=== PATIENT | male | born 1955 | race African-American/Black ===

== ENCOUNTER 2016-05-25 06:00 | Inpatient (IN) | payer MEDICARE, MEDICAID ==
[~2016-05-25] VITALS: Ht 185.4 cm; Wt 75.0 kg
--- NOTE | ~2016-05-25 | HEMODYNAMI ---
PATIENT:VIVIEN REYES SR MEDICAL RECORD: [id number] : 57 LOCATION:[facility] [facility]# [id number] ADMISSION DATE: 05/25/16 Generatedon:05/26/201610:07 Patient name: VIVIEN REYES Patient #: [id number] : 1955 Date of study: 05/26/2016 Page: Of Hemodynamic Procedure Report Patient Data Patient Demographics Procedure consent was obtained First Name: VIVIEN Gender: Male Last Name: ERIC Suffix: [facility] Initial: D : 1955 Patient #: [id number] Age: 61 year(s) Race: Black SSN: [id number] Additional ID: [id number] Contact details [address]: [address] [place] [address] State: [place] City: [place] Zip code: [address] Past Medical History Allergies Allergen Reaction Date Comments Reported Other allergy 01/01/2016 penicillin Penicillins 01/02/2016 Penicillins 05/25/2016 Admission Admission Data Admission Date: 05/25/2016 Admission Time: 16:47 Arrival Date: 05/25/2016 Arrival Time: 10:30 Admit Source: Other Insurance Payor: Medicare Room #: D.2116 Height (in.): 73 BSA: 1.96 (m2) Height (cm.): 185.42 BMI: 21.11 (kg/m2) Weight (lbs.): 160 Weight (kg.): 72.57 Lab Results Lab Result Date: 05/25/2016 Lab Result Time: 0:00 Biochemistry Name Units Result Min Max BUN mg/dl 16 --(---*)-- 7 18 Creatinine mg/dl 1.4 --(----)*- 0.6 1.3 CBC Name Units Result Min Max Hemoglobin g/dl 11.1 *-(----)-- 13.5 17.5 Procedure Procedure Types Cath Procedure Diagnostic Procedure FFR/IVUS Intra-Coronary IVUS Initial PCI Procedure Coronary Stent Initial Miscellaneous Procedures Moderate Sedation up to 45 minutes Procedure Description Procedure Date Procedure Date: 05/26/2016 Procedure Start Time: 9:51 Procedure End Time: 10:07 Procedure Staff Name Function Gio Gomez MD Performing Physician Kell Ang RN Nurse Vidal Donnelly RN Service And Repair Supervisor Gissell Murguia RT Scrub Ramirez Arrieta RT Monitor Procedure Data Cath Procedure Fluoroscopy Diagnostic fluoroscopy Total fluoroscopy Time: 4 time: 4 min min Diagnostic fluoroscopy Total fluoroscopy dose: 342 dose: 342 mGy mGy Contrast Material Contrast Material Type Amount (ml) Isovue 300 74 Entry Location Entry Primary Successful Side Size Upsize Upsize Entry Closure Succes sful Closure Location (Fr) 1 (Fr) 2 (Fr) Remarks Device Remarks Femoral Left 6 Fr Exoseal artery Short Estimated blood loss: 10 ml Procedure Complications No complications Procedure Medications Medication Administration Route Dosage Oxygen NC 2 l/min Lidocaine 2% added to field 20 Heparin Flush Bag added to field 2 bags (1000units/500ml NS) 0.9% NaCl I.V. 100 ml/hr Versed I.V. 1 mg Fentanyl I.V. 50 mcg Fentanyl I.V. 50 mcg Versed I.V. 1 mg Versed I.V. 1 mg Fentanyl I.V. 50 mcg Versed I.V. 1 mg Fentanyl I.V. 50 mcg Heparin Bolus I.V. 4000 units Hemodynamics Rest BSA: 1.96 (m2) HGB: 11.1 (g/dl) O2 Consumption: Estimated: 247.26 (ml/min) O2 Co nsumption indexed: Estimated:126.15 (ml/min/m) Heart Rate: 93 (bpm) Snapshots Pre Cath Intra NCS Post Cath Vital Signs Time Heart Resp SPO2 etCO2 IQ2oqup NIBP (mmHg) Rhythm Pain Sedation Rate (ipm) (%) (mmHg) (mmHg) Status Level (bpm) 9:05:33 95 24 100 0 0 115/78(94) NSR 0 (11) 10(A) , No pain 9:09:37 93 23 100 0 0 120/82(101) NSR 0 (11) 10(A) , No pain 9:13:40 94 19 100 0 0 117/82(94) NSR 0 (11) 10(A) , No pain 9:17:46 93 21 100 0 0 118/73(99) NSR 0 (11) 10(A) , No pain 9:21:52 93 21 99 0 0 118/76(93) NSR 0 (11) 10(A) , No pain 9:25:56 91 22 99 0 0 121/78(93) NSR 0 (11) 10(A) , No pain 9:30:03 95 22 100 0 0 114/71(88) NSR 0 (11) 10(A) , No pain 9:34:09 92 18 98 0 0 111/69(91) NSR 0 (11) 9(A) , No pain 9:38:15 90 19 99 0 0 107/67(86) NSR 0 (11) 9(A) , No pain 9:42:18 87 19 99 0 0 114/69(94) NSR 0 (11) 9(A) , No pain 9:46:20 92 22 94 0 0 106/82(97) NSR 0 (11) 9(A) , No pain 9:50:30 88 15 95 0 0 114/62(100) NSR 0 (11) 9(A) , No pain 9:54:32 98 20 94 0 0 110/85(92) NSR 0 (11) 9(A) , No pain 9:58:34 95 20 96 0 0 120/77(86) NSR 0 (11) 10(A) , No pain 10:02:41 96 31 95 0 0 117/70(90) NSR 0 (11) 10(A) , No pain 10:06:45 97 20 98 0 0 120/77(99) NSR 0 (11) 10(A) , No pain Medications Time Medication Route Dose Verified Delivered Reason Notes Effectiveness by by 9:12:26 Oxygen NC 2 Gio Castorena used for l/min Patricia Ang RN procedure 9:12:37 Lidocaine 2% added 20ml Gio Powers for local to vial Patricia Gomez MD anesthetic field 9:12:42 Heparin Flush added 2 Gio Powers used for Bag to bags Patricia Gomez MD procedure (1000units/500ml field NS) 9:12:50 0.9% NaCl I.V. 100 Giocarmen Castorena Per physician ml/hr Patricia Ang RN 9:32:33 Versed I.V. 1 mg Gio Buffie for sedation Patricia Ang RN 9:32:38 Fentanyl I.V. 50 Gio Buffie for sedation mcg Patricia Ang RN 9:37:05 Fentanyl I.V. 50 Gio Buffie for sedation mcg Patricia Ang RN 9:37:15 Versed I.V. 1 mg Gio Buffie for sedation Patricia Ang RN 9:48:19 Versed I.V. 1 mg Gio Buffie for sedation Patricia Ang RN 9:48:22 Fentanyl I.V. 50 Gio Buffie for sedation mcg Patricia Ang RN 9:52:08 Heparin Bolus I.V. 4000 Gio Buffie for verifie d units Patricia Ang RN anticoagulation with dr gomez 9:55:17 Versed I.V. 1 mg Gio Buffie for sedation Patricia Ang RN 9:55:26 Fentanyl I.V. 50 Gio Estevezie for sedation mcg Patricia Ang RN Procedure Log Time Note 8:53:06 Patient Height : 73 inches 8:53:06 Patient Weight : 160 lbs 8:53:07 Vidal Donnelly RN sent for patient. Start room use. 8:53:08 Time tracking: Regular hours 8:53:13 Plan of Care:Hemodynamics will remain stable., Cardiac rhythm will remain stable., Comfort level will be maintained., Respiratory function will remain adequate., Patient/ family verbilizes understanding of procedure., Procedure tolerated without complication., Recovers from procedure without complications.. 9:04:28 Patient received from PCU to CCL 1 Alert and oriented. Tansferred to table in Supine position. 9:04:29 Warm blankets applied, and connie hugger turned on for patient comfort. 9:04:29 Correct patient and procedure confirmed by team. 9:04:31 Signed procedure consent form obtained from patient. 9:04:32 ECG and BP/O2 sat monitors applied to patient. 9:04:33 Vital chart was started 9:04:34 Full Disclosure recording started 9:04:37 Rhythm: sinus rhythm 9:07:45 H&P Date Dictated: 05/26/2016 Within 30 days and on chart.. 9:07:47 Pre-procedure instructions explained to patient. 9:07:47 Pre-op teaching completed and patient verbalized understanding. 9:07:48 Family in waiting room. 9:07:50 Patient NPO since Midnight. 9:07:52 Is the patient allergic to Iodine/contrast media? No. 9:07:53 Is patient on blood thinner?Yes 9:07:56 ACC The patient was administered the following blood thiners within the last 24 hours: ACCPlavix 9:07:58 Patient diabetic? No. 9:08:01 Previous problem with sedation/anesthesia? No ? 9:08:03 Snore? No 9:08:05 Sleep apnea? No 9:08:06 Deviated septum? No 9:08:07 Opens mouth fully? Yes 9:08:07 Sticks out tongue? Yes 9:08:09 Airway obstruction? No ? 9:08:11 Dentures? No ? 9:08:14 Pre procedure: left dorsailis pedis pulse 1+ Palpable, but thready & weak; easily obliterated 9:08:17 Patient pain scale 0/10 ?. 9:08:24 IV patent on arrival in left forearm with 0.9% NaCl at [facility]. 9:08:26 Lab results completed and on chart. 9:08:30 Left groin area was prepped with chlora-prep and draped in sterile fashion 9:08:32 Alarms reviewed by R. N. 9:08:32 Sharps counted by scrub and verified by R.N. 9:08:36 Use device set Femoral PCI 9:08:37 Tegaderm 4 x 4 opened to sterile field. 9:08:38 Acist Manifold opened to sterile field. 9:08:39 Acist Syringe opened to sterile field. 9:08:40 Acist Hand Control opened to sterile field. 9:08:40 Bag Decanter opened to sterile field. 9:08:40 Medline Cath Pack opened to sterile field. 9:08:41 Terumo 6Fr Troy Sheath opened to sterile field. 9:08:41 St Thien 260cm J .035 wire opened to sterile field. 9:08:41 Merit BasixCompak Inflation Kit opened to sterile field. 9:12:26 Oxygen 2 l/min NC was given by Kell Ang RN; used for procedure; 9:12:37 Lidocaine 2% 20ml vial added to field was given by Gio Gomez MD; for local anesthetic; 9:12:42 Heparin Flush Bag (1000units/500ml NS) 2 bags added to field was given by Gio Gomez MD; used for procedure; 9:12:50 0.9% NaCl 100 ml/hr I.V. was given by Kell Ang RN; Per physician; 9:14:06 Baseline sample Acquired. 9:14:19 Tegaderm 4 x 4 opened to sterile field. 9:14:21 Acist Manifold opened to sterile field. 9:14:22 Acist Hand Control opened to sterile field. 9:14:23 Acist Syringe opened to sterile field. 9:14:23 Bag Decanter opened to sterile field. 9:14:24 Medline Cath Pack opened to sterile field. 9:14:24 Terumo 5Fr Troy Sheath opened to sterile field. 9:14:24 St Thien 260cm J .035 wire opened to sterile field. 9:18:40 Zero performed for pressure channel P1 9:19:43 Zero performed for pressure channel P1 9:26:15 Physician arrived 9::15 --------ALL STOP TIME OUT------ 9::15 Final Timeout: patient, procedure, and site verified with staff and physician. All members of the team are in agreement. 9:26:18 Left groin site verified by team. 9::21 Physical assessment completed. ASA score P 2 - A patient with mild systemic disease as per Gio Gomez MD. 9:26:26 Sedation plan: IV Moderate Sedation Versed, Fentanyl 9:32:33 Versed 1 mg I.V. was given by Kell Ang RN; for sedation; 9:32:38 Fentanyl 50 mcg I.V. was given by Kell Ang RN; for sedation; 9:37:05 Fentanyl 50 mcg I.V. was given by Kell Ang RN; for sedation; 9:37:15 Versed 1 mg I.V. was given by Kell Ang RN; for sedation; 9:48:19 Versed 1 mg I.V. was given by Kell Ang RN; for sedation; 9:48:22 Fentanyl 50 mcg I.V. was given by Kell Ang RN; for sedation; 9:51:01 Cordis 6FR XBLAD 3.5 guide catheter opened to sterile field. 9:51:02 Baltazar Whisper J 300cm 0.014 guide wire opened to sterile field. 9:51:03 Merit BasixCompak Inflation Kit opened to sterile field. 9:51:04 [place] Flanagan Eagleye IVUS Catheter opened to sterile field. 9:51:08 Procedure started. 9:51:11 Local anesthetic to left femerol artery with Lidocaine 2% by Gio Gomez MD.INITIAL ACCESS ONLY 9:51:17 Terumo 6Fr Troy Sheath opened to sterile field. 9:51:25 A 6 Fr Short sheath was inserted into the Left Femoral artery 9:51:39 6 Fr XBLAD 3.5 guide catheter was inserted over the wire 9:51:41 WHISPER wire advanced. 9:51:44 Wire advanced across lesion. 9:52:08 Heparin Bolus 4000 units I.V. was given by Kell Ang RN; for anticoagulation; verified with dr gomez 9:52:15 IVUS catheter advanced over wire. 9:52:17 IVUS pass to LAD lesion performed. 9:53:59 IVUS catheter removed over wire. 9:55:17 Versed 1 mg I.V. was given by Kell Ang RN; for sedation; 9:55:26 Fentanyl 50 mcg I.V. was given by Kell Ang RN; for sedation; 9:56:49 Inflation Number: 1 A Medtronic Resolute 3.5 X 22 stent was prepped and advanced across the Mid LAD. The stent was deployed at 17 MIKKI for 0:10 (min:sec). 9:58:19 ACC PCI Site: mLAD has 71% stenosis. 9:58:21 ACC Pre-intervention RADHA Flow is 3. 9:58:23 ACC Post-intervention RADHA Flow is 3. 9:59:53 Stent catheter was removed intact over wire. 9:59:53 Wire removed. 9:59:54 Guide catheter removed. 10:00:27 Cordis 6Fr Exoseal opened to sterile field. 10:00:36 Sheath removed intact; hemostasis achieved with Exoseal to the Left Femoral artery. 10:00:38 Procedure ended.(Physican Out) 10:02:54 Fluoroscopy time 04.00 minutes. 10:02:57 Flurop Dose total: 342 10::57 Fluoroscopy dose: 342 mGy 10:03:01 Contrast amount:Isovue 300 74ml. 10:03:02 Sharps counted by scrub and verified by R.N. 10:03:04 Insertion/operative site no bleeding no hematoma. 10:03:06 Post-op/insertion site Left Femoral artery dressed using a 4 x 4 and Tegaderm. 10:03:11 Post left femerol artery:stable, soft, clean and dry 10:03:19 Post Procedure Pulses reassessed and unchanged 10:03:22 Post-procedure physical assessment completed. ASA score P 2 - A patient with mild systemic disease as per Gio Gomez MD. 10:03:24 Post procedure rhythm: unchanged. 10:03:26 Estimated blood loss: 10 ml 10:03:28 Post procedure instruction explained to patient.Patient verbalizes understanding. 10:03:28 Patient needs reinforcement of post procedure teaching. 10:04:07 Procedure type changed to Cath procedure, Diagnostic procedure, FFR/IVUS, Intra-Coronary IVUS Initial, PCI procedure, Coronary Stent Initial, Miscellaneous Procedures, Moderate Sedation up to 45 minutes 10:06:25 Procedure and supply charges have been captured, reviewed, submitted and are correct. 10:06:27 Procedure Complication : No complications 10:06:29 Vital chart was stopped 10:06:29 See physician's report for complete and final results. 10:06:35 Report given to PCU. 10:06:37 Patient transfered to PCU with Stretcher. 10:07:07 Procedure ended. 10:07:07 Full Disclosure recording stopped 10:07:15 ACC-PCI Only Patient was given prescriptions, or instructed by Gio Gomez MD to start/continue the following medications upon discharge: Plavix 10:07:17 End room use (Document Last) Intervention Summary Intervention Notes Time ActionType Lesion and Equipment Action# Pressure Duration Attributes Used 9:56:49 Place stent Mid LAD Medtronic 1 17 00:10 Resolute 3.5 X 22 stent Device Usage Item Name Manufacture Quantity Catalog Hospital Part Current Minimal Lot# / Number Charge Number Stock Stock Serial# Code Tegaderm 4 3M 2 [id number] [id number] [id number] 5 x 4 Acist Acist 2 73921 712247 083640 291043 5 Manifold [employer] Inc Acist Acist 2 41006 228116 220618 441759 20 Syringe Medical Systems Inc Acist Hand Acist 2 15450 478851 493853 185769 5 Control Medical Systems Inc Bag Microtek 2 2002S 731833 25546 806351 5 Decanter Medical Inc. Medline Cardinal 2 [id number] 478940 39452 553974 5 Cath Pack Health Terumo 6Fr Terumo 2 [id number] 648124 021833 595833 [address] Thien St Thien 2 463032 874154 593365 499734 30 260cm J .035 wire Merit Merit 2 [id number] 260975 837804 287305 15 BasixCompak Medical Inflation Kit Terumo 5Fr Terumo 1 [id number] 982096 855343 046106 40 Troy Sheath Cordis 6FR Cardinal 1 [id number] 509617 970356 012294 10 XBLAD 3.5 Health guide catheter Baltazar Baltazar 1 [id number] 274593 645220 234090 5 Whisper J Vascular 300cm 0.014 guide wire [place] 1 [id number] 448318 254285 838139 8 Flanagan Eagleye IVUS Catheter Medtronic Medtronic 1 [id number] 927716 980967 8 [id number] Resolute 3.5 X 22 stent Cordis 6Fr Cardinal 1 EX600 871962 298958 933024 10 [employer] Signature Audit Gay Stage Time Signature Unsigned Intra-Procedure 05/26/2016 Ramirez Arrieta 10:07:38 AM RT(R) Signatures Monitor : Ramirez Arrieta RT Signature : Date : Time : [facility] [address] [place] [address]
--- NOTE | ~2016-05-25 | HEMODYNAMI ---
PATIENT:VIVIEN REYES SR MEDICAL RECORD: [id number] : 57 LOCATION:D.CAT ADMISSION DATE: 05/25/16 Generatedon:05/25/201613:05 Patient name: VIVIEN REYES Patient #: [id number] : 1955 Date of study: 05/25/2016 Page: Of Hemodynamic Procedure Report Patient Data Patient Demographics Procedure consent was obtained First Name: VIVIEN Gender: Male Last Name: ERIC Suffix: [facility] Initial: D : 1955 Patient #: [id number] Age: 61 year(s) Race: Black SSN: [id number] Additional ID: [id number] Contact details Address: [address] [place] [address] State: [place] City: [place] Zip code: [address] Past Medical History Allergies Allergen Reaction Date Comments Reported Other allergy 01/01/2016 penicillin Penicillins 01/02/2016 Penicillins 05/25/2016 Admission Admission Data Admission Date: 05/25/2016 Admission Time: 8:11 Arrival Date: 05/25/2016 Arrival Time: 10:30 Admit Source: Other Insurance Payor: Medicare Height (in.): 73 BSA: 1.96 (m2) Height (cm.): 185.42 BMI: 21.11 (kg/m2) Weight (lbs.): 160 Weight (kg.): 72.57 Lab Results Lab Result Date: 05/25/2016 Lab Result Time: 0:00 Biochemistry Name Units Result Min Max BUN mg/dl 16 --(---*)-- 7 18 Creatinine mg/dl 1.4 --(----)*- 0.6 1.3 CBC Name Units Result Min Max Hemoglobin g/dl 11.1 *-(----)-- 13.5 17.5 Procedure Procedure Types Cath Procedure Diagnostic Procedure [facility] LH w/Coronaries FFR/IVUS Intra-Coronary IVUS Initial PCI Procedure PTCA Initial Miscellaneous Procedures Moderate Sedation up to 30 minutes Procedure Description Procedure Date Procedure Date: 05/25/2016 Procedure Start Time: 12:42 Procedure End Time: 13:00 Procedure Staff Name Function Gio Gomez MD Performing Physician Georgie Lamb RN Nurse Campos Salguero RT Monitor Priyank Dominguez RT Scrub Procedure Data Cath Procedure Fluoroscopy Diagnostic fluoroscopy Total fluoroscopy Time: 5 time: 5 min min Diagnostic fluoroscopy Total fluoroscopy dose: 748 dose: 748 mGy mGy Contrast Material Contrast Material Type Amount (ml) Isovue 300 94 Entry Location Entry Primary Successful Side Size Upsize Upsize Entry Closure Succes sful Closure Location (Fr) 1 (Fr) 2 (Fr) Remarks Device Remarks Femoral Right 5 Fr 6 Fr Vascade artery Short Closure System Diagnostic catheters Device Type Used For End Catheter Placement Cordis 5Fr Pigtail LV Angiography Catheter (MP) Cordis 5Fr JL 4.0 Left Coronary Catheter (MP) Angiography Cordis 5Fr 3DRC Catheter Right Coronary (MP) Angiography Procedure Complications No complications Procedure Medications Medication Administration Route Dosage Oxygen NC 2 l/min Heparin Flush Bag added to field 2 bags (1000units/500ml NS) Lidocaine 2% added to field 20 Versed I.V. 1 mg Fentanyl I.V. 50 mcg Heparin Bolus I.V. 4000 units Versed I.V. 1 mg Fentanyl I.V. 50 mcg Versed I.V. 1 mg Fentanyl I.V. 50 mcg Versed I.V. 1 mg Fentanyl I.V. 50 mcg Hemodynamics Rest BSA: 1.96 (m2) HGB: 11.1 (g/dl) O2 Consumption: Estimated: 253.14 (ml/min) O2 Co nsumption indexed: Estimated:129.15 (ml/min/m) Heart Rate: 101 (bpm) Snapshots Pre Cath Intra NCS Post Cath Vital Signs Time Heart Resp SPO2 NIBP Rhythm Pain Sedation Rate (ipm) (%) (mmHg) Status Level (bpm) 12:16:59 90 13 97 119/79(89) NSR 0 (11) 10(A) , No pain 12:21:02 89 19 100 113/74(91) NSR 0 (11) 10(A) , No pain 12:25:06 91 20 100 112/74(91) NSR 0 (11) 10(A) , No pain 12:29:10 95 33 98 101/72(93) NSR 0 (11) 10(A) , No pain 12:33:10 93 18 99 104/71(84) NSR 0 (11) 10(A) , No pain 12:37:09 96 16 96 102/81(90) NSR 0 (11) 10(A) , No pain 12:41:09 93 16 98 109/69(80) NSR 0 (11) 10(A) , No pain 12:45:11 93 15 99 111/75(97) NSR 0 (11) 10(A) , No pain 12:49:12 100 20 97 101/74(87) NSR 0 (11) 9(A) , No pain 12:53:10 98 19 97 109/73(84) NSR 0 (11) 9(A) , No pain 12:57:09 98 21 97 118/76(92) NSR 0 (11) 9(A) , No pain 13:03:01 98 17 96 114/80(87) NSR 0 (11) 9(A) , No pain Medications Time Medication Route Dose Verified Delivered Reason Notes Effectiveness by by 12:17:40 Oxygen NC 2 Gio Georgie Per physician l/min Patricia Lamb RN 12:17:46 Heparin Flush added 2 Gio Gio used for Bag to bags Patricia Gomez MD procedure (1000units/500ml field NS) 12:17:54 Lidocaine 2% added 20ml Gio Gio used for to vial Patricia Gomez MD procedure field 12:40:28 Versed I.V. 1 mg Gio Georgie for sedation Patricia Lamb RN 12:40:36 Fentanyl I.V. 50 Gio Georgie for sedation mcg Patricia Lamb RN 12:43:21 Versed I.V. 1 mg Gio Georgie for sedation Patricia Lamb RN 12:43:31 Fentanyl I.V. 50 Gio Georgie for sedation mcg Patricia Lamb RN 12:45:08 Fentanyl I.V. 50 Gio Georgie for sedation mcg Patricia Lamb RN 12:45:48 Versed I.V. 1 mg Gio Georgie for sedation Patricia Lamb RN 12:47:53 Heparin Bolus I.V. 4000 Gio Georgie for dose units Patricia Lamb RN anticoagulation verified with dr gomez 12:48:17 Versed I.V. 1 mg Gio Jacques for sedation Patricia Lamb RN 12:48:32 Fentanyl I.V. 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 Start room use. 12:01:03 Lab Result : BUN 16 mg/dl 12:01:03 Lab Result : Hemoglobin 11.1 g/dl 12:01:03 Lab Result : Creatinine 1.4 mg/dl 12:08:36 Time tracking: Regular hours 12:08:41 Plan of Care:Hemodynamics will remain stable., Cardiac rhythm will remain stable., Comfort level will be maintained., Respiratory function will remain adequate., Patient/ family verbilizes understanding of procedure., Procedure tolerated without complication., Recovers from procedure without complications.. 12:12:22 Patient received from Outpatients to [facility] 2 Alert and oriented. Tansferred to table in Supine position. 12:12:23 Warm blankets applied, and connie hugger turned on for patient comfort. 12:12:24 Correct patient and procedure confirmed by team. 12:12:24 ECG and BP/O2 sat monitors applied to patient. 12:15:48 Vital chart was started 12:16:28 Baseline sample Acquired. 12:17:40 Oxygen 2 l/min NC was given by Georgie Lamb RN; Per physician; 12:17:46 Heparin Flush Bag (1000units/500ml NS) 2 bags added to field was given by Gio Gomez MD; used for procedure; 12:17:54 Lidocaine 2% 20ml vial added to field was given by Gio Gomez MD; used for procedure; 12:20:35 Baseline sample Acquired. 12:20:38 Rhythm: sinus rhythm 12:20:40 Full Disclosure recording started 12:26:01 H&P Date Dictated: 05/20/2016 Within 30 days and on chart., H&P Addendum completed by physician on day of procedure. (MUST COMPLETE FOR ALL OUTPATIENTS). 12:26:06 Pre-procedure instructions explained to patient. 12:26:06 Pre-op teaching completed and patient verbalized understanding. 12:26:08 Family unavailable. 12:26:10 Patient NPO since Midnight. 12:28:42 Patient allergic to Penicillins 12:28:44 Is the patient allergic to Iodine/contrast media? No. 12:28:48 Is patient on blood thinner?Yes 12:28:50 ACC The patient was administered the following blood thiners within the last 24 hours: ACCPlavix 12:28:52 Patient diabetic? No. 12:28:53 ----Pre-sedation anethsthesia assessment.---- 12:28:55 Previous problem with sedation/anesthesia? No ? 12:28:56 Snore? No 12:28:58 Sleep apnea? No 12:28:59 Deviated septum? No 12:29:03 Opens mouth fully? Yes 12:29:04 Sticks out tongue? Yes 12:29:07 Airway obstruction? Unknown ? 12:29:09 Dentures? No ? 12:29:11 Pre procedure: right dorsailis pedis pulse 1+ Palpable, but thready & weak; easily obliterated 12:29:16 Patient pain scale 0/10 ?. 12:29:19 IV patent on arrival in left antecubital with 0.9% NaCl at 10ml/hr. 12:29:21 Lab results completed and on chart. 12:29:25 Right groin area was prepped with chlora-prep and draped in sterile fashion 12:: Alarms reviewed by R. N. 12:: Sharps counted by scrub and verified by R.N. 12:: Physician paged 12:29:30 Use device set Femoral Dx 12:29:31 Acist Syringe opened to sterile field. 12:29:32 Bag Decanter opened to sterile field. 12:29:33 Medline Cath Pack opened to sterile field. 12:29:33 Terumo 5Fr [place] Sheath opened to sterile field. 12:29:33 St Thien 260cm J .035 wire opened to sterile field. 12::34 Acist Hand Control opened to sterile field. 12::35 Acist Manifold opened to sterile field. 12::35 Diagnostic Infinity 5Fr Multipack catheter opened to sterile field. 12:29:36 Tegaderm 4 x 4 opened to sterile field. 12:31:42 Zero performed for pressure channel P1 12:40:15 --------ALL STOP TIME OUT------ 12:40:16 Final Timeout: patient, procedure, and site verified with staff and physician. All members of the team are in agreement. 12:40:17 Right groin site verified by team. 12:40:20 Physical assessment completed. ASA score P 2 - A patient with mild systemic disease as per Gio Gomez MD. 12:40:24 Sedation plan: IV Moderate Sedation Versed, Fentanyl 12:40:28 Versed 1 mg I.V. was given by Georgie Lamb RN; for sedation; 12:40:36 Fentanyl 50 mcg I.V. was given by Georgie Lamb RN; for sedation; 12:42:01 Procedure started. 12:42:11 Local anesthetic to right femoral artery with Lidocaine 2% by Gio Gomez MD.INITIAL ACCESS ONLY 12:42:18 A 5 Fr sheath was inserted into the Right Femoral artery 12:42:23 A Cordis 5Fr Pigtail Catheter (MP) was advanced over the wire and used for LV Angiography. 12:42:27 LV angiography performed. 12:42:29 LV gram done using GARCIA 12::36 Injector settings: Ml/sec: 10, Volume: 20, 12:43:21 Versed 1 mg I.V. was given by Georgie Lamb RN; for sedation; 12:43:31 Fentanyl 50 mcg I.V. was given by Georgie Lamb RN; for sedation; 12:43:31 EF : 20 % 12:43:57 Catheter removed. 12:44:14 A Cordis 5Fr JL 4.0 Catheter (MP) was advanced over the wire and used for Left Coronary Angiography. 12:44:39 LCA angiography performed. 12:44:48 Catheter removed. 12:44:54 A Cordis 5Fr 3DRC Catheter (MP) was advanced over the wire and used for Right Coronary Angiography. 12:44:57 RCA angiography performed. 12:45:08 Fentanyl 50 mcg I.V. was given by Georgie Lamb RN; for sedation; 12:45:32 Catheter removed. 12:45:48 Versed 1 mg I.V. was given by Georgie Lamb RN; for sedation; 12:46:02 Terumo 6Fr [place] Sheath opened to sterile field. 12:46:02 Baltazar Whisper J 300cm 0.014 guide wire opened to sterile field. 12:46:03 [place] IVUS Catheter opened to sterile field. 12:46:03 PoachIt BasixCompak Inflation Kit opened to sterile field. 12:46:04 Machinimatronic Launcher 6Fr 3DRC guide catheter opened to sterile field. 12:46:20 Sheath upsized to a 6 Fr Short. 12:46:25 6 Fr 3drc guide catheter was inserted over the wire 12:46:28 whisper wire advanced. 12:46:31 FFR/IVUS 12:46:31 IVUS catheter advanced over wire. 12:46:33 IVUS pass to RCA lesion performed. 12:47:53 Heparin Bolus 4000 units I.V. was given by Georgie Lamb RN; for anticoagulation; dose verified with dr gomez 12:48:10 Procedure type changed to Cath procedure, Diagnostic procedure, LHC, LHC w/Coronaries, FFR/IVUS, Intra-Coronary IVUS Initial, PCI procedure, PTCA Initial, Miscellaneous Procedures, Moderate Sedation up to 30 minutes 12:48:17 Versed 1 mg I.V. was given by Georgie Lamb RN; for sedation; 12:48:32 Fentanyl 50 mcg I.V. was given by Georgie Lamb RN; for sedation; 12:51:23 IVUS catheter removed over wire. 12:52:58 Inflation number: 1 A NC Emerge OTW 5.0 x 12 balloon was prepped and advanced across the Mid RCA, then inflated to 13 MIKKI for 0:10 (min:sec). 12:53:08 Inflation number: 2 The NC Emerge OTW 5.0 x 12 balloon was reinflated across the Mid RCA, to 13 MIKKI for 0:09 (min:sec). 12:53:20 Inflation number: 3 The NC Emerge OTW 5.0 x 12 balloon was reinflated across the Mid RCA, to 13 MIKKI for 0:11 (min:sec). 12:53:45 Inflation number: 4 The NC Emerge OTW 5.0 x 12 balloon was reinflated across the Mid RCA, to 9 MIKKI for 0:10 (min:sec). 12:54:59 Balloon removed over the wire. 12:54:59 Wire removed. 12:55:00 Guide catheter removed. 12:55:32 Medtronic Launcher 6Fr AR 2.0 guide catheter opened to sterile field. 12:55:43 whisper wire advanced. 12:57:33 Inflation number: 5 The NC Emerge OTW 5.0 x 12 balloon was reinflated across the Mid RCA, to 17 MIKKI for 0:15 (min:sec). 12:57:47 Inflation number: 6 The NC Emerge OTW 5.0 x 12 balloon was reinflated across the Mid RCA, to 17 MIKKI for 0:10 (min:sec). 12:57:58 Inflation number: 7 The NC Emerge OTW 5.0 x 12 balloon was reinflated across the Mid RCA, to 17 MIKKI for 0:00 (min:sec). 12:58:05 Balloon removed over the wire. 12:58:06 Wire removed. 12:58:06 Guide catheter removed. 12:58:11 Contrast amount:Isovue 300 94ml. 12:58:17 Sheath removed intact; hemostasis achieved with Vascade Closure System to the Right Femoral artery. 12:58:24 Vascade 6/7 Fr Closure Device opened to sterile field. 12:58:26 Procedure ended.(Physican Out) 12:58:49 Fluoroscopy time 05.00 minutes. 12:58:54 Fluoroscopy dose: 748 mGy 12:58:54 Flurop Dose total: 748 12:58:55 Sharps counted by scrub and verified by R.N. 12:58:56 Insertion/operative site no bleeding no hematoma. 12:58:58 Post-op/insertion site Right Femoral artery dressed using a 4 x 4 and Tegaderm. 12:59:01 Post right femoral artery:stable 12:59:03 Post Procedure Pulses reassessed and unchanged 12:59:05 Post procedure: right dorsailis pedis pulse 1+ Palpable, but thready & weak; easily obliterated. 12:59:11 Post procedure rhythm: sinus tachycardia 12:59:13 Post procedure instruction explained to patient.Patient verbalizes understanding. 12:59:43 Procedure and supply charges have been captured, reviewed, submitted and are correct. 12:59:48 Procedure Complication : No complications 13:00:27 Vital chart was stopped 13:00:28 See physician's report for complete and final results. 13:00:31 Report given to PCU. 13:00:34 Patient transfered to PCU with Bed. 13:00:36 Procedure ended. 13:00:36 Full Disclosure recording stopped 13:00:39 End room use (Document Last) Intervention Summary Intervention Notes Time ActionType Lesion and Equipment Action# Pressure Duration Attributes Used 12:52:58 Inflate Mid RCA NC Emerge 1 13 00:10 balloon OTW 5.0 x 12 balloon 12:53:08 Reinflate Mid RCA NC Emerge 2 13 00:09 balloon OTW 5.0 x 12 balloon 12:53:20 Reinflate Mid RCA NC Emerge 3 13 00:11 balloon OTW 5.0 x 12 balloon 12:53:45 Reinflate Mid RCA NC Emerge 4 9 00:10 balloon OTW 5.0 x 12 balloon 12:57:33 Reinflate Mid RCA NC Emerge 5 17 00:15 balloon OTW 5.0 x 12 balloon 12:57:47 Reinflate Mid RCA NC Emerge 6 17 00:10 balloon OTW 5.0 x 12 balloon 12:57:58 Reinflate Mid RCA NC Emerge 7 17 00:00 balloon OTW 5.0 x 12 balloon Device Usage Item Name Manufacture Quantity Catalog Number Hospital Part Current Mini mal Lot# / Charge Number Stock Stock Serial# Code Acist Acist 1 19841 [id number] 816960 700746 20 Syringe Medical Systems Inc Bag Microtek 1 2002S 312517 16885 983618 5 Carrot.mx Medical Inc. Medline Cardinal 1 [id number] 226589 63203 096425 5 Cath Pack [employer] Terumo 5Fr Terumo 1 [id number] 720839 736826 270558 [address] St Thien 1 151169 449933 168495 020687 30 260cm J .035 wire Acist Hand Acist 1 25037 752486 241663 086208 5 Control Medical Systems Inc Acist Acist 1 09211 878551 510970 776573 5 Kontera Medical Systems Inc Diagnostic Cardinal 1 [id number] 956590 51423 181488 30 Infinity Health 5Fr Multipack catheter Tegaderm 4 3M 1 1626W 092124 722512 182212 5 x 4 Cordis 5Fr Cardinal 1 328563 5 Pigtail Health Catheter (MP) Cordis 5Fr Cardinal 1 276161 5 JL 4.0 Health Catheter (MP) Cordis 5Fr Cardinal 1 667578 5 3DRC Health Catheter (MP) Terumo 6Fr Terumo 1 [id number] 631258 320876 944158 40 [place]ps [place] Sheath Baltazar Baltazar 1 [id number] 716269 610575 822878 5 Whisper J Vascular 300cm 0.014 guide wire [place] 1 [id number] 315072 248312 871144 8 [place] IVUS Catheter Merit Merit 1 [id number] 696395 618503 550723 15 BasixCompak Medical Inflation Kit Medtronic Medtronic 1 [id number] 256525 972621 882290 1 Launcher 6Fr 3DRC guide catheter NC Emerge [place] 1 [id number] 952369 196278 387425 5 [id number] OTW 5.0 x Scientific 12 balloon Medtronic Medtronic 1 [id number] 697576 18073 364854 1 Launcher 6Fr AR 2.0 guide catheter Vascade 6/7 Cardiva 1 [id number] 171079 480043 732799 5 Fr Closure Medical, Device Inc. Signature Audit [place] Stage Time Signature Unsigned Intra-Procedure 05/25/2016 Campos Salguero 1:05:42 PM RT(R) Signatures Monitor : Campos Salguero RT Signature : Date : Time : [facility] [address] [place] [address]
[~2016-05-25 06:00] MED LIST: ASPIRIN325 MG PO; BAYER CHEWABLE81 MG PO; CARDIZEM CD120 MG PO; CLEOCIN HCL300 MG PO; COREG12.5 MG PO; FLAGYL500 MG PO; FLUTICASONE PRO16 GM NASAL; HYDROCODON-ACE1 EAC7 PO; HYDROCODONE-APA1 TAB PO; KEFLEX500 MG PO; LEVAQUIN500 MG PO; MACROBID100 MG PO; MIRALAX17 GM PO; MUCINEX DM ER1 EAC1 PO; NAPROSYN500 MG PO; NICODERM C1 PATCH .2 TRANSDERM; PLAVIX75 MG PO; PREDNISONE20 MG PO; SINGULAIR10 MG PO; TESSALON PERLE100 MG PO
[2016-05-25 08:44] VITALS: BP 122/78; BMI 21.8
[2016-05-25 09:01] LABS: BASOPHILS 0.3 % (0.0-2.0); EOSINOPHILS 5.2 % (0-7); HEMOGLOBIN 11.1 g/dL (13.5-17.5); IMMATURE GRANULOCYTES 0.4 % (0-5); LYMPHOCYTES 13.2 % (15-50); MCHC 32.6 g/dL (31.0-37.0); MCV 91.9 fL (80.0-100.0); MEAN PLATELET VOLUME 9.6 fL (7.4-10.4); MONOCYTES 10.4 % (2-11); NEUTROPHILS 70.5 % (40-80); PLATELET COUNT 360 10x3/uL (130-400); RDW 15.9 % (11.5-14.5); WBC 15.7 10x3/uL (4.8-10.8)
[2016-05-25 09:26] LABS: ANION GAP 12.6 mmol/L (8-16); CARBON DIOXIDE 26.6 mmol/L (21.0-32.0); CREATININE - SERUM 1.4 mg/dL (0.6-1.3); POTASSIUM - SERUM 4.2 mmol/L (3.5-5.1)
--- NOTE | 2016-05-25 13:43 | NUR ---
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 V/S STABLE TELEMERTY SHOWS SR. RIGHT GRON SOFT WITH DRSG DRY AND INTACT. PPP. CALL LIGHT IN REACH WITH SR UP. SEDATED BUT AROUSES EASILY
--- NOTE | 2016-05-25 14:18 | NUR ---
PT LYING QUIETLY. V/S STABLE . RIGHT GROIN SOFT WITH DRSG DRY AND INTACT. PPP. TELEMERTY SHOWS SR. DENIES ANY NEEDS. WILL MONITOR
[2016-05-25 14:20] VITALS: BP 114/80; Ht 185.4 cm; Wt 75.0 kg
--- NOTE | 2016-05-25 14:28 | NUR ---
ADMISSION ASSSESSMENT DONE. 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 MONITOR SHOWS NSR @ RATE OF 87. WILL CONTINUE TO MONITOR. CATH SITE IS CDI AND SHOWS NO EDEMA OR BLEEDING.
[2016-05-25 16:00] VITALS: BP 99/60
--- NOTE | 2016-05-25 18:23 | NUR ---
LYING QUIETLY. RIGHT GROIN SOFT WITH DSG DRY AND INTACT. UP TO BATHROOM. DENIES ANY NEEDS
--- NOTE | 2016-05-25 19:25 | NUR ---
INITIAL ROUNDS MADE. PT SITTING UP IN BED WATCHING TV WITH FAMILY IN ROOM. DISCUSSED PLAN OF CARE AND NPO AFTER [facility] FOR [facility] IN AM. QUESTIONS ANSWERED. DENIES NEEDS OR C/O AT THIS TIME.
[2016-05-25 20:00] VITALS: BP 131/87
[2016-05-26] VITALS (7 sets, daily range): BP systolic 103–121; BP diastolic 61–84
--- NOTE | 2016-05-26 00:38 | NUR ---
PHOTOGRAPHY COLORIST AT BEDSIDE FOR VS, NEEDS ADDRESSED. CALL LIGHT IN REACH. WILL CONT TO MONITOR.
--- NOTE | 2016-05-26 06:30 | NUR ---
RESTING WELL, WATCHING TV. DENIES NEEDS, CONT TO MONITOR.
--- NOTE | 2016-05-26 11:53 | NUR ---
Patient Name: VIVIEN REYES Admission Status: Elective Accout number: [id number] Admission Date: 05-25-2016 : 1955 Admission Diagnosis: Attending: TIA Current LOS: 1 Anticipated DC Date: 05-26-2016 Planned Disposition: Home Primary Insurance: [facility] [place] Discharge Planning Comments: * Is the patient Alert and Oriented? Yes 0 * How many steps to enter\exit or inside your home? 4 0 * PCP DR. HALL 0 * Pharmacy [facility] 0 * Preadmission Environment Home Alone 0 * ADLs Independent 0 * Equipment None 0 * Other Equipment NO MEDICAL EQUIPMENT PROVIDER PREFERENCE 0 * List name and contact numbers for known caregivers / representatives who currently or will assist patient after discharge: JEFF REYES, BROTHER, 0 * Community resources currently utilized None 0 * Please name any agencies selected above. NONE 0 * Additional services required to return to the preadmission environment? No 0 * Can the patient safely return to the preadmission environment? Yes 0 * Has this patient been hospitalized within the prior 30 days at any hospital? No 0 CM MET WITH PT IN ROOM TO DISCUSS DISCHARGE PLANNING AND NEEDS. PT REPORTS LIVING AT HOME INDEPENDENTLY AND ALONE. PT HAS NO MEDICAL EQUIPMENT AND NO OUTSIDE SERVICES ASSISTING IN THE HOME. CM DISCUSSED AVAILABILITY OF HOME HEALTH, REHAB SERVICES AND MEDICAL EQUIPMENT. PT DENIES DISCHARGE NEEDS, REPORTS HE WILL CALL IS SON OR A FRIEND FOR TRANSPORTATION HOME. Hemodialysis Charge Nurse: Robel Brown
[2016-05-26] MEDS ORDERED: COREG 3.1253.125 MG PO (13:22)
--- NOTE | 2016-06-01 10:08 | OP ---
PATIENT NAME: VIVIEN REYES SR MEDICAL RECORD: [id number] :[birth year] LOCATION:D.M2 D.2116 ADMISSION DATE:05/25/16 SURGEON: SALBADOR SHEA MD DATE OF OPERATION: 05/26/2016 PROCEDURES: 1. PTCA stent LAD. 2. Intravascular ultrasound of the LAD. 3. Selective coronary angiography. INDICATION: Cardiomyopathy, congestive heart failure, angina and coronary artery disease. PROCEDURE: After informed consent was obtained and after detailed explanation of risks, benefits as well as alternative therapies, the patient elected to proceed with angiogram and angioplasty. The left femoral area was prepped and draped in normal sterile fashion. The left femoral artery was cannulated via modified Seldinger technique with placement of 6-Ind[place]ian sheath. All catheters exchanged through this sheath. FINDINGS: The left anterior descending has a 74% stenosis in the proximal mid vessel confirmed by intravascular ultrasound, addressed with a 3.5 x 22 mm Resolute stent taken to 17 atmospheres. Result was 0% residual stenosis. OVERALL IMPRESSION: Successful percutaneous transluminal coronary angioplasty stent of the left anterior descending going from 74% residual stenosis confirmed by intravascular ultrasound to 0% residual stenosis. TRANSINT:[id number] Voice Confirmation ID: [id number] DOCUMENT ID: [id number] SALBADOR SHEA MD at 1008 CC: [id number] DICTATION DATE: 05/26/16 1004 CAREGIVERS NON MEDICAL: 05/26/16 1121 DIS IN 05/26/16 [facility] [address] [id number]
--- NOTE | 2016-06-01 10:08 | OP ---
PATIENT NAME: VIVIEN REYES SR MEDICAL RECORD: [id number] :[birth year] LOCATION:D.M2 D.2116 ADMISSION DATE:05/25/16 SURGEON: SALBADOR SHEA MD DATE OF OPERATION: 05/25/2016 PROCEDURES: 1. PTCA, high pressure RCA. 2. Left heart catheterization. 3. Selective coronary angiography. 4. Left ventriculogram. 5. Intravascular ultrasound. INDICATION: Angina and coronary artery disease. PROCEDURE IN DETAIL: After informed consent was obtained and after detailed explanation of risks, benefits as well as alternative therapies, the patient elected to proceed with angiogram and angioplasty. The right femoral area was prepped and draped in normal sterile fashion. The right femoral artery was cannulated via modified Seldinger technique with placement of a 6-Vietnamese sheath. All catheters exchanged through this sheath. FINDINGS: Left ventriculogram was performed in the standard 30-degree GARCIA view reveals global hypokinesis throughout all segments. Overall ejection fraction is 20%. SELECTIVE CORONARY ANGIOGRAPHY: 1. Left main showed no significant angiographic disease. 2. Left anterior descending has a hazy questionable stenosis in the mid vessel, better delineated by the intravascular ultrasound. 3. Left circumflex has previously placed stent, there is hazy area proximal in the stent that would be better delineated by intravascular ultrasound, but this does appear to be at least 70%. 4. The right coronary has multiple areas through the previously placed stent that appear to be greater than 70%. Intravascular ultrasound confirmed that this is a 73% stenosis. PTCA STENT: The in-stent restenosis was treated with 5.0 balloon. Multiple inflations were done to 17 atmospheres. Result was 0% residual stenosis. OVERALL IMPRESSION: Successful high pressure percutaneous transluminal coronary angioplasty for in-stent restenosis to the RCA with a 5.0 balloon going from 73% initial stenosis confirmed by intravascular ultrasound to 0% residual stenosis. TRANSINT:[id number] Voice Confirmation ID: [id number] DOCUMENT ID: [id number] SALBADOR SHEA MD at 1008 CC: [id number] DICTATION DATE: 05/25/16 1302 MEAT GRADER: 05/25/16 1935 DIS IN 05/26/16 [id number] [place] [address]
--- NOTE | 2016-06-01 10:08 | DS ---
PATIENT:VIVIEN CHASE SR :[birth year] MEDICAL RECORD: [id number] DISCHARGE SUMMARY ADMISSION DATE: 05/25/16 DISCHARGE DATE: 05/26/16 DATE OF DISCHARGE: 05/26/2016 DIAGNOSES: 1. Angina. 2. Coronary artery disease. 3. Percutaneous transluminal coronary angioplasty stent of the right coronary artery and left anterior descending this admission. 4. Cardiomyopathy, ischemic. 5. Hypertension. 6. Hyperlipidemia. HOSPITAL COURSE: Mr. Chase presents with anginal symptomatology, found to have an ischemic cardiomyopathy, ejection fraction in the 20%-25% range. He was already on a beta-noemi. He was not put on an SANAZ inhibitor due to past history of renal failure with SANAZ inhibitors. He was found to have 2-vessel coronary artery disease, underwent successful PTCA stent of above territories and was discharged home with the addition of aspirin and Plavix to his medical regimen. We will follow up with [facility] in 1 month. TRANSINT:[id number] Voice Confirmation ID: [id number] DOCUMENT ID: [id number] SALBADOR SHEA MD at 1008 CC: [id number] DICTATION DATE: 05/26/16 1005 CITY SUPERINTENDENT: 05/26/16 1449 DIS IN 05/26/16 [address] [place] [address]
== END 2016-05-26 17:45 | disposition home or self-care (01) | DRG 247 ==
LOC: D.CATH 06:00 → D.M2 13:27 → D.CATH 16:47 → D.M2 16:47
PROVIDERS: ADMIT Internal Medicine Interventional Cardiology
PROC: 4A023N7 Measurement of Cardiac Sampling and Pressure, Left Heart, Percutaneous Approach (ICD-10-PCS; 2016-05-25)
PROC: B2111ZZ Fluoroscopy of Multiple Coronary Arteries using Low Osmolar Contrast (ICD-10-PCS; 2016-05-25)
PROC: B2151ZZ Fluoroscopy of Left Heart using Low Osmolar Contrast (ICD-10-PCS; 2016-05-25)
PROC: B240ZZ3 Ultrasonography of Single Coronary Artery, Intravascular (ICD-10-PCS; 2016-05-25)
PROC: 02703ZZ Dilation of Coronary Artery, One Artery, Percutaneous Approach (ICD-10-PCS; principal; 2016-05-25 10:30)
PROC: 027034Z Dilation of Coronary Artery, One Artery with Drug-eluting Intraluminal Device, Percutaneous Approach (ICD-10-PCS; 2016-05-26)
PROC: B240ZZ3 Ultrasonography of Single Coronary Artery, Intravascular (ICD-10-PCS; 2016-05-26)
DX: T82.855A Stenosis of coronary artery stent, initial encounter (principal); I25.119 Atherosclerotic heart disease of native coronary artery with unspecified angina pectoris; Y83.8 Other surgical procedures as the cause of abnormal reaction of the patient, or of later complication, without mention of misadventure at the time of the procedure; I25.5 Ischemic cardiomyopathy; I11.0 Hypertensive heart disease with heart failure; I50.9 Heart failure, unspecified; E78.5 Hyperlipidemia, unspecified

== ENCOUNTER 2016-06-25 13:09 | Observation (INO) | payer MEDICARE, MEDICAID ==
[~2016-06-25] VITALS: Ht 185.4 cm; Wt 69.4 kg
--- NOTE | ~2016-06-25 | HEMODYNAMI ---
PATIENT:VIVIEN REYES SR MEDICAL RECORD: [id number] : 57 LOCATION[facility] D.2120 [id number] ADMISSION DATE: 06/25/16 Generatedon:06/26/201611:26 Patient name: VIVIEN REYES Patient #: [id number] : 1955 Date of study: 06/26/2016 Page: Of Hemodynamic Procedure Report Patient Data Patient Demographics Procedure consent was obtained First Name: VIVIEN Gender: Male Last Name: ERIC Suffix: [facility] Initial: D : 1955 Patient #: [id number] Age: 61 year(s) Race: Black SSN: [id number] Additional ID: [id number] Contact details Address: [address] [place] [address] State: [place] City: [place] Zip code: [address] Past Medical History Allergies Allergen Reaction Date Comments Reported Other allergy 01/01/2016 penicillin Penicillins 01/02/2016 Penicillins 05/25/2016 Other allergy 06/26/2016 [facility] Admission Admission Data Admission Date: 06/25/2016 Admission Time: 20:10 Arrival Date: 06/25/2016 Arrival Time: 20:10 Admit Source: Other Insurance Payor: Medicare Room #: D.2120 Height (in.): 72.44 BSA: 1.9 (m2) Height (cm.): 184 BMI: 20.38 (kg/m2) Weight (lbs.): 152.12 Weight (kg.): 69 Lab Results Lab Result Date: 06/26/2016 Lab Result Time: 0:00 Biochemistry Name Units Result Min Max BUN mg/dl 14 --(--*-)-- 7 18 Creatinine mg/dl 1.4 --(----)*- 0.6 1.3 CBC Name Units Result Min Max Hemoglobin g/dl 12.8 -*(----)-- 13.5 17.5 Procedure Procedure Types Cath Procedure Diagnostic Procedure LHC LHC w/Coronaries Miscellaneous Procedures Moderate Sedation up to 15 minutes Procedure Description Procedure Date Procedure Date: 06/26/2016 Procedure Start Time: 11:12 Procedure End Time: 11:23 Procedure Staff Name Function Danish Villalta MD Performing Physician Theresa Sutton RT Scrub Kell Ang RN Nurse Latia Alvarado RT Monitor Procedure Data Cath Procedure Fluoroscopy Diagnostic fluoroscopy Total fluoroscopy Time: 1.1 time: 1.1 min min Diagnostic fluoroscopy Total fluoroscopy dose: 310 dose: 310 mGy mGy Contrast Material Contrast Material Type Amount (ml) Isovue 300 60 Entry Location Entry Primary Successful Side Size Upsize Upsize Entry Closure Succes sful Closure Location (Fr) 1 (Fr) 2 (Fr) Remarks Device Remarks Femoral Right 5 Fr Exoseal artery Estimated blood loss: 10 ml Diagnostic catheters Device Type Used For End Catheter Placement Cordis 5Fr JL 4.0 Left Coronary Catheter (MP) Angiography Cordis 5Fr 3DRC Catheter Procedure (MP) Cordis 5Fr Pigtail LV Angiography Catheter (MP) Procedure Complications No complications Procedure Medications Medication Administration Route Dosage Oxygen NC 2 l/min Lidocaine 2% added to field 20 Heparin Flush Bag added to field 2 bags (1000units/500ml NS) 0.9% NaCl I.V. 100 ml/hr Versed I.V. 1 mg Fentanyl I.V. 50 mcg Versed I.V. 1 mg Fentanyl I.V. 50 mcg Fentanyl I.V. 100 mcg Hemodynamics Rest BSA: 1.9 (m2) HGB: 12.8 (g/dl) O2 Consumption: Estimated: 185.05 (ml/min) O2 Con sumption indexed: Estimated:97.39 (ml/min/m) Heart Rate: 17 (bpm) Pressure Samples Time Site Value (mmHg) Purpose Heart Use Rate(bpm) 11:18 LV 86/14,22 Snapshot 79 Gradients Valve Time Site Site Mean SEP/DFP Peak To Heart Use 1 2 (mmHg) (sec/min) Peak Rate (mmHg) (bpm) Aortic 11:19 LV AO 74 Snapshots Pre Cath Intra NCS Post Cath Vital Signs Time Heart Resp SPO2 etCO2 [id number] NIBP Rhythm Pain Sedation Rate (ipm) (%) (mmHg) (mmHg) (mmHg) Status Level (bpm) 10:48:47 75 18 98 0 0 95/63(77) NSR 0 (11) 10(A) , No pain 10:52:46 80 21 100 0 0 103/66(79) NSR 0 (11) 10(A) , No pain 10:56:50 83 17 99 0 0 96/59(71) NSR 0 (11) 10(A) , No pain 11:00:52 78 19 96 0 0 95/63(77) NSR 0 (11) 10(A) , No pain 11:04:54 82 30 95 0 0 92/58(74) NSR 0 (11) 10(A) , No pain 11:08:55 71 18 97 0 0 95/57(70) NSR 0 (11) 10(A) , No pain 11:12:57 69 16 97 0 0 95/61(71) NSR 0 (11) 9(A) , No pain 11:16:59 75 27 95 0 0 92/60(74) NSR 0 (11) 9(A) , No pain 11:20:58 77 25 95 0 0 96/63(81) NSR 0 (11) 10(A) , No pain Medications Time Medication Route Dose Verified Delivered Reason Notes Effe ctiveness by by 10:52:52 Oxygen NC 2 Danish Buffie used for l/min St. Booker Ang RN procedure 10:52:59 Lidocaine 2% added 20ml Danish Danish for local to vial [facility] anesthetic field MD MEYER 10:53:04 Heparin Flush added 2 Danish Danish used for Bag to bags [facility] procedure (1000units/500ml field MD MEYER NS) 10:53:14 0.9% NaCl I.V. 100 Danish Buffie Per ml/hr St. Booker Ang RN physician 11:09:10 Versed I.V. 1 mg Danish Buffie for [facility]. Booker Ang RN sedation 11:09:16 Fentanyl I.V. 50 Danish Buffie for mcg [facility] Booker Ang RN sedation 11:14:43 Versed I.V. 1 mg Danish Buffie for [facility]. Booker Ang RN sedation 11:14:47 Fentanyl I.V. 50 Danish Buffie for mcg [address] Booker Ang RN sedation 11:18:37 Fentanyl I.V. [address] Danish Buffie [address] mcg [address] Booker Ang RN sedation Procedure Log Time Note 9:35:09 Informed consent obtained and on chart 9:35:15 Diagnostic Cath Status : Elective 9:39:45 Admit Source: Other 9:39:52 Arrival Date: 06/25/2016 8:10:00 PM 9:40:00 Insurance Payor : Medicare 9:41:31 Lab Result : Creatinine 1.4 mg/dl 9:41:31 Lab Result : BUN 14 mg/dl 9:41:31 Lab Result : Hemoglobin 12.8 g/dl 10:30:00 Theresa FIGUEROA(R) sent for patient. Start room use. 10:46:07 Time tracking: Regular hours 10:46:16 Plan of Care:Hemodynamics will remain stable., Cardiac rhythm will remain stable., Comfort level will be maintained., Respiratory function will remain adequate., Patient/ family verbilizes understanding of procedure., Procedure tolerated without complication., Recovers from procedure without complications.. 10:46:21 Patient received from Med II to CCL 1 Alert and oriented. Tansferred to table in Supine position. 10:46:22 Warm blankets applied, and connie hugger turned on for patient comfort. 10:46:23 Correct patient and procedure confirmed by team. 10:46:23 ECG and BP/O2 sat monitors applied to patient. 10:47:31 Vital chart was started 10:47:32 Baseline sample Acquired. 10:47:37 Rhythm: sinus rhythm 10:47:40 Full Disclosure recording started 10:47:46 H&P Date Dictated: 06/26/2016 Within 30 days and on chart.. 10:47:47 Pre-procedure instructions explained to patient. 10:47:49 Family in patients room. 10:47:52 Patient NPO since Midnight. 10:48:04 Patient allergic to Other allergyPCN 10:48:12 Is the patient allergic to Iodine/contrast media? No. 10:48:14 Is patient on blood thinner?Yes 10:48:23 ACC The patient was administered the following blood thiners within the last 24 hours: ACCPlavix 10:48:25 Patient diabetic? No. 10:48:29 Snore? Yes 10:48:30 Sleep apnea? No 10:48:51 Airway obstruction? Yes inhaler 10:49:08 Patient pain scale 0/10 ?. 10:49:15 IV patent on arrival in left forearm with 0.9% NaCl at [facility]. 10:49:20 Lab results completed and on chart. 10:49:23 Right groin area was prepped with chlora-prep and draped in sterile fashion 10:49:27 Alarms reviewed by R. N. 10:49:28 Sharps counted by scrub and verified by R.N. 10:49:35 Physician paged 10:49:41 Use device set Femoral Dx 10:49:42 Acist Syringe opened to sterile field. 10:49:43 Bag Decanter opened to sterile field. 10:49:43 Medline Cath Pack opened to sterile field. 10:49:44 Terumo 5Fr [place] Sheath opened to sterile field. 10:49:44 St Thien 260cm J .035 wire opened to sterile field. 10:49:45 Acist Hand Control opened to sterile field. 10:49:46 Acist Manifold opened to sterile field. 10:49:46 Diagnostic Infinity 5Fr Multipack catheter opened to sterile field. 10:49:48 Tegaderm 4 x 4 opened to sterile field. 10:52:52 Oxygen 2 l/min NC was administered by Kell Ang RN; used for procedure; 10:52:59 Lidocaine 2% 20ml vial added to field was administered by Danish Villalta MD; for local anesthetic; 10:53:04 Heparin Flush Bag (1000units/500ml NS) 2 bags added to field was administered by Danish Villalta MD; used for procedure; 10:53:14 0.9% NaCl 100 ml/hr I.V. was administered by Kell Ang RN; Per physician; 10:53:31 IV Extension Set opened to sterile field. 10:56:09 Patient Weight : 152.12 kg 10:56:29 Patient Height : 72.44 cm 10:56:51 Procedure type changed to Cath procedure, Diagnostic procedure, LHC, LHC w/Coronaries, Miscellaneous Procedures, Moderate Sedation up to 15 minutes 11:01:49 Baseline sample Acquired. 11:02:59 Zero performed for pressure channel P1 11:08:18 Physician arrived 11:08:19 --------ALL STOP TIME OUT------ 11:08:23 Final Timeout: patient, procedure, and site verified with staff and physician. All members of the team are in agreement. 11:08:26 Right groin site verified by team. 11:08:36 Physical assessment completed. ASA score P 2 - A patient with mild systemic disease as per Danish Villalta MD. 11:08:41 Sedation plan: IV Moderate Sedation Versed, Fentanyl 11:09:10 Versed 1 mg I.V. was administered by Kell Ang RN; for sedation; 11:09:16 Fentanyl 50 mcg I.V. was administered by Kell Ang RN; for sedation; 11:10:54 End room use (Document Last) 11:12:16 Procedure started. 11:12:38 Local anesthetic to right femoral artery with Lidocaine 2% by Danish Villalta MD.INITIAL ACCESS ONLY 11:12:55 A 5 Fr sheath was inserted into the Right Femoral artery 11:14:15 A Cordis 5Fr JL 4.0 Catheter (MP) was advanced over the wire and used for Left Coronary Angiography. 11:14:43 Versed 1 mg I.V. was administered by Kell Ang RN; for sedation; 11:14:47 Fentanyl 50 mcg I.V. was administered by Kell Agn RN; for sedation; 11:16:33 Catheter removed. 11:16:45 A Cordis 5Fr 3DRC Catheter (MP) was advanced over the wire and used for Procedure. 11:17:49 Catheter removed. 11:18:01 A Cordis 5Fr Pigtail Catheter (MP) was advanced over the wire and used for LV Angiography. 11:18:37 Fentanyl 100 mcg I.V. was administered by Kell Ang RN; for sedation; 11:18:51 EF : 15 % 11:19:23 LV hemodynamics recorded. 11:19:25 Catheter removed. 11:19:33 Cordis 5Fr Exoseal opened to sterile field. 11:20:56 Sheath removed intact; hemostasis achieved with Exoseal to the Right Femoral artery. 11:21:00 Procedure ended.(Physican Out) 11:21:13 Fluoroscopy time 01.10 minutes. 11:21:22 Flurop Dose total: 310 11:21:22 Fluoroscopy dose: 310 mGy 11:21:27 Contrast amount:Isovue 300 60ml. 11:21:29 Sharps counted by scrub and verified by R.N. 11:21:33 Insertion/operative site no bleeding no hematoma. 11:21:39 Post right femoral artery:stable 11:22:25 Post Procedure Pulses reassessed and unchanged 11:22:40 Post-procedure physical assessment completed. ASA score P 3 - A patient with severe systemic disease as per Danish Villalta MD. 11:22:52 Insertion/operative site no bleeding no hematoma. 11:23:09 Estimated blood loss: 10 ml 11:23:13 Post procedure instruction explained to patient.Patient verbalizes understanding. 11:23:16 Procedure and supply charges have been captured, reviewed, submitted and are correct. 11:23:37 Procedure Complication : No complications 11:23:41 Vital chart was stopped 11:23:42 See physician's report for complete and final results. 11:23:44 Report given to Pre/Post Procedure Room. 11:23:47 Patient transfered to Pre/Post Procedure Room with Bed. 11:23:50 Procedure ended. 11:23:50 Full Disclosure recording stopped Device Usage Item Name Manufacture Quantity Catalog Hospital Part Current Minimal Lo t# / Number Charge Number Stock Stock Serial# Code Acist Acist 1 24251 233502 729427 [id number] 20 Syringe Medical Systems Inc Bag Microtek 1 2002S 937576 84966 034168 5 Dec[employer]Ocean [employer]. Medline Cardinal 1 [id number] 664531 74244 473821 5 Cath Pack Health Terumo 5Fr Terumo 1 [id number] 680253 561082 144612 [address] St Thien 1 531976 802538 287565 748298 30 260cm J .035 wire Acist Hand Acist 1 34993 436675 007769 752065 5 Control Medical Systems Inc Acist Acist 1 50759 762086 706301 575943 5 Manifold Medical Systems Inc Diagnostic Cardinal 1 [id number] 936103 23617 918962 30 Infinity Health 5Fr Multipack catheter Tegaderm 4 3M 1 1626W 689401 559440 890203 5 x 4 Cordis 5Fr Cardinal 1 553449 5 JL 4.0 Health Catheter (MP) Cordis 5Fr Cardinal 1 922757 5 3DRC Health Catheter (MP) Cordis 5Fr Cardinal 1 900396 5 Pigtail Health Catheter (MP) Cordis 5Fr Cardinal 1 EX500 041881 328424 574468 10 [facility] IV Hospira 1 81905-60 132970 43905 993341 5 Extension Set Signature Audit Lily Stage Time Signature Unsigned Intra-Procedure 06/26/2016 Theresa Sutton 11:26:23 AM RT(R) Signatures Monitor : Latia Alvarado RT Signature : Date : Time : [address] [address]
[~2016-06-25 13:09] MED LIST changes: +COREG 3.1253.125 MG PO
[2016-06-25 13:36] LABS: BASOPHILS 0.3 % (0.0-2.0); EOSINOPHILS 2.7 % (0-7); HEMATOCRIT 41.5 % (42.0-54.0); HEMOGLOBIN 13.6 g/dL (13.5-17.5); IMMATURE GRANULOCYTES 0.3 % (0-5); LYMPHOCYTES 10.9 % (15-50); MCH 30.8 pg (26.0-34.0); MCHC 32.8 g/dL (31.0-37.0); MCV 94.1 fL (80.0-100.0); MEAN PLATELET VOLUME 9.5 fL (7.4-10.4); MONOCYTES 9.5 % (2-11); NEUTROPHILS 76.3 % (40-80); PLATELET COUNT 314 10x3/uL (130-400); RBC 4.41 10x6/uL (4.20-6.10); RDW 17.3 % (11.5-14.5); WBC 14.6 10x3/uL (4.8-10.8)
[2016-06-25 13:56] LABS: ALBUMIN 2.5 g/dL (3.4-5.0); ALKALINE PHOSPHATASE 175 U/L (46-116); ALT (SGPT) 9 U/L (10-68); CALC OSMOLALITY 272 mosm/kg (275-300); CALCIUM 9.1 mg/dL (8.5-10.1); CARBON DIOXIDE 23.4 mmol/L (21.0-32.0); CHLORIDE - SERUM 102 mmol/L (98-107); CREATININE - SERUM 1.4 mg/dL (0.6-1.3); GLUCOSE 107 mg/dL (74-106); POTASSIUM - SERUM 3.8 mmol/L (3.5-5.1); SODIUM 136 mmol/L (136-145); UREA NITROGEN 14 mg/dL (7-18); eGFR NON AFRICAN AMERICAN 55 mL/min (90-120)
[2016-06-25 14:11] LABS: CHOL - HDL RATIO 2.9 ratio (2.3-4.9); CHOLESTEROL, TOTAL 194 mg/dL (0-200); CKMB 1.4 U/L (0.0-3.6); CREATINE KINASE 51 UL (21-232); HDL CHOLESTEROL 67 mg/dL (32-96); LDL CHOLESTEROL 111 mg/dL (0-100); LDL-HDL RATIO 1.7 ratio (1.5-3.5); TRIGLYCERIDE 83 mg/dL (30-200)
[2016-06-25 14:14] LABS: TROPONIN-I 0.416 ng/mL (0.000-0.060)
[2016-06-25 16:08] LABS: UDS - AMPHET NEGATIVE QUAL (NEGATIVE); UDS - BARB NEGATIVE QUAL (NEGATIVE); UDS - BENZO NEGATIVE QUAL (NEGATIVE); UDS - COCAINE POSITIVE QUAL (NEGATIVE); UDS - METH NEGATIVE QUAL (NEGATIVE); UDS - OPIATE NEGATIVE QUAL (NEGATIVE); UDS - PCP NEGATIVE QUAL (NEGATIVE); UDS - THC NEGATIVE QUAL (NEGATIVE)
--- NOTE | 2016-06-25 21:21 | NUR ---
ADMIT TO ROOM 2120 FROM ER VIA WHEELCHAIR. ALERT/ORIENTED. ADMISSION HISTORY AND ASSESSMENT INITIATED. HOME MEDS REVIEWED. PLAN OF CARE ESTABLISHED AND REVIEWED WITH PATIENT. INSTRUCT ON NPO AFTER MIDNIGHT.
[2016-06-25 23:54] VITALS: BMI 20.2
[2016-06-26] VITALS: BP 110/67
--- NOTE | 2016-06-26 03:39 | NUR ---
PT AWAKE AND RECIEVED A PHONE CALL. DENIES PAIN OR DISCOMFORT. 80/SR PER TELEMETRY. CPOC. NPO UNTIL SEEN BY VIDEO TAPE TRANSFERRER.
[2016-06-26 04:00] VITALS: BP 100/58
[2016-06-26 08:25] VITALS: BP 104/65
[2016-06-26 08:46] LABS: ANION GAP 16.3 mmol/L (8-16); CALCIUM 8.9 mg/dL (8.5-10.1); CARBON DIOXIDE 22.8 mmol/L (21.0-32.0); CREATININE - SERUM 1.5 mg/dL (0.6-1.3); POTASSIUM - SERUM 4.1 mmol/L (3.5-5.1)
[2016-06-26 08:56] LABS: BASOPHILS 0.2 % (0.0-2.0); EOSINOPHILS 3.4 % (0-7); HEMATOCRIT 39.8 % (42.0-54.0); HEMOGLOBIN 12.8 g/dL (13.5-17.5); IMMATURE GRANULOCYTES 0.3 % (0-5); LYMPHOCYTES 12.4 % (15-50); MCH 30.7 pg (26.0-34.0); MCHC 32.2 g/dL (31.0-37.0); MCV 95.4 fL (80.0-100.0); MEAN PLATELET VOLUME 9.9 fL (7.4-10.4); MONOCYTES 7.7 % (2-11); PLATELET COUNT 311 10x3/uL (130-400); RBC 4.17 10x6/uL (4.20-6.10); RDW 17.9 % (11.5-14.5); WBC 14.9 10x3/uL (4.8-10.8)
[2016-06-26 09:44] VITALS: Ht 185.4 cm; Wt 69.4 kg
--- NOTE | 2016-06-26 09:49 | NUR ---
CONSENTS SIGNED FOR ACC[facility]. PRE-OPS GIVEN. WILL CONT. PLAN OF CARE.
--- NOTE | 2016-06-26 11:44 | NUR ---
BACK FROM RIBBON HAND. VS WNL. RIGHT GROIN STABLE WITHOUT BLEEDING OR HEMATOMA NOTED. WILL MONITOR.
[2016-06-26 12:28] VITALS: BP 96/62
--- NOTE | 2016-06-26 13:30 | NUR ---
BED REST UP. GROIN STABLE.
--- NOTE | 2016-06-26 14:18 | NUR ---
IV AND TELEMETRY DCD.. DC PLANS GIVEN. UNDERSTANDING VOICED. ESCORTED TO CAR BY W/C.
--- NOTE | 2016-06-29 13:10 | OP ---
PATIENT NAME: VIVIEN REYES SR MEDICAL RECORD: [id number] :57 LOCATION:D.M2 D.2120 ADMISSION DATE:06/25/16 SURGEON: AGATA GREEN MD DATE OF OPERATION: 06/26/2016 PROCEDURE: Left heart catheterization, selective coronary angiography, right femoral artery approach. CATHETERS: A 5-Pashto sheath, 5-4 left and right Georgette, 5/4 pig. The procedure was well tolerated and the patient was returned to the thompson, sheath removed. ExoSeal device placed. FINDINGS: Left ventriculography, 30-degree GARCIA view, severe global hypokinesis, reduced EF, estimated EF 15% to 20%. CORONARY ANATOMY: Left main: Left main is free of disease. LAD: LAD in the area of previous stenting is widely patent with RADHA runoff 3 distally. Circumflex: Minimal luminal irregularities. Right coronary artery: Area of previous intervention is widely patent. IMPRESSION: No evidence of stent thrombosis, restenosis, suspect vasospasm secondary to cocaine use. EF is severely decreased, currently on carvedilol, blood pressure too marginal for addition of SANAZ and/or ARB at this point. We will consider as this an outpatient. TRANSINT:[id number] Voice Confirmation ID: [id number] DOCUMENT ID: [id number] AGATA GREEN MD at 1310 CC: [id number] DICTATION DATE: 06/26/16 1125 MARINE DESIGNER: 06/26/162052 DIS IN 06/26/16 [id number] [place] [address]
--- NOTE | 2016-06-29 13:10 | HP ---
PATIENT: VIVIEN REYES MEDICAL RECORD: [id number] ACCOUNT: [id number] LOCATION:[address] : [birth year] ADMISSION DATE: 06/25/16 HISTORY AND PHYSICAL EXAMINATION HISTORY OF PRESENT ILLNESS: A 61-year-old gentleman with a known history of coronary artery disease, status post intervention. Unfortunately, he has a history of cocaine and alcohol abuse as well as ongoing smoking. He presented to the ER with chest pain, had lateral changes on his ECG and positive enzymes. His tox screen is positive for cocaine, he said this is the first he has used since his last intervention. We are asked to see him concerning his cardiovascular status. PAST MEDICAL HISTORY: Includes: 1. History of hypertension. 2. Coronary artery disease. 3. Ongoing tobacco use. 4. Ongoing illicit drug use. ALLERGIES: PENICILLIN. MEDICATIONS: Include Plavix 75 daily, Cardizem 120 daily, Coreg 3.125 daily, aspirin 81 daily, Singulair 10 q.h.s. SOCIAL HISTORY: Lives here in [place]. Smokes less than a pack a day, illicit drug use as described above as well as alcohol use. REVIEW OF SYSTEMS: The patient reports easy bruising but reports no swollen glands. The patient reports no fever, no night sweats, no significant weight gain, no significant weight loss. No significant exercise tolerance. The patient reports no dry eyes, no irritation, no vision change. Patient reports no difficulty hearing and no ear pain. Patient reports no frequent nose bleeds or nose and sinus problems. Patient reports on arm pain on exertion. No shortness of breath while lying down. No history of heart murmur. Patient reports no cough, no wheezing or coughing up blood. Patient reports no abdominal pain, no vomiting. Normal appetite. No diarrhea and not vomiting blood. No nausea and no constipation. Patient reports no incontinence. No difficulty urinating. No hematuria. No increased frequency. Patient reports no muscle aches. No weakness, no arthralgias, no back pain. No swelling of the extremities. Patient reports no abnormal mole, no jaundice, no rashes. Reports no loss of consciousness. No weakness and no numbness. No seizures, dizziness, or headaches. The patient reports no depression, no sleep disturbance, feeling safe in a relationship and no alcohol abuse. Patient reports on fatigue. Reports no runny nose or sinus pressure. No itching, no hives, and no frequent sneezing. PHYSICAL EXAMINATION: GENERAL: Pleasant gentleman in no acute distress. VITAL SIGNS: Blood pressure 100/58, pulse 90 and regular. HEENT: Normocephalic, atraumatic. NECK: No bruises are noted. HEART: Regular, II/ systolic ejection murmur. S4 gallop is noted. LUNGS: Fair air excursion. ABDOMEN: Soft, nontender. EXTREMITIES: Pulse is actually preserved, 2+ with no edema. HISTORY AND PHYSICAL [id number] VIVIEN REYES SR NEUROLOGIC: Grossly intact. DIAGNOSTIC DATA: ECG shows lateral ST-T changes. Cardiac enzymes are elevated with troponin of 2.2. IMPRESSION: Concern obviously for vasospasm versus acute thrombosis secondary to cocaine use. PLAN: For angiography, intervention based on the above. We will keep ____ to minimum given history of noncompliance in the past. TRANSINT:[id number] Voice Confirmation ID: [id number] DOCUMENT ID: [id number] AGATA GREEN MD at 1310 CC: [id number] DICTATION DATE: 06/26/16 0825 BOAT TESTER: 06/26/16 0953 DIS IN 06/26/16 [facility] [address] [place] [address]
== END 2016-06-26 18:04 | disposition home or self-care (01) ==
LOC: D.ER 13:09 → OBSVTIME 20:10 → D.M2 20:10
PROVIDERS: Emergency Medicine; ADMIT Internal Medicine Interventional Cardiology
DX: I25.111 Atherosclerotic heart disease of native coronary artery with angina pectoris with documented spasm (principal); Z95.5 Presence of coronary angioplasty implant and graft; Z72.0 Tobacco use; F14.90 Cocaine use, unspecified, uncomplicated; I10 Essential (primary) hypertension

== ENCOUNTER 2016-10-24 08:16 | Emergency (ER) | payer MEDICARE, MEDICAID ==
[2016-06-26 09:44] VITALS: BMI 20.1
== END 2016-10-24 12:00 | disposition home or self-care (01) ==
LOC: D.ER 08:16
DX: S22.42XA Multiple fractures of ribs, left side, initial encounter for closed fracture (principal); W10.9XXA Fall (on) (from) unspecified stairs and steps, initial encounter; Y93.89 Activity, other specified; Y92.019 Unspecified place in single-family (private) house as the place of occurrence of the external cause; F17.200 Nicotine dependence, unspecified, uncomplicated; K50.90 Crohn's disease, unspecified, without complications

== ENCOUNTER 2016-10-26 15:55 | Emergency (ER) | payer MEDICARE, MEDICAID ==
[2016-06-26 09:44] VITALS: BMI 20.1
== END 2016-10-26 19:30 | disposition home or self-care (01) ==
LOC: D.ER 15:55
DX: S22.32XS Fracture of one rib, left side, sequela (principal); X58.XXXS Exposure to other specified factors, sequela; F17.200 Nicotine dependence, unspecified, uncomplicated; R05 Cough

== ENCOUNTER 2017-02-26 11:06 | Inpatient (IN) | payer MEDICARE, MEDICAID ==
[~2017-02-26] VITALS: Ht 180.3 cm; Wt 76.2 kg
[2017-02-26 12:20] VITALS: BMI 23.4
[2017-02-26 12:44] LABS: BASOPHILS 0.2 % (0-2); EOSINOPHILS 1.3 % (0-7); HEMATOCRIT 37.9 % (42.0-54.0); HEMOGLOBIN 12.3 g/dL (13.5-17.5); IMMATURE GRANULOCYTES 0.4 % (0-5); LYMPHOCYTES 12.2 % (15-50); MCH 29.3 pg (26.0-34.0); MCHC 32.5 g/dL (31.0-37.0); MCV 90.2 fL (80.0-100.0); MEAN PLATELET VOLUME 10.2 fL (7.4-10.4); MONOCYTES 7.8 % (2-11); NEUTROPHILS 78.1 % (40-80); PLATELET COUNT 305 10x3/uL (130-400); WBC 13.4 10x3/uL (4.8-10.8)
[2017-02-26 13:03] VITALS: BP 132/82
[2017-02-26 16:05] VITALS: BP 142/76
[2017-02-26 20:00] VITALS: BP 118/70
[2017-02-27] VITALS: BP 110/76
[2017-02-27 04:00] VITALS: BP 146/94
--- NOTE | 2017-02-27 07:47 | NUR ---
PATIENT RESTING QUIETLY IN BED. EYES ARE CLOSED. PATIENT AWAKENS EASILY TO VERBAL STIMULI. PATIENT DENIES ANY NEEDS AT PRESENT TIME. CALL LIGHT IN PATIENT'S REACH. WILL MONITOR PATIENT.
[2017-02-27 10:52] VITALS: BP 152/99
--- NOTE | 2017-02-27 12:40 | NUR ---
PATIENT SITTING UP ON THE SIDE OF HIS BED. PATIENT REQUESTS TO SIT UP IN A CHAIR. A CHAIR PROVIDED FOR PATIENT AT HIS BEDSIDE. PATIENT TRANSFERRED TO THE CHAIR WITHOUT ANY PROBLEMS NOTED. CALL LIGHT IN PATIENT'S REACH. WILL MONITOR PATIENT.
[2017-02-27 12:53] VITALS: BP 132/83
[2017-02-27 13:39] LABS: BASOPHILS 0.3 % (0-2); EOSINOPHILS 1.3 % (0-7); HEMATOCRIT 39.7 % (42.0-54.0); HEMOGLOBIN 12.8 g/dL (13.5-17.5); IMMATURE GRANULOCYTES 0.4 % (0-5); LYMPHOCYTES 13.2 % (15-50); MCH 29.2 pg (26.0-34.0); MCHC 32.2 g/dL (31.0-37.0); MCV 90.6 fL (80.0-100.0); MEAN PLATELET VOLUME 9.7 fL (7.4-10.4); MONOCYTES 7.4 % (2-11); NEUTROPHILS 77.4 % (40-80); PLATELET COUNT 277 10x3/uL (130-400); RBC 4.38 10x6/uL (4.20-6.10); WBC 12.8 10x3/uL (4.8-10.8)
[2017-02-27 14:10] LABS: ALBUMIN 2.1 g/dL (3.4-5.0); ANION GAP 16.3 mmol/L (8-16); BILIRUBIN - TOTAL 0.81 mg/dL (0.2-1.3); CALCIUM 8.4 mg/dL (8.5-10.1); CARBON DIOXIDE 23.2 mmol/L (21.0-32.0); CREATININE - SERUM 1.7 mg/dL (0.6-1.3); POTASSIUM - SERUM 4.5 mmol/L (3.5-5.1); PROTEIN - SERUM 7.1 g/dL (6.4-8.2)
[2017-02-27 20:00] VITALS: BP 117/70
--- NOTE | 2017-02-27 20:35 | NUR ---
PATIENT RESTING IN BED COMPLAINING HE CAN'T BREATH. CHECKED PATIENT'S 02 AND IT WAS 98%. INSTRUCTED PATIENT ON DEEP BREATHING. PATIENT APPEARS TO HAVE CALMED DOWN AND HAS NO VISIBLE SIGNS OF DISTRESS. ADMINISTERED MEDS PER ORDERS. BED IN LOWEST POSITION AND CALL LIGHT WITHIN REACH. ENCOURAGED THE PATIENT TO CALL IF HE HAS NEEDS.
[2017-02-28] VITALS: BP 122/77
[2017-02-28 04:00] VITALS: BP 115/67
[2017-02-28 05:46] LABS: BASOPHILS 0.2 % (0-2); EOSINOPHILS 0.2 % (0-7); HEMATOCRIT 37.9 % (42.0-54.0); HEMOGLOBIN 12.2 g/dL (13.5-17.5); IMMATURE GRANULOCYTES 0.3 % (0-5); LYMPHOCYTES 12.4 % (15-50); MCH 28.9 pg (26.0-34.0); MCHC 32.2 g/dL (31.0-37.0); MCV 89.8 fL (80.0-100.0); MEAN PLATELET VOLUME 10.4 fL (7.4-10.4); MONOCYTES 9.3 % (2-11); NEUTROPHILS 77.6 % (40-80); PLATELET COUNT 295 10x3/uL (130-400); RBC 4.22 10x6/uL (4.20-6.10); RDW 17.9 % (11.5-14.5); WBC 12.6 10x3/uL (4.8-10.8)
[2017-02-28 06:16] LABS: ALBUMIN 2.1 g/dL (3.4-5.0); ANION GAP 15.4 mmol/L (8-16); BILIRUBIN - TOTAL 0.8 mg/dL (0.2-1.3); CALCIUM 8.8 mg/dL (8.5-10.1); CARBON DIOXIDE 21.3 mmol/L (21.0-32.0); CREATININE - SERUM 1.8 mg/dL (0.6-1.3); POTASSIUM - SERUM 4.7 mmol/L (3.5-5.1); PROTEIN - SERUM 6.9 g/dL (6.4-8.2)
--- NOTE | 2017-02-28 07:14 | NUR ---
PATIENT RESTING QUIETLY WITH EYES CLOSED. NO S/S OF DISTRESS NOTED. CALL LIGTH IN PATIENT'S REACH. WILL MONITOR PATIENT.
[2017-02-28 13:32] VITALS: BP 132/92
--- NOTE | 2017-02-28 13:46 | NUR ---
PATIENT RESTING ON HIS RIGHT SIDE. EYES ARE CLOSED. RESPIRATIONS ARE EVEN AND UNLABORED. CALL LIGHT IN PATIENT'S REACH. WILL MONITOR PATIENT.
[2017-02-28 20:00] VITALS: BP 124/75
[2017-03-01] VITALS: BP 106/77
[2017-03-01 04:00] VITALS: BP 139/92
[2017-03-01 06:37] LABS: BASOPHILS 0 % (0-2); EOSINOPHILS 0 % (0-7); HEMATOCRIT 37.8 % (42.0-54.0); HEMOGLOBIN 12.3 g/dL (13.5-17.5); IMMATURE GRANULOCYTES 0.4 % (0-5); LYMPHOCYTES 6.4 % (15-50); MCH 29.1 pg (26.0-34.0); MCHC 32.5 g/dL (31.0-37.0); MCV 89.4 fL (80.0-100.0); MEAN PLATELET VOLUME 10.7 fL (7.4-10.4); MONOCYTES 2.9 % (2-11); NEUTROPHILS 90.3 % (40-80); PLATELET COUNT 282 10x3/uL (130-400); RBC 4.23 10x6/uL (4.20-6.10); RDW 17.6 % (11.5-14.5); WBC 12.1 10x3/uL (4.8-10.8)
[2017-03-01 07:05] LABS: ALBUMIN 2.2 g/dL (3.4-5.0); ANION GAP 20.4 mmol/L (8-16); BILIRUBIN - TOTAL 0.58 mg/dL (0.2-1.3); CALCIUM 8.7 mg/dL (8.5-10.1); CARBON DIOXIDE 19.7 mmol/L (21.0-32.0); CREATININE - SERUM 1.9 mg/dL (0.6-1.3); POTASSIUM - SERUM 5.1 mmol/L (3.5-5.1); PROTEIN - SERUM 7.1 g/dL (6.4-8.2)
[2017-03-01 09:33] VITALS: BP 118/79
[2017-03-01 13:03] VITALS: BP 124/95
--- NOTE | 2017-03-01 14:04 | NUR ---
PATIENT SLEEPING QUIETLY IN BED.
[2017-03-01 16:32] VITALS: BP 122/76
[2017-03-01 20:00] VITALS: BP 126/79
[2017-03-02 04:00] VITALS: BP 101/94
[2017-03-02 05:41] LABS: BASOPHILS 0.1 % (0-2); EOSINOPHILS 0 % (0-7); HEMATOCRIT 36.6 % (42.0-54.0); IMMATURE GRANULOCYTES 0.4 % (0-5); LYMPHOCYTES 6.8 % (15-50); MCH 29.1 pg (26.0-34.0); MCHC 32.8 g/dL (31.0-37.0); MCV 88.6 fL (80.0-100.0); MEAN PLATELET VOLUME 10.8 fL (7.4-10.4); MONOCYTES 8.1 % (2-11); NEUTROPHILS 84.6 % (40-80); PLATELET COUNT 265 10x3/uL (130-400); RBC 4.13 10x6/uL (4.20-6.10); RDW 17.4 % (11.5-14.5)
[2017-03-02 06:16] LABS: WBC 18.1 10x3/uL (4.8-10.8)
[2017-03-02 06:26] LABS: ALBUMIN 2.1 g/dL (3.4-5.0); ANION GAP 16.9 mmol/L (8-16); BILIRUBIN - TOTAL 0.61 mg/dL (0.2-1.3); CALCIUM 8.5 mg/dL (8.5-10.1); CARBON DIOXIDE 19.3 mmol/L (21.0-32.0); CREATININE - SERUM 2.1 mg/dL (0.6-1.3); POTASSIUM - SERUM 5.2 mmol/L (3.5-5.1); PROTEIN - SERUM 6.6 g/dL (6.4-8.2)
[2017-03-02 07:55] VITALS: BP 128/83
--- NOTE | 2017-03-02 09:37 | NUR ---
AWAKE AND ALERT. ORIENTED X3. NO C/O THIS AM. LUNGS HAVE CRACKLES THROUGHOUT LUNG HOUSER, OCCASSIONAL DRY COUGH NOTED. SKIN IS INTACT WITHOUT REDNESS. IV TO LEFT FOREARM IS PATENT WITHOUT REDNESS AT INSERTION SITE. BREAKFAST AT BEDSIDE. NOT EATING AT THIS TIME. WILL MONITOR.
--- NOTE | 2017-03-02 10:00 | NUR ---
REFUSED TO EAT ANY OF BREAKFAST. DENIES NEEDS AT THIS TIME.
[2017-03-02 12:24] VITALS: BP 138/75
--- NOTE | 2017-03-02 12:30 | NUR ---
SITTING UP ON SIDE OF BED EATING LUNCH. DENIES NEEDS.
[2017-03-02 15:34] VITALS: BP 131/83
[2017-03-02 15:49] VITALS: BMI 23.4
--- NOTE | 2017-03-02 17:01 | NUR ---
OT NOTE: PT COMPLETED BED MOB AND STANDING BALANCE WITH CGA/SBA. THANK YOU, IRIS PENALOZA/Negar
--- NOTE | 2017-03-02 18:29 | NUR ---
RESTING QUIETLY IN BED. DENIES NEEDS. NO CHANGES NOTED.
[2017-03-02 20:49] VITALS: BP 121/88
[2017-03-02 23:44] VITALS: BP 119/79
[2017-03-03 04:24] VITALS: BP 129/78
[2017-03-03 06:18] LABS: BASOPHILS 0 % (0-2); EOSINOPHILS 0 % (0-7); HEMATOCRIT 37.2 % (42.0-54.0); HEMOGLOBIN 12.2 g/dL (13.5-17.5); IMMATURE GRANULOCYTES 0.3 % (0-5); MCHC 32.8 g/dL (31.0-37.0); MCV 88.4 fL (80.0-100.0); MEAN PLATELET VOLUME 10.7 fL (7.4-10.4); MONOCYTES 6.3 % (2-11); NEUTROPHILS 88.4 % (40-80); PLATELET COUNT 234 10x3/uL (130-400); RBC 4.21 10x6/uL (4.20-6.10); RDW 17.8 % (11.5-14.5); WBC 15.2 10x3/uL (4.8-10.8)
[2017-03-03 06:48] LABS: ALBUMIN 2.1 g/dL (3.4-5.0); ANION GAP 15.7 mmol/L (8-16); BILIRUBIN - TOTAL 0.54 mg/dL (0.2-1.3); CARBON DIOXIDE 19.1 mmol/L (21.0-32.0); POTASSIUM - SERUM 4.8 mmol/L (3.5-5.1); PROTEIN - SERUM 6.8 g/dL (6.4-8.2)
--- NOTE | 2017-03-03 08:00 | NUR ---
ASSESSMENT PPER FLOW SHEET.PT WITHOUT DISTRESS.DENIES NEEDS.CALL LIGHT IN REACH
[2017-03-03 08:20] VITALS: BP 126/87
--- NOTE | 2017-03-03 10:59 | NUR ---
Patient Name: VIVIEN REYES Admission Status: Urgent Accout number: [id number] Admission Date: 02-26-2017 : 1955 Admission Diagnosis:PNEUMONIA, UNSPECIFIED ORGANISM Attending: RAFAEL, Current LOS: 5 Anticipated DC Date: 03-05-2017 Planned Disposition: Home Primary Insurance: [facility] Discharge Planning Comments: CM MET WITH PATIENT REGARDING D/C NEEDS AND PLANS. PATIENT STATED HE LIVES ALONE BUT HIS FAMILY CHECKS ON HIM DAILY. PATIENT HAS 3 STEPS TO ENTER HOME AND NO STAIRS ONCE INSIDE. PATIENT STATED HE IS INDEPENDENT WITH HIS CARE AND HAS OXYGEN, PORTABLE O2, AND A NEBULIZER AT HOME. PATIENTS PCP IS DR. HALL AND PHARMACY IS [facility]. PATIENT STATED HE HAS [facility]ARE [facility] THAT HELPS HIM IF NEEDED. PATIENT DENIED NEEDS FOR HOME HEALTH AT THIS TIME. CM WILL CONTINUE TO FOLLOW PATIENT WITH D/C NEEDS AND PLANS. PCP DR. HALL [facility]- [phone] CHELSEY (SISTER) [phone] ALESIA (FRIEND) [phone] Reel System Operator: Sybil Freedman Is the patient Alert and Oriented? Yes 0 * How many steps to enter\exit or inside your home? 3 0 * PCP DR. HALL 0 * Pharm[place] 0 * Preadmission Environment Home Alone 0 * ADLs Independent 0 * Equipment Nebulizer Oxygen 0 * Other Equipment PORTABLE O2 0 * List name and contact numbers for known caregivers / representatives who currently or will assist patient after discharge: CHELSEY (SISTER) [phone] ALESIA (FRIEND) [phone] 0 * Community resources currently utilized Other 0 * Please name any agencies selected above. [facility] 0 * Additional services required to return to the preadmission environment? Yes 0 * Can the patient safely return to the preadmission environment? Yes 0 * Has this patient been hospitalized within the prior 30 days at any hospital? No 0 Grand Total: 0
[2017-03-03 12:17] VITALS: BP 132/83
--- NOTE | 2017-03-03 13:30 | NUR ---
CALL FROM FAMILY.PASSWORD SET UP WITH PATIENT.MONITOR
--- NOTE | 2017-03-03 14:28 | NUR ---
OT NOTE: PERFORMED BED MOB INDEPENDENTLY; TRANSFER TRAINING WITH SBA; AMB AROUND BED WITH SBA. PT REPORTS THAT HES WAITING FOR STEP SON TO BRING HIM SOMETHING. RUBENS KAY, OTR/L
--- NOTE | 2017-03-03 14:32 | NUR ---
BROUGHT PT TO X-RAY FOR CHEST X-RAY AND NOTICED PT IV LEAKING ON FLOOR. QUESTIONED PT AND HE SAID IT HAD BEEN LEAKING. WHEN TOOK PT BACK TO FLOOR, LET NURSE KALPANA KNOW.EMILIANA
--- NOTE | 2017-03-03 20:51 | NUR ---
OT NOTE: PT COMPLETED BED MOB WITH SPV. PT COMPLETED BUE AROM AXS FOR INCREASED AX TOLERANCE. THANK YOU, IRIS PENALOZA/Negar
[2017-03-03 21:03] VITALS: BP 118/73
[2017-03-04 00:37] VITALS: BP 132/82
--- NOTE | 2017-03-04 02:00 | NUR ---
PATIENT IS AWAKE AND ALERT, REQUESTING TO TAKE A SHOWER, WEB MASTER IN ROOM GETTING PATIENT READY FOR A SHOWER.
[2017-03-04 05:00] VITALS: BP 138/72
[2017-03-04 06:25] LABS: BASOPHILS 0 % (0-2); EOSINOPHILS 0 % (0-7); HEMATOCRIT 36.5 % (42.0-54.0); HEMOGLOBIN 11.9 g/dL (13.5-17.5); IMMATURE GRANULOCYTES 0.4 % (0-5); LYMPHOCYTES 6.1 % (15-50); MCH 28.6 pg (26.0-34.0); MCHC 32.6 g/dL (31.0-37.0); MCV 87.7 fL (80.0-100.0); MEAN PLATELET VOLUME 10.6 fL (7.4-10.4); MONOCYTES 3.3 % (2-11); NEUTROPHILS 90.2 % (40-80); PLATELET COUNT 223 10x3/uL (130-400); RBC 4.16 10x6/uL (4.20-6.10); RDW 17.5 % (11.5-14.5); WBC 13.7 10x3/uL (4.8-10.8)
[2017-03-04 07:01] LABS: ALBUMIN 2.2 g/dL (3.4-5.0); ANION GAP 15.4 mmol/L (8-16); BILIRUBIN - TOTAL 0.56 mg/dL (0.2-1.3); CALCIUM 7.8 mg/dL (8.5-10.1); CARBON DIOXIDE 16.9 mmol/L (21.0-32.0); CREATININE - SERUM 1.7 mg/dL (0.6-1.3); POTASSIUM - SERUM 4.3 mmol/L (3.5-5.1); PROTEIN - SERUM 6.5 g/dL (6.4-8.2)
[2017-03-04 08:22] VITALS: BP 135/79
--- NOTE | 2017-03-04 13:15 | NUR ---
OT NOTE: PT INITALLY ASLEEP; EASILY AROUSED. SPEECH UNINTELLIGABLE; ABLE TO PERFORM BED MOB AND IN ROOM AMB WITH SBA..SOB NOTED ONLY WHEN HE RETURNED TO BED. PT WANTING TO GO HOME. RUBENS KAY, OTR/L
--- NOTE | 2017-03-04 15:24 | NUR ---
NUTRITION F/U CHART REVIEWED. PT TOLERATING REG DIET, 75% INTAKE RECENT MEALS. WILL CONTINUE TO PROVIDE DIET, HONOR FOOD PREFERENCES. RD FOLLOWING
[2017-03-04 16:19] VITALS: BP 105/69
[2017-03-04 19:04] VITALS: Ht 180.3 cm; Wt 76.2 kg
--- NOTE | 2017-03-04 19:49 | NUR ---
PATIENT INFORMED OF NEEDING TO GET A URINE SAMPLE. URINE CUP GIVEN WITH INSTRUCTIONS TO CALL NURSE AFTER SAMPLE IS PROVIDED.
[2017-03-04 20:00] VITALS: BP 117/73
[2017-03-04 20:14] LABS: ERYTHROCYTE SEDIMENTATION RATE 2 mm/hr (0-20)
[2017-03-04 21:27] LABS: APPEARANCE CLEAR (CLEAR); BILIRUBIN NEGATIVE (NEGATIVE); COLOR YELLOW (YELLOW); GLUCOSE NEGATIVE (NEGATIVE); KETONE NEGATIVE (NEGATIVE); NITRITE NEGATIVE (NEGATIVE); PROTEIN 2+ mg/dL (NEGATIVE); UROBILINOGEN NORMAL (NORMAL)
[2017-03-04 21:29] LABS: BACTERIA FEW /hpf (NONE SEEN); EPITHELIAL CELLS 0-5 /hpf (0-5); GRANULAR CAST OCC /lpf (NONE SEEN); HYALINE CAST RARE /lpf (NONE SEEN); MUCUS <1+ /lpf (NONE SEEN); RED CELLS - URINE 25-50 /hpf (0-5); WHITE CELLS - URINE 0-5 /hpf (0-5); YEAST <1+ /hpf (NONE SEEN)
[2017-03-04 21:30] LABS: CREATININE - URINE 79.1 mg/dL (30-125); PROTEIN - URINE 161.6 mg/dL (0.0-11.9)
[2017-03-05] VITALS: BP 134/79
[2017-03-05 04:00] VITALS: BP 116/81
--- NOTE | 2017-03-05 05:38 | NUR ---
ASSESSED, PT IS UP TO THE BATHROOM TO HAVE A BM AND HAS HIS O2 HE IS UP. THE BED IS LOW, RAILS UP X'S 2 WITH THE CALL LIGHT AT HAND.
[2017-03-05 06:31] LABS: BASOPHILS 0 % (0-2); EOSINOPHILS 0 % (0-7); HEMOGLOBIN 11.7 g/dL (13.5-17.5); IMMATURE GRANULOCYTES 0.3 % (0-5); LYMPHOCYTES 7.4 % (15-50); MCH 28.5 pg (26.0-34.0); MCHC 32.5 g/dL (31.0-37.0); MCV 87.8 fL (80.0-100.0); MONOCYTES 2.3 % (2-11); PLATELET COUNT 204 10x3/uL (130-400); RDW 17.6 % (11.5-14.5); WBC 12.4 10x3/uL (4.8-10.8)
[2017-03-05 06:56] LABS: ALBUMIN 2.2 g/dL (3.4-5.0); ANION GAP 13.3 mmol/L (8-16); BILIRUBIN - TOTAL 0.49 mg/dL (0.2-1.3); CALCIUM 8.1 mg/dL (8.5-10.1); CARBON DIOXIDE 17.8 mmol/L (21.0-32.0); CREATININE - SERUM 1.6 mg/dL (0.6-1.3); POTASSIUM - SERUM 4.1 mmol/L (3.5-5.1); PROTEIN - SERUM 6.4 g/dL (6.4-8.2)
[2017-03-05 08:18] VITALS: BP 136/98
[2017-03-05 11:40] VITALS: BP 145/84
[2017-03-05] MEDS ORDERED: VITAMIN B-1100 M1 PO (14:58)
[2017-03-05] MEDS ORDERED: FLORAJEN3 CAPS460 MG PO (14:58)
[2017-03-05] MEDS ORDERED: FOLIC ACID1 MG PO (14:58)
[2017-03-05] MEDS ORDERED: MUCINEX600 MG PO (14:58)
[2017-03-05] MEDS ORDERED: DOXYCYCLINE HY100 M2 PO (14:58)
[2017-03-05] MEDS ORDERED: PREDNISONE10 MG PO (14:58)
[2017-03-05] MEDS ORDERED: CEFUROXIME250 MG PO (14:58)
[2017-03-05] MEDS ORDERED: SODIUM BICARBO650 MG PO ×2 (14:58→16:01)
--- NOTE | 2017-03-05 16:24 | NUR ---
CM REASSESSMENT NOTE: PATIENT IS DISCHARGING HOME TODAY/REFUSED HOME HEALTH. PASSED THE O2 WALK TEST SAT 96%. PATIENTS FRIEND IS PICKING HIM UP AT DISCHARGE.
--- NOTE | 2017-03-05 18:56 | NUR ---
OT NOTE: PT COMPLETED BED MOB AND SITTING BALANCE WITH SPV. PT COMPLETED GROOMING WITH SET UP. THANK YOU, IRIS PENALOZA/Negar
[2017-03-09 07:25] LABS: SPE - A/G RATIO 0.7 (0.7-1.7); SPE - ALBUMIN 2.5 g/dL (2.9-4.4); SPE - ALPHA-1 GLOBULIN 0.3 g/dL (0.0-0.4); SPE - ALPHA-2 GLOBULIN 0.8 g/dL (0.4-1.0); SPE - BETA GLOBULIN 1.3 g/dL (0.7-1.3); SPE - GAMMA GLOBULIN 1.2 g/dL (0.4-1.8); SPE - M-SPIKE Not Observed g/dL (Not Observed); SPE - TOTAL PROTEIN 6.1 g/dL (6.0-8.5)
[2017-03-09 08:17] LABS: UPE RAND - ALBUMIN 48.6 % (()); UPE RAND - ALPHA 1 GLOBULIN 8.4 % (()); UPE RAND - ALPHA 2 GLOBULIN 7.7 % (()); UPE RAND - BETA GLOBULIN 15.6 % (()); UPE RAND - GAMMA GLOBULIN 19.7 % (())
[2017-03-14 16:07] LABS: AEROBE ID Final report (()); RESULT 1 Pantoea species (())
--- NOTE | 2017-03-18 14:06 | CN ---
PATIENT NAME:VIVIEN REYES SR MEDICAL RECORD: [id number] : 57 LOCATION:D.MS Ny2240 ADMIT DATE: 02/26/17 ACCOUNT: [id number] CONSULTING PHYSICIAN: MALENA RENAE MD REFERRING PHYSICIAN: KINJAL HALL MD DATE OF CONSULTATION: 03/02/2017 Pulmonary Consultation CONSULT REQUESTING PHYSICIAN: Edwin Wilson MD REASON FOR CONSULTATION: Bilateral pneumonia. HISTORY OF PRESENT ILLNESS: Mr. Reyes is a 61-year-old -[place] gentleman who was admitted on with bilateral lower lobe pneumonia. The patient still has bilateral infiltrate and significant leukocytosis. Currently, his cough with very little sputum production. He does have a fever that has been resolved, now denies any chest pain. REVIEW OF SYSTEMS: Mainly in the history of present illness. PAST MEDICAL HISTORY: 1. Coronary artery disease. 2. History of myocardial infarction. 3. Hypertension. 4. Hyperlipidemia. 5. Gastroesophageal reflux disease. 6. History of Crohn disease. 7. BPH. 8. Chronic insomnia. PAST SURGICAL HISTORY: Cardiac catheterization and stent placement. ALLERGIES: HE IS ALLERGIC TO PENICILLIN. PRESENT MEDICATIONS: On Narrative, reviewed. PERSONAL AND SOCIAL HISTORY: He is a smoker. He is also a drinker. FAMILY HISTORY: Noncontributory. PHYSICAL EXAMINATION: GENERAL: Now, the patient is lying comfortably. He is not in acute distress. VITAL SIGNS: The blood pressure is 131/83, pulse is 85, respiration is 19, temperature is 97.7, SpO2 is 97% on nasal cannula oxygen. HEENT: Conjunctivae are pink. Sclerae nonicteric. NECK: Supple, no JVD. CHEST: Excursion is minimal on both sides. There are bibasilar crackles. No wheezing. HEART: Rhythm regular, normal sound, no murmur. ABDOMEN: Soft, bowel sounds present. No hepatosplenomegaly. RECTAL: Deferred. EXTREMITIES: No cyanosis, no clubbing, no pedal edema. SKIN: Warm, normal turgor. CENTRAL NERVOUS SYSTEM: The patient is awake and alert. There are no obvious CONSULT REPORT [id number] VIVIEN REYES SR cranial nerve abnormalities. The gait was not tested. DIAGNOSTIC STUDIES: Chest radiograph, there are bibasilar infiltrate. OTHER LABORATORY DATA: CBC: WBC 18.1, hemoglobin 12, hematocrit is 36.6, platelet count is 265. Chemistry: Sodium is 136, potassium 5.2, BUN is 52, creatinine is 2.1. IMPRESSION: 1. Acute hypoxic respiratory failure. 2. Bilateral lower lobe pneumonia, most likely community-acquired pneumonia, possible aspiration secondary to gastroesophageal reflux disease. 3. Leukocytosis. 4. Hypertension. 5. Vouvs-qw-ifktlhq kidney disease. 6. Coronary artery disease. RECOMMENDATIONS: 1. Continue Levaquin. I will add doxycycline and cefepime. 2. Follow up labs and chest radiograph. 3. Check sputum culture. 4. I will hold on the bronchoscopy as the patient is on Plavix and aspirin. Dr. Wilson, thank you for involving me in the care of Mr. Reyes. TRANSINT:[id number] Voice Confirmation ID: [id number] DOCUMENT ID: [id number] MALENA RENAE MD at 1406 CC: EDWIN WILSON MD [id number] DICTATION DATE: 03/02/17 160 AGRICULTURE SALES ACCOUNT MANAGER: 03/02/171933 DIS IN 03/05/17 [facility] [address] [place] [address]
== END 2017-03-05 17:27 | disposition home or self-care (01) | DRG 177 ==
LOC: D.MS 11:06 → UNDOADMIN 11:06 → D.SDCHOLD 11:06 → D.MS 03-05 17:27
PROVIDERS: Family Medicine; Internal Medicine Nephrology; Internal Medicine Pulmonary Disease; ADMIT Family Medicine
DX: J15.6 Pneumonia due to other Gram-negative bacteria (principal); J96.01 Acute respiratory failure with hypoxia; K50.90 Crohn's disease, unspecified, without complications; E87.1 Hypo-osmolality and hyponatremia; E87.2 Acidosis; I13.0 Hypertensive heart and chronic kidney disease with heart failure and stage 1 through stage 4 chronic kidney disease, or unspecified chronic kidney disease; I50.22 Chronic systolic (congestive) heart failure; K61.1 Rectal abscess; N17.9 Acute kidney failure, unspecified; J69.0 Pneumonitis due to inhalation of food and vomit; I73.9 Peripheral vascular disease, unspecified; F14.10 Cocaine abuse, uncomplicated; F17.200 Nicotine dependence, unspecified, uncomplicated; J20.9 Acute bronchitis, unspecified; I27.20 Pulmonary hypertension, unspecified; N18.3 Chronic kidney disease, stage 3 (moderate)

== ENCOUNTER 2017-04-04 13:42 | Inpatient (IN) | payer MEDICARE, MEDICAID ==
[~2017-04-04] VITALS: Ht 185.4 cm; Wt 66.5 kg
--- NOTE | ~2017-04-04 | OP ---
PATIENT NAME: VIVIEN REYES SR MEDICAL RECORD: [id number] :57 LOCATION:D.M2 D.2123 ADMISSION DATE:04/05/17 SURGEON: FABY VALENZUELA MD DATE OF OPERATION: 04/12/2017 SURGEON: Faby Valenzuela MD PREOPERATIVE DIAGNOSES: 1. Perirectal abscess. 2. Complex perirectal abscess. PROCEDURE PERFORMED: 1. Rectal biopsy. 2. Incision and drainage of perirectal abscess. 3. Seton placement. ANESTHESIA: General. COMPLICATIONS: None. SPECIMENS: 1. Rectal biopsy. 2. Tissue culture. 3. Fluid cultures. COMPLICATIONS: None. Case was grossly contaminated. OPERATIVE COURSE: After consent was obtained, the patient was taken to the operating room and placed in the supine position on the operating table. Next, general anesthesia was given via endotracheal intubation after a timeout was performed to confirm the correct patient and procedure. The patient was then placed into the lithotomy position. The rectum was prepped and draped in typical sterile fashion. Digital rectal exam was performed. The patient has fistula tracts too numerous to count. There was active drainage from greater than 30 open fistula tracts. The patient had severely indurated tissue circumferentially around the rectum. The rectum was dilated with Miles-Hill retractors. Rectal biopsies were obtained. The area of greatest fluctuance was opened in the left anterior position. A Richmond drain was placed in the skin incision site anteriorly through a fistula opening and posteriorly it was fashioned in a cutting Seton way. The Seton was secured with 2-0 silk suture. Tissue culture was sent for Gram stain. The fluid cultures were sent for Gram stain as well as rectal biopsies. At this time, the case was terminated. At the end of the case, all needle and instrument counts were correct. No complications occurred. The patient was extubated and transferred to the PACU in stable condition. TRANSINT:[id number] Voice Confirmation ID: [id number] DOCUMENT ID: [id number] OPERATIVE REPORT [id number] VIVIEN REYES FABY HA SR, MD at 2234 CC: [id number] DICTATION DATE: 04/12/17 1038 CERTIFIED TECHNICIAN: 04/12/17 1126 ADM IN [place] [address] [place] [address]
[~2017-04-04 13:42] MED LIST changes: +CEFUROXIME250 MG PO; +DOXYCYCLINE HY100 M2 PO; +FLORAJEN3 CAPS460 MG PO; +FOLIC ACID1 MG PO; +MUCINEX600 MG PO; +PREDNISONE10 MG PO; +SODIUM BICARBO650 MG PO; +VITAMIN B-1100 M1 PO
[2017-04-04 14:50] LABS: BASOPHILS 0.2 % (0-2); EOSINOPHILS 1.2 % (0-7); HEMATOCRIT 40.1 % (42.0-54.0); HEMOGLOBIN 13.1 g/dL (13.5-17.5); IMMATURE GRANULOCYTES 0.4 % (0-5); LYMPHOCYTES 14.8 % (15-50); MCH 29.6 pg (26.0-34.0); MCHC 32.7 g/dL (31.0-37.0); MCV 90.5 fL (80.0-100.0); MEAN PLATELET VOLUME 10.7 fL (7.4-10.4); MONOCYTES 10.6 % (2-11); NEUTROPHILS 72.8 % (40-80); PLATELET COUNT 239 10x3/uL (130-400); RBC 4.43 10x6/uL (4.20-6.10); RDW 20.1 % (11.5-14.5); WBC 10.5 10x3/uL (4.8-10.8)
[2017-04-04 15:12] LABS: ALBUMIN 2.6 g/dL (3.4-5.0); ANION GAP 16.2 mmol/L (8-16); BILIRUBIN - TOTAL 0.81 mg/dL (0.2-1.3); CALCIUM 9.3 mg/dL (8.5-10.1); CARBON DIOXIDE 24.6 mmol/L (21.0-32.0); CREATININE - SERUM 1.4 mg/dL (0.6-1.3); POTASSIUM - SERUM 4.8 mmol/L (3.5-5.1); PROTEIN - SERUM 7.1 g/dL (6.4-8.2)
[2017-04-04 16:14] LABS: MAGNESIUM - SERUM 2.6 mg/dL (1.8-2.4)
[2017-04-04 16:18] LABS: TROPONIN-I 0.311 ng/mL (0.000-0.060)
[2017-04-04 16:27] LABS: INR 1.26 (0.85-1.17); PROTIME 15.3 SECONDS (11.6-15.0)
[2017-04-04 20:07] VITALS: BP 125/98; BMI 23.8
[2017-04-05] VITALS: BP 132/88
[2017-04-05 04:00] VITALS: BP 116/78
[2017-04-05 07:00] VITALS: BP 140/96
[2017-04-05 12:48] VITALS: BP 124/80
[2017-04-05 13:47] VITALS: Ht 185.4 cm; Wt 66.5 kg
[2017-04-05 16:32] VITALS: BP 97/55
[2017-04-05 21:30] VITALS: BP 106/63
[2017-04-06 06:11] VITALS: BP 112/60
[2017-04-06 06:38] LABS: HEMATOCRIT 36.9 % (42.0-54.0); HEMOGLOBIN 11.8 g/dL (13.5-17.5); MCH 28.6 pg (26.0-34.0); MCV 89.3 fL (80.0-100.0); MEAN PLATELET VOLUME 9.6 fL (7.4-10.4); PLATELET COUNT 221 10x3/uL (130-400); RBC 4.13 10x6/uL (4.20-6.10); RDW 20.1 % (11.5-14.5); WBC 10.7 10x3/uL (4.8-10.8)
[2017-04-06 06:47] LABS: ANION GAP 12.3 mmol/L (8-16); CALCIUM 8.6 mg/dL (8.5-10.1); CARBON DIOXIDE 30.3 mmol/L (21.0-32.0); CREATININE - SERUM 1.7 mg/dL (0.6-1.3)
[2017-04-06 06:48] LABS: POTASSIUM - SERUM 3.6 mmol/L (3.5-5.1)
[2017-04-06 07:42] LABS: EOSINOPHILS 1 % (0-7); LYMPHOCYTES 24 % (15-50); MONOCYTES 9 % (2-11); NEUTROPHILS 65 % (40-80); PLATELET ESTIMATE NORMAL
[2017-04-06 08:36] VITALS: BP 105/56
[2017-04-06 11:50] VITALS: BP 105/57
[2017-04-06 15:12] VITALS: BP 95/53
[2017-04-06 20:00] VITALS: BP 118/66
[2017-04-07] VITALS: BP 104/52
[2017-04-07 04:00] VITALS: BP 115/49
[2017-04-07 06:08] LABS: CALCIUM 8.7 mg/dL (8.5-10.1); CARBON DIOXIDE 31.8 mmol/L (21.0-32.0); CREATININE - SERUM 1.6 mg/dL (0.6-1.3); POTASSIUM - SERUM 3.8 mmol/L (3.5-5.1)
[2017-04-07 06:15] LABS: BASOPHILS 0.2 % (0-2); EOSINOPHILS 1.3 % (0-7); HEMATOCRIT 38.6 % (42.0-54.0); HEMOGLOBIN 12.2 g/dL (13.5-17.5); IMMATURE GRANULOCYTES 0.4 % (0-5); LYMPHOCYTES 13.1 % (15-50); MCH 28.2 pg (26.0-34.0); MCHC 31.6 g/dL (31.0-37.0); MCV 89.4 fL (80.0-100.0); MEAN PLATELET VOLUME 9.3 fL (7.4-10.4); MONOCYTES 11.4 % (2-11); NEUTROPHILS 73.6 % (40-80); PLATELET COUNT 240 10x3/uL (130-400); RBC 4.32 10x6/uL (4.20-6.10); RDW 20.3 % (11.5-14.5); WBC 12.8 10x3/uL (4.8-10.8)
[2017-04-07 08:41] VITALS: BP 149/81
[2017-04-07 12:30] VITALS: BP 107/67
[2017-04-07 17:27] VITALS: BP 100/67
[2017-04-07 19:00] VITALS: BP 99/64
[2017-04-08] VITALS: BP 95/57
[2017-04-08 04:00] VITALS: BP 129/70
[2017-04-08 04:55] LABS: BASOPHILS 0.2 % (0-2); EOSINOPHILS 1.4 % (0-7); HEMATOCRIT 41.2 % (42.0-54.0); HEMOGLOBIN 13.4 g/dL (13.5-17.5); IMMATURE GRANULOCYTES 0.4 % (0-5); LYMPHOCYTES 14.1 % (15-50); MCH 28.9 pg (26.0-34.0); MCHC 32.5 g/dL (31.0-37.0); MCV 88.8 fL (80.0-100.0); MEAN PLATELET VOLUME 9.4 fL (7.4-10.4); NEUTROPHILS 72.9 % (40-80); PLATELET COUNT 267 10x3/uL (130-400); RBC 4.64 10x6/uL (4.20-6.10); RDW 19.8 % (11.5-14.5); WBC 15.8 10x3/uL (4.8-10.8)
[2017-04-08 05:34] LABS: ANION GAP 14.9 mmol/L (8-16); CARBON DIOXIDE 29.9 mmol/L (21.0-32.0); CREATININE - SERUM 1.8 mg/dL (0.6-1.3); POTASSIUM - SERUM 3.8 mmol/L (3.5-5.1)
[2017-04-08 08:34] VITALS: BP 116/58
[2017-04-08 12:09] VITALS: BP 118/66
[2017-04-08 16:49] LABS: APPEARANCE CLEAR (CLEAR); BILIRUBIN NEGATIVE (NEGATIVE); COLOR YELLOW (YELLOW); GLUCOSE NEGATIVE (NEGATIVE); KETONE NEGATIVE (NEGATIVE); NITRITE NEGATIVE (NEGATIVE); PROTEIN 1+ mg/dL (NEGATIVE); SPECIFIC GRAVITY 1.015 (1.005-1.020); UROBILINOGEN NORMAL (NORMAL)
[2017-04-08 16:54] VITALS: BP 117/67
[2017-04-08 20:00] VITALS: BP 127/69; BP 96/66
[2017-04-09] VITALS: BP 109/55
[2017-04-09 04:00] VITALS: BP 119/52
[2017-04-09 05:43] LABS: ANION GAP 16.7 mmol/L (8-16); CALCIUM 8.5 mg/dL (8.5-10.1); CARBON DIOXIDE 29.4 mmol/L (21.0-32.0); CREATININE - SERUM 1.7 mg/dL (0.6-1.3); POTASSIUM - SERUM 4.1 mmol/L (3.5-5.1)
[2017-04-09 06:53] LABS: HEMATOCRIT 41.3 % (42.0-54.0); HEMOGLOBIN 13.8 g/dL (13.5-17.5); MCH 29.2 pg (26.0-34.0); MCHC 33.4 g/dL (31.0-37.0); MCV 87.5 fL (80.0-100.0); MEAN PLATELET VOLUME 9.9 fL (7.4-10.4); PLATELET COUNT 292 10x3/uL (130-400); RBC 4.72 10x6/uL (4.20-6.10); RDW 19.1 % (11.5-14.5); WBC 21.7 10x3/uL (4.8-10.8)
[2017-04-09 06:54] LABS: BASOPHILS 0.1 % (0-2); EOSINOPHILS 0.5 % (0-7); IMMATURE GRANULOCYTES 0.4 % (0-5); LYMPHOCYTES 7.8 % (15-50); MONOCYTES 12.8 % (2-11); NEUTROPHILS 78.4 % (40-80)
[2017-04-09 07:42] VITALS: BP 111/68
[2017-04-09 12:41] VITALS: BP 100/61
[2017-04-09 17:09] VITALS: BP 126/55
[2017-04-09 19:00] VITALS: BP 121/69
[2017-04-10 04:00] VITALS: BP 115/62
[2017-04-10 06:35] LABS: BASOPHILS 0.1 % (0-2); EOSINOPHILS 0.2 % (0-7); HEMATOCRIT 41.9 % (42.0-54.0); HEMOGLOBIN 13.9 g/dL (13.5-17.5); IMMATURE GRANULOCYTES 0.7 % (0-5); LYMPHOCYTES 7.3 % (15-50); MCHC 33.2 g/dL (31.0-37.0); MCV 87.5 fL (80.0-100.0); MEAN PLATELET VOLUME 9.4 fL (7.4-10.4); MONOCYTES 11.9 % (2-11); NEUTROPHILS 79.8 % (40-80); PLATELET COUNT 320 10x3/uL (130-400); RBC 4.79 10x6/uL (4.20-6.10); RDW 19.1 % (11.5-14.5); WBC 28.8 10x3/uL (4.8-10.8)
[2017-04-10 06:36] LABS: ANION GAP 15.7 mmol/L (8-16); CALCIUM 9.7 mg/dL (8.5-10.1); CARBON DIOXIDE 28.2 mmol/L (21.0-32.0); CREATININE - SERUM 1.7 mg/dL (0.6-1.3); POTASSIUM - SERUM 3.9 mmol/L (3.5-5.1)
[2017-04-10 08:26] VITALS: BP 104/52
[2017-04-10 11:40] VITALS: BP 109/49
[2017-04-10 16:11] VITALS: BP 131/62
[2017-04-10 16:34] LABS: APPEARANCE CLEAR (CLEAR); BILIRUBIN NEGATIVE (NEGATIVE); COLOR YELLOW (YELLOW); GLUCOSE NEGATIVE (NEGATIVE); KETONE NEGATIVE (NEGATIVE); NITRITE NEGATIVE (NEGATIVE); PROTEIN 2+ mg/dL (NEGATIVE); SPECIFIC GRAVITY 1.015 (1.005-1.020); UROBILINOGEN NORMAL (NORMAL)
[2017-04-10 16:35] LABS: BACTERIA FEW /hpf (NONE SEEN); RED CELLS - URINE 0-5 /hpf (0-5); WHITE CELLS - URINE 0-5 /hpf (0-5)
[2017-04-10 20:25] VITALS: BP 114/70
[2017-04-11 01:13] VITALS: BP 106/75
[2017-04-11 04:32] VITALS: BP 103/53
[2017-04-11 05:27] LABS: BASOPHILS 0.2 % (0-2); EOSINOPHILS 0.4 % (0-7); HEMATOCRIT 42.8 % (42.0-54.0); IMMATURE GRANULOCYTES 0.6 % (0-5); LYMPHOCYTES 10.1 % (15-50); MCH 28.5 pg (26.0-34.0); MCHC 32.7 g/dL (31.0-37.0); MEAN PLATELET VOLUME 9.5 fL (7.4-10.4); NEUTROPHILS 81.7 % (40-80); PLATELET COUNT 358 10x3/uL (130-400); RBC 4.92 10x6/uL (4.20-6.10); RDW 18.9 % (11.5-14.5)
[2017-04-11 05:46] LABS: CALCIUM 9.5 mg/dL (8.5-10.1); CARBON DIOXIDE 28.8 mmol/L (21.0-32.0); CREATININE - SERUM 1.7 mg/dL (0.6-1.3); POTASSIUM - SERUM 3.8 mmol/L (3.5-5.1)
[2017-04-11 08:32] VITALS: BP 94/56
[2017-04-11 11:24] VITALS: BP 106/60
[2017-04-11 15:46] VITALS: BP 107/59
[2017-04-11 20:00] VITALS: BP 120/61
[2017-04-12] VITALS: BP 108/74
[2017-04-12 04:00] VITALS: BP 104/59
[2017-04-12 06:29] LABS: BASOPHILS 0.2 % (0-2); HEMATOCRIT 40.7 % (42.0-54.0); IMMATURE GRANULOCYTES 0.6 % (0-5); LYMPHOCYTES 14.6 % (15-50); MCH 28.2 pg (26.0-34.0); MCHC 31.9 g/dL (31.0-37.0); MCV 88.3 fL (80.0-100.0); MEAN PLATELET VOLUME 9.4 fL (7.4-10.4); MONOCYTES 7.5 % (2-11); NEUTROPHILS 76.1 % (40-80); PLATELET COUNT 425 10x3/uL (130-400); RBC 4.61 10x6/uL (4.20-6.10); RDW 18.8 % (11.5-14.5); WBC 17.1 10x3/uL (4.8-10.8)
[2017-04-12 06:49] LABS: ANION GAP 14.4 mmol/L (8-16); CALCIUM 9.9 mg/dL (8.5-10.1); CARBON DIOXIDE 30.5 mmol/L (21.0-32.0); CREATININE - SERUM 1.7 mg/dL (0.6-1.3); POTASSIUM - SERUM 3.9 mmol/L (3.5-5.1); VANCOMYCIN - TROUGH 21.1 ug/mL (10.0-20.0)
[2017-04-12 07:45] VITALS: BP 103/58
[2017-04-12 11:49] VITALS: BP 126/70
[2017-04-12 16:17] VITALS: BP 108/62
[2017-04-12 19:00] VITALS: BP 99/60
[2017-04-13 04:00] VITALS: BP 99/67
[2017-04-13 06:06] LABS: BASOPHILS 0.2 % (0-2); EOSINOPHILS 1.1 % (0-7); HEMATOCRIT 37.5 % (42.0-54.0); HEMOGLOBIN 11.7 g/dL (13.5-17.5); IMMATURE GRANULOCYTES 0.7 % (0-5); LYMPHOCYTES 11.1 % (15-50); MCH 28.5 pg (26.0-34.0); MCHC 31.2 g/dL (31.0-37.0); MEAN PLATELET VOLUME 9.4 fL (7.4-10.4); MONOCYTES 9.8 % (2-11); NEUTROPHILS 77.1 % (40-80); PLATELET COUNT 442 10x3/uL (130-400); RBC 4.11 10x6/uL (4.20-6.10); RDW 18.7 % (11.5-14.5); WBC 16.1 10x3/uL (4.8-10.8)
[2017-04-13 06:24] LABS: ANION GAP 12.5 mmol/L (8-16); CALCIUM 9.2 mg/dL (8.5-10.1); CREATININE - SERUM 1.8 mg/dL (0.6-1.3); POTASSIUM - SERUM 3.5 mmol/L (3.5-5.1); VANCOMYCIN - RANDOM 16.6 ug/mL (10.0-20.0)
[2017-04-13 06:42] LABS: MCV 91.2 fL (80.0-100.0)
[2017-04-13 08:46] VITALS: BP 99/65
[2017-04-13 11:23] VITALS: BP 96/62
[2017-04-13 15:39] VITALS: BP 103/60
[2017-04-13 20:00] VITALS: BP 110/64
[2017-04-14] VITALS: BP 163/49
[2017-04-14 04:00] VITALS: BP 109/68
[2017-04-14 05:25] LABS: BASOPHILS 0.1 % (0-2); EOSINOPHILS 1.1 % (0-7); HEMOGLOBIN 12.1 g/dL (13.5-17.5); IMMATURE GRANULOCYTES 1.1 % (0-5); LYMPHOCYTES 11.7 % (15-50); MCH 28.5 pg (26.0-34.0); MCHC 31.8 g/dL (31.0-37.0); MCV 89.6 fL (80.0-100.0); MEAN PLATELET VOLUME 9.2 fL (7.4-10.4); MONOCYTES 11.1 % (2-11); NEUTROPHILS 74.9 % (40-80); PLATELET COUNT 479 10x3/uL (130-400); RBC 4.24 10x6/uL (4.20-6.10); RDW 18.6 % (11.5-14.5); WBC 15.6 10x3/uL (4.8-10.8)
[2017-04-14 05:38] LABS: ANION GAP 9.1 mmol/L (8-16); CALCIUM 9.4 mg/dL (8.5-10.1); CARBON DIOXIDE 34.4 mmol/L (21.0-32.0); CREATININE - SERUM 1.6 mg/dL (0.6-1.3); POTASSIUM - SERUM 3.5 mmol/L (3.5-5.1)
[2017-04-14 08:31] VITALS: BP 130/66
[2017-04-14 11:04] VITALS: BP 107/55
[2017-04-14 15:33] VITALS: BP 105/70
[2017-04-14 19:00] VITALS: BP 106/74
[2017-04-15 04:00] VITALS: BP 111/60
[2017-04-15 05:25] LABS: BASOPHILS 0.1 % (0-2); EOSINOPHILS 1.2 % (0-7); HEMATOCRIT 38.1 % (42.0-54.0); HEMOGLOBIN 12.3 g/dL (13.5-17.5); IMMATURE GRANULOCYTES 1.6 % (0-5); LYMPHOCYTES 15.3 % (15-50); MCH 29.1 pg (26.0-34.0); MCHC 32.3 g/dL (31.0-37.0); MCV 90.1 fL (80.0-100.0); MEAN PLATELET VOLUME 9.1 fL (7.4-10.4); MONOCYTES 8.2 % (2-11); NEUTROPHILS 73.6 % (40-80); PLATELET COUNT 483 10x3/uL (130-400); RBC 4.23 10x6/uL (4.20-6.10); RDW 19.2 % (11.5-14.5); WBC 15.6 10x3/uL (4.8-10.8)
[2017-04-15 05:35] LABS: ANION GAP 9.6 mmol/L (8-16); CALCIUM 9.1 mg/dL (8.5-10.1); CREATININE - SERUM 1.7 mg/dL (0.6-1.3); POTASSIUM - SERUM 3.6 mmol/L (3.5-5.1)
[2017-04-15 08:02] VITALS: BP 113/72
[2017-04-15 12:00] VITALS: BP 119/070
[2017-04-15 16:00] VITALS: BP 102/055
[2017-04-15 21:54] VITALS: BP 106/73
[2017-04-16 01:14] VITALS: BP 100/63
[2017-04-16 05:06] LABS: BASOPHILS 0.2 % (0-2); EOSINOPHILS 1.5 % (0-7); HEMATOCRIT 37.9 % (42.0-54.0); HEMOGLOBIN 12.2 g/dL (13.5-17.5); IMMATURE GRANULOCYTES 1.4 % (0-5); LYMPHOCYTES 15.9 % (15-50); MCH 28.9 pg (26.0-34.0); MCHC 32.2 g/dL (31.0-37.0); MCV 89.8 fL (80.0-100.0); MEAN PLATELET VOLUME 8.5 fL (7.4-10.4); MONOCYTES 8.5 % (2-11); NEUTROPHILS 72.5 % (40-80); PLATELET COUNT 478 10x3/uL (130-400); RBC 4.22 10x6/uL (4.20-6.10); RDW 19.3 % (11.5-14.5); WBC 15.1 10x3/uL (4.8-10.8)
[2017-04-16 05:19] LABS: ANION GAP 11.1 mmol/L (8-16); CALCIUM 9.1 mg/dL (8.5-10.1); CARBON DIOXIDE 32.4 mmol/L (21.0-32.0); CREATININE - SERUM 1.5 mg/dL (0.6-1.3); POTASSIUM - SERUM 3.5 mmol/L (3.5-5.1)
[2017-04-16 06:08] VITALS: BP 110/53
[2017-04-16 09:18] VITALS: BP 115/70
[2017-04-16 18:10] VITALS: BP 94/57
[2017-04-16 19:00] VITALS: BP 101/65
[2017-04-17 03:48] LABS: BASOPHILS 0.3 % (0-2); EOSINOPHILS 2.3 % (0-7); HEMATOCRIT 37.4 % (42.0-54.0); HEMOGLOBIN 12.1 g/dL (13.5-17.5); IMMATURE GRANULOCYTES 2.1 % (0-5); MCH 28.5 pg (26.0-34.0); MCHC 32.4 g/dL (31.0-37.0); MCV 88.2 fL (80.0-100.0); MEAN PLATELET VOLUME 8.5 fL (7.4-10.4); MONOCYTES 8.8 % (2-11); NEUTROPHILS 68.5 % (40-80); PLATELET COUNT 493 10x3/uL (130-400); RBC 4.24 10x6/uL (4.20-6.10); RDW 19.1 % (11.5-14.5); WBC 13.3 10x3/uL (4.8-10.8)
[2017-04-17 03:57] LABS: ANION GAP 12.1 mmol/L (8-16); CALCIUM 9.5 mg/dL (8.5-10.1); CARBON DIOXIDE 33.1 mmol/L (21.0-32.0); CREATININE - SERUM 1.5 mg/dL (0.6-1.3)
[2017-04-17 03:59] LABS: POTASSIUM - SERUM 4.2 mmol/L (3.5-5.1)
[2017-04-17 04:40] VITALS: BP 103/65
[2017-04-17 09:02] VITALS: BP 124/72
[2017-04-17 11:13] VITALS: BP 131/70
[2017-04-17 17:07] VITALS: BP 138/72
[2017-04-17 19:00] VITALS: BP 100/62
[2017-04-18] VITALS: BP 107/68
[2017-04-18 04:00] VITALS: BP 111/69
[2017-04-18 04:30] LABS: BASOPHILS 0.5 % (0-2); EOSINOPHILS 2.8 % (0-7); HEMATOCRIT 37.3 % (42.0-54.0); IMMATURE GRANULOCYTES 2.4 % (0-5); LYMPHOCYTES 18.2 % (15-50); MCH 28.6 pg (26.0-34.0); MCHC 32.2 g/dL (31.0-37.0); MCV 88.8 fL (80.0-100.0); MEAN PLATELET VOLUME 8.9 fL (7.4-10.4); MONOCYTES 9.1 % (2-11); PLATELET COUNT 507 10x3/uL (130-400); RDW 19.1 % (11.5-14.5); WBC 13.1 10x3/uL (4.8-10.8)
[2017-04-18 04:52] LABS: ANION GAP 10.3 mmol/L (8-16); CALCIUM 9.3 mg/dL (8.5-10.1); CREATININE - SERUM 1.7 mg/dL (0.6-1.3); POTASSIUM - SERUM 4.3 mmol/L (3.5-5.1)
[2017-04-18 08:21] VITALS: BP 113/90
[2017-04-18 12:06] VITALS: BP 140/50
[2017-04-18 16:12] VITALS: BP 101/66
[2017-04-18 17:07] LABS: AEROBE ID Final report (())
[2017-04-18 17:07] LABS: AEROBE ID Final report (())
[2017-04-18 21:26] VITALS: BP 100/63
[2017-04-19 01:03] VITALS: BP 104/59
[2017-04-19 04:54] VITALS: BP 104/59
[2017-04-19 06:04] LABS: BASOPHILS 0.4 % (0-2); HEMATOCRIT 35.6 % (42.0-54.0); HEMOGLOBIN 11.4 g/dL (13.5-17.5); IMMATURE GRANULOCYTES 2.2 % (0-5); LYMPHOCYTES 21.1 % (15-50); MCH 28.4 pg (26.0-34.0); MCV 88.6 fL (80.0-100.0); MEAN PLATELET VOLUME 8.9 fL (7.4-10.4); MONOCYTES 11.1 % (2-11); NEUTROPHILS 62.2 % (40-80); PLATELET COUNT 491 10x3/uL (130-400); RBC 4.02 10x6/uL (4.20-6.10); RDW 19.4 % (11.5-14.5); WBC 13.5 10x3/uL (4.8-10.8)
[2017-04-19 06:35] LABS: ANION GAP 12.2 mmol/L (8-16); CALCIUM 9.2 mg/dL (8.5-10.1); CARBON DIOXIDE 32.9 mmol/L (21.0-32.0); CREATININE - SERUM 1.6 mg/dL (0.6-1.3); POTASSIUM - SERUM 4.1 mmol/L (3.5-5.1)
[2017-04-19 08:01] VITALS: BP 107/61
[2017-04-19 11:26] VITALS: BP 102/64
[2017-04-19 15:41] VITALS: BP 99/62
[2017-04-19 21:12] VITALS: BP 114/72
[2017-04-20 05:39] VITALS: BP 100/61
[2017-04-20 06:27] LABS: BASOPHILS 0.4 % (0-2); EOSINOPHILS 3.5 % (0-7); HEMATOCRIT 39.9 % (42.0-54.0); HEMOGLOBIN 12.8 g/dL (13.5-17.5); IMMATURE GRANULOCYTES 2.3 % (0-5); LYMPHOCYTES 18.8 % (15-50); MCH 28.7 pg (26.0-34.0); MCHC 32.1 g/dL (31.0-37.0); MCV 89.5 fL (80.0-100.0); MONOCYTES 10.1 % (2-11); NEUTROPHILS 64.9 % (40-80); PLATELET COUNT 504 10x3/uL (130-400); RBC 4.46 10x6/uL (4.20-6.10); RDW 19.5 % (11.5-14.5); WBC 15.1 10x3/uL (4.8-10.8)
[2017-04-20 06:37] LABS: ANION GAP 12.4 mmol/L (8-16); CARBON DIOXIDE 34.9 mmol/L (21.0-32.0); CREATININE - SERUM 1.6 mg/dL (0.6-1.3); POTASSIUM - SERUM 4.3 mmol/L (3.5-5.1)
[2017-04-20 08:02] VITALS: BP 103/63
[2017-04-20 11:29] VITALS: BP 96/64
[2017-04-20 15:11] VITALS: BP 95/66
[2017-04-22 16:15] LABS: AEROBE ID Final report (())
== END 2017-04-20 17:47 | disposition home or self-care (01) | DRG 982 ==
LOC: D.ER 13:42 → D.M2 18:32 → OBSVTIME 18:32 → D.M2 04-05 12:39
PROVIDERS: Emergency Medicine; Family Medicine; Internal Medicine Nephrology; Nurse Practitioner Family; Student in an Organized Health Care Education/Training Program; Surgery
PROC: 0DQP3ZZ Repair Rectum, Percutaneous Approach (ICD-10-PCS; 2017-04-12)
PROC: 0DBP3ZX Excision of Rectum, Percutaneous Approach, Diagnostic (ICD-10-PCS; 2017-04-12)
PROC: 0D9P3ZZ Drainage of Rectum, Percutaneous Approach (ICD-10-PCS; principal; 2017-04-12 09:15)
DX: I11.0 Hypertensive heart disease with heart failure (principal); K61.1 Rectal abscess; F17.203 Nicotine dependence unspecified, with withdrawal; N17.9 Acute kidney failure, unspecified; K51.90 Ulcerative colitis, unspecified, without complications; J98.11 Atelectasis; I50.23 Acute on chronic systolic (congestive) heart failure; J44.9 Chronic obstructive pulmonary disease, unspecified; I25.10 Atherosclerotic heart disease of native coronary artery without angina pectoris; Z95.5 Presence of coronary angioplasty implant and graft; I42.9 Cardiomyopathy, unspecified; E78.5 Hyperlipidemia, unspecified; Z91.19 Patient's noncompliance with other medical treatment and regimen; I73.9 Peripheral vascular disease, unspecified; L73.2 Hidradenitis suppurativa

== ENCOUNTER 2017-04-29 21:54 | Inpatient (IN) | payer MEDICARE, MEDICAID ==
[~2017-04-29] VITALS: Ht 185.4 cm; Wt 78.6 kg
--- NOTE | ~2017-04-29 | CN ---
PATIENT NAME:VIVIEN REYES SR MEDICAL RECORD: [id number] : 57 LOCATION:D.M2 D.2134 ADMIT DATE: 04/30/17 ACCOUNT: [id number] CONSULTING PHYSICIAN: MIRELLA BOUDREAUX MD REFERRING PHYSICIAN: ALEE JARA MD DATE OF CONSULTATION: 04/30/2017 CHIEF COMPLAINT: Infection. HISTORY OF PRESENT ILLNESS: The patient presents again with a buttock abscesses. This is either a very bad hidradenitis suppurativa or it represents a watering pot perineum consistent with Crohn's disease. The patient is a very poor historian. His symptoms are recurrent. His current symptoms have been going on for about a week. Palpation aggravates. Nothing alleviates. This is a consultation note addendum. For the typed portion of the consult note, please see the chart. This will include the past medical and surgical history, current medications, allergies, social history as well as family history. PHYSICAL EXAMINATION: GENERAL: The patient does not appear acutely ill. He does appear chronically ill. VITAL SIGNS: Reviewed. EARS: External ears appear normal. EYES: Extraocular movements are intact. NECK: Trachea is midline. CHEST: No intercostal retractions. PULMONARY: Nonlabored, no stridor. ABDOMEN: No peritonitis with movement. INTEGUMENT: Numerous areas on both buttocks in the entire perianal area that is draining purulent material. There are probably over 20 inseparable areas that are draining pus. There is some trapped pus as well. PSYCHIATRIC: Normal affect. NEUROLOGIC: There is evidence of decreased higher cortical functioning. BACK: No thoracic kyphosis. LYMPHATIC: No lymphangitic streaking of the exposed extremities. IMPRESSION: Infected hidradenitis suppurativa versus Crohn's disease. PLAN: IV antibiotics. Excisional debridement in the operating room tomorrow. TRANSINT:[id number] Voice Confirmation ID: [id number] DOCUMENT ID: [id number] MIRELLA BOUDREAUX MD CC: [id number] DICTATION DATE: 05/01/171701 FAILURE ANALYSIS TECHNICIAN: 05/01/17 175 ADM IN [facility] [address] [place] [id number]
--- NOTE | ~2017-04-29 | OP ---
PATIENT NAME: VIVIEN REYES SR MEDICAL RECORD: [id number] :57 LOCATION:D.M2 D.2134 ADMISSION DATE:04/30/17 SURGEON: MIRELLA BOUDREAUX MD DATE OF OPERATION: 05/01/2017 PREOPERATIVE DIAGNOSIS: Multiple buttock abscesses. POSTOPERATIVE DIAGNOSES: Multiple buttock abscesses with probable numerous perirectal abscesses with fistulization to the anus and rectum. PROCEDURE: Incision and drainage of multiple buttock abscess. SURGEON: Tristan Ayers MD CHEMICAL MACHINE TENDER: None. BLOOD LOSS: Minimal. ANESTHESIA: General. COMPLICATIONS: None. The risks, possible complications and alternatives to procedure were explained to the patient. He elects to proceed. OPERATIVE COURSE: The patient was conveyed to the operating room electively on 05/01/2017. General anesthesia was induced by the anesthesia staff. The patient was placed in the prone position. The buttocks were sterilely prepped and draped. I incised several of the abscesses that were undrained and curetted other fistulous tracts. Cultures were obtained. Sterile dressing was then applied. The patient was then extubated and conveyed to post-anesthesia care unit. I think the best remedy for him would be to determine whether he has Crohn's disease or not. If he does, then I would recommend a total proctocolectomy. TRANSINT:[id number] Voice Confirmation ID: [id number] DOCUMENT ID: [id number] MIRELLA BOUDREAUX MD CC: [id number] DICTATION DATE: 05/01/17 1732 ANGIOGRAPHY TECHNOLOGIST: 05/01/17 1806 ADM IN [facility] [address] [place] [address]
[2017-04-30 00:14] LABS: BASOPHILS 0.2 % (0-2); EOSINOPHILS 1.5 % (0-7); HEMATOCRIT 31.6 % (42.0-54.0); HEMOGLOBIN 9.9 g/dL (13.5-17.5); IMMATURE GRANULOCYTES 0.4 % (0-5); LYMPHOCYTES 13.1 % (15-50); MCHC 31.3 g/dL (31.0-37.0); MCV 89.5 fL (80.0-100.0); MEAN PLATELET VOLUME 10.1 fL (7.4-10.4); MONOCYTES 10.7 % (2-11); NEUTROPHILS 74.1 % (40-80); RBC 3.53 10x6/uL (4.20-6.10); RDW 20.2 % (11.5-14.5); WBC 16.8 10x3/uL (4.8-10.8)
[2017-04-30 00:16] LABS: PLATELET COUNT 293 10x3/uL (130-400)
[2017-04-30 00:27] LABS: ALBUMIN 2.5 g/dL (3.4-5.0); ANION GAP 18.6 mmol/L (8-16); BILIRUBIN - TOTAL 0.6 mg/dL (0.2-1.3); CALCIUM 8.4 mg/dL (8.5-10.1); CARBON DIOXIDE 20.2 mmol/L (21.0-32.0); CREATININE - SERUM 1.6 mg/dL (0.6-1.3); POTASSIUM - SERUM 4.8 mmol/L (3.5-5.1)
[2017-04-30 00:41] LABS: C-REACTIVE PROTEIN 12.2 mg/dL (0.0-0.9)
[2017-04-30 00:50] LABS: TROPONIN-I 1.606 ng/mL (0.000-0.060)
[2017-04-30 01:56] LABS: APPEARANCE CLEAR (CLEAR); BILIRUBIN NEGATIVE (NEGATIVE); COLOR DK YELLOW (YELLOW); GLUCOSE NEGATIVE (NEGATIVE); KETONE NEGATIVE (NEGATIVE); NITRITE NEGATIVE (NEGATIVE); PROTEIN NEGATIVE (NEGATIVE); SPECIFIC GRAVITY 1.015 (1.005-1.020)
[2017-04-30 01:58] LABS: UDS - AMPHET NEGATIVE QUAL (NEGATIVE); UDS - BARB NEGATIVE QUAL (NEGATIVE); UDS - BENZO NEGATIVE QUAL (NEGATIVE); UDS - COCAINE NEGATIVE QUAL (NEGATIVE); UDS - OPIATE NEGATIVE QUAL (NEGATIVE); UDS - PCP NEGATIVE QUAL (NEGATIVE); UDS - THC NEGATIVE QUAL (NEGATIVE)
[2017-04-30 05:40] VITALS: BP 124/76
[2017-04-30 09:51] LABS: CHOL - HDL RATIO 3.6 ratio (2.3-4.9); LDL-HDL RATIO 2.1 ratio (1.5-3.5)
[2017-04-30 10:24] VITALS: BP 110/66
[2017-04-30 14:51] VITALS: Ht 185.4 cm; Wt 78.6 kg
[2017-04-30 15:37] VITALS: BP 96/53
[2017-04-30 18:40] LABS: BASOPHILS 0.3 % (0-2); EOSINOPHILS 1.5 % (0-7); HEMATOCRIT 32.8 % (42.0-54.0); HEMOGLOBIN 10.5 g/dL (13.5-17.5); IMMATURE GRANULOCYTES 0.3 % (0-5); LYMPHOCYTES 12.7 % (15-50); MCH 28.5 pg (26.0-34.0); MCV 89.1 fL (80.0-100.0); MEAN PLATELET VOLUME 9.9 fL (7.4-10.4); MONOCYTES 13.2 % (2-11); PLATELET COUNT 309 10x3/uL (130-400); RBC 3.68 10x6/uL (4.20-6.10); RDW 20.2 % (11.5-14.5)
[2017-04-30 19:13] LABS: CALCIUM 8.6 mg/dL (8.5-10.1); CARBON DIOXIDE 20.8 mmol/L (21.0-32.0); CHLORIDE - SERUM 101 mmol/L (98-107); CKMB 1.9 U/L (0.0-3.6); GLUCOSE 121 mg/dL (74-106); SODIUM 132 mmol/L (136-145)
[2017-04-30 19:17] LABS: CALC OSMOLALITY 275 mosm/kg (275-300); CREATININE - SERUM 2.3 mg/dL (0.6-1.3); POTASSIUM - SERUM 5.6 mmol/L (3.5-5.1); UREA NITROGEN 41 mg/dL (7-18); eGFR NON AFRICAN AMERICAN 31 mL/min (90-120)
[2017-04-30 19:18] LABS: TROPONIN-I 1.594 ng/mL (0.000-0.060)
[2017-04-30 21:18] VITALS: BP 100/62
[2017-05-01 04:39] LABS: BASOPHILS 0.3 % (0-2); EOSINOPHILS 0.7 % (0-7); HEMATOCRIT 29.8 % (42.0-54.0); HEMOGLOBIN 9.7 g/dL (13.5-17.5); IMMATURE GRANULOCYTES 0.4 % (0-5); LYMPHOCYTES 12.4 % (15-50); MCH 28.9 pg (26.0-34.0); MCHC 32.6 g/dL (31.0-37.0); MCV 88.7 fL (80.0-100.0); MEAN PLATELET VOLUME 9.6 fL (7.4-10.4); MONOCYTES 13.8 % (2-11); NEUTROPHILS 72.4 % (40-80); PLATELET COUNT 248 10x3/uL (130-400); RBC 3.36 10x6/uL (4.20-6.10); WBC 18.3 10x3/uL (4.8-10.8)
[2017-05-01 04:55] LABS: ANION GAP 17.7 mmol/L (8-16); CALCIUM 8.3 mg/dL (8.5-10.1); CARBON DIOXIDE 19.8 mmol/L (21.0-32.0); CREATININE - SERUM 2.5 mg/dL (0.6-1.3)
[2017-05-01 04:57] LABS: POTASSIUM - SERUM 4.5 mmol/L (3.5-5.1)
[2017-05-01 06:37] VITALS: BP 95/64
[2017-05-01 08:21] VITALS: BP 102/68
[2017-05-01 17:32] VITALS: BP 97/80
[2017-05-01 18:01] VITALS: BP 102/72
[2017-05-01 18:28] VITALS: BP 110/74
[2017-05-01 19:00] VITALS: BP 99/74
[2017-05-02] VITALS: BP 103/69
[2017-05-02 04:00] VITALS: BP 95/64
[2017-05-02 04:29] LABS: BASOPHILS 0.3 % (0-2); EOSINOPHILS 1.6 % (0-7); HEMATOCRIT 29.7 % (42.0-54.0); HEMOGLOBIN 9.3 g/dL (13.5-17.5); IMMATURE GRANULOCYTES 0.5 % (0-5); LYMPHOCYTES 12.3 % (15-50); MCH 28.2 pg (26.0-34.0); MCHC 31.3 g/dL (31.0-37.0); MEAN PLATELET VOLUME 9.7 fL (7.4-10.4); MONOCYTES 14.2 % (2-11); NEUTROPHILS 71.1 % (40-80); PLATELET COUNT 235 10x3/uL (130-400); RDW 20.2 % (11.5-14.5); WBC 14.9 10x3/uL (4.8-10.8)
[2017-05-02 04:51] LABS: ALBUMIN 2.3 g/dL (3.4-5.0); ANION GAP 15.8 mmol/L (8-16); BILIRUBIN - TOTAL 0.4 mg/dL (0.2-1.3); CALCIUM 8.1 mg/dL (8.5-10.1); CARBON DIOXIDE 21.2 mmol/L (21.0-32.0); CREATININE - SERUM 2.1 mg/dL (0.6-1.3); PROTEIN - SERUM 6.7 g/dL (6.4-8.2)
[2017-05-02 08:29] VITALS: BP 112/75
[2017-05-02 11:09] VITALS: BP 120/76
[2017-05-02 14:49] VITALS: BP 101/66
[2017-05-02 20:30] VITALS: BP 113/72
[2017-05-03 00:30] VITALS: BP 90/58
[2017-05-03 04:00] VITALS: BP 98/56
[2017-05-03 05:41] LABS: BASOPHILS 0.1 % (0-2); EOSINOPHILS 2.2 % (0-7); HEMATOCRIT 29.8 % (42.0-54.0); HEMOGLOBIN 9.4 g/dL (13.5-17.5); IMMATURE GRANULOCYTES 0.5 % (0-5); LYMPHOCYTES 10.1 % (15-50); MCH 28.1 pg (26.0-34.0); MCHC 31.5 g/dL (31.0-37.0); MCV 89.2 fL (80.0-100.0); MEAN PLATELET VOLUME 9.8 fL (7.4-10.4); MONOCYTES 15.8 % (2-11); NEUTROPHILS 71.3 % (40-80); PLATELET COUNT 230 10x3/uL (130-400); RBC 3.34 10x6/uL (4.20-6.10); RDW 20.2 % (11.5-14.5); WBC 13.5 10x3/uL (4.8-10.8)
[2017-05-03 06:24] LABS: ALBUMIN 2.1 g/dL (3.4-5.0); ANION GAP 13.2 mmol/L (8-16); BILIRUBIN - TOTAL 0.4 mg/dL (0.2-1.3); CALCIUM 8.1 mg/dL (8.5-10.1); CARBON DIOXIDE 23.7 mmol/L (21.0-32.0); CREATININE - SERUM 1.7 mg/dL (0.6-1.3); POTASSIUM - SERUM 3.9 mmol/L (3.5-5.1); PROTEIN - SERUM 6.7 g/dL (6.4-8.2)
[2017-05-03 07:50] VITALS: BP 103/73
[2017-05-03 11:47] VITALS: BP 100/52
[2017-05-03 15:37] VITALS: BP 127/73
[2017-05-03 19:00] VITALS: BP 126/72
[2017-05-04 04:00] VITALS: BP 106/75
[2017-05-04 04:57] LABS: BASOPHILS 0.2 % (0-2); EOSINOPHILS 4.1 % (0-7); HEMATOCRIT 31.4 % (42.0-54.0); HEMOGLOBIN 9.7 g/dL (13.5-17.5); IMMATURE GRANULOCYTES 0.3 % (0-5); LYMPHOCYTES 13.9 % (15-50); MCH 28.1 pg (26.0-34.0); MCHC 30.9 g/dL (31.0-37.0); MEAN PLATELET VOLUME 9.6 fL (7.4-10.4); NEUTROPHILS 68.5 % (40-80); PLATELET COUNT 257 10x3/uL (130-400); RBC 3.45 10x6/uL (4.20-6.10); RDW 20.7 % (11.5-14.5); WBC 12.7 10x3/uL (4.8-10.8)
[2017-05-04 05:31] LABS: ALBUMIN 2.2 g/dL (3.4-5.0); ANION GAP 10.1 mmol/L (8-16); BILIRUBIN - TOTAL 0.38 mg/dL (0.2-1.3); CALCIUM 8.3 mg/dL (8.5-10.1); CARBON DIOXIDE 26.8 mmol/L (21.0-32.0); CREATININE - SERUM 1.5 mg/dL (0.6-1.3); POTASSIUM - SERUM 3.9 mmol/L (3.5-5.1); PROTEIN - SERUM 6.7 g/dL (6.4-8.2)
[2017-05-04 08:02] VITALS: BP 114/74
[2017-05-04] MEDS ORDERED: KEFLEX500 MG PO (10:41)
[2017-05-04] MEDS ORDERED: FLAGYL500 MG PO (10:41)
[2017-05-04 11:10] VITALS: BP 104/77
== END 2017-05-04 15:38 | disposition home health service (06) | DRG 393 ==
LOC: D.ER 21:54 → D.M2 04-30 04:17
PROVIDERS: Family Medicine; Surgery
PROC: 0H98XZZ Drainage of Buttock Skin, External Approach (ICD-10-PCS; principal; 2017-05-01 07:36)
DX: K61.1 Rectal abscess (principal); I21.A1 Myocardial infarction type 2; I50.23 Acute on chronic systolic (congestive) heart failure; J18.9 Pneumonia, unspecified organism; F17.203 Nicotine dependence unspecified, with withdrawal; I42.9 Cardiomyopathy, unspecified; N17.9 Acute kidney failure, unspecified; I13.0 Hypertensive heart and chronic kidney disease with heart failure and stage 1 through stage 4 chronic kidney disease, or unspecified chronic kidney disease; N39.0 Urinary tract infection, site not specified; J44.0 Chronic obstructive pulmonary disease with (acute) lower respiratory infection; K50.90 Crohn's disease, unspecified, without complications; B96.20 Unspecified Escherichia coli [E. coli] as the cause of diseases classified elsewhere; I25.10 Atherosclerotic heart disease of native coronary artery without angina pectoris; N18.3 Chronic kidney disease, stage 3 (moderate); D64.9 Anemia, unspecified; E78.5 Hyperlipidemia, unspecified; F14.188 Cocaine abuse with other cocaine-induced disorder; I73.9 Peripheral vascular disease, unspecified; Z91.19 Patient's noncompliance with other medical treatment and regimen

== ENCOUNTER 2017-12-01 21:14 | Inpatient (IN) | payer MEDICARE, MEDICAID ==
[~2017-12-01] VITALS: Ht 185.4 cm; Wt 78.9 kg
[2017-12-01 21:46] LABS: BASOPHILS 0.3 % (0-2); HEMATOCRIT 34.7 % (42.0-54.0); HEMOGLOBIN 11.4 g/dL (13.5-17.5); IMMATURE GRANULOCYTES 0.2 % (0-5); LYMPHOCYTES 17.9 % (15-50); MCH 26.8 pg (26.0-34.0); MCHC 32.9 g/dL (31.0-37.0); MCV 81.5 fL (80.0-100.0); MEAN PLATELET VOLUME 9.3 fL (7.4-10.4); MONOCYTES 10.7 % (2-11); NEUTROPHILS 67.9 % (40-80); RBC 4.26 10x6/uL (4.20-6.10); RDW 18.8 % (11.5-14.5); WBC 9.5 10x3/uL (4.8-10.8)
[2017-12-01 22:01] LABS: ALBUMIN 2.2 g/dL (3.4-5.0); ANION GAP 15.9 mmol/L (8-16); BILIRUBIN - TOTAL 0.82 mg/dL (0.2-1.3); CALCIUM 8.2 mg/dL (8.5-10.1); CARBON DIOXIDE 22.8 mmol/L (21.0-32.0); CREATININE - SERUM 1.6 mg/dL (0.6-1.3); POTASSIUM - SERUM 3.7 mmol/L (3.5-5.1); PROTEIN - SERUM 7.1 g/dL (6.4-8.2)
[2017-12-01 22:04] LABS: PLATELET COUNT 201 10x3/uL (130-400)
[2017-12-01 22:21] LABS: TROPONIN-I 0.376 ng/mL (0.000-0.060)
[2017-12-01 22:31] VITALS: BP 105/66
[2017-12-02] MEDS ORDERED: LASIX40 MG PO (00:54)
[2017-12-02 01:35] VITALS: BP 109/84
[2017-12-02 06:09] VITALS: BP 127/97
[2017-12-02 07:53] VITALS: BP 110/76
[2017-12-02 10:55] VITALS: BMI 22.8
[2017-12-02 12:29] VITALS: BP 136/87
[2017-12-02 13:17] VITALS: Ht 185.4 cm; Wt 78.9 kg
[2017-12-02 14:27] LABS: % SATURATION 6 % (15-55); IRON 17 ug/dl (35-150); TOTAL IRON BIND CAPACITY 263 ug/dl (260-445); UNSAT IRON BIND CAPACITY 246 ug/dl (150-375)
[2017-12-02 14:37] LABS: CKMB 7.3 U/L (0.0-3.6); CREATINE KINASE 306 UL (21-232); TROPONIN-I 0.309 ng/mL (0.000-0.060)
[2017-12-02 17:35] VITALS: BP 129/89
[2017-12-02 18:46] LABS: CREATINE KINASE 272 UL (21-232)
[2017-12-02 18:47] LABS: TROPONIN-I 0.305 ng/mL (0.000-0.060)
[2017-12-02 20:00] VITALS: BP 104/77
[2017-12-02 23:45] LABS: APPEARANCE CLEAR (CLEAR); BILIRUBIN NEGATIVE (NEGATIVE); COLOR YELLOW (YELLOW); GLUCOSE NEGATIVE (NEGATIVE); KETONE NEGATIVE (NEGATIVE); NITRITE NEGATIVE (NEGATIVE); PROTEIN NEGATIVE (NEGATIVE); SPECIFIC GRAVITY 1.015 (1.005-1.020); UROBILINOGEN NORMAL (NORMAL)
[2017-12-03] VITALS: BP 114/82
[2017-12-03 00:16] LABS: UDS - AMPHET NEGATIVE QUAL (NEGATIVE); UDS - BARB NEGATIVE QUAL (NEGATIVE); UDS - BENZO NEGATIVE QUAL (NEGATIVE); UDS - COCAINE POSITIVE QUAL (NEGATIVE); UDS - OPIATE NEGATIVE QUAL (NEGATIVE); UDS - PCP NEGATIVE QUAL (NEGATIVE); UDS - THC NEGATIVE QUAL (NEGATIVE)
[2017-12-03 01:16] LABS: CKMB 6.2 U/L (0.0-3.6); CREATINE KINASE 242 UL (21-232)
[2017-12-03 01:17] LABS: TROPONIN-I 0.313 ng/mL (0.000-0.060)
[2017-12-03 04:03] LABS: BASOPHILS 0.1 % (0-2); EOSINOPHILS 0 % (0-7); IMMATURE GRANULOCYTES 0.4 % (0-5); LYMPHOCYTES 7.9 % (15-50); MCH 26.5 pg (26.0-34.0); MCHC 32.4 g/dL (31.0-37.0); MCV 81.9 fL (80.0-100.0); MEAN PLATELET VOLUME 9.9 fL (7.4-10.4); MONOCYTES 6.4 % (2-11); NEUTROPHILS 85.2 % (40-80); PLATELET COUNT 226 10x3/uL (130-400); RBC 4.15 10x6/uL (4.20-6.10); RDW 18.7 % (11.5-14.5); WBC 8.1 10x3/uL (4.8-10.8)
[2017-12-03 04:24] LABS: ANION GAP 14.5 mmol/L (8-16); CALCIUM 8.1 mg/dL (8.5-10.1); CARBON DIOXIDE 22.4 mmol/L (21.0-32.0); CREATININE - SERUM 1.7 mg/dL (0.6-1.3)
[2017-12-03 04:29] LABS: POTASSIUM - SERUM 4.9 mmol/L (3.5-5.1)
[2017-12-03 06:31] VITALS: BP 115/84
[2017-12-03 07:59] VITALS: BP 119/91
[2017-12-03 09:16] LABS: FOLATE (FOLIC ACID) - SERUM 8.4 ng/mL (>3.0)
[2017-12-03 11:03] VITALS: BP 110/80
[2017-12-03 15:12] VITALS: BP 107/79
[2017-12-03 22:45] VITALS: BP 108/77
[2017-12-04 05:09] LABS: BASOPHILS 0 % (0-2); EOSINOPHILS 0 % (0-7); HEMATOCRIT 34.7 % (42.0-54.0); HEMOGLOBIN 11.4 g/dL (13.5-17.5); IMMATURE GRANULOCYTES 0.3 % (0-5); LYMPHOCYTES 6.2 % (15-50); MCH 26.7 pg (26.0-34.0); MCHC 32.9 g/dL (31.0-37.0); MCV 81.3 fL (80.0-100.0); MEAN PLATELET VOLUME 10.2 fL (7.4-10.4); MONOCYTES 4.8 % (2-11); NEUTROPHILS 88.7 % (40-80); PLATELET COUNT 248 10x3/uL (130-400); RBC 4.27 10x6/uL (4.20-6.10); RDW 19.1 % (11.5-14.5); WBC 9.7 10x3/uL (4.8-10.8)
[2017-12-04 05:24] LABS: ANION GAP 17.8 mmol/L (8-16); CALCIUM 8.3 mg/dL (8.5-10.1); CREATININE - SERUM 1.7 mg/dL (0.6-1.3); POTASSIUM - SERUM 4.8 mmol/L (3.5-5.1)
[2017-12-04 06:43] VITALS: BP 130/91
[2017-12-04 07:57] VITALS: BP 119/89
[2017-12-04 11:59] VITALS: BP 128/83
[2017-12-04] MEDS ORDERED: VIBRAMYCIN 100100 MG PO (13:58)
== END 2017-12-04 16:30 | disposition home or self-care (01) | DRG 291 ==
LOC: D.ER 21:14 → D.M2 23:01
PROVIDERS: Emergency Medicine; Internal Medicine Nephrology
DX: I13.0 Hypertensive heart and chronic kidney disease with heart failure and stage 1 through stage 4 chronic kidney disease, or unspecified chronic kidney disease (principal); J96.01 Acute respiratory failure with hypoxia; I50.23 Acute on chronic systolic (congestive) heart failure; J44.0 Chronic obstructive pulmonary disease with (acute) lower respiratory infection; N17.9 Acute kidney failure, unspecified; F17.213 Nicotine dependence, cigarettes, with withdrawal; J44.1 Chronic obstructive pulmonary disease with (acute) exacerbation; I42.9 Cardiomyopathy, unspecified; J20.9 Acute bronchitis, unspecified; T17.900A Unspecified foreign body in respiratory tract, part unspecified causing asphyxiation, initial encounter; N18.9 Chronic kidney disease, unspecified; D50.9 Iron deficiency anemia, unspecified; Z91.19 Patient's noncompliance with other medical treatment and regimen; I27.20 Pulmonary hypertension, unspecified; I25.10 Atherosclerotic heart disease of native coronary artery without angina pectoris; F10.10 Alcohol abuse, uncomplicated; F14.90 Cocaine use, unspecified, uncomplicated; I08.1 Rheumatic disorders of both mitral and tricuspid valves; I73.9 Peripheral vascular disease, unspecified

== ENCOUNTER 2018-01-02 17:40 | Inpatient (IN) | payer MEDICARE, MEDICAID ==
[~2018-01-02] VITALS: Ht 185.4 cm; Wt 75.0 kg
[2018-01-02] VITALS (9 sets, daily range): BP systolic 95–140; BP diastolic 55–85; BMI 21.8
--- NOTE | ~2018-01-02 | MORECARE ---
CASE MANAGEMENT DISCHARGE SUMMARY PATIENT: VIVIEN REYES UNIT: [id number] ADM DATE: 01/03/18 AGE: 62 : 57 SEX: M ROOM/BED: D.5162 AUTHOR: CHARO SONG PHYSICIAN: REFERRING PHYSICIAN: DAVID MCCLAIN MD DATE OF SERVICE: 01/10/18 Discharge Plan Patient Name: VIVIEN REYES Facility: [facility]:[place] : 1955 Planned Disposition: Home with Home Health Anticipated Discharge Date: 01/07/18 Discharge Date: 01/07/2018 Expected LOS: 4 Initial Reviewer: [email or web address] Initial Review Date: 01/02/2018 Generated: 01/10/18 6:36 pm Comments DCP- Discharge Planning Updated by [email or web address]: Robel Stout on 01/10/18 4:[address] Patient Name: VIVIEN REYES Encounter No: [id number] : 1955 Primary Insurance: [facility] MEDICARE SOLUTIONS Anticipated DC Date: 01-07-2018 Planned Disposition: Home with Home Health External Planned Provider: [facility] DCP follow-up note: CM RECEIVED CALL FROM ROMULO OF [facility] WHO INFORMED CM THAT THEY ARE NOT ABLE TO CONTACT PT AFTER MULTIPLE ATTEMPTS AND PT IS NOT CALLING HOME HEALTH BACK. CM OBSERVED THAT PT HAD [facility] CONTACT NUMBER PROVIDED IN DISCHARGE INSTRUCTIONS. [facility] HAS NOT RECEIVED A CALL FROM PT AT ALL. [facility] IS NOT ABLE TO ADMIT PT FOR HOME HEALTH SERVICES, PT HAS NOT CONTACTED THEM AND THEY HAVE NOT BEEN ABLE TO LOCATE PT AT HOME OR REACH VIA PHONE. HORACIO Garcia DCP- Discharge Planning Updated by [email or web address]: Robel Stout on 01/07/18 3:[address] Patient Name: VIVIEN REYES Encounter No: [id number] : 1955 Primary Insurance: [facility] MEDICARE SOLUTIONS Anticipated DC Date: 01-07-2018 Planned Disposition: Home with Home Health External Planned Provider: [facility] DISCHARGE PLANNING COMMENTS: CM MET WITH PT IN ROOM TO DISCUSS DISCHARGE PLANNING AND NEEDS. PT REPORTS LIVING AT HOME INDEPENDENTLY AND ALONE. PT HAS A CANE AND HOME OXYGEN ONLY FROM [facility]. PT HAS NO OUTSIDE SERVICES ASSISTING IN THE HOME. CM DISCUSSED AVAILABILITY OF HOME HEALTH, REHAB SERVICES AND MEDICAL EQUIPMENT. PT REPORTS HE WAS IN HERE LAST MONTH AND IS BACK WITH SHORTNESS OF BREATH. PT WILL ACCEPT HOME HEALTH, CHOICE FOR [facility] SIGNED. PT REPORTS HE WILL PHONE A FRIEND WHO WILL PICK HIM UP FOR DISCHARGE HOME. IMPORTANT MESSAGE FROM MEDICARE PROVIDED AND EXPLAINED. CM CALLED [facility], , SPOKE TO ROMULO WHO REPORTS THEY WILL ACCEPT REFERRAL AND CHECK PT'S INSURANCE TO ENSURE HOME HEALTH COVERAGE. THEY WILL PLAN TO DO HOME HEALTH ADMISSION 01-10-18. PT NOTIFIED IN AGREEMENT. CM FAXED REFERRAL TO [facility] AT [phone]. TO COMPLETE HOME HEALTH ARRANGEMENTS FOR OBSERVATION AND ASSESSMENT, MEDICATION MANAGEMENT AND CHF TEACHING, CM REQUIRES HOME HEALTH ORDER FROM PHYSICIAN. CM TO COMPLETE HOME HEALTH ARRANGEMENTS WITH [facility] WITH PHYSICIAN AGREEMENT AND ORDER. Robel Stout, CASE MANAGEMENT Appended by Robel Stout on 01/07/2018 16:25 CDT: CM RECEIVED DISCHARGE INFORMATION, SPOKE TO BEDSIDE NURSE AND RECEIVED HOME HEALTH ORDERS; CM CALLED [facility], , SPOKE TO ROMULO WHO REPORTS THEY WILL ACCEPT REFERRAL AND WILL DO HOME HEALTH ADMISSION 01-10-18. PT NOTIFIED IN AGREEMENT. CM FAXED DISCHARGE INFORMATION TO [facility] AT [phone]. PT DENIES DISCHARGE NEEDS. ROBEL STOUT, CASE MANAGEMENT DCPIA - Discharge Planning Initial Assessment Updated by [email or web address]: Robel Stout on 01/07/18 10:23 am * Is the patient Alert and Oriented? Yes * How many steps to enter\exit or inside your home? * PCP DR. HALL * Pharmacy [facility] * Preadmission Environment Home Alone * ADLs Independent * Equipment [facility] Oxygen * Other Equipment HOME OXYGEN ONLY - [facility] IS PROVIDER * List name and contact numbers for known caregivers / representatives who currently or will assist patient after discharge: ALESIA LARSON, FRIEND, CLIVE PUCKETT, FRIEND, * Verbal permission to speak to the caregivers and representatives has been obtained from the patient. N/A * Community resources currently utilized None * Please name any agencies selected above. NONE * Additional services required to return to the preadmission environment? No * Can the patient safely return to the preadmission environment? Yes * Has this patient been hospitalized within the prior 30 days at any hospital? No Coverage Notice Reviewer: [id number] Hudson Stout Notice Issued Date-Time: 01/07/2018 10:15 Notice Type: IM Discharge Notice Notice Delivered To: Patient Relationship to Patient: [employer] [employer] Orthodontist Name: Delivery Method: HAND - Hand Delivered Shae Days: Prior Verbal Notification: Recipient Understood Notice: Yes Recipient Signature: Yes Med Rec Note Co-signed by Attending: Coverage Notice Comment: Last DP export: 01/07/18 3:25 Patient Name: VIVIEN REYES Page [id number] at 1736 All edits/amendments must be made on the electronic document DICTATION DATE: 01/10/181735 GLAZIER METAL FURNITURE: LEIGH 01/10/181735 RPT#: [id number] DC DATE:01/07/18 STATUS: DIS IN [facility] [address] [place] [address] END OF REPORT
--- NOTE | ~2018-01-02 | MORECARE ---
CASE MANAGEMENT DISCHARGE SUMMARY PATIENT: VIVIEN REYES SR UNIT: [id number] ADM DATE: 01/03/18 AGE: 62 : 57 SEX: M ROOM/BED: D.2118 AUTHOR: CHARO SONG PHYSICIAN: REFERRING PHYSICIAN: DAVID MCCLAIN MD DATE OF SERVICE: 01/07/18 Discharge Plan Patient Name: VIVIEN REYES Facility: [facility]:[place] : 1955 Planned Disposition: Home with Home Health Anticipated Discharge Date: 01/07/18 Discharge Date: Expected LOS: 4 Initial Reviewer: [email or web address] Initial Review Date: 01/02/2018 Generated: 01/07/18 10:55 am Patient Name: VIVIEN REYES Page [phone] at 0955 All edits/amendments must be made on the electronic document DICTATION DATE: 01/07/18954 LABOR ECONOMICS TEACHER: LEIGH 01/07/18954 RPT#: [id number] DC DATE: STATUS: ADM IN [facility] [address] [place] [address] END OF REPORT
--- NOTE | ~2018-01-02 | MORECARE ---
CASE MANAGEMENT DISCHARGE SUMMARY PATIENT: VIVIEN REYES UNIT: [id number] ADM DATE: 01/03/18 AGE: 62 : 57 SEX: M ROOM/BED: D.8014 AUTHOR: CHARO SONG PHYSICIAN: REFERRING PHYSICIAN: DAVID MCCLAIN MD DATE OF SERVICE: 01/07/18 Discharge Plan Patient Name: VIVIEN REYES Facility: [facility]:[place] : 1955 Planned Disposition: Home with Home Health Anticipated Discharge Date: 01/07/18 Discharge Date: Expected LOS: 4 Initial Reviewer: [email or web address] Initial Review Date: 01/02/2018 Generated: 01/07/18 11:43 am Comments DCP- Discharge Planning Updated by [email or web address]: Robel Brown on 01/07/18 9:[address] Patient Name: VIVIEN REYES Encounter No: [id number] : 1955 Primary Insurance: [facility] MEDICARE SOLUTIONS Anticipated DC Date: 01-07-2018 Planned Disposition: Home with Home Health External Planned Provider: [facility] DISCHARGE PLANNING COMMENTS: CM MET WITH PT IN ROOM TO DISCUSS DISCHARGE PLANNING AND NEEDS. PT REPORTS LIVING AT HOME INDEPENDENTLY AND ALONE. PT HAS A CANE AND HOME OXYGEN ONLY FROM [facility]. PT HAS NO OUTSIDE SERVICES ASSISTING IN THE HOME. CM DISCUSSED AVAILABILITY OF HOME HEALTH, REHAB SERVICES AND MEDICAL EQUIPMENT. PT REPORTS HE WAS IN HERE LAST MONTH AND IS BACK WITH SHORTNESS OF BREATH. PT WILL ACCEPT HOME HEALTH, CHOICE FOR [facility] SIGNED. PT REPORTS HE WILL PHONE A FRIEND WHO WILL PICK HIM UP FOR DISCHARGE HOME. IMPORTANT MESSAGE FROM MEDICARE PROVIDED AND EXPLAINED. CM CALLED [facility], , SPOKE TO ROMULO WHO REPORTS THEY WILL ACCEPT REFERRAL AND CHECK PT'S INSURANCE TO ENSURE HOME HEALTH COVERAGE. THEY WILL PLAN TO DO HOME HEALTH ADMISSION 01-10-18. PT NOTIFIED IN AGREEMENT. CM FAXED REFERRAL TO [facility] AT [phone]. TO COMPLETE HOME HEALTH ARRANGEMENTS FOR OBSERVATION AND ASSESSMENT, MEDICATION MANAGEMENT AND CHF TEACHING, CM REQUIRES HOME HEALTH ORDER FROM PHYSICIAN. CM TO COMPLETE HOME HEALTH ARRANGEMENTS WITH [facility] WITH PHYSICIAN AGREEMENT AND ORDER. Robel Brown CASE MANAGEMENT DCPIA - Discharge Planning Initial Assessment Updated by [email or web address]: Robel Brown on 01/07/18 10:23 am * Is the patient Alert and Oriented? Yes * How many steps to enter\exit or inside your home? * PCP DR. HALL * Pharmacy [facility] * Preadmission Environment Home Alone * ADLs Independent * Equipment [facility] Oxygen * Other Equipment HOME OXYGEN ONLY - [facility] IS PROVIDER * List name and contact numbers for known caregivers / representatives who currently or will assist patient after discharge: ALESIA LARSON, FRIEND, CLIVE PUCKETT, FRIEND, * Verbal permission to speak to the caregivers and representatives has been obtained from the patient. N/A * Community resources currently utilized None * Please name any agencies selected above. NONE * Additional services required to return to the preadmission environment? No * Can the patient safely return to the preadmission environment? Yes * Has this patient been hospitalized within the prior 30 days at any hospital? No External Providers External Provider: [facility] Next Contact Date: 01/07/2018 Service Request Date: Service Type: Resolution: Reviewer: Comments: Last DP export: 01/07/18 9:27 Patient Name: VIVIEN REYES Page [phone] at 1043 All edits/amendments must be made on the electronic document DICTATION DATE: 01/07/181042 PHYSICAL PLANT EMPLOYEE: LEIGH 01/07/18 104 RPT#: [id number] DC DATE: STATUS: ADM IN [facility] [address] [place] [address] END OF REPORT
--- NOTE | ~2018-01-02 | MORECARE ---
CASE MANAGEMENT DISCHARGE SUMMARY PATIENT: VIVIEN REYES UNIT: [id number] ADM DATE: 01/03/18 AGE: 62 : 57 SEX: M ROOM/BED: D.2118 AUTHOR: CHARO SONG PHYSICIAN: REFERRING PHYSICIAN: DAVID MCCLAIN MD DATE OF SERVICE: 01/07/18 Discharge Plan Patient Name: VIVIEN REYES [facility] [facility] 1955 Planned Disposition: Home with Home Health Anticipated Discharge Date: 01/07/18 Discharge Date: Expected LOS: 4 Initial Reviewer: [email or web address] Initial Review Date: 01/02/2018 Generated: 01/07/18 11:27 am DCPIA - Discharge Planning Initial Assessment Updated by [email or web address]: Robel Brown on 01/07/18 10:23 am * Is the patient Alert and Oriented? Yes * How many steps to enter\exit or inside your home? * PCP DR. HALL * Pharmacy [facility] * Preadmission Environment Home Alone * ADLs Independent * Equipment Cane Oxygen * Other Equipment HOME OXYGEN ONLY - [facility] IS PROVIDER * List name and contact numbers for known caregivers / representatives who currently or will assist patient after discharge: ALESIA LARSON, FRIEND, CLIVE PUCKETT, FRIEND, * Verbal permission to speak to the caregivers and representatives has been obtained from the patient. N/A * Community resources currently utilized None * Please name any agencies selected above. NONE * Additional services required to return to the preadmission environment? No * Can the patient safely return to the preadmission environment? Yes * Has this patient been hospitalized within the prior 30 days at any hospital? No Last DP export: 01/07/18 8:55 Patient Name: VIVIEN REYES Page [phone] at 1027 All edits/amendments must be made on the electronic document DICTATION DATE: 01/07/18 1027 STEEL FIXER: LEIGH 01/07/18 1027 RPT#: [id number] DC DATE: STATUS: ADM IN [facility] [address] [place] [address] END OF REPORT
--- NOTE | ~2018-01-02 | MORECARE ---
CASE MANAGEMENT DISCHARGE SUMMARY PATIENT: VIVIEN REYES SR UNIT: [id number] ADM DATE: 01/03/18 AGE: 62 : 57 SEX: M ROOM/BED: D.6286 AUTHOR: NOHEMIDOC PHYSICIAN: REFERRING PHYSICIAN: DAVID MCCLAIN MD DATE OF SERVICE: 01/07/18 Discharge Plan Patient Name: VIVIEN REYES Facility: [facility]:[place] : 1955 Planned Disposition: Home with Home Health Anticipated Discharge Date: 01/07/18 Discharge Date: 01/07/2018 Expected LOS: 4 Initial Reviewer: [id number] Initial Review Date: 01/02/2018 Generated: 01/07/18 5:25 pm Comments DCP- Discharge Planning Updated by [email or web address]: Robel Stout on 01/07/18 3:[address] Patient Name: VIVIEN REYES Encounter No: [id number] : 1955 Primary Insurance: [facility] MEDICARE SOLUTIONS Anticipated DC Date: 01-07-2018 Planned Disposition: Home with Home Health External Planned Provider: [facility] DISCHARGE PLANNING COMMENTS: CM MET WITH PT IN ROOM TO DISCUSS DISCHARGE PLANNING AND NEEDS. PT REPORTS LIVING AT HOME INDEPENDENTLY AND ALONE. PT HAS A CANE AND HOME OXYGEN ONLY FROM [facility]. PT HAS NO OUTSIDE SERVICES ASSISTING IN THE HOME. CM DISCUSSED AVAILABILITY OF HOME HEALTH, REHAB SERVICES AND MEDICAL EQUIPMENT. PT REPORTS HE WAS IN HERE LAST MONTH AND IS BACK WITH SHORTNESS OF BREATH. PT WILL ACCEPT HOME HEALTH, CHOICE FOR [facility] SIGNED. PT REPORTS HE WILL PHONE A FRIEND WHO WILL PICK HIM UP FOR DISCHARGE HOME. IMPORTANT MESSAGE FROM MEDICARE PROVIDED AND EXPLAINED. CM CALLED [facility], , SPOKE TO ROMULO WHO REPORTS THEY WILL ACCEPT REFERRAL AND CHECK PT'S INSURANCE TO ENSURE HOME HEALTH COVERAGE. THEY WILL PLAN TO DO HOME HEALTH ADMISSION 01-10-18. PT NOTIFIED IN AGREEMENT. CM FAXED REFERRAL TO [facility] AT [phone]. TO COMPLETE HOME HEALTH ARRANGEMENTS FOR OBSERVATION AND ASSESSMENT, MEDICATION MANAGEMENT AND CHF TEACHING, CM REQUIRES HOME HEALTH ORDER FROM PHYSICIAN. CM TO COMPLETE HOME HEALTH ARRANGEMENTS WITH [facility] WITH PHYSICIAN AGREEMENT AND ORDER. Robel Stout, CASE MANAGEMENT Appended by Robel Stout on 01/07/2018 16:25 CDT: CM RECEIVED DISCHARGE INFORMATION, SPOKE TO BEDSIDE NURSE AND RECEIVED HOME HEALTH ORDERS; CM CALLED [facility], , SPOKE TO ROMULO WHO REPORTS THEY WILL ACCEPT REFERRAL AND WILL DO HOME HEALTH ADMISSION 01-10-18. PT NOTIFIED IN AGREEMENT. CM FAXED DISCHARGE INFORMATION TO [facility] AT [phone]. PT DENIES DISCHARGE NEEDS. ROBEL STOUT, CASE MANAGEMENT DCPIA - Discharge Planning Initial Assessment Updated by [id number]: Robel Stout on 01/07/18 10:23 am * Is the patient Alert and Oriented? Yes * How many steps to enter\exit or inside your home? * PCP DR. HALL * Pharmacy [facility] * Preadmission Environment Home Alone * ADLs Independent * Equipment Cane Oxygen * Other Equipment HOME OXYGEN ONLY - [facility] IS PROVIDER * List name and contact numbers for known caregivers / representatives who currently or will assist patient after discharge: ALESIA LARSON, FRIEND, CLIVE PUCKETT, FRIEND, * Verbal permission to speak to the caregivers and representatives has been obtained from the patient. N/A * Community resources currently utilized None * Please name any agencies selected above. NONE * Additional services required to return to the preadmission environment? No * Can the patient safely return to the preadmission environment? Yes * Has this patient been hospitalized within the prior 30 days at any hospital? No Coverage Notice Reviewer: [id number] - Robel Stout Notice Issued Date-Time: 01/07/2018 10:15 Notice Type: IM Discharge Notice Notice Delivered To: Patient Relationship to Patient: Ice Plant Operator Name: Delivery Method: HAND - Hand Delivered Shae Days: Prior Verbal Notification: Recipient Understood Notice: Yes Recipient Signature: Yes Med Rec Note Co-signed by Attending: Coverage Notice Comment: Last DP export: 01/07/18 9:43 Patient Name: VIVIEN REYES Page [id number] at 1621 All edits/amendments must be made on the electronic document DICTATION DATE: 01/07/181624 LANDING SIGNAL OFFICER: LEIGH 01/07/181 RPT#: [id number] DC DATE:01/07/18 STATUS: DIS IN [facility] [address] [place] [address] END OF REPORT
[~2018-01-02 17:40] MED LIST changes: +LASIX40 MG PO; +VIBRAMYCIN 100100 MG PO
[2018-01-02 18:36] LABS: BASOPHILS 0.2 % (0-2); EOSINOPHILS 3.4 % (0-7); HEMOGLOBIN 10.5 g/dL (13.5-17.5); IMMATURE GRANULOCYTES 0.2 % (0-5); LYMPHOCYTES 18.4 % (15-50); MCH 27.1 pg (26.0-34.0); MCHC 31.8 g/dL (31.0-37.0); MCV 85.1 fL (80.0-100.0); MEAN PLATELET VOLUME 8.8 fL (7.4-10.4); MONOCYTES 9.8 % (2-11); PLATELET COUNT 272 10x3/uL (130-400); RBC 3.88 10x6/uL (4.20-6.10); RDW 20.3 % (11.5-14.5); WBC 9.2 10x3/uL (4.8-10.8)
[2018-01-02 19:00] LABS: APTT 33.9 SECONDS (22.8-39.4); INR 1.29 (0.85-1.17); PROTIME 15.7 SECONDS (11.6-15.0)
[2018-01-02 19:01] LABS: D-DIMER-QUANTITATIVE 1.73 ug/mLFEU (0.20-0.54)
[2018-01-02 19:12] LABS: ALBUMIN 2.8 g/dL (3.4-5.0); ALKALINE PHOSPHATASE 372 U/L (46-116); ALT (SGPT) 14 U/L (10-68); BILIRUBIN - TOTAL 1.08 mg/dL (0.2-1.3); CALC OSMOLALITY 283 mosm/kg (275-300); CARBON DIOXIDE 25.3 mmol/L (21.0-32.0); CHLORIDE - SERUM 101 mmol/L (98-107); CREATININE - SERUM 1.9 mg/dL (0.6-1.3); GLUCOSE 91 mg/dL (74-106); POTASSIUM - SERUM 4.1 mmol/L (3.5-5.1); PROTEIN - SERUM 7.6 g/dL (6.4-8.2); SODIUM 139 mmol/L (136-145); UREA NITROGEN 28 mg/dL (7-18); eGFR NON AFRICAN AMERICAN 38 mL/min (90-120)
[2018-01-02 19:29] LABS: CKMB 2.6 U/L (0.0-3.6); CREATINE KINASE 115 UL (21-232); PRO BNP 21599 pg/mL (0-125)
[2018-01-02 19:31] LABS: TROPONIN-I 0.402 ng/mL (0.000-0.060)
[2018-01-02 21:39] LABS: UDS - AMPHET NEGATIVE QUAL (NEGATIVE); UDS - BARB NEGATIVE QUAL (NEGATIVE); UDS - BENZO NEGATIVE QUAL (NEGATIVE); UDS - COCAINE POSITIVE QUAL (NEGATIVE); UDS - OPIATE NEGATIVE QUAL (NEGATIVE); UDS - PCP NEGATIVE QUAL (NEGATIVE); UDS - THC NEGATIVE QUAL (NEGATIVE)
[2018-01-03] VITALS: BP 129/57; BP 135/75
[2018-01-03 01:53] LABS: CKMB 2.9 U/L (0.0-3.6); CREATINE KINASE 111 UL (21-232)
[2018-01-03 01:54] LABS: TROPONIN-I 0.392 ng/mL (0.000-0.060)
[2018-01-03 04:00] VITALS: BP 122/69
[2018-01-03 06:33] LABS: BASOPHILS 0 % (0-2); EOSINOPHILS 0 % (0-7); HEMATOCRIT 32.2 % (42.0-54.0); HEMOGLOBIN 10.2 g/dL (13.5-17.5); IMMATURE GRANULOCYTES 0.3 % (0-5); LYMPHOCYTES 11.1 % (15-50); MCHC 31.7 g/dL (31.0-37.0); MCV 85.2 fL (80.0-100.0); MEAN PLATELET VOLUME 9.3 fL (7.4-10.4); MONOCYTES 1.1 % (2-11); NEUTROPHILS 87.5 % (40-80); PLATELET COUNT 293 10x3/uL (130-400); RBC 3.78 10x6/uL (4.20-6.10); RDW 20.3 % (11.5-14.5)
[2018-01-03 06:45] LABS: WBC 6.5 10x3/uL (4.8-10.8)
[2018-01-03 06:58] LABS: CALCIUM 8.7 mg/dL (8.5-10.1); CARBON DIOXIDE 22.6 mmol/L (21.0-32.0); CHLORIDE - SERUM 103 mmol/L (98-107); CKMB 3.1 U/L (0.0-3.6); CREATINE KINASE 108 UL (21-232); POTASSIUM - SERUM 4.4 mmol/L (3.5-5.1); SODIUM 140 mmol/L (136-145); UREA NITROGEN 28 mg/dL (7-18); eGFR NON AFRICAN AMERICAN 36 mL/min (90-120)
[2018-01-03 07:02] LABS: CALC OSMOLALITY 287 mosm/kg (275-300); GLUCOSE 145 mg/dL (74-106); TROPONIN-I 0.368 ng/mL (0.000-0.060)
[2018-01-03 08:34] VITALS: BP 130/95
[2018-01-03 11:05] VITALS: BP 130/88
[2018-01-03] MEDS ORDERED: ALBUTEROL SULF8.5 GM INH (11:06)
[2018-01-03] MEDS ORDERED: IPRAT-ALBUT 0.5-3 ML UPD (11:07)
[2018-01-03] MEDS ORDERED: POTASSIUM CHLO10 ME1 PO (11:07)
[2018-01-03] MEDS ORDERED: OMEPRAZOLE20 M1 PO (11:07)
[2018-01-03 13:29] LABS: CKMB 3.1 U/L (0.0-3.6); CREATINE KINASE 109 UL (21-232)
[2018-01-03 13:31] LABS: TROPONIN-I 0.351 ng/mL (0.000-0.060)
[2018-01-03 15:42] VITALS: BP 131/82
[2018-01-03 20:44] VITALS: BP 111/87
[2018-01-04 00:25] VITALS: BP 107/73
[2018-01-04 04:00] VITALS: BP 116/70
[2018-01-04 05:55] LABS: BASOPHILS 0.1 % (0-2); EOSINOPHILS 0.1 % (0-7); HEMATOCRIT 34.2 % (42.0-54.0); HEMOGLOBIN 10.6 g/dL (13.5-17.5); IMMATURE GRANULOCYTES 0.5 % (0-5); LYMPHOCYTES 9.7 % (15-50); MCH 26.7 pg (26.0-34.0); MCV 86.1 fL (80.0-100.0); MEAN PLATELET VOLUME 9.5 fL (7.4-10.4); MONOCYTES 14.5 % (2-11); NEUTROPHILS 75.1 % (40-80); PLATELET COUNT 293 10x3/uL (130-400); RBC 3.97 10x6/uL (4.20-6.10); RDW 20.2 % (11.5-14.5)
[2018-01-04 06:06] LABS: WBC 13.9 10x3/uL (4.8-10.8)
[2018-01-04 06:14] LABS: ALBUMIN 2.7 g/dL (3.4-5.0); ANION GAP 16.9 mmol/L (8-16); BILIRUBIN - TOTAL 0.75 mg/dL (0.2-1.3); CALCIUM 8.4 mg/dL (8.5-10.1); CARBON DIOXIDE 25.6 mmol/L (21.0-32.0); CREATININE - SERUM 2.5 mg/dL (0.6-1.3); MAGNESIUM - SERUM 1.7 mg/dL (1.8-2.4); POTASSIUM - SERUM 4.5 mmol/L (3.5-5.1); PROTEIN - SERUM 7.2 g/dL (6.4-8.2)
[2018-01-04 07:56] VITALS: BP 113/81
[2018-01-04 10:57] VITALS: BP 96/64
[2018-01-04 12:24] VITALS: BMI 21.7
[2018-01-04 13:09] VITALS: Ht 185.4 cm; Wt 75.0 kg
[2018-01-04 15:30] VITALS: BP 116/72
[2018-01-04 16:16] LABS: APPEARANCE CLEAR (CLEAR); BILIRUBIN NEGATIVE (NEGATIVE); COLOR YELLOW (YELLOW); GLUCOSE NEGATIVE (NEGATIVE); KETONE NEGATIVE (NEGATIVE); NITRITE NEGATIVE (NEGATIVE); PROTEIN TRACE mg/dL (NEGATIVE); RED CELLS - URINE RARE /hpf (0-5); UROBILINOGEN NORMAL (NORMAL); WHITE CELLS - URINE NSEEN /hpf (0-5)
[2018-01-04 21:28] VITALS: BP 117/76
[2018-01-05 01:34] VITALS: BP 101/58
[2018-01-05 05:59] LABS: BASOPHILS 0.1 % (0-2); EOSINOPHILS 0.1 % (0-7); HEMATOCRIT 31.6 % (42.0-54.0); IMMATURE GRANULOCYTES 0.3 % (0-5); LYMPHOCYTES 11.4 % (15-50); MCH 26.8 pg (26.0-34.0); MCHC 31.6 g/dL (31.0-37.0); MCV 84.7 fL (80.0-100.0); MEAN PLATELET VOLUME 9.8 fL (7.4-10.4); MONOCYTES 12.9 % (2-11); NEUTROPHILS 75.2 % (40-80); PLATELET COUNT 275 10x3/uL (130-400); RBC 3.73 10x6/uL (4.20-6.10); RDW 19.6 % (11.5-14.5); WBC 12.3 10x3/uL (4.8-10.8)
[2018-01-05 06:10] VITALS: BP 96/60
[2018-01-05 06:27] LABS: ALBUMIN 2.6 g/dL (3.4-5.0); BILIRUBIN - TOTAL 0.78 mg/dL (0.2-1.3); CARBON DIOXIDE 24.1 mmol/L (21.0-32.0); CREATININE - SERUM 2.6 mg/dL (0.6-1.3); MAGNESIUM - SERUM 1.7 mg/dL (1.8-2.4); POTASSIUM - SERUM 4.1 mmol/L (3.5-5.1); PROTEIN - SERUM 6.7 g/dL (6.4-8.2)
[2018-01-05 10:19] VITALS: BP 108/71
[2018-01-05 11:20] VITALS: BP 96/50
[2018-01-05 14:47] VITALS: BP 113/78
[2018-01-05 21:31] VITALS: BP 117/69
[2018-01-06 01:11] VITALS: BP 110/72
[2018-01-06 05:48] LABS: BASOPHILS 0.1 % (0-2); EOSINOPHILS 0.1 % (0-7); IMMATURE GRANULOCYTES 0.3 % (0-5); LYMPHOCYTES 13.1 % (15-50); MCHC 32.3 g/dL (31.0-37.0); MCV 83.6 fL (80.0-100.0); MEAN PLATELET VOLUME 9.9 fL (7.4-10.4); MONOCYTES 15.1 % (2-11); NEUTROPHILS 71.3 % (40-80); PLATELET COUNT 246 10x3/uL (130-400); RBC 3.71 10x6/uL (4.20-6.10); RDW 19.5 % (11.5-14.5); WBC 10.6 10x3/uL (4.8-10.8)
[2018-01-06 06:08] LABS: ALBUMIN 2.6 g/dL (3.4-5.0); ANION GAP 15.6 mmol/L (8-16); BILIRUBIN - TOTAL 0.73 mg/dL (0.2-1.3); CARBON DIOXIDE 23.7 mmol/L (21.0-32.0); CREATININE - SERUM 2.8 mg/dL (0.6-1.3); MAGNESIUM - SERUM 1.7 mg/dL (1.8-2.4); POTASSIUM - SERUM 4.3 mmol/L (3.5-5.1); PROTEIN - SERUM 6.7 g/dL (6.4-8.2)
[2018-01-06 07:25] VITALS: BP 119/79
[2018-01-06 12:10] VITALS: BP 92/54
[2018-01-06 15:46] VITALS: BP 112/74
[2018-01-06 22:02] VITALS: BP 116/72
[2018-01-07 01:00] VITALS: BP 109/70
[2018-01-07 04:00] VITALS: BP 103/69
[2018-01-07 04:53] LABS: BASOPHILS 0.1 % (0-2); EOSINOPHILS 0.2 % (0-7); HEMATOCRIT 31.1 % (42.0-54.0); HEMOGLOBIN 9.8 g/dL (13.5-17.5); IMMATURE GRANULOCYTES 0.5 % (0-5); MCH 26.4 pg (26.0-34.0); MCHC 31.5 g/dL (31.0-37.0); MCV 83.8 fL (80.0-100.0); MEAN PLATELET VOLUME 9.8 fL (7.4-10.4); MONOCYTES 16.5 % (2-11); NEUTROPHILS 72.7 % (40-80); PLATELET COUNT 239 10x3/uL (130-400); RBC 3.71 10x6/uL (4.20-6.10); RDW 19.7 % (11.5-14.5); WBC 9.9 10x3/uL (4.8-10.8)
[2018-01-07 05:14] LABS: ALBUMIN 2.5 g/dL (3.4-5.0); ANION GAP 15.4 mmol/L (8-16); BILIRUBIN - TOTAL 0.62 mg/dL (0.2-1.3); CALCIUM 7.8 mg/dL (8.5-10.1); CARBON DIOXIDE 21.9 mmol/L (21.0-32.0); CREATININE - SERUM 2.4 mg/dL (0.6-1.3); MAGNESIUM - SERUM 1.8 mg/dL (1.8-2.4); POTASSIUM - SERUM 4.3 mmol/L (3.5-5.1); PROTEIN - SERUM 6.6 g/dL (6.4-8.2)
[2018-01-07 08:08] VITALS: BP 132/69
[2018-01-07 10:55] VITALS: BP 113/64
[2018-01-07] MEDS ORDERED: LEVAQUIN250 MG PO (15:16)
[2018-01-07] MEDS ORDERED: FLORAJEN3 CAPS460 MG PO (15:16)
[2018-01-07 15:58] VITALS: BP 127/79
== END 2018-01-07 16:10 | disposition home health service (06) | DRG 291 ==
LOC: D.ER 17:40 → D.M2 20:08 → OBSVTIME 20:08 → D.M2 01-03 15:54
PROVIDERS: Emergency Medicine; Internal Medicine Nephrology
DX: I13.0 Hypertensive heart and chronic kidney disease with heart failure and stage 1 through stage 4 chronic kidney disease, or unspecified chronic kidney disease (principal); J18.9 Pneumonia, unspecified organism; I50.23 Acute on chronic systolic (congestive) heart failure; N17.9 Acute kidney failure, unspecified; J44.0 Chronic obstructive pulmonary disease with (acute) lower respiratory infection; I24.8 Other forms of acute ischemic heart disease; F17.213 Nicotine dependence, cigarettes, with withdrawal; J44.1 Chronic obstructive pulmonary disease with (acute) exacerbation; E87.1 Hypo-osmolality and hyponatremia; K56.7 Ileus, unspecified; N18.3 Chronic kidney disease, stage 3 (moderate); I25.10 Atherosclerotic heart disease of native coronary artery without angina pectoris; I08.1 Rheumatic disorders of both mitral and tricuspid valves; I27.20 Pulmonary hypertension, unspecified; F14.90 Cocaine use, unspecified, uncomplicated; E78.5 Hyperlipidemia, unspecified; D50.9 Iron deficiency anemia, unspecified; Z91.19 Patient's noncompliance with other medical treatment and regimen; I42.9 Cardiomyopathy, unspecified

== ENCOUNTER 2018-01-19 14:34 | Observation (INO) | payer MEDICARE, MEDICAID ==
[~2018-01-19] VITALS: Ht 185.4 cm; Wt 73.8 kg
--- NOTE | ~2018-01-19 | EC ---
PATIENT:VIVIEN REYES SR DATE OF SERVICE: 01/19/18 SEX: M MEDICAL RECORD: [id number] DATE OF : 57 LOCATION:D. D.213 AGE OF PATIENT: 62 ADMISSION DATE: 01/19/18 REFERRING PHYSICIAN: INTERPRETING PHYSICIAN: SALBADOR GOMEZ MD ECHOCARDIOGRAM REPORT ECHO CHARGES 5 ECHO LIMITED Date: 01/20/18 CLINICAL DIAGNOSIS: CHF, ASSESS EF, LIMITED ECHOCARDIOGRAPHIC MEASUREMENTS (adult normal given) AC root (d.<3.7cm) cm LV Septum d (<1.2 cm> cm Valve Excursion cm LV Septum (systole) cm Left Atria (s.<4.0cm> cm LVPW d(<1.2cm) cm RV (d.<2.3cm) cm LVPW (sytole) cm LV diastole(<5.6CM) 7.3 cm MV E-F(>70mm/sec) cm LV systole 5.6 cm LVOT Diameter cm MV exc.(>10mm) cm Est.ejection fraction (50-75%) % DOPPLER: LVIT cm/sec A cm/sec E cm/sec LA cm/sec RVSP 57 mmHg LVOT cm/sec AOP1/2T m/s Asc. Ao cm/sec RVOT cm/sec RA cm/sec PA cm/sec AV Gradient Peak mmHg AV Mean mmHg AV Area cm MV Gradient Peak mmHg MV Mean mmHg MV Area cm COMMENTS: Imposer: Samira WHITMAN Unit Controller: Jacobo Gomez TAPE# PACS Pericardial Effusion N DATE OF SERVICE: 01/20/2018 DATE OF SERVICE: 01/20/2018 ECHOCARDIOGRAM FINDINGS: 1. Left ventricular chamber size is within normal limits. Left ventricular systolic function is preserved at 50%. 2. Left atrium is enlarged at 4.7 cm. Right atrium and right ventricle chamber ECHOCARDIOGRAM REPORT [id number] VIVIEN REYES SR sizes are moderately dilated. 3. Valvular structures have normal structure and motion. 4. Doppler interrogation reveals moderate mitral regurgitation, moderate to severe tricuspid regurgitation, no other valvular insufficiency or stenosis. Pulmonary systolic pressure is estimated at 57 mmHg. 5. No evidence of pericardial effusion or left ventricular thrombus. TRANSINT:[id number] Voice Confirmation ID: [id number] DOCUMENT ID: [id number] SALBADOR GOMEZ MD at 1059 CC: [id number] DICTATION DATE: 01/20/18 1157 TOOL GRINDING MACHINE OPERATOR: 01/20/18 1227 DIS IN 01/24/18 [place] [id number] [place] [address]
--- NOTE | ~2018-01-19 | MORECARE ---
CASE MANAGEMENT DISCHARGE SUMMARY PATIENT: VIVIEN REYES SR UNIT: [id number] ADM DATE: 01/19/18 AGE: 62 : 57 SEX: M ROOM/BED: D.2138 AUTHOR: CHARO SONG PHYSICIAN: REFERRING PHYSICIAN: SALBADOR SHEA MD DATE OF SERVICE: 01/27/18 Discharge Plan Patient Name: VIVIEN REYES [facility] [facility] 1955 Planned Disposition: Home Anticipated Discharge Date: 01/24/18 Discharge Date: 01/24/2018 Expected LOS: 5 Initial Reviewer: [email or web address] Initial Review Date: 01/27/2018 Generated: 01/27/18 12:48 pm Coverage Notice Reviewer: [email or web address] Hudson Lewis Notice Issued Date-Time: 01/20/2018 14:33 Notice Type: Medicare Outpatient Observation Notice Notice Delivered To: Patient Relationship to Patient: Self Lab Support Tech Name: Delivery Method: HAND - Hand Delivered Shae Days: Prior Verbal Notification: Recipient Understood Notice: Yes Recipient Signature: Yes Med Rec Note Co-signed by Attending: Coverage Notice Comment: Patient Name: VIVIEN REYES Page [id number] at 1149 All edits/amendments must be made on the electronic document DICTATION DATE: 01/27/18 1148 ARC WELDING MACHINE OPERATOR: LEIGH 01/27/18 1148 RPT#: [id number] DC DATE:01/24/18 STATUS: DIS IN [facility] [address] [place] [address] END OF REPORT
--- NOTE | ~2018-01-19 | DS ---
PATIENT:VIVIEN CHASE SR :57 MEDICAL RECORD: [id number] DISCHARGE SUMMARY ADMISSION DATE: 01/19/18 DISCHARGE DATE: 01/24/18 DIAGNOSES: 1. Congestive heart failure, chronic systolic dysfunction. 2. Cardiomyopathy, ischemic. 3. Coronary artery disease. 4. Smoking history. 5. Chronic obstructive pulmonary disease. 6. Hypertension. HISTORY OF PRESENT ILLNESS: Mr. Chase presents with decompensated congestive heart failure, received IV Dobutrex as well as diuretics, had total clearing of his heart failure symptomatology. He was discharged home with no changes in his medications. Will follow up with [facility] in 1 month. TRANSINT:[id number] Voice Confirmation ID: [id number] DOCUMENT ID: [id number] SALBADOR SHEA MD at 1059 CC: [id number] DICTATION DATE: 01/24/18840 ZUMBA INSTRUCTOR: 01/24/18 0848 DIS IN 01/24/18 [place] [id number] [place] [address]
[~2018-01-19 14:34] MED LIST changes: +ALBUTEROL SULF8.5 GM INH; +IPRAT-ALBUT 0.5-3 ML UPD; +LEVAQUIN250 MG PO; +OMEPRAZOLE20 M1 PO; +POTASSIUM CHLO10 ME1 PO
[2018-01-19 17:29] VITALS: BP 112/69; BMI 23.9
[2018-01-19 18:39] LABS: ALBUMIN 2.7 g/dL (3.4-5.0); ANION GAP 12.6 mmol/L (8-16); BILIRUBIN - TOTAL 0.68 mg/dL (0.2-1.3); CALCIUM 8.7 mg/dL (8.5-10.1); CARBON DIOXIDE 28.3 mmol/L (21.0-32.0); CREATININE - SERUM 1.7 mg/dL (0.6-1.3); POTASSIUM - SERUM 3.9 mmol/L (3.5-5.1); PROTEIN - SERUM 6.8 g/dL (6.4-8.2)
[2018-01-20 06:04] LABS: BASOPHILS 0 % (0-2); EOSINOPHILS 0 % (0-7); HEMOGLOBIN 8.7 g/dL (13.5-17.5); IMMATURE GRANULOCYTES 0.3 % (0-5); LYMPHOCYTES 5.1 % (15-50); MCH 26.4 pg (26.0-34.0); MCHC 31.1 g/dL (31.0-37.0); MCV 84.8 fL (80.0-100.0); MEAN PLATELET VOLUME 9.5 fL (7.4-10.4); MONOCYTES 0.4 % (2-11); NEUTROPHILS 94.2 % (40-80); RDW 21.2 % (11.5-14.5); WBC 9.7 10x3/uL (4.8-10.8)
[2018-01-20 06:24] LABS: ANION GAP 14.3 mmol/L (8-16); CALCIUM 8.8 mg/dL (8.5-10.1); CARBON DIOXIDE 26.5 mmol/L (21.0-32.0); CREATININE - SERUM 1.5 mg/dL (0.6-1.3); POTASSIUM - SERUM 3.8 mmol/L (3.5-5.1)
[2018-01-20 06:41] LABS: PLATELET COUNT 186 10x3/uL (130-400)
[2018-01-20 08:16] VITALS: BP 140/89
[2018-01-20 11:19] VITALS: BP 125/67
[2018-01-20 13:42] VITALS: Ht 185.4 cm; Wt 73.8 kg
[2018-01-20 15:28] VITALS: BP 132/66
[2018-01-20 20:00] VITALS: BP 112/58
[2018-01-21] VITALS: BP 112/58
[2018-01-21 04:00] VITALS: BP 130/83
[2018-01-21 08:05] VITALS: BP 124/82
[2018-01-21 11:59] VITALS: BP 120/79
[2018-01-21 14:53] VITALS: BP 111/63
[2018-01-21 21:00] VITALS: BP 126/83
[2018-01-22] VITALS: BP 129/74
[2018-01-22 04:00] VITALS: BP 116/78
[2018-01-22 07:53] VITALS: BP 125/74
[2018-01-22 10:58] VITALS: BP 99/50
[2018-01-22 16:03] VITALS: BP 110/75
[2018-01-22 20:45] VITALS: BP 112/63
[2018-01-23 01:15] VITALS: BP 122/76
[2018-01-23 04:30] VITALS: BP 145/64
[2018-01-23 08:26] VITALS: BP 118/62
[2018-01-23 13:39] VITALS: BP 114/71
[2018-01-23 17:13] VITALS: BP 122/65
[2018-01-23 20:23] VITALS: BP 122/59
[2018-01-24 01:20] VITALS: BP 121/62
[2018-01-24 05:15] VITALS: BP 119/61
[2018-01-24 08:22] VITALS: BP 146/69
== END 2018-01-24 10:32 | disposition home or self-care (01) ==
LOC: OBSVTIME 14:34 → D.M2 14:34 → D.SDCHOLD 14:34 → D.M2 16:04
PROVIDERS: Internal Medicine Interventional Cardiology
DX: I11.0 Hypertensive heart disease with heart failure (principal); I50.23 Acute on chronic systolic (congestive) heart failure; I25.10 Atherosclerotic heart disease of native coronary artery without angina pectoris; Z98.61 Coronary angioplasty status; E78.5 Hyperlipidemia, unspecified; I73.9 Peripheral vascular disease, unspecified; I25.5 Ischemic cardiomyopathy; J44.9 Chronic obstructive pulmonary disease, unspecified; R79.89 Other specified abnormal findings of blood chemistry

== ENCOUNTER 2018-02-20 18:48 | Inpatient (IN) | payer MEDICARE, MEDICAID ==
[~2018-02-20] VITALS: Ht 185.4 cm; Wt 79.1 kg
[2018-02-20 19:16] LABS: BASOPHILS 0.4 % (0-2); EOSINOPHILS 3.8 % (0-7); HEMATOCRIT 32.3 % (42.0-54.0); IMMATURE GRANULOCYTES 0.4 % (0-5); LYMPHOCYTES 15.1 % (15-50); MCH 26.3 pg (26.0-34.0); MEAN PLATELET VOLUME 9.1 fL (7.4-10.4); MONOCYTES 14.1 % (2-11); NEUTROPHILS 66.2 % (40-80); RDW 19.7 % (11.5-14.5); WBC 9.8 10x3/uL (4.8-10.8)
[2018-02-20 19:21] LABS: PLATELET COUNT 276 10x3/uL (130-400)
[2018-02-20 19:36] LABS: ANION GAP 16.1 mmol/L (8-16); BILIRUBIN - TOTAL 1.05 mg/dL (0.2-1.3); CALCIUM 9.1 mg/dL (8.5-10.1); CARBON DIOXIDE 19.4 mmol/L (21.0-32.0); CREATININE - SERUM 1.8 mg/dL (0.6-1.3); POTASSIUM - SERUM 4.5 mmol/L (3.5-5.1); PROTEIN - SERUM 7.8 g/dL (6.4-8.2)
[2018-02-20 20:58] VITALS: BP 123/81
[2018-02-20 23:06] LABS: APPEARANCE CLEAR (CLEAR); BACTERIA NONE SEEN /hpf (NONE SEEN); BILIRUBIN NEGATIVE (NEGATIVE); COLOR YELLOW (YELLOW); EPITHELIAL CELLS NSEEN /hpf (0-5); GLUCOSE NEGATIVE (NEGATIVE); KETONE NEGATIVE (NEGATIVE); NITRITE NEGATIVE (NEGATIVE); PROTEIN 1+ mg/dL (NEGATIVE); RED CELLS - URINE 0-5 /hpf (0-5); WHITE CELLS - URINE NSEEN /hpf (0-5)
[2018-02-21] VITALS (21 sets, daily range): BP systolic 104–149; BP diastolic 62–89; Ht 185.4 cm; Wt 79.1 kg
[2018-02-21 05:51] LABS: BASOPHILS 0.1 % (0-2); HEMATOCRIT 34.6 % (42.0-54.0); HEMOGLOBIN 10.4 g/dL (13.5-17.5); IMMATURE GRANULOCYTES 0.5 % (0-5); MCH 26.4 pg (26.0-34.0); MCHC 30.1 g/dL (31.0-37.0); MEAN PLATELET VOLUME 9.6 fL (7.4-10.4); MONOCYTES 10.9 % (2-11); NEUTROPHILS 74.5 % (40-80); PLATELET COUNT 292 10x3/uL (130-400); RBC 3.94 10x6/uL (4.20-6.10); RDW 20.2 % (11.5-14.5)
[2018-02-21 06:01] LABS: MCV 87.8 fL (80.0-100.0); WBC 18.8 10x3/uL (4.8-10.8)
[2018-02-21 06:05] LABS: ALBUMIN 3.2 g/dL (3.4-5.0); BILIRUBIN - TOTAL 1.28 mg/dL (0.2-1.3); CALCIUM 8.9 mg/dL (8.5-10.1); CARBON DIOXIDE 21.3 mmol/L (21.0-32.0); PHOSPHOROUS 6.1 mg/dL (2.5-4.9); PROTEIN - SERUM 8.3 g/dL (6.4-8.2)
[2018-02-21 06:29] LABS: POTASSIUM - SERUM 5.3 mmol/L (3.5-5.1)
[2018-02-21 07:52] LABS: INR 1.41 (0.85-1.17); PROTIME 16.7 SECONDS (11.6-15.0)
[2018-02-21 13:38] LABS: UDS - AMPHET NEGATIVE QUAL (NEGATIVE); UDS - BARB NEGATIVE QUAL (NEGATIVE); UDS - BENZO NEGATIVE QUAL (NEGATIVE); UDS - COCAINE POSITIVE QUAL (NEGATIVE); UDS - OPIATE POSITIVE QUAL (NEGATIVE); UDS - PCP NEGATIVE QUAL (NEGATIVE); UDS - THC NEGATIVE QUAL (NEGATIVE)
--- NOTE | 2018-02-21 19:16 | MORECARE ---
CASE MANAGEMENT DISCHARGE SUMMARY PATIENT: VIVIEN REYES UNIT: [id number] ADM DATE: 02/20/18 AGE: 62 : 57 SEX: M ROOM/BED: D.2308 AUTHOR: CHARO SONG PHYSICIAN: REFERRING PHYSICIAN: PATTI WELDON MD DATE OF SERVICE: 02/21/18 Discharge Plan Patient Name: VIVIEN REYES [facility] [facility] 1955 Planned Disposition: Anticipated Discharge Date: Discharge Date: Expected LOS: Initial Reviewer: [email or web address] Initial Review Date: 02/21/2018 Generated: 02/21/18 8:16 pm Comments DCP- Discharge Planning Updated by [id number]: Jeannie Mccray on 02/21/18 6:[address] CM attempted visit with patient but he is currently on vent. No family available at this time. CM will continue to follow and assist as needed with discharge planning / needs. Patient Name: VIVIEN REYES Page [phone] at 1916 All edits/amendments must be made on the electronic document DICTATION DATE: 02/21/181915 PRECISION CROP MANAGER: LEIGH 02/21/181915 RPT#: [id number] DC DATE: STATUS: ADM IN [facility] [address] [place] [address] END OF REPORT
[2018-02-22] VITALS (24 sets, daily range): BP systolic 94–123; BP diastolic 60–79
[2018-02-22 05:01] LABS: HEMATOCRIT 30.3 % (42.0-54.0); HEMOGLOBIN 9.4 g/dL (13.5-17.5); MCH 26.1 pg (26.0-34.0); MCV 84.2 fL (80.0-100.0); MEAN PLATELET VOLUME 9.4 fL (7.4-10.4); PLATELET COUNT 227 10x3/uL (130-400); RDW 19.7 % (11.5-14.5); WBC 21.2 10x3/uL (4.8-10.8)
[2018-02-22 05:14] LABS: % SATURATION 3 % (15-55); INR 1.56 (0.85-1.17); IRON 10 ug/dl (35-150); PROTIME 18.1 SECONDS (11.6-15.0); TOTAL IRON BIND CAPACITY 260 ug/dl (260-445); UNSAT IRON BIND CAPACITY 250 ug/dl (150-375)
[2018-02-22 05:19] LABS: ALBUMIN 2.4 g/dL (3.4-5.0); BILIRUBIN - TOTAL 1.04 mg/dL (0.2-1.3); CALCIUM 8.1 mg/dL (8.5-10.1); CARBON DIOXIDE 22.1 mmol/L (21.0-32.0); CREATININE - SERUM 2.3 mg/dL (0.6-1.3); MAGNESIUM - SERUM 1.6 mg/dL (1.8-2.4); PROTEIN - SERUM 6.6 g/dL (6.4-8.2)
[2018-02-22 05:48] LABS: ANION GAP 16.9 mmol/L (8-16); PHOSPHOROUS 3.6 mg/dL (2.5-4.9); TROPONIN-I 0.709 ng/mL (0.000-0.060)
[2018-02-22 07:25] LABS: BURR CELLS OCC; CRENATED CELLS OCC; HYPOCHROMASIA OCC; LYMPHOCYTES 11 % (15-50); MONOCYTES 6 % (2-11); NEUTROPHILS 71 % (40-80); PLATELET ESTIMATE NORMAL
[2018-02-23] VITALS (24 sets, daily range): BP systolic 106–132; BP diastolic 62–89
[2018-02-23 04:19] LABS: BASOPHILS 0.1 % (0-2); EOSINOPHILS 0.6 % (0-7); HEMATOCRIT 29.5 % (42.0-54.0); HEMOGLOBIN 9.2 g/dL (13.5-17.5); IMMATURE GRANULOCYTES 0.4 % (0-5); LYMPHOCYTES 5.9 % (15-50); MCH 26.1 pg (26.0-34.0); MCHC 31.2 g/dL (31.0-37.0); MCV 83.6 fL (80.0-100.0); MEAN PLATELET VOLUME 9.6 fL (7.4-10.4); MONOCYTES 11.3 % (2-11); NEUTROPHILS 81.7 % (40-80); PLATELET COUNT 222 10x3/uL (130-400); RBC 3.53 10x6/uL (4.20-6.10); RDW 19.9 % (11.5-14.5); WBC 17.3 10x3/uL (4.8-10.8)
[2018-02-23 04:42] LABS: ALBUMIN 2.2 g/dL (3.4-5.0); ANION GAP 16.3 mmol/L (8-16); BILIRUBIN - TOTAL 1.08 mg/dL (0.2-1.3); CALCIUM 8.1 mg/dL (8.5-10.1); CARBON DIOXIDE 22.4 mmol/L (21.0-32.0); CREATININE - SERUM 1.9 mg/dL (0.6-1.3); PHOSPHOROUS 3.5 mg/dL (2.5-4.9); POTASSIUM - SERUM 3.7 mmol/L (3.5-5.1); PROTEIN - SERUM 6.6 g/dL (6.4-8.2)
[2018-02-24] VITALS (24 sets, daily range): BP systolic 100–143; BP diastolic 68–96
[2018-02-24 04:22] LABS: BASOPHILS 0.1 % (0-2); EOSINOPHILS 1.9 % (0-7); HEMATOCRIT 30.5 % (42.0-54.0); HEMOGLOBIN 9.4 g/dL (13.5-17.5); IMMATURE GRANULOCYTES 0.4 % (0-5); LYMPHOCYTES 5.5 % (15-50); MCH 25.8 pg (26.0-34.0); MCHC 30.8 g/dL (31.0-37.0); MCV 83.8 fL (80.0-100.0); MONOCYTES 8.3 % (2-11); NEUTROPHILS 83.8 % (40-80); PLATELET COUNT 232 10x3/uL (130-400); RBC 3.64 10x6/uL (4.20-6.10); RDW 19.8 % (11.5-14.5); WBC 17.2 10x3/uL (4.8-10.8)
[2018-02-24 05:24] LABS: ALBUMIN 2.1 g/dL (3.4-5.0); ANION GAP 13.7 mmol/L (8-16); BILIRUBIN - TOTAL 0.97 mg/dL (0.2-1.3); CALCIUM 8.2 mg/dL (8.5-10.1); CARBON DIOXIDE 24.8 mmol/L (21.0-32.0); CREATININE - SERUM 1.5 mg/dL (0.6-1.3); MAGNESIUM - SERUM 1.9 mg/dL (1.8-2.4); PHOSPHOROUS 3.2 mg/dL (2.5-4.9); POTASSIUM - SERUM 3.5 mmol/L (3.5-5.1); PROTEIN - SERUM 6.7 g/dL (6.4-8.2)
[2018-02-25] VITALS (24 sets, daily range): BP systolic 73–144; BP diastolic 62–103
[2018-02-25 06:39] LABS: BASOPHILS 0.1 % (0-2); EOSINOPHILS 3.9 % (0-7); HEMATOCRIT 32.8 % (42.0-54.0); HEMOGLOBIN 10.1 g/dL (13.5-17.5); IMMATURE GRANULOCYTES 0.3 % (0-5); LYMPHOCYTES 5.2 % (15-50); MCH 25.9 pg (26.0-34.0); MCHC 30.8 g/dL (31.0-37.0); MCV 84.1 fL (80.0-100.0); MEAN PLATELET VOLUME 9.1 fL (7.4-10.4); MONOCYTES 10.1 % (2-11); NEUTROPHILS 80.4 % (40-80); PLATELET COUNT 269 10x3/uL (130-400); RDW 19.8 % (11.5-14.5); WBC 15.5 10x3/uL (4.8-10.8)
[2018-02-25 06:40] LABS: ALBUMIN 2.1 g/dL (3.4-5.0); ANION GAP 14.9 mmol/L (8-16); BILIRUBIN - TOTAL 1.1 mg/dL (0.2-1.3); CALCIUM 8.3 mg/dL (8.5-10.1); CARBON DIOXIDE 25.6 mmol/L (21.0-32.0); CREATININE - SERUM 1.2 mg/dL (0.6-1.3); POTASSIUM - SERUM 3.5 mmol/L (3.5-5.1); PROTEIN - SERUM 6.9 g/dL (6.4-8.2)
--- NOTE | 2018-02-25 10:25 | EC ---
PATIENT:VIVIEN REYES SR DATE OF SERVICE: 02/20/18 SEX: M MEDICAL RECORD: [id number] DATE OF : 57 LOCATION:[facility] AGE OF PATIENT: 62 ADMISSION DATE: 02/20/18 REFERRING PHYSICIAN: INTERPRETING PHYSICIAN: SALBADOR GOMEZ MD ECHOCARDIOGRAM REPORT ECHO CHARGES 4 ECHO COMPLETE Date: 02/21/18 CLINICAL DIAGNOSIS: CHF ECHOCARDIOGRAPHIC MEASUREMENTS (adult normal given) AC root (d.<3.7cm) 0 cm LV Septum d (<1.2 cm> 0 cm Valve Excursion 0 cm LV Septum (systole) 0 cm Left Atria (s.<4.0cm> 0 cm LVPW d(<1.2cm) 0 cm RV (d.<2.3cm) 0 cm LVPW (sytole) 0 cm LV diastole(<5.6CM) 0 cm MV E-F(>70mm/sec) 0 cm LV systole 0 cm LVOT Diameter 0 cm MV exc.(>10mm) 0 cm Est.ejection fraction (50-75%) % DOPPLER: LVIT 0 cm/sec A 0 cm/sec E 0 cm/sec LA 0 cm/sec RVSP 41.3 mmHg LVOT 0 cm/sec AOP1/2T 0 m/s Asc. Ao 0 cm/sec RVOT 0 cm/sec RA 0 cm/sec PA 0 cm/sec AV Gradient Peak 0 mmHg AV Mean 0 mmHg AV Area 0 cm MV Gradient Peak 0 mmHg MV Mean 0 mmHg MV Area 0 cm COMMENTS: LIMITED STUDY (2-D,COLOR,DOPPLER) Jewel Sawyer: Jacobo TOURE User Support Analyst Supervisor: 1 Dr. Gomez TAPE# PACS Pericardial Effusion N DATE OF SERVICE: 02/21/2018 Echocardiogram FINDINGS: 1. Left ventricular chamber size is dilated. Left ventricular systolic function is markedly reduced, overall ejection fraction 25%. 2. Left atrium, right atrium, and right ventricle chamber sizes are dilated giving 4-chamber dilatation. 3. Valvular structures have normal structure and motion. ECHOCARDIOGRAM REPORT [id number] VIVIEN REYES SR 4. Doppler interrogation reveals moderate to severe tricuspid regurgitation, moderate to severe mitral regurgitation. No other valvular insufficiency or stenosis. Pulmonary systolic pressure is estimated at 41 mmHg. 5. No evidence of pericardial effusion or left ventricular thrombus. TRANSINT:[id number] Voice Confirmation ID: [id number] DOCUMENT ID: [id number] SALBADOR GOMEZ MD at 1025 CC: [id number] DICTATION DATE: 02/21/18 170 PSYCHOLOGIST EDUCATIONAL: 02/22/18 0040 ADM IN [facility] [address] [place] [address]
--- NOTE | 2018-02-25 17:14 | MORECARE ---
CASE MANAGEMENT DISCHARGE SUMMARY PATIENT: VIVIEN REYES UNIT: [id number] ADM DATE: 02/20/18 AGE: 62 : 57 SEX: M ROOM/BED: D.2308 AUTHOR: CHARO SONG PHYSICIAN: REFERRING PHYSICIAN: PATTI WELDON MD DATE OF SERVICE: 02/25/18 Discharge Plan Patient Name: VIVIEN REYES Facility: [facility]:[place] : 1955 Planned Disposition: Anticipated Discharge Date: Discharge Date: Expected LOS: Initial Reviewer: [email or web address] Initial Review Date: 02/21/2018 Generated: 02/25/18 6:13 pm Comments DCP- Discharge Planning Updated by [email or web address]: Jeannie Mccray on 02/25/18 4:[address] CM attempted to speak with patient regarding discharge planning. Patient requested for CM to come back at a later time. He stated he didn't feel very well at this time. He also requested CM not to call his brother to obtain his information. CM will continue to follow and assist with discharge planning / needs. DCP- Discharge Planning Updated by [id number]: Jeannie Mccray on 02/21/18 6:[address] CM attempted visit with patient but he is currently on vent. No family available at this time. CM will continue to follow and assist as needed with discharge planning / needs. Last DP export: 02/21/18 6:16 p Patient Name: VIVIEN REYES Page 18145 at 1714 All edits/amendments must be made on the electronic document DICTATION DATE: 02/25/181712 RETURNED GOODS INSPECTOR: LEIGH 02/25/181712 RPT#: [id number] DC DATE: STATUS: ADM IN [facility] [address] [place] [address] END OF REPORT
[2018-02-26] VITALS (12 sets, daily range): BP systolic 102–129; BP diastolic 56–73
[2018-02-26 07:29] LABS: BASOPHILS 0.1 % (0-2); HEMATOCRIT 29.9 % (42.0-54.0); HEMOGLOBIN 9.3 g/dL (13.5-17.5); IMMATURE GRANULOCYTES 0.3 % (0-5); LYMPHOCYTES 14.8 % (15-50); MCH 26.1 pg (26.0-34.0); MCHC 31.1 g/dL (31.0-37.0); MEAN PLATELET VOLUME 8.4 fL (7.4-10.4); MONOCYTES 5.6 % (2-11); NEUTROPHILS 75.2 % (40-80); RBC 3.56 10x6/uL (4.20-6.10); RDW 19.2 % (11.5-14.5); WBC 13.7 10x3/uL (4.8-10.8)
[2018-02-26 07:39] LABS: PLATELET COUNT 215 10x3/uL (130-400)
[2018-02-26 07:42] LABS: ANION GAP 11.3 mmol/L (8-16); BILIRUBIN - TOTAL 0.56 mg/dL (0.2-1.3); CALCIUM 8.4 mg/dL (8.5-10.1); CARBON DIOXIDE 25.9 mmol/L (21.0-32.0); CREATININE - SERUM 1.3 mg/dL (0.6-1.3); POTASSIUM - SERUM 3.2 mmol/L (3.5-5.1); PROTEIN - SERUM 6.7 g/dL (6.4-8.2)
[2018-02-26 19:07] LABS: ACID FAST SMEAR Negative (()); AFB SPECIMEN PROCESSING Concentration (())
[2018-02-27 00:30] VITALS: BP 123/73
[2018-02-27 04:30] VITALS: BP 112/65
[2018-02-27 05:12] LABS: BASOPHILS 0.1 % (0-2); EOSINOPHILS 3.8 % (0-7); HEMATOCRIT 29.2 % (42.0-54.0); HEMOGLOBIN 9.2 g/dL (13.5-17.5); IMMATURE GRANULOCYTES 0.5 % (0-5); LYMPHOCYTES 13.5 % (15-50); MCH 26.4 pg (26.0-34.0); MCHC 31.5 g/dL (31.0-37.0); MCV 83.9 fL (80.0-100.0); MEAN PLATELET VOLUME 8.6 fL (7.4-10.4); MONOCYTES 5.7 % (2-11); NEUTROPHILS 76.4 % (40-80); PLATELET COUNT 219 10x3/uL (130-400); RBC 3.48 10x6/uL (4.20-6.10); RDW 19.4 % (11.5-14.5); WBC 16.6 10x3/uL (4.8-10.8)
[2018-02-27 05:29] LABS: INR 1.26 (0.85-1.17); PROTIME 15.3 SECONDS (11.6-15.0)
[2018-02-27 05:31] LABS: ALBUMIN 2.2 g/dL (3.4-5.0); ANION GAP 9.6 mmol/L (8-16); BILIRUBIN - TOTAL 0.92 mg/dL (0.2-1.3); CALCIUM 8.5 mg/dL (8.5-10.1); CREATININE - SERUM 1.4 mg/dL (0.6-1.3); MAGNESIUM - SERUM 1.7 mg/dL (1.8-2.4); PHOSPHOROUS 2.1 mg/dL (2.5-4.9); POTASSIUM - SERUM 3.6 mmol/L (3.5-5.1); PROTEIN - SERUM 7.1 g/dL (6.4-8.2)
[2018-02-27 08:38] VITALS: BP 105/75
[2018-02-27 12:19] VITALS: BP 120/80
[2018-02-27 15:42] VITALS: BP 92/51
[2018-02-27 20:30] VITALS: BP 119/75
[2018-02-28] VITALS (13 sets, daily range): BP systolic 107–148; BP diastolic 61–82
[2018-02-28 05:41] LABS: HEMATOCRIT 28.8 % (42.0-54.0); HEMOGLOBIN 8.9 g/dL (13.5-17.5); IMMATURE GRANULOCYTES 0.6 % (0-5); MCH 26.2 pg (26.0-34.0); MCHC 30.9 g/dL (31.0-37.0); MCV 84.7 fL (80.0-100.0); MEAN PLATELET VOLUME 9.4 fL (7.4-10.4); PLATELET COUNT 260 10x3/uL (130-400); RDW 19.4 % (11.5-14.5); WBC 16.1 10x3/uL (4.8-10.8)
[2018-02-28 06:03] LABS: INR 1.22 (0.85-1.17); PROTIME 14.9 SECONDS (11.6-15.0)
[2018-02-28 06:04] LABS: APTT 41.5 SECONDS (22.8-39.4)
[2018-02-28 06:14] LABS: ANION GAP 12.9 mmol/L (8-16); CALCIUM 8.4 mg/dL (8.5-10.1); CARBON DIOXIDE 28.1 mmol/L (21.0-32.0); CREATININE - SERUM 1.6 mg/dL (0.6-1.3); MAGNESIUM - SERUM 1.8 mg/dL (1.8-2.4); PHOSPHOROUS 2.4 mg/dL (2.5-4.9); PROTEIN - SERUM 7.3 g/dL (6.4-8.2)
[2018-02-28 06:39] LABS: EOSINOPHILS 1 % (0-7); NEUTROPHILS 84 % (40-80); PLATELET ESTIMATE NORMAL; PLATELET MORPHOLOGY NORMAL PLT MORPH
[2018-02-28 06:46] LABS: LYMPHOCYTES 7 % (15-50); MONOCYTES 5 % (2-11)
[2018-02-28 07:25] LABS: BASOPHILS 0 % (0-2)
[2018-02-28 13:01] LABS: EOS BF 0 %; MACROPHAGES BF 0 %; MESOTHELIALS BF 0 %; NEUT - BF 0 %
[2018-02-28 13:04] LABS: PROTEIN - BODY FLUID 2.6 G/DL
[2018-02-28 13:13] LABS: FUNGUS STAIN Final report (())
[2018-03-01] VITALS: BP 103/62
[2018-03-01 04:00] VITALS: BP 126/80
[2018-03-01 05:50] LABS: BASOPHILS 0.2 % (0-2); EOSINOPHILS 5.1 % (0-7); HEMATOCRIT 29.2 % (42.0-54.0); HEMOGLOBIN 8.9 g/dL (13.5-17.5); IMMATURE GRANULOCYTES 0.5 % (0-5); LYMPHOCYTES 6.4 % (15-50); MCHC 30.5 g/dL (31.0-37.0); MCV 85.4 fL (80.0-100.0); MEAN PLATELET VOLUME 9.3 fL (7.4-10.4); MONOCYTES 11.8 % (2-11); PLATELET COUNT 285 10x3/uL (130-400); RBC 3.42 10x6/uL (4.20-6.10); RDW 19.4 % (11.5-14.5); WBC 14.6 10x3/uL (4.8-10.8)
[2018-03-01 06:19] LABS: ALBUMIN 2.3 g/dL (3.4-5.0); BILIRUBIN - TOTAL 0.78 mg/dL (0.2-1.3); CALCIUM 8.7 mg/dL (8.5-10.1); CARBON DIOXIDE 28.2 mmol/L (21.0-32.0); CREATININE - SERUM 1.9 mg/dL (0.6-1.3); PROTEIN - SERUM 7.2 g/dL (6.4-8.2)
[2018-03-01 06:26] LABS: POTASSIUM - SERUM 5.2 mmol/L (3.5-5.1)
[2018-03-01 08:22] VITALS: BP 135/63
[2018-03-01 11:24] VITALS: BP 114/68
--- NOTE | 2018-03-01 13:04 | MORECARE ---
CASE MANAGEMENT DISCHARGE SUMMARY PATIENT: VIVIEN REYES UNIT: [id number] ADM DATE: 02/20/18 AGE: 62 : 57 SEX: M ROOM/BED: D.9453 AUTHOR: CHARO SONG PHYSICIAN: REFERRING PHYSICIAN: PATTI WELDON MD DATE OF SERVICE: 03/01/18 Discharge Plan Patient Name: VIVIEN REYES Facility: [facility]:[place] : 1955 Planned Disposition: Home Anticipated Discharge Date: 03/02/18 Discharge Date: Expected LOS: 10 Initial Reviewer: [email or web address] Initial Review Date: 02/21/2018 Generated: 03/01/18 2:04 pm Comments DCP- Discharge Planning Updated by [email or web address]: Jeannie Mccray on 02/25/18 4:[address] CM attempted to speak with patient regarding discharge planning. Patient requested for CM to come back at a later time. He stated he didn't feel very well at this time. He also requested CM not to call his brother to obtain his information. CM will continue to follow and assist with discharge planning / needs. DCP- Discharge Planning Updated by [id number]: Jeannie Mccray on 02/21/18 6:[address] CM attempted visit with patient but he is currently on vent. No family available at this time. CM will continue to follow and assist as needed with discharge planning / needs. Last DP export: 02/25/18 4:13 p Patient Name: VIVIEN REYES Page [phone] at 1304 All edits/amendments must be made on the electronic document DICTATION DATE: 03/01/18 1303 SALESPERSON SHOES: LEIGH 03/01/18 1303 RPT#: [id number] DC DATE: STATUS: ADM IN [facility] [address] [place] [address] END OF REPORT
--- NOTE | 2018-03-01 13:13 | MORECARE ---
CASE MANAGEMENT DISCHARGE SUMMARY PATIENT: VIVIEN REYES SR UNIT: [id number] ADM DATE: 02/20/18 AGE: 62 : 57 SEX: M ROOM/BED: D.8833 AUTHOR: NOHEMI,DOC PHYSICIAN: REFERRING PHYSICIAN: PATTI WELDON MD DATE OF SERVICE: 03/01/18 Discharge Plan Patient Name: VIVIEN REYES [facility] : 1955 Planned Disposition: Home Anticipated Discharge Date: 03/02/18 Discharge Date: Expected LOS: 10 Initial Reviewer: [email or web address] Initial Review Date: 02/21/2018 Generated: 03/01/18 2:13 pm Comments DCP- Discharge Planning Updated by [email or web address]: Jeannie Mccray on 02/25/18 4:[address] CM attempted to speak with patient regarding discharge planning. Patient requested for CM to come back at a later time. He stated he didn't feel very well at this time. He also requested CM not to call his brother to obtain his information. CM will continue to follow and assist with discharge planning / needs. DCP- Discharge Planning Updated by [email or web address]: Jeannie Mccray on 02/21/18 6:[address] CM attempted visit with patient but he is currently on vent. No family available at this time. CM will continue to follow and assist as needed with discharge planning / needs. DCPIA - Discharge Planning Initial Assessment Updated by [email or web address]: Robel Brown on 03/01/18 1:11 pm * Is the patient Alert and Oriented? Yes * How many steps to enter\exit or inside your home? NONE * PCP DR. HALL * Pharmacy [facility] * Preadmission Environment Home with Family * ADLs Independent * Equipment Cane Oxygen * Other Equipment HOME OXYGEN ONLY - [facility] * List name and contact numbers for known caregivers / representatives who currently or will assist patient after discharge: ALESIA UNKNOWN, FRIEND, CLIVE UNKNOWN, FRIEND, * Verbal permission to speak to the caregivers and representatives has been obtained from the patient. No * Community resources currently utilized None * Please name any agencies selected above. NONE * Additional services required to return to the preadmission environment? No * Can the patient safely return to the preadmission environment? Yes * Has this patient been hospitalized within the prior 30 days at any hospital? No Last DP export: 03/01/18 12:04 Patient Name: VIVIEN REYES Page [phone] at 1313 All edits/amendments must be made on the electronic document DICTATION DATE: 03/01/18 131 TURBINE TECHNICIAN: LEIGH 03/01/18 131 RPT#: [id number] DC DATE: STATUS: ADM IN [facility] [address] [place] [address] END OF REPORT
--- NOTE | 2018-03-01 13:23 | MORECARE ---
CASE MANAGEMENT DISCHARGE SUMMARY PATIENT: VIVIEN REYES UNIT: [id number] ADM DATE: 02/20/18 AGE: 62 : 57 SEX: M ROOM/BED: D.2292 AUTHOR: CHARO SONG PHYSICIAN: REFERRING PHYSICIAN: PATTI WELDON MD DATE OF SERVICE: 03/01/18 Discharge Plan Patient Name: VIVIEN REYES Facility: [facility]:[place] : 1955 Planned Disposition: Home Anticipated Discharge Date: 03/02/18 Discharge Date: Expected LOS: 10 Initial Reviewer: [email or web address] Initial Review Date: 02/21/2018 Generated: 03/01/18 2:23 pm Comments DCP- Discharge Planning Updated by [email or web address]: Robel Brown on 03/01/18 12:[address] Patient Name: VIVIEN REYES Admission Status: ER Accout number: [id number] Admission Date: 02-20-2018 : 1955 Admission Diagnosis:ACUTE PANCREATITIS WITHOUT NECROSIS OR INFECTION, UNSP Attending: PATTI WELDON Current LOS: 9 Anticipated DC Date: 03-02-2018 Planned Disposition: Home Primary Insurance: [facility] MEDICARE SOLUTIONS Discharge Planning Comments: CM MET WITH PT IN ROOM TO DISCUSS DISCHARGE PLANNING AND NEEDS. PT REPORTS LIVING AT HOME INDEPENDENTLY WITH FRIENDS WHO ASSIST WITH TRANSPORTATION "ANYWHERE I WANT TO GO". PT HAS A CANE AND HOME OXYGEN FROM [facility]. PT HAS NO OUTSIDE SERVICES ASSISTING IN THE HOME. CM DISCUSSED AVAILABILITY OF HOME HEALTH, REHAB SERVICES AND MEDICAL EQUIPMENT. PT DENIES DISCHARGE NEEDS, REPORTS HIS FRIEND WILL PICK HIM UP FOR DISCHARGE HOME. IMPORTANT MESSAGE FROM MEDICARE PROVIDED AND EXPLAINED. CM EXPLAINED THE BENEFITS OF HOME HEALTH AND THAT HOME HEALTH MAY HELP KEEP PT FROM READMISSION TO THE HOSPITAL. PT DECLINES HOME HEALTH, REPORTS HIS FRIENDS, ALESIA AND CLIVE, TAKE GOOD CARE OF HIM AND HE DOES NOT WANT HOME HEALTH. CM EXPLAINED TO PT HOW TO CONTACT HIS PRIMARY CARE DOCTOR TO ARRANGE HOME HEALTH IF PT CHANGES MIND AFTER GETTING HOME. PT REPORTS UNDERSTANDING. PT PLANS TO DISCHARGE HOME WITH FRIENDS, REFUSED HOME HEALTH, DENIES NEEDS. CM TO FOLLOW AND ASSIST IF NEEDED. Patient Registration Representative: Robel Brown DCP- Discharge Planning Updated by [id number]: Jeannie Mccray on 02/25/18 4:[address] CM attempted to speak with patient regarding discharge planning. Patient requested for CM to come back at a later time. He stated he didn't feel very well at this time. He also requested CM not to call his brother to obtain his information. CM will continue to follow and assist with discharge planning / needs. DCP- Discharge Planning Updated by [email or web address]: Jeannie Mccray on 02/21/18 6:[address] CM attempted visit with patient but he is currently on vent. No family available at this time. CM will continue to follow and assist as needed with discharge planning / needs. DCPIA - Discharge Planning Initial Assessment Updated by [email or web address]: Robel Brown on 03/01/18 1:11 pm * Is the patient Alert and Oriented? Yes * How many steps to enter\\exit or inside your home? NONE * PCP DR. HALL * Pharmacy [facility] * Preadmission Environment Home with Family * ADLs Independent * Equipment Cane Oxygen * Other Equipment HOME OXYGEN ONLY - [facility] * List name and contact numbers for known caregivers / representatives who currently or will assist patient after discharge: ALESIA UNKNOWN, FRIEND, CLIVE UNKNOWN, FRIEND, * Verbal permission to speak to the caregivers and representatives has been obtained from the patient. No * Community resources currently utilized None * Please name any agencies selected above. NONE * Additional services required to return to the preadmission environment? No * Can the patient safely return to the preadmission environment? Yes * Has this patient been hospitalized within the prior 30 days at any hospital? No Coverage Notice Reviewer: [id number] - Robel Brown Notice Issued Date-Time: 03/01/2018 10:00 Notice Type: IM Discharge Notice Notice Delivered To: Patient Relationship to Patient: Freight Loading Supervisor Name: Delivery Method: HAND - Hand Delivered Shae Days: Prior Verbal Notification: Recipient Understood Notice: Yes Recipient Signature: Yes Med Rec Note Co-signed by Attending: Coverage Notice Comment: Last DP export: 03/01/18 12:13 Patient Name: VIVIEN REYES Page [phone] at 1323 All edits/amendments must be made on the electronic document DICTATION DATE: 03/01/18 1323 RESEARCH AGRICULTURAL ENGINEER: LEIGH 03/01/18 1323 RPT#: [id number] DC DATE: STATUS: ADM IN [facility] [address] [place] [address] END OF REPORT
[2018-03-01 15:33] LABS: ACID FAST SMEAR Negative (()); AFB SPECIMEN PROCESSING Not Indicated (())
[2018-03-01 16:10] VITALS: BP 120/74
[2018-03-01 20:00] VITALS: BP 121/72
[2018-03-02] VITALS: BP 132/82
[2018-03-02 04:00] VITALS: BP 110/62
[2018-03-02 05:50] LABS: BASOPHILS 0.2 % (0-2); EOSINOPHILS 4.4 % (0-7); HEMOGLOBIN 8.8 g/dL (13.5-17.5); IMMATURE GRANULOCYTES 0.6 % (0-5); LYMPHOCYTES 9.2 % (15-50); MCH 25.7 pg (26.0-34.0); MCHC 30.3 g/dL (31.0-37.0); MCV 84.5 fL (80.0-100.0); MEAN PLATELET VOLUME 9.2 fL (7.4-10.4); MONOCYTES 8.5 % (2-11); NEUTROPHILS 77.1 % (40-80); PLATELET COUNT 292 10x3/uL (130-400); RBC 3.43 10x6/uL (4.20-6.10); RDW 18.9 % (11.5-14.5); WBC 12.3 10x3/uL (4.8-10.8)
[2018-03-02 06:17] LABS: ALBUMIN 2.2 g/dL (3.4-5.0); ANION GAP 15.6 mmol/L (8-16); BILIRUBIN - TOTAL 0.9 mg/dL (0.2-1.3); CALCIUM 8.5 mg/dL (8.5-10.1); CARBON DIOXIDE 25.7 mmol/L (21.0-32.0); CREATININE - SERUM 2.3 mg/dL (0.6-1.3); PROTEIN - SERUM 7.5 g/dL (6.4-8.2)
[2018-03-02 06:19] LABS: POTASSIUM - SERUM 4.3 mmol/L (3.5-5.1)
[2018-03-02 07:57] VITALS: BP 118/75
[2018-03-02 11:34] VITALS: BP 126/71
[2018-03-02 13:19] LABS: FUNGUS STAIN Final report (())
[2018-03-02 16:07] VITALS: BP 138/69
[2018-03-02 20:00] VITALS: BP 122/85
[2018-03-03] VITALS: BP 103/66
[2018-03-03 04:00] VITALS: BP 107/59
[2018-03-03 05:16] LABS: BASOPHILS 0.3 % (0-2); EOSINOPHILS 3.9 % (0-7); HEMATOCRIT 28.2 % (42.0-54.0); HEMOGLOBIN 8.7 g/dL (13.5-17.5); IMMATURE GRANULOCYTES 0.7 % (0-5); LYMPHOCYTES 10.8 % (15-50); MCH 25.8 pg (26.0-34.0); MCHC 30.9 g/dL (31.0-37.0); MCV 83.7 fL (80.0-100.0); MEAN PLATELET VOLUME 9.5 fL (7.4-10.4); MONOCYTES 9.7 % (2-11); NEUTROPHILS 74.6 % (40-80); PLATELET COUNT 340 10x3/uL (130-400); RBC 3.37 10x6/uL (4.20-6.10); RDW 19.1 % (11.5-14.5); WBC 13.4 10x3/uL (4.8-10.8)
[2018-03-03 06:01] LABS: ALBUMIN 2.2 g/dL (3.4-5.0); ANION GAP 15.5 mmol/L (8-16); BILIRUBIN - TOTAL 0.84 mg/dL (0.2-1.3); CALCIUM 9.1 mg/dL (8.5-10.1); CARBON DIOXIDE 25.7 mmol/L (21.0-32.0); CREATININE - SERUM 2.8 mg/dL (0.6-1.3); POTASSIUM - SERUM 4.2 mmol/L (3.5-5.1); PROTEIN - SERUM 7.7 g/dL (6.4-8.2)
[2018-03-03 07:54] VITALS: BP 96/57
[2018-03-03 15:00] VITALS: BP 119/69
[2018-03-03 17:13] LABS: FUNGUS CULTURE RESULT 1 Candida dubliniensis (()); FUNGUS MYCOLOGY CULTURE Preliminary report (())
[2018-03-03 20:00] VITALS: BP 106/71
[2018-03-04] VITALS: BP 111/64
[2018-03-04 04:00] VITALS: BP 108/58
[2018-03-04 05:36] LABS: BASOPHILS 0.5 % (0-2); EOSINOPHILS 4.1 % (0-7); HEMATOCRIT 26.2 % (42.0-54.0); HEMOGLOBIN 8.1 g/dL (13.5-17.5); IMMATURE GRANULOCYTES 0.6 % (0-5); LYMPHOCYTES 11.2 % (15-50); MCH 25.7 pg (26.0-34.0); MCHC 30.9 g/dL (31.0-37.0); MCV 83.2 fL (80.0-100.0); MEAN PLATELET VOLUME 9.1 fL (7.4-10.4); MONOCYTES 9.8 % (2-11); NEUTROPHILS 73.8 % (40-80); PLATELET COUNT 336 10x3/uL (130-400); RBC 3.15 10x6/uL (4.20-6.10); RDW 19.1 % (11.5-14.5); WBC 11.6 10x3/uL (4.8-10.8)
[2018-03-04 06:30] LABS: ALBUMIN 2.1 g/dL (3.4-5.0); BILIRUBIN - TOTAL 0.73 mg/dL (0.2-1.3); CALCIUM 8.6 mg/dL (8.5-10.1); CARBON DIOXIDE 23.4 mmol/L (21.0-32.0); CREATININE - SERUM 3.1 mg/dL (0.6-1.3); POTASSIUM - SERUM 4.4 mmol/L (3.5-5.1); PROTEIN - SERUM 6.5 g/dL (6.4-8.2)
[2018-03-04 11:03] VITALS: BP 144/86
[2018-03-04 18:04] VITALS: BP 139/86
[2018-03-04 20:00] VITALS: BP 115/75
[2018-03-05] VITALS: BP 105/64
[2018-03-05 04:00] VITALS: BP 103/58
[2018-03-05 05:43] LABS: BASOPHILS 0.4 % (0-2); EOSINOPHILS 3.3 % (0-7); HEMATOCRIT 30.8 % (42.0-54.0); HEMOGLOBIN 9.5 g/dL (13.5-17.5); IMMATURE GRANULOCYTES 0.6 % (0-5); LYMPHOCYTES 7.5 % (15-50); MCH 25.9 pg (26.0-34.0); MCHC 30.8 g/dL (31.0-37.0); MCV 83.9 fL (80.0-100.0); MEAN PLATELET VOLUME 9.5 fL (7.4-10.4); MONOCYTES 12.4 % (2-11); NEUTROPHILS 75.8 % (40-80); PLATELET COUNT 334 10x3/uL (130-400); RBC 3.67 10x6/uL (4.20-6.10); RDW 18.1 % (11.5-14.5); WBC 13.4 10x3/uL (4.8-10.8)
[2018-03-05 06:06] LABS: ALBUMIN 2.2 g/dL (3.4-5.0); ANION GAP 17.3 mmol/L (8-16); BILIRUBIN - TOTAL 1.28 mg/dL (0.2-1.3); CALCIUM 8.9 mg/dL (8.5-10.1); CARBON DIOXIDE 24.2 mmol/L (21.0-32.0); CREATININE - SERUM 3.4 mg/dL (0.6-1.3); POTASSIUM - SERUM 4.5 mmol/L (3.5-5.1); PROTEIN - SERUM 6.9 g/dL (6.4-8.2)
[2018-03-05 08:46] VITALS: BP 136/78
[2018-03-05 14:51] VITALS: BP 114/73
[2018-03-05 17:52] VITALS: BP 114/75
[2018-03-05 20:30] VITALS: BP 108/62
[2018-03-06 00:30] VITALS: BP 109/68
[2018-03-06 04:30] VITALS: BP 172/85
[2018-03-06 04:37] LABS: BASOPHILS 0.4 % (0-2); EOSINOPHILS 3.2 % (0-7); HEMOGLOBIN 10.1 g/dL (13.5-17.5); IMMATURE GRANULOCYTES 0.6 % (0-5); LYMPHOCYTES 8.6 % (15-50); MCH 26.7 pg (26.0-34.0); MCHC 31.6 g/dL (31.0-37.0); MCV 84.7 fL (80.0-100.0); MEAN PLATELET VOLUME 9.2 fL (7.4-10.4); MONOCYTES 10.6 % (2-11); NEUTROPHILS 76.6 % (40-80); PLATELET COUNT 345 10x3/uL (130-400); RBC 3.78 10x6/uL (4.20-6.10); RDW 18.8 % (11.5-14.5); WBC 14.3 10x3/uL (4.8-10.8)
[2018-03-06 04:53] LABS: ALBUMIN 2.2 g/dL (3.4-5.0); BILIRUBIN - TOTAL 0.87 mg/dL (0.2-1.3); CALCIUM 8.9 mg/dL (8.5-10.1); CARBON DIOXIDE 23.3 mmol/L (21.0-32.0); CREATININE - SERUM 3.6 mg/dL (0.6-1.3); PROTEIN - SERUM 7.8 g/dL (6.4-8.2)
[2018-03-06 04:58] LABS: ANION GAP 16.5 mmol/L (8-16); POTASSIUM - SERUM 4.8 mmol/L (3.5-5.1)
[2018-03-06 09:32] VITALS: BP 134/72
[2018-03-06 13:17] VITALS: BP 124/71
[2018-03-06 17:22] VITALS: BP 136/76
[2018-03-06 20:30] VITALS: BP 103/69
[2018-03-07 00:30] VITALS: BP 134/84
[2018-03-07 04:30] VITALS: BP 116/82
[2018-03-07 04:47] LABS: BASOPHILS 0.6 % (0-2); EOSINOPHILS 4.3 % (0-7); HEMATOCRIT 29.6 % (42.0-54.0); HEMOGLOBIN 9.3 g/dL (13.5-17.5); IMMATURE GRANULOCYTES 0.5 % (0-5); LYMPHOCYTES 10.1 % (15-50); MCH 26.5 pg (26.0-34.0); MCHC 31.4 g/dL (31.0-37.0); MCV 84.3 fL (80.0-100.0); MEAN PLATELET VOLUME 8.8 fL (7.4-10.4); MONOCYTES 11.4 % (2-11); NEUTROPHILS 73.1 % (40-80); PLATELET COUNT 307 10x3/uL (130-400); RBC 3.51 10x6/uL (4.20-6.10); WBC 11.7 10x3/uL (4.8-10.8)
[2018-03-07 05:07] LABS: ALBUMIN 2.2 g/dL (3.4-5.0); ANION GAP 18.1 mmol/L (8-16); BILIRUBIN - TOTAL 0.72 mg/dL (0.2-1.3); CALCIUM 8.4 mg/dL (8.5-10.1); CARBON DIOXIDE 21.3 mmol/L (21.0-32.0); CREATININE - SERUM 3.6 mg/dL (0.6-1.3); POTASSIUM - SERUM 4.4 mmol/L (3.5-5.1); PROTEIN - SERUM 7.2 g/dL (6.4-8.2)
[2018-03-07 11:13] LABS: FUNGUS MYCOLOGY CULTURE Preliminary report (())
[2018-03-07 12:03] VITALS: BP 101/70
[2018-03-07 16:16] VITALS: BP 107/66
[2018-03-07 20:00] VITALS: BP 95/63
[2018-03-08 04:00] VITALS: BP 100/60
[2018-03-08 04:42] LABS: BASOPHILS 0.4 % (0-2); EOSINOPHILS 3.5 % (0-7); HEMATOCRIT 29.5 % (42.0-54.0); HEMOGLOBIN 9.2 g/dL (13.5-17.5); IMMATURE GRANULOCYTES 0.6 % (0-5); LYMPHOCYTES 9.5 % (15-50); MCH 26.4 pg (26.0-34.0); MCHC 31.2 g/dL (31.0-37.0); MCV 84.5 fL (80.0-100.0); MEAN PLATELET VOLUME 8.9 fL (7.4-10.4); MONOCYTES 10.4 % (2-11); NEUTROPHILS 75.6 % (40-80); PLATELET COUNT 307 10x3/uL (130-400); RBC 3.49 10x6/uL (4.20-6.10); RDW 19.2 % (11.5-14.5); WBC 12.8 10x3/uL (4.8-10.8)
[2018-03-08 04:57] LABS: ALBUMIN 2.2 g/dL (3.4-5.0); BILIRUBIN - TOTAL 0.53 mg/dL (0.2-1.3); CALCIUM 8.4 mg/dL (8.5-10.1); CARBON DIOXIDE 22.9 mmol/L (21.0-32.0); CREATININE - SERUM 3.6 mg/dL (0.6-1.3); POTASSIUM - SERUM 4.9 mmol/L (3.5-5.1); PROTEIN - SERUM 7.2 g/dL (6.4-8.2)
[2018-03-08 08:30] VITALS: BP 108/65
--- NOTE | 2018-03-08 11:35 | MORECARE ---
CASE MANAGEMENT DISCHARGE SUMMARY PATIENT: VIVIEN REYES UNIT: [id number] ADM DATE: 02/20/18 AGE: 62 : 57 SEX: M ROOM/BED: D.6146 AUTHOR: CHARO SONG PHYSICIAN: REFERRING PHYSICIAN: PATTI WELDON MD DATE OF SERVICE: 03/08/18 Discharge Plan Patient Name: IVVIEN REYES Facility: [facility]:[place] : 1955 Planned Disposition: Home Anticipated Discharge Date: 03/08/18 Discharge Date: Expected LOS: 16 Initial Reviewer: [email or web address] Initial Review Date: 02/21/2018 Generated: 03/08/18 12:35 pm Comments DCP- Discharge Planning Updated by [email or web address]: Robel Brown on 03/08/18 10:[address] Patient Name: VIVIEN REYES Encounter No: [id number] : 1955 Primary Insurance: [facility] MEDICARE SOLUTIONS Anticipated DC Date: 03-08-2018 Planned Disposition: Home DCP follow-up note: CM MET WITH PT IN ROOM TO DISCUSS DISCHARGE NEEDS AND PLANNING. CM DISCUSSED AVAILABILITY OF HOME HEALTH, REHAB SERVICES AND MEDICAL EQUIPMENT. PT DENIES DISCHARGE NEEDS. FRIEND TO TRANSPORT HOME AT DISCHARGE. IMPORTANT MESSAGE FROM MEDICARE PROVIDED AND EXPLAINED. CM TO CONTINUE TO FOLLOW AND ASSIST IF NEEDED. HORACIO Garcia DCP- Discharge Planning Updated by [email or web address]: Robel Brown on 03/01/18 12:[address] Patient Name: VIVIEN REYES Admission Status: ER Accout number: [id number] Admission Date: 02-20-2018 : 1955 Admission Diagnosis:ACUTE PANCREATITIS WITHOUT NECROSIS OR INFECTION, UNSP Attending: PATTI WELDON Current LOS: 9 Anticipated DC Date: 03-02-2018 Planned Disposition: Home Primary Insurance: [facility] MEDICARE SOLUTIONS Discharge Planning Comments: CM MET WITH PT IN ROOM TO DISCUSS DISCHARGE PLANNING AND NEEDS. PT REPORTS LIVING AT HOME INDEPENDENTLY WITH FRIENDS WHO ASSIST WITH TRANSPORTATION "ANYWHERE I WANT TO GO". PT HAS A CANE AND HOME OXYGEN FROM [facility]. PT HAS NO OUTSIDE SERVICES ASSISTING IN THE HOME. CM DISCUSSED AVAILABILITY OF HOME HEALTH, REHAB SERVICES AND MEDICAL EQUIPMENT. PT DENIES DISCHARGE NEEDS, REPORTS HIS FRIEND WILL PICK HIM UP FOR DISCHARGE HOME. IMPORTANT MESSAGE FROM MEDICARE PROVIDED AND EXPLAINED. CM EXPLAINED THE BENEFITS OF HOME HEALTH AND THAT HOME HEALTH MAY HELP KEEP PT FROM READMISSION TO THE HOSPITAL. PT DECLINES HOME HEALTH, REPORTS HIS FRIENDS, ALESIA AND CLIVE, TAKE GOOD CARE OF HIM AND HE DOES NOT WANT HOME HEALTH. CM EXPLAINED TO PT HOW TO CONTACT HIS PRIMARY CARE DOCTOR TO ARRANGE HOME HEALTH IF PT CHANGES MIND AFTER GETTING HOME. PT REPORTS UNDERSTANDING. PT PLANS TO DISCHARGE HOME WITH FRIENDS, REFUSED HOME HEALTH, DENIES NEEDS. CM TO FOLLOW AND ASSIST IF NEEDED. Manager Access: Robel Brown DCP- Discharge Planning Updated by [email or web address]: Jeannie Mccray on 02/25/18 4:[address] CM attempted to speak with patient regarding discharge planning. Patient requested for CM to come back at a later time. He stated he didn't feel very well at this time. He also requested CM not to call his brother to obtain his information. CM will continue to follow and assist with discharge planning / needs. DCP- Discharge Planning Updated by [email or web address]: Jeannie Mccray on 02/21/18 6:[address] CM attempted visit with patient but he is currently on vent. No family available at this time. CM will continue to follow and assist as needed with discharge planning / needs. DCPIA - Discharge Planning Initial Assessment Updated by [email or web address]: Robel Brown on 03/01/18 1:11 pm * Is the patient Alert and Oriented? Yes * How many steps to enter\\exit or inside your home? NONE * PCP DR. HALL * [facility] * Preadmission Environment Home with Family * ADLs Independent * Equipment Cane Oxygen * Other Equipment HOME OXYGEN ONLY - [facility] * List name and contact numbers for known caregivers / representatives who currently or will assist patient after discharge: ALESIA UNKNOWN, FRIEND, CLIVE UNKNOWN, FRIEND, * Verbal permission to speak to the caregivers and representatives has been obtained from the patient. No * Community resources currently utilized None * Please name any agencies selected above. NONE * Additional services required to return to the preadmission environment? No * Can the patient safely return to the preadmission environment? Yes * Has this patient been hospitalized within the prior 30 days at any hospital? No Coverage Notice Reviewer: [id number] - Robel Brown Notice Issued Date-Time: 03/01/2018 10:00 Notice Type: IM Discharge Notice Notice Delivered To: Patient Relationship to Patient: Process Control Board Operator Name: Delivery Method: HAND - Hand Delivered Shae Days: Prior Verbal Notification: Recipient Understood Notice: Yes Recipient Signature: Yes Med Rec Note Co-signed by Attending: Coverage Notice Comment: Reviewer: [email or web address] Hudson Brown Notice Issued Date-Time: 03/08/2018 9:20 Notice Type: IM Discharge Notice Notice Delivered To: Patient Relationship to Patient: Process Control Board Operator Name: Delivery Method: HAND - Hand Delivered Shae Days: Prior Verbal Notification: Recipient Understood Notice: Yes Recipient Signature: Yes Med Rec Note Co-signed by Attending: Coverage Notice Comment: Last DP export: 03/01/18 12:23 Patient Name: VIVIEN REYES Page 70414 at 1135 All edits/amendments must be made on the electronic document DICTATION DATE: 03/08/18 113 CONTINUITY MANAGER: LEIGH 03/08/18 1134 RPT#: [id number] [place] DATE: STATUS: ADM IN [facility] [address] [place] [address] END OF REPORT
[2018-03-08 12:08] VITALS: BP 122/77
[2018-03-08] MEDS ORDERED: COREG 3.1253.125 MG PO (12:51)
[2018-03-08] MEDS ORDERED: AMIODARONE HCL200 MG PO (12:51)
[2018-03-08] MEDS ORDERED: BROVANA15 MCG/2 M INH (13:35)
[2018-03-08] MEDS ORDERED: PULMICORT0.5 MG/21 UPD (13:35)
[2018-03-08] MEDS ORDERED: ATROVENT 0.02%2.5 ML UPD (13:35)
--- NOTE | 2018-03-10 09:52 | MORECARE ---
CASE MANAGEMENT DISCHARGE SUMMARY PATIENT: VIVIEN REYES SR UNIT: [id number] ADM DATE: 02/20/18 AGE: 62 : 57 SEX: M ROOM/BED: D.3237 AUTHOR: NOHEMI,DOC PHYSICIAN: REFERRING PHYSICIAN: PATTI WELDON MD DATE OF SERVICE: 03/10/18 Discharge Plan Patient Name: VIVIEN REEYS Facility: [facility]:[place] : 1955 Planned Disposition: Home Anticipated Discharge Date: 03/08/18 Discharge Date: 03/08/2018 Expected LOS: 16 Initial Reviewer: [email or web address] Initial Review Date: 02/21/2018 Generated: 03/10/18 10:52 am Comments DCP- Discharge Planning Updated by [email or web address]: Robel Brown on 03/08/18 10:[address] Patient Name: VIVIEN REYES Encounter No: [id number] : 1955 Primary Insurance: [facility] MEDICARE SOLUTIONS Anticipated DC Date: 03-08-2018 Planned Disposition: Home DCP follow-up note: CM MET WITH PT IN ROOM TO DISCUSS DISCHARGE NEEDS AND PLANNING. CM DISCUSSED AVAILABILITY OF HOME HEALTH, REHAB SERVICES AND MEDICAL EQUIPMENT. PT DENIES DISCHARGE NEEDS. FRIEND TO TRANSPORT HOME AT DISCHARGE. IMPORTANT MESSAGE FROM MEDICARE PROVIDED AND EXPLAINED. CM TO CONTINUE TO FOLLOW AND ASSIST IF NEEDED. HORACIO Garcia DCP- Discharge Planning Updated by [email or web address]: Robel Brown on 03/01/18 12:[address] Patient Name: VIVIEN REYES Admission Status: ER Accout number: [id number] Admission Date: 02-20-2018 : 1955 Admission Diagnosis:ACUTE PANCREATITIS WITHOUT NECROSIS OR INFECTION, UNSP Attending: PATTI WELDON Current LOS: 9 Anticipated DC Date: 03-02-2018 Planned Disposition: Home Primary Insurance: [facility] MEDICARE SOLUTIONS Discharge Planning Comments: CM MET WITH PT IN ROOM TO DISCUSS DISCHARGE PLANNING AND NEEDS. PT REPORTS LIVING AT HOME INDEPENDENTLY WITH FRIENDS WHO ASSIST WITH TRANSPORTATION "ANYWHERE I WANT TO GO". PT HAS A CANE AND HOME OXYGEN FROM [facility]. PT HAS NO OUTSIDE SERVICES ASSISTING IN THE HOME. CM DISCUSSED AVAILABILITY OF HOME HEALTH, REHAB SERVICES AND MEDICAL EQUIPMENT. PT DENIES DISCHARGE NEEDS, REPORTS HIS FRIEND WILL PICK HIM UP FOR DISCHARGE HOME. IMPORTANT MESSAGE FROM MEDICARE PROVIDED AND EXPLAINED. CM EXPLAINED THE BENEFITS OF HOME HEALTH AND THAT HOME HEALTH MAY HELP KEEP PT FROM READMISSION TO THE HOSPITAL. PT DECLINES HOME HEALTH, REPORTS HIS FRIENDS, ALESIA AND CLIVE, TAKE GOOD CARE OF HIM AND HE DOES NOT WANT HOME HEALTH. CM EXPLAINED TO PT HOW TO CONTACT HIS PRIMARY CARE DOCTOR TO ARRANGE HOME HEALTH IF PT CHANGES MIND AFTER GETTING HOME. PT REPORTS UNDERSTANDING. PT PLANS TO DISCHARGE HOME WITH FRIENDS, REFUSED HOME HEALTH, DENIES NEEDS. CM TO FOLLOW AND ASSIST IF NEEDED. Relations Mgr: Robel Brown DCP- Discharge Planning Updated by [id number]: Jeannie Mccray on 02/25/18 4:[address] CM attempted to speak with patient regarding discharge planning. Patient requested for CM to come back at a later time. He stated he didn't feel very well at this time. He also requested CM not to call his brother to obtain his information. CM will continue to follow and assist with discharge planning / needs. DCP- Discharge Planning Updated by [email or web address]: Jeannie Mccray on 02/21/18 6:[address] CM attempted visit with patient but he is currently on vent. No family available at this time. CM will continue to follow and assist as needed with discharge planning / needs. DCPIA - Discharge Planning Initial Assessment Updated by [email or web address]: Robel Brown on 03/01/18 1:11 pm * Is the patient Alert and Oriented? Yes * How many steps to enter\\exit or inside your home? NONE * PCP DR. HALL * [facility] * Preadmission Environment Home with Family * ADLs Independent * Equipment Cane Oxygen * Other Equipment HOME OXYGEN ONLY - [facility] * List name and contact numbers for known caregivers / representatives who currently or will assist patient after discharge: ALESIA UNKNOWN, FRIEND, CLIVE UNKNOWN, FRIEND, * Verbal permission to speak to the caregivers and representatives has been obtained from the patient. No * Community resources currently utilized None * Please name any agencies selected above. NONE * Additional services required to return to the preadmission environment? No * Can the patient safely return to the preadmission environment? Yes * Has this patient been hospitalized within the prior 30 days at any hospital? No Coverage Notice Reviewer: [email or web address] Hudson Brown Notice Issued Date-Time: 03/01/2018 10:00 Notice Type: IM Discharge Notice Notice Delivered To: Patient Relationship to Patient: Gas Dispatcher Name: Delivery Method: HAND - Hand Delivered Shae Days: Prior Verbal Notification: Recipient Understood Notice: Yes Recipient Signature: Yes Med Rec Note Co-signed by Attending: Coverage Notice Comment: Reviewer: [email or web address] Hudson Brown Notice Issued Date-Time: 03/08/2018 9:20 Notice Type: IM Discharge Notice Notice Delivered To: Patient Relationship to Patient: Gas Dispatcher Name: Delivery Method: HAND - Hand Delivered Shae Days: Prior Verbal Notification: Recipient Understood Notice: Yes Recipient Signature: Yes Med Rec Note Co-signed by Attending: Coverage Notice Comment: Last DP export: 03/08/18 10:35 Patient Name: VIVIEN REYES Page [phone] at 0952 All edits/amendments must be made on the electronic document DICTATION DATE: 03/10/18951 CENTER DIRECTOR LEAD TEACHER: LEIGH 03/10/18951 RPT#: [id number] DC DATE:03/08/18 STATUS: DIS IN [facility] [address] [place] [address] END OF REPORT
== END 2018-03-08 17:59 | disposition home or self-care (01) | DRG 438 ==
LOC: D.ER 18:48 → D.ICU 23:10 → D.M2 23:10 → D.ICU 02-21 06:35 → D.M2 02-26 16:54 → D.SDCHOLD 03-01 10:17 → D.M2 03-01 10:48
PROVIDERS: Family Medicine; Family Medicine Adult Medicine; Internal Medicine Nephrology; Internal Medicine Pulmonary Disease; Specialist; ADMIT Family Medicine
PROC: 5A1955Z Respiratory Ventilation, Greater than 96 Consecutive Hours (ICD-10-PCS; principal; 2018-02-21)
PROC: 0BH17EZ Insertion of Endotracheal Airway into Trachea, Via Natural or Artificial Opening (ICD-10-PCS; 2018-02-21)
PROC: 05HY33Z Insertion of Infusion Device into Upper Vein, Percutaneous Approach (ICD-10-PCS; 2018-02-22)
PROC: 0B9B8ZZ Drainage of Left Lower Lobe Bronchus, Via Natural or Artificial Opening Endoscopic (ICD-10-PCS; 2018-02-24)
PROC: 0B968ZZ Drainage of Right Lower Lobe Bronchus, Via Natural or Artificial Opening Endoscopic (ICD-10-PCS; 2018-02-24)
PROC: 0W993ZZ Drainage of Right Pleural Cavity, Percutaneous Approach (ICD-10-PCS; 2018-02-28)
DX: K85.20 Alcohol induced acute pancreatitis without necrosis or infection (principal); J96.21 Acute and chronic respiratory failure with hypoxia; J96.22 Acute and chronic respiratory failure with hypercapnia; I50.23 Acute on chronic systolic (congestive) heart failure; J69.0 Pneumonitis due to inhalation of food and vomit; G93.41 Metabolic encephalopathy; I13.0 Hypertensive heart and chronic kidney disease with heart failure and stage 1 through stage 4 chronic kidney disease, or unspecified chronic kidney disease; N17.9 Acute kidney failure, unspecified; J44.1 Chronic obstructive pulmonary disease with (acute) exacerbation; R18.8 Other ascites; E87.4 Mixed disorder of acid-base balance; G93.1 Anoxic brain damage, not elsewhere classified; F17.203 Nicotine dependence unspecified, with withdrawal; I42.9 Cardiomyopathy, unspecified; J98.11 Atelectasis; F10.10 Alcohol abuse, uncomplicated; E87.5 Hyperkalemia; I25.10 Atherosclerotic heart disease of native coronary artery without angina pectoris; E16.2 Hypoglycemia, unspecified; D50.9 Iron deficiency anemia, unspecified; I48.91 Unspecified atrial fibrillation; F19.10 Other psychoactive substance abuse, uncomplicated; N18.3 Chronic kidney disease, stage 3 (moderate)

== ENCOUNTER → 2018-03-30 16:12 | Outpatient (CLI) | payer MEDICARE, MEDICAID ==
[2018-02-21 12:02] VITALS: BMI 19.7
[~2018-03-30 16:12] MED LIST changes: +AMIODARONE HCL200 MG PO; +ATROVENT 0.02%2.5 ML UPD; +BROVANA15 MCG/2 M INH; +PULMICORT0.5 MG/21 UPD
[2018-03-30 18:25] LABS: ANION GAP 16.5 mmol/L (8-16); CALCIUM 9.7 mg/dL (8.5-10.1); CARBON DIOXIDE 24.8 mmol/L (21.0-32.0); CREATININE - SERUM 1.7 mg/dL (0.6-1.3); POTASSIUM - SERUM 5.3 mmol/L (3.5-5.1)
== END | disposition home or self-care (01) ==
LOC: D.LABREF 16:12
PROVIDERS: Nurse Practitioner Adult Health
DX: N28.9 Disorder of kidney and ureter, unspecified (principal)

== ENCOUNTER 2018-05-27 08:33 | Inpatient (IN) | payer MEDICARE, MEDICAID ==
[~2018-05-27] VITALS: Ht 185.4 cm; Wt 82.5 kg
--- NOTE | ~2018-05-27 | HEMODYNAMI ---
PATIENT:VIVIEN REYES SR MEDICAL RECORD: [id number] : [birth year] [facility] [id number] ADMISSION DATE: 05/27/18 Generatedon:05/30/201812:33 Patient name: VIVIEN REYES Patient #: [id number] : 1955 Date of study: 05/30/2018 Page: Of Hemodynamic Procedure Report Patient Data Patient Demographics Procedure consent was obtained First Name: VIVIEN Gender: Male Last Name: ERIC Suffix: [facility] Initial: D : 1955 Patient #: [id number] Age: 63 year(s) Race: Black SSN: [id number] Additional ID: [id number] Contact details [address]: [address] [place] [address] State: [place] City: [place] Zip code: [address] Past Medical History Allergies Allergen Reaction Date Comments Reported Other allergy 01/01/2016 penicillin Penicillins 01/02/2016 Penicillins 05/25/2016 Other allergy 06/26/2016 PCN Penicillins 05/30/2018 Admission Admission Data Admission Date: 05/27/2018 Admission Time: 11:18 Room #: 2115 Lab Results Lab Result Date: 05/30/2018 Lab Result Time: 0:00 Biochemistry Name Units Result Min Max BUN mg/dl 45 --(----)-* 7 18 Creatinine mg/dl 1.5 --(----)-* 0.6 1.3 CBC Name Units Result Min Max Hemoglobin g/dl 9.6 *-(----)-- 13.5 17.5 Procedure Procedure Types Cath Procedure Diagnostic Procedure LHC LHC w/Coronaries Procedure Description Procedure Date Procedure Date: 05/30/2018 Procedure Start Time: 12:25 Procedure End Time: 12:30 Procedure Staff Name Function Gio Gomez MD Performing Physician Corrina Liu RT Monitor Priyank Dominguez RT Scrub Viadl Donnelly RN Nurse Procedure Data Cath Procedure Fluoroscopy Diagnostic fluoroscopy Total fluoroscopy Time: 1 time: 1 min min Diagnostic fluoroscopy Total fluoroscopy dose: 160 dose: 160 mGy mGy Contrast Material Contrast Material Type Amount (ml) Isovue 300 46 Entry Location Entry Primary Successful Side Size Upsize Upsize Entry Closure Stuart ccessful Closure Location (Fr) 1 (Fr) 2 (Fr) Remarks Device Remarks Radial Right 6 Fr Mechanical artery Short Compression Estimated blood loss: 5 ml Diagnostic catheters Device Type Used For End Catheter Placement DIAGNOSTIC Chester 110cm 5 Procedure Fr catheter ([id number]) Procedure Complications No complications Procedure Medications Medication Administration Route Dosage Oxygen etCO2 Nasal cannula 2 l/min Heparin Flush Bag added to field 2 bags (1000units/500ml NS) 0.9% NaCl I.V. 100 ml/hr Lidocaine 2% added to field 20 Radial Cocktail added to field 1 syringe (Verapomil 2mg/Nitro 400mcg/Heparin 1500units) Fentanyl I.V. 50 mcg Versed I.V. 1 mg Radial Cocktail I.A. 1 syringe (Verapomil 2mg/Nitro 400mcg/Heparin 1500units) Fentanyl I.V. 50 mcg Versed I.V. 1 mg Hemodynamics Rest HGB: 9.6 (g/dl) Heart Rate: 77 (bpm) Snapshots Pre Cath Intra NCS Post Cath Vital Signs Time Heart Resp SPO2 etCO2 NIBP (mmHg) Rhythm Pain Sedation Rate (ipm) (%) (mmHg) Status Level (bpm) 12:00:47 77 21 97 0 127/89(112) NSR 0 (11) 10(A) , No pain 12:04:45 76 21 98 0 122/92(108) NSR 0 (11) 10(A) , No pain 12:08:46 76 23 96 0 121/83(102) NSR 0 (11) 10(A) , No pain 12:12:46 75 21 85 0 119/86(103) NSR 0 (11) 10(A) , No pain 12:16:50 71 22 91 0 115/77(96) NSR 0 (11) 10(A) , No pain 12:20:45 74 19 91 0 116/90(94) NSR 0 (11) 10(A) , No pain 12:24:49 72 20 95 0 116/76(103) NSR 0 (11) 10(A) , No pain 12:28:55 70 23 90 0 105/77(88) NSR 0 (11) 9(A) , No pain 12:31:55 70 22 94 0 112/78(89) NSR 0 (11) 9(A) , No pain Medications Time Medication Route Dose Verified Delivered Reason Notes Effectiveness by by 12:02:43 Oxygen etCO2 2 l/min Gio Drake Per Nasal Patricia Donnelly RN physician cannula 12:02:51 Heparin Flush added 2 bags Gio Drake used for Bag to Patricia Donnelly RN procedure (1000units/500ml field NS) 12:03:00 0.9% NaCl I.V. 100 Gio Drake Per ml/hr Patricia Donnelly RN physician 12:03:12 Lidocaine 2% added 20ml Gio Drake for local to vial Patricia Donnelly RN anesthetic field 12:03:21 Radial Cocktail added 1 Gio Drake used for (Verapomil to syringe Patricia Donnelly RN procedure 2mg/Nitro field 400mcg/Heparin 1500units) 12:24:30 Fentanyl I.V. 50 mcg Gio Drake for sedation Patricia Donnelly RN 12:24:36 Versed I.V. 1 mg Gio Drake for sedation Patricia Donnelly RN 12:25:40 Radial Cocktail I.A. 1 Gio Powers for (Verapomil syringe Patricia Gomez MD vasodilation 2mg/Nitro 400mcg/Heparin 1500units) 12:26:28 Fentanyl I.V. 50 mcg Gio Drake for sedation Patricia Donnelly RN 12:26:33 Versed I.V. 1 mg Gio Drake for sedation Patricia Donnelly RN Procedure Log Time Note 11:43:29 Signed procedure consent form obtained from patient. 11:43:31 Time tracking: Regular hours (M-F 7:00 - 5:00) 11:43:35 Plan of Care:Hemodynamics will remain stable., Cardiac rhythm will remain stable., Comfort level will be maintained., Respiratory function will remain adequate., Patient/ family verbilizes understanding of procedure., Procedure tolerated without complication., Recovers from procedure without complications.. 11:43:37 Diagnostic Cath status Elective 11:43:58 H&P Date Dictated: 05/27/2018 Within 30 days and on chart.. 11:44:59 Patient allergic to Penicillins 11:45:51 Vidal Donnelly RN sent for patient. Start room use. 11:53:15 Patient received from Med II to CCL 3 Alert and oriented. Tansferred to table in Supine position. 11:53:17 Warm blankets applied, and connie hugger turned on for patient comfort. 11:53:18 Correct patient and procedure confirmed by team. 11:53:20 ECG and BP/O2 sat monitors applied to patient. 11:59:58 Vital chart was started 12:02:43 Oxygen 2 l/min etCO2 Nasal cannula was administered by Vidal Donnelly RN; Per physician; 12:02:51 Heparin Flush Bag (1000units/500ml NS) 2 bags added to field was administered by Vidal Donnelly RN; used for procedure; 12:03:00 Baseline sample Acquired. 12:03:00 0.9% NaCl 100 ml/hr I.V. was administered by Vidal Donnelly RN; Per physician; 12:03:09 Rhythm: sinus rhythm 12:03:10 Full Disclosure recording started 12:03:11 Pre-procedure instructions explained to patient. 12:03:11 Pre-op teaching completed and patient verbalized understanding. 12:03:12 Lidocaine 2% 20ml vial added to field was administered by Vidal Donnelly RN; for local anesthetic; 12:03:16 Family unavailable. 12:03:17 Patient NPO since Midnight. 12:03:20 Is patient on blood thinner?Yes 12:03:21 Radial Cocktail (Verapomil 2mg/Nitro 400mcg/Heparin 1500units) 1 syringe added to field was administered by Vidal Donnelly RN; used for procedure; 12:03:22 ACC The patient was administered the following blood thiners within the last 24 hours: ACCPlavix 12:03:58 Patient diabetic? No. 12:04:37 Previous problem with sedation/anesthesia? No ? 12:04:39 Snore? Yes 12:04:40 Sleep apnea? No 12:04:41 Deviated septum? No 12:04:42 Opens mouth fully? Yes 12:04:43 Sticks out tongue? Yes 12:04:47 Airway obstruction? Yes COPD 12:04:53 Dentures? No LOST TEETH 12:05:24 Modified Helder's test Ulnar < 7 seconds 12:05:32 Patient pain scale 0/10 ?. 12:05:47 IV patent on arrival in left forearm with 0.9% NaCl at [facility]. 12:06:04 Lab Result : BUN 45 mg/dl 12:06:04 Lab Result : Creatinine 1.5 mg/dl 12:06:04 Lab Result : Hemoglobin 9.6 g/dl 12:06:07 Lab results completed and on chart. 12:06:11 Right Radial & Right Groin area was prepped with chlora-prep and draped in sterile fashion 12:06:11 Alarms reviewed by R. N. 12:06:12 Sharps counted by scrub and verified by R.N. 12:11:47 Use device set Radial Dx or PCI 12:11:49 ACIST Syringe (91174) opened to sterile field. 12:11:50 Bag Decanter (2002S) opened to sterile field. 12:11:51 ACIST Hand Control (01036) opened to sterile field. 12:11:51 ACIST Manifold (35727) opened to sterile field. 12:11:52 Tegaderm 4 x 4 (1626W) opened to sterile field. 12:11:53 Medline Cath Pack ([id number]) opened to sterile field. 12:11:54 DIAGNOSTIC WIRE .035 260cm J wire (518461) opened to sterile field. 12:11:54 MBrace Wrist Support ([id number]) opened to sterile field. 12:11:56 SHEATH 6FR Slender (82-1060) opened to sterile field. 12:16:00 Zero performed for pressure channel P1 12:17:02 Zero performed for pressure channel P1 12:23:15 --------ALL STOP TIME OUT------ 12:23:15 Final Timeout: patient, procedure, and site verified with staff and physician. All members of the team are in agreement. 12:23:17 Right Radial & Right Groin site verified by team. 12:23:31 Maximum allowable Isovue 300 dose 300ml. Physician notified. (300ml for normal creatinines. For patients with creatinine of 1.7 or higher multiply weight(kg) x 5 divided by creatinine.) 12:23:35 Fire Safety Assessment: A--An alcohol-based skin anteseptic being used preoperatively., C--Open oxygen or nitrous oxide is being used., D--An ESU, laser, or fiber-optic light is being used. 12::38 Physical assessment completed. ASA score P 3 - A patient with severe systemic disease as per Gio Gomez MD. 12::41 Sedation plan: IV Moderate Sedation Medication:Versed, Fentanyl 12::30 Fentanyl 50 mcg I.V. was administered by Vidal Donnelly RN; for sedation; 12::36 Versed 1 mg I.V. was administered by Vidal Donnelly RN; for sedation; 12::49 Procedure started. 12::18 Local anesthetic to right radial artery with Lidocaine 2% by Gio Gomez MD.INITIAL ACCESS ONLY 12::40 Radial Cocktail (Verapomil 2mg/Nitro 400mcg/Heparin 1500units) 1 syringe I.A. was administered by Gio Gomez MD; for vasodilation; 12::42 A 6 Fr Short sheath was inserted into the Right Radial artery 12:: A DIAGNOSTIC Chester 110cm 5 Fr catheter ([id number]) was advanced over the wire and used for Procedure. 12:: Fentanyl 50 mcg I.V. was administered by Vidal Donnelly RN; for sedation; :: LV gram done using GARCIA 12::33 Versed 1 mg I.V. was administered by Vidal Donnelly RN; for sedation; 12::39 Injector settings: Ml/sec: 5, Volume: 15, 12::48 EF : 20 % 12:: LCA angiography performed. 12::43 RCA angiography performed. 12::14 Catheter removed. 12::18 TR BAND Standard ([id number]) opened to sterile field. 12::28 Procedure ended.(Physican Out) 12::49 Sheath removed intact; hemostasis achieved with Mechanical Compression to the Right Radial artery. 12::54 Fluoroscopy time 01.00 minutes. ::59 Fluoroscopy dose: 160 mGy 12::59 Flurop Dose total: 160 12:29:03 Contrast amount:Isovue 300 46ml. 12:29:04 Sharps counted by scrub and verified by R.N. 12:29:07 TR band inflated with 10cc of air. 12:29:10 Post-procedure physical assessment completed. ASA score P 3 - A patient with severe systemic disease as per Gio Gomez MD. 12:29:14 Post procedure rhythm: sinus rhythm 12:29:16 Estimated blood loss: 5 ml 12:29:18 Post procedure instruction explained to patient.Patient verbalizes understanding. 12:29:18 Patient needs reinforcement of post procedure teaching. 12:29:53 Procedure and supply charges have been captured, reviewed, submitted and are correct. 12:29:55 Procedure Complication : No complications 12::57 Vital chart was stopped 12::57 See physician's report for complete and final results. 12:29:59 Report given to PCU. 12:30:02 Patient transfered to PCU with Bed. 12:30:04 Procedure ended. 12:30:04 Full Disclosure recording stopped 12:30:09 End room use (Document Last) Device Usage Item Name Manufacture Quantity Catalog Hospital Part Current Minimal Lot# / Number Charge Number Stock Stock Serial# Code ACIST Acist 1 28512 252009 421179 671821 20 Syringe Medical (83233) Systems Inc Bag Microtek 1 2001S 607918 54139 892549 5 Decanter Medical Inc. (2001S) ACIST Hand Acist 1 39739 861056 279516 259711 5 Control Medical (95526) Systems Inc ACIST Acist 1 37019 553916 837944 448559 5 Manifold Medical (11285) Systems Inc Tegaderm 4 3M 1 1626W 633960 652669 811329 5 x 4 (1626W) Medline Medline 1 [id number] 528227 92652 516031 5 Cath Pack ([id number]) DIAGNOSTIC St Tihen 1 348557 514538 281360 168654 30 WIRE .035 260cm J wire (516521) MBrace Advanced 1 140-0250-00 024832 50291 702221 5 Wrist Vascular Support Dynamics ([id number]) SHEATH 6FR Terumo 1 [id number] 626624 449890 232532 5 Slender (80-1060) DIAGNOSTIC Terumo 1 40-9533 626118 658594 231941 5 Chester 110cm 5 Fr catheter (589763) TR BAND Terumo 1 [id number] 596258 200397 131968 40 Standard ([id number]) Signature Audit Maple Stage Time Signature Unsigned Intra-Procedure 05/30/2018 Corrina Liu 12:33:25 PM RT(R) Signatures Monitor : Corrina Liu Signature : RT Date : Time : [address] [address]
[2018-05-27 09:05] LABS: HEMATOCRIT 31.2 % (42.0-54.0); HEMOGLOBIN 10.3 g/dL (13.5-17.5); MCH 28.5 pg (26.0-34.0); MCV 86.4 fL (80.0-100.0); MEAN PLATELET VOLUME 8.9 fL (7.4-10.4); RBC 3.61 10x6/uL (4.20-6.10); RDW 19.8 % (11.5-14.5); WBC 16.8 10x3/uL (4.8-10.8)
[2018-05-27 09:12] LABS: PLATELET COUNT 231 10x3/uL (130-400)
[2018-05-27 09:14] LABS: APTT 33.9 SECONDS (22.8-39.4); INR 1.33 (0.85-1.17); PROTIME 15.9 SECONDS (11.6-15.0)
[2018-05-27 09:19] LABS: ALBUMIN 2.7 g/dL (3.4-5.0); ALKALINE PHOSPHATASE 348 U/L (46-116); ALT (SGPT) 14 U/L (10-68); BILIRUBIN - TOTAL 1.44 mg/dL (0.2-1.3); CALC OSMOLALITY 270 mosm/kg (275-300); CALCIUM 8.8 mg/dL (8.5-10.1); CARBON DIOXIDE 22.4 mmol/L (21.0-32.0); CHLORIDE - SERUM 100 mmol/L (98-107); CREATININE - SERUM 1.1 mg/dL (0.6-1.3); GLUCOSE 100 mg/dL (74-106); PROTEIN - SERUM 7.7 g/dL (6.4-8.2); SODIUM 134 mmol/L (136-145); UREA NITROGEN 21 mg/dL (7-18); eGFR NON AFRICAN AMERICAN 72 mL/min (90-120)
[2018-05-27 09:33] LABS: CKMB 2.5 U/L (0.0-3.6); CREATINE KINASE 98 UL (21-232); MAGNESIUM - SERUM 1.5 mg/dL (1.8-2.4); PRO BNP 7484 pg/mL (0-125)
[2018-05-27 09:42] LABS: TROPONIN-I 0.133 ng/mL (0.000-0.060)
[2018-05-27 10:03] VITALS: BP 124/81
--- NOTE | 2018-05-27 11:02 | NUR ---
ORDERED ZITHROMAX TO BE GIVEN AFTER ORDERED ROCEPHIN IS DISCONTINUED.
[2018-05-27 11:24] LABS: BASOPHILS 1 % (0-2); LYMPHOCYTES 10 % (15-50); MONOCYTES 8 % (2-11); NEUTROPHILS 77 % (40-80); PLATELET ESTIMATE NORMAL
--- NOTE | 2018-05-27 11:30 | NUR ---
ORDERED ROCEPHIN COMPLETED. STOP TIME 1130.
[2018-05-27 12:11] LABS: CKMB 2.3 U/L (0.0-3.6); CREATINE KINASE 94 UL (21-232); TROPONIN-I 0.129 ng/mL (0.000-0.060)
[2018-05-27 13:47] VITALS: BP 126/80; BMI 22.6
[2018-05-27 15:49] VITALS: BP 121/68
[2018-05-27 17:59] LABS: CKMB 2.3 U/L (0.0-3.6); CREATINE KINASE 87 UL (21-232)
[2018-05-27 18:02] LABS: TROPONIN-I 0.127 ng/mL (0.000-0.060)
[2018-05-27 19:58] VITALS: BP 118/57
--- NOTE | 2018-05-27 20:18 | NUR ---
INITIAL ROUNDS AND ASSESSMENT COMPLETED. SEE ASSESSMENT. MONITOR AND CPOC.
--- NOTE | 2018-05-27 22:36 | NUR ---
BEDTIME MEDS GIVEN. IV DOBUTREX INFUSING AT 11.5ML/HR TO LFA. O2 @ 2LNC. VOIDING TO URINAL. / PER TELEMETRY. CALL LIGHT IN REACH. MONITOR AND CPOC.
[2018-05-27 23:10] LABS: CREATINE KINASE 81 UL (21-232)
[2018-05-27 23:11] LABS: TROPONIN-I 0.123 ng/mL (0.000-0.060)
[2018-05-27 23:35] VITALS: BP 127/75
[2018-05-28 05:10] VITALS: BP 144/74
[2018-05-28 05:44] LABS: BASOPHILS 0 % (0-2); EOSINOPHILS 0 % (0-7); HEMATOCRIT 28.3 % (42.0-54.0); HEMOGLOBIN 9.4 g/dL (13.5-17.5); IMMATURE GRANULOCYTES 0.4 % (0-5); LYMPHOCYTES 5.1 % (15-50); MCH 28.7 pg (26.0-34.0); MCHC 33.2 g/dL (31.0-37.0); MCV 86.3 fL (80.0-100.0); MEAN PLATELET VOLUME 8.9 fL (7.4-10.4); MONOCYTES 1.9 % (2-11); NEUTROPHILS 92.6 % (40-80); PLATELET COUNT 231 10x3/uL (130-400); RBC 3.28 10x6/uL (4.20-6.10); RDW 19.6 % (11.5-14.5)
[2018-05-28 05:48] LABS: ALBUMIN 2.4 g/dL (3.4-5.0); BILIRUBIN - TOTAL 0.85 mg/dL (0.2-1.3); CALCIUM 8.3 mg/dL (8.5-10.1); CARBON DIOXIDE 21.8 mmol/L (21.0-32.0); MAGNESIUM - SERUM 1.4 mg/dL (1.8-2.4); POTASSIUM - SERUM 3.8 mmol/L (3.5-5.1); PROTEIN - SERUM 7.3 g/dL (6.4-8.2)
[2018-05-28 05:52] LABS: CREATININE - SERUM 1.4 mg/dL (0.6-1.3)
[2018-05-28 06:11] LABS: WBC 10.3 10x3/uL (4.8-10.8)
--- NOTE | 2018-05-28 07:30 | NUR ---
RECEIVED PT IN BED EYES CLOSED RESP UNLABORED NAD NOTED
[2018-05-28 08:59] VITALS: BP 113/64
[2018-05-28 09:10] VITALS: Ht 185.4 cm; Wt 82.5 kg
[2018-05-28 11:30] VITALS: BP 103/59
--- NOTE | 2018-05-28 15:00 | NUR ---
PT IS UP AD SKY REFUSES TO WERE SCDs
[2018-05-28 15:30] VITALS: BP 121/65
--- NOTE | 2018-05-28 19:54 | NUR ---
INITIAL ROUNDS AND ASSESSMENT COMPLETED. O2 @ 2L/NC WITH NONLABORED RESPIRATIONS. DOBUTREX DRIP AT 5MCG/KG=11.5ML/HR INFUSING TO LFA. PT ALERT/ORIENTED. SAYING HE IS FEELING BETTER. SR PER TELEMETRY. VOIDING PER URINAL. MONITOR AND CPOC.
[2018-05-28 20:00] VITALS: BP 132/75
[2018-05-29] VITALS: BP 108/54; BP 132/75
[2018-05-29 04:00] VITALS: BP 105/72
[2018-05-29 05:34] LABS: BASOPHILS 0 % (0-2); EOSINOPHILS 0 % (0-7); HEMATOCRIT 28.6 % (42.0-54.0); HEMOGLOBIN 9.2 g/dL (13.5-17.5); IMMATURE GRANULOCYTES 0.4 % (0-5); LYMPHOCYTES 2.7 % (15-50); MCH 28.1 pg (26.0-34.0); MCHC 32.2 g/dL (31.0-37.0); MCV 87.5 fL (80.0-100.0); MEAN PLATELET VOLUME 8.9 fL (7.4-10.4); MONOCYTES 3.8 % (2-11); NEUTROPHILS 93.1 % (40-80); PLATELET COUNT 233 10x3/uL (130-400); RBC 3.27 10x6/uL (4.20-6.10); RDW 19.7 % (11.5-14.5)
[2018-05-29 05:59] LABS: ALBUMIN 2.4 g/dL (3.4-5.0); ANION GAP 16.4 mmol/L (8-16); BILIRUBIN - TOTAL 0.58 mg/dL (0.2-1.3); CALCIUM 8.1 mg/dL (8.5-10.1); CARBON DIOXIDE 23.5 mmol/L (21.0-32.0); CREATININE - SERUM 1.5 mg/dL (0.6-1.3); MAGNESIUM - SERUM 1.5 mg/dL (1.8-2.4); POTASSIUM - SERUM 3.9 mmol/L (3.5-5.1); PROTEIN - SERUM 7.2 g/dL (6.4-8.2)
[2018-05-29 06:00] LABS: WBC 16.8 10x3/uL (4.8-10.8)
--- NOTE | 2018-05-29 07:30 | NUR ---
RECEIVED PT IN BED AAOX4 RESP UNLABORED DENIES ANY NEEDS OR DISCOMFORT DOBUTREX PATENT TO LFA AT 11.5ML/HR PER PUMP SITE FREE OF REDNESS OR EDEMA NAD NOTED
[2018-05-29 08:51] VITALS: BP 129/80
[2018-05-29 14:43] VITALS: BP 104/74
--- NOTE | 2018-05-29 16:24 | NUR ---
AMBULATING IN HALLWAY TOLERATING WELL
--- NOTE | 2018-05-29 20:16 | NUR ---
INITIAL ROUNDS AND ASSESSMENT COMPLETED. PT UP AND AMBULATING IN HALLWAY. IV DOBUTREX AT 11.5ML/HR INFUSING. O2 @ 2L/NC NEEDED FOR SOB. SR PER TELEMETRY. WILL BE NPO AFTER MIDNIGHT FOR HEART CATH IN THE AM. MONITOR AND CPOC.
--- NOTE | 2018-05-29 21:09 | NUR ---
BEDTIME MEDS GIVEN. PT RESTING. EATING A HAMBURGER. UNDERSTANDS HE IS NPO AFTER MIDNIGHT. MONITOR AND CPOC.
[2018-05-29 21:53] VITALS: BP 134/67
[2018-05-30 04:53] VITALS: BP 98/59
[2018-05-30 06:26] LABS: ALBUMIN 2.5 g/dL (3.4-5.0); ANION GAP 16.7 mmol/L (8-16); BILIRUBIN - TOTAL 0.54 mg/dL (0.2-1.3); CALCIUM 8.4 mg/dL (8.5-10.1); CARBON DIOXIDE 25.2 mmol/L (21.0-32.0); CREATININE - SERUM 1.5 mg/dL (0.6-1.3); MAGNESIUM - SERUM 1.6 mg/dL (1.8-2.4); POTASSIUM - SERUM 3.9 mmol/L (3.5-5.1); PROTEIN - SERUM 7.5 g/dL (6.4-8.2)
[2018-05-30 06:33] LABS: BASOPHILS 0 % (0-2); EOSINOPHILS 0.1 % (0-7); HEMATOCRIT 30.1 % (42.0-54.0); HEMOGLOBIN 9.6 g/dL (13.5-17.5); IMMATURE GRANULOCYTES 0.3 % (0-5); MCH 28.4 pg (26.0-34.0); MCHC 31.9 g/dL (31.0-37.0); MCV 89.1 fL (80.0-100.0); MEAN PLATELET VOLUME 9.3 fL (7.4-10.4); NEUTROPHILS 88.6 % (40-80); RBC 3.38 10x6/uL (4.20-6.10); WBC 18.1 10x3/uL (4.8-10.8)
[2018-05-30 07:02] LABS: PLATELET COUNT 281 10x3/uL (130-400)
[2018-05-30 08:50] VITALS: BP 118/73
--- NOTE | 2018-05-30 10:55 | CN ---
PATIENT NAME:VIVIEN CHASE SR MEDICAL RECORD: [id number] : 57 LOCATION:D. D.2115 ADMIT DATE: 05/27/18 ACCOUNT: [id number] CONSULTING PHYSICIAN: SALBADOR SHEA MD REFERRING PHYSICIAN: ROSEMARIE HERNANDEZ MD DATE OF CONSULTATION: 05/27/2018 CARDIOLOGY CONSULT ADMITTING DIAGNOSES: 1. Congestive heart failure, chronic systolic dysfunction. 2. Ischemic cardiomyopathy. 3. Coronary artery disease. 4. Angina. 5. Elevated troponin. 6. Pneumonia. 7. Pulmonary edema. 8. Shortness of breath, dyspnea on exertion. 9. Hypertension. 10. Hyperlipidemia. HISTORY OF PRESENT ILLNESS: Mr. Chase is well known to us with a past history of coronary artery disease, multivessel PTCA stent, and an ischemic cardiomyopathy, last ejection fraction was 25%. He presents with chest pain, elevated troponin, shortness of breath. Chest x-ray is compatible with pneumonia as well as pulmonary edema, congestive heart failure. PHYSICAL EXAMINATION: GENERAL APPEARANCE: Well-nourished, well-developed, appears stated age. Level of distress, comfortable. PSYCHIATRIC: Mental status, alert, normal affect. Orientation, oriented to time, place and person. EYES: Lids and conjunctiva, noninjected. No discharge, no pallor. ENT: Lips, teeth, gums, normal dentition. Oropharynx, no cyanosis, no pallor. NECK: Carotid arteries, bilateral normal upstroke, no bruits, no thrills. JUGULAR VEINS: No jugular venous pressure or distention. CERVICAL LYMPH NODES: Nontender, nonenlarged. THYROID: Not enlarged. Nontender. No nodules. LUNGS: Respiratory effort, unlabored. CHEST: Normal curvature. No thoracic deformity. No chest wall tenderness. Percussion, resonant. Auscultation, clear. No wheezes, no rales, no rhonchi. CARDIOVASCULAR: Precordial exam, nondisplaced. No heaves or pericardial thrills. Rate and rhythm, regular. Heart sounds, normal S1, normal S2. No S3, no gallop, no rub. Systolic murmur, not heard. Diastolic murmur, not heard. EXTREMITIES: No cyanosis, no edema. Peripheral pulses, full and equal in all extremities, except as noted. No bruits appreciated. ABDOMEN: Soft, nondistended. Normal aorta. No bruit. Nontender. No masses. Liver, nontender, no hepatomegaly. Spleen, nontender, no splenomegaly. MUSCULOSKELETAL: No joint tenderness. No joint swelling. No erythema. NEUROLOGICAL: Normal gait, normal strength, normal tone. SKIN: Warm and dry. OVERALL IMPRESSION: Congestive heart failure. The elevated troponin is mildly elevated. No acute ST-T changes, most likely demand ischemia. He does have a significant cardiomyopathy. We will start him on dobutamine and Lasix. He has CONSULT REPORT [id number] VIVIEN CHASE SR responded to this in the past. Treatment of the pneumonia per primary. At this time, I do not think he needs repeat cardiac catheterization unless he continues to have anginal symptomatology once the shortness of breath and pulmonary edema and pneumonia have cleared. TRANSINT:[id number] Voice Confirmation ID: [id number] DOCUMENT ID: [id number] SALBADOR SHEA MD at 1055 CC: [id number] DICTATION DATE: 05/27/18 1114 HEAD HOST/HOSTESS: 05/27/18 1257 ADM IN [place] [id number] [place] [id number]
--- NOTE | 2018-05-30 11:52 | NUR ---
PRE-OPS GIVEN. TO FOUNDRY SUPERINTENDANT BY BED.
[2018-05-30 11:53] VITALS: BP 115/73
--- NOTE | 2018-05-30 12:57 | NUR ---
BACK FROM DIAMOND CLEAVER. VS WNL. RIGHT WRIST STABLE WITH TR BAND INTACT. WILL MONITOR.
--- NOTE | 2018-05-30 15:09 | NUR ---
TR BAND DCD WITHOUT BLEEDING OR HEMATOMA NOTED.
[2018-05-30 15:42] VITALS: BP 135/80
--- NOTE | 2018-05-30 19:54 | NUR ---
INITIAL ROUNDS AND ASSESSMENT COMPLETED. PT UP AND AMBULATING IN THE [place]. ALERT/ORIENTED. GREAT SPIRITS. IV DOBUTREX @ 11.2ML/HR INFUSING TO LFA. 88/SR PER TELEMETRY. MONITOR AND CPOC.
--- NOTE | 2018-05-30 20:44 | NUR ---
PT NOW BACK IN ROOM AND IN HIS BED. BEDTIME MEDS GIVEN. WATCHING TV. MONITOR AND CPOC.
[2018-05-30 21:03] VITALS: BP 123/65
--- NOTE | 2018-05-30 21:36 | NUR ---
PT NOW EATING A DINNER PROVIDED TO HIM BY A FRIEND. IV DOBUTREX INFUSING.
--- NOTE | 2018-05-31 05:42 | NUR ---
PT HAS SLEPT WELL THIS NIGHT. IV DOBUTREX INFUSING. NO DISTRESS. MONITOR AND CPOC.
[2018-05-31 06:25] VITALS: BP 118/69
[2018-05-31 06:36] LABS: BASOPHILS 0 % (0-2); EOSINOPHILS 0 % (0-7); HEMATOCRIT 30.9 % (42.0-54.0); HEMOGLOBIN 9.6 g/dL (13.5-17.5); IMMATURE GRANULOCYTES 0.4 % (0-5); LYMPHOCYTES 12.2 % (15-50); MCH 27.7 pg (26.0-34.0); MCHC 31.1 g/dL (31.0-37.0); MCV 89.3 fL (80.0-100.0); MEAN PLATELET VOLUME 8.8 fL (7.4-10.4); MONOCYTES 5.1 % (2-11); NEUTROPHILS 82.3 % (40-80); PLATELET COUNT 279 10x3/uL (130-400); RBC 3.46 10x6/uL (4.20-6.10); RDW 19.8 % (11.5-14.5)
[2018-05-31 06:55] LABS: ALBUMIN 2.4 g/dL (3.4-5.0); ANION GAP 12.4 mmol/L (8-16); BILIRUBIN - TOTAL 0.45 mg/dL (0.2-1.3); CALCIUM 8.4 mg/dL (8.5-10.1); CARBON DIOXIDE 29.6 mmol/L (21.0-32.0); CREATININE - SERUM 1.4 mg/dL (0.6-1.3); MAGNESIUM - SERUM 1.6 mg/dL (1.8-2.4); PROTEIN - SERUM 7.1 g/dL (6.4-8.2)
[2018-05-31 09:13] VITALS: BP 139/69
--- NOTE | 2018-05-31 10:19 | NUR ---
TELEMETRY SR. UP AMBULATING HALLWAY ON ROOM AIR. GAIT STEADY.
--- NOTE | 2018-05-31 12:24 | NUR ---
URINE SPECIMEN COLLECTED AND TAKEN TO LAB. WILL MONITOR.
--- NOTE | 2018-05-31 12:37 | MORECARE ---
CASE MANAGEMENT DISCHARGE SUMMARY PATIENT: VIVIEN REYES SR UNIT: [id number] ADM DATE: 05/27/18 AGE: 63 : 57 SEX: M ROOM/BED: D.2115 AUTHOR: CHARO SONG PHYSICIAN: REFERRING PHYSICIAN: ROSEMARIE HERNANDEZ MD DATE OF SERVICE: 05/31/18 Discharge Plan Patient Name: VIVIEN REYES [facility] [facility] 1955 Planned Disposition: Anticipated Discharge Date: Discharge Date: Expected LOS: Initial Reviewer: [email or web address] Initial Review Date: 05/31/2018 Generated: 05/31/18 1:37 pm DCPIA - Discharge Planning Initial Assessment Updated by [email or web address]: Iraida Lowe on 05/31/18 12:37 pm * Is the patient Alert and Oriented? Yes * PCP RAFAEL * Pharmacy [facility] * Preadmission Environment Home Alone * ADLs Independent * Equipment Cane Nebulizer Oxygen * List name and contact numbers for known caregivers / representatives who currently or will assist patient after discharge: BROTHER AGUILAR, * Additional services required to return to the preadmission environment? No * Can the patient safely return to the preadmission environment? Yes * Has this patient been hospitalized within the prior 30 days at any hospital? No Patient Name: VIVIEN REYES Page [phone] at 1237 All edits/amendments must be made on the electronic document DICTATION DATE: 05/31/18 1237 ENVIRONMENTAL TECHNICAL OFFICER: LEIGH 05/31/18 1237 RPT#: [id number] DC DATE: STATUS: ADM IN [facility] [address] [place] [address] END OF REPORT
--- NOTE | 2018-05-31 12:44 | MORECARE ---
CASE MANAGEMENT DISCHARGE SUMMARY PATIENT: VIVIEN REYES UNIT: [id number] ADM DATE: 05/27/18 AGE: 63 : 57 SEX: M ROOM/BED: D.2115 AUTHOR: CHARO SONG PHYSICIAN: REFERRING PHYSICIAN: ROSEMARIE HERNANDEZ MD DATE OF SERVICE: 05/31/18 Discharge Plan Patient Name: VIVIEN REYES Facility: [facility]:[place] : 1955 Planned Disposition: Anticipated Discharge Date: Discharge Date: Expected LOS: Initial Reviewer: [email or web address] Initial Review Date: 05/31/2018 Generated: 05/31/18 1:44 pm Comments DCP- Discharge Planning Updated by [email or web address]: Iraida Lowe on 05/31/18 11:[address] Patient Name: VIVIEN REYES Admission Status: ER Accout number: [id number] Admission Date: 05-27-2018 : 1955 Admission Diagnosis: Attending: ROSEMARIE HERNANDEZ Current LOS: 4 Anticipated DC Date: Planned Disposition: Primary Insurance: [facility] MEDICARE SOLUTIONS Discharge Planning Comments: CM MET WITH PATIENT ABOUT DC PLANNING/NEEDS. DENIES ANY NEEDS. DOES NOT WANT HH OR REHAB, HAS PLENTY OF BROTHERS THAT COME TO HIS HOME. CM WILL FOLLOW AND ASSIST NEEDED WITH DC PLANNING/NEEDS. Music Cataloguer: Iraida Lowe DCPIA - Discharge Planning Initial Assessment Updated by [email or web address]: Iraida Lowe on 05/31/18 12:37 pm * Is the patient Alert and Oriented? Yes * PCP RAFAEL * Pharmacy [facility] * Preadmission Environment Home Alone * ADLs Independent * Equipment Cane Nebulizer Oxygen * List name and contact numbers for known caregivers / representatives who currently or will assist patient after discharge: BROTHER AGUILAR, * Additional services required to return to the preadmission environment? No * Can the patient safely return to the preadmission environment? Yes * Has this patient been hospitalized within the prior 30 days at any hospital? No Last DP export: 05/31/18 11:37 a Patient Name: VIVIEN REYES Page [phone] at 1244 All edits/amendments must be made on the electronic document DICTATION DATE: 05/31/181243 WIRE PREPARATION WORKER: LEIGH 05/31/18 1244 RPT#: [id number] DC DATE: STATUS: ADM IN [facility] [address] [place] [address] END OF REPORT
[2018-05-31 12:45] LABS: UDS - AMPHET NEGATIVE QUAL (NEGATIVE); UDS - BARB NEGATIVE QUAL (NEGATIVE); UDS - BENZO POSITIVE QUAL (NEGATIVE); UDS - COCAINE NEGATIVE QUAL (NEGATIVE); UDS - OPIATE NEGATIVE QUAL (NEGATIVE); UDS - PCP NEGATIVE QUAL (NEGATIVE); UDS - THC NEGATIVE QUAL (NEGATIVE)
[2018-05-31 13:09] LABS: APPEARANCE CLEAR (CLEAR); BILIRUBIN NEGATIVE (NEGATIVE); COLOR YELLOW (YELLOW); GLUCOSE NEGATIVE (NEGATIVE); KETONE NEGATIVE (NEGATIVE); NITRITE NEGATIVE (NEGATIVE); PROTEIN TRACE mg/dL (NEGATIVE); SPECIFIC GRAVITY 1.005 (1.005-1.020); UROBILINOGEN NORMAL (NORMAL)
[2018-05-31 13:10] LABS: BACTERIA FEW /hpf (NONE SEEN); EPITHELIAL CELLS RARE /hpf (0-5); MUCUS <1+ /lpf (NONE SEEN); WHITE CELLS - URINE RARE /hpf (0-5)
[2018-05-31 13:13] VITALS: BP 129/82
[2018-05-31 16:41] VITALS: BP 140/84
--- NOTE | 2018-05-31 17:16 | MORECARE ---
CASE MANAGEMENT DISCHARGE SUMMARY PATIENT: VIVIEN REYES UNIT: [id number] ADM DATE: 05/27/18 AGE: 63 : 57 SEX: M ROOM/BED: D.2115 AUTHOR: CHARO SONG PHYSICIAN: REFERRING PHYSICIAN: ROSEMARIE HERNANDEZ MD DATE OF SERVICE: 05/31/18 Discharge Plan Patient Name: VIVIEN REYES [facility] [facility] 1955 Planned Disposition: Home Anticipated Discharge Date: 05/31/18 Discharge Date: Expected LOS: 4 Initial Reviewer: [email or web address] Initial Review Date: 05/31/2018 Generated: 05/31/18 6:16 pm Comments DCP- Discharge Planning Updated by [email or web address]: Iraida Lowe on 05/31/18 11:[address] Patient Name: VIVIEN REYES Admission Status: ER Accout number: [id number] Admission Date: 05-27-2018 : 1955 Admission Diagnosis: Attending: ROSEMARIE HERNANDEZ Current LOS: 4 Anticipated DC Date: Planned Disposition: Primary Insurance: [facility] MEDICARE SOLUTIONS Discharge Planning Comments: CM MET WITH PATIENT ABOUT DC PLANNING/NEEDS. DENIES ANY NEEDS. DOES NOT WANT HH OR REHAB, HAS PLENTY OF BROTHERS THAT COME TO HIS HOME. CM WILL FOLLOW AND ASSIST NEEDED WITH DC PLANNING/NEEDS. Finished Cloth Examiner: Iraida Lowe DCPIA - Discharge Planning Initial Assessment Updated by [email or web address]: Iraida Lowe on 05/31/18 12:37 pm * Is the patient Alert and Oriented? Yes * PCP RAFAEL * Pharmacy [facility] * Preadmission Environment Home Alone * ADLs Independent * Equipment Cane Nebulizer Oxygen * List name and contact numbers for known caregivers / representatives who currently or will assist patient after discharge: JEFFBROTHER, * Additional services required to return to the preadmission environment? No * Can the patient safely return to the preadmission environment? Yes * Has this patient been hospitalized within the prior 30 days at any hospital? No Coverage Notice Reviewer: [email or web address] Hudson Lowe Notice Issued Date-Time: 05/31/2018 17:13 Notice Type: IM Discharge Notice Notice Delivered To: Patient Relationship to Patient: Self Director Oncology Name: Delivery Method: HAND - Hand Delivered Shae Days: Prior Verbal Notification: Recipient Understood Notice: Yes Recipient Signature: Yes Med Rec Note Co-signed by Attending: Coverage Notice Comment: Last DP export: 05/31/18 11:44 a Patient Name: VIVIEN REYES Page [phone] at 1716 All edits/amendments must be made on the electronic document DICTATION DATE: 05/31/181714 MANAGER PUBLISHING: LEIGH 05/31/181714 RPT#: [id number] DC DATE: STATUS: ADM IN [facility] [address] [place] [address] END OF REPORT
--- NOTE | 2018-05-31 17:23 | MORECARE ---
CASE MANAGEMENT DISCHARGE SUMMARY PATIENT: VIVIEN REYES SR UNIT: [id number] ADM DATE: 05/27/18 AGE: 63 : 57 SEX: M ROOM/BED: D.7214 AUTHOR: CHARO SONG PHYSICIAN: REFERRING PHYSICIAN: ROSEMARIE HERNANDEZ MD DATE OF SERVICE: 05/31/18 Discharge Plan Patient Name: VIVIEN REYES Facility: [facility]:[place] : 1955 Planned Disposition: Home Anticipated Discharge Date: 05/31/18 Discharge Date: Expected LOS: 4 Initial Reviewer: [email or web address] Initial Review Date: 05/31/2018 Generated: 05/31/18 6:23 pm Comments DCP- Discharge Planning Updated by [email or web address]: Iraida Lowe on 05/31/18 4:[address] Patient Name: VIVIEN REYES Encounter No: [id number] : 1955 Primary Insurance: [facility] MEDICARE SOLUTIONS Anticipated DC Date: 05-31-2018 Planned Disposition: Home External Planned Provider: : DCP follow-up note: Patient and family in agreement with discharge plan. No changes to plan. [facility] family member to picker. Patient expecting dc today. Case management will follow and assist as needed. Iraida Lowe DCP- Discharge Planning Updated by [email or web address]: Iraida Lowe on 05/31/18 11:[address] Patient Name: VIVIEN REYES Admission Status: ER Accout number: [id number] Admission Date: 05-27-2018 : 1955 Admission Diagnosis: Attending: ROSEMARIE HERNANDEZ Current LOS: 4 Anticipated DC Date: Planned Disposition: Primary Insurance: [facility] MEDICARE SOLUTIONS Discharge Planning Comments: CM MET WITH PATIENT ABOUT DC PLANNING/NEEDS. DENIES ANY NEEDS. STATES DOES NOT WANT HH OR REHAB, STATES HAS PLENTY OF BROTHERS THAT COME TO HIS HOME. CM WILL FOLLOW AND ASSIST NEEDED WITH DC PLANNING/NEEDS. Automatic Machines Supervisor: Iraida Lowe DCPIA - Discharge Planning Initial Assessment Updated by [email or web address]: Iraida Loew on 05/31/18 12:37 pm * Is the patient Alert and Oriented? Yes * PCP RAFAEL * Pharmacy [facility] * Preadmission Environment Home Alone * ADLs Independent * Equipment Cane Nebulizer Oxygen * List name and contact numbers for known caregivers / representatives who currently or will assist patient after discharge: BROTHER AGUILAR, * Additional services required to return to the preadmission environment? No * Can the patient safely return to the preadmission environment? Yes * Has this patient been hospitalized within the prior 30 days at any hospital? No Coverage Notice Reviewer: [email or web address] Hudson Lowe Notice Issued Date-Time: 05/31/2018 17:13 Notice Type: IM Discharge Notice Notice Delivered To: Patient Relationship to Patient: Self French Teacher Name: Delivery Method: HAND - Hand Delivered Shae Days: Prior Verbal Notification: Recipient Understood Notice: Yes Recipient Signature: Yes Med Rec Note Co-signed by Attending: Coverage Notice Comment: Last DP export: 05/31/18 4:16 p Patient Name: VIVIEN REYES Page 59469 at 1723 All edits/amendments must be made on the electronic document DICTATION DATE: 05/31/181722 BAG BUILDER: LEIGH 05/31/181722 RPT#: [id number] DC DATE: STATUS: ADM IN [facility] [address] [place] [address] END OF REPORT
--- NOTE | 2018-05-31 19:47 | NUR ---
RESUMING PATIENT CARE. PATIENT IS ALERT AND ORIENTED, RESTING IN BED. RESPIRATIONS ARE EVEN AND UNLABORED. NO S/S OF DISTRESS. NO C/O PAIN. CALL LIGHT WITHIN REACH. WILL CPOC.
[2018-05-31 21:13] VITALS: BP 120/72
--- NOTE | 2018-06-01 04:12 | NUR ---
PATIENT AWAKE WALKING AROUND UNIT. PATIENT ASKED FOR A SNACK WHICH WAS GIVEN. WILL CPOC
[2018-06-01 05:13] VITALS: BP 124/72
[2018-06-01 05:51] LABS: BASOPHILS 0.1 % (0-2); EOSINOPHILS 0.1 % (0-7); HEMATOCRIT 30.4 % (42.0-54.0); HEMOGLOBIN 9.7 g/dL (13.5-17.5); IMMATURE GRANULOCYTES 0.5 % (0-5); LYMPHOCYTES 12.7 % (15-50); MCH 28.1 pg (26.0-34.0); MCHC 31.9 g/dL (31.0-37.0); MCV 88.1 fL (80.0-100.0); MEAN PLATELET VOLUME 9.1 fL (7.4-10.4); MONOCYTES 3.7 % (2-11); NEUTROPHILS 82.9 % (40-80); PLATELET COUNT 321 10x3/uL (130-400); RBC 3.45 10x6/uL (4.20-6.10); RDW 19.2 % (11.5-14.5); WBC 14.7 10x3/uL (4.8-10.8)
[2018-06-01 05:56] LABS: ALBUMIN 2.6 g/dL (3.4-5.0); ANION GAP 12.2 mmol/L (8-16); BILIRUBIN - TOTAL 0.48 mg/dL (0.2-1.3); CALCIUM 8.6 mg/dL (8.5-10.1); CREATININE - SERUM 1.5 mg/dL (0.6-1.3); MAGNESIUM - SERUM 1.7 mg/dL (1.8-2.4); POTASSIUM - SERUM 4.2 mmol/L (3.5-5.1); PROTEIN - SERUM 7.2 g/dL (6.4-8.2)
[2018-06-01 08:18] VITALS: BP 112/73
[2018-06-01 11:13] VITALS: BP 120/74
[2018-06-01] MEDS ORDERED: BUMEX2 MG PO (12:38)
--- NOTE | 2018-06-01 15:35 | NUR ---
IV AND TELEMETRY DCD. DC PLANS GIVEN. UNDERSTANDING VOICED. ESCORTED TO CAR BY W/C.
--- NOTE | 2018-06-02 07:54 | MORECARE ---
CASE MANAGEMENT DISCHARGE SUMMARY PATIENT: VIVIEN REYES SR UNIT: [id number] ADM DATE: 05/27/18 AGE: 63 : 57 SEX: M ROOM/BED: D.2825 AUTHOR: CHARO SONG PHYSICIAN: REFERRING PHYSICIAN: ROSEMARIE HERNANDEZ MD DATE OF SERVICE: 06/02/18 Discharge Plan Patient Name: VIVIEN REYES Facility: [facility]:[place] : 1955 Planned Disposition: Home Anticipated Discharge Date: 06/01/18 Discharge Date: 06/01/2018 Expected LOS: 5 Initial Reviewer: [email or web address] Initial Review Date: 05/31/2018 Generated: 06/02/18 8:54 am Comments DCP- Discharge Planning Updated by [email or web address]: Iraida Lowe on 05/31/18 4:[address] Patient Name: VIVIEN REYES Encounter No: [id number] : 1955 Primary Insurance: [facility] MEDICARE SOLUTIONS Anticipated DC Date: 05-31-2018 Planned Disposition: Home External Planned Provider: : DCP follow-up note: Patient and family in agreement with discharge plan. No changes to plan. [facility] family member to milk pickup driver. Patient expecting dc today. Case management will follow and assist as needed. Iraida Lowe DCP- Discharge Planning Updated by [email or web address]: Iraida Lowe on 05/31/18 11:[address] Patient Name: VIVIEN REYES Admission Status: ER Accout number: [id number] Admission Date: 05-27-2018 : 1955 Admission Diagnosis: Attending: ROSEMARIE HERNANDEZ Current LOS: 4 Anticipated DC Date: Planned Disposition: Primary Insurance: [facility] MEDICARE SOLUTIONS Discharge Planning Comments: CM MET WITH PATIENT ABOUT DC PLANNING/NEEDS. DENIES ANY NEEDS. DOES NOT WANT HH OR REHAB, STATES HAS PLENTY OF BROTHERS THAT COME TO HIS HOME. CM WILL FOLLOW AND ASSIST NEEDED WITH DC PLANNING/NEEDS. Dental Floss Packer: Iraida Lowe DCPIA - Discharge Planning Initial Assessment Updated by [email or web address]: Iraida Lowe on 05/31/18 12:37 pm * Is the patient Alert and Oriented? Yes * PCP RAFAEL * Pharmacy [facility] * Preadmission Environment Home Alone * ADLs Independent * Equipment Cane Nebulizer Oxygen * List name and contact numbers for known caregivers / representatives who currently or will assist patient after discharge: BROTHER AGUILAR, * Additional services required to return to the preadmission environment? No * Can the patient safely return to the preadmission environment? Yes * Has this patient been hospitalized within the prior 30 days at any hospital? No Coverage Notice Reviewer: [id number] Hudson Lowe Notice Issued Date-Time: 05/31/2018 17:13 Notice Type: IM Discharge Notice Notice Delivered To: Patient Relationship to Patient: Self Farmhand Name: Delivery Method: HAND - Hand Delivered Shae Days: Prior Verbal Notification: Recipient Understood Notice: Yes Recipient Signature: Yes Med Rec Note Co-signed by Attending: Coverage Notice Comment: Last DP export: 05/31/18 4:23 p Patient Name: VIVIEN REYES Page 52624 at 0754 All edits/amendments must be made on the electronic document DICTATION DATE: 06/02/18 0753 INSIDE B2B SALES: LEIGH 06/02/18 0753 RPT#: [id number] DC DATE:06/01/18 STATUS: DIS IN [facility] [address] [place] [address] END OF REPORT
--- NOTE | 2018-06-03 14:57 | OP ---
PATIENT NAME: VIVIEN REYES SR MEDICAL RECORD: [id number] :57 LOCATION:D.M2 D.2115 ADMISSION DATE:05/27/18 SURGEON: SALBADOR SHEA MD DATE OF OPERATION: 05/30/2018 PROCEDURES: 1. Left heart catheterization. 2. Selective coronary angiography. 3. Left ventriculogram. INDICATION: Angina, congestive heart failure, cardiomyopathy, coronary artery disease. PROCEDURE IN DETAIL: After informed consent was obtained and after a detailed description of risks, benefits as well as alternative therapies, the patient elected to proceed with angiogram and heart catheterization. The right radial area was prepped and draped in normal sterile fashion. Right radial artery was cannulated via modified Seldinger technique with placement of 6-Divehi sheath. All catheters exchanged through this sheath. FINDINGS: The left ventriculogram was performed in standard 30-degree GARCIA view, reveals global hypokinesis throughout all segments. Overall ejection fraction in the 10% to 15% range. SELECTIVE CORONARY ANGIOGRAPHY: 1. Left main showed no significant angiographic disease. 2. Left anterior descending has previously placed stent that is widely patent with no significant restenosis. No disease elsewise throughout the LAD or its branches. 3. Left circumflex has moderate irregularities, but no flow-limiting stenosis. 4. The right coronary artery has previously placed stents, these are widely patent with no significant restenosis. No disease elsewise of significance throughout the RCA or its branches. OVERALL IMPRESSION: Severe ischemic cardiomyopathy. Center medical management on treatment of the cardiomyopathy. TRANSINT:[id number] Voice Confirmation ID: [id number] DOCUMENT ID: [id number] SALBADOR SHEA MD at 1457 CC: [id number] DICTATION DATE: 05/30/18 1231 ROLL LINE OPERATOR: 05/30/18 1243 DIS IN 06/01/18 [facility] [address] [place] [id number]
== END 2018-06-01 15:36 | disposition home or self-care (01) | DRG 286 ==
LOC: D.ER 08:33 → D.M2 11:18 → D.EDHOLD 11:18 → D.M2 11:46
PROVIDERS: Family Medicine; Internal Medicine Interventional Cardiology; Internal Medicine Nephrology; ADMIT Emergency Medicine; ATTEND Emergency Medicine
PROC: B2151ZZ Fluoroscopy of Left Heart using Low Osmolar Contrast (ICD-10-PCS; 2018-05-30)
PROC: 4A023N7 Measurement of Cardiac Sampling and Pressure, Left Heart, Percutaneous Approach (ICD-10-PCS; 2018-05-30)
PROC: B2111ZZ Fluoroscopy of Multiple Coronary Arteries using Low Osmolar Contrast (ICD-10-PCS; principal; 2018-05-30 12:30)
DX: I13.0 Hypertensive heart and chronic kidney disease with heart failure and stage 1 through stage 4 chronic kidney disease, or unspecified chronic kidney disease (principal); I50.23 Acute on chronic systolic (congestive) heart failure; J96.01 Acute respiratory failure with hypoxia; J44.0 Chronic obstructive pulmonary disease with (acute) lower respiratory infection; I25.5 Ischemic cardiomyopathy; I25.119 Atherosclerotic heart disease of native coronary artery with unspecified angina pectoris; N18.3 Chronic kidney disease, stage 3 (moderate); N28.9 Disorder of kidney and ureter, unspecified; E78.5 Hyperlipidemia, unspecified; J20.9 Acute bronchitis, unspecified

== ENCOUNTER → 2018-08-16 12:43 | Outpatient (CLI) | payer MEDICARE, MEDICAID ==
[2018-05-28 09:10] VITALS: BMI 22.5
[~2018-08-16 12:43] MED LIST changes: +BUMEX2 MG PO
== END | disposition home or self-care (01) ==
LOC: D.RT 12:43
PROVIDERS: ATTEND Internal Medicine Pulmonary Disease
DX: J44.9 Chronic obstructive pulmonary disease, unspecified (principal)

== ENCOUNTER 2018-09-26 23:08 | Inpatient (IN) | payer MEDICARE, MEDICAID ==
[~2018-09-26] VITALS: Ht 185.4 cm; Wt 87.0 kg
[2018-09-26 23:58] LABS: APTT 33.7 SECONDS (22.8-39.4); INR 1.44 (0.85-1.17)
--- NOTE | 2018-09-27 | NUR ---
PT O2 SAT 90% ON RA. PT PLACED ON 2L.
[2018-09-27 00:02] LABS: ALBUMIN 2.9 g/dL (3.4-5.0); ALKALINE PHOSPHATASE 454 U/L (46-116); ALT (SGPT) 18 U/L (10-68); BILIRUBIN - TOTAL 1.47 mg/dL (0.2-1.3); CALC OSMOLALITY 263 mosm/kg (275-300); CALCIUM 8.9 mg/dL (8.5-10.1); CARBON DIOXIDE 24.5 mmol/L (21.0-32.0); CHLORIDE - SERUM 95 mmol/L (98-107); CREATININE - SERUM 1.4 mg/dL (0.6-1.3); GLUCOSE 137 mg/dL (74-106); POTASSIUM - SERUM 4.4 mmol/L (3.5-5.1); SODIUM 128 mmol/L (136-145); UREA NITROGEN 26 mg/dL (7-18); eGFR NON AFRICAN AMERICAN 54 mL/min (90-120)
[2018-09-27 00:08] LABS: D-DIMER-QUANTITATIVE 3.3 ug/mLFEU (0.20-0.54)
[2018-09-27 00:15] LABS: BASOPHILS 0.2 % (0-2); EOSINOPHILS 0.5 % (0-7); HEMATOCRIT 32.9 % (42.0-54.0); HEMOGLOBIN 10.6 g/dL (13.5-17.5); IMMATURE GRANULOCYTES 0.3 % (0-5); LYMPHOCYTES 6.2 % (15-50); MCH 25.7 pg (26.0-34.0); MCHC 32.2 g/dL (31.0-37.0); MCV 79.9 fL (80.0-100.0); MEAN PLATELET VOLUME 9.1 fL (7.4-10.4); MONOCYTES 10.7 % (2-11); NEUTROPHILS 82.1 % (40-80); PLATELET COUNT 270 10x3/uL (130-400); RBC 4.12 10x6/uL (4.20-6.10); WBC 13.2 10x3/uL (4.8-10.8)
[2018-09-27 00:20] LABS: AMYLASE - SERUM 159 U/L (25-115); CKMB 3.7 U/L (0.0-3.6); CREATINE KINASE 157 UL (21-232); LIPASE 1395 U/L (73-393); MAGNESIUM - SERUM 1.9 mg/dL (1.8-2.4); PRO BNP 12621 pg/mL (0-125)
[2018-09-27 00:24] LABS: TROPONIN-I 0.142 ng/mL (0.000-0.060)
--- NOTE | 2018-09-27 00:24 | NUR ---
PT LEFT ED VIA STRETCHER FOR CT.
[2018-09-27 01:00] VITALS: BP 121/78
--- NOTE | 2018-09-27 01:08 | NUR ---
PT SLEEPING ON BED, NO S/S OF ACUTE DISTRESS NOTED.
[2018-09-27 03:37] VITALS: BP 134/84; BMI 21.1
[2018-09-27 05:43] LABS: BASOPHILS 0.2 % (0-2); EOSINOPHILS 0.5 % (0-7); HEMATOCRIT 33.7 % (42.0-54.0); HEMOGLOBIN 10.5 g/dL (13.5-17.5); IMMATURE GRANULOCYTES 0.3 % (0-5); MCH 25.3 pg (26.0-34.0); MCHC 31.2 g/dL (31.0-37.0); MCV 81.2 fL (80.0-100.0); MEAN PLATELET VOLUME 9.1 fL (7.4-10.4); MONOCYTES 12.9 % (2-11); NEUTROPHILS 77.1 % (40-80); PLATELET COUNT 294 10x3/uL (130-400); RBC 4.15 10x6/uL (4.20-6.10); WBC 12.8 10x3/uL (4.8-10.8)
[2018-09-27 06:11] LABS: ALBUMIN 2.9 g/dL (3.4-5.0); ALKALINE PHOSPHATASE 441 U/L (46-116); ALT (SGPT) 17 U/L (10-68); AMYLASE - SERUM 178 U/L (25-115); BILIRUBIN - TOTAL 1.37 mg/dL (0.2-1.3); CALC OSMOLALITY 267 mosm/kg (275-300); CARBON DIOXIDE 24.6 mmol/L (21.0-32.0); CHLORIDE - SERUM 96 mmol/L (98-107); CKMB 3.6 U/L (0.0-3.6); CREATINE KINASE 136 UL (21-232); CREATININE - SERUM 1.4 mg/dL (0.6-1.3); FERRITIN 46 ng/mL (3-244); GLUCOSE 98 mg/dL (74-106); LIPASE 1424 U/L (73-393); MAGNESIUM - SERUM 1.9 mg/dL (1.8-2.4); PHOSPHOROUS 4.6 mg/dL (2.5-4.9); POTASSIUM - SERUM 4.6 mmol/L (3.5-5.1); SODIUM 131 mmol/L (136-145); UREA NITROGEN 26 mg/dL (7-18); eGFR NON AFRICAN AMERICAN 54 mL/min (90-120)
[2018-09-27 06:23] LABS: TROPONIN-I 0.146 ng/mL (0.000-0.060)
--- NOTE | 2018-09-27 08:53 | NUR ---
ARRIVED FROMMED SURG. AWAKE AND ORIENTED.
--- NOTE | 2018-09-27 09:34 | NUR ---
DOBUTAMINE GTT STARTED. MONITOR SHOWS 81 SR. EDUCATED PT TO USE URINAL FOR OUTPUT SO WE CAN GET AN ACCURATE I&O
[2018-09-27 11:57] LABS: % SATURATION 7 % (15-55); IRON 22 ug/dl (35-150); TOTAL IRON BIND CAPACITY 314 ug/dl (260-445); UNSAT IRON BIND CAPACITY 292 ug/dl (150-375)
[2018-09-27 12:04] VITALS: Ht 185.4 cm; Wt 87.0 kg
[2018-09-27 12:35] VITALS: BP 148/73
[2018-09-27 12:46] LABS: CKMB 3.6 U/L (0.0-3.6); CREATINE KINASE 119 UL (21-232)
[2018-09-27 12:50] LABS: TROPONIN-I 0.141 ng/mL (0.000-0.060)
[2018-09-27 15:11] VITALS: BP 132/74
[2018-09-27 17:52] LABS: CKMB 3.5 U/L (0.0-3.6); CREATINE KINASE 109 UL (21-232)
[2018-09-27 17:57] LABS: TROPONIN-I 0.147 ng/mL (0.000-0.060)
--- NOTE | 2018-09-27 19:05 | NUR ---
AWAKE AND ALERT SKIN WARM AND A BIT DIAPHORETIC. LCTA BED IS LOW AND LOCKED CALL LIGHT IN REACH OF PT,,, OBSERVING NPO
[2018-09-27 20:00] VITALS: BP 129/82
[2018-09-28] VITALS: BP 132/76
--- NOTE | 2018-09-28 00:06 | NUR ---
FOUND IV TO BE INFILTRATED DCED WITH CATH INTACT....RESTARTED X2 TRIES TO RT UPPER ARM
[2018-09-28 00:39] LABS: CKMB 3.5 U/L (0.0-3.6); CREATINE KINASE 113 UL (21-232)
[2018-09-28 00:46] LABS: TROPONIN-I 0.179 ng/mL (0.000-0.060)
[2018-09-28 05:59] LABS: BASOPHILS 0.5 % (0-2); EOSINOPHILS 1.2 % (0-7); HEMATOCRIT 29.5 % (42.0-54.0); IMMATURE GRANULOCYTES 0.3 % (0-5); LYMPHOCYTES 7.3 % (15-50); MCH 25.3 pg (26.0-34.0); MCHC 30.5 g/dL (31.0-37.0); MCV 82.9 fL (80.0-100.0); MEAN PLATELET VOLUME 8.5 fL (7.4-10.4); MONOCYTES 12.8 % (2-11); NEUTROPHILS 77.9 % (40-80); RBC 3.56 10x6/uL (4.20-6.10); RDW 19.3 % (11.5-14.5); WBC 10.1 10x3/uL (4.8-10.8)
[2018-09-28 06:08] LABS: PLATELET COUNT 202 10x3/uL (130-400)
[2018-09-28 06:26] LABS: ANION GAP 14.9 mmol/L (8-16); CALCIUM 8.1 mg/dL (8.5-10.1); CARBON DIOXIDE 23.9 mmol/L (21.0-32.0); CREATININE - SERUM 1.5 mg/dL (0.6-1.3); MAGNESIUM - SERUM 1.7 mg/dL (1.8-2.4); PHOSPHOROUS 3.9 mg/dL (2.5-4.9)
[2018-09-28 06:27] LABS: POTASSIUM - SERUM 3.8 mmol/L (3.5-5.1)
--- NOTE | 2018-09-28 07:30 | NUR ---
ASSESSMENT COMPLETED. ALERT AND ORIENTED. UP AB SKY. IV TO RIGHT UPPER ARM. NS AT 100 AND DOBUTAMINE AT 10.9. NPO. TELEMERTY SHOWS SR WITH RARE PVCS WITH A HEARTRATE OF 92. SR UP WITH CALL LIGHT IN REACH. WILL MONITOR
[2018-09-28 09:15] VITALS: BP 127/68
[2018-09-28 12:16] VITALS: BP 123/50
--- NOTE | 2018-09-28 16:12 | NUR ---
PT ASLEEP IN BED. NO NEEDS NOTED. SINUS.
--- NOTE | 2018-09-28 16:40 | NUR ---
PT HAS SCRATCHED HIS BACK AND CREATED A LESION IN THE LEFT MIDDLE OF HIS BACK. CLEANED AREA AND PLACED A BANDAGE.
[2018-09-28 17:37] VITALS: BP 138/75
[2018-09-28 20:00] VITALS: BP 103/74
--- NOTE | 2018-09-28 22:30 | NUR ---
REPORT RECIEVED AND ROUNDING COMPLETE. BEGINING PATIENT CARE WITH ASSISTANCE FROM RASHAD LAZARO RN.
[2018-09-29 02:42] LABS: UDS - AMPHET NEGATIVE QUAL (NEGATIVE); UDS - BARB NEGATIVE QUAL (NEGATIVE); UDS - BENZO NEGATIVE QUAL (NEGATIVE); UDS - COCAINE POSITIVE QUAL (NEGATIVE); UDS - OPIATE POSITIVE QUAL (NEGATIVE); UDS - PCP NEGATIVE QUAL (NEGATIVE); UDS - THC NEGATIVE QUAL (NEGATIVE)
[2018-09-29 02:47] LABS: APPEARANCE CLEAR (CLEAR); BILIRUBIN NEGATIVE (NEGATIVE); COLOR DK YELLOW (YELLOW); GLUCOSE NEGATIVE (NEGATIVE); KETONE NEGATIVE (NEGATIVE); NITRITE NEGATIVE (NEGATIVE); PROTEIN TRACE mg/dL (NEGATIVE)
[2018-09-29 02:48] LABS: BACTERIA FEW /hpf (NONE SEEN); EPITHELIAL CELLS 0-5 /hpf (0-5); RED CELLS - URINE NONE SEEN /hpf (0-5); WHITE CELLS - URINE 0-5 /hpf (0-5)
[2018-09-29 04:00] VITALS: BP 121/70
[2018-09-29 06:39] LABS: BASOPHILS 0.3 % (0-2); EOSINOPHILS 3.6 % (0-7); HEMATOCRIT 28.7 % (42.0-54.0); HEMOGLOBIN 8.9 g/dL (13.5-17.5); IMMATURE GRANULOCYTES 0.2 % (0-5); LYMPHOCYTES 9.1 % (15-50); MCH 25.2 pg (26.0-34.0); MCV 81.3 fL (80.0-100.0); MEAN PLATELET VOLUME 8.7 fL (7.4-10.4); MONOCYTES 11.1 % (2-11); NEUTROPHILS 75.7 % (40-80); PLATELET COUNT 198 10x3/uL (130-400); RBC 3.53 10x6/uL (4.20-6.10); RDW 19.1 % (11.5-14.5); WBC 9.5 10x3/uL (4.8-10.8)
--- NOTE | 2018-09-29 06:45 | NUR ---
PATIENT CALLED ME INTO ROOM TO SHOW ME THAT HIS RIGHT AC PIV WAS BLEEDING AT SITE. PATIENT STATED HE SCRATCHED HIS ARM AND PULLED ON HIS IV. RESITED PIV TO ROIGHT FOREARM AND REMOVED IV FROM AC. CATH INTACT AND NO LONGER BLEEDING AT RIGHT AC SITE. REHOOKED UP FLUIDS. NO OTHER NEEDS AT THIS TIME CALL LIGHT WITHIN REACH AND BED IN LOWEST POSITION.
[2018-09-29 07:05] LABS: ANION GAP 13.5 mmol/L (8-16); CALCIUM 8.2 mg/dL (8.5-10.1); CARBON DIOXIDE 26.1 mmol/L (21.0-32.0); CREATININE - SERUM 1.6 mg/dL (0.6-1.3); MAGNESIUM - SERUM 1.7 mg/dL (1.8-2.4); POTASSIUM - SERUM 3.6 mmol/L (3.5-5.1)
[2018-09-29 07:07] LABS: PHOSPHOROUS 2.9 mg/dL (2.5-4.9)
--- NOTE | 2018-09-29 07:45 | NUR ---
INITIAL ROUNDING, PATIENT IS SLEEPING ON HIS RIGHT SIDE, LIGHTS OFF. CALL LIGHT IN REACH. ON ROOM AIR, O2 TUBING ON THE PILLOW. NO S/S OF SOB AT THIS TIME. WHITE BOARD UPDATED
[2018-09-29 08:03] VITALS: BP 115/54
[2018-09-29 12:06] VITALS: BP 112/57
--- NOTE | 2018-09-29 16:07 | MORECARE ---
CASE MANAGEMENT DISCHARGE SUMMARY PATIENT: VIVIEN REYES SR UNIT: [id number] ADM DATE: 09/27/18 AGE: 63 : 57 SEX: M ROOM/BED: D.8950 AUTHOR: CHARO SONG PHYSICIAN: REFERRING PHYSICIAN: VAHE KRAUSE MD DATE OF SERVICE: 09/29/18 Discharge Plan Patient Name: VIVIEN REYES [facility] : 1955 Planned Disposition: Home Anticipated Discharge Date: Discharge Date: Expected LOS: Initial Reviewer: [email or web address] Initial Review Date: 09/29/2018 Generated: 09/29/18 5:07 pm Patient Name: VIVIEN REYES Page [phone] at 1607 All edits/amendments must be made on the electronic document DICTATION DATE: 09/29/181605 SEISMOGRAPH OPERATOR: LEIGH 09/29/181605 RPT#: [id number] DC DATE: STATUS: ADM IN [facility] [address] [place] [address] END OF REPORT
--- NOTE | 2018-09-29 16:16 | MORECARE ---
CASE MANAGEMENT DISCHARGE SUMMARY PATIENT: VIVIEN REYES UNIT: [id number] ADM DATE: 09/27/18 AGE: 63 : 57 SEX: M ROOM/BED: D.8243 AUTHOR: NOHEMI,DOC PHYSICIAN: REFERRING PHYSICIAN: VAHE KRAUSE MD DATE OF SERVICE: 09/29/18 Discharge Plan Patient Name: VIVIEN REYES Facility: [facility]:[place] : 1955 Planned Disposition: Home Anticipated Discharge Date: Discharge Date: Expected LOS: Initial Reviewer: [id number] Initial Review Date: 09/29/2018 Generated: 09/29/18 5:16 pm Comments DCP- Discharge Planning Updated by [id number]: Robel Brown on 09/29/18 3:[address] Patient Name: VIVIEN REYES Admission Status: ER Accout number: [id number] Admission Date: 09-27-2018 : 1955 Admission Diagnosis: Attending: VAHE GAYTAN Current LOS: 2 Anticipated DC Date: Planned Disposition: Home Primary Insurance: [facility] MEDICARE SOLUTIONS Discharge Planning Comments: CM MET WITH PT IN ROOM TO DISCUSS DISCHARGE PLANNING AND NEEDS. PT REPORTS LIVING AT HOME INDEPENDENTLY WITH A ROOMMATE. PT HAS CANE, OXYGEN AT NIGHT AND NEBULIZER FROM [facility]. PT HAS NO OUTSIDE SERVICES ASSISTING IN THE HOME. CM DISCUSSED AVAILABILITY OF HOME HEALTH, REHAB SERVICES AND MEDICAL EQUIPMENT. PT DENIES DISCHARGE NEEDS, REPORTS HIS ROOMMATE WILL PICK HIM UP FOR DISCHARGE HOME. IMPORTANT MESSAGE FROM MEDICARE PROVIDED AND EXPLAINED. PT PLANS TO DISCHARGE HOME WITH ROOMMATE. PT HAS NO ANTICIPATED DISCHARGE NEEDS AT THIS TIME. ROOMMATE TO ENAMEL BUFFER FOR DISCHARGE HOME. CM TO FOLLOW AND ASSIST NEEDED. Game Designer: Robel Brown DCPIA - Discharge Planning Initial Assessment Updated by [id number]: Robel Brown on 09/29/18 4:07 pm * Is the patient Alert and Oriented? Yes * How many steps to enter\exit or inside your home? * PCP DR. HALL * Pharmacy [facility] ([place] * Preadmission Environment Home with Family * ADLs Independent * Equipment Cane Nebulizer Oxygen * Other Equipment [facility] - MEDICAL EQUIPMENT PROVIDER * List name and contact numbers for known caregivers / representatives who currently or will assist patient after discharge: ALESIA FLORIAN, FRIEND, JEFF REYES, BROTHER, * Verbal permission to speak to the caregivers and representatives has been obtained from the patient. N/A * Community resources currently utilized None * Please name any agencies selected above. NONE * Additional services required to return to the preadmission environment? No * Can the patient safely return to the preadmission environment? Yes * Has this patient been hospitalized within the prior 30 days at any hospital? No Coverage Notice Reviewer: [id number] Hudson Brown Notice Issued Date-Time: 09/29/2018 9:55 Notice Type: IM Discharge Notice Notice Delivered To: Patient Relationship to Patient: Wellness Rn Name: Delivery Method: HAND - Hand Delivered Shae Days: Prior Verbal Notification: Recipient Understood Notice: Yes Recipient Signature: Yes Med Rec Note Co-signed by Attending: Coverage Notice Comment: Last DP export: 09/29/18 3:07 p Patient Name: VIVIEN REYES Page [id number] at 1616 All edits/amendments must be made on the electronic document DICTATION DATE: 09/29/18 161 TUFTER OPERATOR: LEIGH 09/29/18 1616 RPT#: [id number] DC DATE: STATUS: ADM IN [facility] [address] [place] [address] END OF REPORT
[2018-09-29 19:13] VITALS: BP 111/61
--- NOTE | 2018-09-29 19:20 | NUR ---
BED SIDE REPORT RECEIVED. PT SITTING ON SIDE OF BED. NO S/S OF DISTRESS. DOBUTAMINE INFUSING ORDERED TO RIGHT FOREARM. PT DENIES ANY NEEDS. NAME AND DATE PLACED ON BOARD. WILL CPOC
[2018-09-29 20:00] VITALS: BP 140/81
--- NOTE | 2018-09-29 22:21 | NUR ---
ENSURE GIVEN. PT GIVEN NIGHT TIME MEDICATIONS. RETIMING LOVENOX TO 0900 AND 2100 PT SITTING ON SIDE OF BED. NO S/S OF DISTRESS. WILL CPOC
[2018-09-30] VITALS: BP 117/67
--- NOTE | 2018-09-30 01:07 | NUR ---
PT HAS BLOOD IN MOUTH AND FEELS LIKE JAW AND NECK ARE SWELLING UP. CALLED DARRYL MACHINE OPERATOR FARMWORKER AND UPDATED ON PT STATUS. [facility] IS COMING TO ASSESS PT.
--- NOTE | 2018-09-30 01:19 | NUR ---
PT COMPLAINS OF NECK AND THROAT SWELLING. DARRYL BARTHOLOMEW IN ROOM. IV BENADRYL GIVEN AND WAITING FOR PRACHI TRACTOR OPERATOR LASER LEVELING TO PULL SOLU MEDROL. WILL GIVE ONCE AVALIBLE
--- NOTE | 2018-09-30 01:37 | NUR ---
SOLUMEDROL GIVEN. NURSE ASSISTING PT TO CT SCAN
[2018-09-30 01:42] LABS: BASOPHILS 0.2 % (0-2); EOSINOPHILS 5.4 % (0-7); HEMATOCRIT 28.7 % (42.0-54.0); HEMOGLOBIN 9.2 g/dL (13.5-17.5); IMMATURE GRANULOCYTES 0.3 % (0-5); LYMPHOCYTES 8.1 % (15-50); MCH 25.8 pg (26.0-34.0); MCHC 32.1 g/dL (31.0-37.0); MCV 80.6 fL (80.0-100.0); MEAN PLATELET VOLUME 8.6 fL (7.4-10.4); MONOCYTES 12.1 % (2-11); NEUTROPHILS 73.9 % (40-80); PLATELET COUNT 181 10x3/uL (130-400); RBC 3.56 10x6/uL (4.20-6.10); RDW 18.9 % (11.5-14.5); WBC 10.3 10x3/uL (4.8-10.8)
[2018-09-30 01:49] LABS: INR 1.4 (0.85-1.17); PROTIME 16.5 SECONDS (11.6-15.0)
--- NOTE | 2018-09-30 01:59 | NUR ---
PT BACK FROM CT SCAN. STILL GRUNTING AND STILL HAVING SOB. NO MORE BLOOD OUT OF MOUTH AT THIS TIME. DID SPIT PINK AFTER COUGHING. PT ON 2L O2 SAT IS 97% ORDERED PEPCID WILL GIVE ORDERED. PT DOBUTAMINIE PAUSED AT THIS TIME. WILL RESTART ONCE ABLE. WILL CPOC
[2018-09-30 04:00] VITALS: BP 147/76
--- NOTE | 2018-09-30 04:39 | NUR ---
PT BEING RESTLESS AND ASKING FOR BREATHING TREATMENT. RESP CALLED. MORPHINE AND ZOFRAN GIVEN FOR PAIN AND NAUSEA. PT NOW GETTING A BREATHING TREATMENT. WILL CPOC
--- NOTE | 2018-09-30 05:12 | NUR ---
PT NOW RESTING IN BED. NO COMPLAINTS AT THIS TIME. WILL CPOC
[2018-09-30 06:16] LABS: BASOPHILS 0.2 % (0-2); EOSINOPHILS 1.4 % (0-7); HEMATOCRIT 29.3 % (42.0-54.0); HEMOGLOBIN 9.3 g/dL (13.5-17.5); IMMATURE GRANULOCYTES 0.3 % (0-5); LYMPHOCYTES 3.7 % (15-50); MCH 25.6 pg (26.0-34.0); MCHC 31.7 g/dL (31.0-37.0); MCV 80.7 fL (80.0-100.0); MONOCYTES 1.8 % (2-11); NEUTROPHILS 92.6 % (40-80); PLATELET COUNT 212 10x3/uL (130-400); RBC 3.63 10x6/uL (4.20-6.10); WBC 10.8 10x3/uL (4.8-10.8)
[2018-09-30 06:42] LABS: ANION GAP 12.4 mmol/L (8-16); CALCIUM 8.3 mg/dL (8.5-10.1); CARBON DIOXIDE 25.6 mmol/L (21.0-32.0); CREATININE - SERUM 1.5 mg/dL (0.6-1.3); MAGNESIUM - SERUM 1.7 mg/dL (1.8-2.4); PHOSPHOROUS 2.7 mg/dL (2.5-4.9)
--- NOTE | 2018-09-30 06:43 | NUR ---
MORNING PROTONIX GIVEN. DOBUTAMINE INFUSING ORDERED. PT DENIES ANY NEEDS AT THIS TIME. NO S/S OF DISTRESS. WILL CPOC
[2018-09-30 08:13] VITALS: BP 129/79
--- NOTE | 2018-09-30 09:56 | NUR ---
I have reviewed this patient and I concur with the Shift Assessment completed by the Licensed Practical Nurse today this shift.
[2018-09-30 12:36] VITALS: BP 119/75
--- NOTE | 2018-09-30 17:27 | NUR ---
WITHOUT CHANGES OR DISTRESS NOTED AT THIS TIME. DENIES NEEDS
[2018-09-30 20:00] VITALS: BP 129/80
--- NOTE | 2018-09-30 20:13 | NUR ---
RECIEVED UP AMB IN HALLWAY. DIRECTED BACK TO ROOM. ALERT AND ORIENTED X4. UP AD SKY. ON RA AT THIS TIME. LUNG SOUNDS CLEAR BILAT.. IV TO RIGHT FA WITH DOBUATREX INFUSING AT 10.9CC/HR. TELEMETRY IN PLACE. DENIES ANY NEEDS AT THIS TIME.
[2018-10-01] VITALS: BP 140/82
[2018-10-01 04:00] VITALS: BP 125/81
[2018-10-01 05:44] LABS: BASOPHILS 0.1 % (0-2); EOSINOPHILS 0.2 % (0-7); HEMATOCRIT 27.9 % (42.0-54.0); HEMOGLOBIN 8.7 g/dL (13.5-17.5); IMMATURE GRANULOCYTES 0.1 % (0-5); LYMPHOCYTES 8.4 % (15-50); MCH 25.1 pg (26.0-34.0); MCHC 31.2 g/dL (31.0-37.0); MCV 80.4 fL (80.0-100.0); MONOCYTES 15.5 % (2-11); NEUTROPHILS 75.7 % (40-80); PLATELET COUNT 214 10x3/uL (130-400); RBC 3.47 10x6/uL (4.20-6.10); RDW 18.5 % (11.5-14.5); WBC 8.8 10x3/uL (4.8-10.8)
[2018-10-01 06:09] LABS: ANION GAP 12.4 mmol/L (8-16); CALCIUM 8.3 mg/dL (8.5-10.1); CARBON DIOXIDE 25.1 mmol/L (21.0-32.0); CREATININE - SERUM 1.8 mg/dL (0.6-1.3); MAGNESIUM - SERUM 1.8 mg/dL (1.8-2.4); POTASSIUM - SERUM 4.5 mmol/L (3.5-5.1)
[2018-10-01 06:16] LABS: PHOSPHOROUS 3.4 mg/dL (2.5-4.9)
--- NOTE | 2018-10-01 08:42 | NUR ---
AM MEDS GIVEN AT THIS TIME. PT REFUSED TO GET LOVENOX INJECTION, PT WALKS IN THE HALLWAY WITH NO TROUBLE. PT A/O X4, O2 RUNNING IN THE 80S ON RA. PLACED ON 2L NC. RT FA FA IV INFUSING DOBUTAMIN AT 10.9. PT DENIES ANY NEEDS AT THIS TIME. CALL LIGHT IN REACH, BEDSIDE RAILS X2, NAD NOTED, WILL CONTINUE PLAN OF CARE.
[2018-10-01 09:46] VITALS: BP 112/56
--- NOTE | 2018-10-01 13:19 | NUR ---
CALLED RESPIRATORY AND SPOKE WITH MARYANN, INFORMED HER THAT PT IS REQUESTING A BREATHING TREATMENT.
--- NOTE | 2018-10-01 13:42 | NUR ---
PER DR. MONICO TRAN TO DECREASE LOVENOX TO EMPIRIC LEVEL OR EVEN D/C.
[2018-10-01 16:35] VITALS: BP 134/77
--- NOTE | 2018-10-01 16:56 | NUR ---
INFORMED MARSHA LEONG OF HIGH BP OF 135/96. NO NEW ORDERS AT THIS TIME.
--- NOTE | 2018-10-01 19:30 | NUR ---
RECIEVED UP IN BED WITH EYES OPEN AND TV ON. ALERT AND ORINTED X4. UP AD SKY. IV TO RIGHT FA WITH DOBUTAMINE INFUSING AT 10.9CC/HR. DSG INTACT WITH NO REDNESS OR SWELLING TO SITE. TELEMETRY IN PLACE. HAS A NON PRODUCTIVE COUGH AND REQUEST UPDRAFT. RT CALLED AND IN ROOM AT THIS TIME WITH TX. DENIES ANY OTHER NEEDS.
[2018-10-01 20:00] VITALS: BP 118/77
[2018-10-02] VITALS: BP 130/86
[2018-10-02 04:00] VITALS: BP 140/80
[2018-10-02 05:58] LABS: BASOPHILS 0.1 % (0-2); HEMATOCRIT 27.7 % (42.0-54.0); HEMOGLOBIN 8.7 g/dL (13.5-17.5); IMMATURE GRANULOCYTES 0.2 % (0-5); LYMPHOCYTES 9.5 % (15-50); MCH 25.4 pg (26.0-34.0); MCHC 31.4 g/dL (31.0-37.0); MCV 80.8 fL (80.0-100.0); MEAN PLATELET VOLUME 8.9 fL (7.4-10.4); NEUTROPHILS 71.2 % (40-80); PLATELET COUNT 192 10x3/uL (130-400); RBC 3.43 10x6/uL (4.20-6.10); RDW 18.5 % (11.5-14.5); WBC 8.7 10x3/uL (4.8-10.8)
[2018-10-02 06:18] LABS: ANION GAP 10.5 mmol/L (8-16); CALCIUM 8.2 mg/dL (8.5-10.1); CARBON DIOXIDE 26.7 mmol/L (21.0-32.0); CREATININE - SERUM 1.6 mg/dL (0.6-1.3); MAGNESIUM - SERUM 1.7 mg/dL (1.8-2.4); POTASSIUM - SERUM 4.2 mmol/L (3.5-5.1)
[2018-10-02 06:22] LABS: PHOSPHOROUS 2.4 mg/dL (2.5-4.9)
--- NOTE | 2018-10-02 07:40 | NUR ---
ALERT AND ORIENTED. TELEMERTY SHOWS SR. RIGHT FA IV WITH DOBUTAMINE AT 10.9. UP AB SKY. SCROTUM SWOLLEN. UP TOBEDSIDE CHAIR. PT PLACED ON ISOLATION FOR VRE IN URINE
[2018-10-02 09:40] VITALS: BP 126/87
--- NOTE | 2018-10-02 15:45 | NUR ---
I have reviewed this patient and I concur with the Shift Assessment completed by the Licensed Practical Nurse today this shift.
[2018-10-02 17:00] VITALS: BP 122/73
--- NOTE | 2018-10-02 19:21 | NUR ---
RECIEVED UP IN BED WITH EYES OPEN AND TV ON. ALERT AND ORIENTED X4. NOT WEARING O2@ THIS TIME. IV TO RIGHT AC WITH DOBUTAMINE INFUSING AT 10.9. TELEMETRY IN PLACE. REMAINS IN ISOLATION R/T VRE IN URINE. DENIES ANY NEEDS AT THIS TIME.
[2018-10-02 20:00] VITALS: BP 121/71
[2018-10-03] VITALS: BP 167/74
[2018-10-03 04:00] VITALS: BP 128/74
[2018-10-03 05:53] LABS: BASOPHILS 0.2 % (0-2); EOSINOPHILS 2.3 % (0-7); HEMATOCRIT 26.2 % (42.0-54.0); HEMOGLOBIN 8.5 g/dL (13.5-17.5); IMMATURE GRANULOCYTES 1.4 % (0-5); LYMPHOCYTES 12.1 % (15-50); MCH 29.9 pg (26.0-34.0); MCHC 32.4 g/dL (31.0-37.0); MONOCYTES 8.4 % (2-11); NEUTROPHILS 75.6 % (40-80); PLATELET COUNT 166 10x3/uL (130-400); RBC 2.84 10x6/uL (4.20-6.10); RDW 14.9 % (11.5-14.5); WBC 6.6 10x3/uL (4.8-10.8)
[2018-10-03 06:12] LABS: ALBUMIN 2.7 g/dL (3.4-5.0); ANION GAP 11.6 mmol/L (8-16); BILIRUBIN - TOTAL 0.75 mg/dL (0.2-1.3); CALCIUM 8.3 mg/dL (8.5-10.1); CARBON DIOXIDE 29.7 mmol/L (21.0-32.0); CREATININE - SERUM 1.5 mg/dL (0.6-1.3); POTASSIUM - SERUM 4.3 mmol/L (3.5-5.1); PROTEIN - SERUM 7.1 g/dL (6.4-8.2)
--- NOTE | 2018-10-03 07:36 | NUR ---
BED SIDE SHIFT REPORT COMPLETE. PT SITTING UP ON SIDE OF BED WITH BREATHING TREATMENT. NO SIGNS OF DISTRESS NOTED. CONTACT PRECAUTIONS IN PLACE. RR EVEN AND UNLABORED ON 2L NC PRN. ALERT AND ORIENTED. UP AD SKY. DENIES NEEDS AT THIS TIME. WILL CONTINUE TO MONITOR.
[2018-10-03 09:12] VITALS: BP 144/84
--- NOTE | 2018-10-03 09:55 | NUR ---
I have reviewed this patient and I concur with the Shift Assessment completed by the Licensed Practical Nurse today this shift.
[2018-10-03 15:42] VITALS: BP 119/69
--- NOTE | 2018-10-03 18:38 | CN ---
PATIENT NAME:VIVIEN CHASE SR MEDICAL RECORD: [id number] : 57 LOCATION:D. D.2127 ADMIT DATE: 09/27/18 ACCOUNT: [id number] CONSULTING PHYSICIAN: SALBADOR SHEA MD REFERRING PHYSICIAN: VAHE KRAUSE MD DATE OF CONSULTATION: 09/27/2018 CARDIOLOGY CONSULTATION ADMITTING DIAGNOSES: 1. Congestive heart failure, chronic systolic dysfunction. 2. Ischemic cardiomyopathy. 3. Coronary artery disease. 4. Previous multivessel percutaneous transluminal coronary angioplasty stent. 5. Peripheral vascular disease. 6. Pancreatitis. 7. Chronic obstructive pulmonary disease. 8. Smoking history. 9. Paroxysmal atrial fibrillation. 10. Hypertension. HISTORY OF PRESENT ILLNESS: Mr. Chase is well known to us with a past history of coronary artery disease, multivessel PTCA stent, now presents with shortness of breath, dyspnea on exertion. He does have an increased troponin, the last cardiac catheterization was in May. He has ischemic cardiomyopathy, ejection fraction 10% to 15%, but he had no significant restenosis of the previously placed stents. His EKG is with no changes. BNP is markedly elevated. PHYSICAL EXAMINATION: GENERAL APPEARANCE: Well-nourished, well-developed, appears stated age. Level of distress, comfortable. PSYCHIATRIC: Mental status, alert, normal affect. Orientation, oriented to time, place and person. EYES: Lids and conjunctiva, noninjected. No discharge, no pallor. ENT: Lips, teeth, gums, normal dentition. Oropharynx, no cyanosis, no pallor. NECK: Carotid arteries, bilateral normal upstroke, no bruits, no thrills. JUGULAR VEINS: No jugular venous pressure or distention. CERVICAL LYMPH NODES: Nontender, nonenlarged. THYROID: Not enlarged. Nontender. No nodules. LUNGS: Respiratory effort, unlabored. CHEST: Normal curvature. No thoracic deformity. No chest wall tenderness. Percussion, resonant. Auscultation, clear. No wheezes, no rales, no rhonchi. CARDIOVASCULAR: Precordial exam, nondisplaced. No heaves or pericardial thrills. Rate and rhythm, regular. Heart sounds, normal S1, normal S2. No S3, no gallop, no rub. Systolic murmur, not heard. Diastolic murmur, not heard. EXTREMITIES: No cyanosis, no edema. Peripheral pulses, full and equal in all extremities, except as noted. No bruits appreciated. ABDOMEN: Soft, nondistended. Normal aorta. No bruit. Nontender. No masses. Liver, nontender, no hepatomegaly. Spleen, nontender, no splenomegaly. MUSCULOSKELETAL: No joint tenderness. No joint swelling. No erythema. NEUROLOGICAL: Normal gait, normal strength, normal tone. SKIN: Warm and dry. OVERALL IMPRESSION: Elevated troponin, demand ischemia. At this time, he has congestive heart failure. We will start him on dobutamine. Would discontinue CONSULT REPORT [id number] VIVIEN CHASE SR his IV fluids, place him on Lasix as well to clear the heart failure symptomatology and the pulmonary edema. Continue the Plavix, continue the aspirin, continue his amiodarone and Coreg. Further care depends upon the results with the dobutamine and diuresis. TRANSINT:[id number] Voice Confirmation ID: [id number] DOCUMENT ID: [id number] SALBADOR SHEA MD at 1838 CC: [id number] DICTATION DATE: 09/27/18808 ENGINEERING INTERN: 09/27/18 0826 ADM IN [facility] [address] [place] [id number]
--- NOTE | 2018-10-03 20:12 | NUR ---
RECIEVED UP IN BED WITH HOB ELEVATED. EYES OPEN AND TV ON. IV TO RIGHT FA WITH DOBUTREX INFUSING AT 10.9 CC/HR. ALERT AND ORIENTED X4. UP AD SKY. DENIES ANY NEEDS AT THGIS TIME.
[2018-10-04] VITALS: BP 130/70
[2018-10-04 04:00] VITALS: BP 118/57
[2018-10-04 05:18] LABS: BASOPHILS 0.2 % (0-2); EOSINOPHILS 4.9 % (0-7); HEMATOCRIT 25.5 % (42.0-54.0); HEMOGLOBIN 8.1 g/dL (13.5-17.5); IMMATURE GRANULOCYTES 0.3 % (0-5); LYMPHOCYTES 5.5 % (15-50); MCH 25.3 pg (26.0-34.0); MCHC 31.8 g/dL (31.0-37.0); MCV 79.7 fL (80.0-100.0); MEAN PLATELET VOLUME 8.7 fL (7.4-10.4); MONOCYTES 14.8 % (2-11); NEUTROPHILS 74.3 % (40-80); PLATELET COUNT 177 10x3/uL (130-400); RDW 18.5 % (11.5-14.5)
[2018-10-04 05:29] LABS: WBC 9.8 10x3/uL (4.8-10.8)
[2018-10-04 05:47] LABS: ALBUMIN 2.7 g/dL (3.4-5.0); ANION GAP 10.6 mmol/L (8-16); BILIRUBIN - TOTAL 0.76 mg/dL (0.2-1.3); CALCIUM 8.6 mg/dL (8.5-10.1); CARBON DIOXIDE 31.3 mmol/L (21.0-32.0); CREATININE - SERUM 1.5 mg/dL (0.6-1.3); POTASSIUM - SERUM 3.9 mmol/L (3.5-5.1); PROTEIN - SERUM 7.1 g/dL (6.4-8.2)
--- NOTE | 2018-10-04 07:19 | NUR ---
RESTING, NO DISTRESS NOTED. RESP EVEN AND UNLABORED. CL IN REACH.
[2018-10-04 08:45] VITALS: BP 126/75
[2018-10-04 11:29] VITALS: BP 122/82
--- NOTE | 2018-10-04 13:01 | NUR ---
FAMILY AT BS. ISOLATION MRSA URINE. NO DISTRESS NOTED. CL IN REACH.
[2018-10-04 15:05] VITALS: BP 119/68
--- NOTE | 2018-10-04 17:03 | NUR ---
NO CHANGE IN ASSESSMENT. VISITOR IN ROOM. NO C/O PAIN AT THIS TIME. CL IN REACH.
--- NOTE | 2018-10-04 19:30 | NUR ---
EVENING ROUNDS MADE. PT SITTING UP ON SIDE OF BED. STATES PAIN IN HEAD. TYLENOL GIVEN. CONTACT ISOLATION PRECAUTIONS TAKEN. 2L 02 VIA NC, BREATHING EVEN AND UNLABORED. NO FURTHER CONCERNS AT THIS TIME. BED LOWERED AND LOCKED. CL IN REACH. WILL CTM.
--- NOTE | 2018-10-04 22:12 | NUR ---
VITALS STABLE. PT TOOK MEDS WITHOUT DIFFICULTY. DENIES FURTHER NEED AT THIS TIME. BED LOWERED AND LOCKED. CL IN [facility]. WILL CTM.
[2018-10-04 22:14] VITALS: BP 116/70
--- NOTE | 2018-10-05 00:52 | NUR ---
IV TO R FA INFILTRATED, IV REMOVED, TIP INTACT. NEW IV SITED TO R UPPER ARM 20G, PATENT, DSRG C/D/I. NO FURTHER CONCERNS AT THIS TIME. BED LOWERED AND LOCKED. CL IN REACH. WILL CTM.
[2018-10-05 01:01] VITALS: BP 107/67
[2018-10-05 05:16] VITALS: BP 123/62
--- NOTE | 2018-10-05 06:00 | NUR ---
PT WT 185.1 LBS. DOBUTAMINE GTT ADJUSTED TO 12.6 CC/HR. PT RESTING COMFORTABLY. WILL CTM.
[2018-10-05 06:57] LABS: BASOPHILS 0.2 % (0-2); EOSINOPHILS 5.8 % (0-7); HEMATOCRIT 25.7 % (42.0-54.0); IMMATURE GRANULOCYTES 0.3 % (0-5); LYMPHOCYTES 9.4 % (15-50); MCH 25.3 pg (26.0-34.0); MCHC 31.1 g/dL (31.0-37.0); MCV 81.3 fL (80.0-100.0); MEAN PLATELET VOLUME 8.9 fL (7.4-10.4); MONOCYTES 12.1 % (2-11); NEUTROPHILS 72.2 % (40-80); PLATELET COUNT 193 10x3/uL (130-400); RBC 3.16 10x6/uL (4.20-6.10); RDW 18.9 % (11.5-14.5); WBC 10.5 10x3/uL (4.8-10.8)
[2018-10-05 07:23] LABS: ALBUMIN 2.7 g/dL (3.4-5.0); ANION GAP 8.5 mmol/L (8-16); BILIRUBIN - TOTAL 0.79 mg/dL (0.2-1.3); CALCIUM 8.6 mg/dL (8.5-10.1); CARBON DIOXIDE 32.6 mmol/L (21.0-32.0); CREATININE - SERUM 1.4 mg/dL (0.6-1.3); POTASSIUM - SERUM 4.1 mmol/L (3.5-5.1); PROTEIN - SERUM 7.2 g/dL (6.4-8.2)
[2018-10-05 07:40] LABS: APTT 32.6 SECONDS (22.8-39.4); INR 1.18 (0.85-1.17); PROTIME 14.5 SECONDS (11.6-15.0)
--- NOTE | 2018-10-05 08:15 | NUR ---
PATIENT CONCERNED WITH THE TIMING OF HIS PROCEDURE. UPSET THAT HE WILL NOT GET TO EAT BREAKFAST
[2018-10-05 08:41] VITALS: BP 129/64
--- NOTE | 2018-10-05 14:57 | NUR ---
Nutrition follow-up: Pt NPO for thoracentesis today PO intake of low sodium diet ~75% average of meals Labs reviewed WT: 185# NO BM charted since admit RDN following.
[2018-10-05 15:46] VITALS: BP 131/60
[2018-10-05 15:52] LABS: PROTEIN - BODY FLUID 3.1 G/DL
[2018-10-05 17:36] LABS: EOS BF 1 %; MACROPHAGES BF 62 %; MESOTHELIALS BF 4 %; NEUT - BF 16 %
--- NOTE | 2018-10-05 19:30 | NUR ---
EVENING ROUNDS MADE. PT LAYING IN BED RESTING. PT REQUESTED A BREATHING TREATMENT. RESPIRATORY INFORMED. DENIES PAIN AT THIS TIME. BREATHING EVEN ADN UNLAORED. O2 VIA NC AT 2L. NO FURTHER CONCERNS AT THIS TIME. CONTACT ISOLATION PRECAUTIONS TAKEN. WILL CTM.
[2018-10-05 20:00] VITALS: BP 124/70
--- NOTE | 2018-10-05 21:57 | NUR ---
VITALS STABLE. PT TOOK MEDS WITHOUT DIFFICULTY. NO FURTHER CONCERNS AT THIS TIME. BED LOWERED AND LOCKED. CL IN REACH. WILL CTM.
[2018-10-06] VITALS: BP 108/63
[2018-10-06 04:00] VITALS: BP 133/65
[2018-10-06 06:09] LABS: BASOPHILS 0.2 % (0-2); EOSINOPHILS 3.4 % (0-7); HEMATOCRIT 25.6 % (42.0-54.0); HEMOGLOBIN 8.2 g/dL (13.5-17.5); IMMATURE GRANULOCYTES 0.2 % (0-5); LYMPHOCYTES 3.7 % (15-50); MCH 25.7 pg (26.0-34.0); MCV 80.3 fL (80.0-100.0); NEUTROPHILS 84.5 % (40-80); PLATELET COUNT 222 10x3/uL (130-400); RBC 3.19 10x6/uL (4.20-6.10); RDW 18.9 % (11.5-14.5)
[2018-10-06 06:15] LABS: WBC 16.7 10x3/uL (4.8-10.8)
[2018-10-06 06:29] LABS: ALBUMIN 2.5 g/dL (3.4-5.0); ANION GAP 9.1 mmol/L (8-16); BILIRUBIN - TOTAL 0.99 mg/dL (0.2-1.3); CALCIUM 8.5 mg/dL (8.5-10.1); CARBON DIOXIDE 33.9 mmol/L (21.0-32.0); CREATININE - SERUM 1.5 mg/dL (0.6-1.3); PROTEIN - SERUM 6.7 g/dL (6.4-8.2)
[2018-10-06 08:49] VITALS: BP 116/71
[2018-10-06 12:25] VITALS: BP 123/82
[2018-10-06 16:08] LABS: AFB SPECIMEN PROCESSING Concentration (())
--- NOTE | 2018-10-06 17:12 | MORECARE ---
CASE MANAGEMENT DISCHARGE SUMMARY PATIENT: VIVIEN REYES SR UNIT: [id number] ADM DATE: 09/27/18 AGE: 63 : 57 SEX: M ROOM/BED: D.7852 AUTHOR: NOHEMI,DOC PHYSICIAN: REFERRING PHYSICIAN: VAHE KRAUSE MD DATE OF SERVICE: 10/06/18 Discharge Plan Patient Name: VIVIEN REYES Facility: [facility]:[place] : 1955 Planned Disposition: Home Anticipated Discharge Date: Discharge Date: Expected LOS: Initial Reviewer: [id number] Initial Review Date: 09/29/2018 Generated: 10/06/18 6:12 pm Comments DCP- Discharge Planning Updated by [id number]: Robel Brown on 10/06/18 4:[address] Patient Name: VIVIEN REYES Encounter No: [id number] : 1955 Primary Insurance: [facility] MEDICARE SOLUTIONS Anticipated DC Date: Planned Disposition: Home DCP follow-up note: CM MET WITH PT IN ROOM TO DISCUSS DISCHARGE NEEDS AND PLANNING. CM DISCUSSED AVAILABILITY OF HOME HEALTH, REHAB SERVICES AND MEDICAL EQUIPMENT. PT DENIES DISCHARGE NEEDS. FRIEND TO TRANSPORT HOME AT DISCHARGE. IMPORTANT MESSAGE FROM MEDICARE PROVIDED AND EXPLAINED. CM TO FOLLOW AND ASSIST NEEDED. HORACIO Garcia DCP- Discharge Planning Updated by [id number]: Robel Brown on 09/29/18 3:[address] Patient Name: VIVIEN REYES Admission Status: ER Accout number: [id number] Admission Date: 09-27-2018 : 1955 Admission Diagnosis: Attending: VAHE GAYTAN Current LOS: 2 Anticipated DC Date: Planned Disposition: Home Primary Insurance: [facility] MEDICARE SOLUTIONS Discharge Planning Comments: CM MET WITH PT IN ROOM TO DISCUSS DISCHARGE PLANNING AND NEEDS. PT REPORTS LIVING AT HOME INDEPENDENTLY WITH A ROOMMATE. PT HAS CANE, OXYGEN AT NIGHT AND NEBULIZER FROM [facility] [place]. PT HAS NO OUTSIDE SERVICES ASSISTING IN THE HOME. CM DISCUSSED AVAILABILITY OF HOME HEALTH, REHAB SERVICES AND MEDICAL EQUIPMENT. PT DENIES DISCHARGE NEEDS, REPORTS HIS ROOMMATE WILL PICK HIM UP FOR DISCHARGE HOME. IMPORTANT MESSAGE FROM MEDICARE PROVIDED AND EXPLAINED. PT PLANS TO DISCHARGE HOME WITH ROOMMATE. PT HAS NO ANTICIPATED DISCHARGE NEEDS AT THIS TIME. ROOMMATE TO PRINTING PRESS OPERATOR FOR DISCHARGE HOME. CM TO FOLLOW AND ASSIST NEEDED. International Trade Compliance Manager: Robel Brown DCPIA - Discharge Planning Initial Assessment Updated by [id number]: Robel Brown on 09/29/18 4:07 pm * Is the patient Alert and Oriented? Yes * How many steps to enter\exit or inside your home? * PCP DR. HALL * Pharmacy [facility] * Preadmission Environment Home with Family * ADLs Independent * Equipment Cane Nebulizer Oxygen * Other Equipment [facility] - MEDICAL EQUIPMENT PROVIDER * List name and contact numbers for known caregivers / representatives who currently or will assist patient after discharge: ALESIA FLORIAN, FRIEND, JEFF REYES, BROTHER, * Verbal permission to speak to the caregivers and representatives has been obtained from the patient. N/A * Community resources currently utilized None * Please name any agencies selected above. NONE * Additional services required to return to the preadmission environment? No * Can the patient safely return to the preadmission environment? Yes * Has this patient been hospitalized within the prior 30 days at any hospital? No Coverage Notice Reviewer: [id number] Hudson Brown Notice Issued Date-Time: 09/29/2018 9:55 Notice Type: IM Discharge Notice Notice Delivered To: Patient Relationship to Patient: Farm Consultant Name: Delivery Method: HAND - Hand Delivered Shae Days: Prior Verbal Notification: Recipient Understood Notice: Yes Recipient Signature: Yes Med Rec Note Co-signed by Attending: Coverage Notice Comment: Reviewer: [id number] Hudson Brown Notice Issued Date-Time: 10/06/2018 10:00 Notice Type: IM Discharge Notice Notice Delivered To: Patient Relationship to Patient: Farm Consultant Name: Delivery Method: HAND - Hand Delivered Shae Days: Prior Verbal Notification: Recipient Understood Notice: Yes Recipient Signature: Yes Med Rec Note Co-signed by Attending: Coverage Notice Comment: Last DP export: 09/29/18 3:16 p Patient Name: VIVIEN REYES Page [id number] at 1712 All edits/amendments must be made on the electronic document DICTATION DATE: 10/06/181711 DIRECT CARE STAFFER: LEIGH 10/06/181711 RPT#: [id number] DC DATE: STATUS: ADM IN [facility] [address] [place] [address] END OF REPORT
--- NOTE | 2018-10-06 19:30 | NUR ---
EVENING ROUNDS MADE. PT DENIES PAIN AT THIS TIME. A/O X4 UP AB SKY. DENIES FURTHER CONCERNS AT THIS TIME. CONTACT ISOLATION PRECAUTIONS TAKEN. BREATHING EVEN AND UNLABORED. NO FURTHER CONCERNS AT THIS TIME. BED LOWERED AND LOCKED. CL IN REACH. WILL CTM.
[2018-10-06 20:00] VITALS: BP 120/69
--- NOTE | 2018-10-06 20:55 | NUR ---
PT SITTING UP IN CHAIR AT BEDSIDE. VITALS STABLE. TOOK MEDS WITHOUT DIFFICULTY. REQUESTED A BREATHING TREATMENT. RESPIRATORY NOTIFIED. NO FURTHER CONCERNS AT THIS TIME. BED LOWERED AND LOCKED. CL IN REACH. WILL CTM.
[2018-10-07] VITALS: BP 128/59
[2018-10-07 04:00] VITALS: BP 107/76
[2018-10-07 05:29] LABS: BASOPHILS 0.2 % (0-2); HEMOGLOBIN 8.2 g/dL (13.5-17.5); IMMATURE GRANULOCYTES 0.3 % (0-5); LYMPHOCYTES 8.6 % (15-50); MCH 25.2 pg (26.0-34.0); MCHC 31.5 g/dL (31.0-37.0); MCV 79.8 fL (80.0-100.0); MEAN PLATELET VOLUME 9.5 fL (7.4-10.4); MONOCYTES 13.3 % (2-11); NEUTROPHILS 72.6 % (40-80); PLATELET COUNT 218 10x3/uL (130-400); RBC 3.26 10x6/uL (4.20-6.10); RDW 19.1 % (11.5-14.5)
[2018-10-07 05:35] LABS: WBC 12.5 10x3/uL (4.8-10.8)
--- NOTE | 2018-10-07 05:44 | NUR ---
I have reviewed this patient and I concur with the Shift Assessment completed by the Licensed Practical Nurse today this shift.
[2018-10-07 05:47] LABS: ALBUMIN 2.5 g/dL (3.4-5.0); ANION GAP 9.4 mmol/L (8-16); BILIRUBIN - TOTAL 0.9 mg/dL (0.2-1.3); CALCIUM 8.6 mg/dL (8.5-10.1); CARBON DIOXIDE 31.4 mmol/L (21.0-32.0); CREATININE - SERUM 1.5 mg/dL (0.6-1.3); POTASSIUM - SERUM 3.8 mmol/L (3.5-5.1); PROTEIN - SERUM 6.8 g/dL (6.4-8.2)
--- NOTE | 2018-10-07 08:09 | NUR ---
REPORT RECIEVED. PT A&O LYING SEMI FOWLERS. NO DISTRESS NOTED. RR EVEN AND UNLABORED. CL IN REACH. BED RAILS UP X2. WILL CTM
[2018-10-07 08:30] VITALS: BP 114/69
[2018-10-07 12:44] VITALS: BP 96/60
--- NOTE | 2018-10-07 13:54 | NUR ---
I have reviewed this patient and I concur with the Shift Assessment completed by the Licensed Practical Nurse today this shift.
--- NOTE | 2018-10-07 15:05 | NUR ---
Nutrition Follow Up: Chart reviewed Diet: AHA PO Intake: 94% meal avg BM: 10/01/18 Wt stable Labs reviewed Meds noted including Lasix Rec continue current diet. RD following.
[2018-10-07 16:30] VITALS: BP 128/73
--- NOTE | 2018-10-07 17:01 | MORECARE ---
CASE MANAGEMENT DISCHARGE SUMMARY PATIENT: VIVIEN REYES UNIT: [id number] ADM DATE: 09/27/18 AGE: 63 : 57 SEX: M ROOM/BED: D.3746 AUTHOR: NOHEMI,DOC PHYSICIAN: REFERRING PHYSICIAN: VAHE KRAUSE MD DATE OF SERVICE: 10/07/18 Discharge Plan Patient Name: VIVIEN REYES Facility: [facility]:[place] : 1955 Planned Disposition: Home Anticipated Discharge Date: Discharge Date: Expected LOS: Initial Reviewer: [id number] Initial Review Date: 09/29/2018 Generated: 10/07/18 6:00 pm Comments DCP- Discharge Planning Updated by [id number]: Yvette Chen on 10/07/18 4:[address] ORDER RECEIVED AT 1630 FOR HOME OXYGEN IF NEEDE AND NEBULIZER FOR UPDRAFTS AT DISCHARGE. PATIENT HAS A NEBULIZER AND HOME OXYGEN FOR NIGHT O2 WITH [facility]. TC TO RESPIRATORY FOR A WALK TEST. WILL NEED TO QUALIFY FOR PORTABILITY. DCP- Discharge Planning Updated by [id number]: Robel Brown on 10/06/18 4:[address] Patient Name: VIVIEN REYES Encounter No: [id number] : 1955 Primary Insurance: [facility] MEDICARE SOLUTIONS Anticipated DC Date: Planned Disposition: Home DCP follow-up note: CM MET WITH PT IN ROOM TO DISCUSS DISCHARGE NEEDS AND PLANNING. CM DISCUSSED AVAILABILITY OF HOME HEALTH, REHAB SERVICES AND MEDICAL EQUIPMENT. PT DENIES DISCHARGE NEEDS. FRIEND TO TRANSPORT HOME AT DISCHARGE. IMPORTANT MESSAGE FROM MEDICARE PROVIDED AND EXPLAINED. CM TO FOLLOW AND ASSIST NEEDED. Robel Brown CASE MANAGEMENT DCP- Discharge Planning Updated by [id number]: Robel Brown on 09/29/18 3:[address] Patient Name: VIVIEN REYES Admission Status: ER Accout number: [id number] Admission Date: 09-27-2018 : 1955 Admission Diagnosis: Attending: VAHE GAYTAN Current LOS: 2 Anticipated DC Date: Planned Disposition: Home Primary Insurance: [facility] MEDICARE SOLUTIONS Discharge Planning Comments: CM MET WITH PT IN ROOM TO DISCUSS DISCHARGE PLANNING AND NEEDS. PT REPORTS LIVING AT HOME INDEPENDENTLY WITH A ROOMMATE. PT HAS CANE, OXYGEN AT NIGHT AND NEBULIZER FROM [facility]. PT HAS NO OUTSIDE SERVICES ASSISTING IN THE HOME. CM DISCUSSED AVAILABILITY OF HOME HEALTH, REHAB SERVICES AND MEDICAL EQUIPMENT. PT DENIES DISCHARGE NEEDS, REPORTS HIS ROOMMATE WILL PICK HIM UP FOR DISCHARGE HOME. IMPORTANT MESSAGE FROM MEDICARE PROVIDED AND EXPLAINED. PT PLANS TO DISCHARGE HOME WITH ROOMMATE. PT HAS NO ANTICIPATED DISCHARGE NEEDS AT THIS TIME. ROOMMATE TO MANAGER PACU FOR DISCHARGE HOME. CM TO FOLLOW AND ASSIST NEEDED. Detail Maker And Fitter: Robel Brown DCPIA - Discharge Planning Initial Assessment Updated by [email or web address]: Robel Brown on 09/29/18 4:07 pm * Is the patient Alert and Oriented? Yes * How many steps to enter\exit or inside your home? * PCP DR. HALL * Pharmacy [facility] * Preadmission Environment Home with Family * ADLs Independent * Equipment Cane Nebulizer Oxygen * Other Equipment [facility] - MEDICAL EQUIPMENT PROVIDER * List name and contact numbers for known caregivers / representatives who currently or will assist patient after discharge: ALESIA FLORIAN, FRIEND, JEFF REYES, BROTHER, * Verbal permission to speak to the caregivers and representatives has been obtained from the patient. N/A * Community resources currently utilized None * Please name any agencies selected above. NONE * Additional services required to return to the preadmission environment? No * Can the patient safely return to the preadmission environment? Yes * Has this patient been hospitalized within the prior 30 days at any hospital? No Coverage Notice Reviewer: [id number] Hudson Brown Notice Issued Date-Time: 09/29/2018 9:55 Notice Type: IM Discharge Notice Notice Delivered To: Patient Relationship to Patient: Kerfer Machine Operator Name: Delivery Method: HAND - Hand Delivered Shae Days: Prior Verbal Notification: Recipient Understood Notice: Yes Recipient Signature: Yes Med Rec Note Co-signed by Attending: Coverage Notice Comment: Reviewer: [id number] Hudson Brown Notice Issued Date-Time: 10/06/2018 10:00 Notice Type: IM Discharge Notice Notice Delivered To: Patient Relationship to Patient: Kerfer Machine Operator Name: Delivery Method: HAND - Hand Delivered Shae Days: Prior Verbal Notification: Recipient Understood Notice: Yes Recipient Signature: Yes Med Rec Note Co-signed by Attending: Coverage Notice Comment: Last DP export: 10/06/18 4:12 p Patient Name: VIVIEN REYES Page [id number] at 1701 All edits/amendments must be made on the electronic document DICTATION DATE: 10/07/181699 BINDER SORTER: LEIGH 10/07/181699 RPT#: [id number] DC DATE: STATUS: ADM IN [facility] [address] [place] [address] END OF REPORT
--- NOTE | 2018-10-07 17:02 | NUR ---
PATIENT AMBULATED ON ROOM AIR AND 02 SAT AT 88%. PLACED ON 2L/NC AND PATIENT AMBULATED AT 95%
--- NOTE | 2018-10-07 17:15 | MORECARE ---
CASE MANAGEMENT DISCHARGE SUMMARY PATIENT: VIVIEN REYES UNIT: [id number] ADM DATE: 09/27/18 AGE: 63 : 57 SEX: M ROOM/BED: D.9562 AUTHOR: NOHEMIDOC PHYSICIAN: REFERRING PHYSICIAN: VAHE KRAUSE MD DATE OF SERVICE: 10/07/18 Discharge Plan Patient Name: VIVIEN REYES Facility: [facility]:[place] : 1955 Planned Disposition: Home Anticipated Discharge Date: Discharge Date: Expected LOS: Initial Reviewer: [id number] Initial Review Date: 09/29/2018 Generated: 10/07/18 6:14 pm Comments DCP- Discharge Planning Updated by [id number]: Yvette Chen on 10/07/18 4:[address] HOME/ PORTABLE O2 TESTING 10/07/18 RESTING ROOM AIR SAT 93% O2 SAT DURING EXERTION 88% O2 SAT 95% AFTER APPLYING 2/L NASAL O2 DURING AMBULATION. DCP- Discharge Planning Updated by [id number]: Yvette Chen on 10/07/18 4:[address] ORDER RECEIVED AT 1630 FOR HOME OXYGEN IF NEEDE AND NEBULIZER FOR UPDRAFTS AT DISCHARGE. PATIENT HAS A NEBULIZER AND HOME OXYGEN FOR NIGHT O2 WITH [facility]. TC TO RESPIRATORY FOR A WALK TEST. WILL NEED TO QUALIFY FOR PORTABILITY. DCP- Discharge Planning Updated by [id number]: Robel Brown on 10/06/18 4:[address] Patient Name: VIVIEN REYES Encounter No: [id number] : 1955 Primary Insurance: [facility] MEDICARE SOLUTIONS Anticipated DC Date: Planned Disposition: Home DCP follow-up note: CM MET WITH PT IN ROOM TO DISCUSS DISCHARGE NEEDS AND PLANNING. CM DISCUSSED AVAILABILITY OF HOME HEALTH, REHAB SERVICES AND MEDICAL EQUIPMENT. PT DENIES DISCHARGE NEEDS. FRIEND TO TRANSPORT HOME AT DISCHARGE. IMPORTANT MESSAGE FROM MEDICARE PROVIDED AND EXPLAINED. CM TO FOLLOW AND ASSIST NEEDED. Robel Brown CASE MANAGEMENT DCP- Discharge Planning Updated by [id number]: Robel Brown on 09/29/18 3:[address] Patient Name: VIVIEN REYES Admission Status: ER Accout number: [id number] Admission Date: 09-27-2018 : 1955 Admission Diagnosis: Attending: VAHE GAYTAN Current LOS: 2 Anticipated DC Date: Planned Disposition: Home Primary Insurance: [facility] MEDICARE SOLUTIONS Discharge Planning Comments: CM MET WITH PT IN ROOM TO DISCUSS DISCHARGE PLANNING AND NEEDS. PT REPORTS LIVING AT HOME INDEPENDENTLY WITH A ROOMMATE. PT HAS CANE, OXYGEN AT NIGHT AND NEBULIZER FROM [facility]. PT HAS NO OUTSIDE SERVICES ASSISTING IN THE HOME. CM DISCUSSED AVAILABILITY OF HOME HEALTH, REHAB SERVICES AND MEDICAL EQUIPMENT. PT DENIES DISCHARGE NEEDS, REPORTS HIS ROOMMATE WILL PICK HIM UP FOR DISCHARGE HOME. IMPORTANT MESSAGE FROM MEDICARE PROVIDED AND EXPLAINED. PT PLANS TO DISCHARGE HOME WITH ROOMMATE. PT HAS NO ANTICIPATED DISCHARGE NEEDS AT THIS TIME. ROOMMATE TO APRON MAN FOR DISCHARGE HOME. CM TO FOLLOW AND ASSIST NEEDED. Micro Computer Specialist: Robel Brown DCPIA - Discharge Planning Initial Assessment Updated by [email or web address]: Robel Brown on 09/29/18 4:07 pm * Is the patient Alert and Oriented? Yes * How many steps to enter\exit or inside your home? * PCP DR. HALL * Pharmacy [facility] * Preadmission Environment Home with Family * ADLs Independent * Equipment Cane Nebulizer Oxygen * Other Equipment [facility] - MEDICAL EQUIPMENT PROVIDER * List name and contact numbers for known caregivers / representatives who currently or will assist patient after discharge: ALESIA FLORIAN, FRIEND, JEFF REYES, BROTHER, * Verbal permission to speak to the caregivers and representatives has been obtained from the patient. N/A * Community resources currently utilized None * Please name any agencies selected above. NONE * Additional services required to return to the preadmission environment? No * Can the patient safely return to the preadmission environment? Yes * Has this patient been hospitalized within the prior 30 days at any hospital? No Coverage Notice Reviewer: [id number] Hudson Brown Notice Issued Date-Time: 09/29/2018 9:55 Notice Type: IM Discharge Notice Notice Delivered To: Patient Relationship to Patient: Interpreter And Translator Name: Delivery Method: HAND - Hand Delivered Shae Days: Prior Verbal Notification: Recipient Understood Notice: Yes Recipient Signature: Yes Med Rec Note Co-signed by Attending: Coverage Notice Comment: Reviewer: [id number] Hudson Brown Notice Issued Date-Time: 10/06/2018 10:00 Notice Type: IM Discharge Notice Notice Delivered To: Patient Relationship to Patient: Interpreter And Translator Name: Delivery Method: HAND - Hand Delivered Shae Days: Prior Verbal Notification: Recipient Understood Notice: Yes Recipient Signature: Yes Med Rec Note Co-signed by Attending: Coverage Notice Comment: Last DP export: 10/07/18 4:01 p Patient Name: VIVIEN REYES Page [id number] at 1715 All edits/amendments must be made on the electronic document DICTATION DATE: 10/07/181713 MACHINE GREASER: LEIGH 10/07/181713 RPT#: [id number] DC DATE: STATUS: ADM IN [facility] [address] [place] [address] END OF REPORT
--- NOTE | 2018-10-07 19:30 | NUR ---
RECEIVED REPORT, WILL ASSUME CARE OF PT, PT IS UP IN ROOM, DENIES ANY NEEDS AT THIS TIME, CALL LIGHT IN REACH, WILL CONTINUE PLAN OF CARE
[2018-10-07 20:00] VITALS: BP 122/74
[2018-10-08] VITALS: BP 116/65
[2018-10-08 04:00] VITALS: BP 123/73
--- NOTE | 2018-10-08 04:06 | NUR ---
I have reviewed this patient and I concur with the Shift Assessment completed by the Licensed Practical Nurse today this shift.
--- NOTE | 2018-10-08 07:00 | NUR ---
RECEIVED REPORT. ASSUMED CARE OF PATIENT. PATIENT SITTING TO SIDE OF BED. RESP EVEN AND UNLABORED. REMAINS IN ISOLOATION FOR VRE IN URINE. PATIENT ASKING IF HE IS GOING HOME TODAY. THIS TURRET LATHE SET UP OPERATOR CURRENTLY HAS NO ORDERS. EXPLAINED THIS TURRET LATHE SET UP OPERATOR WILL CHECK WITH [facility] AND MD FOR PLANS. NO DISTRESS. CALL LIGHT WITHIN REACH.
[2018-10-08 08:31] VITALS: BP 116/62
--- NOTE | 2018-10-08 12:06 | NUR ---
TOBACCO QUITLINE FORM COMPLETED AND FAXED.
[2018-10-08] MEDS ORDERED: OMNICEF300 MG PO (12:31)
--- NOTE | 2018-10-08 13:02 | MORECARE ---
CASE MANAGEMENT DISCHARGE SUMMARY PATIENT: VIVIEN REYES UNIT: [id number] ADM DATE: 09/27/18 AGE: 63 : 57 SEX: M ROOM/BED: D.2221 AUTHOR: NOHEMI,DOC PHYSICIAN: REFERRING PHYSICIAN: VAHE KRAUSE MD DATE OF SERVICE: 10/08/18 Discharge Plan Patient Name: VIVIEN REYES Facility: [facility]:[place] : 1955 Planned Disposition: Home Anticipated Discharge Date: 10/08/18 Discharge Date: Expected LOS: 11 Initial Reviewer: [email or web address] Initial Review Date: 09/29/2018 Generated: 10/08/18 2:02 pm Comments DCP- Discharge Planning Updated by [email or web address]: Yvette Chen on 10/07/18 4:[address] HOME/ PORTABLE O2 TESTING 10/07/18 RESTING ROOM AIR SAT 93% O2 SAT DURING EXERTION 88% O2 SAT 95% AFTER APPLYING 2/L NASAL O2 DURING AMBULATION. DCP- Discharge Planning Updated by [id number]: Yvette Chen on 10/07/18 4:[address] ORDER RECEIVED AT 1630 FOR HOME OXYGEN IF NEEDE AND NEBULIZER FOR UPDRAFTS AT DISCHARGE. PATIENT HAS A NEBULIZER AND HOME OXYGEN FOR NIGHT O2 WITH [facility]. TC TO RESPIRATORY FOR A WALK TEST. WILL NEED TO QUALIFY FOR PORTABILITY. DCP- Discharge Planning Updated by [id number]: Robel Brown on 10/06/18 4:[address] Patient Name: VIVIEN REYES Encounter No: [id number] : 1955 Primary Insurance: [facility] MEDICARE SOLUTIONS Anticipated DC Date: Planned Disposition: Home DCP follow-up note: CM MET WITH PT IN ROOM TO DISCUSS DISCHARGE NEEDS AND PLANNING. CM DISCUSSED AVAILABILITY OF HOME HEALTH, REHAB SERVICES AND MEDICAL EQUIPMENT. PT DENIES DISCHARGE NEEDS. FRIEND TO TRANSPORT HOME AT DISCHARGE. IMPORTANT MESSAGE FROM MEDICARE PROVIDED AND EXPLAINED. CM TO FOLLOW AND ASSIST NEEDED. Robel Brown, CASE MANAGEMENT DCP- Discharge Planning Updated by [id number]: Robel Brown on 09/29/18 3:[address] Patient Name: VIVIEN REYES Admission Status: ER Accout number: [id number] Admission Date: 09-27-2018 : 1955 Admission Diagnosis: Attending: VAHE GAYTAN Current LOS: 2 Anticipated DC Date: Planned Disposition: Home Primary Insurance: [facility] MEDICARE SOLUTIONS Discharge Planning Comments: CM MET WITH PT IN ROOM TO DISCUSS DISCHARGE PLANNING AND NEEDS. PT REPORTS LIVING AT HOME INDEPENDENTLY WITH A ROOMMATE. PT HAS CANE, OXYGEN AT NIGHT AND NEBULIZER FROM [facility]. PT HAS NO OUTSIDE SERVICES ASSISTING IN THE HOME. CM DISCUSSED AVAILABILITY OF HOME HEALTH, REHAB SERVICES AND MEDICAL EQUIPMENT. PT DENIES DISCHARGE NEEDS, REPORTS HIS ROOMMATE WILL PICK HIM UP FOR DISCHARGE HOME. IMPORTANT MESSAGE FROM MEDICARE PROVIDED AND EXPLAINED. PT PLANS TO DISCHARGE HOME WITH ROOMMATE. PT HAS NO ANTICIPATED DISCHARGE NEEDS AT THIS TIME. ROOMMATE TO MANAGER CLINICAL RESEARCH FOR DISCHARGE HOME. CM TO FOLLOW AND ASSIST NEEDED. Turner Splitter Machine Operator: Robel Brown DCPIA - Discharge Planning Initial Assessment Updated by [id number]: Robel Brown on 09/29/18 4:07 pm * Is the patient Alert and Oriented? Yes * How many steps to enter\exit or inside your home? * PCP DR. HALL * Pharmacy [facility] * Preadmission Environment Home with Family * ADLs Independent * Equipment Cane Nebulizer Oxygen * Other Equipment [facility] - MEDICAL EQUIPMENT PROVIDER * List name and contact numbers for known caregivers / representatives who currently or will assist patient after discharge: ALESIA FLORIAN, FRIEND, JEFF REYES, BROTHER, * Verbal permission to speak to the caregivers and representatives has been obtained from the patient. N/A * Community resources currently utilized None * Please name any agencies selected above. NONE * Additional services required to return to the preadmission environment? No * Can the patient safely return to the preadmission environment? Yes * Has this patient been hospitalized within the prior 30 days at any hospital? No Coverage Notice Reviewer: [id number] Hudson Brown Notice Issued Date-Time: 09/29/2018 9:55 Notice Type: IM Discharge Notice Notice Delivered To: Patient Relationship to Patient: Lunch Cook Name: Delivery Method: HAND - Hand Delivered Shae Days: Prior Verbal Notification: Recipient Understood Notice: Yes Recipient Signature: Yes Med Rec Note Co-signed by Attending: Coverage Notice Comment: Reviewer: [id number] Brown Notice Issued Date-Time: 10/06/2018 10:00 Notice Type: IM Discharge Notice Notice Delivered To: Patient Relationship to Patient: Lunch Cook Name: Delivery Method: HAND - Hand Delivered Shae Days: Prior Verbal Notification: Recipient Understood Notice: Yes Recipient Signature: Yes Med Rec Note Co-signed by Attending: Coverage Notice Comment: Last DP export: 10/07/18 4:15 p Patient Name: VIVIEN REYES Page [phone] at 1302 All edits/amendments must be made on the electronic document DICTATION DATE: 10/08/18 1302 SERVICE ORDER CLERK: LEIGH 10/08/18 1302 RPT#: [id number] DC DATE: STATUS: ADM IN [facility] [address] [place] [address] END OF REPORT
--- NOTE | 2018-10-08 13:03 | NUR ---
1245 20 GAUGE IV REMOVED FROM RIGHT UPPER ARM. NO BLEEDING FROM SITE. CATHETER TIP INTACT. 2X2 GAUZE APPLIED AND SECURED WITH BANDAID. TOELRATED IV REMOVAL WELL. 1300 PATIENT PROVIDED DISCHARGE INSTRUCTIONS AT THIS TIME. VERBALIZED UNDERSTANDING OF ALL INSTRUTIONS. PATIENT HAS HIS RIDE PRESCHEDULED TO PICK HIM UP. PATIENT REFUSES TO WAIT FOR PORTABLE OXYGEN TO BE DELIVERED TO THE HOSPITAL, IT WILL BE 1 1/2 HOUR UNTIL THEY CAN GET HERE. PATEINT STATES HE LIVES 2 BLOCKS AWAY AND HAS HOME OXYGEN CONCENTRATOR. PATIENT LEFT WITHOUT PORTABLE OXYGEN, CASE MANAGEMENT FELICIA AT PATIENTS ROOM AND AWARE. TELEMETRY RETURNED TO PALLET ASSEMBLER.
--- NOTE | 2018-10-08 13:09 | NUR ---
PATIENT LEFT UNIT IN NO DISTRESS WITHOUT PORTABLE OXYGEN. PATIENT LEFT UNIT WITH ALL PERSONAL BELONGINGS. PATIENT LEFT UNIT VIA WHEELCHAIR.
--- NOTE | 2018-10-08 13:15 | MORECARE ---
CASE MANAGEMENT DISCHARGE SUMMARY PATIENT: VIVIEN REYES SR UNIT: [id number] ADM DATE: 09/27/18 AGE: 63 : 57 SEX: M ROOM/BED: D.4679 AUTHOR: NOHEMI,DOC PHYSICIAN: REFERRING PHYSICIAN: VAHE KRAUSE MD DATE OF SERVICE: 10/08/18 Discharge Plan Patient Name: VIVIEN REYES Facility: [facility]:[place] : 1955 Planned Disposition: Home Anticipated Discharge Date: 10/08/18 Discharge Date: Expected LOS: 11 Initial Reviewer: [id number] Initial Review Date: 09/29/2018 Generated: 10/08/18 2:15 pm Comments DCP- Discharge Planning Updated by [id number]: Yvette Chen on 10/08/18 12:[address] 1230 CM RECEIVED TELEPHONE CALL FROM THE REHEATER HELPER THAT THE PATIENT IS FOR DISCHARGE TO HOME TODAY. JUNIE SPOKE WITH HIM. HE STATES DARLENE HAD BEEN AT HIS HOME THE DAY PRIOR TO HIS ADMIT TO CHECK HIS EQUIPMENT. HE CONFIRMS HE HAS BOTH A NEBULIZER AND STATIONARY OXYGEN UNIT. CM EXPLAINED THE DOCTOR HAD ORDERED PORTABILITY FOR HIM SECONDARY TO HIS WALK TEST FINDINGS. EXPLAIN CM WOULD CALL FOR A PORTABLE UNIT. 1242 TC TO [facility]. SPOKE W/ SAUTE CHEF DELIVER PERSON. DISCUSSED DELIVERY OF PORTABLE UNIT. HE STATED HE WAS IN [place] AT PRESENT. [place] W[place] WITHIN THE [place]OUR. TC BACK TO THE PATIENT TO ADVISE PORTABLE UNIT WOULD BE DELIVERED WITHIN THE HOUR. PATIENT STATES HE HAS MADE HIS ARRANGEMENTS FOR TRANSPORTATION FOR 1 PM. HE DOES NOT WANT TO WAIT. CM EXPLAINED IT IS HOT/ HUMID AND HIS OXYGEN LEVELS DROP BELOW NORMAL WITH LITTLE ACTIVITY. HE STATES HE LIVES 3 BLOCKS AWAY AND WILL NOT WAIT. JUNIE ADVISED THE [employer] II TURN DOWN WORKER ON HER RETURN FROM LUNCH. SHE WILL F/U WITH THE PATIENT AND DARLENE. SHE WILL FAX WALK TEST RESULTS AND MD ORDER. DCP- Discharge Planning Updated by [id number]: Yvette Chen on 10/07/18 4:[address] HOME/ PORTABLE O2 TESTING 10/07/18 RESTING ROOM AIR SAT 93% O2 SAT DURING EXERTION 88% O2 SAT 95% AFTER APPLYING 2/L NASAL O2 DURING AMBULATION. DCP- Discharge Planning Updated by [email or web address]: Yvette Chen on 10/07/18 4:[address] ORDER RECEIVED AT 1630 FOR HOME OXYGEN IF NEEDE AND NEBULIZER FOR UPDRAFTS AT DISCHARGE. PATIENT HAS A NEBULIZER AND HOME OXYGEN FOR NIGHT O2 WITH [facility]. TC TO RESPIRATORY FOR A WALK TEST. WILL NEED TO QUALIFY FOR PORTABILITY. DCP- Discharge Planning Updated by [id number]: Robel Brown on 10/06/18 4:[address] Patient Name: VIVIEN REYES Encounter No: [id number] : 1955 Primary Insurance: [facility] MEDICARE SOLUTIONS Anticipated DC Date: Planned Disposition: Home DCP follow-up note: CM MET WITH PT IN ROOM TO DISCUSS DISCHARGE NEEDS AND PLANNING. CM DISCUSSED AVAILABILITY OF HOME HEALTH, REHAB SERVICES AND MEDICAL EQUIPMENT. PT DENIES DISCHARGE NEEDS. FRIEND TO TRANSPORT HOME AT DISCHARGE. IMPORTANT MESSAGE FROM MEDICARE PROVIDED AND EXPLAINED. CM TO FOLLOW AND ASSIST NEEDED. Robel Brown, CASE MANAGEMENT DCP- Discharge Planning Updated by [email or web address]: Robel Brown on 09/29/18 3:[address] Patient Name: VIVIEN REYES Admission Status: ER Accout number: [id number] Admission Date: 09-27-2018 : 1955 Admission Diagnosis: Attending: VAHE GAYTAN Current LOS: 2 Anticipated DC Date: Planned Disposition: Home Primary Insurance: [facility] MEDICARE SOLUTIONS Discharge Planning Comments: CM MET WITH PT IN ROOM TO DISCUSS DISCHARGE PLANNING AND NEEDS. PT REPORTS LIVING AT HOME INDEPENDENTLY WITH A ROOMMATE. PT HAS CANE, OXYGEN AT NIGHT AND NEBULIZER FROM [facility]. PT HAS NO OUTSIDE SERVICES ASSISTING IN THE HOME. CM DISCUSSED AVAILABILITY OF HOME HEALTH, REHAB SERVICES AND MEDICAL EQUIPMENT. PT DENIES DISCHARGE NEEDS, REPORTS HIS ROOMMATE WILL PICK HIM UP FOR DISCHARGE HOME. IMPORTANT MESSAGE FROM MEDICARE PROVIDED AND EXPLAINED. PT PLANS TO DISCHARGE HOME WITH ROOMMATE. PT HAS NO ANTICIPATED DISCHARGE NEEDS AT THIS TIME. ROOMMATE TO CHEMISTRY TEACHER FOR DISCHARGE HOME. CM TO FOLLOW AND ASSIST NEEDED. Ammunition Assembly Ii Laborer: Robel Brown DCPIA - Discharge Planning Initial Assessment Updated by [id number]: Robel Brown on 09/29/18 4:07 pm * Is the patient Alert and Oriented? Yes * How many steps to enter\exit or inside your home? * PCP DR. HALL * Pharmacy [facility] * Preadmission Environment Home with Family * ADLs Independent * Equipment Cane Nebulizer Oxygen * Other Equipment [facility] - MEDICAL [facility]QUIPMENT PROVIDER * List name and contact numbers for known caregivers / representatives who currently or will assist patient after discharge: ALESIA FLORIAN, FRIEND, JEFF REYES, BROTHER, * Verbal permission to speak to the caregivers and representatives has been obtained from the patient. N/A * Community resources currently utilized None * Please name any agencies selected above. NONE * Additional services required to return to the preadmission environment? No * Can the patient safely return to the preadmission environment? Yes * Has this patient been hospitalized within the prior 30 days at any hospital? No Coverage Notice Reviewer: IVÁN Brown Notice Issued Date-Time: 09/29/2018 9:55 Notice Type: IM Discharge Notice Notice Delivered To: Patient Relationship to Patient: Palaeontologist Name: Delivery Method: HAND - Hand Delivered Shae Days: Prior Verbal Notification: Recipient Understood Notice: Yes Recipient Signature: Yes Med Rec Note Co-signed by Attending: Coverage Notice Comment: Reviewer: IVÁN Brown Notice Issued Date-Time: 10/06/2018 10:00 Notice Type: IM Discharge Notice Notice Delivered To: Patient Relationship to Patient: Palaeontologist Name: Delivery Method: HAND - Hand Delivered Shae Days: Prior Verbal Notification: Recipient Understood Notice: Yes Recipient Signature: Yes Med Rec Note Co-signed by Attending: Coverage Notice Comment: Last DP export: 10/08/18 12:02 p Patient Name: VIVIEN REYES Page [phone] at 1315 All edits/amendments must be made on the electronic document DICTATION DATE: 10/08/18 1315 POLISHING WHEEL SETTER: LEIGH 10/08/18 1315 RPT#: [id number] DC DATE: STATUS: ADM IN [facility] [address] [place] [address] END OF REPORT
--- NOTE | 2018-10-08 18:07 | NUR ---
IN PATIENT CHART BECAUSE WELL SERVICES OPERATOR FOR PORTABLE OXYGEN JUST NOW SHOWED UP AT THE [facility] TO DELIVER THE TANKS TO THE PATIENT! CALLED PATIENT AND PATIENT GAVE PERMISSION FOR THIS COLLECTIONS ATTORNEY TO GIVE PHONE NUMBER AND ADDRESS TO OXYGEN LEAD SYSTEMS ANALYST.
--- NOTE | 2018-10-10 09:27 | MORECARE ---
CASE MANAGEMENT DISCHARGE SUMMARY PATIENT: VIVIEN REYES SR UNIT: [id number] ADM DATE: 09/27/18 AGE: 63 : 57 SEX: M ROOM/BED: D.9854 AUTHOR: NOHEMI,DOC PHYSICIAN: REFERRING PHYSICIAN: VAHE KRAUSE MD DATE OF SERVICE: 10/10/18 Discharge Plan Patient Name: VIVIEN REYES Facility: [facility]:[place] : 1955 Planned Disposition: Home Anticipated Discharge Date: 10/08/18 Discharge Date: 10/08/2018 Expected LOS: 11 Initial Reviewer: [id number] Initial Review Date: 09/29/2018 Generated: 10/10/18 10:27 am Comments DCP- Discharge Planning Updated by [id number]: Yvette Chen on 10/08/18 12:[address] 1230 CM RECEIVED TELEPHONE CALL FROM THE LIFE COACH THAT THE PATIENT IS FOR DISCHARGE TO HOME TODAY. JUNIE SPOKE WITH HIM. HE STATES DARLENE HAD BEEN AT HIS HOME THE DAY PRIOR TO HIS ADMIT TO CHECK HIS EQUIPMENT. HE CONFIRMS HE HAS BOTH A NEBULIZER AND STATIONARY OXYGEN UNIT. CM EXPLAINED THE DOCTOR HAD ORDERED PORTABILITY FOR HIM SECONDARY TO HIS WALK TEST FINDINGS. EXPLAIN CM WOULD CALL FOR A PORTABLE UNIT. 1242 TC TO [facility]. SPOKE W/ SUPERVISOR FINISHING ROOM DELIVER PERSON. DISCUSSED DELIVERY OF PORTABLE UNIT. HE STATED HE WAS IN [place] AT PRESENT. [place] W[place] WITH[place] THE H[place]. TC BACK TO THE PATIENT TO ADVISE PORTABLE UNIT WOULD BE DELIVERED WITHIN THE HOUR. PATIENT STATES HE HAS MADE HIS ARRANGEMENTS FOR TRANSPORTATION FOR 1 PM. HE DOES NOT WANT TO WAIT. CM EXPLAINED IT IS HOT/ HUMID AND HIS OXYGEN LEVELS DROP BELOW NORMAL WITH LITTLE ACTIVITY. HE STATES HE LIVES 3 BLOCKS AWAY AND WILL NOT WAIT. JUNIE ADVISED THE MED II COPYMAN ON HER RETURN FROM LUNCH. SHE WILL F/U WITH THE PATIENT AND [facility]. SHE WILL FAX WALK TEST RESULTS AND MD ORDER. DCP- Discharge Planning Updated by [id number]: Yvette Chen on 10/07/18 4:[address] HOME/ PORTABLE O2 TESTING 10/07/18 RESTING ROOM AIR SAT 93% O2 SAT DURING EXERTION 88% O2 SAT 95% AFTER APPLYING 2/L NASAL O2 DURING AMBULATION. DCP- Discharge Planning Updated by [email or web address]: Yvette Chen on 10/07/18 4:[address] ORDER RECEIVED AT 1630 FOR HOME OXYGEN IF NEEDE AND NEBULIZER FOR UPDRAFTS AT DISCHARGE. PATIENT HAS A NEBULIZER AND HOME OXYGEN FOR NIGHT O2 WITH [facility]. TC TO RESPIRATORY FOR A WALK TEST. WILL NEED TO QUALIFY FOR PORTABILITY. DCP- Discharge Planning Updated by [id number]: Robel Brown on 10/06/18 4:[address] Patient Name: VIVIEN REYES Encounter No: [id number] : 1955 Primary Insurance: [facility] MEDICARE SOLUTIONS Anticipated DC Date: Planned Disposition: Home DCP follow-up note: CM MET WITH PT IN ROOM TO DISCUSS DISCHARGE NEEDS AND PLANNING. CM DISCUSSED AVAILABILITY OF HOME HEALTH, REHAB SERVICES AND MEDICAL EQUIPMENT. PT DENIES DISCHARGE NEEDS. FRIEND TO TRANSPORT HOME AT DISCHARGE. IMPORTANT MESSAGE FROM MEDICARE PROVIDED AND EXPLAINED. CM TO FOLLOW AND ASSIST NEEDED. Robel Brown, CASE MANAGEMENT DCP- Discharge Planning Updated by [email or web address]: Rboel Brown on 09/29/18 3:[address] Patient Name: VIVIEN REYES Admission Status: ER Accout number: [id number] Admission Date: 09-27-2018 : 1955 Admission Diagnosis: Attending: VAHE GAYTAN Current LOS: 2 Anticipated DC Date: Planned Disposition: Home Primary Insurance: [facility] MEDICARE SOLUTIONS Discharge Planning Comments: CM MET WITH PT IN ROOM TO DISCUSS DISCHARGE PLANNING AND NEEDS. PT REPORTS LIVING AT HOME INDEPENDENTLY WITH A ROOMMATE. PT HAS CANE, OXYGEN AT NIGHT AND NEBULIZER FROM [facility]. PT HAS NO OUTSIDE SERVICES ASSISTING IN THE HOME. CM DISCUSSED AVAILABILITY OF HOME HEALTH, REHAB SERVICES AND MEDICAL EQUIPMENT. PT DENIES DISCHARGE NEEDS, REPORTS HIS ROOMMATE WILL PICK HIM UP FOR DISCHARGE HOME. IMPORTANT MESSAGE FROM MEDICARE PROVIDED AND EXPLAINED. PT PLANS TO DISCHARGE HOME WITH ROOMMATE. PT HAS NO ANTICIPATED DISCHARGE NEEDS AT THIS TIME. ROOMMATE TO BUSINESS SYSTEMS ADMINISTRATOR FOR DISCHARGE HOME. CM TO FOLLOW AND ASSIST NEEDED. Chain Maker Machine: Robel Brown DCPIA - Discharge Planning Initial Assessment Updated by [id number]: Robel Brown on 09/29/18 4:07 pm * Is the patient Alert and Oriented? Yes * How many steps to enter\exit or inside your home? * PCP DR. HALL * Pharmacy [facility] [facility] * Preadmission Environment Home with Family * ADLs Independent * Equipment Cane Nebulizer Oxygen * Other Equipment [facility] - MEDICAL EQUIPMENT PROVIDER * List name and contact numbers for known caregivers / representatives who currently or will assist patient after discharge: ALESIA FLORIAN, SAAD, JEFF REYES, BROTHER, * Verbal permission to speak to the caregivers and representatives has been obtained from the patient. N/A * Community resources currently utilized None * Please name any agencies selected above. NONE * Additional services required to return to the preadmission environment? No * Can the patient safely return to the preadmission environment? Yes * Has this patient been hospitalized within the prior 30 days at any hospital? No Coverage Notice Reviewer: [id number] Brown Notice Issued Date-Time: 09/29/2018 9:55 Notice Type: IM Discharge Notice Notice Delivered To: Patient Relationship to Patient: Distribution Operations Supervisor Name: Delivery Method: HAND - Hand Delivered Shae Days: Prior Verbal Notification: Recipient Understood Notice: Yes Recipient Signature: Yes Med Rec Note Co-signed by Attending: Coverage Notice Comment: Reviewer: IVÁN Brown Notice Issued Date-Time: 10/06/2018 10:00 Notice Type: IM Discharge Notice Notice Delivered To: Patient Relationship to Patient: Distribution Operations Supervisor Name: Delivery Method: HAND - Hand Delivered Shae Days: Prior Verbal Notification: Recipient Understood Notice: Yes Recipient Signature: Yes Med Rec Note Co-signed by Attending: Coverage Notice Comment: Last DP export: 10/08/18 12:15 p Patient Name: VIVIEN REYES Page [phone] at 0927 All edits/amendments must be made on the electronic document DICTATION DATE: 10/10/18926 AQUACULTURE PROGRAM DIRECTOR: LEIGH 10/10/18926 RPT#: [id number] DC DATE:10/08/18 STATUS: DIS IN [facility] [address] [place] [address] END OF REPORT
--- NOTE | 2018-10-10 14:57 | MORECARE ---
CASE MANAGEMENT DISCHARGE SUMMARY PATIENT: VIVIEN REYES SR UNIT: [id number] ADM DATE: 09/27/18 AGE: 63 : 57 SEX: M ROOM/BED: D.0587 AUTHOR: NOHEMI,DOC PHYSICIAN: REFERRING PHYSICIAN: VAHE KRAUES MD DATE OF SERVICE: 10/10/18 Discharge Plan Patient Name: VIVIEN REYES Facility: [facility]:[place] : 1955 Planned Disposition: Home Anticipated Discharge Date: 10/08/18 Discharge Date: 10/08/2018 Expected LOS: 11 Initial Reviewer: [email or web address] Initial Review Date: 09/29/2018 Generated: 10/10/18 3:56 pm Comments DCP- Discharge Planning Updated by [email or web address]: Yvette Chen on 10/08/18 12:[address] 1230 CM RECEIVED TELEPHONE CALL FROM THE TELLER HEAD THAT THE PATIENT IS FOR DISCHARGE TO HOME TODAY. JUNIE SPOKE WITH HIM. HE STATES DARLENE HAD BEEN AT HIS HOME THE DAY PRIOR TO HIS ADMIT TO CHECK HIS EQUIPMENT. HE CONFIRMS HE HAS BOTH A NEBULIZER AND STATIONARY OXYGEN UNIT. CM EXPLAINED THE DOCTOR HAD ORDERED PORTABILITY FOR HIM SECONDARY TO HIS WALK TEST FINDINGS. EXPLAIN CM WOULD CALL FOR A PORTABLE UNIT. 1242 TC TO [facility]. SPOKE W/ ELECTROPHYSIOLOGY NURSE PRACTITIONER DELIVER PERSON. DISCUSSED DELIVERY OF PORTABLE UNIT. HE STATED HE WAS IN [place] AT PRESENT. HE WOULD BE IN [place] WITHIN THE HOUR. TC BACK TO THE PATIENT TO ADVISE PORTABLE UNIT WOULD BE DELIVERED WITHIN THE HOUR. PATIENT STATES HE HAS MADE HIS ARRANGEMENTS FOR TRANSPORTATION FOR 1 PM. HE DOES NOT WANT TO WAIT. CM EXPLAINED IT IS HOT/ HUMID AND HIS OXYGEN LEVELS DROP BELOW NORMAL WITH LITTLE ACTIVITY. HE STATES HE LIVES 3 BLOCK[address] AND WILL NOT WAIT. JUNIE ADVISED THE MED II SPACE SCHEDULER ON HER RETURN FROM LUNCH. SHE WILL F/U WITH THE PATIENT AND [facility]. SHE WILL FAX WALK TEST RESULTS AND MD ORDER. DCP- Discharge Planning Updated by [email or web address]: Yvette Chen on 10/07/18 4:[address] HOME/ PORTABLE O2 TESTING 10/07/18 RESTING ROOM AIR SAT 93% O2 SAT DURING EXERTION 88% O2 SAT 95% AFTER APPLYING 2/L NASAL O2 DURING AMBULATION. DCP- Discharge Planning Updated by [email or web address]: Yvette Chen on 10/07/18 4:[address] ORDER RECEIVED AT 1630 FOR HOME OXYGEN IF NEEDE AND NEBULIZER FOR UPDRAFTS AT DISCHARGE. PATIENT HAS A NEBULIZER AND HOME OXYGEN FOR NIGHT O2 WITH [facility]. TC TO [facility] FOR A WALK TEST. WILL NEED TO QUALIFY FOR PORTABILITY. DCP- Discharge Planning Updated by [email or web address]: Robel Brown on 10/06/18 4:[address] Patient Name: VIVIEN REYES Encounter No: [id number] : 1955 Primary Insurance: [facility] [employer] SOL[employer] Anticipated DC Date: Planned Disposition: Home DCP follow-up note: CM MET WITH PT IN ROOM TO DISCUSS DISCHARGE NEEDS AND PLANNING. CM DISCUSSED AVAILABILITY OF HOME HEALTH, REHAB SERVICES AND MEDICAL EQUIPMENT. PT DENIES DISCHARGE NEEDS. FRIEND TO TRANSPORT HOME AT DISCHARGE. IMPORTANT MESSAGE FROM MEDICARE PROVIDED AND EXPLAINED. CM TO FOLLOW AND ASSIST NEEDED. Robel Brown, CASE MANAGEMENT DCP- Discharge Planning Updated by [id number]: Robel Brown on 09/29/18 3:[address] Patient Name: VIVIEN REYES Admission Status: ER Accout number: [id number] Admission Date: 09-27-2018 : 1955 Admission Diagnosis: Attending: VAHE GAYTAN Current LOS: 2 Anticipated DC Date: Planned Disposition: Home Primary Insurance: [facility] [employer] SOLUTIONS Discharge Planning Comments: CM MET WITH PT IN ROOM TO DISCUSS DISCHARGE PLANNING AND NEEDS. PT REPORTS LIVING AT HOME INDEPENDENTLY WITH A ROOMMATE. PT HAS CANE, OXYGEN AT NIGHT AND NEBULIZER FROM [facility]. PT HAS NO OUTSIDE SERVICES ASSISTING IN THE HOME. CM DISCUSSED AVAILABILITY OF HOME HEALTH, REHAB SERVICES AND MEDICAL EQUIPMENT. PT DENIES DISCHARGE NEEDS, REPORTS HIS ROOMMATE WILL PICK HIM UP FOR DISCHARGE HOME. IMPORTANT MESSAGE FROM MEDICARE PROVIDED AND EXPLAINED. PT PLANS TO DISCHARGE HOME WITH ROOMMATE. PT HAS NO ANTICIPATED DISCHARGE NEEDS AT THIS TIME. ROOMMATE TO CLAIM REP FOR DISCHARGE HOME. CM TO FOLLOW AND ASSIST NEEDED. Printed Circuit Layout Taper: Robel Brown DCPIA - Discharge Planning Initial Assessment Updated by [email or web address]: Robel Brown on 09/29/18 4:07 pm * Is the patient Alert and Oriented? Yes * How many steps to enter\exit or inside your home? * PCP DR. HALL * Pharmacy [facility] ([place] * Preadmission Environment Home with Family * ADLs Independent * Equipment Cane Nebulizer Oxygen * Other Equipment [facility] - MEDICAL EQUIPMENT PROVIDER * List name and contact numbers for known caregivers / representatives who currently or will assist patient after discharge: ALESIA FLORIAN, SAAD, JEFF REYES, BROTHER, * Verbal permission to speak to the caregivers and representatives has been obtained from the patient. N/A * Community resources currently utilized None * Please name any agencies selected above. NONE * Additional services required to return to the preadmission environment? No * Can the patient safely return to the preadmission environment? Yes * Has this patient been hospitalized within the prior 30 days at any hospital? No External Providers External Provider: Rashawn Calzada Contact Date: 10/08/2018 Service Request Date: Service Type: Resolution: Reviewer: Comments: Coverage Notice Reviewer: [email or web address] Brown Notice Issued Date-Time: 09/29/2018 9:55 Notice Type: IM Discharge Notice Notice Delivered To: Patient Relationship to Patient: Tire Recapper Name: Delivery Method: HAND - Hand Delivered Shae Days: Prior Verbal Notification: Recipient Understood Notice: Yes Recipient Signature: Yes Med Rec Note Co-signed by Attending: Coverage Notice Comment: Reviewer: IVÁN Brown Notice Issued Date-Time: 10/06/2018 10:00 Notice Type: IM Discharge Notice Notice Delivered To: Patient Relationship to Patient: Tire Recapper Name: Delivery Method: HAND - Hand Delivered Shae Days: Prior Verbal Notification: Recipient Understood Notice: Yes Recipient Signature: Yes Med Rec Note Co-signed by Attending: Coverage Notice Comment: Last DP export: 10/10/18 8:27 a Patient Name: VIVIEN REYES Page [phone] at 1457 All edits/amendments must be made on the electronic document DICTATION DATE: 10/10/181455 GANG PUSHER: LEIGH 10/10/181455 RPT#: [id number] DC DATE:10/08/18 STATUS: DIS IN [facility] [address] [place] [address] END OF REPORT
[2018-10-17 16:08] LABS: FUNGUS STAIN Final report (())
[2018-11-02 07:26] LABS: FUNGUS MYCOLOGY CULTURE Final report (())
[2018-11-26 13:09] LABS: ACID FAST CULTURE Negative (()); ACID FAST SMEAR Negative (())
== END 2018-10-08 13:15 | disposition home or self-care (01) | DRG 291 ==
LOC: D.ER 23:08 → D.MS 09-27 02:09 → D.M2 09-27 02:09
PROVIDERS: Family Medicine; Internal Medicine Pulmonary Disease; Radiology Vascular & Interventional Radiology; ADMIT Family Medicine Adult Medicine; ATTEND Family Medicine Adult Medicine
PROC: 0W993ZZ Drainage of Right Pleural Cavity, Percutaneous Approach (ICD-10-PCS; principal; 2018-10-05 11:30)
DX: I13.0 Hypertensive heart and chronic kidney disease with heart failure and stage 1 through stage 4 chronic kidney disease, or unspecified chronic kidney disease (principal); K85.90 Acute pancreatitis without necrosis or infection, unspecified; I50.23 Acute on chronic systolic (congestive) heart failure; G93.41 Metabolic encephalopathy; J18.1 Lobar pneumonia, unspecified organism; J94.8 Other specified pleural conditions; E87.1 Hypo-osmolality and hyponatremia; N17.9 Acute kidney failure, unspecified; R18.8 Other ascites; D68.9 Coagulation defect, unspecified; I25.10 Atherosclerotic heart disease of native coronary artery without angina pectoris; K21.9 Gastro-esophageal reflux disease without esophagitis; D50.9 Iron deficiency anemia, unspecified; N18.3 Chronic kidney disease, stage 3 (moderate); J43.9 Emphysema, unspecified; F14.10 Cocaine abuse, uncomplicated; F11.10 Opioid abuse, uncomplicated; F10.10 Alcohol abuse, uncomplicated

== ENCOUNTER 2018-11-02 11:27 | Inpatient (IN) | payer MEDICARE, MEDICAID ==
[2018-11-02] VITALS (7 sets, daily range): BP systolic 117–139; BP diastolic 59–77; BMI 28.6
[~2018-11-02] VITALS: Ht 185.4 cm; Wt 98.2 kg
[~2018-11-02 11:27] MED LIST changes: +OMNICEF300 MG PO
[2018-11-02] MEDS ORDERED: SINGULAIR10 MG PO (11:37)
[2018-11-02 12:03] LABS: BASOPHILS 0.2 % (0-2); EOSINOPHILS 2.3 % (0-7); HEMATOCRIT 27.8 % (42.0-54.0); HEMOGLOBIN 8.7 g/dL (13.5-17.5); IMMATURE GRANULOCYTES 0.2 % (0-5); LYMPHOCYTES 8.9 % (15-50); MCH 24.9 pg (26.0-34.0); MCHC 31.3 g/dL (31.0-37.0); MCV 79.7 fL (80.0-100.0); MEAN PLATELET VOLUME 8.4 fL (7.4-10.4); NEUTROPHILS 75.4 % (40-80); PLATELET COUNT 199 10x3/uL (130-400); RBC 3.49 10x6/uL (4.20-6.10); RDW 18.9 % (11.5-14.5); WBC 8.8 10x3/uL (4.8-10.8)
[2018-11-02 12:14] LABS: ALBUMIN 2.6 g/dL (3.4-5.0); ALKALINE PHOSPHATASE 308 U/L (46-116); ALT (SGPT) 13 U/L (10-68); BILIRUBIN - TOTAL 0.97 mg/dL (0.2-1.3); CALC OSMOLALITY 271 mosm/kg (275-300); CALCIUM 8.9 mg/dL (8.5-10.1); CARBON DIOXIDE 30.3 mmol/L (21.0-32.0); CHLORIDE - SERUM 96 mmol/L (98-107); CREATININE - SERUM 1.7 mg/dL (0.6-1.3); GLUCOSE 101 mg/dL (74-106); POTASSIUM - SERUM 3.7 mmol/L (3.5-5.1); PROTEIN - SERUM 7.6 g/dL (6.4-8.2); SODIUM 134 mmol/L (136-145); UREA NITROGEN 23 mg/dL (7-18); eGFR NON AFRICAN AMERICAN 44 mL/min (90-120)
[2018-11-02 12:32] LABS: CKMB 2.8 U/L (0.0-3.6); CREATINE KINASE 121 UL (21-232); PRO BNP 10063 pg/mL (0-125)
[2018-11-02 12:36] LABS: TROPONIN-I 0.126 ng/mL (0.000-0.060)
[2018-11-02 14:37] LABS: INR 1.23 (0.85-1.17)
[2018-11-02 14:42] LABS: APTT 35.5 SECONDS (22.8-39.4)
--- NOTE | 2018-11-02 14:49 | NUR ---
PATIENT TO SPECIALS VIA STRETCHER.
--- NOTE | 2018-11-02 15:26 | NUR ---
PATIENT IN SPECIALS, REPORT CALLED TO ZACH ON M2, PATIENT WILL GO FROM SPECIALS TO M2.
--- NOTE | 2018-11-02 15:32 | NUR ---
RECEIVED PT TO ROOM 2111 VIA BED, PT A/O X4, BREATHING A LITTLE SHALLOW BUT NO SIGNS OF DISTRESS. LT AC IV SL. DRESSING TO RT FLANK AREA COVERED WITH BLOOD. DERRICK FROM IR CHANGED DRESSING AND APPLIED PRESSURE DRESSING USING 4X4 AND TEGADERM. VITAL SIGNS STABLE, PLACED PT ON FREQUENT VITAL SIGNS. WILL ASSESS PT AND START PLAN OF CARE.
--- NOTE | 2018-11-02 19:15 | NUR ---
REPORT RECEIVED FROM DAY SHIFT. PT CARE ASSUMED. INTRODUCED SELF AND WROTE NAME ON BOARD. PT AAOX4, REQUESTING RESPIRATORY TREATMENT. O2 @ 4L VIA NC, HOB 30 DEGREES, O2 SATURATION 86%. PUMA ANDREWS, PAGED. BED IN LOWEST POSITION, SR X2, CALL LIGHT AND CELL PHONE WITHIN REACH. WILL CONTINUE TO MONITOR.
--- NOTE | 2018-11-02 19:36 | NUR ---
REVIEWED ORDERS, CALLED [facility] FOR TREATMENT, PER PT'S REQUEST. WILL CONTINUE TO MONITOR.
--- NOTE | 2018-11-03 00:28 | NUR ---
PT RESTING IN BED, EYES CLOSED, RESPIRATIONS EVEN AND NONLABORED, EASILY AROUSED BY VOICE. CONTINUOUS BEDSIDE PULSE OX APPLIED TO RIGHT INDEX FINGER. PT TOLERATED WELL, DENIES PAIN AND ANY OTHER NEEDS AT THIS TIME. BED IN LOWEST POSITION, SR X2, CALL LIGHT WITHIN REACH. WILL CONTINUE TO MONITOR.
--- NOTE | 2018-11-03 03:43 | NUR ---
PT LYING IN BED, EYES CLOSED, RR EVEN AND NONLABORED, NO S/S OF DISTRESS, EASILY AROUSED BY VOICE. CONTINUOUS PULSOX 93% ON 6L HIGH-FLOW NC. DENIES PAIN OR ANY OTHER NEEDS AT THIS TIME. BED IN LOWEST POSITION, SR X2, CALL LIGHT AND URINAL WITHIN REACH. WILL CONTINUE TO MONITOR.
--- NOTE | 2018-11-03 06:55 | NUR ---
REPORT RECEIVED. ALERT LYING SUPINE IN BED. RESP EVEN WITHOUT LABOR. O2 ON VIA HIGHFLOW N/C AT 6 L/M PER N/C. CONT. O2 SAT ON WITH CURRENT RESULTS OF 96-98%. DRESSING D/I TO RIGHT FLANK. BED IN LOWEST POSITION AND LOCKED. CAREPLAN REVIEW DONE AND SAFETY PRECAUTIONS IN PLACE. CL IN REACH
[2018-11-03 09:23] VITALS: BP 121/77
--- NOTE | 2018-11-03 12:30 | NUR ---
HE CONTINUES TO HAVE NO C/O. RESP EVEN WITHOUT LABOR. SALINE LOCK IN LEFT A/C IS INTACT. CL IN REACH.
[2018-11-03 12:33] VITALS: Ht 185.4 cm; Wt 98.2 kg
[2018-11-03 13:30] VITALS: BP 105/53
[2018-11-03 17:29] VITALS: BP 105/56
--- NOTE | 2018-11-03 17:58 | NUR ---
UNABLE TO COLLECT UA TODAY. HE SPILLED HIS URINAL TWICE.
--- NOTE | 2018-11-03 23:23 | NUR ---
PT REQUESTING RESPIRATORY TREATMENT. RT CALLED.
[2018-11-03 23:49] LABS: APPEARANCE CLEAR (CLEAR); BILIRUBIN 1+ (NEGATIVE); COLOR DK YELLOW (YELLOW); GLUCOSE NEGATIVE (NEGATIVE); KETONE NEGATIVE (NEGATIVE); NITRITE NEGATIVE (NEGATIVE); PROTEIN NEGATIVE (NEGATIVE); SPECIFIC GRAVITY 1.015 (1.005-1.020)
[2018-11-04] VITALS: BP 118/65
[2018-11-04 00:08] LABS: UDS - AMPHET NEGATIVE QUAL (NEGATIVE); UDS - BARB NEGATIVE QUAL (NEGATIVE); UDS - BENZO NEGATIVE QUAL (NEGATIVE); UDS - COCAINE POSITIVE QUAL (NEGATIVE); UDS - OPIATE NEGATIVE QUAL (NEGATIVE); UDS - PCP NEGATIVE QUAL (NEGATIVE); UDS - THC NEGATIVE QUAL (NEGATIVE)
--- NOTE | 2018-11-04 03:17 | NUR ---
PT REQUESTING TREATMENT FROM [facility]. [facility] CALLED.
[2018-11-04 04:00] VITALS: BP 108/54
[2018-11-04 05:28] LABS: BASOPHILS 0.2 % (0-2); EOSINOPHILS 0.5 % (0-7); HEMATOCRIT 26.1 % (42.0-54.0); IMMATURE GRANULOCYTES 0.2 % (0-5); LYMPHOCYTES 9.1 % (15-50); MCH 24.8 pg (26.0-34.0); MCHC 30.7 g/dL (31.0-37.0); MCV 80.8 fL (80.0-100.0); MEAN PLATELET VOLUME 8.8 fL (7.4-10.4); MONOCYTES 10.9 % (2-11); NEUTROPHILS 79.1 % (40-80); PLATELET COUNT 178 10x3/uL (130-400); RBC 3.23 10x6/uL (4.20-6.10); RDW 18.8 % (11.5-14.5); WBC 10.3 10x3/uL (4.8-10.8)
[2018-11-04 06:01] LABS: ANION GAP 11.4 mmol/L (8-16); CALCIUM 8.4 mg/dL (8.5-10.1); CARBON DIOXIDE 30.5 mmol/L (21.0-32.0); CREATININE - SERUM 1.8 mg/dL (0.6-1.3); POTASSIUM - SERUM 3.9 mmol/L (3.5-5.1)
--- NOTE | 2018-11-04 06:55 | NUR ---
REPORT RECEIVED. HE IS UP IN THE BATHROOM AT THIS TIME. O2 ON AT 2 L/M PER N/C SHORT OF BREATH WHEN UP AND MOVING BUT THIS IS NORMAL FOR HIM. DRESSING D/I TO RIGHT FLANK. WHEEZES NOTED IN ALL HOUSER. BED IN LOWEST POSITION AND LOCKED. CAREPLAN REVIEW DONE AND SAFETY PRECAUTIONS IN PLACE.
[2018-11-04 09:58] VITALS: BP 109/59
--- NOTE | 2018-11-04 14:59 | NUR ---
HE REFUSES TO WEAR TELEMETRY ANY MORE IT WAS RETURNED TO PIPE LINE INSPECTOR AT THIS TIME. O2 SAT ON 2L/M IS 98%, HE IS BEING DISCHARGED AND WEARS HOME O2. CONTINUS PULSE OX REMOVED AFTER HE REFUSED TO WEAR IT ANY LONGER. NO C/O VOICED.
--- NOTE | 2018-11-04 15:56 | MORECARE ---
CASE MANAGEMENT DISCHARGE SUMMARY PATIENT: VIVIEN REYES UNIT: [id number] ADM DATE: 11/03/18 AGE: 63 : 57 SEX: M ROOM/BED: D.2112 AUTHOR: NOHEMI,DOC PHYSICIAN: REFERRING PHYSICIAN: KEELY LOZANO MD DATE OF SERVICE: 11/04/18 Discharge Plan Patient Name: VIVIEN REYES Facility: [facility]:[place] : 1955 Planned Disposition: Home Anticipated Discharge Date: 11/04/18 Discharge Date: Expected LOS: 1 Initial Reviewer: [email or web address] Initial Review Date: 11/04/2018 Generated: 11/04/18 4:55 pm Comments DCP- Discharge Planning Updated by [id number]: Robel Brown on 11/04/18 2:[address] Patient Name: VIVIEN REYES Admission Status: ER Accout number: [id number] Admission Date: 11-03-2018 : 1955 Admission Diagnosis:SHORTNESS OF BREATH Attending: KEELY LOZANO Current LOS: 1 Anticipated DC Date: 11-04-2018 Planned Disposition: Home Primary Insurance: [facility] MEDIC[facility] SOLUTIONS Discharge Planning Comments: CM MET WITH PT IN ROOM TO DISCUSS DISCHARGE PLANNING AND NEEDS. PT REPORTS LIVING AT HOME INDEPENDENTLY WITH A NEW ROOMMATE. PT HAS CANE, NEBULIZER AND HOME / PORTABLE OXGYEN FROM [facility]. PT HAS NO OUTSIDE SERVICES ASSISTING IN THE HOME. PT DENIES NEED FOR DRUG REHAB SERVICES OR INFORMATION REGARDING COMMUNITY SUPPORT PROGRAMS FOR ADDICTION. CM DISCUSSED AVAILABILITY OF HOME HEALTH, REHAB SERVICES AND MEDICAL EQUIPMENT. PT DENIES DISCHARGE NEEDS, REPORTS A FRIEND WILL PICK HIM UP FOR DISCHARGE HOME TODAY. Program Director/Air Personality: Robel Brown DCPIA - Discharge Planning Initial Assessment Updated by [email or web address]: Robel Brown on 11/04/18 3:52 pm * Is the patient Alert and Oriented? Yes * How many steps to enter\exit or inside your home? * PCP DR. HALL * Pharmacy [facility] * Preadmission Environment Home with Family * ADLs Independent * Equipment Cane Nebulizer Oxygen * Other Equipment HOME AND PORTABLE OXYGEN, [facility] * List name and contact numbers for known caregivers / representatives who currently or will assist patient after discharge: ALESIA FLORIAN, FRIEND, JOSE ALFREDO REYES, BROTHER, * Verbal permission to speak to the caregivers and representatives has been obtained from the patient. N/A * Community resources currently utilized None * Please name any agencies selected above. NONE * Additional services required to return to the preadmission environment? No * Can the patient safely return to the preadmission environment? Yes * Has this patient been hospitalized within the prior 30 days at any hospital? No Patient Name: VIVIEN REYES Page [phone] at 1556 All edits/amendments must be made on the electronic document DICTATION DATE: 11/04/181554 PIG HANDLER: LEIGH 11/04/181554 RPT#: [id number] DC DATE: STATUS: ADM IN [facility] [address] [place] [address] END OF REPORT
--- NOTE | 2018-11-04 15:56 | NUR ---
DISCHARGE INSTRUCTIONS EXPLAINED IN DETAIL. SALINE LOCK D/C WITH CATH TIP INTACT, MINIMAL BLEEDING. TRANSPORTED BY W/C TO [facility]. HE HAD HIS HOME O2 ON AT THIS TIME. HE IS IN STABLE CONDITION.
--- NOTE | 2018-11-07 17:46 | MORECARE ---
CASE MANAGEMENT DISCHARGE SUMMARY PATIENT: VIVIEN REYES UNIT: [id number] ADM DATE: 11/03/18 AGE: 63 : 57 SEX: M ROOM/BED: D.2112 AUTHOR: NOHEMI,DOC PHYSICIAN: REFERRING PHYSICIAN: KEELY LOZANO MD DATE OF SERVICE: 11/07/18 Discharge Plan Patient Name: VIVIEN REYES Facility: [facility]:[place] : 1955 Planned Disposition: Home Anticipated Discharge Date: 11/04/18 Discharge Date: 11/04/2018 Expected LOS: 1 Initial Reviewer: [email or web address] Initial Review Date: 11/04/2018 Generated: 11/07/18 6:45 pm Comments DCP- Discharge Planning Updated by [email or web address]: Robel Brown on 11/04/18 2:[address] Patient Name: VIVIEN REYES Admission Status: ER Accout number: [id number] Admission Date: 11-03-2018 : 1955 Admission Diagnosis:SHORTNESS OF BREATH Attending: KEELY LOZANO Current LOS: 1 Anticipated DC Date: 11-04-2018 Planned Disposition: Home Primary Insurance: [facility] MEDICARE SOLUTIONS Discharge Planning Comments: CM MET WITH PT IN ROOM TO DISCUSS DISCHARGE PLANNING AND NEEDS. PT REPORTS LIVING AT HOME INDEPENDENTLY WITH A NEW ROOMMATE. PT HAS CANE, NEBULIZER AND HOME / PORTABLE OXGYEN FROM [facility]. PT HAS NO OUTSIDE SERVICES ASSISTING IN THE HOME. PT DENIES NEED FOR DRUG REHAB SERVICES OR INFORMATION REGARDING COMMUNITY SUPPORT PROGRAMS FOR ADDICTION. CM DISCUSSED AVAILABILITY OF HOME HEALTH, REHAB SERVICES AND MEDICAL EQUIPMENT. PT DENIES DISCHARGE NEEDS, REPORTS A FRIEND WILL PICK HIM UP FOR DISCHARGE HOME TODAY. Magnaflux Operator: Robel Brown DCPIA - Discharge Planning Initial Assessment Updated by [email or web address]: Robel Brown on 11/04/18 3:52 pm * Is the patient Alert and Oriented? Yes * How many steps to enter\exit or inside your home? * PCP DR. HALL * Pharmacy [facility], [place] * Preadmission Environment Home with Family * ADLs Independent * Equipment Cane Nebulizer Oxygen * Other Equipment HOME AND PORTABLE OXYGEN, [facility] * List name and contact numbers for known caregivers / representatives who currently or will assist patient after discharge: ALESIA FLORIAN, FRIEND, JOSE ALFREDO REYES, BROTHER, * Verbal permission to speak to the caregivers and representatives has been obtained from the patient. N/A * Community resources currently utilized None * Please name any agencies selected above. NONE * Additional services required to return to the preadmission environment? No * Can the patient safely return to the preadmission environment? Yes * Has this patient been hospitalized within the prior 30 days at any hospital? No External Providers External Provider: [employer] Next Contact Date: 11/07/2018 Service Request Date: Service Type: Resolution: Reviewer: Comments: Last DP export: 11/04/18 2:56 p Patient Name: VIVIEN REYES Page [phone] at 1746 All edits/amendments must be made on the electronic document DICTATION DATE: 11/07/181744 DRENCHER: LEIGH 11/07/181744 RPT#: [id number] DC DATE:11/04/18 STATUS: DIS IN [facility] [address] [place] [address] END OF REPORT
== END 2018-11-04 15:58 | disposition home or self-care (01) | DRG 291 ==
LOC: D.ER 11:27 → D.M2 14:17 → OBSVTIME 14:24 → D.M2 11-03 09:18
PROVIDERS: Emergency Medicine; Radiology Vascular & Interventional Radiology; ADMIT Internal Medicine Nephrology; ATTEND Internal Medicine Nephrology
PROC: 0W993ZZ Drainage of Right Pleural Cavity, Percutaneous Approach (ICD-10-PCS; principal; 2018-11-02 14:58)
DX: I13.0 Hypertensive heart and chronic kidney disease with heart failure and stage 1 through stage 4 chronic kidney disease, or unspecified chronic kidney disease (principal); J96.21 Acute and chronic respiratory failure with hypoxia; I50.23 Acute on chronic systolic (congestive) heart failure; E87.1 Hypo-osmolality and hyponatremia; F17.213 Nicotine dependence, cigarettes, with withdrawal; N17.9 Acute kidney failure, unspecified; N18.3 Chronic kidney disease, stage 3 (moderate); D50.9 Iron deficiency anemia, unspecified; I25.10 Atherosclerotic heart disease of native coronary artery without angina pectoris; J44.9 Chronic obstructive pulmonary disease, unspecified; F14.10 Cocaine abuse, uncomplicated; F10.10 Alcohol abuse, uncomplicated

== ENCOUNTER 2018-11-25 23:07 | Inpatient (IN) | payer MEDICARE, MEDICAID ==
[~2018-11-25] VITALS: Ht 185.4 cm; Wt 68.2 kg
[2018-11-25 23:39] LABS: BASOPHILS 0.2 % (0-2); HEMATOCRIT 26.2 % (42.0-54.0); HEMOGLOBIN 8.2 g/dL (13.5-17.5); IMMATURE GRANULOCYTES 0.3 % (0-5); LYMPHOCYTES 8.3 % (15-50); MCH 25.4 pg (26.0-34.0); MCHC 31.3 g/dL (31.0-37.0); MCV 81.1 fL (80.0-100.0); MEAN PLATELET VOLUME 8.2 fL (7.4-10.4); MONOCYTES 12.1 % (2-11); NEUTROPHILS 77.1 % (40-80); PLATELET COUNT 203 10x3/uL (130-400); RBC 3.23 10x6/uL (4.20-6.10); RDW 20.4 % (11.5-14.5); WBC 9.6 10x3/uL (4.8-10.8)
[2018-11-25 23:47] LABS: INR 1.36 (0.85-1.17); PROTIME 16.2 SECONDS (11.6-15.0)
[2018-11-25 23:49] LABS: D-DIMER-QUANTITATIVE 2.65 ug/mLFEU (0.20-0.54)
[2018-11-25 23:59] LABS: ALBUMIN 2.5 g/dL (3.4-5.0); ANION GAP 9.3 mmol/L (8-16); BILIRUBIN - TOTAL 0.89 mg/dL (0.2-1.3); CALCIUM 9.1 mg/dL (8.5-10.1); CARBON DIOXIDE 33.1 mmol/L (21.0-32.0); CREATININE - SERUM 1.5 mg/dL (0.6-1.3); POTASSIUM - SERUM 4.4 mmol/L (3.5-5.1); PROTEIN - SERUM 7.5 g/dL (6.4-8.2)
[2018-11-26] VITALS (14 sets, daily range): BP systolic 127–148; BP diastolic 62–85; BMI 28.3
[2018-11-26 00:18] LABS: MAGNESIUM - SERUM 1.6 mg/dL (1.8-2.4)
[2018-11-26 00:27] LABS: TROPONIN-I 0.106 ng/mL (0.000-0.060)
[2018-11-26 00:42] LABS: APPEARANCE CLEAR (CLEAR); BILIRUBIN NEGATIVE (NEGATIVE); COLOR YELLOW (YELLOW); GLUCOSE NEGATIVE (NEGATIVE); KETONE NEGATIVE (NEGATIVE); NITRITE NEGATIVE (NEGATIVE); PROTEIN NEGATIVE (NEGATIVE); UROBILINOGEN NORMAL (NORMAL)
--- NOTE | 2018-11-26 02:00 | NUR ---
RECIEVED TO FLOOR VIA HOSPITAL BED, ACCOMPANIED BY ER STAFF. A&O X 4, ABLE TO SLIDE OVER TO BED IN ROOM, BUT STATES HE IS WEAK WHEN HE WALKS. HAYDE MAT AND SKID PROOF SOCKS IN USE. ALLERGY AND FALL BRACELETS APPLIED. 2L O2 VIA NASAL CANNULA IN USE. SIDE RAILS X 2, BED IN LOWEST POSITION. PT STATES HE TAKES ALL HOME MEDS PRESCRIBED, OTHER THAN HIS NEW WATER PILL, BUT IS UNABLE TO RECALL NAME OF ANY MEDICATIONS. DENIES PAIN/SOB AT THIS TIME. WILL CONTINUE TO MONITOR.
--- NOTE | 2018-11-26 07:00 | NUR ---
RECEIVED REPORT. ASSUMED CARE OF PATIENT. CALL LIGHT WITHIN REACH. PATIENT RESTING IN BED WITH EYES OPEN, RESP EVEN AND UNLABORED. O2 VIA NC, O2 WITH HUMIDIFICATION. PATIENT HAS NO COMPLAINTS AT THIS TIME. SPEECH IS DIFFICULT TO UNDERSTAND, HE STATES THAT EVERYONE HAS A PROBLEM UNDERSTANDING HIM.WHEN PATIENT MAKES AN EFFORT TO SPEAK CLEARLY, HE IS 100% UNDERSTOOD WITH NO COMMUNICATION BARRIER. NO DISTRESS.
--- NOTE | 2018-11-26 08:44 | NUR ---
SVEN CHA RN CALLED AND GAVE ORDERS PER FOR CT THORACENTESIS WITH ALL INDICATED PROCEDURES, MODERATE SEDATION, CBC, BMP, PT, PTT, INR, AND NPO.
--- NOTE | 2018-11-26 08:58 | NUR ---
PATIENT NOTED TO HAVE NOSE BLEED, VERY SLOW BUT DIFFICULTY CLOTTING. PATIENT TAKES PLAVIX AND ASA AT HOME, RECEIVED THESE YESTERDAY AND AN ASA LAST NIGHT ON ARRIVAL TO ED. PATIENT RESTING IN BED. NO DISTRESS. CALL LIGHT WITHIN REACH.
[2018-11-26 09:59] LABS: BASOPHILS 0.3 % (0-2); EOSINOPHILS 1.5 % (0-7); HEMATOCRIT 26.2 % (42.0-54.0); HEMOGLOBIN 8.1 g/dL (13.5-17.5); IMMATURE GRANULOCYTES 0.2 % (0-5); LYMPHOCYTES 8.1 % (15-50); MCH 25.3 pg (26.0-34.0); MCHC 30.9 g/dL (31.0-37.0); MCV 81.9 fL (80.0-100.0); MEAN PLATELET VOLUME 8.6 fL (7.4-10.4); MONOCYTES 10.6 % (2-11); NEUTROPHILS 79.3 % (40-80); RDW 20.4 % (11.5-14.5); WBC 10.2 10x3/uL (4.8-10.8)
[2018-11-26 10:05] LABS: PLATELET COUNT 245 10x3/uL (130-400)
--- NOTE | 2018-11-26 10:10 | NUR ---
CONSENTS SIGNED AND ON CHART FOR THORACENTESIS. SVEN CHA AT BEDSIDE ASSESSING PATIENT. CALL LIGHT WITHIN REACH. NO DISTRESS.
[2018-11-26 10:11] LABS: APTT 38.3 SECONDS (22.8-39.4); INR 1.36 (0.85-1.17); PROTIME 16.2 SECONDS (11.6-15.0)
[2018-11-26 10:21] LABS: ANION GAP 9.2 mmol/L (8-16); CALCIUM 8.9 mg/dL (8.5-10.1); CARBON DIOXIDE 32.1 mmol/L (21.0-32.0); CREATININE - SERUM 1.4 mg/dL (0.6-1.3); POTASSIUM - SERUM 4.3 mmol/L (3.5-5.1)
--- NOTE | 2018-11-26 12:47 | NUR ---
PATIENT CONSTANTLY ON THE CALL LIGHT ASKING WHEN CAN HE EAT, HE IS HUNGRY. HAVE EXPLAINED TO THIS PATIENT HE IS NPO FOR THORACENTESIS. PATIENT CONTINUES TO TELL THIS BOW MAKER HE IS HUNGRY AND WANTS TO KNOW WHEN THEY WILL COME AND GET HIM. THIS BOW MAKER IS UNABLE TO PROVIDED PATIENT WITH A SPECIFIC TIME.
--- NOTE | 2018-11-26 13:11 | NUR ---
PATIENTS BROTHER CALLED TO SEE WHY PATIENT CANT EAT. EXPLAINED SITUATION TO PATIENTS BROTHER. PATIENTS BROTHER STATED HE WOULD CALL THE PATIENT AND TELL HIM HE NEEDS TO BE PATIENT.
--- NOTE | 2018-11-26 13:14 | NUR ---
SPOKE WITH SPECIALS, PATIENT WILL BE TAKEN WITHIN THE NEXT 30 MINUTES.
--- NOTE | 2018-11-26 14:00 | NUR ---
PATIENT TO THORACENTESIS AT THIS TIME.
--- NOTE | 2018-11-26 14:39 | NUR ---
PATIENT BACK FROM IR. PATIENT HAD 1500 ML REMOVED FROM THORACENTESIS OF RIGHT LUNG. NO DISTRESS. DRESSING TO RIGHT BACK CLEAN, DRY AND INTACT. RESTING ON LEFT SIDE AT THIS TIME.
[2018-11-26 16:26] LABS: PROTEIN - BODY FLUID 3.2 G/DL
[2018-11-26 16:51] LABS: MACROPHAGES BF 70 %; NEUT - BF 10 %
[2018-11-26 17:29] LABS: UDS - AMPHET NEGATIVE QUAL (NEGATIVE); UDS - BARB NEGATIVE QUAL (NEGATIVE); UDS - BENZO NEGATIVE QUAL (NEGATIVE); UDS - COCAINE POSITIVE QUAL (NEGATIVE); UDS - OPIATE NEGATIVE QUAL (NEGATIVE); UDS - PCP NEGATIVE QUAL (NEGATIVE); UDS - THC NEGATIVE QUAL (NEGATIVE)
--- NOTE | 2018-11-26 19:36 | NUR ---
RECIEVED UP IN BED WITH EYES OPEN AND TV ON. ALERT AND ORIENTED X4. UP AD SKY. O2 @ 2 LITERS PER N/C IN PLACE. IV TO LEFT UPPER ARM SL.. DSG TO RIGHT MID BACK CDI. TELEMETRY IN PLACE. DENIES ANY NEEDS AT THIS TIME.
[2018-11-27 01:07] VITALS: BP 146/82
[2018-11-27 04:36] VITALS: BP 138/74
[2018-11-27 06:29] LABS: BASOPHILS 0.4 % (0-2); EOSINOPHILS 2.2 % (0-7); HEMATOCRIT 26.7 % (42.0-54.0); HEMOGLOBIN 8.1 g/dL (13.5-17.5); IMMATURE GRANULOCYTES 0.3 % (0-5); LYMPHOCYTES 9.4 % (15-50); MCH 25.2 pg (26.0-34.0); MCHC 30.3 g/dL (31.0-37.0); MCV 82.9 fL (80.0-100.0); MEAN PLATELET VOLUME 8.6 fL (7.4-10.4); MONOCYTES 13.1 % (2-11); NEUTROPHILS 74.6 % (40-80); PLATELET COUNT 242 10x3/uL (130-400); RBC 3.22 10x6/uL (4.20-6.10); RDW 20.7 % (11.5-14.5)
--- NOTE | 2018-11-27 07:00 | NUR ---
RECEIVED REPORT. ASSUMED CARE OF PATIENT. CALL LIGHT WITHIN REACH. PATIENT RESTING ON RIGHT LATERAL SIDE WITH EYES CLOSED, RESP EVEN AND UNLABORED. NO DISTRESS.
[2018-11-27 07:11] LABS: ALBUMIN 2.4 g/dL (3.4-5.0); ANION GAP 11.4 mmol/L (8-16); BILIRUBIN - TOTAL 0.83 mg/dL (0.2-1.3); CALCIUM 8.7 mg/dL (8.5-10.1); CARBON DIOXIDE 31.3 mmol/L (21.0-32.0); CREATININE - SERUM 1.6 mg/dL (0.6-1.3); MAGNESIUM - SERUM 1.7 mg/dL (1.8-2.4); POTASSIUM - SERUM 3.7 mmol/L (3.5-5.1); PROTEIN - SERUM 7.8 g/dL (6.4-8.2)
--- NOTE | 2018-11-27 08:00 | NUR ---
AM MEAL SETUP PROVIDED FOR THIS PATIENT. PATIENT REQUESTING SYRUP AND JELLY OF EXTRA QUANTITIES; PROVIDED UPON REQUEST. MAGNESIUM PROTOCOL INITIATED AT THIS TIME. NO DISTRESS.
[2018-11-27 08:11] VITALS: BP 162/77
--- NOTE | 2018-11-27 10:12 | NUR ---
CALLED RT PATIENT IS REQUESTING HIS BREATHING TREATMENT.
[2018-11-27 11:34] VITALS: BP 130/82
--- NOTE | 2018-11-27 14:10 | NUR ---
RESTING WITH EYES CLOSED, EASILY AROUSED. RESP EVEN AND UNLABORED. NO DISTRESS.
--- NOTE | 2018-11-27 15:02 | NUR ---
NEW ORDER RECEIVED FOR TYLENOL FOR PAIN TO BACK AFTER HAVING THORACENTESIS ON 11/26/18. THANKED MARSHA FOR THE ORDER
[2018-11-27 15:52] VITALS: BP 139/90
--- NOTE | 2018-11-27 18:41 | NUR ---
PATIENT RESTING IN BED. TELEMETRY REAPPLIED. CALL LIGHT WITHIN REACH. NO DISTRESS.
[2018-11-27 20:00] VITALS: BP 141/82
[2018-11-28 00:01] VITALS: BP 138/79
[2018-11-28 04:00] VITALS: BP 147/62
[2018-11-28 04:40] LABS: BASOPHILS 0.2 % (0-2); EOSINOPHILS 3.6 % (0-7); HEMATOCRIT 24.8 % (42.0-54.0); IMMATURE GRANULOCYTES 0.2 % (0-5); LYMPHOCYTES 8.3 % (15-50); MCH 24.9 pg (26.0-34.0); MCHC 30.2 g/dL (31.0-37.0); MCV 82.4 fL (80.0-100.0); MEAN PLATELET VOLUME 8.2 fL (7.4-10.4); MONOCYTES 11.5 % (2-11); NEUTROPHILS 76.2 % (40-80); RBC 3.01 10x6/uL (4.20-6.10); RDW 20.4 % (11.5-14.5); WBC 8.7 10x3/uL (4.8-10.8)
[2018-11-28 04:50] LABS: HEMOGLOBIN 7.5 g/dL (13.5-17.5); PLATELET COUNT 181 10x3/uL (130-400)
[2018-11-28 05:15] LABS: ALBUMIN 2.3 g/dL (3.4-5.0); ANION GAP 6.3 mmol/L (8-16); BILIRUBIN - TOTAL 0.87 mg/dL (0.2-1.3); CALCIUM 8.4 mg/dL (8.5-10.1); CARBON DIOXIDE 36.3 mmol/L (21.0-32.0); CREATININE - SERUM 1.4 mg/dL (0.6-1.3); MAGNESIUM - SERUM 1.4 mg/dL (1.8-2.4); POTASSIUM - SERUM 3.6 mmol/L (3.5-5.1); PROTEIN - SERUM 7.4 g/dL (6.4-8.2)
--- NOTE | 2018-11-28 07:05 | NUR ---
PT LYING IN BED WITH HOB ELEVATED. EYES CLOSED. CHEST RISING AND FALLING. O2 AT 2L VIA NC. SINUS RHYTHM ON THE MONITOR. LEFT UPPER ARM INFUSING NS AND MAGNESIUM AT 100ML/HR. PT HAS NO FURTHER NEEDS AT TIME. BED LOW. CL IN REACH.
[2018-11-28 07:38] VITALS: BP 140/68
--- NOTE | 2018-11-28 09:42 | NUR ---
PT LAYING IN BED. STATING "THIS AIN'T ME. IM HURTING. I DONT NORMALLY FEEL LIKE THIS." CALDERON BARTHOLOMEW AND BRIAN RN IN ROOM. CALDERON BARTHOLOMEW ORDERED ONE TIME 50MG DOSE OF VISTARIL.
--- NOTE | 2018-11-28 10:48 | NUR ---
PT LYING IN BED RESTING QUIETLY. WILL CONTINUE TO MONITOR.
--- NOTE | 2018-11-28 13:57 | NUR ---
PT WALKING IN HALLWAY WITH PMarjorie.
[2018-11-28 14:51] VITALS: BP 147/88
[2018-11-28 20:00] VITALS: BP 139/85
--- NOTE | 2018-11-28 20:33 | NUR ---
HAS BEEN DIRECTOR CLOUD TRANSFORMATION LIGHT NUMEROUS TIMES. CONTINUES TO BE ATTENTION SEEKING. ALERT AND ORIENTED X4. UP AD SKY TO B/R. O2 @ 2 LITERS PER N/C. LUNG SOUNDS DIMINISHED. CONT TO HAVE GENERALIZED EDEMA TO EXTREMITIES AND ORBITAL EDEMA LOOKS BETTER TODAY. IV TO LEFT UPPER ARM SL.TELEMETRY IN PLACE.
[2018-11-29] VITALS: BP 141/80
--- NOTE | 2018-11-29 00:05 | NUR ---
LAYING IN BED WITH HOB ELEVATED AND O2@2 LITERS PER N/C. ALERT AND ORIENTED X4. DENIES ANY NEEDS AT THIS TIME.
[2018-11-29 03:43] VITALS: BP 139/85; Ht 185.4 cm; Wt 68.2 kg
--- NOTE | 2018-11-29 04:19 | NUR ---
GOT OUT OF BED EARLIER THIS SHIFT AND AMBULATED TO B/R. DID NOT USE CALL LIGHT. BED ALARM SOUNDED.
[2018-11-29 04:30] VITALS: BP 143/76
[2018-11-29 05:43] LABS: BASOPHILS 0.3 % (0-2); HEMATOCRIT 25.6 % (42.0-54.0); HEMOGLOBIN 7.8 g/dL (13.5-17.5); IMMATURE GRANULOCYTES 0.2 % (0-5); LYMPHOCYTES 8.2 % (15-50); MCH 25.1 pg (26.0-34.0); MCHC 30.5 g/dL (31.0-37.0); MCV 82.3 fL (80.0-100.0); MONOCYTES 13.7 % (2-11); NEUTROPHILS 72.6 % (40-80); RBC 3.11 10x6/uL (4.20-6.10); RDW 20.8 % (11.5-14.5); WBC 9.2 10x3/uL (4.8-10.8)
[2018-11-29 05:44] LABS: PLATELET COUNT 222 10x3/uL (130-400)
[2018-11-29 06:12] LABS: ALBUMIN 2.4 g/dL (3.4-5.0); ANION GAP 7.7 mmol/L (8-16); BILIRUBIN - TOTAL 0.83 mg/dL (0.2-1.3); CALCIUM 8.6 mg/dL (8.5-10.1); CARBON DIOXIDE 37.1 mmol/L (21.0-32.0); CREATININE - SERUM 1.3 mg/dL (0.6-1.3); POTASSIUM - SERUM 3.8 mmol/L (3.5-5.1); PROTEIN - SERUM 7.8 g/dL (6.4-8.2)
[2018-11-29 06:16] LABS: MAGNESIUM - SERUM 1.8 mg/dL (1.8-2.4)
[2018-11-29 08:25] VITALS: BP 127/68
[2018-11-29 11:36] VITALS: BP 128/63
[2018-11-29] MEDS ORDERED: PROTONIX40 MG PO (13:37)
[2018-11-29] MEDS ORDERED: LEVOFLOXACIN500 MG PO (13:37)
--- NOTE | 2018-11-29 14:46 | NUR ---
I have reviewed this patient and I concur with the Shift Assessment completed by the Licensed Practical Nurse today this shift.
--- NOTE | 2018-11-29 16:57 | MORECARE ---
CASE MANAGEMENT DISCHARGE SUMMARY PATIENT: VIVIEN REYES UNIT: [id number] ADM DATE: 11/26/18 AGE: 63 : 57 SEX: M ROOM/BED: D.2138 AUTHOR: CHARO SONG PHYSICIAN: REFERRING PHYSICIAN: LEVON DON MD DATE OF SERVICE: 11/29/18 Discharge Plan Patient Name: VIVIEN REYES [facility] [facility] 1955 Planned Disposition: Home Anticipated Discharge Date: 11/29/18 Discharge Date: Expected LOS: 3 Initial Reviewer: [email or web address] Initial Review Date: 11/29/2018 Generated: 11/29/18 5:57 pm DCPIA - Discharge Planning Initial Assessment Updated by [email or web address]: Robel Brown on 11/29/18 4:55 pm * Is the patient Alert and Oriented? Yes * How many steps to enter\exit or inside your home? NONE * PCP DR. HALL * [facility] * Preadmission Environment Home with Family * ADLs Independent * Equipment Cane Nebulizer Oxygen * Other Equipment HOME AND PORTABLE OXYGEN, [facility] * List name and contact numbers for known caregivers / representatives who currently or will assist patient after discharge: ALESIA FLORIAN, FRIEND, VIVIEN REYES, BROTHER, * Verbal permission to speak to the caregivers and representatives has been obtained from the patient. N/A * Community resources currently utilized None * Please name any agencies selected above. NONE * Additional services required to return to the preadmission environment? No * Can the patient safely return to the preadmission environment? Yes * Has this patient been hospitalized within the prior 30 days at any hospital? Yes Patient Name: VIVIEN REYES Page [phone] at 1657 All edits/amendments must be made on the electronic document DICTATION DATE: 11/29/181656 GARAGE ATTENDANT: LEIGH 11/29/181656 RPT#: [id number] DC DATE: STATUS: ADM IN [facility] [address] [place] [address] END OF REPORT
--- NOTE | 2018-11-29 17:07 | MORECARE ---
CASE MANAGEMENT DISCHARGE SUMMARY PATIENT: VIVIEN REYES UNIT: [id number] ADM DATE: 11/26/18 AGE: 63 : 57 SEX: M ROOM/BED: D.2087 AUTHOR: CHARO SONG PHYSICIAN: REFERRING PHYSICIAN: LEVON DON MD DATE OF SERVICE: 11/29/18 Discharge Plan Patient Name: VIVIEN REYES Facility: [facility]:[place] : 1955 Planned Disposition: Home Anticipated Discharge Date: 11/29/18 Discharge Date: Expected LOS: 3 Initial Reviewer: [email or web address] Initial Review Date: 11/29/2018 Generated: 11/29/18 6:07 pm Comments DCP- Discharge Planning Updated by [email or web address]: Robel Brown on 11/29/18 3:[address] Patient Name: VIVIEN REYES Admission Status: ER Accout number: [id number] Admission Date: 11-26-2018 : 1955 Admission Diagnosis:SHORTNESS OF BREATH Attending: LEVON DON Current LOS: 3 Anticipated DC Date: 11-29-2018 Planned Disposition: Home Primary Insurance: [facility] MEDICARE SOLUTIONS Discharge Planning Comments: CM MET WITH PT IN ROOM TO DISCUSS DISCHARGE PLANNING AND NEEDS. PT REPORTS LIVING AT HOME INDEPENDENTLY WITH A FRIEND. PT HAS CANE, NEBULIZER, HOME AND PORTABLE OXYGEN FROM [facility]. PT HAS NO OUTSIDE SERVICES ASSISTING IN THE HOME. CM DISCUSSED AVAILABILITY OF HOME HEALTH, REHAB SERVICES AND MEDICAL EQUIPMENT. PT DENIES DISCHARGE NEEDS, REPORTS HIE IS CALLING A FRIEND WHO WILL PICK HIM UP FOR DISCHARGE HOME. CM DISCUSSED NEED FOR PT TO STOP USING ALCOHOL AND COCAINE. PT STATES HE HAS NOW STOPPED AND WILL NO LONGER USE THEM. CM OFFERED SUBSTANCE ABUSE TREATMENT INFORMATION, PT REFUSED. CM OFFERED COMMUNITY SUPPORT PROGRAM INFORMATION, PT REFUSED. PT DENIES DISCHARGE NEEDS AGAIN. MANAGER ACUTE NURSE NOTIFIED. Director Of Services: Robel Brown DCPIA - Discharge Planning Initial Assessment Updated by [id number]: Robel Brown on 11/29/18 4:55 pm * Is the patient Alert and Oriented? Yes * How many steps to enter\exit or inside your home? NONE * PCP DR. HALL * Pharmacy [facility], [place] * Preadmission Environment Home with Family * ADLs Independent * Equipment Cane Nebulizer Oxygen * Other Equipment HOME AND PORTABLE OXYGEN, [facility] * List name and contact numbers for known caregivers / representatives who currently or will assist patient after discharge: ALESIA FLORIAN, FRIEND, VIVIEN REYES, BROTHER, * Verbal permission to speak to the caregivers and representatives has been obtained from the patient. N/A * Community resources currently utilized None * Please name any agencies selected above. NONE * Additional services required to return to the preadmission environment? No * Can the patient safely return to the preadmission environment? Yes * Has this patient been hospitalized within the prior 30 days at any hospital? Yes Last DP export: 11/29/18 3:57 p Patient Name: VIVIEN REYES Page [id number] at 1707 All edits/amendments must be made on the electronic document DICTATION DATE: 11/29/181706 HOME DEPOT REP: LEIGH 11/29/181706 RPT#: [id number] DC DATE: STATUS: ADM IN [facility] [address] [place] [address] END OF REPORT
[2018-11-29 21:06] LABS: ACID FAST SMEAR Negative (()); AFB SPECIMEN PROCESSING Concentration (())
[2018-11-30 13:10] LABS: FUNGUS STAIN Final report (())
[2018-12-05 12:09] LABS: FUNGUS MYCOLOGY CULTURE Preliminary report (())
== END 2018-11-29 18:45 | disposition home or self-care (01) | DRG 291 ==
LOC: D.ER 23:07 → D.M2 11-26 01:00
PROVIDERS: Family Medicine; General Practice; Internal Medicine Nephrology; Internal Medicine Pulmonary Disease; ADMIT Family Medicine; ATTEND Family Medicine
PROC: 0W993ZZ Drainage of Right Pleural Cavity, Percutaneous Approach (ICD-10-PCS; principal; 2018-11-26 14:25)
DX: I13.0 Hypertensive heart and chronic kidney disease with heart failure and stage 1 through stage 4 chronic kidney disease, or unspecified chronic kidney disease (principal); J96.21 Acute and chronic respiratory failure with hypoxia; I50.23 Acute on chronic systolic (congestive) heart failure; N17.9 Acute kidney failure, unspecified; F17.213 Nicotine dependence, cigarettes, with withdrawal; J98.11 Atelectasis; R18.8 Other ascites; N18.3 Chronic kidney disease, stage 3 (moderate); F10.10 Alcohol abuse, uncomplicated; D50.9 Iron deficiency anemia, unspecified; I25.10 Atherosclerotic heart disease of native coronary artery without angina pectoris; J43.9 Emphysema, unspecified; K74.60 Unspecified cirrhosis of liver

== ENCOUNTER 2018-12-27 13:20 | Inpatient (IN) | payer MEDICARE, MEDICAID ==
[~2018-12-27] VITALS: Ht 185.4 cm; Wt 82.7 kg
[~2018-12-27 13:20] MED LIST changes: +LEVOFLOXACIN500 MG PO; +PROTONIX40 MG PO
[2018-12-27 15:04] LABS: APTT 34.6 SECONDS (22.8-39.4); INR 1.36 (0.85-1.17); PROTIME 16.2 SECONDS (11.6-15.0)
[2018-12-27 15:11] LABS: ALBUMIN 2.9 g/dL (3.4-5.0); ALKALINE PHOSPHATASE 225 U/L (46-116); ALT (SGPT) 11 U/L (10-68); BILIRUBIN - TOTAL 0.96 mg/dL (0.2-1.3); CALC OSMOLALITY 288 mosm/kg (275-300); CALCIUM 8.8 mg/dL (8.5-10.1); CARBON DIOXIDE 28.2 mmol/L (21.0-32.0); CHLORIDE - SERUM 100 mmol/L (98-107); CREATININE - SERUM 2.4 mg/dL (0.6-1.3); GLUCOSE 119 mg/dL (74-106); POTASSIUM - SERUM 5.1 mmol/L (3.5-5.1); PROTEIN - SERUM 8.2 g/dL (6.4-8.2); SODIUM 136 mmol/L (136-145); UREA NITROGEN 57 mg/dL (7-18); eGFR NON AFRICAN AMERICAN 29 mL/min (90-120)
[2018-12-27 15:12] LABS: BASOPHILS 0.3 % (0-2); EOSINOPHILS 4.6 % (0-7); HEMATOCRIT 23.7 % (42.0-54.0); IMMATURE GRANULOCYTES 0.4 % (0-5); LYMPHOCYTES 7.1 % (15-50); MCH 27.5 pg (26.0-34.0); MCHC 30.4 g/dL (31.0-37.0); MCV 90.5 fL (80.0-100.0); MEAN PLATELET VOLUME 8.8 fL (7.4-10.4); MONOCYTES 9.5 % (2-11); NEUTROPHILS 78.1 % (40-80); PLATELET COUNT 237 10x3/uL (130-400); RBC 2.62 10x6/uL (4.20-6.10); RDW 25.8 % (11.5-14.5)
[2018-12-27 15:28] LABS: CKMB 5.3 U/L (0.0-3.6); CREATINE KINASE 110 UL (21-232)
[2018-12-27 15:31] LABS: HEMOGLOBIN 7.2 g/dL (13.5-17.5)
--- NOTE | 2018-12-27 15:33 | NUR ---
NOTIFIED DR. COSTA HGB 7.2
[2018-12-27 15:36] LABS: TROPONIN-I 0.101 ng/mL (0.000-0.060)
--- NOTE | 2018-12-27 15:40 | NUR ---
NOTIFIED DR. COSTA OF TROP 0.101. PT WENT TO CT
[2018-12-27 16:58] LABS: CKMB 6.1 U/L (0.0-3.6); CREATINE KINASE 117 UL (21-232)
[2018-12-27 16:59] LABS: TROPONIN-I 0.095 ng/mL (0.000-0.060)
[2018-12-27 17:32] LABS: % SATURATION 17 % (15-55); IRON 58 ug/dl (35-150); TOTAL IRON BIND CAPACITY 336 ug/dl (260-445); UNSAT IRON BIND CAPACITY 278 ug/dl (150-375)
[2018-12-27 18:11] VITALS: BP 99/69; BMI 26.9
--- NOTE | 2018-12-27 21:45 | NUR ---
PT IV INFULTRATED. NEW IV SITE RT FA 22G. ATTEMPTS X2. PT TOLERATED WELL. WILL CONTINUE PLAN OF CARE.
[2018-12-27 23:06] LABS: CREATINE KINASE 132 UL (21-232)
[2018-12-27 23:08] LABS: TROPONIN-I 0.113 ng/mL (0.000-0.060)
[2018-12-27 23:55] VITALS: BP 150/88
--- NOTE | 2018-12-27 23:55 | NUR ---
BLOOD INFUSION STARTED. PT VITALS STABLE. WILL FALLOW UP.
[2018-12-28] VITALS (18 sets, daily range): BP systolic 87–159; BP diastolic 58–107; BMI 26.9
--- NOTE | 2018-12-28 03:07 | NUR ---
PT RESTING IN BED. EYES CLOSED. BREATHING LABORED, PT GRUNTING, AND WHEEZING. RT SIDE NECK SWELLING. IV SITE RT FA DRESSING CLEAN DRY AND INTACT. NO SIGNS OF INFECTION. BLOOD STILL TRANSFUSING. PT TOLERATING WELL AND VITALS STABLE. BOWEL SOUNDS HYPOACTIVE. ABD DISTENDED AND FIRM. O2 3L NASAL CANNULA. WILL CONTINUE PLAN OF CARE. CALL LIGHT IN REACH. BED LOWERED AND LOCKED. HAYDE ALARM ON. BED RAILS UP X2.
--- NOTE | 2018-12-28 03:20 | NUR ---
I have reviewed this patient and I concur with the Shift Assessment completed by the Licensed Practical Nurse today this shift.
--- NOTE | 2018-12-28 04:00 | NUR ---
BLOOD FINISHED. PT VITALS STABLE.
--- NOTE | 2018-12-28 04:15 | NUR ---
PT PULLED OUT IV. WILL START NEW IV SITE FOR ABX.
--- NOTE | 2018-12-28 04:37 | NUR ---
NEW IV SITED LT UPPER ARM 20G. ATTEMPTS X1. PT TOLERATED WELL. WILL CONTINUE IV FLUIDS.
[2018-12-28 05:57] LABS: LYMPHOCYTES 6.7 % (15-50); MCH 29.8 pg (26.0-34.0); MEAN PLATELET VOLUME 8.7 fL (7.4-10.4); NEUTROPHILS 91.5 % (40-80); PLATELET COUNT 210 10x3/uL (130-400); RBC 2.99 10x6/uL (4.20-6.10); RDW 26.6 % (11.5-14.5)
--- NOTE | 2018-12-28 06:45 | NUR ---
SWELLING NOTED TO RT MAMMORY GLAND, LEFT POSTERIOR BACK AND LEFT NECK. O2 PLACE ON PATIENT AT 2L/M, INC UA AND STOOL. COMPLETE BED CHANGE DONE. STOOL WAS DARK IN COLOR. ABDOMEN DISTENDED AND TIGHT. REPOSITIONED IN BED HAYDE MAT REACTIVATED.SR UP X2 CALL LIGHT WITHIN REACH.
[2018-12-28 07:08] LABS: ALBUMIN 3.2 g/dL (3.4-5.0); ALKALINE PHOSPHATASE 247 U/L (46-116); BILIRUBIN - TOTAL 1.86 mg/dL (0.2-1.3); CALC OSMOLALITY 292 mosm/kg (275-300); CALCIUM 8.9 mg/dL (8.5-10.1); CARBON DIOXIDE 24.2 mmol/L (21.0-32.0); CHLORIDE - SERUM 100 mmol/L (98-107); CKMB 11.2 U/L (0.0-3.6); CREATINE KINASE 174 UL (21-232); CREATININE - SERUM 2.4 mg/dL (0.6-1.3); GLUCOSE 107 mg/dL (74-106); MAGNESIUM - SERUM 2.3 mg/dL (1.8-2.4); PHOSPHOROUS 6.6 mg/dL (2.5-4.9); PRO BNP 17143 pg/mL (0-125); PROTEIN - SERUM 8.9 g/dL (6.4-8.2); SODIUM 138 mmol/L (136-145); UREA NITROGEN 59 mg/dL (7-18); eGFR NON AFRICAN AMERICAN 29 mL/min (90-120)
[2018-12-28 07:09] LABS: ALT (SGPT) 14 U/L (10-68); TROPONIN-I 0.144 ng/mL (0.000-0.060)
--- NOTE | 2018-12-28 07:30 | NUR ---
ROUNDING ON PT. NOTED PT IN DISTRESS. RAPID RESPONSE CALLED, SEE RAPID SHEET.
[2018-12-28 07:42] LABS: HEMATOCRIT 28.7 % (42.0-54.0); HEMOGLOBIN 8.9 g/dL (13.5-17.5)
--- NOTE | 2018-12-28 08:30 | NUR ---
CALLED TO ROOM. NO RESP NOTED PT NOT NONRESPONSIVE AT THIS TIME. COLD BLUE CALLED. SEE COLD BLUE SHEET.
--- NOTE | 2018-12-28 09:40 | NUR ---
PT TO RADIOLOGY AT THIS TIME. VSS. FAMILY AT BEDSIDE GIVEN UPDATE.
[2018-12-28 10:36] LABS: PROTEIN - BODY FLUID 4.1 G/DL
--- NOTE | 2018-12-28 11:00 | NUR ---
REASSESSMENT COMPLETE PER FLOW SHEET. VSS. PT BACK FROM RADIOLOGY AT THIS TIME. DR NORRIS AT BEDSIDE GIVEN UPDATE. WILL CONTINUE TO MONITOR
[2018-12-28 11:26] LABS: MACROPHAGES BF 66 %; NEUT - BF 28 %
--- NOTE | 2018-12-28 12:03 | NUR ---
DR. KELLEY AT BEDSIDE, UPDATE GIVEN, NO NEW ORDERS RECIEVED
--- NOTE | 2018-12-28 13:56 | MORECARE ---
CASE MANAGEMENT DISCHARGE SUMMARY PATIENT: VIVIEN REYES UNIT: [id number] ADM DATE: 12/27/18 AGE: 63 : 57 SEX: M ROOM/BED: D.2303 AUTHOR: CHARO SONG PHYSICIAN: REFERRING PHYSICIAN: KEELY LOZANO MD DATE OF SERVICE: 12/28/18 Discharge Plan Patient Name: VIVIEN REYES Facility: [facility]:[place] : 1955 Planned Disposition: Anticipated Discharge Date: Discharge Date: Expected LOS: Initial Reviewer: [email or web address] Initial Review Date: 12/28/2018 Generated: 12/28/18 2:55 pm Comments DCP- Discharge Planning Updated by [id number]: Tala Rodriguez on 12/28/18 6:[address] CM attempted to do initial admission assessment but the patient is not able to stay awake to answer questions. His speech is not clear and he is very hard to understand at this time. CM spoke to Charge nurse who reported they medicated him with Benadryl and they are having a hard time understanding him as well. Cm will try again at a later time when he is able to complete assessment. Riddhi Verdin RN, [facility] DCPIA - Discharge Planning Initial Assessment Updated by [id number]: Jeannie Mccray on 12/28/18 1:54 pm * Is the patient Alert and Oriented? No * How many steps to enter\exit or inside your home? * PCP RAFAEL * Pharmacy [facility] * Preadmission Environment Home with Family * ADLs Independent * Other Equipment HOME & PORTABLE 02 * List name and contact numbers for known caregivers / representatives who currently or will assist patient after discharge: ALESIA FLORIAN - FRIEND - [phone] VIVIEN REYES - BROTHER - [phone] * Verbal permission to speak to the caregivers and representatives has been obtained from the patient. N/A * Community resources currently utilized None * Additional services required to return to the preadmission environment? No * Can the patient safely return to the preadmission environment? Yes * Has this patient been hospitalized within the prior 30 days at any hospital? Yes Patient Name: VIVIEN REYES Page 31985 at 1356 All edits/amendments must be made on the electronic document DICTATION DATE: 12/28/18 1355 DIRECT SUPPORT PROFESSIONAL CAREGIVER: LEIGH 12/28/18 1354 RPT#: [id number] DC DATE: STATUS: ADM IN [facility] [address] [place] [address] END OF REPORT
--- NOTE | 2018-12-28 14:13 | MORECARE ---
CASE MANAGEMENT DISCHARGE SUMMARY PATIENT: VIVIEN REYES UNIT: [id number] ADM DATE: 12/27/18 AGE: 63 : 57 SEX: M ROOM/BED: D.2303 AUTHOR: NOHEMIDOC PHYSICIAN: REFERRING PHYSICIAN: KEELY LOZANO MD DATE OF SERVICE: 12/28/18 Discharge Plan Patient Name: VIVIEN REYES Facility: [facility]:[place] : 1955 Planned Disposition: Anticipated Discharge Date: Discharge Date: Expected LOS: Initial Reviewer: [email or web address] Initial Review Date: 12/28/2018 Generated: 12/28/18 3:13 pm Comments DCP- Discharge Planning Updated by [id number]: Jeannei Mccray on 12/28/18 1:[address] Patient Name: VIVIEN REYES Admission Status: Elective Accout number: [id number] Admission Date: 12-27-2018 : 1955 Admission Diagnosis: Attending: KEELY LOZANO Current LOS: 1 Anticipated DC Date: Planned Disposition: Primary Insurance: [facility] MEDICARE SOLUTIONS Discharge Planning Comments: CM met with patient at bedside after explaining CM role and obtaining verbal consent. Patient lives at home with his friend where he is independent with his care and plans to return there upon discharge. Patient feels this would be a safe discharge. CM discussed availability / needs of home health and medical equipment. Patient has home / portable 02 with [facility]. Patient denies any discharge needs at this time. Patient states he will have his family drive him home upon discharge. CM will continue to follow and assist as needed with discharge planning / needs. Merchandising Coordinator: Jeannie Mccray DCP- Discharge Planning Updated by [email or web address]: Tala Rodriguez on 12/28/18 6:[address] CM attempted to do initial admission assessment but the patient is not able to stay awake to answer questions. His speech is not clear and he is very hard to understand at this time. CM spoke to Charge nurse who reported they medicated him with Benadryl and they are having a hard time understanding him as well. Cm will try again at a later time when he is able to complete assessment. Riddhi Verdin RN, [facility] DCPIA - Discharge Planning Initial Assessment Updated by [email or web address]: Jeannie Mccray on 12/28/18 1:54 pm * Is the patient Alert and Oriented? No * How many steps to enter\exit or inside your home? * PCP RAFAEL * Pharmacy [facility] * Preadmission Environment Home with Family * ADLs Independent * Other Equipment HOME & PORTABLE 02 * List name and contact numbers for known caregivers / representatives who currently or will assist patient after discharge: ALESIA FLORIAN - FRIEND - [phone] VIVIEN REYES - BROTHER - [phone] * Verbal permission to speak to the caregivers and representatives has been obtained from the patient. N/A * Community resources currently utilized None * Additional services required to return to the preadmission environment? No * Can the patient safely return to the preadmission environment? Yes * Has this patient been hospitalized within the prior 30 days at any hospital? Yes Last DP export: 12/28/18 12:56 p Patient Name: VIVIEN REYES Page [phone] at 1413 All edits/amendments must be made on the electronic document DICTATION DATE: 12/28/181412 TRIMMER MEAT: LEIGH 12/28/181412 RPT#: [id number] DC DATE: STATUS: ADM IN [facility] [address] [place] [address] END OF REPORT
--- NOTE | 2018-12-28 15:00 | NUR ---
PT BACK FROM SURGERY, HOOKED TO MONITORS, VSS, WILL CON'T TO MONITOR
[2018-12-28 16:46] LABS: UDS - AMPHET NEGATIVE QUAL (NEGATIVE); UDS - BARB NEGATIVE QUAL (NEGATIVE); UDS - BENZO POSITIVE QUAL (NEGATIVE); UDS - COCAINE NEGATIVE QUAL (NEGATIVE); UDS - OPIATE NEGATIVE QUAL (NEGATIVE); UDS - PCP NEGATIVE QUAL (NEGATIVE); UDS - THC NEGATIVE QUAL (NEGATIVE)
[2018-12-28 18:15] LABS: APPEARANCE HAZY (CLEAR); BILIRUBIN NEGATIVE (NEGATIVE); COLOR RED (YELLOW); GLUCOSE NEGATIVE (NEGATIVE); KETONE NEGATIVE (NEGATIVE); NITRITE NEGATIVE (NEGATIVE); PROTEIN 1+ mg/dL (NEGATIVE); SPECIFIC GRAVITY 1.015 (1.005-1.020); UROBILINOGEN NORMAL (NORMAL)
[2018-12-28 18:16] LABS: BACTERIA FEW /hpf (NEGATIVE); RED CELLS - URINE >50 /hpf (0-5); WHITE CELLS - URINE OCC /hpf (NEGATIVE)
--- NOTE | 2018-12-28 19:00 | NUR ---
REPORT RECEIVED AT BEDSIDE, SHIFT ASSESSMENT COMPLETE SEE FLOW SHEET, PT SEDATED ON VENT, ORAL CARE AND SUCTIONING COMPLETED, BILAT EYE AND NECK SWELLING, RT LATERAL CHECT INCISION, DRSG SATURATED IN BLOOD, COMPLETE DRSG CHANGE WITH 4x4 GAUZE AND TEGADERM DRSG, PT TOLLERATED PROCEDURE WELL, CHG BED BATH COMPLETED WITH GHOSH CARE, STAT-LOCK REPLACED AND REPOSITIONED ON RIGHT UPPER THIGH, RIGHT UPPER ABDOMEN/CHEST SKIN FIRM, LEFT BUTTOCK HAS DIME SIZED SKIN SORE WITH SURROUNDING SKIN FIRM TO PALPATION, GENERALIZED EDEMA NOTED, BLE SKIN SCALEY, COMPLETE LINEN CHANGE, REPOSITIONED PT, ELEVATED HOB PER ORDERS, BILAT WRIST RESTRAINTS SECURED AND REPOSITIONED, SR UP X2 CALL LIGHT IN REACH, VSS, WILL CONTINIUE TO MONITOR
--- NOTE | 2018-12-28 23:00 | NUR ---
REASSESSMENT COMPLETE SEE FLOW SHEET, PT SEDATED, REPOSITIONED IN BED ON LEFT SIDE WITH PILLOW, ORAL CARE AND SUCTIONING COMPLETED, VSS, WILL CONTINUE TO MONITOR
[2018-12-29] VITALS (24 sets, daily range): BP systolic 110–131; BP diastolic 57–71; Ht 185.4 cm; Wt 82.7 kg
--- NOTE | 2018-12-29 03:00 | NUR ---
REASSESSMENT COMPLETE SEE FLOW SHEET, PT SEDATED ON VENT, NO ACUTE S/S OF DISTRESS NOTED SINCE PRIOR ASSESSMENT, REPOSITIONED PT IN BED, RIGHT LATERAL CHEST INCISION SITE DRSG BLOODY, REINFORCED WITH GAUZE AND TEGADERM DRSG, ORAL CARE AND SUCTIONING COMPLETED, VSS, NSR WITH PVC'S ON CM, WILL CONTINUE TO MONITOR
[2018-12-29 04:54] LABS: APTT 33.7 SECONDS (22.8-39.4); INR 1.61 (0.85-1.17); PROTIME 18.5 SECONDS (11.6-15.0)
[2018-12-29 05:01] LABS: ALBUMIN 2.6 g/dL (3.4-5.0); ANION GAP 14.6 mmol/L (8-16); BILIRUBIN - DIRECT 1.06 mg/dL (0.00-0.30); BILIRUBIN - INDIRECT 0.35 mg/dL (0.00-1.00); BILIRUBIN - TOTAL 1.41 mg/dL (0.2-1.3); CALCIUM 7.9 mg/dL (8.5-10.1); CARBON DIOXIDE 28.9 mmol/L (21.0-32.0); CREATININE - SERUM 2.8 mg/dL (0.6-1.3); MAGNESIUM - SERUM 2.1 mg/dL (1.8-2.4); PHOSPHOROUS 6.8 mg/dL (2.5-4.9); POTASSIUM - SERUM 5.5 mmol/L (3.5-5.1); PROTEIN - SERUM 7.4 g/dL (6.4-8.2)
[2018-12-29 05:14] LABS: BASOPHILS 0 % (0-2); EOSINOPHILS 0 % (0-7); HEMATOCRIT 24.4 % (42.0-54.0); IMMATURE GRANULOCYTES 0.6 % (0-5); LYMPHOCYTES 2.9 % (15-50); MCH 27.4 pg (26.0-34.0); MCHC 30.7 g/dL (31.0-37.0); MEAN PLATELET VOLUME 8.8 fL (7.4-10.4); MONOCYTES 8.8 % (2-11); NEUTROPHILS 87.7 % (40-80); PLATELET COUNT 185 10x3/uL (130-400); RBC 2.74 10x6/uL (4.20-6.10); RDW 24.3 % (11.5-14.5)
[2018-12-29 05:15] LABS: HEMOGLOBIN 7.5 g/dL (13.5-17.5); MCV 89.1 fL (80.0-100.0); WBC 14.3 10x3/uL (4.8-10.8)
--- NOTE | 2018-12-29 05:44 | NUR ---
DR.DWORKIN CERNA
--- NOTE | 2018-12-29 05:45 | NUR ---
DARRYL RICHEY APRN CALLED ICU, UPDATE GIVEN ON PT AND LAB RESULTS, NO NEW ORDERS RECEIVED AT THIS TIME, DARRYL RICHEY APRN STATED WILL REVIEW LATER TODAY, NO FURTHER AT THIS TIME, WILL CONTINUE TO MONITOR
--- NOTE | 2018-12-29 06:00 | NUR ---
RIGHT LATERAL CHEST DRNG COMPLETELY SATURATED WITH BLOOD AND TEGADERM DRSG NOT ADHERING TO SKIN, DRSG REMOVED AND REPLACED WITH VASELINE 2x2 GAUZE AND 4x4 GAUZE WITH TEGADERM OCCLUSIVE DRSG, PT TOLLERATED WELL, NO ACUTE S/S OF DISTRESS NOTED, VSS, WILL CONTINUE TO MONITOR
--- NOTE | 2018-12-29 07:00 | NUR ---
REPORT RECEIVED. ASSESSMENT COMPLETE PER FLOW SHEET. VSS. PT RESTING COMFORTABLY ORAL ENDOTRACH CARE ADM. REPOSITIONED FOR COMFORT WILL CONTINUE TO MONITOR
[2018-12-29 07:58] LABS: PROTEIN - BODY FLUID 4.1 G/DL
[2018-12-29 08:22] LABS: MACROPHAGES BF 30 %; MESOTHELIALS BF 12 %; NEUT - BF 48 %
--- NOTE | 2018-12-29 08:43 | NUR ---
Nutrition follow-up: Pt is s/p code blue; intubated, sedated at this time. Propofol @ 24.3 ml/hr OGT->LIWS Labs reviewed; BUN/Cr elevated Wt: 199# RDN will assist with nutrition support when medically feasible Following.
--- NOTE | 2018-12-29 08:55 | OP ---
PATIENT NAME: VIVIEN REYES SR MEDICAL RECORD: [id number] :57 LOCATION:[facility] D.2303 ADMISSION DATE:12/27/18 SURGEON: FAM HICKMAN MD DATE OF OPERATION: 12/28/2018 SURGEON: Fam Hickman MD ANESTHESIA: General anesthesia by Samy Rodrigues CRNA DIAGNOSIS: Urinary retention due to urethral stricture. PROCEDURES: Cystoscopy, urethral stricture dilation, insertion of a Huerta catheter over a guidewire. FINDINGS: Penile edema with a urethral meatal stenosis and a bulbar urethral stricture. ESTIMATED BLOOD LOSS: None. CLINICAL HISTORY: This is a 63-year-old male, who is in the intensive care unit, intubated and ventilated for respiratory failure. He has a severe congestive heart failure with an ejection fraction of 23% and a right pleural effusion, which was drained today by thoracentesis. Fluid monitoring is required and the nursing staff cannot get a Huerta catheter inserted. He comes to have this done under cystoscopic guidance. He is already on IV antibiotics in the intensive care unit. He was transferred, intubated, and ventilated. DESCRIPTION OF PROCEDURE: The patient was placed on the cystoscopy table. He was given induction of general anesthesia. He was placed in the lithotomy position, prepped and draped. He has severe generalized edema. The penis is included in the edema. The urethral meatus is very tight. I had to use urethral sounds to dilate the urethral meatus to 24 Saudi Arabian. We could then insert a 21-Saudi Arabian cystoscope with 30-degree lens. I encountered another stricture at the bulbar urethral level. The scope could not pass through the stricture, I inserted a Sensor wire through the stricture into the bladder. The scope was then removed. The patient is on Plavix. Due to this, I am reluctant to incise the stricture. Instead a 16-Saudi Arabian gambell tip catheter was put down over the wire. The catheter was able to dilate the stricture and get past it. Once the catheter was in the bladder, the balloon was inflated with 10 cc of sterile water. The Sensor wire was removed entirely. We then placed the catheter to bag drainage. The patient was transferred back to the intensive care unit. TRANSINT:[id number] Voice Confirmation ID: [id number] DOCUMENT ID: [id number] OPERATIVE REPORT [id number] VIVIEN REYES FAM VO SR, MD at 0855 CC: [id number] DICTATION DATE: 12/28/18 1510 TRANSPORT CONDUCTOR: 12/28/18 2235 ADM IN [place] [id number] [place] [id number]
--- NOTE | 2018-12-29 09:10 | NUR ---
FAMILY CALLED STATED PASSWORD GIVEN UDPATE. NO NEW CHANGES PT RESTING COMFORTABLY WILL CONTINUE TO MONITOR
--- NOTE | 2018-12-29 11:32 | NUR ---
DR NORRIS AT BEDSIDE REQUEST CONSENT FOR BRONCH TODAY. TILA BROTHER ANUSHA CALLED GIVEN UPDATE. T ORDER TO CONTINUE WITH BROCH VERIFIED BY FILIPE AND PADMINI CUELLAR. NEEDS MET. DR NORRIS GIVENUPDATE
--- NOTE | 2018-12-29 13:00 | NUR ---
UPDATE GIVEN TO FAMILY OVER PHONE, PASSWORD GIVEN
--- NOTE | 2018-12-29 15:00 | NUR ---
REASSESSMENT COMPLETE, NO CHANGES NOTED, REPOSTIONED FOR COMFORT, ORAL CARE PROVIDED,
--- NOTE | 2018-12-29 16:43 | NUR ---
FAMILY CALLED GIVEN XIAO
--- NOTE | 2018-12-29 19:00 | NUR ---
REPORT RECEIVED, SHIFT ASSESSMENT COMPLETE PER FLOW SHEET, PT RESTING COMFORTABLY IN BED, SEDATED ON VENT, ORAL CARE AND SUCTIONING COMPLETED, HOB ELEVATED, BILAT SOFT WRIST RESTRAINTS REPOSITIONED SKIN ASSESSED, RIGHT LATERAL CHEST INCISION SITE C/D/I DRSG SECURED, GHOSH CATH TO GRAVITY BAG, PENIS AND SCROTUM ENLARGED, ELEVATED SCROTUM WITH SLING, REPOSITIONED IN BED, VSS, NSR ON CM, NO ACUTE S/S OF DISTRESS NOTED, WILL CONTINUE TO MONITOR
--- NOTE | 2018-12-29 23:00 | NUR ---
REASSESSMENT COMPLETE, NO ACUTE CHANGES FROM PRIOR ASSESSMENT, PT RESTING COMFORTABLY, REPOSITIONED IN BED, ORAL CARE AND SUCTIONING COMPLETE, VSS, WILL CONTINUE TO MONITOR
[2018-12-30] VITALS (24 sets, daily range): BP systolic 105–138; BP diastolic 62–92
[2018-12-30 03:30] LABS: BASOPHILS 0 % (0-2); EOSINOPHILS 0 % (0-7); HEMATOCRIT 23.7 % (42.0-54.0); IMMATURE GRANULOCYTES 0.2 % (0-5); LYMPHOCYTES 3.9 % (15-50); MCH 27.3 pg (26.0-34.0); MCHC 31.2 g/dL (31.0-37.0); MCV 87.5 fL (80.0-100.0); MEAN PLATELET VOLUME 8.7 fL (7.4-10.4); NEUTROPHILS 86.9 % (40-80); PLATELET COUNT 169 10x3/uL (130-400); RBC 2.71 10x6/uL (4.20-6.10); RDW 24.3 % (11.5-14.5); WBC 12.3 10x3/uL (4.8-10.8)
[2018-12-30 03:46] LABS: ANION GAP 13.8 mmol/L (8-16); CALCIUM 7.9 mg/dL (8.5-10.1); CREATININE - SERUM 2.9 mg/dL (0.6-1.3); MAGNESIUM - SERUM 2.2 mg/dL (1.8-2.4); PHOSPHOROUS 5.1 mg/dL (2.5-4.9); POTASSIUM - SERUM 4.8 mmol/L (3.5-5.1)
[2018-12-30 03:57] LABS: HEMOGLOBIN 7.4 g/dL (13.5-17.5)
--- NOTE | 2018-12-30 04:00 | NUR ---
DARRYL RICHEY APRN PAGED R/T CRITICAL Hgb LAB 7.4, ORDERS RECEIVED TO TRANSFUSE 1 UNIT PRBC, LAB NOTIFIED, NO FURTHER AT THIS TIME, WILL CONTINUE TO ASSESS
--- NOTE | 2018-12-30 04:55 | NUR ---
1 UNIT PRBC STARTED PER ORDERS, NO ACUTE S/S OF DISTRESS NOTED, VSS, WILL CONTINUE TO MONITOR
--- NOTE | 2018-12-30 06:30 | NUR ---
CHG AND BED BATH WITH LINEN CHANGE COMPLETED, RIGHT LATERAL CHEST DRSG CHANGE WITH VASALINE 2x2 AND 4X4 GAUZE AND TEGADERM, NO ACUTE S/S OF DISTRESS NOTED FROM PT, REPOSITIONED FOR COMFORT, HOB ELEVATED PER ORDERS, ORAL CARE AND SUCTIONING COMPLETED, NSR ON CM, OTHER VSS, WILL CONTINUE TO MONITOR
--- NOTE | 2018-12-30 07:00 | NUR ---
BEDSIDE REPORT RECEIVED. ASSESSMENT COMPLETED PER FLOWSHEET, SEE FLOWSHEET FOR ADDITIONAL INFORMATION. NO NEEDS OR DISTRESS NOTED AT THIS TIME. VSS. WILL CONT TO MONITOR.
--- NOTE | 2018-12-30 08:51 | NUR ---
Nutrition follow-up: Pt remains intubated, sedated Propofol @ 35.1 ml/hr Nepro started @ 10 ml/hr to increase to goal rate of 40 ml/hr per Dr. Doe Labs reviewed Wt: 196# (IBW: 184#) TF at 40 ml/hr + propofol @ 35.1 ml/hr will provide: 2655 kcal 77 gms protein 700 ml free H2O RDN following.
--- NOTE | 2018-12-30 09:00 | NUR ---
0900 MEDICATIONS GIVEN. VSS. WILL CONT TO MONITOR.
--- NOTE | 2018-12-30 11:00 | NUR ---
AT BEDSIDE. DRESSING CHANGED FROM THORACENTESIS ON RIGHT CHEST SIDE. TURNED PT PER COMFORT. VSS. WILL CONT TO MONITOR.
--- NOTE | 2018-12-30 13:00 | NUR ---
1300 MEDICATIONS GIVEN. VSS. WILL CONT TO MONITOR.
[2018-12-30 14:09] LABS: FUNGUS STAIN Final report (())
[2018-12-30 14:09] LABS: FUNGUS STAIN Final report (())
--- NOTE | 2018-12-30 15:00 | NUR ---
REASSESSMENT COMPLETE, NO CHANGES NOTED, PT RESTING AT THIS TIME, VSS, WILL CON'T TO MONITOR
[2018-12-30 15:10] LABS: AFB SPECIMEN PROCESSING Concentration (())
[2018-12-30 15:10] LABS: AFB SPECIMEN PROCESSING Concentration (())
--- NOTE | 2018-12-30 17:00 | NUR ---
FAMILY AT BEDSIDE. VSS. NO NEEDS OR DISTRESS NOTED AT THIS TIME. WILL CONT TO MONITOR.
--- NOTE | 2018-12-30 19:20 | NUR ---
RECEIVED CARE OF PT, ASSESSMENT PER FLOWSHEET. PT INTUBATED AND SEDATED ON VENT, GTT'S PER FLOWSHEET, PPP, HR SR ON CM, OGT WITH NEPRO INFUSING AT 20CC/HR, PLACEMENT VERIFIED WITH AUSC OF SMALL AIR BOLUS, RESPONDS TO PAINFUL STIMULI, POSITIONED FOR COMFORT SUPPORTED WITH PILLOWS, WILL MONITOR.
--- NOTE | 2018-12-30 21:10 | NUR ---
NO VISITORS PRESENT AT THIS TIME, ORAL CARE AND SUCTIONING PROVIDED, VSS.
--- NOTE | 2018-12-30 23:15 | NUR ---
REASSESSMENT PER FLOWSHEET, NO ACUTE CHANGES NOTED AT THIS TIME. VSS, CONT POC.
[2018-12-31] VITALS (24 sets, daily range): BP systolic 93–132; BP diastolic 59–88
--- NOTE | 2018-12-31 00:34 | NUR ---
TF RESIDUALS 12CC, INCREASED RATE PER MD ORDER TO 30CC PER HR.
--- NOTE | 2018-12-31 03:15 | NUR ---
REASSESSMENT PER FLOWSHEET, NO ACUTE CHANGES NOTED, VSS.
[2018-12-31 03:22] LABS: BASOPHILS 0.1 % (0-2); EOSINOPHILS 1.6 % (0-7); HEMATOCRIT 27.5 % (42.0-54.0); HEMOGLOBIN 8.6 g/dL (13.5-17.5); IMMATURE GRANULOCYTES 0.3 % (0-5); LYMPHOCYTES 2.4 % (15-50); MCHC 31.3 g/dL (31.0-37.0); MEAN PLATELET VOLUME 8.9 fL (7.4-10.4); MONOCYTES 10.4 % (2-11); NEUTROPHILS 85.2 % (40-80); PLATELET COUNT 186 10x3/uL (130-400); RBC 3.07 10x6/uL (4.20-6.10); RDW 23.5 % (11.5-14.5); WBC 14.8 10x3/uL (4.8-10.8)
[2018-12-31 03:32] LABS: PROTIME 15.3 SECONDS (11.6-15.0)
[2018-12-31 03:38] LABS: ANION GAP 9.4 mmol/L (8-16); CALCIUM 8.6 mg/dL (8.5-10.1); CARBON DIOXIDE 31.5 mmol/L (21.0-32.0); CREATININE - SERUM 2.5 mg/dL (0.6-1.3); MAGNESIUM - SERUM 2.1 mg/dL (1.8-2.4); PHOSPHOROUS 4.2 mg/dL (2.5-4.9)
[2018-12-31 03:39] LABS: MCV 89.6 fL (80.0-100.0); POTASSIUM - SERUM 3.9 mmol/L (3.5-5.1)
[2018-12-31 03:41] LABS: INR 1.27 (0.85-1.17)
--- NOTE | 2018-12-31 05:15 | NUR ---
CHG BATH AND COMPLETE LINEN CHANGE DONE.
--- NOTE | 2018-12-31 07:57 | NUR ---
LYING IN BED ON VENT AT THIS TIME, PT NOT FOLLOWING COMMANDS BUT RESPONDS TO DISCOMFORT. VSS. ORAL CARE PROVIDED Q2H. TURNED Q2H. WILL CONTINUE PLAN OF CARE.
--- NOTE | 2018-12-31 08:01 | NUR ---
WILL COLLECT STOOL SPECIMEN WHEN PT HAS BOWEL MOVEMENT.
--- NOTE | 2018-12-31 09:06 | NUR ---
RT THORACENTESIS SITE NOTED DRESSING TO BE SATURATED WITH BRIGHT RED BLOOD THAT SATURATED THROUGH DRESSING AND ONTO GOWN. AREA NOTED TO BEGIN TO CLOT BUT STILL BLEEDING. DRESSING REINFORVED WITH 4X4 AND ABD PADS, AND PRESSURE TAPE PLACED. DR NORRIS PAGED TO NOTIFY OF THIS FOR FURTHER ORDERS. PLAVIX AND ASPIRIN HELD UNTIL FURTHER ORDERS FROM PHYSICIANS.
--- NOTE | 2018-12-31 09:52 | NUR ---
PER DR NORRIS, DRESSING CHANGE PROVIDED PER DR NORRSI ORDERS TO REMOVE OLD DRESSING AND PLACE NEW DRESSING IN Z-TRACK MOTION WITH 4X4S FOLDED AND PRESSURE DRESSING. DR NORRIS STATED HE WILL BE BY IN A LITTLE BIT TO PLACE SUITURES TO AREA TO HELP IT STOP BLEEDING. WILL CONTINUE TO OBSERVE.
--- NOTE | 2018-12-31 09:54 | NUR ---
ALSO PER DR NORRIS, HOLD ASPIRIN AND PLAVIX TODAY.
--- NOTE | 2018-12-31 11:45 | NUR ---
SUITURES PLACED AT BEDSIDE BY PHYSICIAN TO THORACENTESIS BLEEDING SITE. BLEEDING APPEARS TO HAVE STOPPED.
--- NOTE | 2018-12-31 15:29 | NUR ---
PER DR LOZANO START ELECTROLYTE PROTOCOL FOR MG OF 1.7.
--- NOTE | 2018-12-31 17:08 | NUR ---
NO ACUTE DISTRESS NOTED. NO CHANGE. VSS. PT TURNED Q2H. ORAL CARE PROVIDED Q2H. PT NOTED TO HAVE A LOOSE TOOTH TO BOTTOM ROW IN FRONT, DR NORRIS IS AWARE. NO ORDERS RECIEVED REGARDING THIS. WILL CONTINUE PLAN OF CARE.
--- NOTE | 2018-12-31 19:40 | NUR ---
REC'D PT ON VENT VIA 7.5ETT TAPED @ 25CM LIPLINE SEE FLOWSHEET FOR VENT SETTINGS, GENERALIZED EDEMA, PT AROUSES TO DEEP STIMULI BUT DOES NOT FOLLOW COMMANDS, RIGHT FA PIV WITH DIPRIVAN @ 60MCG/KG/MIN, LEFT FOREARM PIV SALINE LOCKED, LEFT UPPER ARM WITH NS @ 1O CC/HR AND DOBUTAMINE @ 10MCG/KG/MIN, OGT TAPED SECURELY TO ETT WITH NEPRO INFUSING @ 40CC/HR, NO RESIDUAL NOTED, ABD ROUND AND SEMISOFT, PENILE AND SCROTAL EDEMA NOTED, GENITALS SUPPORTED WITH PILLOW, GHOSH PATENT DRAINING YELLOW URINE, PPP, AIR OVERLAY MATTRESS IN USE, SR UP X 2, BILAT SOFT WRIST RESTRAINTS INTACT.
--- NOTE | 2018-12-31 21:00 | NUR ---
EVENING MEDS GIVEN, NO VISITORS IN AT THIS TIME, PT REPOSITIONED ONTO BACK FOR COMFORT, ORAL CARE PROVIDED
--- NOTE | 2018-12-31 23:00 | NUR ---
REASSESSMENT COMPLETED, NO CHANGES FROM PREVIOUS ASSESSMENT, VSS, WILL CONTINUE TO MONITOR.
[2019-01-01] VITALS (24 sets, daily range): BP systolic 95–135; BP diastolic 46–79
--- NOTE | 2019-01-01 01:30 | NUR ---
TF BAG CHANGED PER PROTOCOL, PT REPOSITIONED UP AND ONTO LEFT SIDE SUPPORTED WITH WEDGES, TOLERATED WELL, BILAT SOFT WRIST RESTRAINTS INTACT, BED IN LOW POSITION, VISIBLE TO NURSES STATION.
--- NOTE | 2019-01-01 03:00 | NUR ---
REASSESSMENT COMPLETED, THICK YELLOW SECRETIONS NOTED UPON SUCTIONING ETT, O2 SAT 96%, BP STABLE, WILL CONT TO MONITOR FOR CHANGES.
[2019-01-01 03:13] LABS: BASOPHILS 0 % (0-2); EOSINOPHILS 2.3 % (0-7); HEMATOCRIT 27.7 % (42.0-54.0); HEMOGLOBIN 8.5 g/dL (13.5-17.5); IMMATURE GRANULOCYTES 0.3 % (0-5); LYMPHOCYTES 1.9 % (15-50); MCH 28.1 pg (26.0-34.0); MCHC 30.7 g/dL (31.0-37.0); MEAN PLATELET VOLUME 8.6 fL (7.4-10.4); MONOCYTES 8.2 % (2-11); NEUTROPHILS 87.3 % (40-80); PLATELET COUNT 177 10x3/uL (130-400); RBC 3.02 10x6/uL (4.20-6.10); RDW 24.3 % (11.5-14.5); WBC 15.1 10x3/uL (4.8-10.8)
[2019-01-01 03:14] LABS: MCV 91.7 fL (80.0-100.0)
[2019-01-01 03:27] LABS: ANION GAP 7.4 mmol/L (8-16); CALCIUM 8.6 mg/dL (8.5-10.1); CARBON DIOXIDE 34.5 mmol/L (21.0-32.0); MAGNESIUM - SERUM 1.9 mg/dL (1.8-2.4); POTASSIUM - SERUM 3.9 mmol/L (3.5-5.1)
[2019-01-01 03:28] LABS: CREATININE - SERUM 1.7 mg/dL (0.6-1.3)
--- NOTE | 2019-01-01 05:20 | NUR ---
PT INCONTINENT OF LARGE LOOSE BROWN STOOL, PARTIAL BATH AND LINEN CHANGE PROVIDED, PT REPOSITIONED UP IN BED AND ONTO RIGHT SIDE SUPPORTED WITH WEDGES, TOLERATED WELL, SR UP X 2, VISIBLE TO NURSES STATION.
--- NOTE | 2019-01-01 07:42 | NUR ---
OGT TUBE FEEDING RESIDUALS NOTED AT 20ML. PLACEMENT VERIFIED VIA AUSCULTATION AND ASPIRATION.
--- NOTE | 2019-01-01 08:40 | NUR ---
LYING IN BED ON VENT AT THIS TIME. NO ACUTE DISTRESS NOTED. VSS. ORAL CARE AND REPOSITIONIG PROVIDED Q2H. NOTED THICK YELLOW SECRETIONS WITH SUCTIONING. PT RESPONDS TO DEEP STIMULATION, NOT CURRENTLY FOLLOWING COMMANDS. WILL CONTINUE PLAN OF CARE.
--- NOTE | 2019-01-01 10:00 | NUR ---
NO ACUTE DISTRESS NOTED. NO CHANGE. VSS. ORAL CARE PROVIDED Q2H AND REPOSITIONING PROVIDED Q2H. WILL CONTINUE PLAN OF CARE.
--- NOTE | 2019-01-01 12:46 | NUR ---
UP IN BED ON VENT. VSS. NO ACUTE DISTRESS NOTED. NO CHANGE. WILL CONTINUE PLAN OF CARE.
--- NOTE | 2019-01-01 14:28 | NUR ---
NO CHANGE. VSS. TURNED Q2H. TURNED Q2H, ORAL CARE PROVIDED Q2H. WILL CONTINUE PLAN OF CARE.
--- NOTE | 2019-01-01 16:57 | NUR ---
PT BROTHER CAME BY TO SEE PT. UPDATES PROVIDED. NO ACUTE DISTRESS NOTED. VSS. TURNED Q2H, ORAL CARE PROVIDED Q2H. WILL CONTINUE PLAN OF CARE.
--- NOTE | 2019-01-01 18:28 | NUR ---
NO ACUTE DISTRESS NOTED. VSS. TURNED Q2H. ORAL CARE PROVIDED Q2H. WILL CONTINUE PLAN OF CARE.
--- NOTE | 2019-01-01 19:15 | NUR ---
RECEIVED CARE OF PT, ASSESSMENT PER FLOWSHEET. PT INTUBATED AND SEDATED, 50% FIO2, PEEP OF 7. AROUSES TO DEEP STIMULI, DOES NOT FOLLOW COMMANDS, HR SR WITH OCC PVC'S NOTED, PPP, GHOSH CATH PATENT, POSITIONED FOR COMFORT, THICK SECRETIONS NOTED WITH SUCTIONING.
--- NOTE | 2019-01-01 21:05 | NUR ---
NO VISITORS PRESENT AT THIS TIME, VSS, CONT POC.
--- NOTE | 2019-01-01 23:01 | NUR ---
REASSESSMENT PER FLOWSHEET, NO ACUTE CHANGES NOTED, VSS, CONT POC.
[2019-01-02] VITALS (25 sets, daily range): BP systolic 98–140; BP diastolic 7–86
--- NOTE | 2019-01-02 00:05 | NUR ---
RECEIVED PATIENT CARE VSS PATIENT INTUBATED AND SEDATED CPOC
--- NOTE | 2019-01-02 03:00 | NUR ---
REASSESSMENT COMPLETED SEE FLOWSHEET
--- NOTE | 2019-01-02 04:15 | NUR ---
BLOODY DIARRHEA NOTED AT THIS TIME FULL CHG BATH AND LINEN CHANGED PERFORMED AT THIS TIME , GHOSH CARE COMPLETED CPOC
[2019-01-02 04:30] LABS: BASOPHILS 0 % (0-2); HEMOGLOBIN 8.4 g/dL (13.5-17.5); IMMATURE GRANULOCYTES 0.3 % (0-5); LYMPHOCYTES 2.5 % (15-50); MCH 27.5 pg (26.0-34.0); MCV 91.5 fL (80.0-100.0); MEAN PLATELET VOLUME 8.8 fL (7.4-10.4); NEUTROPHILS 85.2 % (40-80); PLATELET COUNT 173 10x3/uL (130-400); RBC 3.06 10x6/uL (4.20-6.10); RDW 23.9 % (11.5-14.5); WBC 17.7 10x3/uL (4.8-10.8)
[2019-01-02 04:49] LABS: INR 1.21 (0.85-1.17); PROTIME 14.7 SECONDS (11.6-15.0)
[2019-01-02 05:44] LABS: ANION GAP 10.7 mmol/L (8-16); CALCIUM 8.9 mg/dL (8.5-10.1); CREATININE - SERUM 1.5 mg/dL (0.6-1.3); MAGNESIUM - SERUM 1.9 mg/dL (1.8-2.4); PHOSPHOROUS 3.8 mg/dL (2.5-4.9); POTASSIUM - SERUM 3.7 mmol/L (3.5-5.1)
--- NOTE | 2019-01-02 07:00 | NUR ---
BEDSIDE REPORT RECEIVED. ASSESSMENT COMPLETED PER FLOWSHEET, SEE FLOWSHEET FOR INFORMATION. ORAL AND ENDOTRACHEAL INLINE SUCTIONED PT. COPIOUS AMOUNTS OF THICK WHITE/CLEAR SECRETIONS NOTED. VSS. NO NEEDS OR DISTRESS NOTED AT THIS TIME. WILL CONT TO MONITOR.
--- NOTE | 2019-01-02 09:00 | NUR ---
ORAL AND ENDOTRACHEAL INLINE SUCTION COMPLETED. COPIOUS AMOUNTS OF THICK WHITE SECRETIONS NOTED. AT BEDSIDE. NO NEEDS OR DISTRESS NOTED AT THIS TIME. VSS. WILL CONT TO MONITOR.
--- NOTE | 2019-01-02 09:14 | NUR ---
Nutrition follow-up: Pt remains intubated, sedated propofol @ 32.4 ml/hr Nepro @ goal rate of 40 ml/hr labs reviewed Wt:188# Bloody diarrhea per nursing Pt tolerating TF at this time RDN following.
--- NOTE | 2019-01-02 11:00 | NUR ---
TURNED PT FOR COMFORT. VSS. NO NEEDS OR DISTRESS NOTED AT THIS TIME. WILL CONT TO MONITOR.
--- NOTE | 2019-01-02 11:10 | EC ---
PATIENT:VIVIEN REYES SR DATE OF SERVICE: 12/27/18 SEX: M MEDICAL RECORD: [id number] DATE OF : [birth year] LOCATION:[facility] AGE OF PATIENT: 63 ADMISSION DATE: 12/27/18 REFERRING PHYSICIAN: INTERPRETING PHYSICIAN: SALBADOR GOMEZ MD ECHOCARDIOGRAM REPORT ECHO CHARGES 4 ECHO COMPLETE Date: 12/28/18 CLINICAL DIAGNOSIS: CHF ECHOCARDIOGRAPHIC MEASUREMENTS (adult normal given) AC root (d.<3.7cm) 3.1 cm LV Septum d (<1.2 cm> 1.6 cm Valve Excursion 2.2 cm LV Septum (systole) 2.0 cm Left Atria (s.<4.0cm> 4.9 cm LVPW d(<1.2cm) 1.6 cm RV (d.<2.3cm) 4.3 cm LVPW (sytole) 2.1 cm LV diastole(<5.6CM) 5.7 cm MV E-F(>70mm/sec) cm LV systole 3.9 cm LVOT Diameter 2.1 cm MV exc.(>10mm) cm Est.ejection fraction (50-75%) % DOPPLER: LVIT cm/sec A 57.0 cm/sec E 94.0 cm/sec LA cm/sec RVSP 29.0 mmHg LVOT 87.0 cm/sec AOP1/2T m/s Asc. Ao 145 cm/sec RVOT 52.0 cm/sec RA cm/sec PA 56.0 cm/sec AV Gradient Peak 8.4 mmHg AV Mean 3.8 mmHg AV Area 2.5 cm MV Gradient Peak 5.0 mmHg MV Mean 1.9 mmHg MV Area cm COMMENTS: Roof Plumber: 1 GOPAL CAPONEOE Director Of Mechanical Engineering: 1 Dr. Gomez TAPE# PACS Pericardial Effusion N DATE OF SERVICE: PROCEDURE: Echocardiogram. FINDINGS: 1. Left ventricular chamber size is dilated. Left ventricular systolic function is markedly reduced at 25% to 30%. 2. Left atrium is enlarged at 4.9 cm. Right atrium and right ventricular chamber sizes are severely dilated. 3. Valvular structures have normal structure and motion. ECHOCARDIOGRAM REPORT [id number] VIVIEN REYES SR 4. Doppler interrogation reveals moderate mitral regurgitation, severe tricuspid regurgitation, no other valvular insufficiency or stenosis. Pulmonary systolic pressure is estimated at 29 mmHg. 5. No evidence of pericardial effusion or left ventricular thrombus. TRANSINT:[id number] Voice Confirmation ID: [id number] DOCUMENT ID: [id number] SALBADOR GOMEZ MD at 1110 CC: [id number] DICTATION DATE: 12/29/18 1346 PAPER COLORER: 12/29/18 1406 ADM IN [facility] [address] [id number]
--- NOTE | 2019-01-02 11:10 | CN ---
PATIENT NAME:VIVIEN CHASE SR MEDICAL RECORD: [id number] : 57 LOCATION:[facility]2303 ADMIT DATE: 12/27/18 ACCOUNT: [id number] CONSULTING PHYSICIAN: SALBADOR SHEA MD REFERRING PHYSICIAN: KEELY LOZANO MD DATE OF CONSULTATION: 12/29/2018 DIAGNOSES: 1. Status post cardiopulmonary arrest. 2. Respiratory failure, on ventilation. 3. Non-Q-wave myocardial infarction. 4. Cardiomyopathy - congestive heart failure, chronic systolic dysfunction. 5. Smoking history. 6. Chronic obstructive pulmonary disease. 7. Coronary artery disease. 8. Status post multivessel percutaneous transluminal coronary angioplasty and stent. HISTORY OF PRESENT ILLNESS: Mr. Chase is well known to us. He has a past history of coronary artery disease, multiple previous stents, cardiomyopathy, ejection fraction this admission is in the 15% range with severe LV dilatation. He is status post cardiopulmonary arrest. He had a large right pleural effusion. He did undergo thoracentesis for this. He remains on the ventilator. He is on dobutamine. He remains on aspirin and Plavix as well as carvedilol. His systolic blood pressures are in the 100 range, heart rates in the 80s. PHYSICAL EXAMINATION: GENERAL APPEARANCE: Well nourished, well developed, appears stated age. Level of distress, comfortable. PSYCHIATRIC: Mental status, alert, normal affect. Orientation, oriented to time, place and person. EYES: Lids and conjunctiva, noninjected. No discharge, no pallor. ENT: Lips, teeth, gums, normal dentition. Oropharynx, no cyanosis, no pallor. NECK: Carotid arteries, bilateral normal upstroke, no bruits, no thrills. JUGULAR VEINS: No jugular venous pressure or distention. CERVICAL LYMPH NODES: Nontender, nonenlarged. THYROID: Not enlarged. Nontender. No nodules. LUNGS: Respiratory effort, unlabored. CHEST: Normal curvature. No thoracic deformity. No chest wall tenderness. Percussion, resonant. Auscultation, clear. No wheezes, no rales, no rhonchi. CARDIOVASCULAR: Precordial exam, nondisplaced. No heaves or pericardial thrills. Rate and rhythm, regular. Heart sounds, normal S1, normal S2. No S3, no gallop, no rub. Systolic murmur, not heard. Diastolic murmur, not heard. EXTREMITIES: No cyanosis, no edema. Peripheral pulses, full and equal in all extremities, except as noted. No bruits appreciated. ABDOMEN: Soft, nondistended. Normal aorta. No bruit. Nontender. No masses. Liver, nontender, no hepatomegaly. Spleen, nontender, no splenomegaly. MUSCULOSKELETAL: No joint tenderness. No joint swelling. No erythema. NEUROLOGICAL: Normal gait, normal strength, normal tone. SKIN: Warm and dry. OVERALL IMPRESSION: Cardiopulmonary arrest, respiratory failure. At this time, would continue the inotropic therapy with dobutamine. He is also as well on Bumex for diuresis. Continue the aspirin, Plavix and carvedilol. No CONSULT REPORT [id number] VIVIEN CHASE SR other cardiac workup or treatment is necessary. TRANSINT:[id number] Voice Confirmation ID: [id number] DOCUMENT ID: [id number] SALBADOR SHEA MD at 1110 CC: [id number] DICTATION DATE: 12/29/18 1416 CHAIR AND COUCH MAKER: 12/29/18 2234 ADM IN [facility] [address] [id number]
--- NOTE | 2019-01-02 13:00 | NUR ---
ORAL AND ENDOTRACHEAL INLINE SUCTIONED PT. COPIOUS AMOUNTS OF THICK FROTHY WHITE SECRETIONS NOTED. SUCTIONED MUTIPLE TIMES, AIRWAY NOW CLEAR. VSS. WILL CONT TO MONITOR.
--- NOTE | 2019-01-02 15:00 | NUR ---
TURNED PT FOR COMFORT. 4 LIQUID BM NOTED. BROWN IN COLOR. CHANGED DRESSING ON BUTTOCK. VSS, NO NEEDS OR DISTRESS NOTED AT THIS TIME. WILL CONT TO MONITOR.
--- NOTE | 2019-01-02 17:00 | NUR ---
COMPLETE LINEN CHANGE. 1700 MEDICATIONS GIVEN. LIQUID BM NOTED. VSS. NO NEEDS OR DISTRESS NOTED AT THIS TIME. WILL CONT TO MONITOR.
[2019-01-03] VITALS (46 sets, daily range): BP systolic 84–144; BP diastolic 53–82
[2019-01-03 03:58] LABS: BASOPHILS 0.1 % (0-2); EOSINOPHILS 5.3 % (0-7); HEMATOCRIT 28.7 % (42.0-54.0); HEMOGLOBIN 8.6 g/dL (13.5-17.5); IMMATURE GRANULOCYTES 0.3 % (0-5); LYMPHOCYTES 5.3 % (15-50); MCH 27.6 pg (26.0-34.0); MEAN PLATELET VOLUME 8.9 fL (7.4-10.4); MONOCYTES 7.4 % (2-11); NEUTROPHILS 81.6 % (40-80); PLATELET COUNT 176 10x3/uL (130-400); RBC 3.12 10x6/uL (4.20-6.10); RDW 23.6 % (11.5-14.5); WBC 14.3 10x3/uL (4.8-10.8)
[2019-01-03 04:25] LABS: APTT 36.5 SECONDS (22.8-39.4); INR 1.19 (0.85-1.17); PROTIME 14.6 SECONDS (11.6-15.0)
[2019-01-03 04:26] LABS: ANION GAP 7.5 mmol/L (8-16); CARBON DIOXIDE 36.1 mmol/L (21.0-32.0); CREATININE - SERUM 1.4 mg/dL (0.6-1.3); POTASSIUM - SERUM 3.6 mmol/L (3.5-5.1)
--- NOTE | 2019-01-03 07:00 | NUR ---
BEDSIDE REPORT RECEIVED. ASSESSMENT COMPLETED PER FLOWSHEET, SEE FLOWSHEET FOR INFORMATION. WAITNG ON IR TO TAKE PT TO SURGERY FOR RIGHT CHEST TUBE PLACEMENT. VSS. WILL CONT TO MONITOR.
--- NOTE | 2019-01-03 08:07 | NUR ---
STAFF TAKING PT TO IR FOR RIGHT CHEST TUBE PLACEMENT.
--- NOTE | 2019-01-03 08:55 | NUR ---
PT ARRIVED BACK TO ROOM. RIGHT LATERAL CHEST TUBE IN PLACE, PATENT AND TO WALL SUCTION. 1650ML OF FLUID REMOVED FROM RIGHT LUNG IN SURGERY. 80ML OF SEROSANGINOUS FLUID NOTED IN CHEST TUBE RESERVOIR. DRESSING CDI. 10 URDU CHEST TUBE. NO AIR LEAK NOTED. VSS. NO NEEDS OR DISTRESS NOTED AT THIS TIME. WILL CONT TO MONITOR.
--- NOTE | 2019-01-03 09:00 | NUR ---
PT RESTING IN BED WITH EYES CLOSED. NO NEEDS OR DISTRESS NOTED AT THIS TIME. VSS. WILL CONT TO MONITOR.
[2019-01-03 10:10] LABS: HEPATITIS C ANTIBODY 0.1 S/CO RAT (0.0-0.9)
--- NOTE | 2019-01-03 11:00 | NUR ---
COMPLETE LINEN CHANGE. LIQUID BM NOTED. VSS. NO NEEDS OR DISTRESS NOTED AT THIS TIME. VSS. WILL CONT TO MONITOR.
[2019-01-03 11:24] LABS: PROTEIN - BODY FLUID 3.8 G/DL
--- NOTE | 2019-01-03 12:06 | NUR ---
TURNED PT PER COMFORT. ORAL CARE GIVEN, ORAL AND ENDDOTRACHEAL INLINE SUCTION PRODUCING COPIOUS AMOUNTS OF THICK WHITE SECRETIONS. VSS. NO NEEDS OR DISTRESS NOTED AT THIS TIME. WILL CONT TO MONITOR.
--- NOTE | 2019-01-03 13:00 | NUR ---
PT RESTING IN BED WITH EYES CLOSED. VSS. WILL CONT TO MONITOR.
--- NOTE | 2019-01-03 13:00 | NUR ---
RE-INTUBATION SUCCESSFUL. CHEST XRAY ORDERED FOR PLACEMENT. VSS. WILL CONT TO MONITOR.
--- NOTE | 2019-01-03 14:00 | NUR ---
CALLED, PUT ORDER IN FOR RE-INTUBATION OF PT. PT HAS THICK FROTHY WHITE SECRETIONS COMING FROM MOUTH, ALONG WITH GURGLING BREATH SOUNDS HEARD WITHOUT AUSCULATION. CONSULTED FOR RE-INTUBATION. VSS. WILL CONT TO MONITOR.
--- NOTE | 2019-01-03 14:55 | NUR ---
AT BEDSIDE. WILL CONT TO MONITOR.
--- NOTE | 2019-01-03 15:00 | NUR ---
RE-INTUBATION SUCCESSFUL. CHEST XRAY ORDERED FOR PLACEMENT. VSS. NO NEEDS OR DISTRESS AT THIS TIME. WILL CONT TO MONITOR.
--- NOTE | 2019-01-03 15:25 | NUR ---
ET TUBE CHANGED OUT DUE TO BLOWN CUFF. CHANGED SIZE TO 8.0
--- NOTE | 2019-01-03 17:00 | NUR ---
PT IN BED RESTING WITH EYES CLOSED. I&O COMPLETED. VSS. WILL CONT TO MONITOR.
--- NOTE | 2019-01-03 19:00 | NUR ---
PT REPORT RECEIVED FROM DAY SHIFT NURSE. CURRENTLY VENTILATED. VSS. SHIFT ASSESSMENT COMPLETED. WILL CONTINUE TO MONITOR
--- NOTE | 2019-01-03 21:00 | NUR ---
PT HAD BM. CLEANED UP PT AND CHANGED LINEN. PT TOLERATED WELL. WILL CONTINUE TO MONITOR
--- NOTE | 2019-01-03 23:00 | NUR ---
PT RESTING IN BED. VSS. NO SIGNS OF DISTRESS NOTED AT THIS TIME. ORAL CARE PROVIDED. WILL CONTINUE TO MONITOR
[2019-01-04] VITALS (73 sets, daily range): BP systolic 61–166; BP diastolic 46–85
--- NOTE | 2019-01-04 01:03 | NUR ---
PT RESTING IN BED. NO SIGNS OF DISTRESS NOTED. VSS. ORAL CARE PROVIDED. WILL CONTINUE TO MONITOR
--- NOTE | 2019-01-04 03:00 | NUR ---
PT RESTING IN BED. VSS. REASSESSMENT COMPLETED. NO VISIBLE SIGNS OF DISTRESS NOTED. WILL CONTINUE TO MONITOR
--- NOTE | 2019-01-04 05:00 | NUR ---
PT RESTING IN BED. CHG BATH GIVEN. TOLERATED WELL. VSS. WILL CONTINUE TO MONITOR
--- NOTE | 2019-01-04 07:00 | NUR ---
BEDSIDE REPORT RECEIVED. ASSESSMENT COMPLETED PER FLOWSHEET, SEE FLOWSHEET FOR INFORMATION. VSS. NO NEEDS OR DISTRESS NOTED AT THIS TIME. WILL CONT TO MONITOR.
--- NOTE | 2019-01-04 09:00 | NUR ---
AT BEDSIDE. ORDERS FOR EXTUBATION AND PROPOFOL WEANING. VSS. WILL CONT TO MONITOR.
--- NOTE | 2019-01-04 09:31 | NUR ---
Nutrition follow-up Intubated, sedated CT placed 01/03 TF on hold due to frothy white liquid in mouth labs reivewe Watery diarrhea; pt on lactulose Wt: 167# RDN following.
--- NOTE | 2019-01-04 11:00 | NUR ---
PT OFF OF PROPOFOL SUCCESSFULLY. AWATING EXTUBATION. VSS. WILL CONT TO MONITOR.
--- NOTE | 2019-01-04 11:40 | NUR ---
EXTUBATION SUCCESSFUL. PT NOW USING NC AT 3L. NO NEEDS OR DISTRESS NOTED AT THIS TIME. VSS. WILL CONT TO MONITOR.
--- NOTE | 2019-01-04 12:35 | NUR ---
WHEN ASKED "DO YOU KNOW WHERE YOU ARE?" PT REPLIES WITH "I'M A MAN. I WANT A ". PT IS UNINTELLIGIBLE UNLESS LISTENING VERY CAREFULLY. WILL CONT TO MONITOR.
--- NOTE | 2019-01-04 13:00 | NUR ---
PT IN BED RESTING. PT HAS HAD 2 PRODUCTIVE COUGHS, YELLOW SECRETIONS NOTED. VSS. WILL CONT TO MONITOR.
--- NOTE | 2019-01-04 15:00 | NUR ---
REPOSITIONED FOR COMFORT, VSS, CALL LIGHT IN REACH
--- NOTE | 2019-01-04 17:15 | NUR ---
FAMILY AT BEDSIDE, UPDATE GIVEN
--- NOTE | 2019-01-04 19:00 | NUR ---
PT REPORT RECEIVED FROM DAY SHIFT NURSE. NO SIGNS OF DISTRESS NOTED. VSS. WILL CONTINUE TO MONITOR
--- NOTE | 2019-01-04 21:00 | NUR ---
PT RESTING IN BED. TURNED AND REPOSITONED. TOLERATED WELL. VSS. WILL CONTINUE TO MONITOR
--- NOTE | 2019-01-04 23:00 | NUR ---
PT RESTING IN BED. REASSESSMENT COMPLETED. PT TOLERATED WELL. VSS. WILL CONTINUE TO MONITOR
[2019-01-05] VITALS (65 sets, daily range): BP systolic 82–154; BP diastolic 44–102
--- NOTE | 2019-01-05 01:00 | NUR ---
PT RESTING IN BED. ORAL CARE PROVIDED. PT REFUSED TO TURN AND WANTED TO STAY ON HIS BACK. VSS. WILL CONTINUE TO MONITOR
--- NOTE | 2019-01-05 03:00 | NUR ---
PT RESTING IN BED. REASSESSMENT COMPLETED. PT TOLERATED WELL. VSS. WILL CONTINUE TO MONITOR
[2019-01-05 04:19] LABS: BASOPHILS 0.1 % (0-2); EOSINOPHILS 0.4 % (0-7); HEMATOCRIT 27.8 % (42.0-54.0); HEMOGLOBIN 8.3 g/dL (13.5-17.5); IMMATURE GRANULOCYTES 0.4 % (0-5); MCH 27.9 pg (26.0-34.0); MCHC 29.9 g/dL (31.0-37.0); MCV 93.6 fL (80.0-100.0); MEAN PLATELET VOLUME 9.4 fL (7.4-10.4); MONOCYTES 8.7 % (2-11); NEUTROPHILS 82.4 % (40-80); RBC 2.97 10x6/uL (4.20-6.10); RDW 22.2 % (11.5-14.5); WBC 13.8 10x3/uL (4.8-10.8)
[2019-01-05 04:24] LABS: PLATELET COUNT 228 10x3/uL (130-400)
[2019-01-05 04:29] LABS: ALBUMIN 1.9 g/dL (3.4-5.0); ANION GAP 6.8 mmol/L (8-16); BILIRUBIN - TOTAL 1.81 mg/dL (0.2-1.3); CALCIUM 8.6 mg/dL (8.5-10.1); CARBON DIOXIDE 35.5 mmol/L (21.0-32.0); CREATININE - SERUM 1.1 mg/dL (0.6-1.3); POTASSIUM - SERUM 3.3 mmol/L (3.5-5.1); PROTEIN - SERUM 6.4 g/dL (6.4-8.2)
--- NOTE | 2019-01-05 05:00 | NUR ---
PT RESTING IN BED. NO SIGNS OF DISTRESS NOTED AT THIS TIME. VSS. WILL CONTINUE TO MONITOR
--- NOTE | 2019-01-05 12:05 | NUR ---
Rehab Note- Acute Inpatient Rehab prescreen order received. The patient has [facility] insurance and will require a PreAuth prior to an acute inpatient rehab stay. He has a pending PT & OT Eval that will be needed for the PreAuth process. Thank you for this referral! Keri Velasco RN Clinical Liaison, [facility] Rehab
--- NOTE | 2019-01-05 12:30 | NUR ---
PT ASSISTED WITH LUNCH TRAY. AT A FEW BITES OF PUREED TURKEY, DRESSING, POTATOES/ ATE ALMOST ALL OF CHOCOLATE PUDDING. DRANK 2/3 OF THICKENED WATER AND A FEW SIPS OF TEA. IS ABLE TO CLEAR WITH NO DIFFICULTY.
--- NOTE | 2019-01-05 19:00 | NUR ---
PT REPORT RECEIVED FROM DAY SHIFT NURSE. PT HAD BM AND WAS CLEANED UP. NEW MATTRESS PUT ON BED. PT TOLERATED WELL. VSS. WILL CONTINUE TO MONITOR
--- NOTE | 2019-01-05 20:14 | NUR ---
BROTHER CAME BY TO SEE PT. UPDATE PROVIDED. HE ASKED THAT OTHER BROTHER JEFF REYES BE CONTACTED WHILE HE IS OUT OF TOWN NEXT WEEK. [phone]
--- NOTE | 2019-01-05 21:00 | NUR ---
PT RESTING IN BED. ATE A PUDDING CUP TOLERATED WELL. VSS. NO SIGNS OF DISTRESS NOTED. WILL CONTINUE TO MONITOR
--- NOTE | 2019-01-05 23:00 | NUR ---
PT RESTING IN BED. FED SOME PUDDING AND GAVE HIM SOME THICKENED WATER TO DRINK. PT TOLERATED WELL. NO CHOKING OR COUGHING. VSS. WILL CONTINUE TO MONITOR
[2019-01-06] VITALS (23 sets, daily range): BP systolic 90–130; BP diastolic 47–96
--- NOTE | 2019-01-06 01:00 | NUR ---
PT RESTING IN BED. EASILY AROUSABLE. PT IN AFIB. STAT POTASSIUM LAB DRAWN. WILL CONTINUE TO MONITOR
--- NOTE | 2019-01-06 01:15 | NUR ---
DR SHEA CONTACTED REGARDING NEW ONSET AFIB. ORDERS RECEIVED WILL CONTINUE TO MONITOR
--- NOTE | 2019-01-06 03:00 | NUR ---
PT RESTING IN BED. VSS. NO COMPLAINTS NOTED AT THIS TIME. REASSESSMENT COMPLETED. WILL CONTINUE TO MONITOR
[2019-01-06 03:48] LABS: BASOPHILS 0.2 % (0-2); EOSINOPHILS 1.1 % (0-7); HEMATOCRIT 30.1 % (42.0-54.0); IMMATURE GRANULOCYTES 0.7 % (0-5); LYMPHOCYTES 8.9 % (15-50); MCH 28.1 pg (26.0-34.0); MCHC 29.9 g/dL (31.0-37.0); MCV 94.1 fL (80.0-100.0); MEAN PLATELET VOLUME 9.4 fL (7.4-10.4); NEUTROPHILS 77.1 % (40-80); PLATELET COUNT 260 10x3/uL (130-400); RDW 21.7 % (11.5-14.5); WBC 12.3 10x3/uL (4.8-10.8)
[2019-01-06 04:24] LABS: ALBUMIN 1.9 g/dL (3.4-5.0); BILIRUBIN - TOTAL 1.24 mg/dL (0.2-1.3); CALCIUM 8.7 mg/dL (8.5-10.1); CREATININE - SERUM 1.4 mg/dL (0.6-1.3)
--- NOTE | 2019-01-06 05:00 | NUR ---
PT RESTING IN BED. ATE SOME JELLO. TOLERATED WELL. VSS. WILL CONTINUE TO MONITOR.
--- NOTE | 2019-01-06 07:51 | NUR ---
Nutrition follow-up: Diet upgraded to puree with nectar thick liquids PO intake ~25% of meals Labs reviewed WT: 206#? +BM RDN following.
--- NOTE | 2019-01-06 11:22 | NUR ---
CHAVA FROM [facility] CAME BY TO CHECK CHEST TUBE. FLUSHED LINE. OK FOR PT TO BE GETTING UP TO CHAIR, JUST WATCH LINES
--- NOTE | 2019-01-06 12:53 | NUR ---
PT SITTING UP IN CHAIR AT BEDSIDE WITH LUNCH TRAY.
--- NOTE | 2019-01-06 18:00 | NUR ---
PT ASSISTED FROM CHAIR TO BED. HAD BM. PT CLEANED UP AND NEW MEPILEX DRESSING APPLIED. MADE SURE CHEST TUBE NOT KINKED WHEN PT PLACED IN BED. ALL NEW LINENS PROVIDED. CALL LIGHT IN REACH
--- NOTE | 2019-01-06 18:46 | MORECARE ---
CASE MANAGEMENT DISCHARGE SUMMARY PATIENT: VIVIEN REYES UNIT: [id number] ADM DATE: 12/27/18 AGE: 63 : 57 SEX: M ROOM/BED: D.2303 AUTHOR: NOHEMI,DOC PHYSICIAN: REFERRING PHYSICIAN: KEELY LOZANO MD DATE OF SERVICE: 01/06/19 Discharge Plan Patient Name: VIVIEN REYES Facility: [facility]:[place] : 1955 Planned Disposition: Anticipated Discharge Date: Discharge Date: Expected LOS: Initial Reviewer: [email or web address] Initial Review Date: 12/28/2018 Generated: 01/06/19 7:45 pm Comments DCP- Discharge Planning Updated by [email or web address]: Jeannie Mccray on 01/06/19 5:[address] planning to go to inpatient rehab once more medically stable and chest tube is out. Rehab pre-screen ordered. CM will continue to follow and assist as needed with discharge planning / needs DCP- Discharge Planning Updated by [email or web address]: Jeannie Mccray on 12/28/18 1:[address] Patient Name: VIVIEN REYES Admission Status: Elective Accout number: [id number] Admission Date: 12-27-2018 : 1955 Admission Diagnosis: Attending: KEELY LOZANO Current LOS: 1 Anticipated DC Date: Planned Disposition: Primary Insurance: [employer] Discharge Planning Comments: CM met with patient at bedside after explaining CM role and obtaining verbal consent. Patient lives at home with his friend where he is independent with his care and plans to return there upon discharge. Patient feels this would be a safe discharge. CM discussed availability / needs of home health and medical equipment. Patient has home / portable 02 with [facility]. Patient denies any discharge needs at this time. Patient states he will have his family drive him home upon discharge. CM will continue to follow and assist as needed with discharge planning / needs. Shirt Trimmer: Jeannie Mccray DCP- Discharge Planning Updated by [id number]: Tala Rodriguez on 12/28/18 6:[address] CM attempted to do initial admission assessment but the patient is not able to stay awake to answer questions. His speech is not clear and he is very hard to understand at this time. CM spoke to Charge nurse who reported they medicated him with Benadryl and they are having a hard time understanding him as well. Cm will try again at a later time when he is able to complete assessment. Riddhi Verdin RN, [facility] DCPIA - Discharge Planning Initial Assessment Updated by [email or web address]: Jeannie Mccray on 12/28/18 1:54 pm * Is the patient Alert and Oriented? No * How many steps to enter\exit or inside your home? * PCP RAFAEL * Pharmacy [facility] * Preadmission Environment Home with Family * ADLs Independent * Other Equipment HOME & PORTABLE 02 * List name and contact numbers for known caregivers / representatives who currently or will assist patient after discharge: ALESIA FLORIAN - FRIEND - [phone] VIVIEN REYES - BROTHER - [phone] * Verbal permission to speak to the caregivers and representatives has been obtained from the patient. N/A * Community resources currently utilized None * Additional services required to return to the preadmission environment? No * Can the patient safely return to the preadmission environment? Yes * Has this patient been hospitalized within the prior 30 days at any hospital? Yes Last DP export: 12/28/18 1:13 p Patient Name: VIVIEN REYES Page [phone] at 1846 All edits/amendments must be made on the electronic document DICTATION DATE: 01/06/191844 BRIGADIER: LEIGH 01/06/191844 RPT#: [id number] DC DATE: STATUS: ADM IN [facility] [address] [place] [address] END OF REPORT
--- NOTE | 2019-01-06 19:15 | NUR ---
RECEIVED PATIENT CARE, VSS CPOC
--- NOTE | 2019-01-06 20:15 | NUR ---
SHIFT ASSESSMENT COMPLETED, SEE FLOWSHEET
--- NOTE | 2019-01-06 21:15 | NUR ---
PATIENT RECEIVED SPRITE PER REQUEST - REQUESTING 5 OR 6 DOLLARS FOR SOME FOOD, WANTS A CHILI DOG, PT EDUCATION PROVIDED REGARDING PUREE THICK FOODS AT THIS TIME
--- NOTE | 2019-01-06 22:15 | NUR ---
PT RECEIVED HS MEDICATIONS, DENIES NEEDS AT THIS TIME
--- NOTE | 2019-01-06 23:15 | NUR ---
REASSESSMENT COMPLETED SEE FLOWSHEET
[2019-01-07] VITALS (16 sets, daily range): BP systolic 85–170; BP diastolic 38–96
--- NOTE | 2019-01-07 02:45 | NUR ---
PATIENT HAD LARGE BM - FULL LINEN CHANGE AND CHG BATH PERFORMED, RESPOSITIONED FOR COMFORT, COMPLAINING ABOUT TAPE ON CHEST TUBE
--- NOTE | 2019-01-07 04:34 | NUR ---
PATIENT RESTING COMFORTABLY ON BIPAP VSS CPOC
[2019-01-07 05:11] LABS: HEMATOCRIT 27.9 % (42.0-54.0); HEMOGLOBIN 8.5 g/dL (13.5-17.5); MCH 28.2 pg (26.0-34.0); MCHC 30.5 g/dL (31.0-37.0); MCV 92.7 fL (80.0-100.0); MEAN PLATELET VOLUME 9.3 fL (7.4-10.4); PLATELET COUNT 270 10x3/uL (130-400); RBC 3.01 10x6/uL (4.20-6.10); RDW 21.2 % (11.5-14.5); WBC 10.8 10x3/uL (4.8-10.8)
[2019-01-07 05:12] LABS: ALBUMIN 2.1 g/dL (3.4-5.0); ANION GAP 9.3 mmol/L (8-16); BILIRUBIN - TOTAL 1.06 mg/dL (0.2-1.3); CALCIUM 8.7 mg/dL (8.5-10.1); CARBON DIOXIDE 31.6 mmol/L (21.0-32.0); CREATININE - SERUM 1.6 mg/dL (0.6-1.3); POTASSIUM - SERUM 3.9 mmol/L (3.5-5.1); PROTEIN - SERUM 7.2 g/dL (6.4-8.2)
--- NOTE | 2019-01-07 05:26 | NUR ---
PATIENT REQUESTING DRINK, STILL ON BIPAP WILL WAIT UNTIL HE SWITCHES TO NASAL CANNULA
[2019-01-07 05:43] LABS: EOSINOPHILS 2 % (0-7); LYMPHOCYTES 18 % (15-50); MONOCYTES 6 % (2-11); NEUTROPHILS 70 % (40-80); PLATELET ESTIMATE NORMAL
--- NOTE | 2019-01-07 07:15 | NUR ---
REPORT RECIEVED FROM PENELOPE CUELLAR. PATIENT IS CONFUSED AT THIS TIME. HOB 45. PAITENT IS AWAKE. WATCHING TV. DENIES PAIN AND NEEDS AT THIS TIME. PATIENT DOES STATES HE NEEDS TO GO HOME. EDUCATED AND REORIENTED TO TIME PLACE AND SITUATION. WATER SEAL CHEST TUBE. DRAINING TO GRAVITY. PATIENT TURNED AND REPLACED MEPILEX ON COCCYX. PULSES PALP. 2 L NC. NO ACUTE DISTRESS. WILL CONTINUE TO MONITOR
--- NOTE | 2019-01-07 09:00 | NUR ---
BREAKFAST TRAY PROVIDED. BEDSIDE TABLE. PHONE AT BEDSIDE. HOB 60. PATIENT IS DISORIENTED. CHEST TUBE TUBING DEPENDENT. NO DISTRESS. DENIES NEEDS AT THIS TIME. VSS. WILL CONTINUE TO MONITOR.
--- NOTE | 2019-01-07 09:45 | NUR ---
PATIENT HAD BM. COMPLETE LINEN CHANGE AND BATH DONE AT THIS TIME.
--- NOTE | 2019-01-07 10:34 | NUR ---
PT AT BEDSIDE. PATIENT AMBULATED UP AND DOWN ICU HALLWAY WITH WALKER. NO DISTRESS. PATIENT TOLERATED VERY WELL. SITTING ON CHAIR NOW. BEDSIDE TABLE IN FRONT. ALL BELONGINGS WITHINR REACH. WILL CONTINUE TO MONITOR.
--- NOTE | 2019-01-07 13:18 | NUR ---
PATIENT AMBULATED TO BED. NO ACUTE DISTRESS. PATIENT IS NOW SLEEPING. NEW LINEN CHANGE DONE AT TIME OF TRANSFER. CONFUSED. AWARE OF POSSIBLE FLOOR TRANSFER WILL CONTINUE TO MONITOR PATIENT.
--- NOTE | 2019-01-07 13:57 | NUR ---
report given to vipin nino
--- NOTE | 2019-01-07 14:39 | NUR ---
PT CARE ASSUMED. PT SITTING UP IN CHAIR. NO SIGNS OF DISTRESS.
--- NOTE | 2019-01-07 23:00 | NUR ---
ASSISTED PT INTO BATHROOM TO HAVE BM. DRESSING TO BUTTOCKS SOILED. REMOVED AND APPLIED NEW MEPILEX DRESSING. RIGHT CHEST TUBE DRESSING COMING OFF. REINFORCED DRESSING. PT IS CONFUSED PLACE AND TIME. HELPED BACK TO BED. HOB AT 30 DEGREES AND BED ALARM ON. WILL CONTINUE TO MONITOR.
[2019-01-08 04:45] VITALS: BP 96/66
[2019-01-08 06:36] LABS: ALBUMIN 2.4 g/dL (3.4-5.0); ANION GAP 7.9 mmol/L (8-16); BILIRUBIN - TOTAL 0.91 mg/dL (0.2-1.3); CALCIUM 8.6 mg/dL (8.5-10.1); CARBON DIOXIDE 33.2 mmol/L (21.0-32.0); CREATININE - SERUM 1.8 mg/dL (0.6-1.3); POTASSIUM - SERUM 4.1 mmol/L (3.5-5.1); PROTEIN - SERUM 6.8 g/dL (6.4-8.2)
[2019-01-08 06:44] LABS: HEMOGLOBIN 8.3 g/dL (13.5-17.5); MCH 27.7 pg (26.0-34.0); MCHC 29.6 g/dL (31.0-37.0); MCV 93.3 fL (80.0-100.0); MEAN PLATELET VOLUME 9.4 fL (7.4-10.4); PLATELET COUNT 281 10x3/uL (130-400); WBC 10.3 10x3/uL (4.8-10.8)
[2019-01-08 08:25] VITALS: BP 106/61
[2019-01-08 08:25] LABS: BASOPHILS 2 % (0-2); EOSINOPHILS 3 % (0-7); HYPOCHROMASIA 2+; LYMPHOCYTES 15 % (15-50); MONOCYTES 5 % (2-11); NEUTROPHILS 75 % (40-80); PLATELET ESTIMATE NORMAL
--- NOTE | 2019-01-08 11:07 | NUR ---
PT CONFUSED. CRACKLES TO ALL HOUSER, 3L O2 PER NC. CHEST TUBE TO RIGHT SIDE TO WATER SEAL. IV TO LEFT FOREARM AND LEFT UPPER ARM, BOTH SALINE LOCKED. PT REPORTING NO PAIN AT THIS TIME. WOUND TO BUTTOCKS, MEPILEX IN PLACE. BED LOW, CALL LIGHT IN REACH. NO OTHER NEEDS AT THIS TIME.
[2019-01-08 12:38] VITALS: BP 99/60
[2019-01-08 16:09] VITALS: BP 94/53
[2019-01-08 21:09] VITALS: BP 94/61
--- NOTE | 2019-01-08 22:30 | NUR ---
PT C/O LEFT UPPER ARM IV "HURTING" - REMOVED IV CATHETER INTACT. LEFT FOREARM IV STILL INTACT. NO OTHER NEEDS. WILL CONTINUE TO MONITOR.
[2019-01-09 00:53] VITALS: BP 95/65
[2019-01-09 04:47] VITALS: BP 99/59
[2019-01-09 05:50] LABS: ALBUMIN 2.3 g/dL (3.4-5.0); ANION GAP 11.7 mmol/L (8-16); BILIRUBIN - TOTAL 1.05 mg/dL (0.2-1.3); CALCIUM 8.5 mg/dL (8.5-10.1); CARBON DIOXIDE 31.6 mmol/L (21.0-32.0); CREATININE - SERUM 1.9 mg/dL (0.6-1.3); POTASSIUM - SERUM 4.3 mmol/L (3.5-5.1); PROTEIN - SERUM 6.8 g/dL (6.4-8.2)
[2019-01-09 06:06] LABS: BASOPHILS 0.5 % (0-2); EOSINOPHILS 21.9 % (0-7); HEMATOCRIT 26.8 % (42.0-54.0); HEMOGLOBIN 8.1 g/dL (13.5-17.5); IMMATURE GRANULOCYTES 0.3 % (0-5); LYMPHOCYTES 10.6 % (15-50); MCH 27.8 pg (26.0-34.0); MCHC 30.2 g/dL (31.0-37.0); MCV 92.1 fL (80.0-100.0); MEAN PLATELET VOLUME 9.5 fL (7.4-10.4); MONOCYTES 11.5 % (2-11); NEUTROPHILS 55.2 % (40-80); PLATELET COUNT 273 10x3/uL (130-400); RBC 2.91 10x6/uL (4.20-6.10); RDW 20.8 % (11.5-14.5); WBC 9.2 10x3/uL (4.8-10.8)
--- NOTE | 2019-01-09 07:39 | NUR ---
PT RESTING IN BED. NO SIGNS OF DISTRESS. IV TO LEFT FORARM PATENT NO REDNESS OR TENDERNESS. HAS CHEST TUBE TO RIGHT AX. HAS GHOSH NO KINKS PATENT. ON FIRST STEP OVERLAY. ON 2.5L NC. DENIES ANY FURTHER NEED AT THIS TIME. CALL LIGHT IN REACH. BED LOW POSITION. NO FAMILY AT BEDSIDE AT THIS TIME.
[2019-01-09 08:01] VITALS: BP 97/57
--- NOTE | 2019-01-09 11:44 | NUR ---
OT NOTE: PT DOING WELL; BED MOB WITH MIN ASSIST/CGA; SITTING BALANCE ON EOB IS GOOD; UE AROM EXS WHILE ON EOB; AMB GREATER THAN 150 FT WITH USE OF WALKER, CATHETER, DRAINAGE TUBE, AND SEVERAL REST BREAKS. ABLE TO WASH FACE AND HANDS WITH CLOTH AND SET UP; PT VERY FATIGUED FOLLOWING THERAPY. RUBENS KAY, OTR/L
[2019-01-09 13:21] VITALS: BP 86/53
--- NOTE | 2019-01-09 13:47 | NUR ---
I have reviewed this patient and I concur with the Shift Assessment completed by the Licensed Practical Nurse today this shift.
--- NOTE | 2019-01-09 15:59 | NUR ---
Rehab Note- Clinicals faxed to [facility] for review for possible inpatient acute rehab stay. Will continue to follow and await determination at this time. Thank you for this referral! Keri Velasco RN Clinical Liaison, [facility] Rehab
[2019-01-09 16:48] VITALS: BP 106/55
--- NOTE | 2019-01-09 20:33 | NUR ---
OT NOTE: PT COMPLETED UE AROM AXS. PT COMPLETED ADL MOB WITH SBA/CGA. PT COMPLETED GROOMING TASKS WITH SET UP. THANK YOU,IRIS PENALOZA
--- NOTE | 2019-01-09 21:04 | NUR ---
REC'S. CHGE OF SHIFT WALKING ROUNDS. IN BED AAO X3 AT PRESENT TIME.CHEST TUBE TO RIGHT LATERAL CHEST 02 2L NC DENIES SOB NO RESP. DIFFICULTY OBSERVED AT PRESENT TIME GHOSH PATENT AND DRAINING DK STRAW YELLOW URINE. WILL CONTINUE TO MONITOR FOR ANY CHGES AND FOLLOW CURRENT PLAN OF CARE.
[2019-01-10 01:04] VITALS: BP 100/62
--- NOTE | 2019-01-10 03:57 | NUR ---
I have reviewed this patient and I concur with the Shift Assessment completed by the Licensed Practical Nurse today this shift.
[2019-01-10 04:42] VITALS: BP 100/66
[2019-01-10 05:14] LABS: HEMOGLOBIN 7.8 g/dL (13.5-17.5); MCH 27.9 pg (26.0-34.0); MCV 92.9 fL (80.0-100.0); MEAN PLATELET VOLUME 9.3 fL (7.4-10.4); PLATELET COUNT 274 10x3/uL (130-400); RDW 20.5 % (11.5-14.5); WBC 9.2 10x3/uL (4.8-10.8)
[2019-01-10 05:57] LABS: ALBUMIN 2.2 g/dL (3.4-5.0); ANION GAP 8.9 mmol/L (8-16); BILIRUBIN - TOTAL 0.92 mg/dL (0.2-1.3); CALCIUM 8.5 mg/dL (8.5-10.1); CARBON DIOXIDE 30.3 mmol/L (21.0-32.0); POTASSIUM - SERUM 4.2 mmol/L (3.5-5.1); PROTEIN - SERUM 7.2 g/dL (6.4-8.2)
--- NOTE | 2019-01-10 07:00 | NUR ---
PATIENT RECIEVED FROM PREVIOUS NURSE RESTING WITH NO NEEDS VOICED, CHEST TUBE TO RIGHT SIDE TO GRAVITY. RESPIRATIONS REGULAR AND NON-LABORED. HOB 30, CL IN REACH, GHOSH PATENT TO BEDSIDE.
--- NOTE | 2019-01-10 07:58 | MORECARE ---
CASE MANAGEMENT DISCHARGE SUMMARY PATIENT: VIVIEN REYES SR UNIT: [id number] ADM DATE: 12/27/18 AGE: 63 : 57 SEX: M ROOM/BED: D.2237 AUTHOR: NOHEMI,DOC PHYSICIAN: REFERRING PHYSICIAN: KEELY LOZANO MD DATE OF SERVICE: 01/10/19 Discharge Plan Patient Name: VIVIEN REYES Facility: [facility]:[place] : 1955 Planned Disposition: Anticipated Discharge Date: Discharge Date: Expected LOS: Initial Reviewer: [email or web address] Initial Review Date: 12/28/2018 Generated: 01/10/19 8:58 am Comments DCP- Discharge Planning Updated by [email or web address]: Tala Rodriguez on 01/10/19 6:[address] CM met with patient. He states his discharge plan is to admit to inpatient rehab when discharged from acute care. He has a pending auth with [facility] for inpatient rehab at this time. CM will continue to follow and assist with discharge planning/needs. DCP- Discharge Planning Updated by [email or web address]: Jeannie Mccray on 01/06/19 5:[address] planning to go to inpatient rehab once more medically stable and chest tube is out. Rehab pre-screen ordered. CM will continue to follow and assist as needed with discharge planning / needs DCP- Discharge Planning Updated by [email or web address]: Jeannie Mccray on 12/28/18 1:[address] Patient Name: VIVIEN REYES Admission Status: Elective Accout number: [id number] Admission Date: 12-27-2018 : 1955 Admission Diagnosis: Attending: KEELY LOZANO Current LOS: 1 Anticipated DC Date: Planned Disposition: Primary Insurance: [facility] MEDICARE SOLUTIONS Discharge Planning Comments: CM met with patient at bedside after explaining CM role and obtaining verbal consent. Patient lives at home with his friend where he is independent with his care and plans to return there upon discharge. Patient feels this would be a safe discharge. CM discussed availability / needs of home health and medical equipment. Patient has home / portable 02 with [facility]. Patient denies any discharge needs at this time. Patient states he will have his family drive him home upon discharge. CM will continue to follow and assist as needed with discharge planning / needs. X Ray Examiner Of Aircraft: Jeannie Mccray DCP- Discharge Planning Updated by [email or web address]: Tala Cordobapetty on 12/28/18 6:[address] CM attempted to do initial admission assessment but the patient is not able to stay awake to answer questions. His speech is not clear and he is very hard to understand at this time. CM spoke to Charge nurse who reported they medicated him with Benadryl and they are having a hard time understanding him as well. Cm will try again at a later time when he is able to complete assessment. Riddhi Verdin RN, [facility] DCPIA - Discharge Planning Initial Assessment Updated by [email or web address]: Jeannie Mccray on 12/28/18 1:54 pm * Is the patient Alert and Oriented? No * How many steps to enter\exit or inside your home? * PCP RAFAEL * Pharmacy [facility] * Preadmission Environment Home with Family * ADLs Independent * Other Equipment HOME & PORTABLE 02 * List name and contact numbers for known caregivers / representatives who currently or will assist patient after discharge: ALESIA WALLERON - FRIEND - [phone] VIVIEN REYES - BROTHER - [phone] * Verbal permission to speak to the caregivers and representatives has been obtained from the patient. N/A * Community resources currently utilized None * Additional services required to return to the preadmission environment? No * Can the patient safely return to the preadmission environment? Yes * Has this patient been hospitalized within the prior 30 days at any hospital? Yes Last DP export: 01/06/19 5:46 Patient Name: VIVIEN REYES Page [id number] at 0758 All edits/amendments must be made on the electronic document DICTATION DATE: 01/10/19757 ROOMS DIRECTOR: LEIGH 01/10/19757 RPT#: [id number] DC DATE: STATUS: ADM IN [facility] [address] [place] [address] END OF REPORT
[2019-01-10 08:27] VITALS: BP 95/60
[2019-01-10 11:14] LABS: EOSINOPHILS 12 % (0-7); HYPOCHROMASIA OCC; LYMPHOCYTES 9 % (15-50); MONOCYTES 10 % (2-11); NEUTROPHILS 68 % (40-80); PLATELET ESTIMATE NORMAL; ROULEAUX OCC
--- NOTE | 2019-01-10 12:18 | NUR ---
OT NOTE: BED MOB WITH SPV; GOOD SITTING BALANCE ON EOB; UPPER BODY BATHING WITH SET UP; MOD ASSIST WITH LE BATHING AND PERINEAL AREA. SIT TO STAND WITH MIN ASSIST; IN ROOM AMBULATION WITH MIN ASSIST. RUBENS KAY, OTR/L
[2019-01-10 12:34] VITALS: BP 96/59
--- NOTE | 2019-01-10 14:59 | NUR ---
Rehab Note- Received voicemail from Shannon with [facility] stating that their medical transcription radiology had denied the patient an inpatient rehab stay, that his needs can be met at a lower level of care such as a SNF. A peer to peer can be set up by calling Shannon with [facility] at [phone] and setting up before 01/11/19@ 4916. Thank you for this referral! Will inform case management. Keri Velasco RN Clinical Liaison, [facility] Rehab
--- NOTE | 2019-01-10 17:15 | NUR ---
UNIT OF PRBC STARTED WITH PATIENT TOLERATING WELL. WILL CONT TO MONITOR
[2019-01-10 17:19] VITALS: BP 98/55
--- NOTE | 2019-01-10 18:36 | NUR ---
OT NOTE: PT COMPLETED SUPINE TO SIT WITH CGA. PT COMPLETED SIT TO STAND WITH CGA. PT COMPLETED GROOMING/HYGIENE TASKS WITH SET UP. THANK YOU, IRIS PENALOZA
--- NOTE | 2019-01-10 18:45 | NUR ---
PRBC INFUSING WITH PATIENT TOLERATING WELL
--- NOTE | 2019-01-11 01:08 | NUR ---
2030)[facility] GIVEN PER REQUEST SO HE CAN GO TO BED. C-PAP APPLIED PER RESP. THERAPY.RIGHT CHEST TUBE SITE WITH DRSG. DRY AND INTACT.20CM WALL SUCTION TO H20 SE[address] CANISTER. NO RESP DIFFICULTY OBSERVED. WILL CONTINUE TO MONITOR FOR ANY CHGES AND FOLLOW CURRENT PLAN OF CARE.
[2019-01-11 01:19] VITALS: BP 108/61
[2019-01-11 05:03] VITALS: BP 110/60
[2019-01-11 05:56] LABS: BASOPHILS 0.9 % (0-2); EOSINOPHILS 23.9 % (0-7); HEMATOCRIT 27.4 % (42.0-54.0); HEMOGLOBIN 8.3 g/dL (13.5-17.5); IMMATURE GRANULOCYTES 0.2 % (0-5); LYMPHOCYTES 9.3 % (15-50); MCH 27.9 pg (26.0-34.0); MCHC 30.3 g/dL (31.0-37.0); MCV 91.9 fL (80.0-100.0); MEAN PLATELET VOLUME 9.2 fL (7.4-10.4); MONOCYTES 7.9 % (2-11); NEUTROPHILS 57.8 % (40-80); PLATELET COUNT 289 10x3/uL (130-400); RBC 2.98 10x6/uL (4.20-6.10); RDW 20.2 % (11.5-14.5); WBC 10.2 10x3/uL (4.8-10.8)
[2019-01-11 06:04] LABS: ALBUMIN 2.3 g/dL (3.4-5.0); ANION GAP 10.1 mmol/L (8-16); BILIRUBIN - TOTAL 1.12 mg/dL (0.2-1.3); CALCIUM 8.4 mg/dL (8.5-10.1); CARBON DIOXIDE 32.6 mmol/L (21.0-32.0); POTASSIUM - SERUM 4.7 mmol/L (3.5-5.1); PROTEIN - SERUM 6.9 g/dL (6.4-8.2)
--- NOTE | 2019-01-11 06:37 | NUR ---
I have reviewed this patient and I concur with the Shift Assessment completed by the Licensed Practical Nurse today this shift.
--- NOTE | 2019-01-11 07:00 | NUR ---
PATIENT RECIEVED FROM PREVIOUS NURSE RESTING IN BED, BI-PAP IN PLACE. RESPIRATIONS REGULAR AND NON-LABORED. CL IN REACH
[2019-01-11 09:21] VITALS: BP 113/66
--- NOTE | 2019-01-11 11:11 | NUR ---
PATIENT AMBULATED WITH PT AND IS NOW SITTING UP IN [facility]. NO DISTRESS, CL IN REACH
[2019-01-11 12:40] VITALS: BP 94/58
--- NOTE | 2019-01-11 13:28 | NUR ---
Nutrition follow-up: Diet: Regular with thin liquids PO intake ~65% average of meals Labs reviewed Wt: 176# CT in place; draining +BM RDN following.
[2019-01-11 16:56] VITALS: BP 98/54
--- NOTE | 2019-01-11 17:17 | NUR ---
OT NOTE: PT COMPLETED BED MOB TASKS WITH SBA. PT COMPLETED STANDING BALANCE AXS WITH SBA/CGA. PT COMPLETED ADL MOB WITH MIN A SECONDARY TO MEDICAL EQUIPMENT NEEDS. PT COMPLETED UE AROM AXS. PT FUNCTIONAL ACTIVITY TOLERANCE IS IMPROVING PT REQUIRED LESS REST BREAKS. THANK YOU, IRIS PENALOZA
[2019-01-11 20:39] VITALS: BP 122/84
--- NOTE | 2019-01-11 23:16 | NUR ---
PATIENT IN BED WITH NO STATED NEEDS. IV TO LEFT HAND INTACT NO REDNESS NOTED TO SITE DENIES PAIN AT IV SITE. BI PAP AT NIGHT O2 AT 4L VIA N/C IN PLACE.WATER , CALL LIGHT IN REACH BED LOW ALARM IN PLACE. RESTING WITH NO S/S OF DISTRESS.
[2019-01-12 01:22] VITALS: BP 120/70
[2019-01-12 05:03] VITALS: BP 93/62
[2019-01-12 06:13] LABS: BASOPHILS 0.5 % (0-2); EOSINOPHILS 24.2 % (0-7); HEMOGLOBIN 8.4 g/dL (13.5-17.5); IMMATURE GRANULOCYTES 0.2 % (0-5); LYMPHOCYTES 8.7 % (15-50); MCH 28.2 pg (26.0-34.0); MEAN PLATELET VOLUME 9.1 fL (7.4-10.4); MONOCYTES 6.6 % (2-11); NEUTROPHILS 59.8 % (40-80); PLATELET COUNT 287 10x3/uL (130-400); RBC 2.98 10x6/uL (4.20-6.10); RDW 20.5 % (11.5-14.5); WBC 10.3 10x3/uL (4.8-10.8)
[2019-01-12 06:36] LABS: ALBUMIN 2.3 g/dL (3.4-5.0); ANION GAP 9.8 mmol/L (8-16); BILIRUBIN - TOTAL 0.84 mg/dL (0.2-1.3); CALCIUM 8.9 mg/dL (8.5-10.1); CARBON DIOXIDE 32.9 mmol/L (21.0-32.0); POTASSIUM - SERUM 4.7 mmol/L (3.5-5.1); PROTEIN - SERUM 7.4 g/dL (6.4-8.2)
--- NOTE | 2019-01-12 07:50 | NUR ---
PT IS RESTING IN BED WITH EYES CLOSED. RESPIRATIONS ARE EVEN AND UNLABORED. PT IS EASILY AROUSED WITH VERBAL STIMULATION. PT IS AAO X 4 UPON AROUSAL. CHEST TUBE NOTED TO RIGHT UPPER SIDE DRAINING WITHOUT COMPROMISE. GHOSH CATHETER NOTED AND DRAINING WITHOUT DIFFICULTY. FIRST STEP OVERLAY IN PLACE. HAYDE ALARM IS ON AND WORKING. BIPAP AT BEDSIDE. O2 VIA NC 2 4L. PT EDUCATED ON HOB >30 DEGREES. PT VERBALIZES UNDERSTANDING AND STATES "I DIDNT GET MUCH SLEEP LAST NIGHT. I JUST WANT A COUPLE OF HOURS FOR A NAP". PT DENIES PRESENCE OF N/V/PAIN AT THIS TIME. BED IS IN THE LOWEST POSITION. CALL LIGHT AND BEDSIDE TABLE ARE WITHIN REACH. SIDE RAILS X 2. FALL PRECAUTIONS ARE IN PLACE. PT DENIES FURTHER NEEDS. WILL CONT TO MONITOR.
[2019-01-12 09:21] VITALS: BP 100/60
--- NOTE | 2019-01-12 10:32 | NUR ---
DRESSING TO COCCYX/BUTTOCK CHANGED. MEPILEX PLACED. PT ABLE TO REPOSITION WITHOUT DIFFICULTY AND WITHOUT ASSISTANCE. DRESSING TO RIGT CHEST TUBE INSERTION SITE IS CDI. PT DENIES FURTHER NEEDS. BED IS IN THE LOWEST POSITION. CALL LIGHT AND BEDSIDE TABLE ARE WITHIN REACH. SIDE RAILS X 2. WILL CONT TO MONITOR.
--- NOTE | 2019-01-12 11:27 | NUR ---
GHOSH CATHETER CLAMPED FOR BLADDER TRAINING FOR GHOSH DC. PT EDUCATED ON BLADDER TRAINING. PT VERBALIZES UNDERSTANDING.
--- NOTE | 2019-01-12 12:55 | NUR ---
PT REPORTS URGE TO URINATE. CATHETER UNCLAMPPED AND URINE DRAINING INTO GHOSH COLLECTION BAG WITHOUT DIFFICULTY.
[2019-01-12 13:10] VITALS: BP 130/80
--- NOTE | 2019-01-12 15:05 | NUR ---
OT NOTE: PT PERFORMED BED MOB WITH MIN ASSIST; SIT TO STAND WITH MIN ASSIST AND USE OF WALKER. ABLE TO STAND FOR APPROX 3 MIN WHILE TOILET HYGIENE WAS PERFORMED. ABLE TO WASH HANDS,CHEST, ARMS, AND FACE WITH WASH CLOTH. AMB GREATER THAN 100 FT WITH USE OF WALKER, GAIT BELT, AND ASSIST WITH DRAINAGE TUBE, CATHETER, AND 02. PT REMAINS SOMEWHAT CONFUSED AND EASILY DISTRACTED. PT ENCOURAGED TO SIT UP IN CHAIR BUT REFUSED THIS TODAY. BACK TO BED WITH MIN ASSIST; TOLERATED TMT WELL. RUBENS KAY, OTR/L
[2019-01-12 15:09] LABS: FUNGUS CULTURE RESULT 1 Candida dubliniensis (())
--- NOTE | 2019-01-12 15:12 | NUR ---
10ML SALINE REMOVED FROM CATHETER BALLOON. GHOSH CATHETER REMOVED. PT TOLERATED WELL. BED IS IN THE LOWEST POSITION. CALL LGIHT AND BEDSIDE TABLEA RE WITHIN REACH. SIDE RAILS X 2. PT ENCOURAGED TO REPOSITION CAREFULLY. WILL CONT TO MONITOR.
[2019-01-12 16:21] VITALS: BP 93/50
--- NOTE | 2019-01-12 17:14 | NUR ---
OT NOTE: PT COMPLETED SUPINE TO SIT WITH SBA. PT COMPLETED SIT TO STAND WITH SBA. PT COMPLETED FACE WASH WITH SETUP. PT REQUIRED MOD/MAX A FOR HYGIENE TASK. THANK YOU, IRIS PENALOZA
--- NOTE | 2019-01-12 18:13 | NUR ---
PT VOIDS FIRST VOID SINCE GHOSH CATHETER DC. VOID AMOUNT OF 100ML DARK YELLOW URINE VIA URINAL.
--- NOTE | 2019-01-12 18:35 | NUR ---
PT C/O HEADACHE. DARRYL AVALOS APRN PAGED FOR PAIN MEDICATION ORDER.
[2019-01-12 20:00] VITALS: BP 104/56
--- NOTE | 2019-01-12 23:22 | NUR ---
CALLED FOR RAPID RESPONSE ON PATIENT HAVING MIDSTERNAL/UPPER EPIGASTRIC PAIN. EKG AND LAB DONE. CALLED DARRYL AVALOS APN. NEW ORDERS RECEIVED. PATIENT WILL STAY IN ROOM, CARDIAC ENZYMES ORDERED, AND CALL HIDE INSPECTOR BACK IF ELEVATED. UNABLE TO ADMINISTER NTG OR PAIN MEDS DUE TO BP OF 99/50 (72).
[2019-01-13] VITALS: BP 112/65
[2019-01-13 00:23] LABS: CKMB 0.7 U/L (0.0-3.6); CREATINE KINASE 54 UL (21-232)
[2019-01-13 00:25] LABS: TROPONIN-I 0.299 ng/mL (0.000-0.060)
--- NOTE | 2019-01-13 01:55 | NUR ---
patient is alert and orened with some confusion noted at times. O2 at 4l/via n/c, IV left hand ,S.L., call light and water in reach at bedside. Chest tub in place to right side, intact with serous fluid to system. bi-pap at night on a step overlay matries. at 2322 call a rappied responce due to patient c/o sever chest pain . team responed and lab orders anf EKG done call to JUMP ROLL OPERATOR with lab resultes elavated CK{CK-2} of 0.7 and Troponin of 0.299. order for reconsult for Dr. Gomez , will call in am as pt passed some carie and stated he felt better. Resting at thi stime with no s/s of distress.
[2019-01-13 04:00] VITALS: BP 112/73; BP 118/72
[2019-01-13 05:43] LABS: EOSINOPHILS 22.5 % (0-7); HEMATOCRIT 27.9 % (42.0-54.0); HEMOGLOBIN 8.4 g/dL (13.5-17.5); IMMATURE GRANULOCYTES 0.4 % (0-5); LYMPHOCYTES 9.2 % (15-50); MCH 28.1 pg (26.0-34.0); MCHC 30.1 g/dL (31.0-37.0); MCV 93.3 fL (80.0-100.0); MEAN PLATELET VOLUME 9.5 fL (7.4-10.4); MONOCYTES 6.4 % (2-11); NEUTROPHILS 60.5 % (40-80); RBC 2.99 10x6/uL (4.20-6.10); RDW 20.4 % (11.5-14.5); WBC 9.8 10x3/uL (4.8-10.8)
[2019-01-13 06:36] LABS: ALBUMIN 2.4 g/dL (3.4-5.0); ALKALINE PHOSPHATASE 258 U/L (46-116); ALT (SGPT) 16 U/L (10-68); BILIRUBIN - TOTAL 0.87 mg/dL (0.2-1.3); CALC OSMOLALITY 282 mosm/kg (275-300); CALCIUM 8.7 mg/dL (8.5-10.1); CARBON DIOXIDE 34.7 mmol/L (21.0-32.0); CHLORIDE - SERUM 96 mmol/L (98-107); CKMB 1.1 U/L (0.0-3.6); CREATINE KINASE 49 UL (21-232); CREATININE - SERUM 2.1 mg/dL (0.6-1.3); GLUCOSE 89 mg/dL (74-106); PROTEIN - SERUM 7.3 g/dL (6.4-8.2); SODIUM 134 mmol/L (136-145); UREA NITROGEN 58 mg/dL (7-18); eGFR NON AFRICAN AMERICAN 34 mL/min (90-120)
[2019-01-13 06:47] LABS: PLATELET COUNT 350 10x3/uL (130-400)
--- NOTE | 2019-01-13 09:00 | NUR ---
ALERT AQND OREINTED X3. BREATH SOUNDS DIMINISHED X4 POSTERIOR WITH O2 4L N/C. UP WITH THERAPY WITH SBA. CHEST TUBE TO RT. CHEST. HOB AT 40> ANGLE. ENCOURAGED TO USE CALL LIGHT FOR ASSSIT WITH NO PERIPHERAL EDEMA NOTED. MEPILEX DRESSING INTACT TO COCCYX.
[2019-01-13 09:50] VITALS: BP 106/73
--- NOTE | 2019-01-13 10:32 | NUR ---
OT NOTE: PT PERFORMED WELL TODAY. BED MOB WITH MIN ASSIST FOR SUPINE TO SIT; SITTING BALANCE ON EOB WAS GOOD. ABLE TO PERFORM HAND AND FACE WASHING WITH SET UP; MOD ASSIST TO NATHEN SOCKS. FUNCTIONAL TRANSFERS WITH MIN ASSIST; IN ROOM AMBULATION WITH MIN ASSIST. AMB IN HALLWAY TO IMPROVE FUNCTIONAL ENDURANCE AND STRENGTH. PT VERY DISTRACTABLE DURING AMBULATION. REQUIRES WALKER, MIN ASSIST, AND ASSIST TO CARRY 02 AND DRAINAGE CONTAINER. PT SAT UP IN CHAIR WHEN RETURNED TO ROOM. RUBENS KAY OTR/L
[2019-01-13 12:16] LABS: CKMB 0.9 U/L (0.0-3.6); CREATINE KINASE 56 UL (21-232)
[2019-01-13 12:17] LABS: TROPONIN-I 0.286 ng/mL (0.000-0.060)
--- NOTE | 2019-01-13 13:28 | MORECARE ---
CASE MANAGEMENT DISCHARGE SUMMARY PATIENT: VIVIEN REYES UNIT: [id number] ADM DATE: 12/27/18 AGE: 63 : 57 SEX: M ROOM/BED: D.2237 AUTHOR: NOHEMI,DOC PHYSICIAN: REFERRING PHYSICIAN: KEELY LOZANO MD DATE OF SERVICE: 01/13/19 Discharge Plan Patient Name: VIVIEN REYES Facility: [facility]:[place] : 1955 Planned Disposition: Anticipated Discharge Date: Discharge Date: Expected LOS: Initial Reviewer: [email or web address] Initial Review Date: 12/28/2018 Generated: 01/13/19 2:28 pm Comments DCP- Discharge Planning Updated by [email or web address]: Tala Rodriguez on 01/13/19 12:[address] Inpatient rehab stay has been denied by his insurance. He is ambulating 250 feet without assist. I discussed the availability of SNF and home health. He states he would like to go home with home health. I gave him a HELENE form and he chose [facility]. He states he has oxygen and nebulizer, he also has a trilogy at home and his step brother will take him home on discharge. I reminded him to have portable oxygen for discharge. He uses [facility] for DME. CM will continue to follow and assist with discharge planning/needs. DCP- Discharge Planning Updated by [id number]: Tala Rodriguez on 01/10/19 6:[address] CM met with patient. He states his discharge plan is to admit to inpatient rehab when discharged from acute care. He has a pending auth with [facility] for inpatient rehab at this time. CM will continue to follow and assist with discharge planning/needs. DCP- Discharge Planning Updated by [email or web address]: Jeannie Mccray on 01/06/19 5:[address] planning to go to inpatient rehab once more medically stable and chest tube is out. Rehab pre-screen ordered. CM will continue to follow and assist as needed with discharge planning / needs DCP- Discharge Planning Updated by [email or web address]: Jeannie Mccray on 12/28/18 1:[address] Patient Name: VIVIEN REYES Admission Status: Elective Accout number: [id number] Admission Date: 12-27-2018 : 1955 Admission Diagnosis: Attending: KEELY LOZANO Current LOS: 1 Anticipated DC Date: Planned Disposition: Primary Insurance: [facility] MEDICARE SOLUTIONS Discharge Planning Comments: CM met with patient at bedside after explaining CM role and obtaining verbal consent. Patient lives at home with his friend where he is independent with his care and plans to return there upon discharge. Patient feels this would be a safe discharge. CM discussed availability / needs of home health and medical equipment. Patient has home / portable 02 with [facility] [place]. Patient denies any discharge needs at this time. Patient states he will have his family drive him home upon discharge. CM will continue to follow and assist as needed with discharge planning / needs. Correspondence School Teacher: Jeannie Mccray DCP- Discharge Planning Updated by [email or web address]: Tala Rodriguez on 12/28/18 6:[address] CM attempted to do initial admission assessment but the patient is not able to stay awake to answer questions. His speech is not clear and he is very hard to understand at this time. CM spoke to Charge nurse who reported they medicated him with Benadryl and they are having a hard time understanding him as well. Cm will try again at a later time when he is able to complete assessment. Riddhi Verdin RN, [facility] DCPIA - Discharge Planning Initial Assessment Updated by [email or web address]: Jeannie Mccray on 12/28/18 1:54 pm * Is the patient Alert and Oriented? No * How many steps to enter\exit or inside your home? * PCP RAFAEL * Pharmacy [facility] * Preadmission Environment Home with Family * ADLs Independent * Other Equipment HOME & PORTABLE 02 * List name and contact numbers for known caregivers / representatives who currently or will assist patient after discharge: ALESIA FLORIAN - FRIEND - [phone] VIVIEN REYES - BROTHER - [phone] * Verbal permission to speak to the caregivers and representatives has been obtained from the patient. N/A * Community resources currently utilized None * Additional services required to return to the preadmission environment? No * Can the patient safely return to the preadmission environment? Yes * Has this patient been hospitalized within the prior 30 days at any hospital? Yes Coverage Notice Reviewer: [email or web address] - Tala Rodriguez Notice Issued Date-Time: 01/13/2019 13:13 Notice Type: Patient Choice Letter Notice Delivered To: Patient Relationship to Patient: Self Pipe Turner Name: Delivery Method: HAND - Hand Delivered Shae Days: Prior Verbal Notification: Recipient Understood Notice: Yes Recipient Signature: Yes Med Rec Note Co-signed by Attending: Coverage Notice Comment: [facility] for [facility] Last DP export: 01/10/19 6:58 Patient Name: VIVIEN REYES Page [id number] at 1328 All edits/amendments must be made on the electronic document DICTATION DATE: 01/13/198 INTERNAL REVENUE AGENT: LEIGH 01/13/19 1328 RPT#: [id number] DC DATE: STATUS: ADM IN [facility] [address] [place] [address] END OF REPORT
--- NOTE | 2019-01-13 14:26 | MORECARE ---
CASE MANAGEMENT DISCHARGE SUMMARY PATIENT: VIVIEN REYES UNIT: [id number] ADM DATE: 12/27/18 AGE: 63 : 57 SEX: M ROOM/BED: D.2237 AUTHOR: NOHEMI,DOC PHYSICIAN: REFERRING PHYSICIAN: KEELY LOZANO MD DATE OF SERVICE: 01/13/19 Discharge Plan Patient Name: VIVIEN REYES Facility: [facility]:[place] : 1955 Planned Disposition: Anticipated Discharge Date: Discharge Date: Expected LOS: Initial Reviewer: [email or web address] Initial Review Date: 12/28/2018 Generated: 01/13/19 3:26 pm Comments DCP- Discharge Planning Updated by [id number]: Tala Rodriguez on 01/13/19 12:[address] Inpatient rehab stay has been denied by his insurance. He is ambulating 250 feet without assist. I discussed the availability of SNF and home health. He states he would like to go home with home health. I gave him a HELENE form and he chose [facility]. He states he has oxygen and nebulizer, he also has a trilogy at home and his step brother will take him home on discharge. I reminded him to have portable oxygen for discharge. He uses [facility] for DME. CM will continue to follow and assist with discharge planning/needs. DCP- Discharge Planning Updated by [email or web address]: Tala Rodriguez on 01/10/19 6:[address] CM met with patient. He states his discharge plan is to admit to inpatient rehab when discharged from acute care. He has a pending auth with [facility] for inpatient rehab at this time. CM will continue to follow and assist with discharge planning/needs. DCP- Discharge Planning Updated by [id number]: Jeannie Mccray on 01/06/19 5:[address] planning to go to inpatient rehab once more medically stable and chest tube is out. Rehab pre-screen ordered. CM will continue to follow and assist as needed with discharge planning / needs DCP- Discharge Planning Updated by [email or web address]: Jeannie Mccray on 12/28/18 1:[address] Patient Name: VIVIEN REYES Admission Status: Elective Accout number: [id number] Admission Date: 12-27-2018 : 1955 Admission Diagnosis: Attending: KEELY LOZANO Current LOS: 1 Anticipated DC Date: Planned Disposition: Primary Insurance: [facility] MEDICARE SOLUTIONS Discharge Planning Comments: CM met with patient at bedside after explaining CM role and obtaining verbal consent. Patient lives at home with his friend where he is independent with his care and plans to return there upon discharge. Patient feels this would be a safe discharge. CM discussed availability / needs of home health and medical equipment. Patient has home / portable 02 with [facility] [place]. Patient denies any discharge needs at this time. Patient states he will have his family drive him home upon discharge. CM will continue to follow and assist as needed with discharge planning / needs. Bobbin Disker: Jeannie Mccray DCP- Discharge Planning Updated by [email or web address]: Tala Rodriguez on 12/28/18 6:[address] CM attempted to do initial admission assessment but the patient is not able to stay awake to answer questions. His speech is not clear and he is very hard to understand at this time. CM spoke to Charge nurse who reported they medicated him with Benadryl and they are having a hard time understanding him as well. Cm will try again at a later time when he is able to complete assessment. Riddhi Verdin RN, [facility] DCPIA - Discharge Planning Initial Assessment Updated by [email or web address]: Jeannie Mccray on 12/28/18 1:54 pm * Is the patient Alert and Oriented? No * How many steps to enter\exit or inside your home? * PCP RAFAEL * Pharmacy [facility] * Preadmission Environment Home with Family * ADLs Independent * Other Equipment HOME & PORTABLE 02 * List name and contact numbers for known caregivers / representatives who currently or will assist patient after discharge: ALESIA FLORIAN - FRIEND - [phone] VIVIEN REYES - BROTHER - [phone] * Verbal permission to speak to the caregivers and representatives has been obtained from the patient. N/A * Community resources currently utilized None * Additional services required to return to the preadmission environment? No * Can the patient safely return to the preadmission environment? Yes * Has this patient been hospitalized within the prior 30 days at any hospital? Yes External Providers External Provider: [employer] [facility] Next Contact Date: Service Request Date: Service Type: Resolution: Reviewer: Comments: Coverage Notice Reviewer: [email or web address] [place] Tala Rodriguez Notice Issued Date-Time: 01/13/2019 13:13 Notice Type: Patient Choice Letter Notice Delivered To: Patient Relationship to Patient: Self Branch Rental Manager Name: Delivery Method: HAND - Hand Delivered Shae Days: Prior Verbal Notification: Recipient Understood Notice: Yes Recipient Signature: Yes Med Rec Note Co-signed by Attending: Coverage Notice Comment: [facility] for [facility] Last DP export: 01/13/19 12:28 Patient Name: VIVIEN REYES Page [id number] at 1426 All edits/amendments must be made on the electronic document DICTATION DATE: 01/13/191425 PENOLOGY PROFESSOR: LEIGH 01/13/191425 RPT#: [id number] DC DATE: STATUS: ADM IN [facility] [address] [place] [address] END OF REPORT
--- NOTE | 2019-01-13 16:01 | MORECARE ---
CASE MANAGEMENT DISCHARGE SUMMARY PATIENT: VIVIEN REYES SR UNIT: [id number] ADM DATE: 12/27/18 AGE: 63 : 57 SEX: M ROOM/BED: D.2237 AUTHOR: NOHEMI,DOC PHYSICIAN: REFERRING PHYSICIAN: KEELY LOZANO MD DATE OF SERVICE: 01/13/19 Discharge Plan Patient Name: VIVIEN REYES Facility: [facility]:[place] : 1955 Planned Disposition: Anticipated Discharge Date: Discharge Date: Expected LOS: Initial Reviewer: [email or web address] Initial Review Date: 12/28/2018 Generated: 01/13/19 5:01 pm Comments DCP- Discharge Planning Updated by [id number]: Tala Michael on 01/13/19 2:[address] Georgie with [facility] returned my call and states they cannot accept patient due to unsafe living conditions. She states that he does not live alone and their is "too much activity around his house." He will not be able to receive home health at this time. CM will continue to follow and assist with discharge planning/needs. DCP- Discharge Planning Updated by [email or web address]: Tala Cordobapetty on 01/13/19 12:[address] Inpatient rehab stay has been denied by his insurance. He is ambulating 250 feet without assist. I discussed the availability of SNF and home health. He states he would like to go home with home health. I gave him a HELENE form and he chose [facility]. He states he has oxygen and nebulizer, he also has a trilogy at home and his step brother will take him home on discharge. I reminded him to have portable oxygen for discharge. He uses [facility] for DME. CM will continue to follow and assist with discharge planning/needs. DCP- Discharge Planning Updated by [id number]: Tala Michael on 01/10/19 6:[address] CM met with patient. He states his discharge plan is to admit to inpatient rehab when discharged from acute care. He has a pending auth with [facility] for inpatient rehab at this time. CM will continue to follow and assist with discharge planning/needs. DCP- Discharge Planning Updated by [id number]: Jeannie Mccray on 01/06/19 5:[address] planning to go to inpatient rehab once more medically stable and chest tube is out. Rehab pre-screen ordered. CM will continue to follow and assist as needed with discharge planning / needs DCP- Discharge Planning Updated by [id number]: Jeannie Mccray on 12/28/18 1:[address] Patient Name: VIVIEN REYES Admission Status: Elective Accout number: [id number] Admission Date: 12-27-2018 : 1955 Admission Diagnosis: Attending: KEELY LOZANO Current LOS: 1 Anticipated DC Date: Planned Disposition: Primary Insurance: [facility] MEDICARE SOLUTIONS Discharge Planning Comments: CM met with patient at bedside after explaining CM role and obtaining verbal consent. Patient lives at home with his friend where he is independent with his care and plans to return there upon discharge. Patient feels this would be a safe discharge. CM discussed availability / needs of home health and medical equipment. Patient has home / portable 02 with [facility]. Patient denies any discharge needs at this time. Patient states he will have his family drive him home upon discharge. CM will continue to follow and assist as needed with discharge planning / needs. Diving Judge: Jeannie Mccray DCP- Discharge Planning Updated by [email or web address]: Tala Michael on 12/28/18 6:[address] CM attempted to do initial admission assessment but the patient is not able to stay awake to answer questions. His speech is not clear and he is very hard to understand at this time. CM spoke to Charge nurse who reported they medicated him with Benadryl and they are having a hard time understanding him as well. Cm will try again at a later time when he is able to complete assessment. Riddhi Verdin RN, [facility] DCPIA - Discharge Planning Initial Assessment Updated by [id number]: Jeannie Mccray on 12/28/18 1:54 pm * Is the patient Alert and Oriented? No * How many steps to enter\\exit or inside your home? * PCP RAFAEL * Pharmacy [facility] * Preadmission Environment Home with Family * ADLs Independent * Other Equipment HOME & PORTABLE 02 * List name and contact numbers for known caregivers / representatives who currently or will assist patient after discharge: ALESIA FLORIAN - FRIEND - [phone] VIVIEN REYES - BROTHER - [phone] * Verbal permission to speak to the caregivers and representatives has been obtained from the patient. N/A * Community resources currently utilized None * Additional services required to return to the preadmission environment? No * Can the patient safely return to the preadmission environment? Yes * Has this patient been hospitalized within the prior 30 days at any hospital? Yes Coverage Notice Reviewer: [id number] Hudson Tala Michael Notice Issued Date-Time: 01/13/2019 13:13 Notice Type: Patient Choice Letter Notice Delivered To: Patient Relationship to Patient: Self Hazardous Materials Tanker Driver Name: Delivery Method: HAND - Hand Delivered Shae Days: Prior Verbal Notification: Recipient Understood Notice: Yes Recipient Signature: Yes Med Rec Note Co-signed by Attending: Coverage Notice Comment: HELENE for [facility] or [facility] Last DP export: 01/13/19 1:26 Patient Name: VIVIEN REYES Page [id number] at 1601 All edits/amendments must be made on the electronic document DICTATION DATE: 01/13/191600 TECHNICIAN SUPPORT ASSOCIATION: LEIGH 01/13/19 160 RPT#: [id number] DC DATE: STATUS: ADM IN [facility] [address] [place] [address] END OF REPORT
[2019-01-13 17:07] VITALS: BP 100/62
[2019-01-13 20:00] VITALS: BP 98/59
--- NOTE | 2019-01-13 23:27 | NUR ---
RESTING IN BED BUT EASILY AROUSED. NO SIGNS OF DISRESS NOTED. CHEST TUBE TO RT SIDE OF CHEST. LIGHT PINK DRAINAGE NOTED TO THE CHEST TUBE. ASSISTED PT WITH APPLYING BIPAP AND REPOSTIONING RIGHT SIDE. IV TO THE RT UPPER ARM WITH NO REDNESS OR SWELLING NOTED. HAYDE ALARM ON. DENIES NO OTHER NEEDS AT THIS TIME. CONTINUE PLAN OF CARE.
[2019-01-14] VITALS (7 sets, daily range): BP systolic 91–110; BP diastolic 48–60
--- NOTE | 2019-01-14 00:30 | NUR ---
FOUND IV IN BED WITH CATH INTACT. RESTARTED IV TO THE LT FOREARM. DENIES NO FURTHER NEEDS AT THIS TIME. CONTINUE PLAN OF CARE.
[2019-01-14 06:23] LABS: BASOPHILS 0.6 % (0-2); EOSINOPHILS 20.1 % (0-7); HEMATOCRIT 26.4 % (42.0-54.0); HEMOGLOBIN 7.9 g/dL (13.5-17.5); IMMATURE GRANULOCYTES 0.3 % (0-5); LYMPHOCYTES 9.1 % (15-50); MCH 27.9 pg (26.0-34.0); MCHC 29.9 g/dL (31.0-37.0); MCV 93.3 fL (80.0-100.0); MEAN PLATELET VOLUME 9.2 fL (7.4-10.4); MONOCYTES 7.2 % (2-11); NEUTROPHILS 62.7 % (40-80); PLATELET COUNT 328 10x3/uL (130-400); RBC 2.83 10x6/uL (4.20-6.10); RDW 20.3 % (11.5-14.5); WBC 9.7 10x3/uL (4.8-10.8)
[2019-01-14 06:51] LABS: ALBUMIN 2.3 g/dL (3.4-5.0); ANION GAP 10.3 mmol/L (8-16); BILIRUBIN - TOTAL 0.8 mg/dL (0.2-1.3); CALCIUM 8.8 mg/dL (8.5-10.1); CARBON DIOXIDE 32.7 mmol/L (21.0-32.0); CREATININE - SERUM 2.2 mg/dL (0.6-1.3); PROTEIN - SERUM 7.3 g/dL (6.4-8.2)
--- NOTE | 2019-01-14 09:34 | NUR ---
ALERT AND ORIENTED X4. CHEST TUBE INTACT RO RT. CHEST WITH SEROUSANGUNOUS DRAINAGE NOTED. LUNGS DIMINISHED TO BLQ POSTERIOR.IV TO LT. F/A INTACT. MEPILEX DRESSING CHANGED POST BATH. NO PERIPHERAL EDEMA NOTED AND ENCOURAGED TO AMBULATED WITH ASSSIT.ENCOURAGED TO USE CLAL LIGHT FOR ASSSIT.
--- NOTE | 2019-01-14 12:38 | NUR ---
OT NOTE: UPON ENTERING ROOM, PT HAD BLANKET UP TO FACE; ASKED PT IF HE WAS READY TO GET UP. PT USUALLY RESPONDS YES, HOWEVER, TODAY HE STATED THAT HE DIDNT WANT TO GET UP. STATED THAT HE DIDNT FEEL GOOD. THIS IS NOT NORMALLY THE CASE WITH PT. INFORMED NURSING. WILL ATTEMPT LATER. RUBENS KAY, OTR/L
--- NOTE | 2019-01-14 13:22 | NUR ---
OT NOTE: PT STATED THAT HE WAS VERY TIRED BUT AGREED TO GET UP IN AFTERNOON. IN ROOM AMBULATION WITH WALKER AND CGA..ASSIST WITH 02 AND DRAINAGE CONTAINER. SINK HYGIENE WITH MIN ASSIST; TRANSFERS WITH CGA; BED MOB WITH MIN ASSIST. RUBENS KAY, OTR/L
--- NOTE | 2019-01-14 15:31 | NUR ---
20G IV STARTED TO LT. F/A WITH 1 UNIT PRBC'S INFUSING. NO S/S OF REACTION NOTED AT THIS TIME
--- NOTE | 2019-01-14 20:43 | NUR ---
PT C/O ITCHING. ATTEMPTED TO RELIEVE BY APPLYING LOTION, POWDER AND REPOSITIONING. PT STILL C/O ITCHING. CALLED [facility] AND RECEIVED ORDER FOR AND GAVE BENADRYL 12.5 MG IV PUSH. NO OTHER NEEDS. WILL REASSESS AND CONTINUE TO MONITOR.
[2019-01-15] VITALS: BP 111/67
--- NOTE | 2019-01-15 02:00 | NUR ---
PT GIVEN COMPLETE BED BATH AND LINEN CHANGE. SKIN DRY. APPLIED LOTION TO ENTIRE BODY. PULLED PT UP IN BED. PT REFUSES TO TURN ONTO LEFT SIDE. RIGHT CHEST TUBE DRAINING SEROSANG FLUID. NO OTHER NEEDS. WILL CONTINUE TO MONITOR.
[2019-01-15 04:00] VITALS: BP 97/55
[2019-01-15 08:25] VITALS: BP 112/62
--- NOTE | 2019-01-15 09:00 | NUR ---
ALERT AND ORIENTED X3. O2 3L N/C. CHEST TUBE INTACT TO RT. MID AXILLARY WITH SEROUS DRAINAGE NOTED. BED BATH GIVEN WITH SKIN INTACT TO COCCYX. BIPAP USED AT HS. IST STEP OVERLAY MATTRESS IN USE AND REPOSTIONED FOR COMFORT BUT REFUSES TO LAY ON RT. SIDE.HOB AT 40 DEGREE ANGLE. ENCOURAGED TO USE CALL LILGHT FOR ASSIST. DENIES ANY APIN OR DISCOMFORT AT THIS TIME.
[2019-01-15 12:07] VITALS: BP 114/59
[2019-01-15 16:56] VITALS: BP 110/78
[2019-01-15 20:00] VITALS: BP 108/61
--- NOTE | 2019-01-15 20:00 | NUR ---
CHEST TUBE CONTAINER FULL. CALLED PRINTING BINDERY ASSISTANT AND RECEIVED NEW ONE. REPLACED FULL ONE WITH NEW ONE. FUNCTIONING PROPERLY. COMPLETE ASSESSMENT PER FLOW-SHEET. NO OTHER NEEDS. WILL CONTINUE TO MONITOR.
[2019-01-16 04:00] VITALS: BP 111/64
[2019-01-16 04:49] LABS: BASOPHILS 0.8 % (0-2); HEMATOCRIT 29.5 % (42.0-54.0); HEMOGLOBIN 8.8 g/dL (13.5-17.5); IMMATURE GRANULOCYTES 0.2 % (0-5); LYMPHOCYTES 9.1 % (15-50); MCH 27.9 pg (26.0-34.0); MCHC 29.8 g/dL (31.0-37.0); MCV 93.7 fL (80.0-100.0); MEAN PLATELET VOLUME 9.1 fL (7.4-10.4); MONOCYTES 8.2 % (2-11); NEUTROPHILS 60.7 % (40-80); PLATELET COUNT 352 10x3/uL (130-400); RBC 3.15 10x6/uL (4.20-6.10); RDW 20.1 % (11.5-14.5)
--- NOTE | 2019-01-16 05:05 | NUR ---
PT INCONTINENT OF SMALL FORMED BM. CLEANED AND CHANGED BED LINEN. REPOSITIONED. MARKED AND DOCUMENTED 500 CC'S SEROSANG DRAINAGE FROM CHEST TUBE. NO OTHER NEEDS. HOB AT 30 DEGREES.
[2019-01-16 05:11] LABS: ANION GAP 9.6 mmol/L (8-16); CARBON DIOXIDE 34.7 mmol/L (21.0-32.0); CREATININE - SERUM 2.2 mg/dL (0.6-1.3); POTASSIUM - SERUM 4.3 mmol/L (3.5-5.1)
--- NOTE | 2019-01-16 07:10 | NUR ---
PT RESTING IN BED WITH EYES CLOSED EASILY AROUSED TO SPEECH, NO S/S OF DISTRESS. CURRENTLY RCVING 2L VIA. IVS LOCATED TO LEFT UPPER ARM AND LEFT FOREARM BOTH CURRENTLY SL. CHEST TUBE IS LOCATED TO RIGHT SIDE PUTTING OUT A GENEROUS AMOUNT OF PINK DRAINAGE. DENIES NEEDS AT THIS TIME, WILL CONT TO MONITOR.
[2019-01-16 08:48] VITALS: BP 101/59
--- NOTE | 2019-01-16 12:14 | MORECARE ---
CASE MANAGEMENT DISCHARGE SUMMARY PATIENT: VIVIEN REYES SR UNIT: [id number] ADM DATE: 12/27/18 AGE: 63 : 57 SEX: M ROOM/BED: D.2237 AUTHOR: NOHEMIDOC PHYSICIAN: REFERRING PHYSICIAN: KEELY LOZANO MD DATE OF SERVICE: 01/16/19 Discharge Plan Patient Name: VIVIEN REYES Facility: [facility]:[place] : 1955 Planned Disposition: Anticipated Discharge Date: Discharge Date: Expected LOS: Initial Reviewer: [id number] Initial Review Date: 12/28/2018 Generated: 01/16/19 1:14 pm Comments DCP- Discharge Planning Updated by [id number]: Tala Rodriguez on 01/16/19 11:[address] CM met with patient, I informed him that [facility] was not going to accept him to home health and he states he lives with his step brother and his home is safe, but the neighborhood can have a lot of "going on". I spoke with him about LTACH and he refuses at this time. I spoke with Krystal at LTACH at [facility] and she did not feel [facility] would authorize admission. CM will continue to follow and assist with discharge planning/needs. DCP- Discharge Planning Updated by [id number]: Tala Rodriguez on 01/13/19 2:[address] Georgie with [facility] returned my call and states they cannot accept patient due to unsafe living conditions. She states that he does not live alone and their is "too much activity around his house." He will not be able to receive home health at this time. CM will continue to follow and assist with discharge planning/needs. DCP- Discharge Planning Updated by [email or web address]: Tala Rodriguez on 01/13/19 12:[address] Inpatient rehab stay has been denied by his insurance. He is ambulating 250 feet without assist. I discussed the availability of SNF and home health. He states he would like to go home with home health. I gave him a HELENE form and he chose [facility]. He states he has oxygen and nebulizer, he also has a trilogy at home and his step brother will take him home on discharge. I reminded him to have portable oxygen for discharge. He uses [facility] for DME. CM will continue to follow and assist with discharge planning/needs. DCP- Discharge Planning Updated by [id number]: Tala Rodriguez on 01/10/19 6:[address] CM met with patient. He states his discharge plan is to admit to inpatient rehab when discharged from acute care. He has a pending auth with [facility] for inpatient rehab at this time. CM will continue to follow and assist with discharge planning/needs. DCP- Discharge Planning Updated by [id number]: Jeannie Mccray on 01/06/19 5:[address] planning to go to inpatient rehab once more medically stable and chest tube is out. Rehab pre-screen ordered. CM will continue to follow and assist as needed with discharge planning / needs DCP- Discharge Planning Updated by [id number]: Jeannie Mccray on 12/28/18 1:[address] Patient Name: VIVIEN REYES Admission Status: Elective Accout number: [id number] Admission Date: 12-27-2018 : 1955 Admission Diagnosis: Attending: KEELY LOZANO Current LOS: 1 Anticipated DC Date: Planned Disposition: Primary Insurance: [facility] MEDICARE SOLUTIONS Discharge Planning Comments: CM met with patient at bedside after explaining CM role and obtaining verbal consent. Patient lives at home with his friend where he is independent with his care and plans to return there upon discharge. Patient feels this would be a safe discharge. CM discussed availability / needs of home health and medical equipment. Patient has home / portable 02 with [facility]. Patient denies any discharge needs at this time. Patient states he will have his family drive him home upon discharge. CM will continue to follow and assist as needed with discharge planning / needs. Gaming Investigator: Jeannie Mccray DCP- Discharge Planning Updated by [id number]: Tala Rodriguez on 12/28/18 6:[address] CM attempted to do initial admission assessment but the patient is not able to stay awake to answer questions. His speech is not clear and he is very hard to understand at this time. CM spoke to Charge nurse who reported they medicated him with Benadryl and they are having a hard time understanding him as well. Cm will try again at a later time when he is able to complete assessment. Riddhi Verdin RN, [facility] DCPIA - Discharge Planning Initial Assessment Updated by [id number]: Jeannie Mccray on 12/28/18 1:54 pm * Is the patient Alert and Oriented? No * How many steps to enter\\exit or inside your home? * PCP RAFAEL * Pharmacy [facility] * Preadmission Environment Home with Family * ADLs Independent * Other Equipment HOME & PORTABLE 02 * List name and contact numbers for known caregivers / representatives who currently or will assist patient after discharge: ALESIA FLORIAN - FRIEND - [phone] VIVIEN REYES - BROTHER - [phone] * Verbal permission to speak to the caregivers and representatives has been obtained from the patient. N/A * Community resources currently utilized None * Additional services required to return to the preadmission environment? No * Can the patient safely return to the preadmission environment? Yes * Has this patient been hospitalized within the prior 30 days at any hospital? Yes Coverage Notice Reviewer: [id number] Hudson Rodriguez Notice Issued Date-Time: 01/13/2019 13:13 Notice Type: Patient Choice Letter Notice Delivered To: Patient Relationship to Patient: Self Flipping Machine Operator Name: Delivery Method: HAND - Hand Delivered Shae Days: Prior Verbal Notification: Recipient Understood Notice: Yes Recipient Signature: Yes Med Rec Note Co-signed by Attending: Coverage Notice Comment: HELENE for [facility] or [facility] Last DP export: 01/13/19 3:01 Patient Name: VIVIEN REYES Page [id number] at 1214 All edits/amendments must be made on the electronic document DICTATION DATE: 01/16/19 1214 SEAPORT PLANNING MANAGER: LIEGH 01/16/19 1214 RPT#: [id number] DC DATE: STATUS: ADM IN [facility] [address] [place] [address] END OF REPORT
[2019-01-16 13:30] VITALS: BP 105/62
--- NOTE | 2019-01-16 14:11 | NUR ---
Nutrition follow-up: Diet: Regular PO intake 100% of meals Visited with pt during breakfast. Pt reports no issues with meals; filling out menus. Pt requested his HOB put down and a warm blanket; provided. RDN following.
--- NOTE | 2019-01-16 14:22 | NUR ---
OT NOTE: PT VERY LETHARGIC THIS AM. DIFFICULT TO AROUSE. ONCE PT WAS UP, REQUIRED APPROX 3-4 MIN OF EOB SITTING TO FULLY AWAKEN. AMB IWTH WALKER AND CGA TO SINK. PT ABLE TO PERFORM SINK BATH IWTH MOD ASSIST FOR LES AND PERINEAL AREA.. PT WAS ABLE TO PERFORM REMAINDER OF BATHWING WITH CGA FOR BALANCE. ABLE TO NATHEN GOWN WITH SET UP; MOD ASSIST WITH SOCKS. TOLERATED APPROX 5-7 MIN OF STANDING; AMBULATION THROUGHOUT HALLWAY GREATER THAN 100 FT WITH FREQ CUES TO STAY FOCUSED. PT EASILY DISTRACTABLE; 2 REST BREAKS REQUIRED, ALONG WITH WALKER, 02, AND DRAINAGE TUBE. RUBENS KAY, OTR/L
[2019-01-16 16:51] VITALS: BP 103/50
[2019-01-16 20:00] VITALS: BP 98/52
--- NOTE | 2019-01-16 20:00 | NUR ---
ASSESSMENT PER FLOWSHEET. SALINE LOCK PATENT LEFT UPPER ARM AND LEFT FOREARM. SITES X2 CLEAR.
--- NOTE | 2019-01-16 21:00 | NUR ---
MEDS PER MAY. RT CHEST TUBE IN PLACE CONNECTED TO GRAVITY. BI PAP AT BEDSIDE. HOB UP 30 DEGREES. O2 ON 2L/M PER NC.
--- NOTE | 2019-01-16 21:04 | NUR ---
OT NOTE: PT COMPLETED ADL MOB WITH SBA. PT COMPLETED STANDING WITH SBA. PT COMPLETED UE AROM AXS. PT COMPLETED HYGIENE TASK WITH MIN A. THANK YOU, IRIS PENALOZA
[2019-01-17] VITALS: BP 108/57
--- NOTE | 2019-01-17 | NUR ---
RESTING QUIETLY BI PAP ON PER RT TECH. SR UP X2 CALL LIGHT WITHIN REACH. PT ON FIRST STEP AIR BED.
--- NOTE | 2019-01-17 03:31 | NUR ---
EYES CLOSED RESPIRATIONS WITH EASE AND UNLABORED.
[2019-01-17 04:00] VITALS: BP 104/63
[2019-01-17 06:55] LABS: HEMATOCRIT 29.1 % (42.0-54.0); HEMOGLOBIN 8.7 g/dL (13.5-17.5); MCH 28.2 pg (26.0-34.0); MCHC 29.9 g/dL (31.0-37.0); MCV 94.2 fL (80.0-100.0); PLATELET COUNT 398 10x3/uL (130-400); RBC 3.09 10x6/uL (4.20-6.10); RDW 19.8 % (11.5-14.5); WBC 8.7 10x3/uL (4.8-10.8)
[2019-01-17 07:04] LABS: ANION GAP 9.2 mmol/L (8-16); CALCIUM 8.6 mg/dL (8.5-10.1); CARBON DIOXIDE 34.8 mmol/L (21.0-32.0); CREATININE - SERUM 2.2 mg/dL (0.6-1.3)
--- NOTE | 2019-01-17 07:43 | NUR ---
PT RESTING IN BED WITH EYES CLOSED EASILY AROUSED TO SPEECH, ALERT AND ORIENTED. RIGHT SIDE CHEST TUBE PRESENT PUTTING OUT PINK DRAINAGE. HOB ABOVE 30DEGREES. IV LOCATE TO LEFT FOREARM X 2 CURRENTLY SL. CURRENTLY RCVING 2L VIA NC. NO S/S OF DISTRESS AT THIS TIME, DENIES NEEDS, WILL CONT TO MONITOR.
[2019-01-17 07:48] LABS: EOSINOPHILS 26 % (0-7); LYMPHOCYTES 11 % (15-50); MONOCYTES 12 % (2-11); NEUTROPHILS 51 % (40-80); PLATELET ESTIMATE NORMAL
--- NOTE | 2019-01-17 07:48 | MORECARE ---
CASE MANAGEMENT DISCHARGE SUMMARY PATIENT: VIVIEN REYES SR UNIT: [id number] ADM DATE: 12/27/18 AGE: 63 : 57 SEX: M ROOM/BED: D.2237 AUTHOR: NOHEMIDOC PHYSICIAN: REFERRING PHYSICIAN: KEELY LOZANO MD DATE OF SERVICE: 01/17/19 Discharge Plan Patient Name: VIVIEN REYES Facility: [facility]:[place] : 1955 Planned Disposition: Anticipated Discharge Date: Discharge Date: Expected LOS: Initial Reviewer: [email or web address] Initial Review Date: 12/28/2018 Generated: 01/17/19 8:47 am Comments DCP- Discharge Planning Updated by [email or web address]: Tala Rodriguez on 01/16/19 11:[address] CM met with patient, I informed him that [facility] was not going to accept him to home health and he states he lives with his step brother and his home is safe, but the neighborhood can have a lot of "going on". I spoke with him about LTACH and he refuses at this time. I spoke with Krystal at LTACH at [facility] and she did not feel [facility] would authorize admission. CM will continue to follow and assist with discharge planning/needs. DCP- Discharge Planning Updated by [email or web address]: Tala Rodriguez on 01/13/19 2:[address] Georgie with [facility] returned my call and states they cannot accept patient due to unsafe living conditions. She states that he does not live alone and their is "too much activity around his house." He will not be able to receive home health at this time. CM will continue to follow and assist with discharge planning/needs. DCP- Discharge Planning Updated by [id number]: Tala Rodriguez on 01/13/19 12:[address] Inpatient rehab stay has been denied by his insurance. He is ambulating 250 feet without assist. I discussed the availability of SNF and home health. He states he would like to go home with home health. I gave him a HELENE form and he chose [facility]. He states he has oxygen and nebulizer, he also has a trilogy at home and his step brother will take him home on discharge. I reminded him to have portable oxygen for discharge. He uses [facility] for DME. CM will continue to follow and assist with discharge planning/needs. DCP- Discharge Planning Updated by [id number]: Tala Rodriguez on 01/10/19 6:[address] CM met with patient. He states his discharge plan is to admit to inpatient rehab when discharged from acute care. He has a pending auth with [facility] for inpatient rehab at this time. CM will continue to follow and assist with discharge planning/needs. DCP- Discharge Planning Updated by [id number]: Jeannie Mccray on 01/06/19 5:[address] planning to go to inpatient rehab once more medically stable and chest tube is out. Rehab pre-screen ordered. CM will continue to follow and assist as needed with discharge planning / needs DCP- Discharge Planning Updated by [id number]: Jeannie Mccray on 12/28/18 1:[address] Patient Name: VIVIEN REYES Admission Status: Elective Accout number: [id number] Admission Date: 12-27-2018 : 1955 Admission Diagnosis: Attending: KEELY LOZANO Current LOS: 1 Anticipated DC Date: Planned Disposition: Primary Insurance: [facility] MEDICARE SOLUTIONS Discharge Planning Comments: CM met with patient at bedside after explaining CM role and obtaining verbal consent. Patient lives at home with his friend where he is independent with his care and plans to return there upon discharge. Patient feels this would be a safe discharge. CM discussed availability / needs of home health and medical equipment. Patient has home / portable 02 with [facility]. Patient denies any discharge needs at this time. Patient states he will have his family drive him home upon discharge. CM will continue to follow and assist as needed with discharge planning / needs. Gymnastics Coach: eJannie Mccray DCP- Discharge Planning Updated by [email or web address]: Tala Rodriguez on 12/28/18 6:[address] CM attempted to do initial admission assessment but the patient is not able to stay awake to answer questions. His speech is not clear and he is very hard to understand at this time. CM spoke to Charge nurse who reported they medicated him with Benadryl and they are having a hard time understanding him as well. Cm will try again at a later time when he is able to complete assessment. Riddhi Verdin RN, [facility] DCPIA - Discharge Planning Initial Assessment Updated by [id number]: Jeannie Mccray on 12/28/18 1:54 pm * Is the patient Alert and Oriented? No * How many steps to enter\\exit or inside your home? * PCP RAFAEL * [facility] * Preadmission Environment Home with Family * ADLs Independent * Other Equipment HOME & PORTABLE 02 * List name and contact numbers for known caregivers / representatives who currently or will assist patient after discharge: ALESIA FLORIAN - FRIEND - [phone] VIVIEN REYES - BROTHER - [phone] * Verbal permission to speak to the caregivers and representatives has been obtained from the patient. N/A * Community resources currently utilized None * Additional services required to return to the preadmission environment? No * Can the patient safely return to the preadmission environment? Yes * Has this patient been hospitalized within the prior 30 days at any hospital? Yes External Providers External Provider: Odessa [facility] Next Contact Date: Service Request Date: Service Type: Resolution: Reviewer: Comments: Coverage Notice Reviewer: [id number] Hudson Rodriguez Notice Issued Date-Time: 01/13/2019 13:13 Notice Type: Patient Choice Letter Notice Delivered To: Patient Relationship to Patient: Self Print Press Operator Name: Delivery Method: HAND - Hand Delivered Shae Days: Prior Verbal Notification: Recipient Understood Notice: Yes Recipient Signature: Yes Med Rec Note Co-signed by Attending: Coverage Notice Comment: HEL[facility] for [facility] or [facility] Last DP export: 01/16/19 11:14 Patient Name: VIVIEN REYES Page [id number] at 0748 All edits/amendments must be made on the electronic document DICTATION DATE: 01/17/19746 QUALITY CONSULTANT: LEIGH 01/17/19746 RPT#: [id number] [place] DATE: STATUS: ADM IN [facility] [address] [place] [address] END OF REPORT
--- NOTE | 2019-01-17 08:00 | MORECARE ---
CASE MANAGEMENT DISCHARGE SUMMARY PATIENT: VIVIEN REYES SR UNIT: [id number] ADM DATE: 12/27/18 AGE: 63 : 57 SEX: M ROOM/BED: D.2237 AUTHOR: NOHEMI,DOC PHYSICIAN: REFERRING PHYSICIAN: KEELY LOZANO MD DATE OF SERVICE: 01/17/19 Discharge Plan Patient Name: VIVIEN REYES Facility: [facility]:[place] : 1955 Planned Disposition: Anticipated Discharge Date: Discharge Date: Expected LOS: Initial Reviewer: [email or web address] Initial Review Date: 12/28/2018 Generated: 01/17/19 9:00 am Comments DCP- Discharge Planning Updated by [id number]: Tala Rodriguez on 01/17/19 6:[address] Spoke with patient's brother yesterday here at the hospital and he states ok to send clinical to [facility]. States his brother does not want to go to a correction. I faxed clinical to [facility] in [place] and spoke with Krystal. CM will continue to follow and assist with discharge planning/needs. DCP- Discharge Planning Updated by [id number]: Tala Rodriguez on 01/16/19 11:[address] CM met with patient, I informed him that [facility] was not going to accept him to home health and he states he lives with his step brother and his home is safe, but the neighborhood can have a lot of "going on". I spoke with him about LTACH and he refuses at this time. I spoke with Krystal at LTACH at [facility] and she did not feel [facility] would authorize admission. CM will continue to follow and assist with discharge planning/needs. DCP- Discharge Planning Updated by [id number]: Tala Rodriguez on 01/13/19 2:[address] Georgie with [facility] returned my call and states they cannot accept patient due to unsafe living conditions. She states that he does not live alone and their is "too much activity around his house." He will not be able to receive home health at this time. CM will continue to follow and assist with discharge planning/needs. DCP- Discharge Planning Updated by [id number]: Tala Rodriguez on 01/13/19 12:[address] Inpatient rehab stay has been denied by his insurance. He is ambulating 250 feet without assist. I discussed the availability of SNF and home health. He states he would like to go home with home health. I gave him a HELENE form and he chose [facility]. He states he has oxygen and nebulizer, he also has a trilogy at home and his step brother will take him home on discharge. I reminded him to have portable oxygen for discharge. He uses [facility] for DME. CM will continue to follow and assist with discharge planning/needs. DCP- Discharge Planning Updated by [id number]: Tala Rodriguez on 01/10/19 6:[address] CM met with patient. He states his discharge plan is to admit to inpatient rehab when discharged from acute care. He has a pending auth with [facility] for inpatient rehab at this time. CM will continue to follow and assist with discharge planning/needs. DCP- Discharge Planning Updated by [id number]: Jeannie Mccray on 01/06/19 5:[address] planning to go to inpatient rehab once more medically stable and chest tube is out. Rehab pre-screen ordered. CM will continue to follow and assist as needed with discharge planning / needs DCP- Discharge Planning Updated by [email or web address]: Jeannie Mccray on 12/28/18 1:[address] Patient Name: VIVIEN REYES Admission Status: Elective Accout number: [id number] Admission Date: 12-27-2018 : 1955 Admission Diagnosis: Attending: KEELY LOZANO Current LOS: 1 Anticipated DC Date: Planned Disposition: Primary Insurance: [facility] [employer] Discharge Planning Comments: CM met with patient at bedside after explaining CM role and obtaining verbal consent. Patient lives at home with his friend where he is independent with his care and plans to return there upon discharge. Patient feels this would be a safe discharge. CM discussed availability / needs of home health and medical equipment. Patient has home / portable 02 with [facility]. Patient denies any discharge needs at this time. Patient states he will have his family drive him home upon discharge. CM will continue to follow and assist as needed with discharge planning / needs. Railroad Switchman: Jeannie Mccray DCP- Discharge Planning Updated by [email or web address]: Tala Rodriguez on 12/28/18 6:[address] CM attempted to do initial admission assessment but the patient is not able to stay awake to answer questions. His speech is not clear and he is very hard to understand at this time. CM spoke to Charge nurse who reported they medicated him with Benadryl and they are having a hard time understanding him as well. Cm will try again at a later time when he is able to complete assessment. Riddhi Verdin RN, [facility] DCPIA - Discharge Planning Initial Assessment Updated by [email or web address]: Jeannie Mccray on 12/28/18 1:54 pm * Is the patient Alert and Oriented? No * How many steps to enter\\exit or inside your home? * PCP RAFAEL * Pharmacy [facility] * Preadmission Environment Home with Family * ADLs Independent * Other Equipment HOME & PORTABLE 02 * List name and contact numbers for known caregivers / representatives who currently or will assist patient after discharge: ALESIA FLORIAN - FRIEND - [phone] VIVIEN REYES - BROTHER - [phone] * Verbal permission to speak to the caregivers and representatives has been obtained from the patient. N/A * Community resources currently utilized None * Additional services required to return to the preadmission environment? No * Can the patient safely return to the preadmission environment? Yes * Has this patient been hospitalized within the prior 30 days at any hospital? Yes Coverage Notice Reviewer: [id number] - Tala Rodriguez Notice Issued Date-Time: 01/13/2019 13:13 Notice Type: Patient Choice Letter Notice Delivered To: Patient Relationship to Patient: Self Metals Sales Representative Name: Delivery Method: HAND - Hand Delivered Shae Days: Prior Verbal Notification: Recipient Understood Notice: Yes Recipient Signature: Yes Med Rec Note Co-signed by Attending: Coverage Notice Comment: HELENE for [facility] or [facility] Last DP export: 01/17/19 6:48 Patient Name: VIVIEN REYES Page [id number] at 0800 All edits/amendments must be made on the electronic document DICTATION DATE: 01/17/19 0800 LAB INTERN: LEIGH 01/17/19 0800 RPT#: [id number] DC DATE: STATUS: ADM IN [facility] [address] [place] [address] END OF REPORT
[2019-01-17 08:34] VITALS: BP 108/63
--- NOTE | 2019-01-17 11:52 | NUR ---
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 He states the scars have been there for over 20 years and "they will be fine if everybody will leave it alone". Pt states there is no tenderness or pain, but assured me that he will notify his nurse if anything changes. He says he normally lays in bed shifted on his right side which relieves pressure from the area. He is on an air overlay mattress. Wound care will continue monitoring.
[2019-01-17 12:53] VITALS: BP 108/60
[2019-01-17 13:42] LABS: CKMB 1.5 U/L (0.0-3.6); CREATINE KINASE 44 UL (21-232)
[2019-01-17 13:43] LABS: TROPONIN-I 0.227 ng/mL (0.000-0.060)
[2019-01-17 17:02] VITALS: BP 109/62
[2019-01-17 19:41] LABS: CKMB 1.1 U/L (0.0-3.6); CREATINE KINASE 44 UL (21-232)
--- NOTE | 2019-01-17 20:00 | NUR ---
ASSESSMENT PER FLOWSHEET.IV SALINEK X2 TO LEFT ARM. BI PAP ON. PT ON FIRST STEP AIR BED SR UP X2 CALL LIGHT WITHIN REACH. HAYDE MAT IN USE. PT'S DINNER TRAY AT BEDSIDE HAS NOT BEEN TOUCHED. ASKED IF HUNGRY STATED YES. REHEATED FOOD TRAY REPOSITIONED IN BED FOR MEAL PLACED ON 2 L/M PER NC.
--- NOTE | 2019-01-17 20:30 | NUR ---
PT FED SELF MEAL TRAY ATE 80%.
[2019-01-17 20:46] VITALS: BP 123/62
--- NOTE | 2019-01-18 | NUR ---
EYES CLOSED RESPIRATIONS WITH EASE AND UNLABORED.
[2019-01-18 01:11] VITALS: BP 112/60
[2019-01-18 01:41] LABS: CKMB 1.2 U/L (0.0-3.6); CREATINE KINASE 41 UL (21-232)
[2019-01-18 01:43] LABS: TROPONIN-I 0.213 ng/mL (0.000-0.060)
[2019-01-18 05:43] VITALS: BP 124/64
[2019-01-18 06:16] LABS: BASOPHILS 0.7 % (0-2); HEMATOCRIT 29.7 % (42.0-54.0); HEMOGLOBIN 8.9 g/dL (13.5-17.5); IMMATURE GRANULOCYTES 0.2 % (0-5); MCH 28.4 pg (26.0-34.0); MCV 94.9 fL (80.0-100.0); MEAN PLATELET VOLUME 9.2 fL (7.4-10.4); MONOCYTES 8.5 % (2-11); NEUTROPHILS 61.6 % (40-80); PLATELET COUNT 401 10x3/uL (130-400); RBC 3.13 10x6/uL (4.20-6.10); RDW 19.8 % (11.5-14.5); WBC 9.2 10x3/uL (4.8-10.8)
[2019-01-18 06:37] LABS: ANION GAP 11.9 mmol/L (8-16); CALCIUM 8.4 mg/dL (8.5-10.1); CARBON DIOXIDE 32.1 mmol/L (21.0-32.0); CREATININE - SERUM 2.3 mg/dL (0.6-1.3)
--- NOTE | 2019-01-18 07:28 | NUR ---
PT RESTING IN BED WITH EYES OPEN CURRENTLY GETTING BREATHING TREATMENT. IV LOCATED TO LEFT FOREARM CURRENTLY SL. NO S/S OF DISTRESS NOTED AT THIS TIME, DENIES NEEDS, WILL CONT TO MONITOR.
[2019-01-18 08:46] VITALS: BP 109/66
--- NOTE | 2019-01-18 11:30 | NUR ---
INFORMED OF AMMONIA OF 70.
--- NOTE | 2019-01-18 11:40 | NUR ---
SPOKE TO PUMA LARSON ABOUT DOSING OF LACTULOSE, WAS SUPOSE TO BE 3X TODAY BUT WAS ONLY ON THE EMAR FOR 2X TODAY, SHE TOLD ME I COULD GO AHEAD AND ADJUST TO GIVE THAT 3RD DOSE.
[2019-01-18 12:10] VITALS: BP 117/65
--- NOTE | 2019-01-18 15:22 | NUR ---
DRESSING CHANGED TO RIGHT SIDE WHERE PREVIOUS CHEST TUBE WAS REMOVED.
[2019-01-18 16:35] VITALS: BP 109/58
[2019-01-18 20:00] VITALS: BP 133/64
--- NOTE | 2019-01-18 20:00 | NUR ---
ASSESSMENT PER FLOWSHEET. IV SALINE X2 LEFT ARM SITES CLEAR. PT ON O2 AT 2L/M PER NC. DRSG TO RT CHEST AREA OLD CT SITE C/D/I.PT ON FIRST STEP AIR BED. VOIDS WELL IN URINAL.
--- NOTE | 2019-01-18 21:45 | NUR ---
MEDS GIVEN PER MAY. PT NOW ON BIPAP MACHINE.
--- NOTE | 2019-01-19 | NUR ---
INC STOOL COMPLETE BEDBATH WITH LINENS CHANGED.
--- NOTE | 2019-01-19 03:46 | NUR ---
EYES CLOSED RESPIRATIONS WITH EASE AND UNLABORED.
[2019-01-19 04:00] VITALS: BP 104/69
[2019-01-19 06:34] LABS: BASOPHILS 0.4 % (0-2); EOSINOPHILS 16.8 % (0-7); HEMATOCRIT 29.2 % (42.0-54.0); HEMOGLOBIN 8.6 g/dL (13.5-17.5); IMMATURE GRANULOCYTES 0.3 % (0-5); LYMPHOCYTES 8.6 % (15-50); MCH 28.3 pg (26.0-34.0); MCHC 29.5 g/dL (31.0-37.0); MCV 96.1 fL (80.0-100.0); MEAN PLATELET VOLUME 9.1 fL (7.4-10.4); MONOCYTES 11.5 % (2-11); NEUTROPHILS 62.4 % (40-80); PLATELET COUNT 416 10x3/uL (130-400); RBC 3.04 10x6/uL (4.20-6.10); RDW 19.4 % (11.5-14.5); WBC 9.9 10x3/uL (4.8-10.8)
[2019-01-19 07:14] LABS: CALCIUM 8.9 mg/dL (8.5-10.1); CARBON DIOXIDE 31.1 mmol/L (21.0-32.0); POTASSIUM - SERUM 4.1 mmol/L (3.5-5.1)
--- NOTE | 2019-01-19 07:38 | NUR ---
PT RESTING. RR EVEN AND UNLABORED. DENIES NEEDS OR PAIN AT THIS TIME. AXO. BED IN LOWEST POSITION. CALL LIGHT WITHIN REACH.
[2019-01-19 08:24] VITALS: BP 115/74
[2019-01-19] MEDS ORDERED: PULMICORT0.5 MG/21 UPD (11:06)
[2019-01-19] MEDS ORDERED: CHRONULAC30 ML PO (11:06)
[2019-01-19] MEDS ORDERED: ALDACTONE25 MG PO (11:07)
--- NOTE | 2019-01-19 11:25 | MORECARE ---
CASE MANAGEMENT DISCHARGE SUMMARY PATIENT: VIVIEN REYES SR UNIT: [id number] ADM DATE: 12/27/18 AGE: 63 : 57 SEX: M ROOM/BED: D.2237 AUTHOR: NOHEMI,DOC PHYSICIAN: REFERRING PHYSICIAN: KEELY LOZANO MD DATE OF SERVICE: 01/19/19 Discharge Plan Patient Name: VIVIEN REYES Facility: [facility]:[place] : 1955 Planned Disposition: Anticipated Discharge Date: Discharge Date: Expected LOS: Initial Reviewer: [email or web address] Initial Review Date: 12/28/2018 Generated: 01/19/19 12:24 pm Comments DCP- Discharge Planning Updated by [id number]: Tala Rodriguez on 01/17/19 6:[address] Spoke with patient's brother yesterday here at the hospital and he states ok to send clinical to [facility]. States his brother does not want to go to a [facility]. I faxed clinical to [facility] in [place] and spoke with Krystal. CM will continue to follow and assist with discharge planning/needs. DCP- Discharge Planning Updated by [id number]: Tala Rodriguez on 01/16/19 11:[address] CM met with patient, I informed him that [facility] was not going to accept him to home health and he states he lives with his step brother and his home is safe, but the neighborhood can have a lot of "going on". I spoke with him about LTACH and he refuses at this time. I spoke with Krystal at LTACH at [facility] and she did not feel [facility] would authorize admission. CM will continue to follow and assist with discharge planning/needs. DCP- Discharge Planning Updated by [id number]: Tala Rodriguez on 01/13/19 2:[address] Georgie with [facility] returned my call and states they cannot accept patient due to unsafe living conditions. She states that he does not live alone and their is "too much activity around his house." He will not be able to receive home health at this time. CM will continue to follow and assist with discharge planning/needs. DCP- Discharge Planning Updated by [id number]: Tala Rodriguez on 01/13/19 12:[address] Inpatient rehab stay has been denied by his insurance. He is ambulating 250 feet without assist. I discussed the availability of SNF and home health. He states he would like to go home with home health. I gave him a HELENE form and he chose [facility]. He states he has oxygen and nebulizer, he also has a trilogy at home and his step brother will take him home on discharge. I reminded him to have portable oxygen for discharge. He uses [facility] for DME. CM will continue to follow and assist with discharge planning/needs. DCP- Discharge Planning Updated by [email or web address]: Tala Rodriguez on 01/10/19 6:[address] CM met with patient. He states his discharge plan is to admit to inpatient rehab when discharged from acute care. He has a pending auth with [facility] for inpatient rehab at this time. CM will continue to follow and assist with discharge planning/needs. DCP- Discharge Planning Updated by [id number]: Jeannie Mccray on 01/06/19 5:[address] planning to go to inpatient rehab once more medically stable and chest tube is out. Rehab pre-screen ordered. CM will continue to follow and assist as needed with discharge planning / needs DCP- Discharge Planning Updated by [email or web address]: Jeannie Mccray on 12/28/18 1:[address] Patient Name: VIVIEN REYES Admission Status: Elective Accout number: [id number] Admission Date: 12-27-2018 : 1955 Admission Diagnosis: Attending: KEELY LOZANO Current LOS: 1 Anticipated DC Date: Planned Disposition: Primary Insurance: [facility] [employer] Discharge Planning Comments: CM met with patient at bedside after explaining CM role and obtaining verbal consent. Patient lives at home with his friend where he is independent with his care and plans to return there upon discharge. Patient feels this would be a safe discharge. CM discussed availability / needs of home health and medical equipment. Patient has home / portable 02 with [facility]. Patient denies any discharge needs at this time. Patient states he will have his family drive him home upon discharge. CM will continue to follow and assist as needed with discharge planning / needs. Director Automotive: Jeannie Mccray DCP- Discharge Planning Updated by [email or web address]: Tala Rodriguez on 12/28/18 6:[address] CM attempted to do initial admission assessment but the patient is not able to stay awake to answer questions. His speech is not clear and he is very hard to understand at this time. CM spoke to Charge nurse who reported they medicated him with Benadryl and they are having a hard time understanding him as well. Cm will try again at a later time when he is able to complete assessment. Riddhi Verdin RN, [facility] DCPIA - Discharge Planning Initial Assessment Updated by [email or web address]: Jeannie Mccray on 12/28/18 1:54 pm * Is the patient Alert and Oriented? No * How many steps to enter\\exit or inside your home? * PCP RAFAEL * Pharmacy [facility] * Preadmission Environment Home with Family * ADLs Independent * Other Equipment HOME & PORTABLE 02 * List name and contact numbers for known caregivers / representatives who currently or will assist patient after discharge: ALESIA FLORIAN - FRIEND - [phone] VIVIEN REYES - BROTHER - [phone] * Verbal permission to speak to the caregivers and representatives has been obtained from the patient. N/A * Community resources currently utilized None * Additional services required to return to the preadmission environment? No * Can the patient safely return to the preadmission environment? Yes * Has this patient been hospitalized within the prior 30 days at any hospital? Yes External Providers External Provider: [facility] Next Contact Date: Service Request Date: Service Type: Resolution: Reviewer: Comments: Coverage Notice Reviewer: [id number] - Tala Rodriguez Notice Issued Date-Time: 01/13/2019 13:13 Notice Type: Patient Choice Letter Notice Delivered To: Patient Relationship to Patient: Self Aerial Gunner Superintendent Name: Delivery Method: HAND - Hand Delivered Shae Days: Prior Verbal Notification: Recipient Understood Notice: Yes Recipient Signature: Yes Med Rec Note Co-signed by Attending: Coverage Notice Comment: [facility] for [facility] or [facility] Last DP export: 01/17/19 7:00 Patient Name: VIVIEN REYES Page [id number] at 1125 All edits/amendments must be made on the electronic document DICTATION DATE: 01/19/19 1124 DRY CLEANING MACHINE OPERATOR: LEIGH 01/19/19 1124 RPT#: [id number] DC DATE: STATUS: ADM IN [facility] [address] [place] [address] END OF REPORT
[2019-01-19 11:51] VITALS: BP 116/63
--- NOTE | 2019-01-19 12:21 | MORECARE ---
CASE MANAGEMENT DISCHARGE SUMMARY PATIENT: VIVIEN REYES SR UNIT: [id number] ADM DATE: 12/27/18 AGE: 63 : 57 SEX: M ROOM/BED: D.2237 AUTHOR: NOHEMI,DOC PHYSICIAN: REFERRING PHYSICIAN: KEELY LOZANO MD DATE OF SERVICE: 01/19/19 Discharge Plan Patient Name: VIVIEN REYES Facility: [facility]:[place] : 1955 Planned Disposition: Anticipated Discharge Date: Discharge Date: Expected LOS: Initial Reviewer: [email or web address] Initial Review Date: 12/28/2018 Generated: 01/19/19 1:20 pm Comments DCP- Discharge Planning Updated by [id number]: Tala Rodriguez on 01/19/19 11:[address] Received discharge orders. [facility] declined. I have referred to [facility], patient states he doesn't care who he uses. I spoke with his brother, Imer, he states he will pick him up today and bring his portable oxygen. Patient and family in agreement to discharge plan. Awaiting to hear back from [facility]. CM will continue to follow and assist with discharge planning/needs. DCP- Discharge Planning Updated by [id number]: Tala Rodriguez on 01/17/19 6:[address] Spoke with patient's brother yesterday here at the hospital and he states [facility] States his brother does not want to go to a prison. I faxed clinical to [facility] in [place] and spoke with Krystal. CM will continue to follow and assist with discharge planning/needs. DCP- Discharge Planning Updated by [email or web address]: Tala Rordiguez on 01/16/19 11:[address] CM met with patient, I informed him that [facility] was not going to accept him to home health and he states he lives with his step brother and his home is safe, but the neighborhood can have a lot of "going on". I spoke with him about LTACH and he refuses at this time. I spoke with Krystla at LTACH at [facility] and she did not feel [facility] would authorize admission. CM will continue to follow and assist with discharge planning/needs. DCP- Discharge Planning Updated by [id number]: Tala Rodriguez on 01/13/19 2:[address] Georgie with [facility] returned my call and states they cannot accept patient due to unsafe living conditions. She states that he does not live alone and their is "too much activity around his house." He will not be able to receive home health at this time. CM will continue to follow and assist with discharge planning/needs. DCP- Discharge Planning Updated by [email or web address]: Tala Rodriguez on 01/13/19 12:[address] Inpatient rehab stay has been denied by his insurance. He is ambulating 250 feet without assist. I discussed the availability of SNF and home health. He states he would like to go home with home health. I gave him a HELENE form and he chose [facility]. He states he has oxygen and nebulizer, he also has a trilogy at home and his step brother will take him home on discharge. I reminded him to have portable oxygen for discharge. He uses [facility] for DME. CM will continue to follow and assist with discharge planning/needs. DCP- Discharge Planning Updated by [email or web address]: Tala Rodriguez on 01/10/19 6:[address] CM met with patient. He states his discharge plan is to admit to inpatient rehab when discharged from acute care. He has a pending auth with [facility] for inpatient rehab at this time. CM will continue to follow and assist with discharge planning/needs. DCP- Discharge Planning Updated by [id number]: Jeannie Mccray on 01/06/19 5:[address] planning to go to inpatient rehab once more medically stable and chest tube is out. Rehab pre-screen ordered. CM will continue to follow and assist as needed with discharge planning / needs DCP- Discharge Planning Updated by [email or web address]: Jeannie Mccray on 12/28/18 1:[address] Patient Name: VIVIEN REYES Admission Status: Elective Accout number: [id number] Admission Date: 12-27-2018 : 1955 Admission Diagnosis: Attending: KEELY LOZANO Current LOS: 1 Anticipated DC Date: Planned Disposition: Primary Insurance: [facility] [employer] Discharge Planning Comments: CM met with patient at bedside after explaining CM role and obtaining verbal consent. Patient lives at home with his friend where he is independent with his care and plans to return there upon discharge. Patient feels this would be a safe discharge. CM discussed availability / needs of home health and medical equipment. Patient has home / portable 02 with [facility]. Patient denies any discharge needs at this time. Patient states he will have his family drive him home upon discharge. CM will continue to follow and assist as needed with discharge planning / needs. And Drying Supervisor Cooking Casing: Jeannie Mccray DCP- Discharge Planning Updated by [email or web address]: Tala Rodriguez on 12/28/18 6:[address] CM attempted to do initial admission assessment but the patient is not able to stay awake to answer questions. His speech is not clear and he is very hard to understand at this time. CM spoke to Charge nurse who reported they medicated him with Benadryl and they are having a hard time understanding him as well. Cm will try again at a later time when he is able to complete assessment. Riddhi Verdin RN, [facility] DCPIA - Discharge Planning Initial Assessment Updated by [id number]: Jeannie Mccray on 12/28/18 1:54 pm * Is the patient Alert and Oriented? No * How many steps to enter\\exit or inside your home? * PCP RAFAEL * Pharmacy [facility] * Preadmission Environment Home with Family * ADLs Independent * Other Equipment HOME & PORTABLE 02 * List name and contact numbers for known caregivers / representatives who currently or will assist patient after discharge: ALESIA FLORIAN - FRIEND - [phone] VIVIEN REYES - BROTHER - [phone] * Verbal permission to speak to the caregivers and representatives has been obtained from the patient. N/A * Community resources currently utilized None * Additional services required to return to the preadmission environment? No * Can the patient safely return to the preadmission environment? Yes * Has this patient been hospitalized within the prior 30 days at any hospital? Yes Coverage Notice Reviewer: [email or web address] - Tala Rodriguez Notice Issued Date-Time: 01/13/2019 13:13 Notice Type: Patient Choice Letter Notice Delivered To: Patient Relationship to Patient: Self High Pressure Operator Name: Delivery Method: HAND - Hand Delivered Shae Days: Prior Verbal Notification: Recipient Understood Notice: Yes Recipient Signature: Yes Med Rec Note Co-signed by Attending: Coverage Notice Comment: HELENE for [facility] or [facility] Reviewer: [id number] Hudson Rodriguez Notice Issued Date-Time: 01/19/2019 12:08 Notice Type: IM Discharge Notice Notice Delivered To: Patient Relationship to Patient: Self High Pressure Operator Name: Delivery Method: HAND - Hand Delivered Shae Days: Prior Verbal Notification: Recipient Understood Notice: Yes Recipient Signature: Yes Med Rec Note Co-signed by Attending: Coverage Notice Comment: IMM explained, signed, given, copy placed in MR Last DP export: 01/19/19 10:25 Patient Name: VIVIEN REYES Page [id number] at 1221 All edits/amendments must be made on the electronic document DICTATION DATE: 01/19/19 1220 CAN DRAGGER: LEIGH 01/19/19 1220 RPT#: [id number] DC DATE: STATUS: ADM IN [facility] [address] [place] [address] END OF REPORT
--- NOTE | 2019-01-19 15:01 | MORECARE ---
CASE MANAGEMENT DISCHARGE SUMMARY PATIENT: VIVIEN REYES SR UNIT: [id number] ADM DATE: 12/27/18 AGE: 63 : 57 SEX: M ROOM/BED: D.2237 AUTHOR: NOHEMI,DOC PHYSICIAN: REFERRING PHYSICIAN: KEELY LOZANO MD DATE OF SERVICE: 01/19/19 Discharge Plan Patient Name: VIVIEN REYES Facility: [facility]:[place] : 1955 Planned Disposition: Anticipated Discharge Date: Discharge Date: Expected LOS: Initial Reviewer: [email or web address] Initial Review Date: 12/28/2018 Generated: 01/19/19 4:01 pm Comments DCP- Discharge Planning Updated by [email or web address]: Tala Rodriguez on 01/19/19 1:[address] Angel with [facility] has returned call and states they cannot accept patient at this time. States they have discharged him before because of "ongoing drug problems". I called Shaw with and informed her and she states she will ask her senior windows administrator and return my call. I informed Dr. Gonzalez and he states to have patient f/u with Dr. Herrera on Wednesday. I informed care team coordinator scheduler and she is making a f/u for him and cancelling house calls. Home today with brother. DCP- Discharge Planning Updated by [email or web address]: Tala Rodriguez on 01/19/19 11:[address] Received discharge orders. [facility] have declined. I have referred to [facility], patient states he doesn't care who he uses. I spoke with his brother, Imer, he states he will pick him up today and bring his portable oxygen. Patient and family in agreement to discharge plan. Awaiting to hear back from [facility]. CM will continue to follow and assist with discharge planning/needs. DCP- Discharge Planning Updated by [id number]: Tala Rodriguez on 01/17/19 6:[address] Spoke with patient's brother yesterday here at the hospital and he states ok to send clinical to [facility]. States his brother does not want to go to a senior living. I faxed clinical to [facility] in [place] and spoke with Krystal. CM will continue to follow and assist with discharge planning/needs. DCP- Discharge Planning Updated by [id number]: Tala Rodriguez on 01/16/19 11:[address] CM met with patient, I informed him that [facility] was not going to accept him to home health and he states he lives with his step brother and his home is safe, but the neighborhood can have a lot of "going on". I spoke with him about LTACH and he refuses at this time. I spoke with Krystal at LTACH at [facility] and she did not feel [facility] would authorize admission. CM will continue to follow and assist with discharge planning/needs. DCP- Discharge Planning Updated by [email or web address]: Tala Rodriguez on 01/13/19 2:[address] Georgie with [facility] returned my call and states they cannot accept patient due to unsafe living conditions. She states that he does not live alone and their is "too much activity around his house." He will not be able to receive home health at this time. CM will continue to follow and assist with discharge planning/needs. DCP- Discharge Planning Updated by [id number]: Tala Rodriguez on 01/13/19 12:[address] Inpatient rehab stay has been denied by his insurance. He is ambulating 250 feet without assist. I discussed the availability of SNF and home health. He states he would like to go home with home health. I gave him a HELENE form and he chose [facility]. He states he has oxygen and nebulizer, he also has a trilogy at home and his step brother will take him home on discharge. I reminded him to have portable oxygen for discharge. He uses [facility] for DME. CM will continue to follow and assist with discharge planning/needs. DCP- Discharge Planning Updated by [id number]: Tala Cordobapetty on 01/10/19 6:[address] CM met with patient. He states his discharge plan is to admit to inpatient rehab when discharged from acute care. He has a pending auth with [facility] for inpatient rehab at this time. CM will continue to follow and assist with discharge planning/needs. DCP- Discharge Planning Updated by [email or web address]: Jeannie Mccray on 01/06/19 5:[address] planning to go to inpatient rehab once more medically stable and chest tube is out. Rehab pre-screen ordered. CM will continue to follow and assist as needed with discharge planning / needs DCP- Discharge Planning Updated by [id number]: Jeannie Mccray on 12/28/18 1:[address] Patient Name: VIVIEN REYES Admission Status: Elective Accout number: [id number] Admission Date: 12-27-2018 : 1955 Admission Diagnosis: Attending: KEELY LOZANO Current LOS: 1 Anticipated DC Date: Planned Disposition: Primary Insurance: [facility] MEDICARE [employer]UTIONS Discharge Planning Comments: CM met with patient at bedside after explaining CM role and obtaining verbal consent. Patient lives at home with his friend where he is independent with his care and plans to return there upon discharge. Patient feels this would be a safe discharge. CM discussed availability / needs of home health and medical equipment. Patient has home / portable 02 with [facility]. Patient denies any discharge needs at this time. Patient states he will have his family drive him home upon discharge. CM will continue to follow and assist as needed with discharge planning / needs. Business Systems Developer: Jeannie Mccray DCP- Discharge Planning Updated by [id number]: Tala Rodriguez on 12/28/18 6:[address] CM attempted to do initial admission assessment but the patient is not able to stay awake to answer questions. His speech is not clear and he is very hard to understand at this time. CM spoke to Charge nurse who reported they medicated him with Benadryl and they are having a hard time understanding him as well. Cm will try again at a later time when he is able to complete assessment. Riddhi Verdin RN, [facility] DCPIA - Discharge Planning Initial Assessment Updated by [id number]: Jeannie Mccray on 12/28/18 1:54 pm * Is the patient Alert and Oriented? No * How many steps to enter\\exit or inside your home? * PCP [facility]FA[facility] * Pharmacy [facility] * Preadmission Environment Home with Family * ADLs Independent * Other Equipment HOME & PORTABLE 02 * List name and contact numbers for known caregivers / representatives who currently or will assist patient after discharge: ALESIA FLORIAN - FRIEND - [phone] VIVIEN REYES - BROTHER - [phone] * Verbal permission to speak to the caregivers and representatives has been obtained from the patient. N/A * Community resources currently utilized None * Additional services required to return to the preadmission environment? No * Can the patient safely return to the preadmission environment? Yes * Has this patient been hospitalized within the prior 30 days at any hospital? Yes Coverage Notice Reviewer: [id number] Hudson Rodriguez Notice Issued Date-Time: 01/13/2019 13:13 Notice Type: Patient Choice Letter Notice Delivered To: Patient Relationship to Patient: Self Manager Requirements Name: Delivery Method: HAND - Hand Delivered Shae Days: Prior Verbal Notification: Recipient Understood Notice: Yes Recipient Signature: Yes Med Rec Note Co-signed by Attending: Coverage Notice Comment: [facility] for [facility] or [facility] Reviewer: [email or web address] Hudson Rodriguez Notice Issued Date-Time: 01/19/2019 12:08 Notice Type: IM Discharge Notice Notice Delivered To: Patient Relationship to Patient: Self Manager Requirements Name: Delivery Method: HAND - Hand Delivered Shae Days: Prior Verbal Notification: Recipient Understood Notice: Yes Recipient Signature: Yes Med Rec Note Co-signed by Attending: Coverage Notice Comment: IMM explained, signed, given, copy placed in MR Last DP export: 01/19/19 11:21 Patient Name: VIVIEN REYES Page [id number] at 1501 All edits/amendments must be made on the electronic document DICTATION DATE: 01/19/191500 SPOT CLEANER: LEIGH 01/19/191500 RPT#: [id number] DC DATE: STATUS: ADM IN [facility] [address] [place] [address] END OF REPORT
--- NOTE | 2019-01-19 15:23 | NUR ---
WOUND TO RIGHT CHEST CHANGED. PT INSTRUCTED AND EDUCATED ON PROPER WOUND CARE AT HOME. PT VERBALIZED UNDERSTANDING AND NO FURTHER QUESTIONS AT THIS TIME.
--- NOTE | 2019-01-19 15:25 | MORECARE ---
CASE MANAGEMENT DISCHARGE SUMMARY PATIENT: VIVIEN REYES SR UNIT: [id number] ADM DATE: 12/27/18 AGE: 63 : 57 SEX: M ROOM/BED: D.2237 AUTHOR: NOHEMI,DOC PHYSICIAN: REFERRING PHYSICIAN: KEELY LOZANO MD DATE OF SERVICE: 01/19/19 Discharge Plan Patient Name: VIVIEN REYES Facility: [facility]:[place] : 1955 Planned Disposition: Anticipated Discharge Date: Discharge Date: Expected LOS: Initial Reviewer: [id number] Initial Review Date: 12/28/2018 Generated: 01/19/19 4:24 pm Comments DCP- Discharge Planning Updated by [id number]: Tala Rodriguez on 01/19/19 1:[address] Angel with [facility] has returned call and states they cannot accept patient at this time. States they have discharged him before because of "ongoing drug problems". I called Shaw with [facility] and informed her and she states she will ask her infrastructure administrator and return my call. I informed Dr. Gonzalez and he states to have patient f/u with Dr. Herrera on Wednesday. I informed spa coordinator and she is making a f/u for him and cancelling house calls. Home today with brother. DCP- Discharge Planning Updated by [id number]: Tala Rodriguez on 01/19/19 11:[address] Received discharge orders. [facility] have declined. I have referred to [facility], patient states he doesn't care who he uses. I spoke with his brother, Imer, he states he will pick him up today and bring his portable oxygen. Patient and family in agreement to discharge plan. Awaiting to hear back from [facility]. CM will continue to follow and assist with discharge planning/needs. DCP- Discharge Planning Updated by [email or web address]: Tala Rodriguez on 01/17/19 6:[address] Spoke with patient's brother yesterday here at the hospital and he states ok to [facility] clinical [facility]. States his brother does not want to go to a long-term. I faxed clinical to [facility] in [place] and spoke with Krystal. CM will continue to follow and assist with discharge planning/needs. DCP- Discharge Planning Updated by [email or web address]: Tala Rodriguez on 01/16/19 11:[address] CM met with patient, I informed him that [facility] was not going to accept him to home health and he states he lives with his step brother and his home is safe, but the neighborhood can have a lot of "going on". I spoke with him about LTACH and he refuses at this time. I spoke with Krystal at LTACH at [facility] and she did not feel [facility] would authorize admission. CM will continue to follow and assist with discharge planning/needs. DCP- Discharge Planning Updated by [id number]: Tala Rodriguez on 01/13/19 2:[address] Georgie with [facility] returned my call and states they cannot accept patient due to unsafe living conditions. She states that he does not live alone and their is "too much activity around his house." He will not be able to receive home health at this time. CM will continue to follow and assist with discharge planning/needs. DCP- Discharge Planning Updated by [id number]: Tala Rodriguez on 01/13/19 12:[address] Inpatient rehab stay has been denied by his insurance. He is ambulating 250 feet without assist. I discussed the availability of SNF and home health. He states he would like to go home with home health. I gave him a HELENE form and he chose [facility]. He states he has oxygen and nebulizer, he also has a trilogy at home and his step brother will take him home on discharge. I reminded him to have portable oxygen for discharge. He uses [facility] for DME. CM will continue to follow and assist with discharge planning/needs. DCP- Discharge Planning Updated by [id number]: Tala Cordobapetty on 01/10/19 6:[address] CM met with patient. He states his discharge plan is to admit to inpatient rehab when discharged from acute care. He has a pending auth with [facility] for inpatient rehab at this time. CM will continue to follow and assist with discharge planning/needs. DCP- Discharge Planning Updated by [id number]: Jeannie Mccray on 01/06/19 5:[address] planning to go to inpatient rehab once more medically stable and chest tube is out. Rehab pre-screen ordered. CM will continue to follow and assist as needed with discharge planning / needs DCP- Discharge Planning Updated by [email or web address]: Jeannie Mccray on 12/28/18 1:[address] Patient Name: VIVIEN REYES Admission Status: Elective Accout number: [id number] Admission Date: 12-27-2018 : 1955 Admission Diagnosis: Attending: KEELY LOZANO Current LOS: 1 Anticipated DC Date: Planned Disposition: Primary Insurance: [facility] MEDICARE SOLUTIONS Discharge Planning Comments: CM met with patient at bedside after explaining CM role and obtaining verbal consent. Patient lives at home with his friend where he is independent with his care and plans to return there upon discharge. Patient feels this would be a safe discharge. CM discussed availability / needs of home health and medical equipment. Patient has home / portable 02 with [facility]. Patient denies any discharge needs at this time. Patient states he will have his family drive him home upon discharge. CM will continue to follow and assist as needed with discharge planning / needs. Outside Plant Technician: Jeannie Mccray DCP- Discharge Planning Updated by [id number]: Tala Rodriguez on 12/28/18 6:[address] CM attempted to do initial admission assessment but the patient is not able to stay awake to answer questions. His speech is not clear and he is very hard to understand at this time. CM spoke to Charge nurse who reported they medicated him with Benadryl and they are having a hard time understanding him as well. Cm will try again at a later time when he is able to complete assessment. Riddhi Verdin RN, [facility] DCPIA - Discharge Planning Initial Assessment Updated by [email or web address]: Jeannie Mccray on 12/28/18 1:54 pm * Is the patient Alert and Oriented? No * How many steps to enter\\exit or inside your home? * PCP [facility] * Pharmacy [facility] * Preadmission Environment Home with Family * ADLs Independent * Other Equipment HOME & PORTABLE 02 * List name and contact numbers for known caregivers / representatives who currently or will assist patient after discharge: ALESIA FLORIAN - FRIEND - [phone] VIVIEN REYES - BROTHER - [phone] * Verbal permission to speak to the caregivers and representatives has been obtained from the patient. N/A * Community resources currently utilized None * Additional services required to return to the preadmission environment? No * Can the patient safely return to the preadmission environment? Yes * Has this patient been hospitalized within the prior 30 days at any hospital? Yes External Providers External Provider: [facility] Next Contact Date: Service Request Date: Service Type: Resolution: Reviewer: Comments: Coverage Notice Reviewer: [id number] Rodriguez Notice Issued Date-Time: 01/13/2019 13:13 Notice Type: Patient Choice Letter Notice Delivered To: Patient Relationship to Patient: Self Tire Specialist Name: Delivery Method: HAND - Hand Delivered Shae Days: Prior Verbal Notification: Recipient Understood Notice: Yes Recipient Signature: Yes Med Rec Note Co-signed by Attending: Coverage Notice Comment: [facility] for [facility] Reviewer: [id number] Rodriguez Notice Issued Date-Time: 01/19/2019 12:08 Notice Type: IM Discharge Notice Notice Delivered To: Patient Relationship to Patient: Self Tire Specialist Name: Delivery Method: HAND - Hand Delivered Shae Days: Prior Verbal Notification: Recipient Understood Notice: Yes Recipient Signature: Yes Med Rec Note Co-signed by Attending: Coverage Notice Comment: IMM explained, signed, given, copy placed in MR Last DP export: 01/19/19 2:01 Patient Name: VIVIEN REYES Page [id number] at 1525 All edits/amendments must be made on the electronic document DICTATION DATE: 01/19/191523 CADDY/CADDIE SUPERVISOR: LEIGH 01/19/191523 RPT#: [id number] DC DATE: STATUS: ADM IN [facility] [address] [place] [address] END OF REPORT
--- NOTE | 2019-01-19 16:35 | NUR ---
D/C INSTRUCTIONS REVIEWED WITH PT AND FAMILY. VERBALIZED UNDERSTANDING AND NO FURTHER QUESTIONS AT THIS TIME. PT ASSISTED WITH DRESSING HIMSELF. SWITCHED TO PERSONAL O2. PT STATED HE HAD ENOUGH OXYGEN AT HOME TO LAST HIM. BOTH IVS D/C WITH CATHETER TIP INTACT. DRESSINGS PLACED TO BOTH SITES, CDI. PT LEFT WITH ALL BELONGINGS TO PERSONAL VEHICLE.
--- NOTE | 2019-01-20 08:00 | MORECARE ---
CASE MANAGEMENT DISCHARGE SUMMARY PATIENT: VIVIEN REYES SR UNIT: [id number] ADM DATE: 12/27/18 AGE: 63 : 57 SEX: M ROOM/BED: D.2237 AUTHOR: CHARO SONG PHYSICIAN: REFERRING PHYSICIAN: KEELY LOZANO MD DATE OF SERVICE: 01/20/19 Discharge Plan Patient Name: VIVIEN REYES Facility: [facility]:[place] : 1955 Planned Disposition: Anticipated Discharge Date: Discharge Date: 01/19/2019 Expected LOS: Initial Reviewer: [id number] Initial Review Date: 12/28/2018 Generated: 01/20/19 9:00 am Comments DCP- Discharge Planning Updated by [id number]: Tala Rodriguez on 01/20/19 6:[address] Received a call back from Shaw with [facility] and they have declined admission due to safety. Patient and his brother are aware that all home health agencies in the area have declined because of safety at this time and he will have a f/u with Dr. Herrera on Wednesday. DCP- Discharge Planning Updated by [id number]: Tala Rodriguez on 01/19/19 1:[address] Angel with [facility] has returned call and states they cannot accept patient at this time. States they have discharged him before because of "ongoing drug problems". I called Shaw with [facility] and informed her and she states she will ask her warranty administrator and return my call. I informed Dr. Gonzalez and he states to have patient f/u with Dr. Herrera on Wednesday. I informed dot compliance coordinator and she is making a f/u for him and cancelling house calls. Home today with brother. DCP- Discharge Planning Updated by [id number]: Tala Rodriguez on 01/19/19 11:[address] Received discharge orders. [facility] and [facility] have declined. I have referred to [facility], patient states he doesn't care who he uses. I spoke with his brother, Imer, he states he will pick him up today and bring his portable oxygen. Patient and family in agreement to discharge plan. Awaiting to hear back from [facility]. CM will continue to follow and assist with discharge planning/needs. DCP- Discharge Planning Updated by [id number]: Tala Rodriguez on 01/17/19 6:[address] Spoke with patient's brother yesterday here at the hospital and he states ok [facility]. States his brother does not want to go to a custodial. I faxed clinical to [facility] in [place] and spoke with Krystal. CM will continue to follow and assist with discharge planning/needs. DCP- Discharge Planning Updated by [id number]: Tala Rodriguez on 01/16/19 11:[address] CM met with patient, I informed him that [facility] was not going to accept him to home health and he states he lives with his step brother and his home is safe, but the neighborhood can have a lot of "going on". I spoke with him about LTACH and he refuses at this time. I spoke with Krystal at LTACH at [facility] and she did not feel [facility] would authorize admission. CM will continue to follow and assist with discharge planning/needs. DCP- Discharge Planning Updated by [id number]: Tala Cordobapetty on 01/13/19 2:[address] Georgie with [facility] returned my call and states they cannot accept patient due to unsafe living conditions. She states that he does not live alone and their is "too much activity around his house." He will not be able to receive home health at this time. CM will continue to follow and assist with discharge planning/needs. DCP- Discharge Planning Updated by [id number]: Tala Rodriguez on 01/13/19 12:[address] Inpatient rehab stay has been denied by his insurance. He is ambulating 250 feet without assist. I discussed the availability of SNF and home health. He states he would like to go home with home health. I gave him a HELENE form and he chose [facility]. He states he has oxygen and nebulizer, he also has a trilogy at home and his step brother will take him home on discharge. I reminded him to have portable oxygen for discharge. He uses [facility] for DME. CM will continue to follow and assist with discharge planning/needs. DCP- Discharge Planning Updated by [id number]: Tala Michael on 01/10/19 6:[address] CM met with patient. He states his discharge plan is to admit to inpatient rehab when discharged from acute care. He has a pending auth with [facility] for inpatient rehab at this time. CM will continue to follow and assist with discharge planning/needs. DCP- Discharge Planning Updated by [id number]: Jeannie Mccray on 01/06/19 5:[address] planning to go to inpatient rehab once more medically stable and chest tube is out. Rehab pre-screen ordered. CM will continue to follow and assist as needed with discharge planning / needs DCP- Discharge Planning Updated by [id number]: Jeannie Mccray on 12/28/18 1:[address] Patient Name: VIVIEN REYES Admission Status: Elective Accout number: [id number] Admission Date: 12-27-2018 : 1955 Admission Diagnosis: Attending: KEELY LOZANO Current LOS: 1 Anticipated DC Date: Planned Disposition: Primary Insurance: [facility] [employer]IONS Discharge Planning Comments: CM met with patient at bedside after explaining CM role and obtaining verbal consent. Patient lives at home with his friend where he is independent with his care and plans to return there upon discharge. Patient feels this would be a safe discharge. CM discussed availability / needs of home health and medical equipment. Patient has home / portable 02 with [facility]. Patient denies any discharge needs at this time. Patient states he will have his family drive him home upon discharge. CM will continue to follow and assist as needed with discharge planning / needs. Brazer Induction: Jeannie Mccray DCP- Discharge Planning Updated by [id number]: Tala Rodriguez on 12/28/18 6:[address] CM attempted to do initial admission assessment but the patient is not able to stay awake to answer questions. His speech is not clear and he is very hard to understand at this time. CM spoke to Charge nurse who reported they medicated him with Benadryl and they are having a hard time understanding him as well. Cm will try again at a later time when he is able to complete assessment. Riddhi Verdin RN, [facility] DCPIA - Discharge Planning Initial Assessment Updated by [email or web address]: Jeannie Mccray on 12/28/18 1:54 pm * Is the patient Alert and Oriented? No * How many steps to enter\\exit or inside your home? * PCP RAFAEL * Pharmacy [facility] * Preadmission Environment Home with Family * ADLs Independent * Other Equipment HOME & PORTABLE 02 * List name and contact numbers for known caregivers / representatives who currently or will assist patient after discharge: ALESIA FLORIAN - FRIEND - [phone] VIVIEN REYES - BROTHER - [phone] * Verbal permission to speak to the caregivers and representatives has been obtained from the patient. N/A * Community resources currently utilized None * Additional services required to return to the preadmission environment? No * Can the patient safely return to the preadmission environment? Yes * Has this patient been hospitalized within the prior 30 days at any hospital? Yes Coverage Notice Reviewer: [id number] Hudson Rodriguez Notice Issued Date-Time: 01/13/2019 13:13 Notice Type: Patient Choice Letter Notice Delivered To: Patient Relationship to Patient: Self Associate Creative Director Name: Delivery Method: HAND - Hand Delivered Shae Days: Prior Verbal Notification: Recipient Understood Notice: Yes Recipient Signature: Yes Med Rec Note Co-signed by Attending: Coverage Notice Comment: [facility] for [facility] or [facility] Reviewer: [id number] Rodriguez Notice Issued Date-Time: 01/19/2019 12:08 Notice Type: IM Discharge Notice Notice Delivered To: Patient Relationship to Patient: Self Associate Creative Director Name: Delivery Method: HAND - Hand Delivered Shae Days: Prior Verbal Notification: Recipient Understood Notice: Yes Recipient Signature: Yes Med Rec Note Co-signed by Attending: Coverage Notice Comment: IMM explained, signed, given, copy placed in MR Last DP export: 01/19/19 2:25 Patient Name: VIVIEN REYES Page 38601 at 0800 All edits/amendments must be made on the electronic document DICTATION DATE: 01/20/19758 GLASS PRESSER: DM 01/20/19758 RPT#: [id number] DC DATE:01/19/19 STATUS: DIS IN [facility] [address] [place] [address] END OF REPORT
--- NOTE | 2019-01-20 15:56 | MORECARE ---
CASE MANAGEMENT DISCHARGE SUMMARY PATIENT: VIVIEN REYES SR UNIT: [id number] ADM DATE: 12/27/18 AGE: 63 : 57 SEX: M ROOM/BED: D.2237 AUTHOR: CHARO SONG PHYSICIAN: REFERRING PHYSICIAN: KEELY LOZANO MD DATE OF SERVICE: 01/20/19 Discharge Plan Patient Name: VIVIEN REYES Facility: [facility]:[place] : 1955 Planned Disposition: Home Anticipated Discharge Date: Discharge Date: 01/19/2019 Expected LOS: 0 Initial Reviewer: [email or web address] Initial Review Date: 12/28/2018 Generated: 01/20/19 4:56 pm Comments DCP- Discharge Planning Updated by [id number]: Tala Rodriguez on 01/20/19 6:[address] Received a call back from [facility] with [facility] and they have declined admission due to safety. Patient and his brother are aware that all home health agencies in the area have declined because of safety at this time and he will have a f/u with Dr. Herrera on Wednesday. DCP- Discharge Planning Updated by [id number]: Tala Rodriguez on 01/19/19 1:[address] Angel with [facility] has returned call and states they cannot accept patient at this time. States they have discharged him before because of "ongoing drug problems". I called Shaw with [facility] and informed her and she states she will ask her health data administrator and return my call. I informed Dr. Gonzalez and he states to have patient f/u with Dr. Herrera on Wednesday. I informed infection prevention coordinator and she is making a f/u for him and cancelling house calls. Home today with brother. DCP- Discharge Planning Updated by [id number]: Tala Rodriguez on 01/19/19 11:[address] Received discharge orders. [facility] have declined. I have referred to [facility], patient states he doesn't care who he uses. I spoke with his brother, Imer, he states he will pick him up today and bring his portable oxygen. Patient and family in agreement to discharge plan. Awaiting to hear back from [facility]. CM will continue to follow and assist with discharge planning/needs. DCP- Discharge Planning Updated by [id number]: Tala Rodriguez on 01/17/19 6:[address] Spoke with patient's brother yesterday here at the hospital and he states [facility]. States his brother does not want to go to a halfway. I faxed clinical to [facility] in [place] and spoke with Krystal. CM will continue to follow and assist with discharge planning/needs. DCP- Discharge Planning Updated by [id number]: Tala Cordobapetty on 01/16/19 11:[address] CM met with patient, I informed him that [facility] was not going to accept him to home health and he states he lives with his step brother and his home is safe, but the neighborhood can have a lot of "going on". I spoke with him about LTACH and he refuses at this time. I spoke with Krystal at LTACH at [facility] and she did not feel [facility] would authorize admission. CM will continue to follow and assist with discharge planning/needs. DCP- Discharge Planning Updated by [id number]: Tala Cordobapetty on 01/13/19 2:[address] Georgie with [facility] returned my call and states they cannot accept patient due to unsafe living conditions. She states that he does not live alone and their is "too much activity around his house." He will not be able to receive home health at this time. CM will continue to follow and assist with discharge planning/needs. DCP- Discharge Planning Updated by [id number]: Tala Cordobapetty on 01/13/19 12:[address] Inpatient rehab stay has been denied by his insurance. He is ambulating 250 feet without assist. I discussed the availability of SNF and home health. He states he would like to go home with home health. I gave him a HELENE form and he chose [facility]. He states he has oxygen and nebulizer, he also has a trilogy at home and his step brother will take him home on discharge. I reminded him to have portable oxygen for discharge. He uses [facility] for DME. CM will continue to follow and assist with discharge planning/needs. DCP- Discharge Planning Updated by [id number]: Tala Rodriguez on 01/10/19 6:[address] CM met with patient. He states his discharge plan is to admit to inpatient rehab when discharged from acute care. He has a pending auth with [facility] for inpatient rehab at this time. CM will continue to follow and assist with discharge planning/needs. DCP- Discharge Planning Updated by [id number]: Jeannie Mccray on 01/06/19 5:[address] planning to go to inpatient rehab once more medically stable and chest tube is out. Rehab pre-screen ordered. CM will continue to follow and assist as needed with discharge planning / needs DCP- Discharge Planning Updated by [id number]: Jeannie Mccray on 12/28/18 1:[address] Patient Name: VIVIEN REYES Admission Status: Elective Accout number: [id number] Admission Date: 12-27-2018 : 1955 Admission Diagnosis: Attending: KEELY LOZANO Current LOS: 1 Anticipated DC Date: Planned Disposition: Primary Insurance: [facility] MED[employer] SOLUTIONS Discharge Planning Comments: CM met with patient at bedside after explaining CM role and obtaining verbal consent. Patient lives at home with his friend where he is independent with his care and plans to return there upon discharge. Patient feels this would be a safe discharge. CM discussed availability / needs of home health and medical equipment. Patient has home / portable 02 with [facility]. Patient denies any discharge needs at this time. Patient states he will have his family drive him home upon discharge. CM will continue to follow and assist as needed with discharge planning / needs. Spa Concierge: Jeannie Mccray DCP- Discharge Planning Updated by [id number]: Tala Rodriguez on 12/28/18 6:[address] CM attempted to do initial admission assessment but the patient is not able to stay awake to answer questions. His speech is not clear and he is very hard to understand at this time. CM spoke to Charge nurse who reported they medicated him with Benadryl and they are having a hard time understanding him as well. Cm will try again at a later time when he is able to complete assessment. Riddhi Verdin RN, [facility] DCPIA - Discharge Planning Initial Assessment Updated by [id number]: Jeannie Mccray on 12/28/18 1:54 pm * Is the patient Alert and Oriented? No * How many steps to enter\\exit or inside your home? * PCP [facility] * Pharmacy [facility] * Preadmission Environment Home with Family * ADLs Independent * Other Equipment HOME & PORTABLE 02 * List name and contact numbers for known caregivers / representatives who currently or will assist patient after discharge: ALESIA FLORIAN - FRIEND - [phone] VIVIEN REYES - BROTHER - [phone] * Verbal permission to speak to the caregivers and representatives has been obtained from the patient. N/A * Community resources currently utilized None * Additional services required to return to the preadmission environment? No * Can the patient safely return to the preadmission environment? Yes * Has this patient been hospitalized within the prior 30 days at any hospital? Yes Coverage Notice Reviewer: [id number] Hudson Rodriguez Notice Issued Date-Time: 01/13/2019 13:13 Notice Type: Patient Choice Letter Notice Delivered To: Patient Relationship to Patient: Self K 9 Police Officer Name: Delivery Method: HAND - Hand Delivered Shae Days: Prior Verbal Notification: Recipient Understood Notice: Yes Recipient Signature: Yes Med Rec Note Co-signed by Attending: Coverage Notice Comment: [facility] for [facility] Reviewer: [id number] Rodriguez Notice Issued Date-Time: 01/19/2019 12:08 Notice Type: IM Discharge Notice Notice Delivered To: Patient Relationship to Patient: Self K 9 Police Officer Name: Delivery Method: HAND - Hand Delivered Shae Days: Prior Verbal Notification: Recipient Understood Notice: Yes Recipient Signature: Yes Med Rec Note Co-signed by Attending: Coverage Notice Comment: IMM explained, signed, given, copy placed in MR Last DP export: 01/20/19 7:00 a Patient Name: VIVIEN REYES Page [id number] at 1556 All edits/amendments must be made on the electronic document DICTATION DATE: 01/20/19 1556 TABLET COATER: LEIGH 01/20/19 1556 RPT#: [id number] DC DATE:01/19/19 STATUS: DIS IN [address] [place] [address] END OF REPORT
[2019-01-27 09:10] LABS: FUNGUS MYCOLOGY CULTURE Final report (())
[2019-01-27 09:10] LABS: FUNGUS MYCOLOGY CULTURE Final report (())
[2019-02-20 18:08] LABS: ACID FAST CULTURE Negative (()); ACID FAST SMEAR Negative (())
[2019-02-20 18:08] LABS: ACID FAST CULTURE Negative (()); ACID FAST SMEAR Negative (())
== END 2019-01-19 16:39 | disposition home or self-care (01) | DRG 987 ==
LOC: D.ER 13:20 → D.ICU 16:00 → D.MS 16:00 → D.ICU 12-28 08:53 → D.MS 01-07 13:58
PROVIDERS: Family Medicine; Internal Medicine Cardiovascular Disease; Internal Medicine Pulmonary Disease; Radiology Vascular & Interventional Radiology; Urology; ADMIT Internal Medicine Nephrology; ATTEND Internal Medicine Nephrology
PROC: 0T7D4ZZ Dilation of Urethra, Percutaneous Endoscopic Approach (ICD-10-PCS; 2018-12-28)
PROC: 0BH17EZ Insertion of Endotracheal Airway into Trachea, Via Natural or Artificial Opening (ICD-10-PCS; 2018-12-28)
PROC: 5A1955Z Respiratory Ventilation, Greater than 96 Consecutive Hours (ICD-10-PCS; 2018-12-28)
PROC: 0W993ZZ Drainage of Right Pleural Cavity, Percutaneous Approach (ICD-10-PCS; principal; 2018-12-28 09:00)
PROC: 0W9930Z Drainage of Right Pleural Cavity with Drainage Device, Percutaneous Approach (ICD-10-PCS; 2019-01-03)
DX: J96.22 Acute and chronic respiratory failure with hypercapnia (principal); I50.23 Acute on chronic systolic (congestive) heart failure; I21.4 Non-ST elevation (NSTEMI) myocardial infarction; I46.9 Cardiac arrest, cause unspecified; G93.41 Metabolic encephalopathy; J18.1 Lobar pneumonia, unspecified organism; R53.2 Functional quadriplegia; E43 Unspecified severe protein-calorie malnutrition; I13.0 Hypertensive heart and chronic kidney disease with heart failure and stage 1 through stage 4 chronic kidney disease, or unspecified chronic kidney disease; I42.9 Cardiomyopathy, unspecified; J90 Pleural effusion, not elsewhere classified; L03.221 Cellulitis of neck; N17.9 Acute kidney failure, unspecified; J96.21 Acute and chronic respiratory failure with hypoxia; D64.9 Anemia, unspecified; N18.9 Chronic kidney disease, unspecified; K21.9 Gastro-esophageal reflux disease without esophagitis; I73.9 Peripheral vascular disease, unspecified; N32.0 Bladder-neck obstruction; F17.200 Nicotine dependence, unspecified, uncomplicated; J43.9 Emphysema, unspecified; Z68.26 Body mass index [BMI] 26.0-26.9, adult

== ENCOUNTER 2019-02-01 08:16 | Inpatient (IN) | payer MEDICARE, MEDICAID ==
[~2019-02-01] VITALS: Ht 185.4 cm; Wt 96.5 kg
[~2019-02-01 08:16] MED LIST changes: +ALDACTONE25 MG PO; +CHRONULAC30 ML PO
[2019-02-01 09:07] LABS: BASOPHILS 0.3 % (0-2); HEMATOCRIT 27.1 % (42.0-54.0); HEMOGLOBIN 8.2 g/dL (13.5-17.5); IMMATURE GRANULOCYTES 0.3 % (0-5); LYMPHOCYTES 7.3 % (15-50); MCH 28.8 pg (26.0-34.0); MCHC 30.3 g/dL (31.0-37.0); MCV 95.1 fL (80.0-100.0); MEAN PLATELET VOLUME 8.6 fL (7.4-10.4); NEUTROPHILS 75.1 % (40-80); RBC 2.85 10x6/uL (4.20-6.10); WBC 10.1 10x3/uL (4.8-10.8)
[2019-02-01 09:08] LABS: PLATELET COUNT 157 10x3/uL (130-400)
[2019-02-01 09:14] LABS: ANION GAP 12.6 mmol/L (8-16); CARBON DIOXIDE 26.5 mmol/L (21.0-32.0); CREATININE - SERUM 1.8 mg/dL (0.6-1.3); POTASSIUM - SERUM 5.1 mmol/L (3.5-5.1)
[2019-02-01 09:33] LABS: ALBUMIN 2.8 g/dL (3.4-5.0); BILIRUBIN - TOTAL 0.96 mg/dL (0.2-1.3); PROTEIN - SERUM 8.6 g/dL (6.4-8.2); THYROID STIMULATING HORMONE 4.86 uIU/mL (0.36-3.74)
--- NOTE | 2019-02-01 09:42 | NUR ---
NOTIFIED DR GLOVER AMMONIA LEVEL WAS 88
--- NOTE | 2019-02-01 10:29 | NUR ---
URINE SAMPLE SENT TO LAB
[2019-02-01 10:42] LABS: APPEARANCE CLEAR (CLEAR); BILIRUBIN NEGATIVE (NEGATIVE); COLOR YELLOW (YELLOW); GLUCOSE NEGATIVE (NEGATIVE); KETONE NEGATIVE (NEGATIVE); NITRITE NEGATIVE (NEGATIVE); PROTEIN NEGATIVE (NEGATIVE); UROBILINOGEN NORMAL (NORMAL)
--- NOTE | 2019-02-01 12:00 | NUR ---
REPORT GIVEN TO ALISA JOSE. REPORTED TO DAMON THAT PT WOULD NEED VANC UPON ARRIVAL TO FLOOR AND DR SHEA NEEDS CONSULTED.
[2019-02-01] MEDS ORDERED: FERROUS SULFAT325 MG PO (13:01)
[2019-02-01 13:04] VITALS: BP 134/83
[2019-02-01] MEDS ORDERED: CARTIA XT120 MG PO (13:04)
[2019-02-01] MEDS ORDERED: COREG 3.1253.125 MG PO (13:04)
[2019-02-01 13:11] LABS: UDS - AMPHET NEGATIVE QUAL (NEGATIVE); UDS - BARB NEGATIVE QUAL (NEGATIVE); UDS - BENZO NEGATIVE QUAL (NEGATIVE); UDS - COCAINE NEGATIVE QUAL (NEGATIVE); UDS - OPIATE NEGATIVE QUAL (NEGATIVE); UDS - PCP NEGATIVE QUAL (NEGATIVE); UDS - THC NEGATIVE QUAL (NEGATIVE)
[2019-02-01 13:43] VITALS: BP 134/83; BMI 27.7
--- NOTE | 2019-02-01 17:33 | NUR ---
PATIENT SITTING UP IN BED EATING SUPPER. PATIENT IS UNCHANGED. WILL CONTINUE TO MONITOR. SR UP X 2 BED IN LOW POSITION AND CALL LIGHT IN REACH.
[2019-02-01 17:44] VITALS: BP 109/65
[2019-02-01 20:00] VITALS: BP 141/94
--- NOTE | 2019-02-01 22:32 | NUR ---
TYLENOL GIVEN AT PT REQUEST FOR C/O GENERALIZED PAIN.
[2019-02-02] VITALS: BP 144/77
--- NOTE | 2019-02-02 01:12 | NUR ---
PT UP TO BR, IV TO LEFT AC PULLED OUT. IV RESITED TO LEFT WRIST, 20 GUAGE.
--- NOTE | 2019-02-02 02:04 | NUR ---
I have reviewed this patient and I concur with the Shift Assessment completed by the Licensed Practical Nurse today this shift.
[2019-02-02 04:30] VITALS: BP 116/67
[2019-02-02 06:22] LABS: BASOPHILS 0.2 % (0-2); EOSINOPHILS 10.4 % (0-7); HEMATOCRIT 26.1 % (42.0-54.0); IMMATURE GRANULOCYTES 0.4 % (0-5); LYMPHOCYTES 8.9 % (15-50); MCHC 30.7 g/dL (31.0-37.0); MCV 94.6 fL (80.0-100.0); MONOCYTES 8.5 % (2-11); NEUTROPHILS 71.6 % (40-80); PLATELET COUNT 153 10x3/uL (130-400); RBC 2.76 10x6/uL (4.20-6.10); RDW 19.2 % (11.5-14.5); WBC 8.2 10x3/uL (4.8-10.8)
[2019-02-02 06:23] LABS: ANION GAP 11.4 mmol/L (8-16); CALCIUM 8.7 mg/dL (8.5-10.1); CARBON DIOXIDE 26.7 mmol/L (21.0-32.0); CREATININE - SERUM 2.1 mg/dL (0.6-1.3); POTASSIUM - SERUM 5.1 mmol/L (3.5-5.1)
--- NOTE | 2019-02-02 07:10 | NUR ---
REPORT RECEVIED FROM CONSULTING TECHNICAL DIRECTOR AND PATIENT CARE ASSUMED. PATIENT LAYING IN BED ON RT SIDE WITH EYES CLOSED AND BREATHING EVENLY. WILL CONTINUE WITH PLAN OF CARE. SR UP X 2 BED IN LOW POSITION AND CALL LIGHT IN REACH.
[2019-02-02 09:08] VITALS: BP 139/83
--- NOTE | 2019-02-02 11:30 | NUR ---
PATIENT SITTING UP AT BS EATING LUNCH. PATIENT IS UNCHANGED. PATIENT DENIES ANY NEEDS . VSS. WILL CONTINUE TO MONITOR. CALL LIGHT IN REACH.
[2019-02-02 12:27] VITALS: BP 121/69
[2019-02-02 14:12] VITALS: BMI 27.7
--- NOTE | 2019-02-02 14:46 | NUR ---
PATIENT UP TO STANDING SCALE FOR WEIGHT CHECK. PATIENT WEIGHT IS 204. COMPLETE BED CHANGE AND PATIENT BACK TO BED. PATIENT DEIES ANY NEEDS OR PAIN. WILL CONTINUE TO MONITOR. SR UP X 2 BED IN LOW POSITION AND CALL LIGHT IN REACH.
[2019-02-02 17:19] VITALS: BP 121/69
--- NOTE | 2019-02-02 18:22 | NUR ---
PATIENT HAD BM AND COMPLETE LINEN CHANGE. PATIENT IS UHCHANGED. PATIENT DENIES NEEDS OR PAIN. WILL CONTINUE TO MONITOR. SR UP X 2 BED IN LOW POSTION AND CALL LIGHT IN REACH.
[2019-02-02 20:00] VITALS: BP 126/74
[2019-02-03] VITALS: BP 135/69
--- NOTE | 2019-02-03 03:10 | NUR ---
I have reviewed this patient and I concur with the Shift Assessment completed by the Licensed Practical Nurse today this shift.
--- NOTE | 2019-02-03 07:10 | NUR ---
REPORT RECEIVED FROM TURNAROUND ENGINEER AND PATIENT CARE ASSUMED. PATIENT LAYING IN BED WITH HOB ELEVATED 40 DEGREES. PATIENT IS AWAKE AND ALERT. PATIENT IS STABLE AND VSS. PATIENT DENIES ANY NEEDS OR PAIN. WILL CONTINUE TO MONITOR. SR UP X 2 BED IN LOW POSITION AND CALL LIGHT IN REACH.
[2019-02-03 09:10] VITALS: BP 119/70
[2019-02-03 11:40] VITALS: BP 116/69
[2019-02-03 13:11] LABS: ANION GAP 13.1 mmol/L (8-16); CALCIUM 8.9 mg/dL (8.5-10.1); CARBON DIOXIDE 29.7 mmol/L (21.0-32.0); HEMATOCRIT 25.5 % (42.0-54.0); HEMOGLOBIN 8.1 g/dL (13.5-17.5); MCH 29.6 pg (26.0-34.0); MCHC 31.8 g/dL (31.0-37.0); MCV 93.1 fL (80.0-100.0); MEAN PLATELET VOLUME 8.5 fL (7.4-10.4); PLATELET COUNT 140 10x3/uL (130-400); POTASSIUM - SERUM 4.8 mmol/L (3.5-5.1); RBC 2.74 10x6/uL (4.20-6.10); RDW 19.2 % (11.5-14.5); WBC 9.3 10x3/uL (4.8-10.8)
--- NOTE | 2019-02-03 14:20 | NUR ---
PATIENT IS STABLE AND UNCHANGED. PATIENT DENIES ANY NEEDS OR PAIN. VSS. WILL CONTINUE TO MONITOR. SR UP X 2 BED IN LOW POSITION AND CALL LIGHT IN REACH.
[2019-02-03 14:26] LABS: EOSINOPHILS 10 % (0-7); LYMPHOCYTES 4 % (15-50); MONOCYTES 8 % (2-11); NEUTROPHILS 78 % (40-80); PLATELET ESTIMATE DECREASED
[2019-02-03 18:05] VITALS: BP 98/49
[2019-02-03 20:00] VITALS: BP 114/62
--- NOTE | 2019-02-03 20:20 | NUR ---
INITIAL ROUNDS COMPLETED AT 1915 HRS. PT SITTING ON SIDE OF BED EATING ICE CREAM. NO DISTRESS NOTED. ASSESMENT COMPLETED AT 2001 HRS. VSS. SR PER CM HR 78. O2 2LNC. ALERT AND ORIENTED TO PERSON, PLACE AND TIME. CANO. IV TO L WRIST SL. LUNGS DIMINISHED IN BASES BILAT. TRACE GENERALIZED EDEMA NOTED. CANO. PT STATES WILL REFUSE CRONULAC THIS PM. SR UP X2,CALL LIGHT WITHIN REACH.
--- NOTE | 2019-02-03 21:26 | NUR ---
PM MEDS GIVEN. TYLENOL 650MG PO GIVEN FOR C/O MILD OSBORN. CALL LIGHT WITHIN REACH
[2019-02-04 00:01] VITALS: BP 136/52
--- NOTE | 2019-02-04 00:21 | NUR ---
R NECK BEGINNING TO SWELL AGAIN. HOB UP TO 45 DEGREES. CALL LIGHT WITHIN REACH.
--- NOTE | 2019-02-04 01:36 | NUR ---
PT RESTING WITH EYES CLOSED. RESP EVEN AND REGULAR. SR UP X2, CALL LIGHT WITHIN REACH.
--- NOTE | 2019-02-04 04:08 | NUR ---
TYLENOL 650MG PO GIVEN FOR C/O OSBORN. CALL LIGHT WITHIN REACH.
[2019-02-04 04:25] VITALS: BP 114/60
[2019-02-04 05:54] LABS: CALCIUM 8.9 mg/dL (8.5-10.1); CARBON DIOXIDE 30.3 mmol/L (21.0-32.0); POTASSIUM - SERUM 5.3 mmol/L (3.5-5.1)
[2019-02-04 06:31] LABS: BASOPHILS 0.2 % (0-2); EOSINOPHILS 12.1 % (0-7); HEMATOCRIT 24.3 % (42.0-54.0); IMMATURE GRANULOCYTES 0.4 % (0-5); LYMPHOCYTES 7.1 % (15-50); MCH 28.7 pg (26.0-34.0); MCHC 30.5 g/dL (31.0-37.0); MCV 94.2 fL (80.0-100.0); MEAN PLATELET VOLUME 8.8 fL (7.4-10.4); MONOCYTES 11.8 % (2-11); NEUTROPHILS 68.4 % (40-80); PLATELET COUNT 137 10x3/uL (130-400); RBC 2.58 10x6/uL (4.20-6.10); RDW 19.5 % (11.5-14.5); WBC 9.1 10x3/uL (4.8-10.8)
[2019-02-04 06:33] LABS: HEMOGLOBIN 7.4 g/dL (13.5-17.5)
--- NOTE | 2019-02-04 06:36 | NUR ---
VSS THROUGHOUT NIGHT. SR PER CM. PT STATED TYLENOL ALLEVIATED OSBORN. NEEDS MET; WILL CONTINUE TO MONITOR.
--- NOTE | 2019-02-04 08:06 | NUR ---
ALERT AND ORIENTED. TELEMERTY SHOWS SR 76. 02 AT 2 L/M PER NC. LEFT WRIST SL. PT HAS GENERLIZED EDEMA. LUNGS DEMISHED. DENIES ANY NEEDS. SR UP WITH CALL LIGHT IN REACH. WILL MONITOR
[2019-02-04 08:39] VITALS: BP 116/66
[2019-02-04 12:00] VITALS: BP 122/65
--- NOTE | 2019-02-04 13:11 | NUR ---
UNIT OF BLOOD STARTED BY GAYE CUELLAR. V/S STABLE . WILL MONITOR. SR UP WITH CALL LIGHT IN REACH
--- NOTE | 2019-02-04 13:45 | NUR ---
I have reviewed this patient and I concur with the Shift Assessment completed by the Licensed Practical Nurse today this shift.
--- NOTE | 2019-02-04 16:19 | NUR ---
BLOOD FINISHED. V/S STABLE. TELEMERTY SHOWS SR. DENIES ANY NEEDS.
[2019-02-04 16:44] VITALS: BP 116/67
--- NOTE | 2019-02-04 19:15 | NUR ---
RECEIVED REPORT, WILL ASSUME CARE OF PT, PT DENIES ANY NEEDS AT THIS TIME, BED IS LOW, SRX2, CALL LIGHT IN REACH, WILL CONTINUE PLAN OF CARE
[2019-02-04 20:00] VITALS: BP 103/65
--- NOTE | 2019-02-04 22:56 | NUR ---
COMPLAINS OF IV HURTING IN L, WRIST, REMOVED, RESITED 20G. TO RFA, 1 ATTEMPT
[2019-02-05] VITALS: BP 126/72
[2019-02-05 04:00] VITALS: BP 135/69
[2019-02-05 05:32] LABS: BASOPHILS 0.2 % (0-2); EOSINOPHILS 10.2 % (0-7); HEMATOCRIT 27.2 % (42.0-54.0); HEMOGLOBIN 8.2 g/dL (13.5-17.5); IMMATURE GRANULOCYTES 0.2 % (0-5); LYMPHOCYTES 8.6 % (15-50); MCHC 30.1 g/dL (31.0-37.0); MCV 92.8 fL (80.0-100.0); MONOCYTES 9.5 % (2-11); NEUTROPHILS 71.3 % (40-80); PLATELET COUNT 143 10x3/uL (130-400); RBC 2.93 10x6/uL (4.20-6.10); RDW 21.6 % (11.5-14.5); WBC 9.1 10x3/uL (4.8-10.8)
[2019-02-05 05:51] LABS: ANION GAP 8.5 mmol/L (8-16); CALCIUM 9.1 mg/dL (8.5-10.1); CARBON DIOXIDE 31.9 mmol/L (21.0-32.0); CREATININE - SERUM 1.9 mg/dL (0.6-1.3); POTASSIUM - SERUM 5.4 mmol/L (3.5-5.1)
--- NOTE | 2019-02-05 07:00 | NUR ---
RECIEVED REPORT. BEDSIDE SHIFT REPORT COMPLETE. ASSUMED CARE OF PATIENT. RESTING IN BED WITH EYES OPEN. CALL LIGHT WITHIN REACH. NO DISTRESS. NO DISTENSION TO NECK. DENIES NEEDS. PATIENT CHEERFUL MOOD THIS AM, LAUGHING AND SMILING.
[2019-02-05 09:00] VITALS: BP 124/73
--- NOTE | 2019-02-05 11:48 | NUR ---
IV INFILTRATED THAT WAS PLACED BY NOC SHIFT NURSE. WILL RESITE, ABX WILL BE LATE.
[2019-02-05 12:00] VITALS: BP 105/53
--- NOTE | 2019-02-05 12:41 | NUR ---
20 GAUGE IV PLACED TO LEFT FOREARM X 1 STICK, GOOD BLOOD RETURN, EASY FLUSH. TAPED, DATED AND SECURED. TOLERATED IV PLACEMENT WELL. IV ABX ARE NOW INFUSING. CALL LIGHT WITHIN REACH.
[2019-02-05 18:11] VITALS: BP 129/71
--- NOTE | 2019-02-05 19:15 | NUR ---
RECEIVED REPORT, WILL ASSUME CARE OF PT, SITTING ON SIDE OF BED, DENIES ANY NEEDS AT THIS TIME, BED IS LOW, SRX1, CALL LIGHT IN REACH, WILL CONTINUE PLAN OF CARE
[2019-02-05 20:00] VITALS: BP 117/65
[2019-02-06] VITALS: BP 106/57
--- NOTE | 2019-02-06 03:58 | NUR ---
I have reviewed this patient and I concur with the Shift Assessment completed by the Licensed Practical Nurse today this shift.
[2019-02-06 04:00] VITALS: BP 113/63
[2019-02-06 05:28] LABS: BASOPHILS 0.2 % (0-2); EOSINOPHILS 10.4 % (0-7); HEMATOCRIT 25.9 % (42.0-54.0); HEMOGLOBIN 7.9 g/dL (13.5-17.5); IMMATURE GRANULOCYTES 0.1 % (0-5); MCH 28.1 pg (26.0-34.0); MCHC 30.5 g/dL (31.0-37.0); MCV 92.2 fL (80.0-100.0); MEAN PLATELET VOLUME 9.2 fL (7.4-10.4); MONOCYTES 13.5 % (2-11); NEUTROPHILS 68.8 % (40-80); PLATELET COUNT 131 10x3/uL (130-400); RBC 2.81 10x6/uL (4.20-6.10); RDW 20.7 % (11.5-14.5); WBC 8.1 10x3/uL (4.8-10.8)
[2019-02-06 05:50] LABS: ANION GAP 11.4 mmol/L (8-16); CALCIUM 8.6 mg/dL (8.5-10.1); CREATININE - SERUM 1.9 mg/dL (0.6-1.3); POTASSIUM - SERUM 5.4 mmol/L (3.5-5.1)
--- NOTE | 2019-02-06 07:38 | NUR ---
REPORT RECEIVED FROM BODY PAINTER AND PATIENT CARE ASSUMED. PATIENT LYING IN BED ON BACK WITH EYES CLOSED AND BREATHING EVENLY. VSS. WILL CONTINUE WITH PLAH OF CARE. SR UP X 2 BED IN LOW POSITION AND CALL LIGHT IN REACH.
[2019-02-06 11:13] VITALS: BP 107/64
--- NOTE | 2019-02-06 11:45 | NUR ---
PATIENT SITTING UP ON SIDE OF BED EATING LUNCH. PATIENT IS STABLE AND UNCHANGED. VSS. PATIENT DENIES ANY NEEDS OR PAIN. WILL CONTINUE TO MONITOR. CALL LIGHT IN REACH.
[2019-02-06 14:57] VITALS: BP 112/56
--- NOTE | 2019-02-06 15:08 | NUR ---
Nutrition Follow-up: Good/fair PO intake. Solid diet with thin liquids per ST. Diet: Cardiac PO intake: 50-100% Wt: 205# Last BM: 02/05 Labs reviewed Meds reviewed -Continue current diet as tolerated. -RD following.
[2019-02-06 17:33] VITALS: BP 114/63
--- NOTE | 2019-02-06 20:04 | NUR ---
RECEIVED BEDSIDE REPORT. PATIENT RESTING COMFRTABLY IN BED. RESPIRATIONS ARE EVEN AND UNLABORED. NO S/S OF DISTRESS. NO C/O PAIN. CALL LIGHT WITHIN REACH. AMPARO BROWNOC.
[2019-02-06 20:34] VITALS: BP 124/69
--- NOTE | 2019-02-06 21:02 | NUR ---
PT C/O CP/BACK PAIN TYLENOL GIVEN AT THIS TIME.
[2019-02-07 01:10] VITALS: BP 120/67
[2019-02-07 05:12] LABS: BASOPHILS 0.4 % (0-2); EOSINOPHILS 10.8 % (0-7); HEMATOCRIT 25.5 % (42.0-54.0); HEMOGLOBIN 7.8 g/dL (13.5-17.5); IMMATURE GRANULOCYTES 0.3 % (0-5); LYMPHOCYTES 10.8 % (15-50); MCH 28.3 pg (26.0-34.0); MCHC 30.6 g/dL (31.0-37.0); MCV 92.4 fL (80.0-100.0); MEAN PLATELET VOLUME 9.4 fL (7.4-10.4); MONOCYTES 10.7 % (2-11); PLATELET COUNT 137 10x3/uL (130-400); RBC 2.76 10x6/uL (4.20-6.10); RDW 20.3 % (11.5-14.5); WBC 7.6 10x3/uL (4.8-10.8)
[2019-02-07 05:39] LABS: CALCIUM 9.1 mg/dL (8.5-10.1); CARBON DIOXIDE 31.9 mmol/L (21.0-32.0); POTASSIUM - SERUM 4.9 mmol/L (3.5-5.1)
[2019-02-07 05:58] VITALS: BP 124/80
--- NOTE | 2019-02-07 07:30 | NUR ---
REPORT RECEIVED FROM EDUCATION SPECIALIST AND PATIENT CARE ASSUMED. PATIENT SITTING UP ON SIDE OF BED . PATIENT DENIES ANY NEEDS OR PAIN. VSS. WILL CONTINUE TO MONITOR. SR UP X 2 BED IN LOW POSITION AND CALL LIGHT IN REACH.
[2019-02-07 09:31] VITALS: BP 106/54
--- NOTE | 2019-02-07 10:13 | NUR ---
PATIENT LAYING IN BED AWAKE, ALERT AND SPEECH THERAPY IN ROOM. PATIENT DENIES ANY NEEDS OR PAIN. WILL CONTINUE TO MONITOR. SR UP X 2 BED IN LOW POSITION AND CALL LIGHT IN REACH.
[2019-02-07 12:00] VITALS: BP 103/66
--- NOTE | 2019-02-07 15:37 | NUR ---
PATIENT SITTING UP AT BS READING BOOK. PATIENT IS STABE AND VSS. PATIENT DENIES ANY NEEDS OR PAIN. WILL CONTINUE TO MONITOR. CALL LIGHT IN REACH.
[2019-02-07 16:00] VITALS: BP 130/80
[2019-02-07 20:00] VITALS: BP 102/52
[2019-02-08] VITALS: BP 106/64
--- NOTE | 2019-02-08 02:30 | NUR ---
PT STARTED ON BIPAP.
[2019-02-08 04:00] VITALS: BP 118/52
[2019-02-08 06:02] LABS: BASOPHILS 0.5 % (0-2); EOSINOPHILS 9.5 % (0-7); HEMATOCRIT 26.2 % (42.0-54.0); HEMOGLOBIN 7.9 g/dL (13.5-17.5); IMMATURE GRANULOCYTES 0.1 % (0-5); LYMPHOCYTES 9.9 % (15-50); MCH 28.1 pg (26.0-34.0); MCHC 30.2 g/dL (31.0-37.0); MCV 93.2 fL (80.0-100.0); MEAN PLATELET VOLUME 9.1 fL (7.4-10.4); MONOCYTES 11.4 % (2-11); NEUTROPHILS 68.6 % (40-80); PLATELET COUNT 132 10x3/uL (130-400); RBC 2.81 10x6/uL (4.20-6.10); RDW 20.1 % (11.5-14.5); WBC 7.6 10x3/uL (4.8-10.8)
[2019-02-08 06:14] LABS: ANION GAP 7.9 mmol/L (8-16); CALCIUM 8.9 mg/dL (8.5-10.1); CARBON DIOXIDE 34.6 mmol/L (21.0-32.0); CREATININE - SERUM 1.9 mg/dL (0.6-1.3); POTASSIUM - SERUM 5.5 mmol/L (3.5-5.1)
--- NOTE | 2019-02-08 07:10 | NUR ---
REPORT RECEIVED FROM BRAZING MACHINE FEEDER AND PATIENT CARE ASSUMED. PATIENT LAYIN GIN BED ON BACK AWAKE, ALERT AND ORIENTED X 4. PATIENT IS STABLE AND VSS. ENCOURAGED PATIENT TO SIT UP IN BS CHAIR AND WALK IN ROOM TODAY. PATIENT STATED THAT HE DOES GET UP AND PEOPLE NEED TO LEAVE HIM ALONE. WILL CONTINUE WITH PLAN OF CARE. SR UP X 2 BED IN LOW POSITION AND CALL LIGHT IN REACH.
[2019-02-08 09:55] VITALS: BP 109/55
--- NOTE | 2019-02-08 10:29 | NUR ---
PATIENT IS UNCHANGED. ATTEMPTED TO GET PATIENT TO SIT UP IN BS CHAIR. HE REFUSED AND HE IS TIRED OF ME ASKING. SPENT SEVERAL MINUTES SPEAKING WITH PATIENT ABOUT IMPORTANCE OF MOVEMENT, GETTING OUT OF BED ETC. PATIENT SAID THIS NURSE NEEDS TO MIND MY OWN BUSINESS. I FURTHER EXPLAINED THAT I CARE ABOUT HIS HEALTH. WILL CONTINUE TO MONITOR. SR UP X 2 BED IN LOW POSITION AND CALL LIGHT IN REACH.
--- NOTE | 2019-02-08 10:37 | MORECARE ---
CASE MANAGEMENT DISCHARGE SUMMARY PATIENT: VIVIEN REYES SR UNIT: [id number] ADM DATE: 02/01/19 AGE: 63 : 57 SEX: M ROOM/BED: D.[facility] AUTHOR: CHARO SONG PHYSICIAN: REFERRING PHYSICIAN: KEELY LOZANO MD DATE OF SERVICE: 02/08/19 Discharge Plan Patient Name: VIVIEN REYES [facility] [facility] 1955 Planned Disposition: Home Anticipated Discharge Date: Discharge Date: Expected LOS: Initial Reviewer: [email or web address] Initial Review Date: 02/01/2019 Generated: 02/08/19 11:37 am DCPIA - Discharge Planning Initial Assessment Updated by [email or web address]: Riddhi Verdin on 02/08/19 10:36 am * Is the patient Alert and Oriented? Yes * PCP Dr. Herrera * Pharmacy [facility] * Preadmission Environment Home with Family * ADLs Partial Dependent * Partial ADLs (Assistance needed) Bathing * Equipment Nebulizer Oxygen Rolling Walker * Other Equipment O2 with portability - [employer] is DME provider. * List name and contact numbers for known caregivers / representatives who currently or will assist patient after discharge: Ashlie Christopher [facility] - [phone] * Verbal permission to speak to the caregivers and representatives has been obtained from the patient. Yes * Community resources currently utilized None * Additional services required to return to the preadmission environment? Yes * Can the patient safely return to the preadmission environment? Yes * Has this patient been hospitalized within the prior 30 days at any hospital? No Patient Name: VIVIEN REYES Page [phone] at 1037 All edits/amendments must be made on the electronic document DICTATION DATE: 02/08/19 1037 REVERBERATORY FURNACE OPERATOR: LEIGH 02/08/19 1037 RPT#: [id number] DC DATE: STATUS: ADM IN [facility] [address] [place] [address] END OF REPORT
--- NOTE | 2019-02-08 10:46 | MORECARE ---
CASE MANAGEMENT DISCHARGE SUMMARY PATIENT: VIVIEN REYES SR UNIT: [id number] ADM DATE: 02/01/19 AGE: 63 : 57 SEX: M ROOM/BED: D.8838 AUTHOR: NOHEMI,DOC PHYSICIAN: REFERRING PHYSICIAN: KEELY LOZANO MD DATE OF SERVICE: 02/08/19 Discharge Plan Patient Name: VIVIEN REYES Facility: [facility]:[place] : 1955 Planned Disposition: Home Anticipated Discharge Date: Discharge Date: Expected LOS: Initial Reviewer: [email or web address] Initial Review Date: 02/01/2019 Generated: 02/08/19 11:45 am Comments DCP- Discharge Planning Updated by [email or web address]: Riddhi Verdin on 02/08/19 9:[address] DC PLAN: Return home with his brother in law there at . Referral to [facility]. ANTICIPATED DC NEEDS: Wants Home Health. CM met with patient to complete initial dc planning assessment. CM educated patient on the CM role and verbal consent given by patient to complete assessment. CM verified patient's address, phone number, and emergency contact phone numbers. Patient lives at home with his brother in law staying there at . He reports he has friends that also check on him throughout the day. He is mostly able to care for himself but sometimes needs help with ADL's. He reports he has plenty of help as needed. At discharge patient plans to return home and feels this is a safe discharge. CM discussed availability of home health, rehab services, and medical equipment. Patient stated he would like to have HH at time of dc. HELENE discussed with patient and he did not have a preference on HH agencies. HELENE signed for [facility]. Copy left with patient and copy placed on his chart. Order received for services and referral faxed to [place]. Patient reports his brother in law will transport him home at time of discharge. CM will continue to follow and will assist as needed with dc plans/needs. Riddhi Verdin RN, [facility] DCPIA - Discharge Planning Initial Assessment Updated by [email or web address]: Riddhi Verdin on 02/08/19 10:36 am * Is the patient Alert and Oriented? Yes * PCP Dr. Herrera * Pharmacy [facility] * Preadmission Environment Home with Family * ADLs Partial Dependent * Partial ADLs (Assistance needed) Bathing * Equipment Nebulizer Oxygen Rolling Walker * [facility] * List name and contact numbers for known caregivers / representatives who currently or will assist patient after discharge: Ashlie montalvo - [phone] * Verbal permission to speak to the caregivers and representatives has been obtained from the patient. Yes * Community resources currently utilized None * Additional services required to return to the preadmission environment? Yes * Can the patient safely return to the preadmission environment? Yes * Has this patient been hospitalized within the prior 30 days at any hospital? No External Providers External Provider: [facility] Next Contact Date: Service Request Date: Service Type: Resolution: Reviewer: Comments: Ace DP export: 02/08/19 9:37 Patient Name: VIVIEN REYES Page [phone] at 1046 All edits/amendments must be made on the electronic document DICTATION DATE: 02/08/19 1045 GREENSTONE POLISHER OPERATOR: LEIGH 02/08/19 1045 RPT#: [id number] DC DATE: STATUS: ADM IN [facility] [address] [place] [address] END OF REPORT
--- NOTE | 2019-02-08 10:53 | MORECARE ---
CASE MANAGEMENT DISCHARGE SUMMARY PATIENT: VIVIEN REYES SR UNIT: [id number] ADM DATE: 02/01/19 AGE: 63 : 57 SEX: M ROOM/BED: D.4485 AUTHOR: NOHEMI,DOC PHYSICIAN: REFERRING PHYSICIAN: KEELY LOZANO MD DATE OF SERVICE: 02/08/19 Discharge Plan Patient Name: VIVIEN REYES Facility: [facility]:[place] : 1955 Planned Disposition: Home Anticipated Discharge Date: Discharge Date: Expected LOS: Initial Reviewer: [email or web address] Initial Review Date: 02/01/2019 Generated: 02/08/19 11:52 am Comments DCP- Discharge Planning Updated by [email or web address]: Riddhi Verdin on 02/08/19 9:[address] Spoke to Diamante Thurston regarding referral. Riddhi Verdin RN, [facility] DCP- Discharge Planning Updated by [email or web address]: Riddhi Verdin on 02/08/19 9:[address] DC PLAN: Return home with his brother in law there at . Referral to [facility]. ANTICIPATED DC NEEDS: Wants Home Health. CM met with patient to complete initial dc planning assessment. CM educated patient on the CM role and verbal consent given by patient to complete assessment. CM verified patient's address, phone number, and emergency contact phone numbers. Patient lives at home with his brother in law staying there at . He reports he has friends that also check on him throughout the day. He is mostly able to care for himself but sometimes needs help with ADL's. He reports he has plenty of help as needed. At discharge patient plans to return home and feels this is a safe discharge. CM discussed availability of home health, rehab services, and medical equipment. Patient stated he would like to have HH at time of dc. HELENE discussed with patient and he did not have a preference on HH agencies. HELENE signed for [facility]. Copy left with patient and copy placed on his chart. Order received for HH services and referral faxed to [place]. Patient reports his brother in law will transport him home at time of discharge. CM will continue to follow and will assist as needed with dc plans/needs. Riddhi Verdin RN, CCM DCPIA - Discharge Planning Initial Assessment Updated by [email or web address]: Riddhi Verdin on 02/08/19 10:36 am * Is the patient Alert and Oriented? Yes * PCP Dr. Herrera * Pharmacy [facility] * Preadmission Environment Home with Family * ADLs Partial Dependent * Partial ADLs (Assistance needed) Bathing * Equipment Nebulizer Oxygen Rolling Walker * Other Equipment O2 with portability - [facility] is DME provider. * List name and contact numbers for known caregivers / representatives who currently or will assist patient after discharge: Ashlie Christopher [facility] [phone] * Verbal permission to speak to the caregivers and representatives has been obtained from the patient. Yes * Community resources currently utilized None * Additional services required to return to the preadmission environment? Yes * Can the patient safely return to the preadmission environment? Yes * Has this patient been hospitalized within the prior 30 days at any hospital? No Last DP export: 02/08/19 9:46 Patient Name: VIVIEN REYES Page [phone] at 1053 All edits/amendments must be made on the electronic document DICTATION DATE: 02/08/19 1052 ZINC FURNACE CHARGER: LEIGH 02/08/19 1052 RPT#: [id number] VA DATE: STATUS: ADM IN [facility] [address] [place] [address] END OF REPORT
--- NOTE | 2019-02-08 13:13 | NUR ---
CALLED TO PATIENTS ROOM. PATIENT HAVING INCREASED RESPIRATIONS AND LABORED BREATHING. PATIENT ON 02 NC @ 2L. O2 SAT 90%. CALLED RESPIRATORY AND PATIENT PLACED IN BIPAP. SPOKE WITH [place] ON UNIT AND RECEIVED ORDER FOR STAT CXR. PATIENT RESPIRATIONS NOW 20 AND O2 SAT5 99. PATIENT RESTING COMFORTABLY NOW ON RT SIDE. [facility] ONTINUE TO MONITOR. SR UP X 2 BED IN LOW POSITION AND CALL LIGHT IN REACH.
[2019-02-08 13:34] VITALS: BP 92/44
[2019-02-08 15:41] LABS: % SATURATION 11 % (15-55); IRON 34 ug/dl (35-150); TOTAL IRON BIND CAPACITY 287 ug/dl (260-445); UNSAT IRON BIND CAPACITY 253 ug/dl (150-375)
--- NOTE | 2019-02-08 16:09 | NUR ---
DR BE IN ROOM TO SEE PATIENT.
[2019-02-08 17:30] VITALS: BP 107/53
--- NOTE | 2019-02-08 17:30 | NUR ---
DR NORRIS IN ROOM NO NEW ORDERS RECEIVED.
[2019-02-08 17:56] VITALS: Ht 185.4 cm; Wt 96.5 kg
--- NOTE | 2019-02-08 18:11 | NUR ---
PUT PATIENT ACK ON BIPAP PER PATIENT REQUEST. O2 SAT 98 PRIOR TO BIPAP. WILL CONTINUE TO MONITOR SR UP X 2 BED IN LOW POSITION AND CALL LIGHT IN REACH.
[2019-02-08 20:00] VITALS: BP 116/62
--- NOTE | 2019-02-08 20:23 | NUR ---
IV TO LEFT FOREARM SWOLLEN, IV RESITED TO LEFT WRIST, 22 GUAGE, PT TOLERATED WELL. PT REFUSES TELEMETRY, STATED THAT IS GETS IN THE WAY AND ITCHES. BOX RETURNED TO [facility].
--- NOTE | 2019-02-08 23:00 | NUR ---
20 GUAGE PIV SITED TO RIGHT WRIST, PRBCS INFUSING, VITALS STABLE.
--- NOTE | 2019-02-09 02:00 | NUR ---
PRBCS FINISHED INFUSING, LINE FLUSHING SALINE, NO S/S ADVERSE REACTION NOTED.
--- NOTE | 2019-02-09 03:20 | NUR ---
RESTING WITH EYES CLOSED, RESPERATIONS EVEN, NO S/S DISTRESS NOTED.
[2019-02-09 04:00] VITALS: BP 107/59
[2019-02-09 05:07] LABS: BASOPHILS 0.3 % (0-2); EOSINOPHILS 6.3 % (0-7); HEMOGLOBIN 8.5 g/dL (13.5-17.5); IMMATURE GRANULOCYTES 0.3 % (0-5); LYMPHOCYTES 6.1 % (15-50); MCH 28.3 pg (26.0-34.0); MCHC 30.4 g/dL (31.0-37.0); MCV 93.3 fL (80.0-100.0); MEAN PLATELET VOLUME 9.4 fL (7.4-10.4); MONOCYTES 14.4 % (2-11); NEUTROPHILS 72.6 % (40-80); PLATELET COUNT 151 10x3/uL (130-400); RDW 19.5 % (11.5-14.5); WBC 7.9 10x3/uL (4.8-10.8)
[2019-02-09 05:24] LABS: ALBUMIN 2.7 g/dL (3.4-5.0); ANION GAP 10.1 mmol/L (8-16); BILIRUBIN - TOTAL 0.94 mg/dL (0.2-1.3); CARBON DIOXIDE 34.1 mmol/L (21.0-32.0); CREATININE - SERUM 2.2 mg/dL (0.6-1.3); POTASSIUM - SERUM 5.2 mmol/L (3.5-5.1); PROTEIN - SERUM 8.3 g/dL (6.4-8.2)
--- NOTE | 2019-02-09 07:47 | NUR ---
REPORT RECEIVED. WILL CONTINUE WITH POC. PT CURRENTLY LYING SEMI FOWLERS. CALL LIGHT W/I REACH. PT IS AAO AND UP AD SKY. RR EVEN AND UNLABORED ON 2L 02. PT CURRENTLY UNDERGOING RESP TRX. BOTH PIV'S SALINE LOCKED. NO S/S OF DISTRESS NOTED. PT DENIES ANY NEEDS. WILL CTM.
[2019-02-09 08:00] VITALS: BP 99/57
[2019-02-09 12:00] VITALS: BP 102/54
--- NOTE | 2019-02-09 14:35 | NUR ---
I have reviewed this patient and I concur with the Shift Assessment completed by the Licensed Practical Nurse today this shift.
[2019-02-09 16:34] VITALS: BP 108/68
[2019-02-09 20:00] VITALS: BP 142/64
--- NOTE | 2019-02-09 20:07 | NUR ---
RECIEVED LAYING IN BED WITH EYES OPEN AND TV ON. ALERT AND ORIENTED X4. UP AD SKY WITH CANE. IV TO LEFT WRIST AND RIGHT WRIST BOTH SL.. BIPAP AT BEDSIDE. RT EDUCATED PT ON HOW TO PUT THE MASK ON AND OFF. 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 DENIES ANY OTHER NEEDS AT THIS TIME.
[2019-02-10] VITALS (7 sets, daily range): BP systolic 105–126; BP diastolic 51–86
[2019-02-10 06:26] LABS: ALBUMIN 2.8 g/dL (3.4-5.0); ANION GAP 8.8 mmol/L (8-16); BILIRUBIN - TOTAL 0.82 mg/dL (0.2-1.3); CARBON DIOXIDE 36.7 mmol/L (21.0-32.0); CREATININE - SERUM 2.2 mg/dL (0.6-1.3); MAGNESIUM - SERUM 2.3 mg/dL (1.8-2.4); PHOSPHOROUS 5.7 mg/dL (2.5-4.9); POTASSIUM - SERUM 5.5 mmol/L (3.5-5.1); PROTEIN - SERUM 8.2 g/dL (6.4-8.2)
[2019-02-10 07:05] LABS: HEMATOCRIT 27.5 % (42.0-54.0); HEMOGLOBIN 8.5 g/dL (13.5-17.5); MCHC 30.9 g/dL (31.0-37.0); MCV 93.9 fL (80.0-100.0); MEAN PLATELET VOLUME 9.6 fL (7.4-10.4); PLATELET COUNT 158 10x3/uL (130-400); RBC 2.93 10x6/uL (4.20-6.10); RDW 20.1 % (11.5-14.5); WBC 7.3 10x3/uL (4.8-10.8)
--- NOTE | 2019-02-10 07:32 | NUR ---
REPORT RECEIVED. WILL CONTINUE WITH POC. PT CURRENTLY LYING SEMI FOWLERS. CALL LIGHT W/I REACH. PT IS AAO AND UP AD SKY. RR EVEN AND UNLABORED ON BIPAP. NO S/S OF DISTRESS NOTED. RIGHT AND LEFT WRIST PIV IS SALINE LOCKED. PT DENIES ANY NEEDS. WILL CTM.
[2019-02-10 09:02] LABS: BASOPHILS 1 % (0-2); EOSINOPHILS 5 % (0-7); HYPOCHROMASIA OCC; LYMPHOCYTES 5 % (15-50); MONOCYTES 13 % (2-11); NEUTROPHILS 76 % (40-80); PLATELET ESTIMATE NORMAL; ROULEAUX OCC
--- NOTE | 2019-02-10 12:28 | NUR ---
BEGAN DOBUTAMINE DRIP @14ML/HR OR 5MCG/KG/MIN VIA R.WRIST PIV. PT DENIES ANY NEEDS. WILL CTM.
--- NOTE | 2019-02-10 13:41 | NUR ---
I have reviewed this patient and I concur with the Shift Assessment completed by the Licensed Practical Nurse today this shift.
--- NOTE | 2019-02-10 18:16 | NUR ---
PIV TO THE RIGHT WRIST INFILTRATED. REMOVED PIV WITH CATHETER TIP FULLY INTACT. INITIATED NEW PIV 22GA TO THE LEFT UPPER ARM X1 ATTEMPT. PT TOLERATED WELL. DOBUTAMINE INFUSING @5MCG/KG/MIN VIA LEFT WRIST PIV. WILL CTM. BIPAP CURRENTLY ON PT.
--- NOTE | 2019-02-10 19:12 | NUR ---
RECIEVED UP IN BED WITH EYESS OPEN AND TV ON. ALERT AND ORIENTED X4. UP AD SKY. IV TO LEFT WRIST WITH DOBUTAMINE AT 14.1 AND IV TO UPPER LEFT ARM SL.. O2@ 3 LITERS PER N/C. DENIES ANY PAIN OR NEEDS AT THIS TIME.
[2019-02-11] VITALS: BP 110/60
[2019-02-11 04:30] VITALS: BP 102/69
[2019-02-11 05:32] LABS: BASOPHILS 0.3 % (0-2); EOSINOPHILS 4.4 % (0-7); HEMATOCRIT 25.8 % (42.0-54.0); HEMOGLOBIN 7.7 g/dL (13.5-17.5); IMMATURE GRANULOCYTES 0.1 % (0-5); LYMPHOCYTES 9.2 % (15-50); MCH 28.4 pg (26.0-34.0); MCHC 29.8 g/dL (31.0-37.0); MCV 95.2 fL (80.0-100.0); MEAN PLATELET VOLUME 9.5 fL (7.4-10.4); MONOCYTES 10.7 % (2-11); NEUTROPHILS 75.3 % (40-80); PLATELET COUNT 159 10x3/uL (130-400); RBC 2.71 10x6/uL (4.20-6.10); RDW 19.6 % (11.5-14.5); WBC 7.5 10x3/uL (4.8-10.8)
[2019-02-11 05:45] LABS: ALBUMIN 2.7 g/dL (3.4-5.0); ANION GAP 9.9 mmol/L (8-16); BILIRUBIN - TOTAL 0.94 mg/dL (0.2-1.3); CALCIUM 9.2 mg/dL (8.5-10.1); CARBON DIOXIDE 36.8 mmol/L (21.0-32.0); CREATININE - SERUM 1.9 mg/dL (0.6-1.3); MAGNESIUM - SERUM 2.3 mg/dL (1.8-2.4); POTASSIUM - SERUM 4.7 mmol/L (3.5-5.1); PROTEIN - SERUM 8.3 g/dL (6.4-8.2)
[2019-02-11 07:53] VITALS: BP 115/79
--- NOTE | 2019-02-11 08:42 | NUR ---
AM MEDS GIVEN AT THIS TIME, ALSO GAVE TYLENO FOR PAIN. PT DENIES ANY NEEDS AT THIS TIME, CALL LIGHT IN REACH, NAD NOTED, WILL CONTINUE TO MONITOR.
--- NOTE | 2019-02-11 11:19 | NUR ---
PT RESTING COMFORTABLY IN BED, WEARING BIPAP. CALL LIGHT IN REACH, NAD NOTED,WILL CONTINUE TO MONITOR.
[2019-02-11 11:27] VITALS: BP 134/58
[2019-02-11 15:44] VITALS: BP 116/61
--- NOTE | 2019-02-11 18:24 | NUR ---
CALLED [facility] AND INFORMED THEM THAT PT WANTS HIS BIPAP ON. WAS INFORMED THAT THEY ARE GETTING REPORT RIGHT NOW, WILL BE UP AFTER THEY ARE DONE.
--- NOTE | 2019-02-11 19:56 | NUR ---
RECIEVED UP IN BED WIRH EYES OPEN AND TV ON. BIPAP IN PLACE. LUNG SOUNDS CLEAR BILATERALLY. ABSX4. UP AD SKY TO B/R. IV TO LEFT WRIST SL.. ALSO, IV TO LEFT UPPER ARM WITH DOBUTAMINE AT 14CC/HR. DENIES ANY NEEDS AT THIS TIME.
[2019-02-11 20:00] VITALS: BP 106/66
[2019-02-12] VITALS: BP 102/68
[2019-02-12 04:00] VITALS: BP 111/62
[2019-02-12 05:39] LABS: BASOPHILS 0.3 % (0-2); EOSINOPHILS 5.7 % (0-7); HEMATOCRIT 25.9 % (42.0-54.0); HEMOGLOBIN 7.7 g/dL (13.5-17.5); IMMATURE GRANULOCYTES 0.1 % (0-5); LYMPHOCYTES 4.8 % (15-50); MCH 28.5 pg (26.0-34.0); MCHC 29.7 g/dL (31.0-37.0); MCV 95.9 fL (80.0-100.0); MEAN PLATELET VOLUME 9.4 fL (7.4-10.4); MONOCYTES 13.1 % (2-11); PLATELET COUNT 169 10x3/uL (130-400); RDW 19.9 % (11.5-14.5); WBC 7.4 10x3/uL (4.8-10.8)
[2019-02-12 06:04] LABS: ALBUMIN 2.6 g/dL (3.4-5.0); ANION GAP 7.9 mmol/L (8-16); BILIRUBIN - TOTAL 0.83 mg/dL (0.2-1.3); CARBON DIOXIDE 37.5 mmol/L (21.0-32.0); CREATININE - SERUM 1.9 mg/dL (0.6-1.3); MAGNESIUM - SERUM 2.3 mg/dL (1.8-2.4); PHOSPHOROUS 5.1 mg/dL (2.5-4.9); POTASSIUM - SERUM 4.4 mmol/L (3.5-5.1); PROTEIN - SERUM 8.2 g/dL (6.4-8.2)
--- NOTE | 2019-02-12 07:20 | NUR ---
RECIEVE REPORT. ALERT AND ORIENTED X4. RESTING IN BED. RECIEVING UPDRAFT TREATMENT. DENIES ANY NEEDS AT THIS TIME. CONTINUE PLAN OF CARE AND SAFETY PRECAUTIONS.
[2019-02-12 09:33] VITALS: BP 124/68
[2019-02-12 13:32] VITALS: BP 141/87
[2019-02-12 17:32] VITALS: BP 105/51
--- NOTE | 2019-02-12 18:28 | NUR ---
ALERT AND ORIENTED X4. LAYING IN BED. BIPAP ON. DOBUTAMINE DRIP INFUSING ORDERED. SINUS RTHYM ON TELEMETRY. LAB HAS NOT CALLED FOR BLOOD. CALL LAB. LAB EXPLAINS ORDER TO TRANSFUSE MUST BE ORDERED. ENTER ORDER FOR TRANSFUSION. VICTOR HUGO CHANG RN MACHINE FELLER. CONTINUE PLAN OF CARE AND SAFETY PRECAUTIONS.
--- NOTE | 2019-02-12 19:22 | NUR ---
STARTED A 20 GA TO LEFT FA FOR BLOOD PRODUCTS.
[2019-02-12 20:00] VITALS: BP 120/72
--- NOTE | 2019-02-12 23:18 | NUR ---
FIRST UNIT OF PRBC STATRTED AT 1944 AND COMPLETED. SECOND UNIT BEING GIVEN AT THIS TIME. NO ADDVERSE EFFECTS OBSERVED.
[2019-02-13] VITALS: BP 123/52
[2019-02-13 04:30] VITALS: BP 131/68
--- NOTE | 2019-02-13 05:18 | NUR ---
C/O PAIN TO LEFT WRIST AT IV SITE. IV SL.. D/C'D BY THIS NURSE.
[2019-02-13 06:17] LABS: ALBUMIN 2.7 g/dL (3.4-5.0); ANION GAP 8.4 mmol/L (8-16); BASOPHILS 0.1 % (0-2); BILIRUBIN - TOTAL 1.13 mg/dL (0.2-1.3); CALCIUM 8.9 mg/dL (8.5-10.1); CARBON DIOXIDE 38.1 mmol/L (21.0-32.0); CREATININE - SERUM 1.9 mg/dL (0.6-1.3); EOSINOPHILS 8.3 % (0-7); HEMATOCRIT 29.5 % (42.0-54.0); IMMATURE GRANULOCYTES 0.5 % (0-5); LYMPHOCYTES 5.2 % (15-50); MAGNESIUM - SERUM 2.1 mg/dL (1.8-2.4); MCH 29.1 pg (26.0-34.0); MCHC 30.5 g/dL (31.0-37.0); MCV 95.5 fL (80.0-100.0); MEAN PLATELET VOLUME 9.4 fL (7.4-10.4); MONOCYTES 11.7 % (2-11); NEUTROPHILS 74.2 % (40-80); PHOSPHOROUS 4.5 mg/dL (2.5-4.9); PLATELET COUNT 177 10x3/uL (130-400); POTASSIUM - SERUM 4.5 mmol/L (3.5-5.1); PROTEIN - SERUM 8.1 g/dL (6.4-8.2); RBC 3.09 10x6/uL (4.20-6.10); RDW 19.4 % (11.5-14.5); WBC 7.7 10x3/uL (4.8-10.8)
[2019-02-13 09:04] VITALS: BP 108/61
--- NOTE | 2019-02-13 13:34 | NUR ---
Nutrition Follow-up: Overall good/fair appetite/PO intake. Ate 100% of breakfast this AM. Diet: Renal PO intake: 75% avg x 4 meals No new wt Last BM: 02/13 Labs reviewed Meds noted: Lasix, Bumex, Lactulose -Continue current diet as tolerated. -RD following.
[2019-02-13 13:54] VITALS: BP 97/59
[2019-02-13 17:00] VITALS: BP 119/74
--- NOTE | 2019-02-13 17:00 | MORECARE ---
CASE MANAGEMENT DISCHARGE SUMMARY PATIENT: VIVIEN REYES UNIT: [id number] ADM DATE: 02/01/19 AGE: 63 : 57 SEX: M ROOM/BED: D.7872 AUTHOR: NOHEMI,DOC PHYSICIAN: REFERRING PHYSICIAN: KEELY LOZANO MD DATE OF SERVICE: 02/13/19 Discharge Plan Patient Name: VIVIEN REYES Facility: [facility]:[place] : 1955 Planned Disposition: Home Anticipated Discharge Date: Discharge Date: Expected LOS: Initial Reviewer: [email or web address] Initial Review Date: 02/01/2019 Generated: 02/13/19 5:59 pm Comments DCP- Discharge Planning Updated by [email or web address]: Robel Brown on 02/13/19 3:[address] Patient Name: VIVIEN REYES Encounter No: [id number] : 1955 Primary Insurance: [facility] MEDICARE SOLUTIONS Anticipated DC Date: Planned Disposition: Home WITH HOME HEALTH PLANNED EXTERAL PROVIDER: [facility] DCP follow-up note: CM MET WITH PT IN ROOM TO DISCUSS DISCHARGE NEEDS AND PLANNING. CM DISCUSSED AVAILABILITY OF HOME HEALTH, REHAB SERVICES AND MEDICAL EQUIPMENT. PT REFUSES [facility] OR GROUP HOME HOME PLACEMENT. PT PLANS TO DISCHARGE HOME AND WILL ACCEPT [facility]. PT DENIES FURTHER DISCHARGE NEEDS. FAMILY TO TRANSPORT HOME AT DISCHARGE. PT REFUSES [facility] AND GROUP HOME FACILITY PLACEMENT. PT WILL ACCEPT HOME HEALTH WITH [facility] FOR DISCHARGE HOME. CM TO FOLLOW AND ASSIST NEEDED. Robel Brown, CASE MANAGEMENT DCP- Discharge Planning Updated by [email or web address]: Riddhi Verdin on 02/08/19 9:[address] Spoke to Diam[facility] Thurston regarding referral. Riddhi Verdin RN, [facility] DCP- Discharge Planning Updated by [email or web address]: Riddhi Verdin on 02/08/19 9:[address] DC PLAN: Return home with his brother in law there at . Referral to [facility] . ANTICIPATED DC NEEDS: Wants Home Health. CM met with patient to complete initial dc planning assessment. CM educated patient on the CM role and verbal consent given by patient to complete assessment. CM verified patient's address, phone number, and emergency contact phone numbers. Patient lives at home with his brother in law staying there at . He reports he has friends that also check on him throughout the day. He is mostly able to care for himself but sometimes needs help with ADL's. He reports he has plenty of help as needed. At discharge patient plans to return home and feels this is a safe discharge. CM discussed availability of home health, rehab services, and medical equipment. Patient stated he would like to have HH at time of dc. HELENE discussed with patient and he did not have a preference on HH agencies. HELENE signed for [facility]. Copy left with patient and copy placed on his chart. Order received for HH services and referral faxed to [facility]. Patient reports his brother in law will transport him home at time of discharge. CM will continue to follow and will assist as needed with dc plans/needs. Riddhi Verdin RN, [facility] DCPIA - Discharge Planning Initial Assessment Updated by [email or web address]: Riddhi Verdin on 02/08/19 10:36 am * Is the patient Alert and Oriented? Yes * PCP Dr. Herrera * Pharmacy [facility] * Preadmission Environment Home with Family * ADLs Partial Dependent * Partial ADLs (Assistance needed) Bathing * Equipment Nebulizer Oxygen Rolling Walker * Other Equipment O2 with portability - [employer] is DME provider. * List name and contact numbers for known caregivers / representatives who currently or will assist patient after discharge: Ashlie Christopher [facility] - [phone] * Verbal permission to speak to the caregivers and representatives has been obtained from the patient. Yes * Community resources currently utilized None * Additional services required to return to the preadmission environment? Yes * Can the patient safely return to the preadmission environment? Yes * Has this patient been hospitalized within the prior 30 days at any hospital? No Last DP export: 02/08/19 9:53 Patient Name: VIVIEN REYES Page [phone] at 1700 All edits/amendments must be made on the electronic document DICTATION DATE: 02/13/191658 CAMPAIGN ASSOCIATE: LEIGH 02/13/191658 RPT#: [id number] DC DATE: STATUS: ADM IN [facility] [address] [place] [address] END OF REPORT
[2019-02-13 20:00] VITALS: BP 108/75
[2019-02-14] VITALS: BP 103/71
--- NOTE | 2019-02-14 03:50 | NUR ---
I have reviewed this patient and I concur with the Shift Assessment completed by the Licensed Practical Nurse today this shift.
[2019-02-14 04:00] VITALS: BP 111/67
[2019-02-14 06:03] LABS: BASOPHILS 0.1 % (0-2); EOSINOPHILS 9.9 % (0-7); HEMATOCRIT 28.5 % (42.0-54.0); HEMOGLOBIN 8.6 g/dL (13.5-17.5); IMMATURE GRANULOCYTES 0.3 % (0-5); LYMPHOCYTES 9.5 % (15-50); MCH 28.8 pg (26.0-34.0); MCHC 30.2 g/dL (31.0-37.0); MCV 95.3 fL (80.0-100.0); MEAN PLATELET VOLUME 9.3 fL (7.4-10.4); MONOCYTES 7.6 % (2-11); NEUTROPHILS 72.6 % (40-80); PLATELET COUNT 170 10x3/uL (130-400); RBC 2.99 10x6/uL (4.20-6.10); RDW 19.1 % (11.5-14.5); WBC 6.7 10x3/uL (4.8-10.8)
[2019-02-14 06:28] LABS: ANION GAP 8.1 mmol/L (8-16); CALCIUM 9.1 mg/dL (8.5-10.1); CARBON DIOXIDE 37.4 mmol/L (21.0-32.0); CREATININE - SERUM 1.9 mg/dL (0.6-1.3); PHOSPHOROUS 4.4 mg/dL (2.5-4.9); POTASSIUM - SERUM 4.5 mmol/L (3.5-5.1)
[2019-02-14 08:41] VITALS: BP 132/54
[2019-02-14 13:35] VITALS: BP 100/62
[2019-02-14 17:43] VITALS: BP 96/58
[2019-02-14 20:00] VITALS: BP 110/55
--- NOTE | 2019-02-14 20:39 | NUR ---
HS MEDS GIVEN, PLACED PT ON BIPAP WITH NEW MASK.
--- NOTE | 2019-02-14 21:03 | NUR ---
SPOKE WITH LIZZY IN RT, ASKED IF SHE COULD GET PT A NEW MASK FOR HIS BIPAP. PT HAS HAD SEVERAL NOSE BLEEDS AND MASK IS COVERED IN DRIED BLOOD.
[2019-02-15] VITALS (15 sets, daily range): BP systolic 85–116; BP diastolic 9–73
--- NOTE | 2019-02-15 02:55 | NUR ---
I have reviewed this patient and I concur with the Shift Assessment completed by the Licensed Practical Nurse today this shift.
--- NOTE | 2019-02-15 03:16 | NUR ---
RESTING WITH EYES CLOSED, RESPERATIONS EVEN, NO S/S DISTRESS NOTED.
--- NOTE | 2019-02-15 04:43 | NUR ---
RAPID CALLED TO PATIENT ROOM D/T VOMITING UP BLOOD. REPORTED THAT PATIENT WAS HAVING DIFFICULTY BREATHING WITH BIPAP. BIPAP HOSE HAD CAME LOOSE AND WAS BEING FIXED WHEN PATIENT STARTED VOMITING BRIGHT RED BLOOD. IT WAS NOTED IN SMALL CUP AND ON BED APPROX. 150-200ML OF BLOOD AND CLOTS. H AND H COLLECTED. PATIENT HAS WHEEZING AND RHONCHI THROUGHOUT ALL LOBES, HYPOACTIVE BOWEL SOUNDS WITH DISTENDED SEMI FIRM ABDOMEN. NURSE STATES PATIENTS ABDOMEN HAS BEEN THIS WAY WITH NO CHANGES.
--- NOTE | 2019-02-15 04:45 | NUR ---
PTS CL ON, NURSING STAFF ENTERED ROOM, PT VOMITING BLOOD. RAPID RESPONSE CALLED. SUCTION SET UP IN ROOM. RAPID RESPONSE TEAM AT BED SIDE. VITALS STABLE, BP 110/70, HR 78, TEMP 98.4, O2 SATS 97% ON O2 AT 4 LITERS.
[2019-02-15 05:04] LABS: BASOPHILS 0.1 % (0-2); EOSINOPHILS 10.4 % (0-7); IMMATURE GRANULOCYTES 0.1 % (0-5); LYMPHOCYTES 11.6 % (15-50); MCH 29.1 pg (26.0-34.0); MCHC 30.4 g/dL (31.0-37.0); MCV 95.6 fL (80.0-100.0); MEAN PLATELET VOLUME 8.8 fL (7.4-10.4); MONOCYTES 9.2 % (2-11); NEUTROPHILS 68.6 % (40-80); PLATELET COUNT 167 10x3/uL (130-400); RBC 2.51 10x6/uL (4.20-6.10); RDW 19.2 % (11.5-14.5); WBC 7.5 10x3/uL (4.8-10.8)
[2019-02-15 05:07] LABS: HEMOGLOBIN 7.3 g/dL (13.5-17.5)
[2019-02-15 05:18] LABS: ANION GAP 7.1 mmol/L (8-16); CALCIUM 8.9 mg/dL (8.5-10.1); CARBON DIOXIDE 37.8 mmol/L (21.0-32.0); INR 1.33 (0.85-1.17); POTASSIUM - SERUM 4.9 mmol/L (3.5-5.1); PROTIME 15.9 SECONDS (11.6-15.0)
[2019-02-15 05:19] LABS: APTT 47.5 SECONDS (22.8-39.4)
--- NOTE | 2019-02-15 05:36 | NUR ---
PT UP TO BR, BRIGHT RED BLOOD NOTED IN STOOL.
--- NOTE | 2019-02-15 06:10 | NUR ---
PRBCS INFUSING TO RIGHT FOREARM 20 GUAGE PIV. VITALS STABLE.
--- NOTE | 2019-02-15 07:27 | NUR ---
PT RESTING. DENIES NEEDS AT THIS TIME. PRBC INFUSING @ 120MLS/HR TO LEFT FORARM PIV. PT TOLERATING WELL. VSS AT THIS TIME. SEE TRANSFUSION SHEET. RIGHT SIDE OF FACE, ARM, AND LEG SWOLLEN AND WEEPING. DARRYL AVALOS AWARE OF THIS. RR EVEN AND UNLABORED. BED IN LOWEST POSITION. CALL LIGHT WITHIN REACH. WILL CONTINUE TO MONITOR.
--- NOTE | 2019-02-15 08:18 | NUR ---
PT GOT UP TO BATHROOM ON HIS OWN. PT INSTRUCTED TO CALL BEFORE GETTING UP. PT ASSISTED BACK TO BED. IV REDRESSED UPON REQUEST. STOOL SAMPLE COLLECTED AND SENT TO LAB. WILL CONTINUE TO MONITOR.
[2019-02-15 11:26] LABS: HEMOGLOBIN 7.7 g/dL (13.5-17.5)
--- NOTE | 2019-02-15 11:50 | NUR ---
PT ARRIVED TO ICU FROM [facility] VIA BED. PT ALERT AND ANSWERS QUESTIONS. PT IS BEING TRANSFERRED DUE TO THROWING UP BLOOD AND HAS HAD SOME DARK TARRY STOOLS. PT IS ON 3L NC. 1/2 U PRBC INFUSING AT THIS TIME. VSS AND WNL. WILL CONT TO FOLLOW POC
--- NOTE | 2019-02-15 13:00 | NUR ---
PT HAD 2 LARGE BM OF NOLA STOOLS. FULL LINEN CHANGE PROVIDED. CALL LIGHT WITHIN REACH, WILL CONT TO FOLLOW POC
--- NOTE | 2019-02-15 14:00 | NUR ---
PT HAD A LARGE BM OF NOLA STOOL. VSS AND WNL. FULL LINEN CHANGE PROVIDED. CALL LIGHT WITHIN REACH. DENIES ANY NEEDS AT THIS TIME. WILL CONT TO FOLLOW POC
--- NOTE | 2019-02-15 14:52 | NUR ---
CALLED BECAUSE THERE WERE 2 ORDERS TO GIVE LASIX BETWEEN BLOOD PRODUCTS ON THE MAY. PER , D/C ORDERS. NEW ORDER RECIEVED TO OBTAIN PT, PTT, AND INR AFTER SECOND UNIT OF PRBC HAS BEEN GIVEN
--- NOTE | 2019-02-15 15:48 | NUR ---
PAGED TO SEE IF SHE WOULD LIKE ANY MORE PRBC READY FOR PT SHOULD HE NEED IT AND NEW ORDER RECIEVED TO ORDER 3 U PRBC ON STANDBY FOR PT.
--- NOTE | 2019-02-15 15:53 | NUR ---
REPORT RECIEVED FROM JAGDISH CUELLAR AT THIS TIME
--- NOTE | 2019-02-15 16:05 | NUR ---
2ND UNIT INFUSING. CALL OF FFP DONE.
--- NOTE | 2019-02-15 16:31 | NUR ---
COREG NOT GIVEN DUE TO HYPOTENSION AND HR OF 62. 89/60 BP
--- NOTE | 2019-02-15 16:33 | NUR ---
PATIENT IS NOT ORIENTED TO SITUATION NOR TIME. PATIENT KEEPS REPEATING March WHEN STATED WHAT MONTH IT IS. PATIENT DOES NOT KNOW WHAT UNIT HE IS IN. IS ORIENTED TO HOSPITAL.
--- NOTE | 2019-02-15 16:33 | NUR ---
1ST UNIT OF PLATELETS INFUSING
[2019-02-15 17:42] LABS: HEMATOCRIT 28.1 % (42.0-54.0); HEMOGLOBIN 8.7 g/dL (13.5-17.5)
--- NOTE | 2019-02-15 17:42 | NUR ---
linen change and chg bath
--- NOTE | 2019-02-15 17:43 | NUR ---
scars on coccyx area found during chg bath
--- NOTE | 2019-02-15 18:16 | NUR ---
CALLED LAB TO WHY PT, PTT, INR WERE NOT DRAWN. STATED THEY WOULD HAVE SOMEONE COME DO IT
[2019-02-15 18:55] LABS: INR 1.23 (0.85-1.17)
[2019-02-15 18:58] LABS: APTT 36.8 SECONDS (22.8-39.4)
--- NOTE | 2019-02-15 19:14 | NUR ---
no orders given. stated if he dropped we will transfuse tomororw
--- NOTE | 2019-02-15 19:30 | NUR ---
PT RECEIVED WITH EYES CLOSED AND CHEST RISING. EASILY AWOKEN TO VERBAL STIMULI. NO S/S OF DISTRESS. 200ML URINE EMPTIED FROM URINAL. NO NEEDS MADE KNOWN. CALL LIGHT IN REACH. WILL CONTINUE TO OBSERVE.
--- NOTE | 2019-02-15 21:51 | NUR ---
MEDICATIONS GIVEN AT 2039 AND SCANNED BUT MediaspectrumTECH SHUTDOWN BEFORE CLOSING OUT EMAR. UNABLE TO COMPLETE DUE TO MEDICATIONS SCANNED.
[2019-02-15 23:35] LABS: HEMATOCRIT 28.6 % (42.0-54.0); HEMOGLOBIN 9.3 g/dL (13.5-17.5)
--- NOTE | 2019-02-15 23:41 | NUR ---
PT WITH EYES CLOSED AND CHEST RISING. NO S/S OF DISTRESS. EASILY AWOKEN TO VERBAL STIMULI. NO NEEDS OR CONCERNS NOTED. H&H DRAWN AND RESULTS ARE TRENDING UP AT THIS TIME. CALL LIGHT IN REACH. WILL CONTINUE TO OBSERVE.
[2019-02-16] VITALS (13 sets, daily range): BP systolic 90–129; BP diastolic 60–77
[2019-02-16 03:46] LABS: BASOPHILS 0.3 % (0-2); EOSINOPHILS 9.3 % (0-7); HEMOGLOBIN 9.1 g/dL (13.5-17.5); IMMATURE GRANULOCYTES 0.1 % (0-5); LYMPHOCYTES 7.5 % (15-50); MCH 29.4 pg (26.0-34.0); MCHC 31.4 g/dL (31.0-37.0); MCV 93.9 fL (80.0-100.0); MEAN PLATELET VOLUME 9.7 fL (7.4-10.4); MONOCYTES 10.7 % (2-11); NEUTROPHILS 72.1 % (40-80); RDW 18.8 % (11.5-14.5); WBC 7.7 10x3/uL (4.8-10.8)
[2019-02-16 03:52] LABS: PLATELET COUNT 258 10x3/uL (130-400); RBC 3.09 10x6/uL (4.20-6.10)
[2019-02-16 03:59] LABS: ANION GAP 11.2 mmol/L (8-16); CALCIUM 9.6 mg/dL (8.5-10.1); CARBON DIOXIDE 36.1 mmol/L (21.0-32.0); CREATININE - SERUM 1.9 mg/dL (0.6-1.3); POTASSIUM - SERUM 4.3 mmol/L (3.5-5.1)
--- NOTE | 2019-02-16 05:25 | NUR ---
PT GIVEN CHG BATH WITH COMPLETE LINEN CHANGE. TOLERATED WELL. WILL CONTINUE TO OBSERVE. CALL LIGHT IN REACH.
--- NOTE | 2019-02-16 07:47 | NUR ---
REPORT RECIEVED. PT LYING ON RIGHT SIDE. RR EVEN AND UNLABORED ON 3L NC. PT HAS A L UPPER ARM AND A L FA PIV BOTH SL. HE IS A&O. BED LOCKED AND IN LOWEST POSITION, CALL LIGHT WITHIN REACH. WILL CTM
--- NOTE | 2019-02-16 11:32 | NUR ---
ON FLOOR DOING ROUNDS, GAVE ME ORDERS TO TRANSFER PT TO FLOOR.
--- NOTE | 2019-02-16 12:15 | NUR ---
REPORT CALLED TO ALISA BROWN. PT IVANIA TO ROOM 2129 VIA [employer].
--- NOTE | 2019-02-16 12:18 | NUR ---
PT AWAKE, SITTING UP IN BED RESTING QUIETLY. NO DISTRESS NOTED.
--- NOTE | 2019-02-16 13:28 | NUR ---
RECIEVED PT FROM ICU, ALERT AND ORIENTED DENIES PAIN AT THIS TIME. PROVIDED URINAL, NO CMPLAINTS OR CONCERNS AT THIS TIME. CL IN AAC, SRX2, NO FAMILY AT BEDSIDE.
--- NOTE | 2019-02-16 18:32 | NUR ---
PT ALERT AND ORIENTED, DENIES PAIN/NAUSESA/VOMMITING OR DIAHREAH AT THIS TIME. PT PLACED HIS BIPAP ON HISSELF. PROVIDED NEW URINEL AND WATER, NO COMPLAINTS OR CONCERNS AT THIS TIME, ALL QUESTIONS ANSERED TO THE BEST OF MY ABILITY. CL IN REACH, SRX2, SON AT BEDSIDE.
--- NOTE | 2019-02-16 19:10 | NUR ---
PT AWAKE AND ALERT WITH BIPAP IN PLACE I ATTEMPTED TO HELP WITH COMFORT BUT PT DOES NOT MAKE CLEAR WHAT HE NEEDS BED IS LOW AND LOCKED CALL LIGHT FOUND AND GIVEN BACK TO PT NO ACTIVE BLEEDING NOTED
[2019-02-17] VITALS: BP 146/88
--- NOTE | 2019-02-17 02:45 | NUR ---
I have reviewed this patient and I concur with the Shift Assessment completed by the Licensed Practical Nurse today this shift.
[2019-02-17 04:00] VITALS: BP 121/57
[2019-02-17 05:47] LABS: BASOPHILS 0.3 % (0-2); HEMATOCRIT 28.8 % (42.0-54.0); MCH 29.6 pg (26.0-34.0); MCHC 31.3 g/dL (31.0-37.0); MCV 94.7 fL (80.0-100.0); MEAN PLATELET VOLUME 9.3 fL (7.4-10.4); MONOCYTES 9.1 % (2-11); NEUTROPHILS 66.6 % (40-80); PLATELET COUNT 230 10x3/uL (130-400); RBC 3.04 10x6/uL (4.20-6.10); RDW 18.4 % (11.5-14.5); WBC 6.6 10x3/uL (4.8-10.8)
[2019-02-17 06:02] LABS: ANION GAP 10.8 mmol/L (8-16); CALCIUM 9.4 mg/dL (8.5-10.1); CARBON DIOXIDE 34.1 mmol/L (21.0-32.0); CREATININE - SERUM 2.2 mg/dL (0.6-1.3); POTASSIUM - SERUM 3.9 mmol/L (3.5-5.1)
[2019-02-17 08:50] VITALS: BP 150/103
--- NOTE | 2019-02-17 10:12 | NUR ---
RIGHT FA 20G IV AND LEFT UPPER ARM IV BOTH FLUSHED WITH 10ML OF NS AND SL.
--- NOTE | 2019-02-17 13:39 | NUR ---
Nutrition Follow Up: Diet: Renal (swallowing precautions) PO intake: 68% x 10 meals (75% of brk this morning) No N/V/D/C Wt: 213 lbs (205 lbs on Feb 14) BM x 0 (02/17) Meds: Protonix, lovenox, spironolactone Labs: BUN: 71(H), Creatinine: 2.2(H), CRP: 4.0(H), Vit B12: 1022(H) Clinical Dietitian to continue following DHS
[2019-02-17 13:42] VITALS: BP 106/49
[2019-02-17 18:26] VITALS: BP 115/65
--- NOTE | 2019-02-17 18:27 | NUR ---
I CONCUR WITH TRAM INSPECTOR ASSESSMENT OF THIS PATIENT.
--- NOTE | 2019-02-17 19:35 | NUR ---
REPORT RECEIVED. PT IN BED RESTING WITH BIPAP ON AT 40%. NO S/S OF DISTRESS NOTED. NO VOICED C/O OR CONCERNS. SRX2, CALL LIGHT IN REACH. WILL CTM.
[2019-02-17 20:00] VITALS: BP 116/62
[2019-02-18] VITALS: BP 101/54
--- NOTE | 2019-02-18 03:38 | NUR ---
RESTING QUIETLY DURING THE NIGHT. NO C/O, OR CHANGES NOTED. WILL CTM.
[2019-02-18 04:30] VITALS: BP 100/50
[2019-02-18 06:03] LABS: BASOPHILS 0.3 % (0-2); EOSINOPHILS 12.1 % (0-7); HEMATOCRIT 28.8 % (42.0-54.0); HEMOGLOBIN 8.9 g/dL (13.5-17.5); IMMATURE GRANULOCYTES 0.2 % (0-5); LYMPHOCYTES 12.4 % (15-50); MCH 29.6 pg (26.0-34.0); MCHC 30.9 g/dL (31.0-37.0); MCV 95.7 fL (80.0-100.0); MEAN PLATELET VOLUME 9.5 fL (7.4-10.4); MONOCYTES 10.6 % (2-11); NEUTROPHILS 64.4 % (40-80); PLATELET COUNT 226 10x3/uL (130-400); RBC 3.01 10x6/uL (4.20-6.10); RDW 18.5 % (11.5-14.5); WBC 6.4 10x3/uL (4.8-10.8)
[2019-02-18 06:13] LABS: ANION GAP 10.7 mmol/L (8-16); CALCIUM 8.9 mg/dL (8.5-10.1); CARBON DIOXIDE 33.4 mmol/L (21.0-32.0); POTASSIUM - SERUM 4.1 mmol/L (3.5-5.1)
--- NOTE | 2019-02-18 08:04 | NUR ---
ASSESSMENT DONE. DENIES NEEDS
[2019-02-18 08:36] VITALS: BP 96/45
--- NOTE | 2019-02-18 09:49 | NUR ---
I have reviewed this patient and I concur with the Shift Assessment completed by the Licensed Practical Nurse today this shift.
[2019-02-18 12:30] VITALS: BP 101/51
[2019-02-18 16:07] VITALS: BP 95/43
[2019-02-18 20:03] VITALS: BP 116/68
--- NOTE | 2019-02-18 20:29 | NUR ---
INITIAL ROUNDS COMPLETED AT 1915 HRS. PT WATCHING TV. NO DISTRESS NOTED. ASSESSMENT COMPLETED AT 1945 HRS. PT ALERT AND ORIENTED TO PERSON, PLACE AND TIME. CANO. R NECK SWOLLEN. IV TO LFA AND UPPER L ARM SL. O2 3LNC. LIPS CRACKED AND BLEEDING. R ARM WITH 1+EDEMA. LUNGS DIMINISHED IN BASES BILAT. ABD SOFT WITH ACTIVE BS NOTED. 1+EDEMA TO FET BILAT. TYLENOL 650MG PO GIVEN FOR C/O OSBORN. WILL CONTINUE TO MONITOR. SR UP X2, CALL LIGHT WITHIN REACH.
--- NOTE | 2019-02-18 21:46 | NUR ---
PM MEDS GIVEN. PT STATES OSBORN NOT BAD. SR UP X1, CALL LIGHT WITHIN REACH.
--- NOTE | 2019-02-19 00:18 | NUR ---
BIPAP OFF PER PT. O2 3LNC BACK ON. SR UP X2, CALL LGHT WITHIN REACH.
[2019-02-19 00:30] VITALS: BP 98/49
--- NOTE | 2019-02-19 02:03 | NUR ---
PT RESTING WITH EYES CLOSED. RESP EVEN AND REGULAR. SR UP X2, CALL LIGHT WITHIN REACH.
--- NOTE | 2019-02-19 04:13 | NUR ---
PT RESTING WITH EYES CLOSED. RESP EVEN AND REGULAR. SR UP X2, CALL LIGHT WITHIN REACH.
[2019-02-19 04:46] VITALS: BP 122/53
[2019-02-19 06:24] LABS: BASOPHILS 0.2 % (0-2); EOSINOPHILS 9.5 % (0-7); HEMATOCRIT 27.2 % (42.0-54.0); HEMOGLOBIN 8.4 g/dL (13.5-17.5); IMMATURE GRANULOCYTES 0.2 % (0-5); LYMPHOCYTES 12.9 % (15-50); MCH 29.7 pg (26.0-34.0); MCHC 30.9 g/dL (31.0-37.0); MCV 96.1 fL (80.0-100.0); MEAN PLATELET VOLUME 9.4 fL (7.4-10.4); MONOCYTES 11.6 % (2-11); NEUTROPHILS 65.6 % (40-80); PLATELET COUNT 202 10x3/uL (130-400); RBC 2.83 10x6/uL (4.20-6.10); RDW 18.5 % (11.5-14.5); WBC 6.1 10x3/uL (4.8-10.8)
[2019-02-19 06:46] LABS: ALBUMIN 2.7 g/dL (3.4-5.0); BILIRUBIN - TOTAL 0.61 mg/dL (0.2-1.3); CARBON DIOXIDE 31.7 mmol/L (21.0-32.0); CREATININE - SERUM 1.9 mg/dL (0.6-1.3); POTASSIUM - SERUM 3.7 mmol/L (3.5-5.1)
--- NOTE | 2019-02-19 06:52 | NUR ---
VSS THROUGHOUT NIGHT. PT STATED TYLENOL ALLEVIATED OSBORN. NEEDS MET; WILL CONTINUE TO MONITOR.
[2019-02-19 08:00] VITALS: BP 112/59
[2019-02-19 12:00] VITALS: BP 108/72
[2019-02-19 16:00] VITALS: BP 110/68
--- NOTE | 2019-02-19 19:36 | NUR ---
REPORT RECEIVED. PT LAYING IN BED RECEIVING UPDRAFT. PROVIDED TYLENOL PER PT REQUEST. RR EVEN AND UNALBORED. NO S/S OF DISTRESS NOTED AT THIS TIME. NO FURTHER NEEDS EXPRESSED. CALL LIGHT IN REACH. WILL CTM.
[2019-02-19 20:30] VITALS: BP 108/63
[2019-02-20 00:13] VITALS: BP 110/67
[2019-02-20 04:26] VITALS: BP 116/65
[2019-02-20 06:32] LABS: HEMATOCRIT 28.5 % (42.0-54.0); HEMOGLOBIN 8.6 g/dL (13.5-17.5); MCH 29.7 pg (26.0-34.0); MCHC 30.2 g/dL (31.0-37.0); MEAN PLATELET VOLUME 9.7 fL (7.4-10.4); PLATELET COUNT 223 10x3/uL (130-400); RDW 18.9 % (11.5-14.5); WBC 6.4 10x3/uL (4.8-10.8)
[2019-02-20 06:33] LABS: MCV 98.3 fL (80.0-100.0)
[2019-02-20 06:48] LABS: ALBUMIN 2.7 g/dL (3.4-5.0); ANION GAP 8.5 mmol/L (8-16); BILIRUBIN - TOTAL 0.64 mg/dL (0.2-1.3); CARBON DIOXIDE 33.6 mmol/L (21.0-32.0); CREATININE - SERUM 1.9 mg/dL (0.6-1.3); POTASSIUM - SERUM 4.1 mmol/L (3.5-5.1); PROTEIN - SERUM 8.3 g/dL (6.4-8.2)
[2019-02-20 10:14] LABS: BASOPHILS 1 % (0-2); EOSINOPHILS 4 % (0-7); HYPOCHROMASIA OCC; LYMPHOCYTES 6 % (15-50); MONOCYTES 13 % (2-11); NEUTROPHILS 75 % (40-80)
[2019-02-20 10:15] LABS: ANISOCYTOSIS OCC; PLATELET ESTIMATE NORMAL
[2019-02-20 10:42] VITALS: BP 110/64
--- NOTE | 2019-02-20 12:30 | NUR ---
ROUNDED WITH DR. GAINES HE HAD PT COUGH IN PAPER TOWEL PT DID NOT COUGH UP ANY SPUTUM OR BLOOD. DR. GAINES STATES FROM HIS STANDPOINT THERE IS NOTHING MORE HE CAN DO FOR PT AND HE IS OK FOR PT TO DISCHARGE TOMORROW OR THE DAY AFTER AND TO LET PRIMARY KNOW. I VERBALIZED UNDERSTANDING. CALLED AND SPOKE WITH CALDERON VICK AND SHE STATES SINCE PT WAS VOMITING UP BLOOD SHE PLACED A CONSULT FOR DR. GRANT AND PT WILL MOST LIKELY NEED HOSPICE. I VERBALIZED UNDERSTANDING.
[2019-02-20 13:34] VITALS: BP 101/58
--- NOTE | 2019-02-20 14:26 | NUR ---
I have reviewed this patient and I concur with the Shift Assessment completed by the Licensed Practical Nurse today this shift.
--- NOTE | 2019-02-20 19:00 | NUR ---
EVENING ROUNDS COMPLETE. PT LAYING IN BED, AAOX4, NO SIGNS OF DISTRESS. PT DENIES ANY NEEDS AT THIS TIME. CL IN REACH, BED IN LOWEST POSITION.
[2019-02-20 20:35] VITALS: BP 105/58
[2019-02-21 00:30] VITALS: BP 117/67
[2019-02-21 04:30] VITALS: BP 107/65
[2019-02-21 07:02] LABS: BASOPHILS 0.3 % (0-2); HEMATOCRIT 27.6 % (42.0-54.0); HEMOGLOBIN 8.4 g/dL (13.5-17.5); IMMATURE GRANULOCYTES 0.3 % (0-5); LYMPHOCYTES 9.9 % (15-50); MCH 29.6 pg (26.0-34.0); MCHC 30.4 g/dL (31.0-37.0); MCV 97.2 fL (80.0-100.0); MEAN PLATELET VOLUME 9.6 fL (7.4-10.4); MONOCYTES 12.1 % (2-11); NEUTROPHILS 69.4 % (40-80); PLATELET COUNT 223 10x3/uL (130-400); RBC 2.84 10x6/uL (4.20-6.10); RDW 18.7 % (11.5-14.5); WBC 6.3 10x3/uL (4.8-10.8)
[2019-02-21 07:04] LABS: ALBUMIN 2.7 g/dL (3.4-5.0); ANION GAP 9.9 mmol/L (8-16); BILIRUBIN - TOTAL 0.67 mg/dL (0.2-1.3); CALCIUM 8.9 mg/dL (8.5-10.1); CARBON DIOXIDE 33.9 mmol/L (21.0-32.0); POTASSIUM - SERUM 3.8 mmol/L (3.5-5.1)
--- NOTE | 2019-02-21 07:21 | NUR ---
PT RESTING COMFORTABLY IN BED, GETTING A BREATHING TREATMENT RIGHT NOW. PT DENIES ANY NEEDS AT THIS TIME. BED ALARM ON, BEDSIDE RAILS X2, CALL LIGHT IN REACH NAD NOTED, WILL CONTINUE PLAN OF CARE.
[2019-02-21 09:24] VITALS: BP 114/68
--- NOTE | 2019-02-21 11:22 | MORECARE ---
CASE MANAGEMENT DISCHARGE SUMMARY PATIENT: VIVIEN REYES UNIT: [id number] ADM DATE: 02/01/19 AGE: 63 : 57 SEX: M ROOM/BED: D.4261 AUTHOR: NOHEMI,DOC PHYSICIAN: REFERRING PHYSICIAN: KEELY LOZANO MD DATE OF SERVICE: 02/21/19 Discharge Plan Patient Name: VIVIEN REYES Facility: [facility] : 1955 Planned Disposition: Home Anticipated Discharge Date: Discharge Date: Expected LOS: Initial Reviewer: [email or web address] Initial Review Date: 02/01/2019 Generated: 02/21/19 12:21 pm DCP- Discharge Planning Updated by [email or web address]: Robel Brown on 02/13/19 3:[address] Patient Name: VIVIEN REYES Encounter No: [id number] : 1955 Primary Insurance: [facility] MEDICARE SOLUTIONS Anticipated DC Date: Planned Disposition: Home WITH HOME HEALTH PLANNED EXTERAL PROVIDER: [facility] DCP follow-up note: CM MET WITH PT IN ROOM TO DISCUSS DISCHARGE NEEDS AND PLANNING. CM DISCUSSED AVAILABILITY OF HOME HEALTH, REHAB SERVICES AND MEDICAL EQUIPMENT. PT REFUSES [facility] OR [facility]. PT PLANS TO DISCHARGE HOME AND WILL ACCEPT [facility]. PT DENIES FURTHER DISCHARGE NEEDS. FAMILY TO TRANSPORT HOME AT DISCHARGE. PT REFUSES [facility] AND [facility]. PT WILL ACCEPT HOME HEALTH WITH [facility] FOR DISCHARGE HOME. CM TO FOLLOW AND ASSIST NEEDED. Robel Brown, CASE MANAGEMENT DCP- Discharge Planning Updated by [id number]: Riddhi Verdin on 02/08/19 9:[address] Spoke to Diamante Thurston regarding referral. Riddhi Verdin RN, [facility] DCP- Discharge Planning Updated by [email or web address]: Riddhi Verdin on 02/08/19 9:[address] DC PLAN: Return home with his brother in law there at . Referral to [facility] . ANTICIPATED DC NEEDS: Wants Home Health. CM met with patient to complete initial dc planning assessment. CM educated patient on the CM role and verbal consent given by patient to complete assessment. CM verified patient's address, phone number, and emergency contact phone numbers. Patient lives at home with his brother in law staying there at . He reports he has friends that also check on him throughout the day. He is mostly able to care for himself but sometimes needs help with ADL's. He reports he has plenty of help as needed. At discharge patient plans to return home and feels this is a safe discharge. CM discussed availability of home health, rehab services, and medical equipment. Patient stated he would like to have HH at time of dc. HELENE discussed with patient and he did not have a preference on HH agencies. HELENE signed for [facility]. Copy left with patient and copy placed on his chart. Order received for HH services and referral faxed to [facility]. Patient reports his brother in law will transport him home at time of discharge. CM will continue to follow and will assist as needed with dc plans/needs. Riddhi Verdin RN, [facility] DCPIA - Discharge Planning Initial Assessment Updated by [email or web address]: Riddhi Verdin on 02/08/19 10:36 am * Is the patient Alert and Oriented? Yes * PCP Dr. Herrera * Pharmacy [facility] * Preadmission Environment Home with Family * ADLs Partial Dependent * Partial ADLs (Assistance needed) Bathing * Equipment Nebulizer Oxygen Rolling Walker * Other Equipment O2 with portability - [employer] is DME provider. * List name and contact numbers for known caregivers / representatives who currently or will assist patient after discharge: Ashlie Christopher [facility] - [phone] * Verbal permission to speak to the caregivers and representatives has been obtained from the patient. Yes * Community resources currently utilized None * Additional services required to return to the preadmission environment? Yes * Can the patient safely return to the preadmission environment? Yes * Has this patient been hospitalized within the prior 30 days at any hospital? No External Providers External Provider: [facility] Next Contact Date: 02/21/2019 Service Request Date: Service Type: Resolution: Reviewer: Comments: Last DP export: 02/13/19 4:00 Patient Name: VIVIEN REYES Page [phone] at 1122 All edits/amendments must be made on the electronic document DICTATION DATE: 02/21/19 1121 INTERVENTIONAL NEURORADIOLOGIST: LEIGH 02/21/19 1121 RPT#: [id number] RI DATE: STATUS: ADM IN [facility] [address] [place] [address] END OF REPORT
--- NOTE | 2019-02-21 11:45 | MORECARE ---
CASE MANAGEMENT DISCHARGE SUMMARY PATIENT: VIVIEN REYES UNIT: [id number] ADM DATE: 02/01/19 AGE: 63 : 57 SEX: M ROOM/BED: D.9236 AUTHOR: NOHEMI,DOC PHYSICIAN: REFERRING PHYSICIAN: KEELY LOZANO MD DATE OF SERVICE: 02/21/19 Discharge Plan Patient Name: VIVIEN REYES Facility: [facility]:[place] : 1955 Planned Disposition: Home with Hospice Anticipated Discharge Date: 02/21/19 Discharge Date: Expected LOS: 20 Initial Reviewer: [email or web address] Initial Review Date: 02/01/2019 Generated: 02/21/19 12:45 pm DCP- Discharge Planning Updated by [id number]: Robel Brown on 02/13/19 3:[address] Patient Name: VIVIEN REYES Encounter No: [id number] : 1955 Primary Insurance: [facility] MEDICARE SOLUTIONS Anticipated DC Date: Planned Disposition: Home WITH HOME HEALTH PLANNED EXTERAL PROVIDER: [facility] DCP follow-up note: CM MET WITH PT IN ROOM TO DISCUSS DISCHARGE NEEDS AND PLANNING. CM DISCUSSED AVAILABILITY OF HOME HEALTH, REHAB SERVICES AND MEDICAL EQUIPMENT. PT REFUSES PRISON OR [facility] HOME PLACEMENT. PT PLANS TO DISCHARGE HOME AND WILL ACCEPT [facility]. PT DENIES FURTHER DISCHARGE NEEDS. FAMILY TO TRANSPORT HOME AT DISCHARGE. PT REFUSES PRISON AND GROUP HOME FACILITY PLACEMENT. PT WILL ACCEPT HOME HEALTH WITH [facility] FOR DISCHARGE HOME. CM TO FOLLOW AND ASSIST NEEDED. Robel Brown, CASE MANAGEMENT DCP- Discharge Planning Updated by [id number]: Riddhi Verdin on 02/08/19 9:[address] Spoke to Diamante Thurston regarding referral. Riddhi Verdin RN, [facility] DCP- Discharge Planning Updated by [email or web address]: Riddhi Verdin on 02/08/19 9:[address] DC PLAN: Return home with his brother in law there at . Referral to [facility] . ANTICIPATED DC NEEDS: Wants Home Health. CM met with patient to complete initial dc planning assessment. CM educated patient on the CM role and verbal consent given by patient to complete assessment. CM verified patient's address, phone number, and emergency contact phone numbers. Patient lives at home with his brother in law staying there at . He reports he has friends that also check on him throughout the day. He is mostly able to care for himself but sometimes needs help with ADL's. He reports he has plenty of help as needed. At discharge patient plans to return home and feels this is a safe discharge. CM discussed availability of home health, rehab services, and medical equipment. Patient stated he would like to have HH at time of dc. HELENE discussed with patient and he did not have a preference on HH agencies. HELENE signed for [facility]. Copy left with patient and copy placed on his chart. Order received for HH services and referral faxed to [facility]. Patient reports his brother in law will transport him home at time of discharge. CM will continue to follow and will assist as needed with dc plans/needs. Riddhi Verdin RN, [facility] DCPIA - Discharge Planning Initial Assessment Updated by [id number]: Riddhi Verdin on 02/08/19 10:36 am * Is the patient Alert and Oriented? Yes * PCP Dr. Herrera * Pharmacy [facility] * Preadmission Environment Home with Family * ADLs Partial Dependent * Partial ADLs (Assistance needed) Bathing * Equipment Nebulizer Oxygen Rolling Walker * Other Equipment O2 with portability - [employer] is DME provider. * List name and contact numbers for known caregivers / representatives who currently or will assist patient after discharge: Ashlie Christopher [facility] - [phone] * Verbal permission to speak to the caregivers and representatives has been obtained from the patient. Yes * Community resources currently utilized None * Additional services required to return to the preadmission environment? Yes * Can the patient safely return to the preadmission environment? Yes * Has this patient been hospitalized within the prior 30 days at any hospital? No Last DP export: 02/21/19 10:22 a Patient Name: VIVIEN REYES Page [id number] at 1145 All edits/amendments must be made on the electronic document DICTATION DATE: 02/21/19 1145 INFORMATION SYSTEMS PROJECT MANAGER: LEIGH 02/21/19 1145 RPT#: [id number] DC DATE: STATUS: ADM IN [facility] [address] [place] [address] END OF REPORT
--- NOTE | 2019-02-21 11:58 | MORECARE ---
CASE MANAGEMENT DISCHARGE SUMMARY PATIENT: VIVIEN REYES UNIT: [id number] ADM DATE: 02/01/19 AGE: 63 : 57 SEX: M ROOM/BED: D.6506 AUTHOR: NOHEMI,DOC PHYSICIAN: REFERRING PHYSICIAN: KEELY LOZANO MD DATE OF SERVICE: 02/21/19 Discharge Plan Patient Name: VIVIEN REYES Facility: [facility]:[place] : 1955 Planned Disposition: Home with Hospice Anticipated Discharge Date: 02/21/19 Discharge Date: Expected LOS: 20 Initial Reviewer: [email or web address] Initial Review Date: 02/01/2019 Generated: 02/21/19 12:57 pm Comments DCP- Discharge Planning Updated by [id number]: Robel Brown on 02/21/19 10:[address] Patient Name: VIVIEN REYES Encounter No: [id number] : 1955 Primary Insurance: [facility] MEDICARE SOLUTIONS Anticipated DC Date: 02-21-2019 Planned Disposition: Home with Hospice External Planned Provider: [facility] DCP follow-up note: CM RECEIVED HOSPICE ORDER, MET WITH PT IN ROOM TO DISCUSS DISCHARGE NEEDS AND PLANNING. CM DISCUSSED AVAILABILITY OF HOME HEALTH, REHAB SERVICES AND MEDICAL EQUIPMENT. PT WANTS TO GO HOME WITH HOSPICE. HOSPICE LISITING PROVIDED, PT SIGNED CONSENT FOR HOSPICE HOME CARE. PT REPORTS HIS BROTHER IS TO TRANSPORT HOME AT DISCHARGE. IMPORTANT MESSAGE FROM MEDICARE PROVIDED AND EXPLAINED. PT STATES HE WANTS TO GO HOME TOMORROW, CM EXPLAINED THAT THE DOCTOR WILL DISCHARGE IF ALL ARRANGEMENTS ARE COMPLETED TODAY. PT STATES HIS FAMILY WILL ASSIST WITH ACCESS TO THE HOME FOR HOSPICE TO ARRANGE MEDICAL EQUIPMENT. CM CALLED HOSP[facility] HOME CARE, , SOPKE TO JOHANNA WHO TOOK REFERRAL AND WILL HAVE NURSE ASSESS PT TODAY. CM INFORMED JOHANNA THAT THE DOCTOR WILL DISCHARGE PT HOME WITH HOSPICE WHEN ALL ARRANGEMENTS ARE COMPLETED. CM FAXED REFERRAL TO [facility] AT [phone]. CM WAITING FOR [facility] TO EVALUATE PT FOR HOME HOSPICE AND MAKE ALL HOME ARRANGEMENTS FOR DISCHARGE SOON POSSIBLE. CM TO FOLLOW AND ASSIST NEEDED. HORACIO Garcia DCP- Discharge Planning Updated by [email or web address]: Robel Brown on 02/13/19 3:[address] Patient Name: VIVIEN REYES Encounter No: [id number] : 1955 Primary Insurance: [facility] MEDICARE SOLUTIONS Anticipated DC Date: Planned Disposition: Home WITH HOME HEALTH PLANNED EXTERAL PROVIDER: [facility] DCP follow-up note: CM MET WITH PT IN ROOM TO DISCUSS DISCHARGE NEEDS AND PLANNING. CM DISCUSSED AVAILABILITY OF HOME HEALTH, REHAB SERVICES AND MEDICAL EQUIPMENT. PT REFUSES [facility] OR [facility] HOME PLACEMENT. PT PLANS TO DISCHARGE HOME AND WILL ACCEPT [facility]. PT DENIES FURTHER DISCHARGE NEEDS. FAMILY TO TRANSPORT HOME AT DISCHARGE. PT REFUSES [facility] AND [facility] FACILITY PLACEMENT. PT WILL ACCEPT HOME HEALTH WITH [facility] FOR DISCHARGE HOME. CM TO FOLLOW AND ASSIST NEEDED. Robel Brown, CASE MANAGEMENT DCP- Discharge Planning Updated by [id number]: Riddhi Verdin on 02/08/19 9:[address] Spoke to Diamante Thurston regarding referral. Riddhi Verdin RN, [facility] DCP- Discharge Planning Updated by [id number]: Riddhi Verdin on 02/08/19 9:[address] DC PLAN: Return home with his brother in law there at . Referral to [facility]. ANTICIPATED DC NEEDS: Wants Home Health. CM met with patient to complete initial dc planning assessment. CM educated patient on the CM role and verbal consent given by patient to complete assessment. CM verified patient's address, phone number, and emergency contact phone numbers. Patient lives at home with his brother in law staying there at . He reports he has friends that also check on him throughout the day. He is mostly able to care for himself but sometimes needs help with ADL's. He reports he has plenty of help as needed. At discharge patient plans to return home and feels this is a safe discharge. CM discussed availability of home health, rehab services, and medical equipment. Patient stated he would like to have HH at time of dc. HELENE discussed with patient and he did not have a preference on HH agencies. HELENE signed for [facility]. Copy left with patient and copy placed on his chart. Order received for HH services and referral faxed to [facility]. Patient reports his brother in law will transport him home at time of discharge. CM will continue to follow and will assist as needed with dc plans/needs. Riddhi Verdin RN, [facility] DCPIA - Discharge Planning Initial Assessment Updated by [email or web address]: Riddhi Verdin on 02/08/19 10:36 am * Is the patient Alert and Oriented? Yes * PCP Dr. Herrera * Pharmacy [facility] * Preadmission Environment Home with Family * ADLs Partial Dependent * Partial ADLs (Assistance needed) Bathing * Equipment Nebulizer Oxygen Rolling Walker * Other Equipment O2 with portability - [employer] is DME provider. * List name and contact numbers for known caregivers / representatives who currently or will assist patient after discharge: Ashlie Christopher [facility] - [phone] * Verbal permission to speak to the caregivers and representatives has been obtained from the patient. Yes * Community resources currently utilized None * Additional services required to return to the preadmission environment? Yes * Can the patient safely return to the preadmission environment? Yes * Has this patient been hospitalized within the prior 30 days at any hospital? No Coverage Notice Reviewer: IVÁN Brown Notice Issued Date-Time: 02/21/2019 9:25 Notice Type: IM Discharge Notice Notice Delivered To: Patient Relationship to Patient: Hanging Flags Decorator Name: Delivery Method: HAND - Hand Delivered Shae Days: Prior Verbal Notification: Recipient Understood Notice: Yes Recipient Signature: Yes Med Rec Note Co-signed by Attending: Coverage Notice Comment: Reviewer: IVÁN Brown Notice Issued Date-Time: 02/21/2019 9:25 Notice Type: Patient Choice Letter Notice Delivered To: Patient Relationship to Patient: Hanging Flags Decorator Name: Delivery Method: HAND - Hand Delivered Shae Days: Prior Verbal Notification: Recipient Understood Notice: Yes Recipient Signature: Yes Med Rec Note Co-signed by Attending: Coverage Notice Comment: [facility] Last DP export: 02/21/19 10:45 a Patient Name: VIVIEN REYES Page [phone] at 1158 All edits/amendments must be made on the electronic document DICTATION DATE: 02/21/19 115 PIPE THREADER: LEIGH 02/21/19 115 RPT#: [id number] DC DATE: STATUS: ADM IN [facility] [address] [place] [address] END OF REPORT
--- NOTE | 2019-02-21 12:54 | NUR ---
PT RESTING COMFORTABLY IN BED, ASKED FOR WARM BLANKET, PROVIDED PT WITH WARM BLANKET. PT DENIES ANY OTHER NEEDS AT THIS TIME. [facility] NOT[facility], WILL CONTINUE TO MONITOR.
--- NOTE | 2019-02-21 13:43 | NUR ---
Nutrition Follow-up: Eating well. Ate 100% of breakfast this AM. Per GI note, pt with poor dentition/loose tooth and dry, cracked lips (fissure); pt reports difficult chewing some foods (meat in particular). Noted plans to d/c with hospice. Diet: Renal No new wt Last BM: 02/21 Labs noted: Hgb 8.4, Hct 27.6, K+ 3.8, Alb 2.7 Meds noted: Bumex, Lactulose -Rec liberalize to cardiac diet. -Dental soft added to current diet order. -RD following.
[2019-02-21 13:56] VITALS: BP 108/65
[2019-02-21 17:02] VITALS: BP 129/63
--- NOTE | 2019-02-21 17:12 | NUR ---
WAS INFORMED BY PT'S BROTHER THAT PT DOES NOT WANT TO BE ON LIFE SUPPORT IF HE CODE. WANTS EVERYTHING ELSE BUT TO BE PLACE ON VENTILATOR. VERIFIED THIS INFORMATION WITH PT, WHO IS IN AGREENANCE WITH WHAT HIS BROTHER IS INFORMING THIS NURSE, FILLED OUT PAPER AND WILL PLACE ON CHART FOR DOCTOR TO SIGN IN AM.
--- NOTE | 2019-02-21 19:00 | NUR ---
EVENING ROUNDS COMPLETE. PT SITTING UP IN BED, NO SIGNS OF DISTRESS. AAOX4, PT DENIES ANY PAIN OR NEEDS AT THIS TIME. CL IN REACH, BED IN LOWEST POSITION.
[2019-02-21 20:33] VITALS: BP 115/56
[2019-02-22 04:28] VITALS: BP 118/62
[2019-02-22 07:15] LABS: ALBUMIN 2.7 g/dL (3.4-5.0); ANION GAP 8.6 mmol/L (8-16); BILIRUBIN - TOTAL 0.62 mg/dL (0.2-1.3); CALCIUM 8.9 mg/dL (8.5-10.1); CARBON DIOXIDE 33.6 mmol/L (21.0-32.0); CREATININE - SERUM 1.9 mg/dL (0.6-1.3); POTASSIUM - SERUM 4.2 mmol/L (3.5-5.1); PROTEIN - SERUM 8.2 g/dL (6.4-8.2)
[2019-02-22 07:21] LABS: BASOPHILS 0.5 % (0-2); EOSINOPHILS 8.4 % (0-7); HEMATOCRIT 26.9 % (42.0-54.0); HEMOGLOBIN 8.3 g/dL (13.5-17.5); IMMATURE GRANULOCYTES 0.3 % (0-5); LYMPHOCYTES 13.1 % (15-50); MCH 29.9 pg (26.0-34.0); MCHC 30.9 g/dL (31.0-37.0); MCV 96.8 fL (80.0-100.0); MEAN PLATELET VOLUME 9.6 fL (7.4-10.4); MONOCYTES 10.9 % (2-11); NEUTROPHILS 66.8 % (40-80); PLATELET COUNT 222 10x3/uL (130-400); RBC 2.78 10x6/uL (4.20-6.10); RDW 18.7 % (11.5-14.5)
--- NOTE | 2019-02-22 07:41 | MORECARE ---
CASE MANAGEMENT DISCHARGE SUMMARY PATIENT: VIVIEN REYES UNIT: [id number] ADM DATE: 02/01/19 AGE: 63 : 57 SEX: M ROOM/BED: D.0047 AUTHOR: NOHEMI,DOC PHYSICIAN: REFERRING PHYSICIAN: KEELY LOZANO MD DATE OF SERVICE: 02/22/19 Discharge Plan Patient Name: VIVIEN REYES Facility: [facility]:[place] : 1955 Planned Disposition: Home with Hospice Anticipated Discharge Date: 02/22/19 Discharge Date: Expected LOS: 21 Initial Reviewer: [id number] Initial Review Date: 02/01/2019 Generated: 02/22/19 8:41 am Comments DCP- Discharge Planning Updated by [id number]: Robel Brown on 02/21/19 10:[address] Patient Name: VIVIEN REYES Encounter No: [id number] : 1955 Primary Insurance: [facility] MEDICARE SOLUTIONS Anticipated DC Date: 02-21-2019 Planned Disposition: Home with Hospice External Planned Provider: HOSPICE HOME CARE DCP follow-up note: CM RECEIVED HOSPICE ORDER, MET WITH PT IN ROOM TO DISCUSS DISCHARGE NEEDS AND PLANNING. CM DISCUSSED AVAILABILITY OF HOME HEALTH, REHAB SERVICES AND MEDICAL EQUIPMENT. PT WANTS TO GO HOME WITH HOSPICE. HOSPICE LISITING PROVIDED, PT SIGNED CONSENT FOR HOSPICE HOME CARE. PT REPORTS HIS BROTHER IS TO TRANSPORT HOME AT DISCHARGE. IMPORTANT MESSAGE FROM MEDICARE PROVIDED AND EXPLAINED. PT STATES HE WANTS TO GO HOME TOMORROW, CM EXPLAINED THAT THE DOCTOR WILL DISCHARGE IF ALL ARRANGEMENTS ARE COMPLETED TODAY. PT STATES HIS FAMILY WILL ASSIST WITH ACCESS TO THE HOME FOR HOSPICE TO ARRANGE MEDICAL EQUIPMENT. CM CALLED HOSPICE HOME CARE, , SOPKE TO JOHANNA WHO TOOK REFERRAL AND WILL HAVE NURSE ASSESS PT TODAY. CM INFORMED JOHANNA THAT THE DOCTOR WILL DISCHARGE PT HOME WITH HOSPICE WHEN ALL ARRANGEMENTS ARE COMPLETED. CM FAXED REFERRAL TO HOSPICE HOME CARE AT [phone]. CM WAITING FOR HOSPICE HOME CARE TO EVALUATE PT FOR HOME HOSPICE AND MAKE ALL HOME ARRANGEMENTS FOR DISCHARGE SOON POSSIBLE. CM TO FOLLOW AND ASSIST NEEDED. Robel Brown CASE JACQUIE DCP- Discharge Planning Updated by [id number]: Robel Brown on 02/13/19 3:[address] Patient Name: VIVIEN REYES Encounter No: [id number] : 1955 Primary Insurance: [facility] MEDICARE SOLUTIONS Anticipated DC Date: Planned Disposition: Home WITH HOME HEALTH PLANNED EXTERAL PROVIDER: [facility] DCP follow-up note: CM MET WITH PT IN ROOM TO DISCUSS DISCHARGE NEEDS AND PLANNING. CM DISCUSSED AVAILABILITY OF HOME HEALTH, REHAB SERVICES AND MEDICAL EQUIPMENT. PT REFUSES ALF OR LONGTERM HOME PLACEMENT. PT PLANS TO DISCHARGE HOME AND WILL ACCEPT [facility]. PT DENIES FURTHER DISCHARGE NEEDS. FAMILY TO TRANSPORT HOME AT DISCHARGE. PT REFUSES ALF AND LONGTERM FACILITY PLACEMENT. PT WILL ACCEPT HOME HEALTH WITH [facility] FOR DISCHARGE HOME. CM TO FOLLOW AND ASSIST NEEDED. Robel Brown, CASE MANAGEMENT DCP- Discharge Planning Updated by [id number]: Riddhi Verdin on 02/08/19 9:[address] Spoke to Diamante Thurston regarding referral. Riddhi Verdin RN, [facility] DCP- Discharge Planning Updated by [id number]: Riddhi Verdin on 02/08/19 9:[address] DC PLAN: Return home with his brother in law there at . Referral to [facility]. ANTICIPATED DC NEEDS: Wants Home Health. CM met with patient to complete initial dc planning assessment. CM educated patient on the CM role and verbal consent given by patient to complete assessment. CM verified patient's address, phone number, and emergency contact phone numbers. Patient lives at home with his brother in law staying there at . He reports he has friends that also check on him throughout the day. He is mostly able to care for himself but sometimes needs help with ADL's. He reports he has plenty of help as needed. At discharge patient plans to return home and feels this is a safe discharge. CM discussed availability of home health, rehab services, and medical equipment. Patient stated he would like to have HH at time of dc. HELENE discussed with patient and he did not have a preference on HH agencies. HELENE signed for [facility]. Copy left with patient and copy placed on his chart. Order received for HH services and referral faxed to [facility]. Patient reports his brother in law will transport him home at time of discharge. CM will continue to follow and will assist as needed with dc plans/needs. Riddhi Verdin RN, [facility] DCPIA - Discharge Planning Initial Assessment Updated by [id number]: Riddhi Verdin on 02/08/19 10:36 am * Is the patient Alert and Oriented? Yes * PCP Dr. Herrera * Pharmacy [facility] * Preadmission Environment Home with Family * ADLs Partial Dependent * Partial ADLs (Assistance needed) Bathing * Equipment Nebulizer Oxygen Rolling Walker * Other Equipment O2 with portability - [employer] is DME provider. * List name and contact numbers for known caregivers / representatives who currently or will assist patient after discharge: Ashlie Christopher [facility] - [phone] * Verbal permission to speak to the caregivers and representatives has been obtained from the patient. Yes * Community resources currently utilized None * Additional services required to return to the preadmission environment? Yes * Can the patient safely return to the preadmission environment? Yes * Has this patient been hospitalized within the prior 30 days at any hospital? No Coverage Notice Reviewer: IVÁN Brown Notice Issued Date-Time: 02/21/2019 9:25 Notice Type: IM Discharge Notice Notice Delivered To: Patient Relationship to Patient: Avionics Systems Technician Name: Delivery Method: HAND - Hand Delivered Shae Days: Prior Verbal Notification: Recipient Understood Notice: Yes Recipient Signature: Yes Med Rec Note Co-signed by Attending: Coverage Notice Comment: Reviewer: IVÁN Brown Notice Issued Date-Time: 02/21/2019 9:25 Notice Type: Patient Choice Letter Notice Delivered To: Patient Relationship to Patient: Avionics Systems Technician Name: Delivery Method: HAND - Hand Delivered Shae Days: Prior Verbal Notification: Recipient Understood Notice: Yes Recipient Signature: Yes Med Rec Note Co-signed by Attending: Coverage Notice Comment: HOSPICE HOME CARE Last DP export: 02/21/19 10:58 a Patient Name: VIVIEN REYES Page [id number] at 0741 All edits/amendments must be made on the electronic document DICTATION DATE: 02/22/19740 WIRE STRANDER: LEIGH 02/22/19740 RPT#: [id number] DC DATE: STATUS: ADM IN [facility] [address] [place] [address] END OF REPORT
--- NOTE | 2019-02-22 07:49 | MORECARE ---
CASE MANAGEMENT DISCHARGE SUMMARY PATIENT: VIVIEN REYES SR UNIT: [id number] ADM DATE: 02/01/19 AGE: 63 : 57 SEX: M ROOM/BED: D.4082 AUTHOR: NOHEMIDOC PHYSICIAN: REFERRING PHYSICIAN: KEELY LOZANO MD DATE OF SERVICE: 02/22/19 Discharge Plan Patient Name: VIVIEN REYES Facility: [facility]:[place] : 1955 Planned Disposition: Home with Hospice Anticipated Discharge Date: 02/22/19 Discharge Date: Expected LOS: 21 Initial Reviewer: [id number] Initial Review Date: 02/01/2019 Generated: 02/22/19 8:48 am Comments DCP- Discharge Planning Updated by [id number]: Robel Brown on 02/22/19 6:[address] Patient Name: VIVIEN REYES Encounter No: [id number] : 1955 Primary Insurance: [facility] MEDICARE SOLUTIONS Anticipated DC Date: 02-22-2019 Planned Disposition: Home with Hospice External Planned Provider: HOSPICE HOME CARE DCP follow-up note: ON 02-21-19 AT APPROXIMATELY 1730 HOURSE, CM SPOKE TO HOSPICE HOME CARE NURSE WHO HAS MET WITH PT AND FAMILY, EVAULATED AND WILL ACCEPT FOR HOSPICE 02-22-19 AND WILL ADMIT UPON PT'S ARRIVAL AT HOME. OXYGEN HAS BEEN DELIVERED TO ROOM FOR PT'S DISCHARGE HOME. FAMILY TO TRANSPORT HOME. CM SPOKE TO PT IN ROOM, PT IN AGREEMENT WITH PLANNED DISCHARGE IN THE MORNING, 02-22-19. FOR DISCHARGE, FAX DISCHARGE INFORMATION TO HOSPICE HOME CARE AT [phone]. NOTIFY HOSPICE HOME CARE, , WHEN PT LEAVES HOSPITAL. PT TO ADMIT TO HOSPICE HOME CARE UPON ARRIVAL AT HOME. FAMILY TO TRANSPORT. Robel Brown CASE JACQUIE DCP- Discharge Planning Updated by [id number]: Robel Brown on 02/21/19 10:[address] Patient Name: VIVIEN REYES Encounter No: [id number] : 1955 Primary Insurance: [employer] MEDICARE SOLUTIONS Anticipated DC Date: 02-21-2019 Planned Disposition: Home with Hospice External Planned Provider: HOSPICE HOME CARE DCP follow-up note: CM RECEIVED HOSPICE ORDER, MET WITH PT IN ROOM TO DISCUSS DISCHARGE NEEDS AND PLANNING. CM DISCUSSED AVAILABILITY OF HOME HEALTH, REHAB SERVICES AND MEDICAL EQUIPMENT. PT WANTS TO GO HOME WITH HOSPICE. HOSPICE LISITING PROVIDED, PT SIGNED CONSENT FOR HOSPICE HOME CARE. PT REPORTS HIS BROTHER IS TO TRANSPORT HOME AT DISCHARGE. IMPORTANT MESSAGE FROM MEDICARE PROVIDED AND EXPLAINED. PT STATES HE WANTS TO GO HOME TOMORROW, CM EXPLAINED THAT THE DOCTOR WILL DISCHARGE IF ALL ARRANGEMENTS ARE COMPLETED TODAY. PT STATES HIS FAMILY WILL ASSIST WITH ACCESS TO THE HOME FOR HOSPICE TO ARRANGE MEDICAL EQUIPMENT. CM CALLED HOSPICE HOME CARE, , SOPKE TO JOHANNA WHO TOOK REFERRAL AND WILL HAVE NURSE ASSESS PT TODAY. CM INFORMED JOHANNA THAT THE DOCTOR WILL DISCHARGE PT HOME WITH HOSPICE WHEN ALL ARRANGEMENTS ARE COMPLETED. CM FAXED REFERRAL TO HOSPICE HOME CARE AT [phone]. CM WAITING FOR HOSPICE HOME CARE TO EVALUATE PT FOR HOME HOSPICE AND MAKE ALL HOME ARRANGEMENTS FOR DISCHARGE SOON POSSIBLE. CM TO FOLLOW AND ASSIST NEEDED. Robel Brown, CASE MANAGEMENT DCP- Discharge Planning Updated by [id number]: Robel Brown on 02/13/19 3:[address] Patient Name: VIVIEN REYES Encounter No: [id number] : 1955 Primary Insurance: [facility] MEDICARE SOLUTIONS Anticipated DC Date: Planned Disposition: Home WITH HOME HEALTH PLANNED EXTERAL PROVIDER: [facility] DCP follow-up note: CM MET WITH PT IN ROOM TO DISCUSS DISCHARGE NEEDS AND PLANNING. CM DISCUSSED AVAILABILITY OF HOME HEALTH, REHAB SERVICES AND MEDICAL EQUIPMENT. PT REFUSES RETIREMENT OR LONG TERM HOME PLACEMENT. PT PLANS TO DISCHARGE HOME AND WILL [facility]EPT [facility]. PT DENIES FURTHER DISCHARGE NEEDS. FAMILY TO TRANSPORT HOME AT DISCHARGE. PT REFUSES RETIREMENT AND LONG TERM FACILITY PLACEMENT. PT WILL ACCEPT HOME HEALTH WITH [facility] FOR DISCHARGE HOME. CM TO FOLLOW AND ASSIST NEEDED. Robel Brown CASE MANAGEMENT DCP- Discharge Planning Updated by [id number]: Riddhi Verdin on 02/08/19 9:[address] Spoke to Diamante Thurston regarding referral. Riddhi Verdin RN, [facility] DCP- Discharge Planning Updated by [id number]: Riddhi Verdin on 02/08/19 9:[address] DC PLAN: Return home with his brother in law there at . Referral to [facility]. ANTICIPATED DC NEEDS: Wants Home Health. CM met with patient to complete initial dc planning assessment. CM educated patient on the CM role and verbal consent given by patient to complete assessment. CM verified patient's address, phone number, and emergency contact phone numbers. Patient lives at home with his brother in law staying there at . He reports he has friends that also check on him throughout the day. He is mostly able to care for himself but sometimes needs help with ADL's. He reports he has plenty of help as needed. At discharge patient plans to return home and feels this is a safe discharge. CM discussed availability of home health, rehab services, and medical equipment. Patient stated he would like to have HH at time of dc. HELENE discussed with patient and he did not have a preference on HH agencies. HELENE signed for [facility]. Copy left with patient and copy placed on his chart. Order received for HH services and referral faxed to [facility]. Patient reports his brother in law will transport him home at time of discharge. CM will continue to follow and will assist as needed with dc plans/needs. Riddhi Verdin RN, [facility] DCPIA - Discharge Planning Initial Assessment Updated by [id number]: Riddhi Verdin on 02/08/19 10:36 am * Is the patient Alert and Oriented? Yes * PCP Dr. Herrera * Pharmacy [facility] * Preadmission Environment Home with Family * ADLs Partial Dependent * Partial ADLs (Assistance needed) Bathing * Equipment Nebulizer Oxygen Rolling Walker * Other Equipment O2 with portability - [employer] is DME provider. * List name and contact numbers for known caregivers / representatives who currently or will assist patient after discharge: Ashlie Christopher [facility] - [phone] * Verbal permission to speak to the caregivers and representatives has been obtained from the patient. Yes * Community resources currently utilized None * Additional services required to return to the preadmission environment? Yes * Can the patient safely return to the preadmission environment? Yes * Has this patient been hospitalized within the prior 30 days at any hospital? No Coverage Notice Reviewer: [id number] Hudson Brown Notice Issued Date-Time: 02/21/2019 9:25 Notice Type: IM Discharge Notice Notice Delivered To: Patient Relationship to Patient: Blow Molder Name: Delivery Method: HAND - Hand Delivered Shae Days: Prior Verbal Notification: Recipient Understood Notice: Yes Recipient Signature: Yes Med Rec Note Co-signed by Attending: Coverage Notice Comment: Reviewer: [id number] - Robel Brown Notice Issued Date-Time: 02/21/2019 9:25 Notice Type: Patient Choice Letter Notice Delivered To: Patient Relationship to Patient: Blow Molder Name: Delivery Method: HAND - Hand Delivered Shae Days: Prior Verbal Notification: Recipient Understood Notice: Yes Recipient Signature: Yes Med Rec Note Co-signed by Attending: Coverage Notice Comment: HOSPICE HOME CARE Last DP export: 02/22/19 6:41 a Patient Name: VIVIEN REYES Page [id number] at 0749 All edits/amendments must be made on the electronic document DICTATION DATE: 02/22/19747 FOOD PREPARATION SUPERVISOR: LEIGH 02/22/19747 RPT#: [id number] DC DATE: STATUS: ADM IN [facility] [address] [place] [address] END OF REPORT
[2019-02-22 08:56] VITALS: BP 110/73
--- NOTE | 2019-02-22 11:30 | NUR ---
PT TAKEN DOWN VIA WC BY [facility] ACCOMPANIED BY TEN RODRIGUEZ LEFT IN PERSONAL CAR. PT HAS HOME O2 TANK AND IS WEARING O2 AT 3.5L VIA NC.
--- NOTE | 2019-02-22 12:40 | NUR ---
LEFT FA AND LEFT UPPER ARM IV BOTH DC'D WITH CATH INTACT. DISCHARGE INSTRUCTIONS GIVEN TO PT. PT HAS NO FURTHER QUESTIONS. PT CALLED FAMILY TO PICK HIM UP.
--- NOTE | 2019-02-22 12:45 | NUR ---
CALLED HOSPICE AND NOTIFIED THEM PT IS DISCHARGED AND SHOULD BE AT HOME.
--- NOTE | 2019-02-22 13:30 | MORECARE ---
CASE MANAGEMENT DISCHARGE SUMMARY PATIENT: VIVIEN REYES SR UNIT: [id number] ADM DATE: 02/01/19 AGE: 63 : 57 SEX: M ROOM/BED: D.8223 AUTHOR: NOHEMIDOC PHYSICIAN: REFERRING PHYSICIAN: KEELY LOZANO MD DATE OF SERVICE: 02/22/19 Discharge Plan Patient Name: VIVIEN REYES Facility: [facility]:[place] : 1955 Planned Disposition: Home with Hospice Anticipated Discharge Date: 02/22/19 Discharge Date: 02/22/2019 Expected LOS: 21 Initial Reviewer: [email or web address] Initial Review Date: 02/01/2019 Generated: 02/22/19 2:30 pm Comments DCP- Discharge Planning Updated by [id number]: Robel Brown on 02/22/19 12:[address] Patient Name: VIVIEN REYES Encounter No: [id number] : 1955 Primary Insurance: [facility] MEDICARE SOLUTIONS Anticipated DC Date: 02-22-2019 Planned Disposition: Home with Hospice External Planned Provider: HOSPICE HOME CARE DCP follow-up note: CM RECEIVED DISCHARGE ORDER. CM FAXED DISCHARGE INFORMATION TO HOSPICE HOME CARE AT [phone]. CM NOTIFIED JOHANNA OF HOSPICE HOME CARE, . PT TO ADMIT TO HOSPICE HOME CARE UPON ARRIVAL AT HOME. FAMILY TO TRANSPORT. HORACIO Garcia DCP- Discharge Planning Updated by [id number]: Robel Brown on 02/22/19 6:[address] Patient Name: VIVIEN REYES Encounter No: [id number] : 1955 Primary Insurance: [facility] MEDICARE SOLUTIONS Anticipated DC Date: 02-22-2019 Planned Disposition: Home with Hospice External Planned Provider: HOSPICE HOME CARE DCP follow-up note: ON 02-21-19 AT APPROXIMATELY 1730 HOURSE, CM SPOKE TO HOSPICE HOME CARE NURSE WHO HAS MET WITH PT AND FAMILY, EVAULATED AND WILL ACCEPT FOR HOSPICE 02-22-19 AND WILL ADMIT UPON PT'S ARRIVAL AT HOME. OXYGEN HAS BEEN DELIVERED TO ROOM FOR PT'S DISCHARGE HOME. FAMILY TO TRANSPORT HOME. CM SPOKE TO PT IN ROOM, PT IN AGREEMENT WITH PLANNED DISCHARGE IN THE MORNING, 02-22-19. FOR DISCHARGE, FAX DISCHARGE INFORMATION TO HOSPICE HOME CARE AT [phone]. NOTIFY HOSPICE HOME CARE, , WHEN PT LEAVES HOSPITAL. PT TO ADMIT TO HOSPICE HOME CARE UPON ARRIVAL AT HOME. FAMILY TO TRANSPORT. HORACIO Garcia DCP- Discharge Planning Updated by [id number]: Robel Brown on 02/21/19 10:[address] Patient Name: VIVIEN REYES Encounter No: [id number] : 1955 Primary Insurance: [facility] MEDICARE SOLUTIONS Anticipated DC Date: 02-21-2019 Planned Disposition: Home with Hospice External Planned Provider: HOSPICE HOME CARE DCP follow-up note: CM RECEIVED HOSPICE ORDER, MET WITH PT IN ROOM TO DISCUSS DISCHARGE NEEDS AND PLANNING. CM DISCUSSED AVAILABILITY OF HOME HEALTH, REHAB SERVICES AND MEDICAL EQUIPMENT. PT WANTS TO GO HOME WITH HOSPICE. HOSPICE LISITING PROVIDED, PT SIGNED CONSENT FOR HOSPICE HOME CARE. PT REPORTS HIS BROTHER IS TO TRANSPORT HOME AT DISCHARGE. IMPORTANT MESSAGE FROM MEDICARE PROVIDED AND EXPLAINED. PT STATES HE WANTS TO GO HOME TOMORROW, CM EXPLAINED THAT THE DOCTOR WILL DISCHARGE IF ALL ARRANGEMENTS ARE COMPLETED TODAY. PT STATES HIS FAMILY WILL ASSIST WITH ACCESS TO THE HOME FOR HOSPICE TO ARRANGE MEDICAL EQUIPMENT. CM CALLED HOSPICE HOME CARE, , SOPKE TO JOHANNA WHO TOOK REFERRAL AND WILL HAVE NURSE ASSESS PT TODAY. CM INFORMED JOHANNA THAT THE DOCTOR WILL DISCHARGE PT HOME WITH HOSPICE WHEN ALL ARRANGEMENTS ARE COMPLETED. CM FAXED REFERRAL TO HOSPICE HOME CARE AT [phone]. CM WAITING FOR HOSPICE HOME CARE TO EVALUATE PT FOR HOME HOSPICE AND MAKE ALL HOME ARRANGEMENTS FOR DISCHARGE SOON POSSIBLE. CM TO FOLLOW AND ASSIST NEEDED. HORACIO Garcia DCP- Discharge Planning Updated by [id number]: Robel Brown on 02/13/19 3:[address] Patient Name: VIVIEN REYES Encounter No: [id number] : 1955 Primary Insurance: [facility] MEDICARE SOLUTIONS Anticipated DC Date: Planned Disposition: Home WITH HOME HEALTH PLANNED EXTERAL PROVIDER: [facility] DCP follow-up note: CM MET WITH PT IN ROOM TO DISCUSS DISCHARGE NEEDS AND PLANNING. CM DISCUSSED AVAILABILITY OF HOME HEALTH, REHAB SERVICES AND MEDICAL EQUIPMENT. PT REFUSES [facility] OR [facility] PLACEMENT. PT PLANS TO DISCHARGE HOME AND WILL ACCEPT [facility]. PT DENIES FURTHER DISCHARGE NEEDS. FAMILY TO TRANSPORT HOME AT DISCHARGE. PT REFUSES [facility] AND [facility] FACILITY PLACEMENT. PT WILL ACCEPT HOME HEALTH WITH [facility] FOR DISCHARGE HOME. CM TO FOLLOW AND ASSIST NEEDED. Robel Brown, CASE MANAGEMENT DCP- Discharge Planning Updated by [id number]: Riddhi Verdin on 02/08/19 9:[address] Spoke to Diamante Thurston regarding referral. Riddhi Verdin RN, [facility] DCP- Discharge Planning Updated by [id number]: Riddhi Verdin on 02/08/19 9:[address] DC PLAN: Return home with his brother in law there at . Referral to [facility]. ANTICIPATED DC NEEDS: Wants Home Health. CM met with patient to complete initial dc planning assessment. CM educated patient on the CM role and verbal consent given by patient to complete assessment. CM verified patient's address, phone number, and emergency contact phone numbers. Patient lives at home with his brother in law staying there at . He reports he has friends that also check on him throughout the day. He is mostly able to care for himself but sometimes needs help with ADL's. He reports he has plenty of help as needed. At discharge patient plans to return home and feels this is a safe discharge. CM discussed availability of home health, rehab services, and medical equipment. Patient stated he would like to have HH at time of dc. HELENE discussed with patient and he did not have a preference on HH agencies. HELENE signed for [facility]. Copy left with patient and copy placed on his chart. Order received for HH services and referral faxed to [facility]. Patient reports his brother in law will transport him home at time of discharge. CM will continue to follow and will assist as needed with dc plans/needs. Riddhi Verdin RN, [facility] DCPIA - Discharge Planning Initial Assessment Updated by [id number]: Riddhi Verdin on 02/08/19 10:36 am * Is the patient Alert and Oriented? Yes * PCP Dr. Herrera * Pharmacy [facility] * Preadmission Environment Home with Family * ADLs Partial Dependent * Partial ADLs (Assistance needed) Bathing * Equipment Nebulizer Oxygen Rolling Walker * Other Equipment O2 with portability - [employer] is DME provider. * List name and contact numbers for known caregivers / representatives who currently or will assist patient after discharge: Ashlie Christopher [facility] - [phone] * Verbal permission to speak to the caregivers and representatives has been obtained from the patient. Yes * Community resources currently utilized None * Additional services required to return to the preadmission environment? Yes * Can the patient safely return to the preadmission environment? Yes * Has this patient been hospitalized within the prior 30 days at any hospital? No Coverage Notice Reviewer: [id number] Brown Notice Issued Date-Time: 02/21/2019 9:25 Notice Type: IM Discharge Notice Notice Delivered To: Patient Relationship to Patient: Air Conditioning Unit Tester Name: Delivery Method: HAND - Hand Delivered Shae Days: Prior Verbal Notification: Recipient Understood Notice: Yes Recipient Signature: Yes Med Rec Note Co-signed by Attending: Coverage Notice Comment: Reviewer: IVÁN Brown Notice Issued Date-Time: 02/21/2019 9:25 Notice Type: Patient Choice Letter Notice Delivered To: Patient Relationship to Patient: Air Conditioning Unit Tester Name: Delivery Method: HAND - Hand Delivered Shae Days: Prior Verbal Notification: Recipient Understood Notice: Yes Recipient Signature: Yes Med Rec Note Co-signed by Attending: Coverage Notice Comment: HOSPICE HOME CARE Last DP export: 02/22/19 6:49 a Patient Name: VIVIEN REYES Page [id number] at 1330 All edits/amendments must be made on the electronic document DICTATION DATE: 02/22/19 1330 TEXTILE ENGINEER: LEIGH 02/22/19 1330 RPT#: [id number] DC DATE:02/22/19 STATUS: DIS IN [facility] [address] [place] [address] END OF REPORT
== END 2019-02-22 12:46 | disposition home health service (06) | DRG 291 ==
LOC: D.ER 08:16 → D.M2 11:33 → D.ICU 02-15 11:48 → D.M2 02-16 12:42
PROVIDERS: Family Medicine; Family Medicine Adult Medicine; Internal Medicine Hematology & Oncology; Internal Medicine Nephrology; ADMIT Internal Medicine Nephrology; ATTEND Internal Medicine Nephrology
DX: I13.0 Hypertensive heart and chronic kidney disease with heart failure and stage 1 through stage 4 chronic kidney disease, or unspecified chronic kidney disease (principal); I50.23 Acute on chronic systolic (congestive) heart failure; J96.01 Acute respiratory failure with hypoxia; E87.1 Hypo-osmolality and hyponatremia; N17.9 Acute kidney failure, unspecified; F17.213 Nicotine dependence, cigarettes, with withdrawal; J98.11 Atelectasis; R18.8 Other ascites; I82.C11 Acute embolism and thrombosis of right internal jugular vein; D62 Acute posthemorrhagic anemia; K92.2 Gastrointestinal hemorrhage, unspecified; N18.3 Chronic kidney disease, stage 3 (moderate); K72.90 Hepatic failure, unspecified without coma; D50.9 Iron deficiency anemia, unspecified; I25.10 Atherosclerotic heart disease of native coronary artery without angina pectoris; F10.10 Alcohol abuse, uncomplicated; J44.9 Chronic obstructive pulmonary disease, unspecified; I25.5 Ischemic cardiomyopathy; I48.0 Paroxysmal atrial fibrillation; E78.5 Hyperlipidemia, unspecified; I08.1 Rheumatic disorders of both mitral and tricuspid valves; D63.1 Anemia in chronic kidney disease; Z91.19 Patient's noncompliance with other medical treatment and regimen